=== PATIENT | male | born 1935 | race Caucasian/White ===

== ENCOUNTER → 2016-11-16 | Outpatient (CLI) | payer OTHER, BC ==
[~2016-11-16] MED LIST: AMLO-110 PO; ASPCH81X PO; CALC667C4 PO; FLV1 PO; METO25TA56 PO; MULT-648 PO; NVLGI7030 SC; PRAV40TA2 PO; STLS PO
== END | disposition home or self-care (01) ==
LOC: C.LAB 15:28
PROVIDERS: ATTEND Urology
DX: C61 Malignant neoplasm of prostate (principal)

== ENCOUNTER 2017-01-28 07:49 | Day surgery (SDC) | payer OTHER, BC ==
[~2017-01-28] VITALS: Ht 175.3 cm; Wt 97.1 kg
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
[~2017-01-28 07:49] MED LIST changes: +CEFAZOLIN 1000MG/55 ML D5W IV SCH; +CEFAZOLIN 2000 MG/60 ML D5W IV SCH; +SODIUM CHLORIDE 0.9% 1000ML 1,000 ML IV SCH
[2017-01-28 08:32] VITALS: BP 158/70; PULSE 71; TEMP 36.8; O2SAT 94; Ht 175.3 cm; Wt 97.1 kg
--- NOTE | 2017-01-28 08:52 | History & Physical Bridge Note ---
H&P Re-Evaluation Bridge Note: I have examined the patient, reviewed the History & Physical and in the interval since the performance of the History & Physical I have noted the following changes of clinical significance: No changes noted
--- NOTE | 2017-01-28 08:52 | Procedure Note ---
Pre-Mod Sedation Assessment General Date of Moderate Sedation: Jan 28, 2017. Vital Signs: Vital Signs Past 12 Hours Date Time Temp Pulse Resp B/P Pulse Ox O2 Delivery O2 Flow Rate FiO2 01/28/17 08:32 36.8 71 20 158/70 94 Room Air Pre-Sedation Airway Assessment Oral Cavity: Dentures Short Thick Neck: No Hx of Sleep Apnea: No Smoking Status: Never Smoker Mallampati Classification: Class I ASA Classification: Class II Notes The planned sedation has been discussed with the patient and consent obtained. I have identified the patient, determined the appropriateness of sedation and have assessed the patient immediately prior to the procedure. All medicine(s) and interventions are by my order.
[2017-01-28 09:06] LABS: BUN/CREATININE RATIO 10.4 (10-20); CREATININE 6.1 mg/dl (0.60-1.40)
[2017-01-28] MEDS ORDERED: MIDAZOLAM HCL 1 MG/ML 2ML VIAL ONE (09:55)
[2017-01-28] MEDS ORDERED: FENTANYL CITRATE INJ 50 MCG/1 ML 2 ML VIAL ONE (09:55)
[2017-01-28] MEDS ORDERED: LIDOCAINE HCL 1% 20 ML VIAL INJ ONE (10:21)
[2017-01-28] MEDS ORDERED: MIDAZOLAM HCL 1 MG/ML 2ML VIAL IV ONE (10:27)
[2017-01-28] MEDS ORDERED: FENTANYL CITRATE INJ 50 MCG/1 ML 2 ML VIAL IV ONE (10:28)
[2017-01-28] MEDS ORDERED: NURSING VERBAL MED ORDER ONE (10:30)
[2017-01-28] MEDS ORDERED: OPTIRAY 300 IV ONE (10:44)
[2017-01-28 11:00] VITALS: BP 168/74; PULSE 75; TEMP 36.7; O2SAT 95
--- NOTE | 2017-01-28 11:01 | Discharge Instructions ---
Discharge Instructions Date of Service Jan 28, 2017. Visit Reason for Visit: Peripheral Artery Disease -Left Upper Extremity Discharge Discharge Diagnosis / Problem: Malfunctioning fistula Discharge Goals Goal(s): Therapeutic intervention Activity Recommendations Activity Limitations: per Instructions/Follow-up section Anesthesia . Post Anesthesia Instructions: If you have had General Anesthesia or IV Sedation: * Do not drive today. * Resume driving when surgeon permits. * Do not make important decisions or sign legal documents today. * Call surgeon for: 1. Temperature elevations greater than 101 degrees F. 2. Uncontrollable pain. 3. Excessive bleeding. 4. Persistent nausea and vomiting. 5. Medication intolerance (nausea, vomiting or rash). * For nausea and vomiting use only clear liquids such as: tea, soda, bouillon until nausea subsides, then gradually increase diet as tolerated. * If you have any concerns or questions, call your surgeon's office. If physician is unavailable and it is an emergency, call 911 or go to the nearest emergency room. . Instructions / Follow-Up Instructions / Follow-Up Call [phone] to schedule a follow up appointment if one not already scheduled. SPECIAL CARE INSTRUCTIONS: Medications: * Continue to take your medications as directed. If you have been given a prescription for Plavix, please fill it immediately and take as directed. Incision Care: * Your puncture site may have some bruising and minor swelling for about one week. * You will have a small dressing covering your puncture site. You may remove the dressing after 24 hours and shower. You may let the warm soapy water run over it, but be sure to dry the puncture site well and keep it dry. * DO NOT IMMERSE THE INCISION IN A TUB/POOL/etc. UNTIL HEALED. * Puncture sites should be kept covered with a band-aid until it begins to heal. Restrictions: * Depending on whether you leg or arm was punctured to access the arteries, you will be required to lay flat, hold your arm still, or both, for about 4 hours after the procedure to prevent bleeding. * Limit your activity for the first 48 hours. You may walk and go up and down steps. Avoid excessive bending or movement at the puncture site. Possible Complications: * Excessive Swelling - after blood flow is improved you may notice increased swelling in the lower legs. This is a normal response. This usually depends on the amount of blockages in the leg, how long they have been there prior to your procedure and how much blood flow was restored. Elevating your legs will help to improve this. Please notify our office ([phone] ) if the swelling does not go away after lying in bed overnight. * Infection/Drainage/Bleeding - Drainage or bleeding from the puncture site should be minimal. If you have excessive bleeding or drainage, call our office ([phone]) right away. * Pain - You may experience some mild pain or soreness at your puncture site. If your pain does not improve, please contact our office ([phone]). Call your doctor and seek emergent treatment if you develop: * Temperature above 101 degrees * Any fever or chills * Any redness or purulent drainage from the puncture site * Any new dusky/blue colored toes or feet with coolness or sharp or aching pain. SKIN IRRITATION: * You may experience some redness and/or swelling in the area where radiation was administered. If any skin irritation occurs, please contact your family physician. FOLLOW UP VISIT: Keep any scheduled doctor appointments. Diet Recommendations Recommended Home Diet: resume previous diet Procedures Procedures Performed: Fistulogram, Percutaneous Transluminal Angioplasty and Stenting Peripheral Venous, Moderate Concious Sedation 1027 to 1051 Pending Studies Studies pending at discharge: no Medical Emergencies . Who to Call and When: Medical Emergencies: If at any time you feel your situation is an emergency, please call 911 immediately. . Non-Emergent Contact Non-Emergency issues call your: Surgeon . . "Provider Documentation" section prepared by Charly Hanna.
--- NOTE | 2017-01-28 11:02 | Procedure Note ---
Post-Moderate Sedation Plan General Date of Moderate Sedation Jan 28, 2017. Vital Signs: Vital Signs Past 12 Hours Date Time Temp Pulse Resp B/P Pulse Ox O2 Delivery O2 Flow Rate FiO2 01/28/17 08:32 36.8 71 20 158/70 94 Room Air Review - Discharge Plan Post Moderate Sedation Plan: On clinical assessment, the patient appears to have tolerated the conscious sedation without complications. Patient is recovering as anticipated. Patient will continue to be monitored by nursing and may be discharged when conscious sedation discharge criteria are met.
--- NOTE | 2017-01-28 11:06 | [facility] Post Operative Brief Note ---
Immediate Operative Summary Operative Date Jan 28, 2017. Pre-Operative Diagnosis Malfunctioning left upper arm fistula Post-Operative Diagnosis same Procedure(s) Performed Fistulogram, Percutaneous Transluminal Angioplasty and Stenting Peripheral Venous, Moderate Concious Sedation [address] Hanna Lpn Private Duty Surgeon(s) none Estimated Blood Loss 10 ml Findings good thrill after procedure Specimens none Anesthesia Local with moderate sedation Complication(s) None Disposition
--- NOTE | 2017-01-28 11:28 | Medical Student: [facility] ---
Immediate Operative Summary Operative Date Jan 28, 2017. Pre-Operative Diagnosis malfunctioning left arm fistula Post-Operative Diagnosis same Procedure(s) Performed left arm fistulogram w percutaneous transuluminal angioplasty and peripheral venous stenting Surgeon Dr. Hanan Brazer Controlled Atmospheric Furnace Surgeon(s) none Estimated Blood Loss 10cc Findings palpable bruit in fistula Specimens none Anesthesia local Complication(s) None Disposition Recovery Room / PACU
[2017-01-28 11:30] VITALS: BP 149/69; PULSE 66; O2SAT 95
--- NOTE | 2017-01-28 11:44 | DIAGNOSTIC IMAGING REPORT ---
DATE OF PROCEDURE: 01/28/2017 PREOPERATIVE DIAGNOSIS: Malfunctioning left upper arm arteriovenous fistula. POSTOPERATIVE DIAGNOSIS: Same. PROCEDURES: Left upper extremity fistulogram, balloon angioplasty and stenting of the venous portion of the fistula, and moderate conscious sedation, 10:27-10:51. SURGEON: Dr. Hanna. ANESTHETIC: Local with moderate conscious sedation. PROCEDURE INDICATIONS: The patient is an 81-year-old gentleman with a left upper arm basilic vein transposed fistula. They are having difficulty with running the fistula dialysis. Fistulogram and possible intervention was recommended. The patient understood the risks, options and benefits and agreed to go have this procedure. DESCRIPTION OF PROCEDURE: The patient was taken to the angio suite and placed in supine position. After left arm was prepped and draped in a sterile manner, local anesthetic was administered. A percutaneous puncture was made of the fistula just beyond the arterial anastomosis using micropuncture technique. The micropuncture sheath was inserted. A fistulogram was performed which showed some irregularity of proximal portion of the fistula where there was a severe stenosis distally in the outflow vein. We at that time inserted a 0.035 wire and exchanged the sheath to a 6-Andorran sheath. Using a 6 x 4 and 8 x 4 balloon, this area was dilated. It did recoil and still had narrowing present. At that point, we decided to go ahead and stent this area and fully expanded to an 8 mm diameter. An 8 x 5 Viabahn stent was inserted after the wire was exchanged for a 0.018. The sheath was also exchanged for a 7-Andorran sheath. The Viabahn was inserted and placed over the narrowing. It was deployed without difficulty. An 8 mm balloon was then used to fully expand the stent. We then inserted a 6 mm balloon and smooth out of the proximal portion of the vein, which had 3 areas of irregularity. This responded nicely to the ballooning. A followup fistulogram showed excellent flow through the fistula and no residual stenosis of the stenotic area. The sheath was then pulled, pressure was applied. Adequate hemostasis was obtained. Sterile dressings were then applied to the wound and the patient left the angio suite in good condition and tolerated the procedure well.
[2017-01-28 12:00] VITALS: BP 160/68; PULSE 66; TEMP 36.6; O2SAT 95
[2017-07-23] MEDS ORDERED: DOCU-94 PO (10:37)
[2017-07-23] MEDS ORDERED: FOLI1TAB7 PO (10:38)
[2017-07-30] MEDS ORDERED: OXYC-57 PO (09:53)
== END 2017-01-28 12:07 | disposition home or self-care (01) ==
LOC: C.ACU 07:49
PROVIDERS: ATTEND Surgery Vascular Surgery
DX: T82.9XXA Unspecified complication of cardiac and vascular prosthetic device, implant and graft, initial encounter (principal); Y84.8 Other medical procedures as the cause of abnormal reaction of the patient, or of later complication, without mention of misadventure at the time of the procedure; I12.0 Hypertensive chronic kidney disease with stage 5 chronic kidney disease or end stage renal disease; N18.6 End stage renal disease; Z88.2 Allergy status to sulfonamides; Z90.49 Acquired absence of other specified parts of digestive tract; Z85.46 Personal history of malignant neoplasm of prostate; Z90.89 Acquired absence of other organs; Z98.890 Other specified postprocedural states; E78.00 Pure hypercholesterolemia, unspecified; Z80.9 Family history of malignant neoplasm, unspecified; Z82.49 Family history of ischemic heart disease and other diseases of the circulatory system

== ENCOUNTER 2017-05-30 11:45 | Day surgery (SDC) | payer OTHER, BC ==
[~2017-05-30] VITALS: Ht 175.3 cm; Wt 94.3 kg
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
[~2017-05-30 11:45] MED LIST changes: -CEFAZOLIN 2000 MG/60 ML D5W IV SCH; +D5W AND 1/4NSS 1,000 ML IV SCH; -SODIUM CHLORIDE 0.9% 1000ML 1,000 ML IV SCH
--- NOTE | 2017-05-30 11:48 | Procedure Note ---
Pre-Mod Sedation Assessment General Date of Moderate Sedation: May 30, 2017. Pre-Sedation Airway Assessment Smoking Status: Never Smoker Mallampati Classification: Class I ASA Classification: Class II Notes The planned sedation has been discussed with the patient and consent obtained. I have identified the patient, determined the appropriateness of sedation and have assessed the patient immediately prior to the procedure. All medicine(s) and interventions are by my order.
[2017-05-30 12:40] VITALS: BP 175/83; PULSE 75; TEMP 36.7; O2SAT 96; Ht 175.3 cm; Wt 94.3 kg
--- NOTE | 2017-05-30 15:07 | [facility] Operative Report ---
Operative Report Operative Date May 30, 2017. Pre-Operative Diagnosis ESRD Post-Operative Diagnosis same Surgeon jeannie Photographic Restorer Surgeon(s) Keith gupta Drains none Anesthesia MAC Complication(s) None Disposition Recovery Room / PACU I attest to the content of the Intraoperative Record and any orders documented therein. Any exceptions are noted below.
[2017-05-30 15:11] VITALS: BP 175/83; PULSE 75; TEMP 36.7; O2SAT 96
[2017-05-30] MEDS ORDERED: MIDAZOLAM HCL 1 MG/ML 2ML VIAL ONE (15:13)
[2017-05-30] MEDS ORDERED: FENTANYL CITRATE INJ 50 MCG/1 ML 2 ML VIAL ONE (15:13)
[2017-05-30] MEDS ORDERED: FENTANYL CITRATE INJ 50 MCG/1 ML 2 ML VIAL IV ONE (15:41)
[2017-05-30] MEDS ORDERED: OPTIRAY 300 IV ONE ×2 (15:53→16:01)
[2017-05-30] MEDS ORDERED: LIDOCAINE HCL 1% 20 ML VIAL INJ ONE (15:53)
--- NOTE | 2017-05-30 15:53 | [facility] Post Operative Brief Note ---
Immediate Operative Summary Operative Date May 30, 2017. Pre-Operative Diagnosis Malfunctioning fistula Post-Operative Diagnosis same Procedure(s) Performed Fistulogram, left upper arm COMPUTER FORENSIC SPECIALIST venous Surgeon jeannie Testing Coordinator Surgeon(s) Keith gupta Estimated Blood Loss 3cc Findings no residual stenosis, but prox fistula very irregular Specimens none Anesthesia Local Complication(s) None Disposition
--- NOTE | 2017-05-30 15:54 | Discharge Instructions ---
Discharge Instructions Date of Service May 30, 2017. Visit Reason for Visit: End Stage Renal Disease Discharge Discharge Diagnosis / Problem: Malfunctioning fistula Discharge Goals Goal(s): Therapeutic intervention Activity Recommendations Activity Limitations: resume your previous activity Anesthesia . Post Anesthesia Instructions: If you have had General Anesthesia or IV Sedation: * Do not drive today. * Resume driving when surgeon permits. * Do not make important decisions or sign legal documents today. * Call surgeon for: 1. Temperature elevations greater than 101 degrees F. 2. Uncontrollable pain. 3. Excessive bleeding. 4. Persistent nausea and vomiting. 5. Medication intolerance (nausea, vomiting or rash). * For nausea and vomiting use only clear liquids such as: tea, soda, bouillon until nausea subsides, then gradually increase diet as tolerated. * If you have any concerns or questions, call your surgeon's office. If physician is unavailable and it is an emergency, call 911 or go to the nearest emergency room. . Instructions / Follow-Up Instructions / Follow-Up Call [phone] to schedule a follow up appointment if one not already scheduled. SPECIAL CARE INSTRUCTIONS: Medications: * Continue to take your medications as directed. If you have been given a prescription for Plavix, please fill it immediately and take as directed. Incision Care: * Your puncture site may have some bruising and minor swelling for about one week. * You will have a small dressing covering your puncture site. You may remove the dressing after 24 hours and shower. You may let the warm soapy water run over it, but be sure to dry the puncture site well and keep it dry. * DO NOT IMMERSE THE INCISION IN A TUB/POOL/etc. UNTIL HEALED. * Puncture sites should be kept covered with a band-aid until it begins to heal. Restrictions: * Depending on whether you leg or arm was punctured to access the arteries, you will be required to lay flat, hold your arm still, or both, for about 4 hours after the procedure to prevent bleeding. * Limit your activity for the first 48 hours. You may walk and go up and down steps. Avoid excessive bending or movement at the puncture site. Possible Complications: * Excessive Swelling - after blood flow is improved you may notice increased swelling in the lower legs. This is a normal response. This usually depends on the amount of blockages in the leg, how long they have been there prior to your procedure and how much blood flow was restored. Elevating your legs will help to improve this. Please notify our office ([phone] ) if the swelling does not go away after lying in bed overnight. * Infection/Drainage/Bleeding - Drainage or bleeding from the puncture site should be minimal. If you have excessive bleeding or drainage, call our office ([phone]) right away. * Pain - You may experience some mild pain or soreness at your puncture site. If your pain does not improve, please contact our office ([phone]). Call your doctor and seek emergent treatment if you develop: * Temperature above 101 degrees * Any fever or chills * Any redness or purulent drainage from the puncture site * Any new dusky/blue colored toes or feet with coolness or sharp or aching pain. SKIN IRRITATION: * You may experience some redness and/or swelling in the area where radiation was administered. If any skin irritation occurs, please contact your family physician. FOLLOW UP VISIT: Keep any scheduled doctor appointments. Diet Recommendations Recommended Home Diet: resume previous diet Procedures Procedures Performed: Fistulogram, left upper arm BOILER HOUSE SUPERVISOR venous Pending Studies Studies pending at discharge: no Medical Emergencies . Who to Call and When: Medical Emergencies: If at any time you feel your situation is an emergency, please call 911 immediately. . Non-Emergent Contact Non-Emergency issues call your: Surgeon . . "Provider Documentation" section prepared by Charly Hanna. .
[2017-05-30 16:05] VITALS: BP 150/60; PULSE 79; TEMP 36.7; O2SAT 96
--- NOTE | 2017-05-30 16:14 | [facility] Operative Report ---
Operative Report Operative Date May 30, 2017. Pre-Operative Diagnosis Malfunctioning fistula Post-Operative Diagnosis Same Procedure(s) Performed Fistulogram, left upper arm VENEER REPAIRER MACHINE venous Surgeon Cyndi Retaining Room Cutter Surgeon(s) Keith Richter, Fellow Estimated Blood Loss 5 Findings Patient had 2 areas of stenosis in the AV fistula 1 was just proximal to the prior stent. With a small area of dilation and a second area of slight stenosis. Contrast 30 mL Radiation dose 12 mGy Fluoroscopy time 1.7 minutes Specimens none Drains none Anesthesia Local Complication(s) None Disposition Recovery Room / PACU Indications 82-year-old gentleman with end-stage renal disease on hemodialysis. Patient has been having difficulty with dialysis lately. Fistula has not been functioning well. Description of Procedure The patient was brought to the operating room and laid supine on the table. After sedation was administered, the left arm was prepped and draped in a standard surgical fashion. Continuous pulse oximetry and cardiac monitoring were performed throughout the procedure. The skin overlying the AV fistula was injected with 1% lidocaine solution. Micropuncture needle was used to access the AV fistula followed by a wire and a micropuncture sheath. Fistulogram was performed showing 2 areas of stenosis one just proximal to the pre-existing stent and a knee area of dilation followed by a area of slight stenosis just distal to the AV anastomosis. The fistula was followed centrally and evaluation of the central venous system was completed showing no significant areas of stenosis all the way to the superior vena cava. An 0.035 angled glide guidewire was used across the stenosis. The micropuncture sheath was then exchanged over the wire for a 5 Faro[place] sheath. An [place] 7 x 60 mm balloon was advanced across the area of stenosis just proximal to the pre-existing stent and was inflated. A small area of stenosis persisted following the balloon angioplasty. The balloon was then removed and the 5 Faroese sheath was exchanged over the wire for a 6 Faroese sheath. A noncompliant conquest 6 x 40 mm balloon was then advanced across the area stenosis and inflated. Following the angioplasty the balloon was removed and a follow-up completion fistulogram was completed which demonstrated excellent results with no significant residual stenosis.The patient had a nice palpable thrill at this point. The sheath was removed and gentle pressure was held over the puncture site for approximately 5 minutes. After adequate hemostasis was achieved, the area was cleansed in 22 and Tegaderm was applied. The patient tolerated the procedure without any complications. Dr. Hanna was present and scrubbed for the entire case. The sponge, instrument, and needle counts are correct at the end of the case. The patient was subsequently taken to PACU in stable condition. I, Dr. Hanna was present and scrubbed for the entire procedure. I attest to the content of the Intraoperative Record and any orders documented therein. Any exceptions are noted below.
[2017-05-30 16:45] VITALS: BP 151/60; PULSE 79; TEMP 36.7; O2SAT 98
[2017-07-23] MEDS ORDERED: DOCU-94 PO (10:37)
[2017-07-23] MEDS ORDERED: FOLI1TAB7 PO (10:38)
== END 2017-05-30 16:45 | disposition home or self-care (01) ==
LOC: C.ACU 11:45
PROVIDERS: ATTEND Surgery Vascular Surgery
DX: T82.590A Other mechanical complication of surgically created arteriovenous fistula, initial encounter (principal); I12.0 Hypertensive chronic kidney disease with stage 5 chronic kidney disease or end stage renal disease; N18.6 End stage renal disease; Y83.2 Surgical operation with anastomosis, bypass or graft as the cause of abnormal reaction of the patient, or of later complication, without mention of misadventure at the time of the procedure; Z85.46 Personal history of malignant neoplasm of prostate; E11.22 Type 2 diabetes mellitus with diabetic chronic kidney disease; Z79.4 Long term (current) use of insulin

== ENCOUNTER → 2017-07-30 | Day surgery (SDC) | payer OTHER, BC ==
--- NOTE | 2017-07-23 11:15 | PAT Medication Instructions ---
Service Date Jul 23, 2017. Current Home Medication List Amlodipine (Norvasc), 5 MG PO QAM Aspirin (Aspirin Chewable), 81 MG PO 2XWK Calcium Acetate (Phoslo 667 Mg), 1 CAP PO WITH MEAL AND SNACKS Docusate Sodium (Colace), 1 CAP PO BID Folic Acid (Folvite), 1 MG PO QAM Insulin Aspart 70/30 (Novolog Mix 70/30), 55 UNIT SC BEFORE BREAKFAST Insulin Aspart 70/30 (Novolog Mix 70/30), 62 UNITS SC BEFORE SUPPER Metoprolol Tartrate (Lopressor) (Lopressor), 25 MG PO HS Metoprolol Tartrate (Lopressor) (Lopressor), 2 TAB PO QAM Pravastatin Sodium (Pravastatin Sodium), 1 TAB PO QPM Medication Instructions For Your Scheduled Surgery - Hold the following medications the morning of surgery: Folic Acid (Folvite), 1 MG PO QAM Docusate Sodium (Colace), 1 CAP PO BID Calcium Acetate (Phoslo 667 Mg), 1 CAP PO WITH MEAL AND SNACKS Aspirin (Aspirin Chewable), 81 MG PO 2XWK (ONLY TAKEN SATURDAY AND FRIDAYS) - Take the following medications the morning of surgery with a sip of water: Metoprolol Tartrate (Lopressor) (Lopressor), 2 TAB PO QAM Amlodipine (Norvasc), 5 MG PO QAM - Take the following medications as scheduled the night before surgery: Pravastatin Sodium (Pravastatin Sodium), 1 TAB PO QPM Metoprolol Tartrate (Lopressor) (Lopressor), 25 MG PO HS Docusate Sodium (Colace), 1 CAP PO BID Insulin Aspart 70/30 (Novolog Mix 70/30), 62 UNITS SC BEFORE SUPPER - For Insulin Dependent Diabetic patients: Test blood sugar A.M. of surgery. - If BLOOD SUGAR IS GREATER THAN 150, take half of your regular dose of: Insulin Aspart 70/30 (Novolog Mix 70/30), 55 UNIT SC BEFORE BREAKFAST (TAKE 27 UNITS) - If BLOOD SUGAR IS LESS THAN 150, do not take any: Insulin Aspart 70/30 ( Novolog Mix 70/30), 55 UNIT SC BEFORE BREAKFAST If you have any questions please call us at [phone] or [phone] or [phone]
--- NOTE | 2017-07-23 12:05 | DIAGNOSTIC IMAGING REPORT ---
CHEST PREADMISSION(PA/LAT) CLINICAL HISTORY: 82 years-old Male presenting with preoperative assessment. TECHNIQUE: PA and lateral views of the chest were obtained. COMPARISON: 05/24/2016. FINDINGS: Interval removal of the dialysis catheter. Atherosclerosis of aortic arch. Cardiac silhouette normal in size. Lungs and pleural spaces clear. Degenerative changes of the thoracic spine. Upper abdomen normal. IMPRESSION: 1. No acute cardiopulmonary disease. Electronically signed by: Noel Urbina M.D. 07/23/2017 12:04 PM Dictated Date/Time: 07/23/2017 12:03 PM
[2017-07-23 12:42] LABS: BASO % 0.2 %; BASO ABS # 0.01 K/uL (0-0.2); COMPLETE YES; HEMATOCRIT 32.8 % (42-52); IG% 0.2 %; LYMPH % 31.9 %; LYMPH ABS # 1.58 K/uL (1.2-3.4); MEAN CELL VOLUME 93.4 fL (80-100); MEAN CORPUSCULAR HEMOGLOBIN 28.5 pg (25-34); MEAN CORPUSCULAR HGB CONC 30.5 g/dl (32-36); MEAN PLATELET VOLUME 9.8 fL (7.4-10.4); MONO % 9.5 %; NEUT % 54.2 %; PLATELET COUNT 101 K/uL (130-400); RED BLOOD COUNT 3.51 M/uL (4.7-6.1); WHITE BLOOD COUNT 4.95 K/uL (4.8-10.8)
[2017-07-23 13:12] LABS: BUN/CREATININE RATIO 7.1 (10-20); CALCIUM 8.5 mg/dl (8.5-10.1); POTASSIUM 4.2 mmol/L (3.5-5.1)
[2017-07-23 13:57] LABS: CREATININE 4.8 mg/dl (0.60-1.40)
[~2017-07-30] VITALS: Ht 175.3 cm; Wt 93.3 kg
[~2017-07-30] MED LIST changes: +ATROPINE SULFATE 0.1 MG/ML 5ML SYR IV PRN; +BUPIVACAINE/EPINEPHRINE 0.5% MPF 1:200,000 30 ML VIAL ONE; -CEFAZOLIN 1000MG/55 ML D5W IV SCH; +CEFAZOLIN 2000 MG/60 ML D5W IV SCH; -D5W AND 1/4NSS 1,000 ML IV SCH; +DOCU-94 PO; +DiphenhydrAMINE HCL 50 MG/ML VIAL ONE; +EpHEDrine SULFATE 50MG/5ML SYR ONE; +EpHEDrine SULFATE INJ 50 MG/ML AMP IV PRN; +FENTANYL CITRATE INJ 50 MCG/1 ML 2 ML VIAL ONE; -FLV1 PO; +FOLI1TAB7 PO; +GELATIN SPONGE 12-7MM ONE; +HEPARIN SOD (PORCINE) 1000 UNIT/ML 10 ML VIAL ONE; +LIDOCAINE HCL 1% 20 ML VIAL ONE; +LIDOCAINE HCL 2% 2 ML VIAL (20MG/ML) ONE; -MULT-648 PO; +OXYC-57 PO; +PATIENT'S ALLERGY INFO NEEDS ENTERED SCH; +PHENYLEPHRINE 100MCG/ML 5ML SYR ONE; +PROPOFOL IV EMULSION 10 MG/ML 20 ML VIAL IV ONE; +SODIUM CHLORIDE 0.9% 1000ML 1,000 ML IV SCH; -STLS PO; +THROMBIN FOR SOLN 20000 UNIT KIT ONE
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
[2017-07-30 07:20] VITALS: BP 166/87; PULSE 76; TEMP 37.1; O2SAT 97; Ht 175.3 cm; Wt 93.3 kg
[2017-07-30 08:42] LABS: BUN/CREATININE RATIO 8.9 (10-20); CALCIUM 8.4 mg/dl (8.5-10.1); CREATININE 4.63 mg/dl (0.60-1.40)
--- NOTE | 2017-07-30 09:50 | [facility] Post Operative Brief Note ---
Immediate Operative Summary Operative Date Jul 30, 2017. Pre-Operative Diagnosis End stage renal disease Malfunctioning av fistula Post-Operative Diagnosis SAME Procedure(s) Performed Left Brachiocephalic Arteriorvenous Fistula Creation Surgeon Dr. Hanna Shipping Clerk Surgeon(s) none Estimated Blood Loss 10 ML Findings good thrill Specimens none per surgeon Anesthesia MAC Complication(s) None Disposition Recovery Room / PACU
--- NOTE | 2017-07-30 09:57 | Discharge Instructions ---
Discharge Instructions Date of Service Jul 30, 2017. Visit Reason for Visit: End Stage Renal Disease -On Hemodialysis Discharge Discharge Diagnosis / Problem: end stage renal disease Discharge Goals Goal(s): Therapeutic intervention Activity Recommendations Activity Limitations: per Instructions/Follow-up section Anesthesia . Post Anesthesia Instructions: If you have had General Anesthesia or IV Sedation: * Do not drive today. * Resume driving when surgeon permits. * Do not make important decisions or sign legal documents today. * Call surgeon for: 1. Temperature elevations greater than 101 degrees F. 2. Uncontrollable pain. 3. Excessive bleeding. 4. Persistent nausea and vomiting. 5. Medication intolerance (nausea, vomiting or rash). * For nausea and vomiting use only clear liquids such as: tea, soda, bouillon until nausea subsides, then gradually increase diet as tolerated. * If you have any concerns or questions, call your surgeon's office. If physician is unavailable and it is an emergency, call 911 or go to the nearest emergency room. . Instructions / Follow-Up Instructions / Follow-Up Call [phone] to schedule a follow up appointment if one not already scheduled. ACTIVITY RECOMMENDATIONS: See Above SPECIAL CARE INSTRUCTIONS: Call your doctor if: * Temperature above 101 degrees * Pain not relieved by pain medicine ordered * There is increased drainage or redness from any incision * You have any unanswered questions or concerns. Diet Recommendations Recommended Home Diet: resume previous diet Procedures Procedures Performed: Left Brachiocephalic Arteriorvenous Fistula Creation Pending Studies Studies pending at discharge: no Medical Emergencies . Who to Call and When: Medical Emergencies: If at any time you feel your situation is an emergency, please call 911 immediately. . Non-Emergent Contact Non-Emergency issues call your: Surgeon . . "Provider Documentation" section prepared by Charly Hanna. .
--- NOTE | 2017-07-30 10:07 | Anesthesiology Progress Note ---
Anesthesia Post Op Note Date & Time Jul 30, 2017 at 10:07 Vital Signs Pain Intensity: 0 Vital Signs Past 12 Hours Date Time Temp Pulse Resp B/P (MAP) Pulse Ox O2 Delivery O2 Flow Rate FiO2 07/30/17 09:52 36.2 71 13 141/64 95 Room Air 07/30/17 07:20 37.1 76 20 166/87 (113) 97 Room Air Notes Mental Status: alert / awake / arousable, participated in evaluation Pt Amnestic to Procedure: Yes Nausea / Vomiting: adequately controlled Pain: adequately controlled Airway Patency, RR, SpO2: stable & adequate BP & HR: stable & adequate Hydration State: stable & adequate Anesthetic Complications: no major complications apparent
--- NOTE | 2017-07-30 10:13 | OPERATIVE REPORT ---
DATE OF OPERATION: 07/30/2017 PREOPERATIVE DIAGNOSIS: Endstage renal disease. POSTOPERATIVE DIAGNOSIS: Same. PROCEDURE: Left antecubital cephalic vein AV fistula creation. SURGEON: Dr. Hanna. ANESTHETIC: MAC. PROCEDURE INDICATIONS: The patient is an 82-year-old male with endstage renal disease. He does have a left basilic vein fistula which has had multiple interventions and is having difficulty running with pulling clot and inability to get good runs. Creation of a new fistula was recommended. He understood the risks, options and benefits, and agreed to have this procedure. OPERATION AND FINDINGS: The patient was taken to the operating room and placed in supine position. After left arm was prepped and draped in a sterile manner, local anesthetic was administered. A transverse incision was made just below the antecubital fossa. The cephalic vein was identified at that level. It was of good caliber. The brachial artery was then identified also at that level. This was below the basilic vein fistula anastomosis. Once they were isolated, the cephalic vein was then ligated distally and transected. The brachial artery was clamped proximally and distally. Longitudinal arteriotomy was then made. An end-to-side anastomosis was accomplished between the cephalic vein and the brachial artery using a running 6-0 Prolene suture in the usual vascular fashion. Prior to completing the closure, backbleeding and forward bleeding was allowed to occur and final few sutures were placed and securely tied. Clamps then were removed and excellent thrill was felt in the fistula. Adequate hemostasis was then noted. The wound was then closed in the usual fashion using a running 3-0 Vicryl suture for the subcutaneous layer and a running 4-0 Vicryl subcuticular suture for skin edges. Dermabond was used for dressing. The patient left the operating room in satisfactory condition, tolerated the procedure well. I attest to the content of the Intraoperative Record and any orders documented therein. Any exception s are noted below.
[2017-07-30 10:15] VITALS: BP 152/68; PULSE 69; TEMP 36.8; O2SAT 95
[2017-07-30 10:45] VITALS: BP 139/63; PULSE 71; TEMP 37; O2SAT 94
== END | disposition home or self-care (01) ==
LOC: C.ACU 06:57
PROVIDERS: ATTEND Surgery Vascular Surgery
DX: N18.9 Chronic kidney disease, unspecified (principal); I12.9 Hypertensive chronic kidney disease with stage 1 through stage 4 chronic kidney disease, or unspecified chronic kidney disease; E11.22 Type 2 diabetes mellitus with diabetic chronic kidney disease; I25.10 Atherosclerotic heart disease of native coronary artery without angina pectoris; Z99.2 Dependence on renal dialysis; I25.2 Old myocardial infarction; Z88.2 Allergy status to sulfonamides; Z79.4 Long term (current) use of insulin; Z79.899 Other long term (current) drug therapy; Z85.46 Personal history of malignant neoplasm of prostate; Z86.73 Personal history of transient ischemic attack (TIA), and cerebral infarction without residual deficits; E66.9 Obesity, unspecified; Z68.30 Body mass index [BMI] 30.0-30.9, adult; Z82.49 Family history of ischemic heart disease and other diseases of the circulatory system; Z80.9 Family history of malignant neoplasm, unspecified

== ENCOUNTER 2017-11-22 16:34 | Inpatient (IN) | payer OTHER, BC ==
[~2017-11-22] VITALS: Ht 175.3 cm; Wt 90.9 kg
[~2017-11-22 16:34] MED LIST changes: -ATROPINE SULFATE 0.1 MG/ML 5ML SYR IV PRN; -BUPIVACAINE/EPINEPHRINE 0.5% MPF 1:200,000 30 ML VIAL ONE; -CEFAZOLIN 2000 MG/60 ML D5W IV SCH; -DiphenhydrAMINE HCL 50 MG/ML VIAL ONE; -EpHEDrine SULFATE 50MG/5ML SYR ONE; -EpHEDrine SULFATE INJ 50 MG/ML AMP IV PRN; -FENTANYL CITRATE INJ 50 MCG/1 ML 2 ML VIAL ONE; -FOLI1TAB7 PO; +FOLI1TAB8 PO; -GELATIN SPONGE 12-7MM ONE; -HEPARIN SOD (PORCINE) 1000 UNIT/ML 10 ML VIAL ONE; -LIDOCAINE HCL 1% 20 ML VIAL ONE; -LIDOCAINE HCL 2% 2 ML VIAL (20MG/ML) ONE; -OXYC-57 PO; -PATIENT'S ALLERGY INFO NEEDS ENTERED SCH; -PHENYLEPHRINE 100MCG/ML 5ML SYR ONE; -PRAV40TA2 PO; -PROPOFOL IV EMULSION 10 MG/ML 20 ML VIAL IV ONE; -SODIUM CHLORIDE 0.9% 1000ML 1,000 ML IV SCH; -THROMBIN FOR SOLN 20000 UNIT KIT ONE
[2017-11-22] MEDS ORDERED: PRAV40TA2 PO (17:14)
[2017-11-22] MEDS ORDERED: NVLGI7030 SC (17:14)
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
--- NOTE | 2017-11-22 17:46 | DIAGNOSTIC IMAGING REPORT ---
CHEST ONE VIEW PORTABLE CLINICAL HISTORY: 82 years-old Male presenting with CHEST PAIN. TECHNIQUE: Portable upright AP view of the chest was obtained. COMPARISON: 07/23/2017. FINDINGS: Atherosclerosis of the aortic arch. Cardiac silhouette top normal in size. Lungs and pleural spaces clear. Degenerative changes of the thoracic spine. IMPRESSION: 1. No acute cardiopulmonary disease. Electronically signed by: Noel Urbina M.D. 11/22/2017 5:44 PM Dictated Date/Time: 11/22/2017 5:43 PM
[2017-11-22] MEDS ORDERED: FLV1 PO (18:16)
[2017-11-22] MEDS ORDERED: MULT-648 PO (18:16)
[2017-11-22] MEDS ORDERED: INSUINJ13 SC (18:16)
[2017-11-22] MEDS ORDERED: NRV/5 PO (18:16)
[2017-11-22] MEDS ORDERED: CALC667C PO (18:16)
[2017-11-22] MEDS ORDERED: ASPI81TA28 PO (18:16)
[2017-11-22 18:58] LABS: EOS % 0.9 %; EOS ABS # 0.06 K/uL (0-0.5); HEMATOCRIT 22.3 % (42-52); HEMOGLOBIN 7.1 g/dL (14.0-18.0); IG# 0.09 K/uL (0.00-0.02); LYMPH % 13.9 %; LYMPH ABS # 0.89 K/uL (1.2-3.4); MEAN CELL VOLUME 97.4 fL (80-100); MEAN CORPUSCULAR HGB CONC 31.8 g/dl (32-36); MEAN PLATELET VOLUME 9.5 fL (7.4-10.4); MONO % 7.5 %; MONO ABS # 0.48 K/uL (0.11-0.59); NEUT % 76.3 %; NEUT ABS # 4.89 K/uL (1.4-6.5); NUCLEATED RED BLOOD CELL ABS 0.02 K/uL (0-0); PLATELET COUNT 128 K/uL (130-400); RED CELL DISTRIBUTION WIDTH CV 20.4 % (11.5-14.5); RED CELL DISTRIBUTION WIDTH SD 66.8 fL (36.4-46.3); WHITE BLOOD COUNT 6.41 K/uL (4.8-10.8)
[2017-11-22 19:00] LABS: PTT PATIENT 23.3 SECONDS (21.0-31.0)
[2017-11-22 19:02] LABS: ALBUMIN 3.3 gm/dl (3.4-5.0); CALCIUM 8.8 mg/dl (8.5-10.1); CREATININE 3.92 mg/dl (0.60-1.40); POTASSIUM 4.9 mmol/L (3.5-5.1)
[2017-11-22 19:06] LABS: PHOSPHORUS 3.1 mg/dl (2.5-4.9); TOTAL PROTEIN 7.2 gm/dl (6.4-8.2)
[2017-11-22 19:32] LABS: INFLUENZA B ANTIGEN Neg for Influ B (NEG)
[2017-11-22] MEDS ORDERED: PANTOprazole INJ 40 MG in SYRINGE 0 ML IV ONE (20:00)
--- NOTE | 2017-11-22 21:24 | DIAGNOSTIC IMAGING REPORT ---
(CHEST) THORAX WITHOUT CT DOSE: HISTORY: Metastasis hematemesis/hemoptysis TECHNIQUE: Multiaxial CT images of the chest were performed without contrast. A dose lowering technique was utilized adhering to the principles of ALARA. COMPARISON: 05/04/2013 FINDINGS: Unchanging seen substernal thyroid. This again is more prominent involving the left lobe is compared to the right. There is mild displacement of the trachea to the right similar compared to the prior study. Emphysematous changes throughout both lungs appear stable. Multiple parenchymal nodules are noted. These appear to have progressed in terms of size. A brittany process medial aspect left base currently measuring 1.8 cm previously measured 1.1 cm. Progressive nodularity posterior right cusp right-angled currently measures 1.4 cm increased from 1 cm on the prior study. Similar increase is noted at all additional sites. There is no significant mediastinal or hilar adenopathy. There is moderate tortuosity and ectasia thoracic aorta. Blebs are noted bilaterally and appear stable compared to the prior study. IMPRESSION: 1. Multifocal pulmonary nodularity all moderately increased in size compared to the prior study. 2. Possibility of a metastatic process must be considered. 3. Emphysematous change considered stable. 4. Enlarged substernal thyroid unchanged from the prior exam. The above report was generated using voice recognition software. It may contain grammatical, syntax or spelling errors. Electronically signed by: Rahul Dewitt M.D. 11/22/2017 9:22 PM Dictated Date/Time: 11/22/2017 9:19 PM
--- NOTE | 2017-11-22 21:35 | DIAGNOSTIC IMAGING REPORT ---
ABD/PELVIS NO IV OR ORAL CONT CT DOSE: 1385.74 mGy.cm HISTORY: Pain. Nausea. hematemesis/hemoptysis TECHNIQUE: Multiaxial CT images of the abdomen and pelvis were performed without contrast. A dose lowering technique was utilized adhering to the principles of ALARA. COMPARISON STUDY: 03/18/2012 FINDINGS: Limited exam due to the absence of contrast enhancement. Hepatic hypodensities are again noted. These are difficult to directly compared to the prior study but are grossly unchanged. Gallbladder is negative for distention. Mild cortical scarring and atrophy of the kidneys bilaterally bilaterally. No evidence for hydronephrosis. Postoperative changes to the anterior abdominal wall are again noted. Small fat-containing ventral hernia is similar to the prior study. It shows no evidence for bowel containment or obstructive characteristics. A second fat-containing ventral hernia inferior to the umbilicus is also noted. This is also unchanged. Bladder is midline. 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 Bowel pattern overall is nonobstructive. There is no free fluid within the pelvic cul-de-sac. The bowel pattern is considered nonobstructive. There is no significant brittany pathology. IMPRESSION: 1. Generally stable exam compared to the prior study of 03/18/2012. 2. Hypodensities within the hepatic lobes are grossly stable to only minimally increased in prominence. 3. Nonobstructive bowel pattern. 4. As noted in the CT of the chest report, the basilar pulmonary nodularity is progressive The above report was generated using voice recognition software. It may contain grammatical, syntax or spelling errors. Electronically signed by: Rahul Dewitt M.D. 11/22/2017 9:34 PM Dictated Date/Time: 11/22/2017 9:29 PM
[2017-11-22 21:40] VITALS: BP 114/58; PULSE 95; TEMP 37.1; O2SAT 97
[2017-11-22 21:56] VITALS: BP 139/70; PULSE 87; TEMP 37.1; O2SAT 97
[2017-11-22 22:26] VITALS: BP 135/55; PULSE 86; TEMP 37.2; O2SAT 97
[2017-11-22 23:00] VITALS: BP 140/68; PULSE 83; TEMP 36.8; O2SAT 96
[2017-11-22] MEDS ORDERED: POLYETHYLENE (MIRALAX) 17 GM PACK PO PRN (23:30)
[2017-11-22] MEDS ORDERED: ALUMINUM/MAGNESIUM/SIMETH (MAALOX MAX) 30 ML UDC PO PRN (23:30)
[2017-11-22] MEDS ORDERED: MAGNESIUM HYDROXIDE SUSP 30 ML UDC PO PRN (23:30)
[2017-11-22] MEDS ORDERED: METOPROLOL TARTRATE 1 MG/ML VIAL IV. PRN (23:30)
[2017-11-22] MEDS ORDERED: FAMOTIDINE IV INJ 20 MG in DEXTROSE 5% 100ML 100 ML IV SCH (23:30)
[2017-11-22] MEDS ORDERED: ONDANSETRON INJ 2 MG/ML 2 ML VIAL IV PRN (23:30)
--- NOTE | 2017-11-22 23:59 | History and Physical ---
History & Physical Date & Time of Service: Nov 22, 2017 at 23:50 Chief Complaint: Sob;Sore Throat Primary Care Physician: Noel Raymundo M.D. History of Present Illness Source: family, hospital records Patient is a 82 year old male with a PMH of ESRD on dialysis, T2DM, HTN, HLD, UT and stroke who presented here with worsening fatigue and shortness of breath He has been feeling short of breath for the last couple of months and has been worse with ambulation. He is able to walk 25 feet and then he becomes short of breath and has associated chest tightness. He denies any cough, palpitations, pnd, intermittent claudication fevers or chills. He does not use oxygen at home. He also started feeling very fatigued today while at dialysis and felt as if he was going to pass out. He was brought to the ED by his grandson and had a syncopal event while in the waiting room. Of note in the ED the patients Hgb was 7.1. He has noticed his stools have been dark in colour and occasionally he will have bright red blood in his stool. He says his last colonoscopy was in [address] Thompson at which time he had a polyp and needed a colon resection due to a complication during the colonoscopy. The patient notes that he does occasionally receive blood transfusions as an outpatient. Past Medical/Surgical History ESRD DMT2 UT TIA HTN HLD Prostate Cancer Family History Patient reports no known family medical history. Father -AAA Mother - Old age Brother - prostate cancer Brother- Polio Social History Smoking Status: Never Smoker Smokeless Tobacco Use: No Alcohol Use: none Drug Use: none Marital Status: Housing status: lives with family Occupational Status: retired Immunizations History of Influenza Vaccine: Yes Influenza Vaccine Date: Jul 15, 2010 History of Tetanus Vaccine?: No History of Pneumococcal: Yes History of Hepatitis B Vaccine: Unknown Multi-Drug Resistant Organisms History of MDRO: No Allergies Coded Allergies: Clarithromycin (Verified Adverse Reaction, Intermediate, confusion, 11/14/17 ) Fish Oil (Verified Adverse Reaction, Intermediate, hx of hemorrage in past , 11/14/17) Sulfa Antibiotics (Verified Adverse Reaction, Intermediate, SEVERE AGITATION/DELIRIUM, 11/14/17) Home Medications Scheduled Amlodipine Besylate (Amlodipine Besylate), 5 MG PO QAM Aspirin (Aspirin Ec), 81 MG PO 2XWK Calcium Acetate (Phosphate Bin (Phoslo 667 Mg), 667 MG PO UD Docusate Sodium (Colace), 100 MG PO BID Folic Acid (Folic Acid), 1 MG PO DAILY Insulin Aspart 70/30 (Novolog Mix 70/30), 62 UNITS SC BEFORE SUPPER Insulin Aspart Protamine & Asp (Novolog Mix 70/30 Prefill), 58 UNITS SC QAM Metoprolol Tartrate (Lopressor) (Lopressor), 25 MG PO HS Metoprolol Tartrate (Lopressor) (Lopressor), 50 MG PO QAM Multiple Vitamins W/ Minerals (Prorenal Vital), 1 TAB PO DAILY Pravastatin Sodium (Pravastatin Sodium), 40 MG PO QPM Review of Systems Constitutional: + weakness, + fatigue, No fever, No chills Respiratory: + shortness of breath, + dyspnea on exertion, No cough, No sputum , No hemoptysis Cardiovascular: + chest pain, No edema, No claudication, No palpitations Abdomen: + GI bleeding, No pain, No nausea, No vomiting, No diarrhea, No constipation Genitourinary - Male: No hematuria, No dysuria, No urinary frequency Neurologic: + weakness, + numbness/tingling Hematologic / Lymphatic: + abnormal bleeding/bruising Integumentary: No rash, No itch, No new/changing skin lesions Physical Exam Vital Signs Date Time Temp Pulse Resp B/P (MAP) Pulse Ox O2 Delivery O2 Flow Rate FiO2 11/22/17 23:04 36.8 86 16 157/61 97 Room Air 11/22/17 22:26 37.2 86 16 135/55 97 11/22/17 22:04 85 97 11/22/17 22:01 132/66 11/22/17 21:57 139/70 11/22/17 21:56 37.1 87 16 139/70 97 11/22/17 21:40 37.1 95 16 114/58 97 11/22/17 21:39 114/58 11/22/17 21:04 88 22 97 11/22/17 20:34 87 21 99 11/22/17 20:33 84 11/22/17 20:04 83 23 98 11/22/17 19:34 90 16 98 11/22/17 19:12 133/61 11/22/17 19:04 84 30 99 11/22/17 18:34 80 22 100 11/22/17 18:31 80 16 135/59 99 Room Air 11/22/17 18:04 78 17 96 11/22/17 17:34 89 19 98 11/22/17 17:07 97 Room Air 11/22/17 17:06 95 Room Air 11/22/17 17:04 81 18 98 11/22/17 17:02 135/59 11/22/17 17:02 83 11/22/17 16:42 36.3 90 18 142/55 97 Room Air General Appearance: WD/WN, no apparent distress Head: normocephalic, atraumatic Eyes: PERRL ENT: hearing grossly normal, pharynx normal Neck: supple, no JVD, no carotid bruits, trachea midline Respiratory/Chest: lungs clear, no respiratory distress, no accessory muscle use Cardiovascular: no edema, normal peripheral pulses, + systolic murmur (2/6 without radiation), + irregularly irregular Abdomen/GI: normal bowel sounds, non tender, soft Back: normal inspection, no CVA tenderness, no muscle spasm Extremities/Musculoskelatal: no calf tenderness, no pedal edema, non-tender, + pertinent finding (chronic venous changes) Neurologic/Psych: alert, normal mood/affect, oriented x 3 Skin: normal color, warm/dry, no rash Diagnostics Laboratory Results Results Past 24 Hours Test 11/22/17 18:28 11/22/17 18:29 Range/Units White Blood Count 6.41 4.8-10.8 K/uL Red Blood Count 2.29 4.7-6.1 M/uL Hemoglobin 7.1 14.0-18.0 g/dL Hematocrit 22.3 42-52 % Mean Corpuscular Volume 97.4 80-100 fL Mean Corpuscular Hemoglobin 31.0 25-34 pg Mean Corpuscular Hemoglobin Concent 31.8 32-36 g/dl Platelet Count 128 130-400 K/uL Mean Platelet Volume 9.5 7.4-10.4 fL Neutrophils (%) (Auto) 76.3 % Lymphocytes (%) (Auto) 13.9 % Monocytes (%) (Auto) 7.5 % Eosinophils (%) (Auto) 0.9 % Basophils (%) (Auto) 0.0 % Neutrophils # (Auto) 4.89 1.4-6.5 K/uL Lymphocytes # (Auto) 0.89 1.2-3.4 K/uL Monocytes # (Auto) 0.48 0.11-0.59 K/uL Eosinophils # (Auto) 0.06 0-0.5 K/uL Basophils # (Auto) 0.00 0-0.2 K/uL RDW Standard Deviation 66.8 36.4-46.3 fL RDW Coefficient of Variation 20.4 11.5-14.5 % Immature Granulocyte % (Auto) 1.4 % Immature Granulocyte # (Auto) 0.09 0.00-0.02 K/uL Nucleated RBC Absolute Count (auto) 0.02 0-0 K/uL Nucleated Red Blood Cells % 0.3 % Polychromasia 1+ Hypochromasia PRESENT Anisocytosis PRESENT Prothrombin Time 10.3 9.0-12.0 SECONDS Prothromb Time International Ratio 1.0 0.9-1.1 Activated Partial Thromboplast Time 23.3 21.0-31.0 SECONDS Partial Thromboplastin Ratio 0.9 Sodium Level 136 136-145 mmol/L Potassium Level 4.9 3.5-5.1 mmol/L Chloride Level 99 98-107 mmol/L Carbon Dioxide Level 29 21-32 mmol/L Anion Gap 8.0 3-11 mmol/L Blood Urea Nitrogen 32 7-18 mg/dl Creatinine 3.92 0.60-1.40 mg/dl Est Creatinine Clear Calc Drug Dose 15.8 ml/min Estimated GFR () 15.4 Estimated GFR (Non- 13.3 BUN/Creatinine Ratio 8.2 10-20 Random Glucose 169 70-99 mg/dl Calcium Level 8.8 8.5-10.1 mg/dl Phosphorus Level 3.1 2.5-4.9 mg/dl Magnesium Level 2.3 1.8-2.4 mg/dl Total Bilirubin 0.4 0.2-1 mg/dl Direct Bilirubin 0.1 0-0.2 mg/dl Aspartate Amino Transf (AST/SGOT) 14 15-37 U/L Alanine Aminotransferase (ALT/SGPT) 22 12-78 U/L Alkaline Phosphatase 54 45-117 U/L Troponin I 0.016 0-0.045 ng/ml Total Protein 7.2 6.4-8.2 gm/dl Albumin 3.3 3.4-5.0 gm/dl Lipase 183 73-393 U/L Influenza Type A Antigen Neg for Influ A NEG Influenza Type B Antigen Neg for Influ B NEG Diagnostic Radiology CT chest 1. Multifocal pulmonary nodularity all moderately increased in size compared to the prior study. 2. Possibility of a metastatic process must be considered. 3. Emphysematous change considered stable. 4. Enlarged substernal thyroid unchanged from the prior exam. Ct abdomen 1. Generally stable exam compared to the prior study of 03/18/2012. 2. Hypodensities within the hepatic lobes are grossly stable to only minimally increased in prominence. 3. Nonobstructive bowel pattern. 4. As noted in the CT of the chest report, the basilar pulmonary nodularity is progressive EKG Afib Impression Assessment and Plan 82 year old male with several medical problems presented to [facility] with worsening fatigue and shortness of breath. Was found to have a hgb of 7.1 and has been having dark stools. He was also found to be in afib while in the ED. 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 - Hgb 7.1 - transfused 1 unit in ED, one more unit overnight, 1 on hold - recheck hgb q6hrs - NPO - GI consult - check iron panel New onset Atrial fibrillation - Patient started on metoprolol 5mg prn for HR >100 - cardiology consult to discuss longterm management - echo ordered ESRD with dialysis - Dialysis on Mon, Wed and - creat 3.92 - monitor I/O's - consult nephro - hold home meds DMT2 - last Hba1c was 5.6 in August - hold 70/30 insulin - start ISS - check blood sugars [facility] HTN - hydralazine 5mg PRN SBP >160 - hold home meds (metoprolol) HLD - hold statin Hx of prostate CA - local to prostate, had prostatectomy - no recurrence since, progressive lesions in lungs, consider PSA in the AM DVT prophylaxis - contraindicated due to GI bleed - no SCD due to venous skin changes Full code no mechanical or cardioversion Attending addendum: I have physically seen this patient, have supervised the medical residents activities, and agree with the H&P unless as otherwise noted. Assessment and Plan: Anemia secondary to GI bleed-- N.p.o. H&H every 6 hours Hemoglobin 7.1 upon admission Received 1 unit of packed RBCs in the ED and will give 1 additional unit now, and then recheck H&H 1 hour later. Protonix IV Consult gastroenterology. New onset atrial fibrillation/hypertension-- The patient will be admitted to telemetry for serial cardiac enzymes, serial EKG's, cardiac rhythm monitoring and a 2-D echocardiogram with Dopplers. Lopressor 5 mg IV every 4 hours with hold parameters. Consult cardiology. ESRD on HD-- Patient is n.p.o. due to GI bleed Consult nephrology. Diabetes mellitus-- Hold usual 70/30. Placed on Accu-Cheks before meals and at bedtime with NovoLog coverage per scale. Level of Care Telemetry Advanced Directives Existing Living Will: Yes Resuscitation Status FULL NO CARDIOV/MECH GABINO VTE Prophylaxis VTE Risk Assessment Done? Y/N: Yes Risk Level: Moderate Given or contraindicated: Contraindicated
[2017-11-23] VITALS (14 sets, daily range): BP systolic 125–173; BP diastolic 53–79; PULSE 67–88; TEMP 36.5–36.9; O2SAT 94–98; BMI 30.1
[2017-11-23] MEDS ORDERED: GLUCOSE 10 TABS/TUBE PO PRN (01:30)
[2017-11-23] MEDS ORDERED: GLUCOSE 40% GEL 15 GM TUBE PO PRN (01:30)
[2017-11-23] MEDS ORDERED: GLUCAGON FOR INJ 1 MG VIAL SQ PRN (01:30)
[2017-11-23] MEDS ORDERED: DEXTROSE 50% 50 ML SYR IV PRN (01:30)
[2017-11-23] MEDS ORDERED: METOPROLOL TARTRATE 1 MG/ML VIAL IV PRN (02:00)
[2017-11-23 06:05] LABS: HEMATOCRIT 25.9 % (42-52); HEMOGLOBIN 8.3 g/dL (14.0-18.0); MEAN CELL VOLUME 95.2 fL (80-100); MEAN CORPUSCULAR HEMOGLOBIN 30.5 pg (25-34); MEAN PLATELET VOLUME 9.5 fL (7.4-10.4); PLATELET COUNT 114 K/uL (130-400); RED CELL DISTRIBUTION WIDTH CV 20.1 % (11.5-14.5); RED CELL DISTRIBUTION WIDTH SD 61.1 fL (36.4-46.3); WHITE BLOOD COUNT 6.11 K/uL (4.8-10.8)
[2017-11-23 06:58] LABS: CREATININE 4.97 mg/dl (0.60-1.40); POTASSIUM 4.5 mmol/L (3.5-5.1); TOTAL PROTEIN 6.5 gm/dl (6.4-8.2)
[2017-11-23] MEDS: INSULIN ASPART 100 UNITS/ML 3 ML PEN SC SCH ×4 (07:00→20:38)
[2017-11-23] MEDS: CALCIUM ACETATE 667MG GELCAP PO SCH ×3 (07:30→17:31)
[2017-11-23] MEDS ORDERED: CALCIUM ACETATE 667MG GELCAP PO PRN (07:30)
[2017-11-23 08:19] LABS: HEMATOCRIT 24.8 % (42-52)
[2017-11-23] MEDS: METOPROLOL TARTRATE 25 MG TAB PO SCH ×2 (08:21→20:59)
[2017-11-23] MEDS: DOCUSATE SODIUM 100 MG CAP PO SCH ×2 (08:21→20:59)
[2017-11-23] MEDS: AMLODIPINE BESYLATE 5 MG TAB PO SCH (08:22)
[2017-11-23] MEDS: CEROVITE ADV FORMULA TAB PO SCH (08:22)
[2017-11-23] MEDS ORDERED: FAMOTIDINE IV INJ 20 MG in SYRINGE 3 ML IV SCH (09:00)
--- NOTE | 2017-11-23 10:20 | Family Medicine Progress Note ---
Progress Note Date of Service Nov 23, 2017. Subjective Pt evaluation today including: conversation w/ patient, physical exam, chart review, lab review, review of inpatient medication list Pain: No pain reported PO Intake: NPO Voiding: voiding difficulty Mr. Newby reports he feels much better after his blood transfusion. He states he has a history of receiving multiple transfusions and received 2 units approximately 1.5 weeks ago. With regards to his fatigue and chest tightness, he states this has been going on for the last 2 years and worsening. He is able to walk approximately 20 feet before he gets chest tightness and his breathing becomes more laboured. He never has these symptoms at rest. He also notes he had a "slight heart attack" in 1999, but this was discovered after the fact as he never had any symptoms. He has had 3 caths in the past, with the most recent one being 8-9 years ago, although he states intervention was never necessary. Constitutional: No fever, No chills Respiratory: + dyspnea on exertion, No cough, No sputum Cardiovascular: + problem reported (chest tightness on exertion), No palpitations Abdomen: + GI bleeding, No pain, No nausea, No vomiting, No diarrhea, No constipation Male : + slowing stream, No dysuria All Other Systems: Reviewed and Negative Medications Current Inpatient Medications Medications (Trade) Dose Ordered Sig/Kelsie Route Start Time Stop Time Status Last Admin Dose Admin Al Hydrox/Mg Hydrox/Simethicone (Maalox Max Susp) 15 ml Q4H PRN PO 11/22/17 23:30 12/22/17 23:29 Magnesium Hydroxide (Milk Of Magnesia Susp) 30 ml Q12H PRN PO 11/22/17 23:30 12/22/17 23:29 Ondansetron HCl (Zofran Inj) 4 mg Q6H PRN IV 11/22/17 23:30 12/22/17 23:29 Polyethylene (Miralax Powder Packet) 17 gm DAILY PRN PO 11/22/17 23:30 12/22/17 23:29 Amlodipine Besylate (Norvasc Tab) 5 mg QAM PO 11/23/17 09:00 12/23/17 08:59 11/23/17 08:22 5 MG Calcium Acetate (Phoslo Cap) 667 mg TIDM PRN PO 11/23/17 07:30 12/23/17 07:29 Docusate Sodium (coLACE CAP) 100 mg BID PO 11/23/17 09:00 12/23/17 08:59 11/23/17 08:21 100 MG Folic Acid (Folvite Tab) 1 mg DAILY PO 11/23/17 09:00 12/23/17 08:59 11/23/17 08:22 1 MG Insulin Aspart Prota 70%/Aspart 30% (novoLOG MIX 70/ 30) 58 units QDB SC 11/23/17 07:30 12/23/17 07:29 Metoprolol Tartrate (Lopressor Tab) 25 mg HS PO 11/23/17 21:00 12/23/17 20:59 Metoprolol Tartrate (Lopressor Tab) 50 mg QAM PO 11/23/17 09:00 12/23/17 08:59 11/23/17 08:21 50 MG Multivitamins/ Minerals (Multivitamin W/ Minerals Tab) 1 tab DAILY PO 11/23/17 09:00 12/23/17 08:59 11/23/17 08:22 1 TAB Pravastatin Sodium (Pravachol Tab) 40 mg QPM PO 11/23/17 21:00 12/23/17 20:59 Insulin Aspart Prota 70%/Aspart 30% (novoLOG MIX 70/ 30) 62 units QDD SC 11/23/17 16:45 12/23/17 16:44 Insulin Aspart (novoLOG ASPART) SLIDING SCALE G... ACHS SC 11/23/17 07:00 12/23/17 06:59 Calcium Acetate (Phoslo Cap) 1,334 mg TIDM PO 11/23/17 07:30 12/23/17 07:29 Glucose (Glucose 40% Gel) 15-30 GRAMS 15 GRAMS... UD PRN PO 11/23/17 01:30 12/23/17 01:29 Glucose (Glucose Chew Tab) 4-8 Tablets 4 Tabl... UD PRN PO 11/23/17 01:30 12/23/17 01:29 Dextrose (Dextrose 50% 50ML Syringe) 25-50ML OF 50% DW IV FOR... UD PRN IV 11/23/17 01:30 12/23/17 01:29 Glucagon (Glucagon Inj) 1 mg UD PRN SQ 11/23/17 01:30 12/23/17 01:29 Famotidine 20 mg/ Syringe 5 ml @ 2.5 mls/min Q12 IV 11/23/17 09:00 12/23/17 08:59 11/23/17 08:23 2.5 MLS/MIN Metoprolol Tartrate (Lopressor Iv) 5 mg Q4 PRN IV 11/23/17 02:00 12/22/17 23:29 Objective Vital Signs Date Time Temp Pulse Resp B/P (MAP) Pulse Ox O2 Delivery O2 Flow Rate FiO2 11/23/17 04:21 36.7 76 18 137/53 (81) 98 11/23/17 04:06 Room Air 11/23/17 01:17 36.9 80 19 173/53 97 Room Air 11/23/17 01:00 82 16 96 11/23/17 00:46 152/65 11/23/17 00:40 36.8 88 16 152/65 97 11/23/17 00:31 171/79 11/23/17 00:30 87 16 96 11/23/17 00:25 36.8 85 16 155/61 96 11/23/17 00:15 155/61 11/23/17 00:10 36.7 86 16 128/79 96 11/23/17 00:01 126/79 11/23/17 00:01 36.7 85 16 126/79 97 11/23/17 00:00 86 17 99 11/22/17 23:04 36.8 86 16 157/61 97 Room Air 11/22/17 23:00 36.8 83 16 140/68 96 11/22/17 22:26 37.2 86 16 135/55 97 11/22/17 22:04 85 97 11/22/17 22:01 132/66 11/22/17 21:57 139/70 11/22/17 21:56 37.1 87 16 139/70 97 11/22/17 21:40 37.1 95 16 114/58 97 11/22/17 21:39 114/58 11/22/17 21:04 88 22 97 11/22/17 20:34 87 21 99 11/22/17 20:33 84 11/22/17 20:04 83 23 98 11/22/17 19:34 90 16 98 11/22/17 19:12 133/61 11/22/17 19:04 84 30 99 11/22/17 18:34 80 22 100 11/22/17 18:31 80 16 135/59 99 Room Air 11/22/17 18:04 78 17 96 11/22/17 17:34 89 19 98 11/22/17 17:07 97 Room Air 11/22/17 17:06 95 Room Air 11/22/17 17:04 81 18 98 11/22/17 17:02 135/59 11/22/17 17:02 83 11/22/17 16:42 36.3 90 18 142/55 97 Room Air Physical Exam General Appearance: WD/WN, no apparent distress Respiratory/Chest: lungs clear, no respiratory distress, no accessory muscle use, + decreased breath sounds Cardiovascular: regular rate, rhythm, no edema, no gallop Abdomen: non tender, soft Extremities: no pedal edema, no calf tenderness, + pertinent finding (left sided AV fistula) Laboratory Results Last 24 Hours Test 11/22/17 18:28 11/22/17 18:29 11/23/17 05:08 11/23/17 08:10 White Blood Count 6.41 K/uL 6.11 K/uL Red Blood Count 2.29 M/uL 2.72 M/uL Hemoglobin 7.1 g/dL 8.3 g/dL 8.0 g/dL Hematocrit 22.3 % 25.9 % 24.8 % Mean Corpuscular Volume 97.4 fL 95.2 fL Mean Corpuscular Hemoglobin 31.0 pg 30.5 pg Mean Corpuscular Hemoglobin Concent 31.8 g/dl 32.0 g/dl Platelet Count 128 K/uL 114 K/uL Mean Platelet Volume 9.5 fL 9.5 fL Neutrophils (%) (Auto) 76.3 % Lymphocytes (%) (Auto) 13.9 % Monocytes (%) (Auto) 7.5 % Eosinophils (%) (Auto) 0.9 % Basophils (%) (Auto) 0.0 % Neutrophils # (Auto) 4.89 K/uL Lymphocytes # (Auto) 0.89 K/uL Monocytes # (Auto) 0.48 K/uL Eosinophils # (Auto) 0.06 K/uL Basophils # (Auto) 0.00 K/uL RDW Standard Deviation 66.8 fL 61.1 fL RDW Coefficient of Variation 20.4 % 20.1 % Immature Granulocyte % (Auto) 1.4 % Immature Granulocyte # (Auto) 0.09 K/uL Nucleated RBC Absolute Count (auto) 0.02 K/uL Nucleated Red Blood Cells % 0.3 % Polychromasia 1+ Hypochromasia PRESENT Anisocytosis PRESENT Prothrombin Time 10.3 SECONDS 10.6 SECONDS Prothromb Time International Ratio 1.0 1.0 Activated Partial Thromboplast Time 23.3 SECONDS Partial Thromboplastin Ratio 0.9 Sodium Level 136 mmol/L 137 mmol/L Potassium Level 4.9 mmol/L 4.5 mmol/L Chloride Level 99 mmol/L 101 mmol/L Carbon Dioxide Level 29 mmol/L 30 mmol/L Anion Gap 8.0 mmol/L 6.0 mmol/L Blood Urea Nitrogen 32 mg/dl 46 mg/dl Creatinine 3.92 mg/dl 4.97 mg/dl Est Creatinine Clear Calc Drug Dose 15.8 ml/min 12.7 ml/min Estimated GFR () 15.4 11.6 Estimated GFR (Non- 13.3 10.0 BUN/Creatinine Ratio 8.2 9.2 Random Glucose 169 mg/dl 118 mg/dl Calcium Level 8.8 mg/dl 8.0 mg/dl Phosphorus Level 3.1 mg/dl Magnesium Level 2.3 mg/dl Total Bilirubin 0.4 mg/dl 0.7 mg/dl Direct Bilirubin 0.1 mg/dl Aspartate Amino Transf (AST/SGOT) 14 U/L 15 U/L Alanine Aminotransferase (ALT/SGPT) 22 U/L 21 U/L Alkaline Phosphatase 54 U/L 49 U/L Troponin I 0.016 ng/ml Total Protein 7.2 gm/dl 6.5 gm/dl Albumin 3.3 gm/dl 3.0 gm/dl Lipase 183 U/L Influenza Type A Antigen Neg for Influ A Influenza Type B Antigen Neg for Influ B Globulin 3.5 gm/dl Albumin/Globulin Ratio 0.9 Thyroid Stimulating Hormone (TSH) 0.281 uIu/ml Assessment and Plan Mr. 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 Was found to have a hgb of 7.1 and has been having dark stools. Anemia secondary to GI bleed - patient was told in 2014 that GI bleeding was secondary to prostate radiation (radiation proctitis?) - he has been having chronic GI bleeding for over 5 years - usually occurs episodically and lasts a couple of days - he states this episode has lasted 2 weeks and he has dark stools as well as blood in his stool - Hgb 7.1 - increased to 8.5 after being transfused 2 units - currently stable - follow H&H q8h and transfuse to maintain Hgb >8 - GI consulted - - unclear whether upper or lower GI bleeding or both - treat with PPI ( pantoprazole 40mg BID) and will plan EGD/colonoscopy - continue clear liquid diet in case urgent scope needed EKG Changes - initial EKG read was atrial fibrillation, however patient is in sinus rhythm w /PACs - continue to monitor ESRD with dialysis - Dialysis on Mon, Wed and Satd - creatinine 4.97, increased from 3.92 yesterday - monitor I/O's - thank you to nephro for consult - volume status and electrolyte balance acceptable - no need for urgent HD - monitor BMP - hold home meds DM2 - last Hba1c was 5.6 in August - continue home regimen of 70/30 insulin - continue ISS - check blood sugars [facility] HTN - resume home metoprolol and amlodipine HLD - resume statin Hx of prostate CA - local to prostate, had prostatectomy - no recurrence since - lesions noted in lungs -> increasing in size. He is aware of these and used to follow with Dr. Jackson - will require outpatient f/u DVT prophylaxis: contraindicated due to GI bleed, no SCD due to venous skin changes Code: Full code, no mechanical or cardioversion Disposition: remains on telemetry Resident Tracking Resident Involvement: Resident Care Provided Care Provided: Adult Hospital Medicine Reviewed: Pt Seen/Exam by Me History no rectal bleeding Constitutional: denies: fever Respiratory: negative: short of breath Cardiovascular: denies chest pain General Appearance: no apparent distress Respiratory: lungs clear, no respiratory distress Cardiovascular: regular rate, rhythm Neurologic/Psychiatric: alert, oriented x 3 Skin Characteristics: warm/dry Assessment/Plan Resident Physician Supervision Note: I independently interviewed and examined the patient and verified the gaitan history and physical, reviewed labs and image studies, discussed the case with the resident Dr. Malik and agree with the findings and care plan.
[2017-11-23] MEDS ORDERED: PERFLUTREN LIPID MICROSPHERE (DEFINITY) IV ONE (10:45)
[2017-11-23] MEDS: INSULIN 70% ASPART PROTAMINE/30% ASPART SC SCH ×2 (10:46→16:45)
--- NOTE | 2017-11-23 10:54 | Gastrointestinal Consultation ---
Gastrointestinal Consultation Date of Consultation: Nov 23, 2017 Attending Physician: Dr Candace Landeros Consulting Physician: Dr Naif Rosa Reason for Consultation: GI bleeding History of Present Illness CC black and red stools. HPI No GI notes in [facility] EMR. Pt states had prostate and radiation 2000 and developed intermittent bright red rectal bleeding about 2006. In [facility] records noted 2014 patient had R hemicolectomy post colonoscopy with hemorrhage from cecal polyp could not be controlled. Most recent colonscopy 04/[address] Thompson showed right colon 6 mm polyp hot snared path tubular adenoma, sigmoid diverticulosis, internal hemorrhoids. Pt states he is on chronic Fe but has had intermittent black tarry and bright red stools for 3- 4 years. He states he has needed intermittent blood transfusions. He is on dialysis. He states used to have blood in urine before anuric/dialysis. Over last few weeks has had sinus congestion and drainage from sinus he spits up with some red blood in it. No abd pain. Never EGD. Is on ASA. Came in to ER for SOB, CP and noted to have new afib. Also Hgb 7.1 incremented to 8 post 2 units. Baseline HGb 10.0 07/2017. Pt had one black stool yesterday and one today. Rectal in ER melena. Pt also had cough and sore throat. A/P CT showed hepatic lesions stable since 2011. Chest CT mult lung nodules worse since 2012. Pt states normally 3-4 bms daily. NO dysphagia, no wt change, no abd pain. No f/c, no N/v no liver disease. Past Medical/Surgical History Medical Problems: (1) Symptomatic anemia Status: Acute (2) Upper GI bleed Status: Acute Past Medical History: ESRD on dialysits, HTN, OR, CVA, DM Past Surgical History: s/p R colon resection Family History Patient reports no known family medical history. Brother prostate ca Social History Smoking Status: Never Smoker Marital Status: Occupation Status: retired Allergies Coded Allergies: Clarithromycin (Verified Adverse Reaction, Intermediate, confusion, 11/14/17 ) Fish Oil (Verified Adverse Reaction, Intermediate, hx of hemorrage in past , 11/14/17) Sulfa Antibiotics (Verified Adverse Reaction, Intermediate, SEVERE AGITATION/DELIRIUM, 11/14/17) Current Medications Home Meds and Scripts Medications Dose Route/Sig Max Daily Dose Days Date Category Dose Instructions Prorenal Vital (Multiple Vitamins W/ Minerals) 1 Tab Tab 1 Tab PO DAILY 11/22/17 Reported Folic Acid 1 Mg Tab 1 Mg PO DAILY 11/22/17 Reported Amlodipine Besylate 5 Mg Tab 5 Mg PO QAM 11/22/17 Reported HOLD FOR SYSTOLIC BLOOD PRESSURE LESS THAN 120 Phoslo 667 Mg (Calcium Acetate (Phosphate Bin) 667 Mg Cap 667 Mg PO UD 11/22/17 Reported TAKE TWO CAPS WITH MEALS AND 1 CAP WITH SNACKS Novolog Mix 70/30 Prefill (Insulin Aspart Protamine & Asp) 1 Inj Inj 58 Units SC QAM 11/22/17 Reported ADMINISTER BEFORE BREAKFAST Aspirin Ec (Aspirin) 81 Mg Tab 81 Mg PO 2XWK 11/22/17 Reported TAKE THIS MEDICATION EVERY SATURDAY AND SATURDAY Colace (Docusate Sodium) 100 Mg Cap 100 Mg PO BID 07/23/17 Reported Lopressor (Metoprolol Tartrate) 25 Mg Tab 50 Mg PO QAM 06/26/16 Reported Lopressor (Metoprolol Tartrate) 25 Mg Tab 25 Mg PO HS 01/17/16 Reported Pravastatin Sodium 40 Mg Tab 40 Mg PO QPM 04/20/15 Reported Novolog Mix 70/30 (Insulin Aspart Prota 70%/Aspart 30%) Susp 62 Units SC BEFORE SUPPER 04/20/15 Reported ADMINISTER BEFORE EVENING MEAL, ADJUST NEEDED Review of Systems SEE HPI. Otherwise 10 ROS negative. Physical Exam Date Time Temp Pulse Resp B/P (MAP) Pulse Ox O2 Delivery O2 Flow Rate FiO2 11/23/17 08:00 36.6 70 18 150/62 (91) 97 Room Air 11/23/17 08:00 Room Air 11/23/17 04:21 36.7 76 18 137/53 (81) 98 11/23/17 04:06 Room Air 11/23/17 01:17 36.9 80 19 173/53 97 Room Air 11/23/17 01:00 82 16 96 11/23/17 00:46 152/65 11/23/17 00:40 36.8 88 16 152/65 97 11/23/17 00:31 171/79 11/23/17 00:30 87 16 96 11/23/17 00:25 36.8 85 16 155/61 96 11/23/17 00:15 155/61 11/23/17 00:10 36.7 86 16 128/79 96 11/23/17 00:01 126/79 11/23/17 00:01 36.7 85 16 126/79 97 11/23/17 00:00 86 17 99 11/22/17 23:04 36.8 86 16 157/61 97 Room Air 11/22/17 23:00 36.8 83 16 140/68 96 11/22/17 22:26 37.2 86 16 135/55 97 11/22/17 22:04 85 97 11/22/17 22:01 132/66 11/22/17 21:57 139/70 11/22/17 21:56 37.1 87 16 139/70 97 11/22/17 21:40 37.1 95 16 114/58 97 11/22/17 21:39 114/58 11/22/17 21:04 88 22 97 11/22/17 20:34 87 21 99 11/22/17 20:33 84 11/22/17 20:04 83 23 98 11/22/17 19:34 90 16 98 11/22/17 19:12 133/61 11/22/17 19:04 84 30 99 11/22/17 18:34 80 22 100 11/22/17 18:31 80 16 135/59 99 Room Air 11/22/17 18:04 78 17 96 11/22/17 17:34 89 19 98 11/22/17 17:07 97 Room Air 11/22/17 17:06 95 Room Air 11/22/17 17:04 81 18 98 11/22/17 17:02 135/59 11/22/17 17:02 83 11/22/17 16:42 36.3 90 18 142/55 97 Room Air General Appearance: WD/WN, no apparent distress Eyes: normal inspection, PERRL ENT: normal ENT inspection, hearing grossly normal Neck: supple, trachea midline Respiratory/Chest: lungs clear, normal breath sounds, no respiratory distress Cardiovascular: no JVD, no murmur Abdomen: normal bowel sounds, non tender, soft, no organomegaly, no pulsatile mass Extremities: normal range of motion, no pedal edema Neurologic/Psych: trimmer press clippings II-XII nml as tested, normal mood/affect, oriented x 3 Skin: normal color, no jaundice Laboratory Results Last 24 Hours Test 11/22/17 18:28 11/22/17 18:29 11/23/17 05:08 11/23/17 08:10 White Blood Count 6.41 K/uL 6.11 K/uL Red Blood Count 2.29 M/uL 2.72 M/uL Hemoglobin 7.1 g/dL 8.3 g/dL 8.0 g/dL Hematocrit 22.3 % 25.9 % 24.8 % Mean Corpuscular Volume 97.4 fL 95.2 fL Mean Corpuscular Hemoglobin 31.0 pg 30.5 pg Mean Corpuscular Hemoglobin Concent 31.8 g/dl 32.0 g/dl Platelet Count 128 K/uL 114 K/uL Mean Platelet Volume 9.5 fL 9.5 fL Neutrophils (%) (Auto) 76.3 % Lymphocytes (%) (Auto) 13.9 % Monocytes (%) (Auto) 7.5 % Eosinophils (%) (Auto) 0.9 % Basophils (%) (Auto) 0.0 % Neutrophils # (Auto) 4.89 K/uL Lymphocytes # (Auto) 0.89 K/uL Monocytes # (Auto) 0.48 K/uL Eosinophils # (Auto) 0.06 K/uL Basophils # (Auto) 0.00 K/uL RDW Standard Deviation 66.8 fL 61.1 fL RDW Coefficient of Variation 20.4 % 20.1 % Immature Granulocyte % (Auto) 1.4 % Immature Granulocyte # (Auto) 0.09 K/uL Nucleated RBC Absolute Count (auto) 0.02 K/uL Nucleated Red Blood Cells % 0.3 % Polychromasia 1+ Hypochromasia PRESENT Anisocytosis PRESENT Prothrombin Time 10.3 SECONDS 10.6 SECONDS Prothromb Time International Ratio 1.0 1.0 Activated Partial Thromboplast Time 23.3 SECONDS Partial Thromboplastin Ratio 0.9 Sodium Level 136 mmol/L 137 mmol/L Potassium Level 4.9 mmol/L 4.5 mmol/L Chloride Level 99 mmol/L 101 mmol/L Carbon Dioxide Level 29 mmol/L 30 mmol/L Anion Gap 8.0 mmol/L 6.0 mmol/L Blood Urea Nitrogen 32 mg/dl 46 mg/dl Creatinine 3.92 mg/dl 4.97 mg/dl Est Creatinine Clear Calc Drug Dose 15.8 ml/min 12.7 ml/min Estimated GFR () 15.4 11.6 Estimated GFR (Non- 13.3 10.0 BUN/Creatinine Ratio 8.2 9.2 Random Glucose 169 mg/dl 118 mg/dl Calcium Level 8.8 mg/dl 8.0 mg/dl Phosphorus Level 3.1 mg/dl Magnesium Level 2.3 mg/dl Total Bilirubin 0.4 mg/dl 0.7 mg/dl Direct Bilirubin 0.1 mg/dl Aspartate Amino Transf (AST/SGOT) 14 U/L 15 U/L Alanine Aminotransferase (ALT/SGPT) 22 U/L 21 U/L Alkaline Phosphatase 54 U/L 49 U/L Troponin I 0.016 ng/ml Total Protein 7.2 gm/dl 6.5 gm/dl Albumin 3.3 gm/dl 3.0 gm/dl Lipase 183 U/L Influenza Type A Antigen Neg for Influ A Influenza Type B Antigen Neg for Influ B Globulin 3.5 gm/dl Albumin/Globulin Ratio 0.9 Thyroid Stimulating Hormone (TSH) 0.281 uIu/ml Impression Patient is a 82 year old male Plan Acute blood loss anemia--follow H and H and transfuse as needed GI bleeding--melena and rectal bleeding--unclear whether upper or lower or both. Would treat for PUD with PPI. Plan EGD/colonoscopy. Discussed with DR Landeros no brisk bleeding at present so no urgent scoping and need cardiology ok to proceed. Clear liquid diet for now so if needs emergent scope can do it without solid food in stomach. Differential for lower bleeding included polyp, diverticulosis, radiation proctitis. I did explain procedures and risks to patient which include but not limited to med reaction, bleeding, perforation, aspiraiton, and missed lesions. hx of colon polyps--will see what colo shows pulm lesions--per hospitalist but will see if any GI malignancy on EGD/ colonoscopy Other problems per hospitalist afib, ESRD, DM, HTN
--- NOTE | 2017-11-23 11:22 | Nephrology Consultation ---
Nephrology Consultation Date & Providers Date of Consultation: Nov 23, 2017. Primary Care Provider: Noel Raymundo M.D. Referring Provider: Reason for Consultation ESRD History of Present Illness Mr. Madden is an 82 year old white male who is seen at the request of Dr. Landeros to provide inpatient HD. 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 He has been on IHD since 02/26 and dialyzes at [facility] (MWF 4 hr 3K 2.5Ca F- 180NR EDW 92kg limited heparin). His medical history is also significant for prostate CA s/p prostatectomy and radiation therapy, radiation colitis w/ intermittent LGI bleeding. His last colonoscopy was ~ 4 years ago. Last week Mr. Madden complained of weakness while at the dialysis unit. Hgb was checked and found to be < 8.0. On 11/14/17 he was transfused 2 units PRBC. Since that time he has been experiencing melena. Following dialysis yesterday Mr. Madden suffered a syncopal event. He was brought to the ED for evaluation. Stool was heme positive. Hgb was 7.1. Mr. Madden has been admitted to the hospital and transfused 2 units PRBC. He has been evaluated by Gastroenterology. He will likely require EGD and colonoscopy later this weekend. 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 Hanna Allergies Coded Allergies: Clarithromycin (Verified Adverse Reaction, Intermediate, confusion, 11/14/17 ) Fish Oil (Verified Adverse Reaction, Intermediate, hx of hemorrage in past , 11/14/17) Sulfa Antibiotics (Verified Adverse Reaction, Intermediate, SEVERE AGITATION/DELIRIUM, 11/14/17) Inpatient Medications Current Inpatient Medications Medications (Trade) Dose Ordered Sig/Kelsie Route Start Time Stop Time Status Last Admin Dose Admin Al Hydrox/Mg Hydrox/Simethicone (Maalox Max Susp) 15 ml Q4H PRN PO 11/22/17 23:30 12/22/17 23:29 Magnesium Hydroxide (Milk Of Magnesia Susp) 30 ml Q12H PRN PO 11/22/17 23:30 12/22/17 23:29 Ondansetron HCl (Zofran Inj) 4 mg Q6H PRN IV 11/22/17 23:30 12/22/17 23:29 Polyethylene (Miralax Powder Packet) 17 gm DAILY PRN PO 11/22/17 23:30 12/22/17 23:29 Amlodipine Besylate (Norvasc Tab) 5 mg QAM PO 11/23/17 09:00 12/23/17 08:59 11/23/17 08:22 5 MG Calcium Acetate (Phoslo Cap) 667 mg TIDM PRN PO 11/23/17 07:30 12/23/17 07:29 Docusate Sodium (coLACE CAP) 100 mg BID PO 11/23/17 09:00 12/23/17 08:59 11/23/17 08:21 100 MG Folic Acid (Folvite Tab) 1 mg DAILY PO 11/23/17 09:00 12/23/17 08:59 11/23/17 08:22 1 MG Insulin Aspart Prota 70%/Aspart 30% (novoLOG MIX 70/ 30) 58 units QDB SC 11/23/17 07:30 12/23/17 07:29 Metoprolol Tartrate (Lopressor Tab) 25 mg HS PO 11/23/17 21:00 12/23/17 20:59 Metoprolol Tartrate (Lopressor Tab) 50 mg QAM PO 11/23/17 09:00 12/23/17 08:59 11/23/17 08:21 50 MG Multivitamins/ Minerals (Multivitamin W/ Minerals Tab) 1 tab DAILY PO 11/23/17 09:00 12/23/17 08:59 11/23/17 08:22 1 TAB Pravastatin Sodium (Pravachol Tab) 40 mg QPM PO 11/23/17 21:00 12/23/17 20:59 Insulin Aspart Prota 70%/Aspart 30% (novoLOG MIX 70/ 30) 62 units QDD SC 11/23/17 16:45 12/23/17 16:44 Insulin Aspart (novoLOG ASPART) SLIDING SCALE G... ACHS SC 11/23/17 07:00 12/23/17 06:59 Calcium Acetate (Phoslo Cap) 1,334 mg TIDM PO 11/23/17 07:30 12/23/17 07:29 Glucose (Glucose 40% Gel) 15-30 GRAMS 15 GRAMS... UD PRN PO 11/23/17 01:30 12/23/17 01:29 Glucose (Glucose Chew Tab) 4-8 Tablets 4 Tabl... UD PRN PO 11/23/17 01:30 12/23/17 01:29 Dextrose (Dextrose 50% 50ML Syringe) 25-50ML OF 50% DW IV FOR... UD PRN IV 11/23/17 01:30 12/23/17 01:29 Glucagon (Glucagon Inj) 1 mg UD PRN SQ 11/23/17 01:30 12/23/17 01:29 Metoprolol Tartrate (Lopressor Iv) 5 mg Q4 PRN IV 11/23/17 02:00 12/22/17 23:29 Pantoprazole Sodium (Protonix Tab) 40 mg BID PO 11/23/17 11:15 12/23/17 11:14 UNV Family History Patient reports no known family medical history. Negative for CKD/ESRD Social History Smoking Status: Never Smoker Smokeless Tobacco Use: No Alcohol Use: none Marital Status: Housing Status: lives with family Occupation: retired . Retired. Never a smoker Review of Systems Constitutional: No fever Respiratory: No cough, No shortness of breath Cardiovascular: No chest pain Abdomen: + problem reported (+ melena), No pain, No nausea, No vomiting Genitourinary - Male: No hematuria A complete review of systems was performed. Pertinent positives are noted above. All other systems are negative. Physical Exam Date Time Temp Pulse Resp B/P (MAP) Pulse Ox O2 Delivery O2 Flow Rate FiO2 11/23/17 08:00 36.6 70 18 150/62 (91) 97 Room Air 11/23/17 08:00 Room Air 11/23/17 04:21 36.7 76 18 137/53 (81) 98 11/23/17 04:06 Room Air 11/23/17 01:17 36.9 80 19 173/53 97 Room Air 11/23/17 01:00 82 16 96 11/23/17 00:46 152/65 11/23/17 00:40 36.8 88 16 152/65 97 11/23/17 00:31 171/79 11/23/17 00:30 87 16 96 11/23/17 00:25 36.8 85 16 155/61 96 11/23/17 00:15 155/61 11/23/17 00:10 36.7 86 16 128/79 96 11/23/17 00:01 126/79 11/23/17 00:01 36.7 85 16 126/79 97 11/23/17 00:00 86 17 99 11/22/17 23:04 36.8 86 16 157/61 97 Room Air 11/22/17 23:00 36.8 83 16 140/68 96 11/22/17 22:26 37.2 86 16 135/55 97 11/22/17 22:04 85 97 11/22/17 22:01 132/66 11/22/17 21:57 139/70 11/22/17 21:56 37.1 87 16 139/70 97 11/22/17 21:40 37.1 95 16 114/58 97 11/22/17 21:39 114/58 11/22/17 21:04 88 22 97 11/22/17 20:34 87 21 99 11/22/17 20:33 84 11/22/17 20:04 83 23 98 11/22/17 19:34 90 16 98 11/22/17 19:12 133/61 11/22/17 19:04 84 30 99 11/22/17 18:34 80 22 100 11/22/17 18:31 80 16 135/59 99 Room Air 11/22/17 18:04 78 17 96 11/22/17 17:34 89 19 98 11/22/17 17:07 97 Room Air 11/22/17 17:06 95 Room Air 11/22/17 17:04 81 18 98 11/22/17 17:02 135/59 11/22/17 17:02 83 11/22/17 16:42 36.3 90 18 142/55 97 Room Air General Appearance: no apparent distress Head: normocephalic, atraumatic Eyes: PERRL Neck: no adenopathy Respiratory/Chest: lungs clear, no respiratory distress Cardiovascular: regular rate, rhythm Abdomen/GI: normal bowel sounds, non tender, soft Extremities/Musculoskelatal: no pedal edema Neurologic/Psych: alert, oriented x 3 Laboratory Results Last 24 Hours Test 11/22/17 18:28 11/22/17 18:29 11/23/17 05:08 11/23/17 08:10 White Blood Count 6.41 K/uL 6.11 K/uL Red Blood Count 2.29 M/uL 2.72 M/uL Hemoglobin 7.1 g/dL 8.3 g/dL 8.0 g/dL Hematocrit 22.3 % 25.9 % 24.8 % Mean Corpuscular Volume 97.4 fL 95.2 fL Mean Corpuscular Hemoglobin 31.0 pg 30.5 pg Mean Corpuscular Hemoglobin Concent 31.8 g/dl 32.0 g/dl Platelet Count 128 K/uL 114 K/uL Mean Platelet Volume 9.5 fL 9.5 fL Neutrophils (%) (Auto) 76.3 % Lymphocytes (%) (Auto) 13.9 % Monocytes (%) (Auto) 7.5 % Eosinophils (%) (Auto) 0.9 % Basophils (%) (Auto) 0.0 % Neutrophils # (Auto) 4.89 K/uL Lymphocytes # (Auto) 0.89 K/uL Monocytes # (Auto) 0.48 K/uL Eosinophils # (Auto) 0.06 K/uL Basophils # (Auto) 0.00 K/uL RDW Standard Deviation 66.8 fL 61.1 fL RDW Coefficient of Variation 20.4 % 20.1 % Immature Granulocyte % (Auto) 1.4 % Immature Granulocyte # (Auto) 0.09 K/uL Nucleated RBC Absolute Count (auto) 0.02 K/uL Nucleated Red Blood Cells % 0.3 % Polychromasia 1+ Hypochromasia PRESENT Anisocytosis PRESENT Prothrombin Time 10.3 SECONDS 10.6 SECONDS Prothromb Time International Ratio 1.0 1.0 Activated Partial Thromboplast Time 23.3 SECONDS Partial Thromboplastin Ratio 0.9 Sodium Level 136 mmol/L 137 mmol/L Potassium Level 4.9 mmol/L 4.5 mmol/L Chloride Level 99 mmol/L 101 mmol/L Carbon Dioxide Level 29 mmol/L 30 mmol/L Anion Gap 8.0 mmol/L 6.0 mmol/L Blood Urea Nitrogen 32 mg/dl 46 mg/dl Creatinine 3.92 mg/dl 4.97 mg/dl Est Creatinine Clear Calc Drug Dose 15.8 ml/min 12.7 ml/min Estimated GFR () 15.4 11.6 Estimated GFR (Non- 13.3 10.0 BUN/Creatinine Ratio 8.2 9.2 Random Glucose 169 mg/dl 118 mg/dl Calcium Level 8.8 mg/dl 8.0 mg/dl Phosphorus Level 3.1 mg/dl Magnesium Level 2.3 mg/dl Total Bilirubin 0.4 mg/dl 0.7 mg/dl Direct Bilirubin 0.1 mg/dl Aspartate Amino Transf (AST/SGOT) 14 U/L 15 U/L Alanine Aminotransferase (ALT/SGPT) 22 U/L 21 U/L Alkaline Phosphatase 54 U/L 49 U/L Troponin I 0.016 ng/ml Total Protein 7.2 gm/dl 6.5 gm/dl Albumin 3.3 gm/dl 3.0 gm/dl Lipase 183 U/L Influenza Type A Antigen Neg for Influ A Influenza Type B Antigen Neg for Influ B Globulin 3.5 gm/dl Albumin/Globulin Ratio 0.9 Thyroid Stimulating Hormone (TSH) 0.281 uIu/ml Impression (1) Symptomatic anemia (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 No acute indication for HD today -- Monitor PRP -- Protect L arm AVF ANEMIA: -- Recommend transfusion to maintain Hgb > 8.0 -- GI consultation reviewed. In light of recurrent anemia agree w/ follow up EGD / colonoscopy -- On PPI therapy
[2017-11-23 12:28] LABS: HEMOGLOBIN 8.5 g/dL (14.0-18.0)
[2017-11-23] MEDS: PANTOprazole SOD 40 MG TAB PO SCH ×2 (12:29→20:59)
--- NOTE | 2017-11-23 15:56 | ECHOCARDIOGRAM REPORT ---
*NOTICE TO RECEIVING [employer] This information is strictly Confidential and protected under [place] law. [place] law prohibits you from making any further disclosure of this information unless further disclosure is expressly permitted by the written consent of the person to whom it pertains or is authorized by law. A general authorization for the release of medical or other information is not sufficient for this purpose. Hospital accepts no responsibility if the information is made available to any other person, INCLUDING THE PATIENT. Interpretation Summary * Name: MARY ANN DENNIS Study Date: 11/23/2017 10:16 AM BP: 137/53 mmHg * Patient Location: C.2T\S\S229\S\2 HR: 76 * : 1935 (M/d/yyy) Gender: Male Height: 68 in * Age: 82 yrs Ethnicity: CA Weight: 204 lb * Ordering Physician: Ronald Eng * Referring Physician: Self, Referred * Performed By: Trudi Rayo RDCS * * Reason For Study: A-fib * BSA: 2.1 m2 * -- Conclusions -- * Left ventricular systolic function is normal. * No regional wall motion abnormalities noted. * Ejection Fraction = 60-65%. * There is mild concentric left ventricular hypertrophy. * Diastolic dysfunction, Grade II (pseudonormalization pattern). * No significant valvular pathology. Procedure Details * A complete two-dimensional transthoracic echocardiogram was performed (2D, M-mode, Doppler and color flow Doppler). * A contrast injection of Definity was performed to improve assessment of LV function. * Contrast was injected into an intravenous site in the left arm. * One vial of Definity ultrasound contrast was diluted in normal saline to a total volume of 10 ml. A total of '2' ml of solution was administered during imaging. * Lot # [id number] of Definity utilized for procedure. * Expiration date DEC 02. * The attending nurse who injected the contrast agent was Jessika Garcia RN. Left Ventricle * The left ventricle is normal in size. * There is mild concentric left ventricular hypertrophy. * Ejection Fraction = 60-65%. * Left ventricular systolic function is normal. * No regional wall motion abnormalities noted. Right Ventricle * The right ventricle is normal size. * The right ventricular systolic function is normal as assessed by tricuspid annular plane systolic excursion (TAPSE) (normal >1.5 cm). Atria * The left atrium is mildly dilated. * Right atrial size is normal. * No ASD detected; PFO is not assessed. Mitral Valve * The mitral valve is grossly normal. * There is no mitral valve stenosis. * Significant mitral regurgitation is absent. Tricuspid Valve * The tricuspid valve is not well visualized, but is grossly normal. * There is no tricuspid stenosis. * Significant tricuspid regurgitation is absent. Aortic Valve * The aortic valve is trileaflet. * The aortic valve opens well. * Aortic valve sclerosis moderate, without significant aortic valvular stenosis. * There is no significant aortic regurgitation. Pulmonic Valve * The pulmonary valve is not well seen, but the Doppler examination is normal without significant regurgitation or stenosis. Great Vessels * The aortic root is normal size. * The pulmonary is not well visualized. Pericardium/Pleural * There is no pericardial effusion. Great Vessels * Inferior vena cava not well visualized. Left Ventricular Diastolic Function * Diastolic dysfunction, Grade II (pseudonormalization pattern). MMode 2D Measurements and Calculations IVSd 1.2 cm LVIDd 3.7 cm LVIDs 2.6 cm LVPWd 1.3 cm IVS/LVPW 0.91 FS 31.1 % EDV(Teich) 58.6 ml ESV(Teich) 23.6 ml EF(Teich) 59.7 % EDV(cubed) 51.2 ml ESV(cubed) 16.7 ml EF(cubed) 67.3 % LV mass(C)d 156.3 grams LV mass(C)dI 75.8 grams/m\S\2 SV(Teich) 35.0 ml SI(Teich) 17.0 ml/m\S\2 SV(cubed) 34.5 ml SI(cubed) 16.7 ml/m\S\2 Ao root diam 2.9 cm Ao root area 6.6 cm\S\2 ACS 1.5 cm LA dimension 3.3 cm asc Aorta Diam 2.6 cm LA/Ao 1.2 LVOT diam 2.0 cm LVOT area 3.1 cm\S\2 LVAd ap4 36.7 cm\S\2 LVLd ap4 9.6 cm EDV(MOD-sp4) 112.7 ml EDV(sp4-el) 119.3 ml LVAs ap4 21.0 cm\S\2 LVLs ap4 8.3 cm ESV(MOD-sp4) 44.7 ml ESV(sp4-el) 45.3 ml EF(MOD-sp4) 60.3 % EF(sp4-el) 62.0 % LVAd ap2 41.5 cm\S\2 LVLd ap2 9.9 cm EDV(MOD-sp2) 144.1 ml EDV(sp2-el) 148.0 ml LVAs ap2 21.7 cm\S\2 LVLs ap2 7.9 cm ESV(MOD-sp2) 50.3 ml ESV(sp2-el) 50.2 ml EF(MOD-sp2) 65.1 % EF(sp2-el) 66.1 % LVLd %diff 3.3 % EDV(MOD-bp) 127.5 ml LVLs %diff -4.28 % ESV(MOD-bp) 48.2 ml EF(MOD-bp) 62.2 % SV(MOD-sp4) 68.0 ml SI(MOD-sp4) 33.0 ml/m\S\2 SV(MOD-sp2) 93.8 ml SI(MOD-sp2) 45.5 ml/m\S\2 SV(MOD-bp) 79.3 ml SI(MOD-bp) 38.5 ml/m\S\2 SV(sp4-el) 74.0 ml SI(sp4-el) 35.9 ml/m\S\2 SV(sp2-el) 97.8 ml SI(sp2-el) 47.4 ml/m\S\2 Doppler Measurements and Calculations MV E max danni 132.4 cm/sec MV A max danni 116.4 cm/sec MV E/A 1.1 MV dec time 0.22 sec Ao V2 max 143.9 cm/sec Ao max PG 8.3 mmHg Ao max PG (full) 2.0 mmHg LES(V,A) 2.7 cm\S\2 LES(V,D) 2.7 cm\S\2 AI max danni 260.6 cm/sec AI max PG 27.2 mmHg AI dec slope 115.0 cm/sec\S\2 AI P1/2t 663.9 msec LV V1 max PG 6.3 mmHg LV V1 max 125.6 cm/sec PA V2 max 105.9 cm/sec PA max PG 4.5 mmHg PA acc slope 444.6 cm/sec\S\2 PA acc time 0.15 sec TR max danni 279.6 cm/sec PA pr(Accel) 9.3 mmHg
[2017-11-23 16:43] LABS: HEMATOCRIT 24.9 % (42-52)
[2017-11-23] MEDS: PRAVASTATIN SOD 40 MG TAB PO SCH (20:59)
[2017-11-24 00:50] LABS: HEMATOCRIT 23.5 % (42-52); HEMOGLOBIN 7.6 g/dL (14.0-18.0)
[2017-11-24 04:13] VITALS: BP 145/55; PULSE 66; TEMP 36.6; O2SAT 95
[2017-11-24 05:45] LABS: EOS % 3.9 %; EOS ABS # 0.22 K/uL (0-0.5); HEMATOCRIT 24.7 % (42-52); HEMOGLOBIN 7.9 g/dL (14.0-18.0); IG# 0.03 K/uL (0.00-0.02); LYMPH % 30.4 %; LYMPH ABS # 1.71 K/uL (1.2-3.4); MEAN CELL VOLUME 95.7 fL (80-100); MEAN CORPUSCULAR HEMOGLOBIN 30.6 pg (25-34); MEAN PLATELET VOLUME 9.3 fL (7.4-10.4); MONO % 8.5 %; MONO ABS # 0.48 K/uL (0.11-0.59); NEUT % 56.7 %; NEUT ABS # 3.19 K/uL (1.4-6.5); PLATELET COUNT 119 K/uL (130-400); RED CELL DISTRIBUTION WIDTH CV 20.2 % (11.5-14.5); RED CELL DISTRIBUTION WIDTH SD 67.2 fL (36.4-46.3); WHITE BLOOD COUNT 5.63 K/uL (4.8-10.8)
[2017-11-24 06:34] LABS: ALBUMIN 2.8 gm/dl (3.4-5.0); CREATININE 6.44 mg/dl (0.60-1.40); POTASSIUM 4.6 mmol/L (3.5-5.1); TOTAL PROTEIN 6.2 gm/dl (6.4-8.2)
[2017-11-24 07:20] VITALS: BP 135/53; PULSE 72; TEMP 36.7; O2SAT 97
[2017-11-24] MEDS: INSULIN 70% ASPART PROTAMINE/30% ASPART SC SCH ×2 (08:38→17:26)
[2017-11-24] MEDS: INSULIN ASPART 100 UNITS/ML 3 ML PEN SC SCH ×4 (08:38→21:00)
[2017-11-24] MEDS: CALCIUM ACETATE 667MG GELCAP PO SCH ×3 (08:39→16:02)
[2017-11-24] MEDS: PANTOprazole SOD 40 MG TAB PO SCH ×2 (08:39→21:17)
[2017-11-24] MEDS: METOPROLOL TARTRATE 25 MG TAB PO SCH ×2 (08:40→21:17)
[2017-11-24] MEDS: AMLODIPINE BESYLATE 5 MG TAB PO SCH (08:40)
[2017-11-24] MEDS: CEROVITE ADV FORMULA TAB PO SCH (08:40)
[2017-11-24] MEDS: DOCUSATE SODIUM 100 MG CAP PO SCH ×2 (08:40→21:00)
--- NOTE | 2017-11-24 10:19 | Family Medicine Progress Note ---
Progress Note Date of Service Nov 24, 2017. Subjective Pt evaluation today including: conversation w/ patient, physical exam, chart review, lab review, review of inpatient medication list Pain: No pain reported PO Intake: Tolerating liquid diet Voiding: no voiding problems, incontinence Mr. Madden reports he feels well today. He denies chest pain, n/v, shortness of breath, dizziness or pre-syncopal episodes. He states he has been in bed mostly and would like to try and sit up in a chair and see if he is able to tolerate this. Constitutional: No fever, No chills Respiratory: No cough, No shortness of breath Cardiovascular: No chest pain, No edema Abdomen: + GI bleeding, No pain, No nausea, No vomiting All Other Systems: Reviewed and Negative Medications Current Inpatient Medications Medications (Trade) Dose Ordered Sig/Kelsie Route Start Time Stop Time Status Last Admin Dose Admin Al Hydrox/Mg Hydrox/Simethicone (Maalox Max Susp) 15 ml Q4H PRN PO 11/22/17 23:30 12/22/17 23:29 Magnesium Hydroxide (Milk Of Magnesia Susp) 30 ml Q12H PRN PO 11/22/17 23:30 12/22/17 23:29 Ondansetron HCl (Zofran Inj) 4 mg Q6H PRN IV 11/22/17 23:30 12/22/17 23:29 Polyethylene (Miralax Powder Packet) 17 gm DAILY PRN PO 11/22/17 23:30 12/22/17 23:29 Amlodipine Besylate (Norvasc Tab) 5 mg QAM PO 11/23/17 09:00 12/23/17 08:59 11/24/17 08:40 5 MG Calcium Acetate (Phoslo Cap) 667 mg TIDM PRN PO 11/23/17 07:30 12/23/17 07:29 Docusate Sodium (coLACE CAP) 100 mg BID PO 11/23/17 09:00 12/23/17 08:59 11/24/17 08:40 100 MG Folic Acid (Folvite Tab) 1 mg DAILY PO 11/23/17 09:00 12/23/17 08:59 11/24/17 08:41 1 MG Insulin Aspart Prota 70%/Aspart 30% (novoLOG MIX 70/ 30) 58 units QDB SC 11/23/17 07:30 12/23/17 07:29 Metoprolol Tartrate (Lopressor Tab) 25 mg HS PO 11/23/17 21:00 12/23/17 20:59 11/23/17 20:59 25 MG Metoprolol Tartrate (Lopressor Tab) 50 mg QAM PO 11/23/17 09:00 12/23/17 08:59 11/24/17 08:40 50 MG Multivitamins/ Minerals (Multivitamin W/ Minerals Tab) 1 tab DAILY PO 11/23/17 09:00 12/23/17 08:59 11/24/17 08:40 1 TAB Pravastatin Sodium (Pravachol Tab) 40 mg QPM PO 11/23/17 21:00 12/23/17 20:59 11/23/17 20:59 40 MG Insulin Aspart Prota 70%/Aspart 30% (novoLOG MIX 70/ 30) 62 units QDD SC 11/23/17 16:45 12/23/17 16:44 Insulin Aspart (novoLOG ASPART) SLIDING SCALE G... ACHS SC 11/23/17 07:00 12/23/17 06:59 11/23/17 17:31 4 UNITS Calcium Acetate (Phoslo Cap) 1,334 mg TIDM PO 11/23/17 07:30 12/23/17 07:29 11/24/17 08:39 1,334 MG Glucose (Glucose 40% Gel) 15-30 GRAMS 15 GRAMS... UD PRN PO 11/23/17 01:30 12/23/17 01:29 Glucose (Glucose Chew Tab) 4-8 Tablets 4 Tabl... UD PRN PO 11/23/17 01:30 12/23/17 01:29 Dextrose (Dextrose 50% 50ML Syringe) 25-50ML OF 50% DW IV FOR... UD PRN IV 11/23/17 01:30 12/23/17 01:29 Glucagon (Glucagon Inj) 1 mg UD PRN SQ 11/23/17 01:30 12/23/17 01:29 Metoprolol Tartrate (Lopressor Iv) 5 mg Q4 PRN IV 11/23/17 02:00 12/22/17 23:29 Pantoprazole Sodium (Protonix Tab) 40 mg BID PO 11/23/17 11:30 12/23/17 11:29 11/24/17 08:39 40 MG Objective Vital Signs Date Time Temp Pulse Resp B/P (MAP) Pulse Ox O2 Delivery O2 Flow Rate FiO2 11/24/17 08:00 Room Air 11/24/17 07:20 36.7 72 18 135/53 (80) 97 Room Air 11/24/17 04:13 36.6 66 18 145/55 (85) 95 Room Air 11/24/17 04:00 Room Air 11/24/17 00:01 Room Air 11/23/17 23:27 36.9 69 18 138/57 (84) 96 Room Air 11/23/17 20:30 67 147/66 (93) 11/23/17 20:00 94 Room Air 11/23/17 19:32 36.7 71 16 130/63 (85) 98 11/23/17 15:35 94 Room Air 11/23/17 15:11 36.5 68 18 125/65 (85) 96 Room Air 11/23/17 12:00 Room Air 11/23/17 11:34 36.9 69 18 146/66 (92) 98 Room Air Physical Exam General Appearance: WD/WN, no apparent distress Respiratory/Chest: lungs clear, normal breath sounds Cardiovascular: regular rate, rhythm, no edema, no gallop Abdomen: non tender, soft Extremities: no pedal edema, no calf tenderness Laboratory Results Last 24 Hours Test 11/23/17 11:15 11/23/17 12:11 11/23/17 16:15 11/23/17 16:21 Bedside Glucose 190 mg/dl 139 mg/dl Hemoglobin 8.5 g/dL 8.0 g/dL Hematocrit 26.0 % 24.9 % Test 11/23/17 20:15 11/24/17 00:27 11/24/17 05:14 11/24/17 06:50 Bedside Glucose 126 mg/dl 144 mg/dl Hemoglobin 7.6 g/dL 7.9 g/dL Hematocrit 23.5 % 24.7 % White Blood Count 5.63 K/uL Red Blood Count 2.58 M/uL Mean Corpuscular Volume 95.7 fL Mean Corpuscular Hemoglobin 30.6 pg Mean Corpuscular Hemoglobin Concent 32.0 g/dl Platelet Count 119 K/uL Mean Platelet Volume 9.3 fL Neutrophils (%) (Auto) 56.7 % Lymphocytes (%) (Auto) 30.4 % Monocytes (%) (Auto) 8.5 % Eosinophils (%) (Auto) 3.9 % Basophils (%) (Auto) 0.0 % Neutrophils # (Auto) 3.19 K/uL Lymphocytes # (Auto) 1.71 K/uL Monocytes # (Auto) 0.48 K/uL Eosinophils # (Auto) 0.22 K/uL Basophils # (Auto) 0.00 K/uL RDW Standard Deviation 67.2 fL RDW Coefficient of Variation 20.2 % Immature Granulocyte % (Auto) 0.5 % Immature Granulocyte # (Auto) 0.03 K/uL Polychromasia 1+ Anisocytosis PRESENT Sodium Level 134 mmol/L Potassium Level 4.6 mmol/L Chloride Level 100 mmol/L Carbon Dioxide Level 26 mmol/L Anion Gap 8.0 mmol/L Blood Urea Nitrogen 65 mg/dl Creatinine 6.44 mg/dl Est Creatinine Clear Calc Drug Dose 9.8 ml/min Estimated GFR () 8.4 Estimated GFR (Non- 7.3 BUN/Creatinine Ratio 10.2 Random Glucose 124 mg/dl Calcium Level 8.0 mg/dl Iron Level 42 mcg/dl Total Iron Binding Capacity 251 mcg/dl Ferritin 361.4 ng/ml Total Bilirubin 0.5 mg/dl Aspartate Amino Transf (AST/SGOT) 16 U/L Alanine Aminotransferase (ALT/SGPT) 21 U/L Alkaline Phosphatase 47 U/L Total Protein 6.2 gm/dl Albumin 2.8 gm/dl Globulin 3.4 gm/dl Albumin/Globulin Ratio 0.8 Assessment and Plan Mr. 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 Was found to have a hgb of 7.1 and has been having dark stools. Anemia secondary to GI bleed - patient was told in 2014 that GI bleeding was secondary to prostate radiation (radiation proctitis?) - he has been having chronic GI bleeding for over 5 years - usually occurs episodically and lasts a couple of days - he states this episode has lasted 2 weeks and he has dark stools as well as blood in his stool - was transfused 2 units on admission - Hgb has been holding steady at between 7.6 - 8.5 over the last 24 hours. Currently feeling well although if his Hgb drops any further or he experiences weakness/fatigue, will transfuse - follow H&H q8h and transfuse as needed - GI consulted - - unclear whether upper or lower GI bleeding or both - continue PPI ( pantoprazole 40mg BID) and will plan EGD/colonoscopy tomorrow - continue clear liquid diet in case urgent scope needed - pt is a 4 (11% risk of adverse cardiac event) on revised cardiac risk index for pre-operative clearance. He is high risk for a low risk procedure. EKG Changes - initial EKG read was atrial fibrillation, however patient was never in atrial fibrillation, but rather sinus rhythm w/PACs - continue to monitor ESRD with dialysis - Dialysis on Sat, Sat and - creatinine 6.44, increased from 4.97 yesterday - monitor I/O's - thank you to nephro for consult - volume status and electrolyte balance acceptable - no need for urgent HD, will resume HD as per schedule tomorrow - monitor BMP - hold home meds DM2 - last Hba1c was 5.6 in August - continue home regimen of 70/30 insulin - continue ISS - check blood sugars bc HTN - continue home metoprolol and amlodipine HLD - continue statin Hx of prostate CA - local to prostate, had prostatectomy - no recurrence since - lesions noted in lungs -> increasing in size. He is aware of these and used to follow with Dr. Jackson - will require outpatient f/u DVT prophylaxis: contraindicated due to GI bleed, no SCD due to venous skin changes Code: Full code, no mechanical or cardioversion Disposition: remains on telemetry Resident Tracking Resident Involvement: Resident Care Provided Care Provided: Adult Hospital Medicine Reviewed: Pt Seen/Exam by Me History no bleeding Constitutional: denies: fever Respiratory: negative: short of breath Cardiovascular: denies chest pain General Appearance: no apparent distress Respiratory: lungs clear, no respiratory distress Cardiovascular: regular rate, rhythm Gastrointestinal: soft Neurologic/Psychiatric: alert, oriented x 3 Skin Characteristics: warm/dry Assessment/Plan Resident Physician Supervision Note: I independently interviewed and examined the patient and verified the gaitan history and physical, reviewed labs and image studies, discussed the case with the resident Dr. Tarmohamed and agree with the findings and care plan.
--- NOTE | 2017-11-24 10:57 | Nephrology Progress Note ---
Nephrology Progress Note Date of Service Nov 24, 2017. Chief Complaint ESRD Subjective Mr. Madden was seen & examined in the PCU this morning. He continues to experience melena but denies fever, dyspnea, angina or abdominal pain. He notes that he is on a clear liquid diet in case endoscopy becomes necessary. Review of Systems Constitutional: No fever Cardiovascular: No chest pain Respiratory: No dyspnea at rest Abdomen: No pain, No nausea, No vomiting Extremities: No leg edema A complete review of systems was performed. Pertinent positives are noted above. All other systems are negative. Vital Signs Last 8 Hrs Date Time Temp Pulse Resp B/P (MAP) Pulse Ox O2 Delivery O2 Flow Rate FiO2 11/24/17 08:00 Room Air 11/24/17 07:20 36.7 72 18 135/53 (80) 97 Room Air 11/24/17 04:13 36.6 66 18 145/55 (85) 95 Room Air 11/24/17 04:00 Room Air Last Recorded Weight Weight (Kilograms): 93.300 Physical Exam General Appearance: no apparent distress Head: normocephalic, atraumatic Eyes: PERRL, EOMI Neck: no adenopathy Respiratory/Chest: lungs clear, no respiratory distress Cardiovascular: regular rate, rhythm Abdomen/GI: normal bowel sounds, non tender, soft Extremities/Musculoskelatal: no calf tenderness, no pedal edema Neurologic/Psych: alert, oriented x 3 Family History Patient reports no known family medical history. Negative for CKD/ESRD Social History Smokeless Tobacco Use: No Alcohol Use: none Marital Status: Housing Status: lives with family Occupation: retired . Retired. Never a smoker Laboratory Results Past 24 Hours 11/23/17 12:11 11/23/17 16:21 11/24/17 00:27 11/24/17 05:14 Red Blood Count 2.58, Mean Corpuscular Volume 95.7, Mean Corpuscular Hemoglobin 30.6, Mean Corpuscular Hemoglobin Concent 32.0, Mean Platelet Volume 9.3, Neutrophils (%) (Auto) 56.7, Lymphocytes (%) (Auto) 30.4, Monocytes (%) (Auto) 8.5, Eosinophils (%) (Auto) 3.9, Basophils (%) (Auto) 0.0, Neutrophils # (Auto) 3.19, Lymphocytes # (Auto) 1.71, Monocytes # (Auto) 0.48, Eosinophils # (Auto) 0.22, Basophils # (Auto) 0.00 11/24/17 05:14 Test 11/23/17 11:15 11/23/17 16:15 11/23/17 20:15 11/24/17 05:14 Bedside Glucose 190 mg/dl (70-99) 139 mg/dl (70-99) 126 mg/dl (70-99) White Blood Count 5.63 K/uL (4.8-10.8) Red Blood Count 2.58 M/uL (4.7-6.1) Hemoglobin 7.9 g/dL (14.0-18.0) Hematocrit 24.7 % (42-52) Mean Corpuscular Volume 95.7 fL (80-100) Mean Corpuscular Hemoglobin 30.6 pg (25-34) Mean Corpuscular Hemoglobin Concent 32.0 g/dl (32-36) Platelet Count 119 K/uL (130-400) Mean Platelet Volume 9.3 fL (7.4-10.4) Neutrophils (%) (Auto) 56.7 % Lymphocytes (%) (Auto) 30.4 % Monocytes (%) (Auto) 8.5 % Eosinophils (%) (Auto) 3.9 % Basophils (%) (Auto) 0.0 % Neutrophils # (Auto) 3.19 K/uL (1.4-6.5) Lymphocytes # (Auto) 1.71 K/uL (1.2-3.4) Monocytes # (Auto) 0.48 K/uL (0.11-0.59) Eosinophils # (Auto) 0.22 K/uL (0-0.5) Basophils # (Auto) 0.00 K/uL (0-0.2) RDW Standard Deviation 67.2 fL (36.4-46.3) RDW Coefficient of Variation 20.2 % (11.5-14.5) Immature Granulocyte % (Auto) 0.5 % Immature Granulocyte # (Auto) 0.03 K/uL (0.00-0.02) Polychromasia 1+ Anisocytosis PRESENT Anion Gap 8.0 mmol/L (3-11) Est Creatinine Clear Calc Drug Dose 9.8 ml/min Estimated GFR () 8.4 Estimated GFR (Non- 7.3 BUN/Creatinine Ratio 10.2 (10-20) Calcium Level 8.0 mg/dl (8.5-10.1) Iron Level 42 mcg/dl (35-175) Total Iron Binding Capacity 251 mcg/dl (250-450) Ferritin 361.4 ng/ml (8.0-388.0) Total Bilirubin 0.5 mg/dl (0.2-1) Aspartate Amino Transf (AST/SGOT) 16 U/L (15-37) Alanine Aminotransferase (ALT/SGPT) 21 U/L (12-78) Alkaline Phosphatase 47 U/L (45-117) Total Protein 6.2 gm/dl (6.4-8.2) Albumin 2.8 gm/dl (3.4-5.0) Globulin 3.4 gm/dl (2.5-4.0) Albumin/Globulin Ratio 0.8 (0.9-2) Test 11/24/17 06:50 Bedside Glucose 144 mg/dl (70-99) Allergies Coded Allergies: Clarithromycin (Verified Adverse Reaction, Intermediate, confusion, 11/14/17 ) Fish Oil (Verified Adverse Reaction, Intermediate, hx of hemorrage in past , 11/14/17) Sulfa Antibiotics (Verified Adverse Reaction, Intermediate, SEVERE AGITATION/DELIRIUM, 11/14/17) Medications Current Inpatient Medications Medications (Trade) Dose Ordered Sig/Kelsie Route Start Time Stop Time Status Last Admin Dose Admin Al Hydrox/Mg Hydrox/Simethicone (Maalox Max Susp) 15 ml Q4H PRN PO 11/22/17 23:30 12/22/17 23:29 Magnesium Hydroxide (Milk Of Magnesia Susp) 30 ml Q12H PRN PO 11/22/17 23:30 12/22/17 23:29 Ondansetron HCl (Zofran Inj) 4 mg Q6H PRN IV 11/22/17 23:30 12/22/17 23:29 Polyethylene (Miralax Powder Packet) 17 gm DAILY PRN PO 11/22/17 23:30 12/22/17 23:29 Amlodipine Besylate (Norvasc Tab) 5 mg QAM PO 11/23/17 09:00 12/23/17 08:59 11/24/17 08:40 5 MG Calcium Acetate (Phoslo Cap) 667 mg TIDM PRN PO 11/23/17 07:30 12/23/17 07:29 Docusate Sodium (coLACE CAP) 100 mg BID PO 11/23/17 09:00 12/23/17 08:59 11/24/17 08:40 100 MG Folic Acid (Folvite Tab) 1 mg DAILY PO 11/23/17 09:00 12/23/17 08:59 11/24/17 08:41 1 MG Insulin Aspart Prota 70%/Aspart 30% (novoLOG MIX 70/ 30) 58 units QDB SC 11/23/17 07:30 12/23/17 07:29 Metoprolol Tartrate (Lopressor Tab) 25 mg HS PO 11/23/17 21:00 12/23/17 20:59 11/23/17 20:59 25 MG Metoprolol Tartrate (Lopressor Tab) 50 mg QAM PO 11/23/17 09:00 12/23/17 08:59 11/24/17 08:40 50 MG Multivitamins/ Minerals (Multivitamin W/ Minerals Tab) 1 tab DAILY PO 11/23/17 09:00 12/23/17 08:59 11/24/17 08:40 1 TAB Pravastatin Sodium (Pravachol Tab) 40 mg QPM PO 11/23/17 21:00 12/23/17 20:59 11/23/17 20:59 40 MG Insulin Aspart Prota 70%/Aspart 30% (novoLOG MIX 70/ 30) 62 units QDD SC 11/23/17 16:45 12/23/17 16:44 Insulin Aspart (novoLOG ASPART) SLIDING SCALE G... ACHS SC 11/23/17 07:00 12/23/17 06:59 11/23/17 17:31 4 UNITS Calcium Acetate (Phoslo Cap) 1,334 mg TIDM PO 11/23/17 07:30 12/23/17 07:29 11/24/17 08:39 1,334 MG Glucose (Glucose 40% Gel) 15-30 GRAMS 15 GRAMS... UD PRN PO 11/23/17 01:30 12/23/17 01:29 Glucose (Glucose Chew Tab) 4-8 Tablets 4 Tabl... UD PRN PO 11/23/17 01:30 12/23/17 01:29 Dextrose (Dextrose 50% 50ML Syringe) 25-50ML OF 50% DW IV FOR... 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 No acute indication for HD today. Will schedule next HD for tomorrow and ask staff radiation therapist to coordinate schedule w/ endoscopy. HD has been ordered to be heparin free. -- Monitor PRP -- Protect L arm AVF ANEMIA: -- Recommend transfusion to maintain Hgb > 8.0 -- Agree w/ plans for EGD / Colonoscopy. Awaiting further input from GI -- On PPI therapy
[2017-11-24 11:18] VITALS: BP 129/48; PULSE 59; TEMP 36.5; O2SAT 99
[2017-11-24 14:28] LABS: HEMATOCRIT 25.3 % (42-52); HEMOGLOBIN 8.2 g/dL (14.0-18.0)
--- NOTE | 2017-11-24 15:30 | Gastroenterology Progress Note ---
Progress Note Date of Service: Nov 24, 2017 Subjective Pt evaluation today including: conversation w/ patient, conversation w/ family (sister in law), physical exam, chart review, lab review, review of studies, review of inpatient medication list CC f/u melena, BRBPR. HPI Pt states had stool today again dark. No red in it. He denies abd pain. Tolerating clear liquid diet. Hgb stable. Review of Systems Respiratory: No shortness of breath Cardiac: No chest pain Medications Current Inpatient Medications Medications (Trade) Dose Ordered Sig/Kelsie Route Start Time Stop Time Status Last Admin Dose Admin Al Hydrox/Mg Hydrox/Simethicone (Maalox Max Susp) 15 ml Q4H PRN PO 11/22/17 23:30 12/22/17 23:29 Magnesium Hydroxide (Milk Of Magnesia Susp) 30 ml Q12H PRN PO 11/22/17 23:30 12/22/17 23:29 Ondansetron HCl (Zofran Inj) 4 mg Q6H PRN IV 11/22/17 23:30 12/22/17 23:29 Polyethylene (Miralax Powder Packet) 17 gm DAILY PRN PO 11/22/17 23:30 12/22/17 23:29 Amlodipine Besylate (Norvasc Tab) 5 mg QAM PO 11/23/17 09:00 12/23/17 08:59 11/24/17 08:40 5 MG Calcium Acetate (Phoslo Cap) 667 mg TIDM PRN PO 11/23/17 07:30 12/23/17 07:29 Docusate Sodium (coLACE CAP) 100 mg BID PO 11/23/17 09:00 12/23/17 08:59 11/24/17 08:40 100 MG Folic Acid (Folvite Tab) 1 mg DAILY PO 11/23/17 09:00 12/23/17 08:59 11/24/17 08:41 1 MG Insulin Aspart Prota 70%/Aspart 30% (novoLOG MIX 70/ 30) 58 units QDB SC 11/23/17 07:30 12/23/17 07:29 Metoprolol Tartrate (Lopressor Tab) 25 mg HS PO 11/23/17 21:00 12/23/17 20:59 11/23/17 20:59 25 MG Metoprolol Tartrate (Lopressor Tab) 50 mg QAM PO 11/23/17 09:00 12/23/17 08:59 11/24/17 08:40 50 MG Multivitamins/ Minerals (Multivitamin W/ Minerals Tab) 1 tab DAILY PO 11/23/17 09:00 12/23/17 08:59 11/24/17 08:40 1 TAB Pravastatin Sodium (Pravachol Tab) 40 mg QPM PO 11/23/17 21:00 12/23/17 20:59 11/23/17 20:59 40 MG Insulin Aspart Prota 70%/Aspart 30% (novoLOG MIX 70/ 30) 62 units QDD SC 11/23/17 16:45 12/23/17 16:44 Insulin Aspart (novoLOG ASPART) SLIDING SCALE G... ACHS SC 11/23/17 07:00 12/23/17 06:59 11/24/17 12:02 4 UNITS Calcium Acetate (Phoslo Cap) 1,334 mg TIDM PO 11/23/17 07:30 12/23/17 07:29 11/24/17 11:59 1,334 MG Glucose (Glucose 40% Gel) 15-30 GRAMS 15 GRAMS... UD PRN PO 11/23/17 01:30 12/23/17 01:29 Glucose (Glucose Chew Tab) 4-8 Tablets 4 Tabl... UD PRN PO 11/23/17 01:30 12/23/17 01:29 Dextrose (Dextrose 50% 50ML Syringe) 25-50ML OF 50% DW IV FOR... UD PRN IV 11/23/17 01:30 12/23/17 01:29 Glucagon (Glucagon Inj) 1 mg UD PRN SQ 11/23/17 01:30 12/23/17 01:29 Metoprolol Tartrate (Lopressor Iv) 5 mg Q4 PRN IV 11/23/17 02:00 12/22/17 23:29 Pantoprazole Sodium (Protonix Tab) 40 mg BID PO 11/23/17 11:30 12/23/17 11:29 11/24/17 08:39 40 MG Heparin Sodium (Porcine) (No Heparin In Dialysis) 1 ea 0600 N/A 11/25/17 06:00 11/25/17 18:00 Polyethylene Glycol/ Electrolytes (Golytely Soln) 16 dose TODAY@1600 PO 11/24/17 16:00 11/24/17 18:00 Objective Vital Signs Date Time Temp Pulse Resp B/P (MAP) Pulse Ox O2 Delivery O2 Flow Rate FiO2 11/24/17 12:00 Room Air 11/24/17 11:18 36.5 59 20 129/48 (75) 99 Room Air 11/24/17 08:00 Room Air 11/24/17 07:20 36.7 72 18 135/53 (80) 97 Room Air 11/24/17 04:13 36.6 66 18 145/55 (85) 95 Room Air 11/24/17 04:00 Room Air 11/24/17 00:01 Room Air 11/23/17 23:27 36.9 69 18 138/57 (84) 96 Room Air 11/23/17 20:30 67 147/66 (93) 11/23/17 20:00 94 Room Air 11/23/17 19:32 36.7 71 16 130/63 (85) 98 11/23/17 15:35 94 Room Air Physical Exam General Appearance: WD/WN, no apparent distress Cardiovascular: regular rate, rhythm, no edema Abdomen: normal bowel sounds, non tender, soft, no organomegaly Skin: normal color, warm/dry Laboratory Results Last 24 Hours Test 11/23/17 16:15 11/23/17 16:21 11/23/17 20:15 11/24/17 00:27 Bedside Glucose 139 mg/dl 126 mg/dl Hemoglobin 8.0 g/dL 7.6 g/dL Hematocrit 24.9 % 23.5 % Test 11/24/17 05:14 11/24/17 06:50 11/24/17 11:01 11/24/17 14:06 White Blood Count 5.63 K/uL Red Blood Count 2.58 M/uL Hemoglobin 7.9 g/dL 8.2 g/dL Hematocrit 24.7 % 25.3 % Mean Corpuscular Volume 95.7 fL Mean Corpuscular Hemoglobin 30.6 pg Mean Corpuscular Hemoglobin Concent 32.0 g/dl Platelet Count 119 K/uL Mean Platelet Volume 9.3 fL Neutrophils (%) (Auto) 56.7 % Lymphocytes (%) (Auto) 30.4 % Monocytes (%) (Auto) 8.5 % Eosinophils (%) (Auto) 3.9 % Basophils (%) (Auto) 0.0 % Neutrophils # (Auto) 3.19 K/uL Lymphocytes # (Auto) 1.71 K/uL Monocytes # (Auto) 0.48 K/uL Eosinophils # (Auto) 0.22 K/uL Basophils # (Auto) 0.00 K/uL RDW Standard Deviation 67.2 fL RDW Coefficient of Variation 20.2 % Immature Granulocyte % (Auto) 0.5 % Immature Granulocyte # (Auto) 0.03 K/uL Polychromasia 1+ Anisocytosis PRESENT Sodium Level 134 mmol/L Potassium Level 4.6 mmol/L Chloride Level 100 mmol/L Carbon Dioxide Level 26 mmol/L Anion Gap 8.0 mmol/L Blood Urea Nitrogen 65 mg/dl Creatinine 6.44 mg/dl Est Creatinine Clear Calc Drug Dose 9.8 ml/min Estimated GFR () 8.4 Estimated GFR (Non- 7.3 BUN/Creatinine Ratio 10.2 Random Glucose 124 mg/dl Calcium Level 8.0 mg/dl Iron Level 42 mcg/dl Total Iron Binding Capacity 251 mcg/dl Ferritin 361.4 ng/ml Total Bilirubin 0.5 mg/dl Aspartate Amino Transf (AST/SGOT) 16 U/L Alanine Aminotransferase (ALT/SGPT) 21 U/L Alkaline Phosphatase 47 U/L Total Protein 6.2 gm/dl Albumin 2.8 gm/dl Globulin 3.4 gm/dl Albumin/Globulin Ratio 0.8 Bedside Glucose 144 mg/dl 177 mg/dl Assessment and Plan Acute blood loss anemia--follow H and H and transfuse as needed GI bleeding--melena and rectal bleeding--unclear whether upper or lower or both. Would treat for PUD with PPI. Discussed with DR Landeros today and per her report hydrotechnical specialist did not feel needed involved in this case and Dr Landeros stating to proceed with EGD /colo tomorrow saturday11/25/17. Procedure and risks explained to patient which include but not limited to med reaction, bleeding, perforation, aspiration, and missed lesions hx of colon polyps--will see what colo shows pulm lesions--per hospitalist but will see if any GI malignancy on EGD/ colonoscopy ESRD on dialysis--I called DR Ulloa to coordinate dialysis with EGD./colo which is saturday. He states he will have patient dialyzed in am. Other problems per hospitalist afib, ESRD, DM, HTN
[2017-11-24 15:43] VITALS: BP 150/61; PULSE 63; TEMP 36.6; O2SAT 96
[2017-11-24] MEDS ORDERED: LAVAGE SOLUTION 4000ML PO SCH (16:00)
[2017-11-24 19:12] VITALS: BP 164/60; PULSE 67; TEMP 36.4; O2SAT 97
[2017-11-24] MEDS: PRAVASTATIN SOD 40 MG TAB PO SCH (21:17)
[2017-11-24 22:15] LABS: HEMATOCRIT 26.1 % (42-52); HEMOGLOBIN 8.5 g/dL (14.0-18.0)
[2017-11-25] VITALS (24 sets, daily range): BP systolic 112–163; BP diastolic 43–75; PULSE 61–78; TEMP 36.4–37; O2SAT 97–100
[2017-11-25 05:56] LABS: HEMATOCRIT 23.1 % (42-52); HEMOGLOBIN 7.6 g/dL (14.0-18.0); MEAN CELL VOLUME 93.9 fL (80-100); MEAN CORPUSCULAR HEMOGLOBIN 30.9 pg (25-34); MEAN CORPUSCULAR HGB CONC 32.9 g/dl (32-36); RED CELL DISTRIBUTION WIDTH CV 18.9 % (11.5-14.5); RED CELL DISTRIBUTION WIDTH SD 63.3 fL (36.4-46.3); WHITE BLOOD COUNT 4.41 K/uL (4.8-10.8)
[2017-11-25 06:24] LABS: BASO % 0.2 %; BASO ABS # 0.01 K/uL (0-0.2); EOS % 3.9 %; EOS ABS # 0.17 K/uL (0-0.5); IG# 0.01 K/uL (0.00-0.02); LYMPH % 27.2 %; MEAN PLATELET VOLUME 8.5 fL (7.4-10.4); MONO % 7.5 %; MONO ABS # 0.33 K/uL (0.11-0.59); NEUT ABS # 2.69 K/uL (1.4-6.5); PLATELET COUNT 97 K/uL (130-400)
[2017-11-25 06:41] LABS: ALBUMIN 2.8 gm/dl (3.4-5.0); CALCIUM 7.8 mg/dl (8.5-10.1); CREATININE 7.09 mg/dl (0.60-1.40); POTASSIUM 3.9 mmol/L (3.5-5.1)
[2017-11-25] MEDS: INSULIN ASPART 100 UNITS/ML 3 ML PEN SC SCH ×4 (07:00→20:50)
[2017-11-25] MEDS: INSULIN 70% ASPART PROTAMINE/30% ASPART SC SCH ×2 (07:30→18:24)
[2017-11-25] MEDS ORDERED: MINERAL OIL ENEMA 133 ML BTL PR ONE (08:30)
[2017-11-25] MEDS: PANTOprazole SOD 40 MG TAB PO SCH ×2 (08:39→20:51)
[2017-11-25] MEDS: DOCUSATE SODIUM 100 MG CAP PO SCH ×2 (08:40→20:46)
[2017-11-25] MEDS: CALCIUM ACETATE 667MG GELCAP PO SCH ×3 (08:40→18:22)
[2017-11-25] MEDS: METOPROLOL TARTRATE 25 MG TAB PO SCH ×2 (08:41→20:51)
[2017-11-25] MEDS: AMLODIPINE BESYLATE 5 MG TAB PO SCH (08:41)
[2017-11-25] MEDS: CEROVITE ADV FORMULA TAB PO SCH (08:41)
--- NOTE | 2017-11-25 12:21 | Dialysis Progress Note ---
Hemodialysis Note Date of Service Nov 25, 2017. Chief Complaint Follow-up for end-stage renal disease on hemodialysis. Rosa Maria Felix was seen and examined during hemodialysis this morning. He has been tolerating dialysis well. Hemoglobin again dropped to 7.6 and currently receiving 1 unit of blood transfusion with dialysis. Blood pressure stable. Review of Systems A complete review of systems was performed. Pertinent positives are noted above. All other systems are negative. Vital Signs Last 8 Hrs Date Time Temp Pulse Resp B/P (MAP) Pulse Ox O2 Delivery O2 Flow Rate FiO2 11/25/17 11:45 66 139/64 11/25/17 11:30 67 124/62 11/25/17 11:15 68 120/55 11/25/17 11:00 61 112/58 11/25/17 10:45 61 121/57 11/25/17 10:30 68 136/61 11/25/17 10:15 74 126/54 11/25/17 10:10 37.0 67 18 126/54 11/25/17 10:02 65 141/74 11/25/17 09:45 62 130/55 11/25/17 09:40 37.0 62 18 130/55 11/25/17 09:30 69 113/63 11/25/17 09:25 36.6 69 18 163/75 11/25/17 09:15 36.6 69 163/75 (104) 11/25/17 09:15 64 139/70 11/25/17 08:00 36.6 65 18 131/60 (83) 98 11/25/17 08:00 Room Air I & O 24-Hour Column 11/26/17 08:00 Intake Total 350 ml Balance 350 ml Last Recorded Weight Weight (Kilograms): 93.200 Family History Negative for CKD/ESRD Social History Smokeless Tobacco Use: No Alcohol Use: none Drug Use: none Marital Status: Housing Status: lives with family Occupation: retired . Retired. Never a smoker Laboratory Results Past 24 Hours 11/24/17 14:06 11/24/17 21:59 11/25/17 05:35 Red Blood Count 2.46, Mean Corpuscular Volume 93.9, Mean Corpuscular Hemoglobin 30.9, Mean Corpuscular Hemoglobin Concent 32.9, Mean Platelet Volume 8.5, Neutrophils (%) (Auto) 61.0, Lymphocytes (%) (Auto) 27.2, Monocytes (%) (Auto) 7.5, Eosinophils (%) (Auto) 3.9, Basophils (%) (Auto) 0.2, Neutrophils # (Auto) 2.69, Lymphocytes # (Auto) 1.20, Monocytes # (Auto) 0.33, Eosinophils # (Auto) 0.17, Basophils # (Auto) 0.01 11/25/17 05:35 Test 11/24/17 16:07 11/24/17 20:38 11/25/17 05:35 11/25/17 06:35 Bedside Glucose 138 mg/dl (70-99) 152 mg/dl (70-99) 144 mg/dl (70-99) White Blood Count 4.41 K/uL (4.8-10.8) Red Blood Count 2.46 M/uL (4.7-6.1) Hemoglobin 7.6 g/dL (14.0-18.0) Hematocrit 23.1 % (42-52) Mean Corpuscular Volume 93.9 fL (80-100) Mean Corpuscular Hemoglobin 30.9 pg (25-34) Mean Corpuscular Hemoglobin Concent 32.9 g/dl (32-36) Platelet Count 97 K/uL (130-400) Mean Platelet Volume 8.5 fL (7.4-10.4) Neutrophils (%) (Auto) 61.0 % Lymphocytes (%) (Auto) 27.2 % Monocytes (%) (Auto) 7.5 % Eosinophils (%) (Auto) 3.9 % Basophils (%) (Auto) 0.2 % Neutrophils # (Auto) 2.69 K/uL (1.4-6.5) Lymphocytes # (Auto) 1.20 K/uL (1.2-3.4) Monocytes # (Auto) 0.33 K/uL (0.11-0.59) Eosinophils # (Auto) 0.17 K/uL (0-0.5) Basophils # (Auto) 0.01 K/uL (0-0.2) RDW Standard Deviation 63.3 fL (36.4-46.3) RDW Coefficient of Variation 18.9 % (11.5-14.5) Immature Granulocyte % (Auto) 0.2 % Immature Granulocyte # (Auto) 0.01 K/uL (0.00-0.02) Platelet Estimate DECREASED Red Blood Cell Morphology Unremarkable Anion Gap 13.0 mmol/L (3-11) Est Creatinine Clear Calc Drug Dose 8.9 ml/min Estimated GFR () 7.5 Estimated GFR (Non- 6.5 BUN/Creatinine Ratio 9.2 (10-20) Calcium Level 7.8 mg/dl (8.5-10.1) Total Bilirubin 0.4 mg/dl (0.2-1) Aspartate Amino Transf (AST/SGOT) 13 U/L (15-37) Alanine Aminotransferase (ALT/SGPT) 21 U/L (12-78) Alkaline Phosphatase 47 U/L (45-117) Total Protein 6.0 gm/dl (6.4-8.2) Albumin 2.8 gm/dl (3.4-5.0) Globulin 3.2 gm/dl (2.5-4.0) Albumin/Globulin Ratio 0.9 (0.9-2) Allergies Coded Allergies: Clarithromycin (Verified Adverse Reaction, Intermediate, confusion, 11/14/17 ) Fish Oil (Verified Adverse Reaction, Intermediate, hx of hemorrage in past , 11/14/17) Sulfa Antibiotics (Verified Adverse Reaction, Intermediate, SEVERE AGITATION/DELIRIUM, 11/14/17) Medications Current Inpatient Medications Medications (Trade) Dose Ordered Sig/Kelsie Route Start Time Stop Time Status Last Admin Dose Admin Al Hydrox/Mg Hydrox/Simethicone (Maalox Max Susp) 15 ml Q4H PRN PO 11/22/17 23:30 12/22/17 23:29 Magnesium Hydroxide (Milk Of Magnesia Susp) 30 ml Q12H PRN PO 11/22/17 23:30 12/22/17 23:29 Ondansetron HCl (Zofran Inj) 4 mg Q6H PRN IV 11/22/17 23:30 12/22/17 23:29 Polyethylene (Miralax Powder Packet) 17 gm DAILY PRN PO 11/22/17 23:30 12/22/17 23:29 Amlodipine Besylate (Norvasc Tab) 5 mg QAM PO 11/23/17 09:00 12/23/17 08:59 11/25/17 08:41 5 MG Calcium Acetate (Phoslo Cap) 667 mg TIDM PRN PO 11/23/17 07:30 12/23/17 07:29 Docusate Sodium (coLACE CAP) 100 mg BID PO 11/23/17 09:00 12/23/17 08:59 11/25/17 08:40 100 MG Folic Acid (Folvite Tab) 1 mg DAILY PO 11/23/17 09:00 12/23/17 08:59 11/25/17 08:41 1 MG Insulin Aspart Prota 70%/Aspart 30% (novoLOG MIX 70/ 30) 58 units QDB SC 11/23/17 07:30 12/23/17 07:29 Metoprolol Tartrate (Lopressor Tab) 25 mg HS PO 11/23/17 21:00 12/23/17 20:59 11/24/17 21:17 25 MG Metoprolol Tartrate (Lopressor Tab) 50 mg QAM PO 11/23/17 09:00 12/23/17 08:59 11/25/17 08:41 50 MG Multivitamins/ Minerals (Multivitamin W/ Minerals Tab) 1 tab DAILY PO 11/23/17 09:00 12/23/17 08:59 11/25/17 08:41 1 TAB Pravastatin Sodium (Pravachol Tab) 40 mg QPM PO 11/23/17 21:00 12/23/17 20:59 11/24/17 21:17 40 MG Insulin Aspart Prota 70%/Aspart 30% (novoLOG MIX 70/ 30) 62 units QDD SC 11/23/17 16:45 12/23/17 16:44 Insulin Aspart (novoLOG ASPART) SLIDING SCALE G... ACHS SC 11/23/17 07:00 12/23/17 06:59 11/24/17 12:02 4 UNITS Calcium Acetate (Phoslo Cap) 1,334 mg TIDM PO 11/23/17 07:30 12/23/17 07:29 11/25/17 08:40 1,334 MG Glucose (Glucose 40% Gel) 15-30 GRAMS 15 GRAMS... UD PRN PO 11/23/17 01:30 12/23/17 01:29 Glucose (Glucose Chew Tab) 4-8 Tablets 4 Tabl... UD PRN PO 11/23/17 01:30 12/23/17 01:29 Dextrose (Dextrose 50% 50ML Syringe) 25-50ML OF 50% DW IV FOR... 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 BP stable -- Protect L arm AVF -- received 1 unit of blood transfusion with dialysis today -- Colonoscopy this afternoon -- On PPI therapy --avoid IV fluid, dose meds for GFR < 10
--- NOTE | 2017-11-25 13:05 | Gastroenterology Progress Note ---
Progress Note Date of Service: Nov 25, 2017 Subjective Pt evaluation today including: conversation w/ patient, physical exam, chart review, lab review, review of studies, review of inpatient medication list CC f/u melena, BRBPR HPI Not clear if prep adequate. Pt back from dialysis and to get mineral oil enema. Pt denies abd pain. Hgb drop and was to be tranfused in dialysis. Review of Systems Respiratory: No shortness of breath Cardiac: No chest pain Medications Current Inpatient Medications Medications (Trade) Dose Ordered Sig/Kelsie Route Start Time Stop Time Status Last Admin Dose Admin Al Hydrox/Mg Hydrox/Simethicone (Maalox Max Susp) 15 ml Q4H PRN PO 11/22/17 23:30 12/22/17 23:29 Magnesium Hydroxide (Milk Of Magnesia Susp) 30 ml Q12H PRN PO 11/22/17 23:30 12/22/17 23:29 Ondansetron HCl (Zofran Inj) 4 mg Q6H PRN IV 11/22/17 23:30 12/22/17 23:29 Polyethylene (Miralax Powder Packet) 17 gm DAILY PRN PO 11/22/17 23:30 12/22/17 23:29 Amlodipine Besylate (Norvasc Tab) 5 mg QAM PO 11/23/17 09:00 12/23/17 08:59 11/25/17 08:41 5 MG Calcium Acetate (Phoslo Cap) 667 mg TIDM PRN PO 11/23/17 07:30 12/23/17 07:29 Docusate Sodium (coLACE CAP) 100 mg BID PO 11/23/17 09:00 12/23/17 08:59 11/25/17 08:40 100 MG Folic Acid (Folvite Tab) 1 mg DAILY PO 11/23/17 09:00 12/23/17 08:59 11/25/17 08:41 1 MG Insulin Aspart Prota 70%/Aspart 30% (novoLOG MIX 70/ 30) 58 units QDB SC 11/23/17 07:30 12/23/17 07:29 Metoprolol Tartrate (Lopressor Tab) 25 mg HS PO 11/23/17 21:00 12/23/17 20:59 11/24/17 21:17 25 MG Metoprolol Tartrate (Lopressor Tab) 50 mg QAM PO 11/23/17 09:00 12/23/17 08:59 11/25/17 08:41 50 MG Multivitamins/ Minerals (Multivitamin W/ Minerals Tab) 1 tab DAILY PO 11/23/17 09:00 12/23/17 08:59 11/25/17 08:41 1 TAB Pravastatin Sodium (Pravachol Tab) 40 mg QPM PO 11/23/17 21:00 12/23/17 20:59 11/24/17 21:17 40 MG Insulin Aspart Prota 70%/Aspart 30% (novoLOG MIX 70/ 30) 62 units QDD SC 11/23/17 16:45 12/23/17 16:44 Insulin Aspart (novoLOG ASPART) SLIDING SCALE G... ACHS SC 11/23/17 07:00 12/23/17 06:59 11/24/17 12:02 4 UNITS Calcium Acetate (Phoslo Cap) 1,334 mg TIDM PO 11/23/17 07:30 12/23/17 07:29 11/25/17 08:40 1,334 MG Glucose (Glucose 40% Gel) 15-30 GRAMS 15 GRAMS... UD PRN PO 11/23/17 01:30 12/23/17 01:29 Glucose (Glucose Chew Tab) 4-8 Tablets 4 Tabl... UD PRN PO 11/23/17 01:30 12/23/17 01:29 Dextrose (Dextrose 50% 50ML Syringe) 25-50ML OF 50% DW IV FOR... UD PRN IV 11/23/17 01:30 12/23/17 01:29 Glucagon (Glucagon Inj) 1 mg UD PRN SQ 11/23/17 01:30 12/23/17 01:29 Metoprolol Tartrate (Lopressor Iv) 5 mg Q4 PRN IV 11/23/17 02:00 12/22/17 23:29 Pantoprazole Sodium (Protonix Tab) 40 mg BID PO 11/23/17 11:30 12/23/17 11:29 11/25/17 08:39 40 MG Heparin Sodium (Porcine) (No Heparin In Dialysis) 1 ea 0600 N/A 11/25/17 06:00 11/25/17 18:00 Objective Vital Signs Date Time Temp Pulse Resp B/P (MAP) Pulse Ox O2 Delivery O2 Flow Rate FiO2 11/25/17 12:24 36.9 69 123/68 (86) 11/25/17 12:15 69 123/68 11/25/17 12:01 78 119/64 11/25/17 11:45 66 139/64 11/25/17 11:30 67 124/62 11/25/17 11:15 68 120/55 11/25/17 11:00 61 112/58 11/25/17 10:45 61 121/57 11/25/17 10:30 68 136/61 11/25/17 10:15 74 126/54 11/25/17 10:10 37.0 67 18 126/54 11/25/17 10:02 65 141/74 11/25/17 09:45 62 130/55 11/25/17 09:40 37.0 62 18 130/55 11/25/17 09:30 69 113/63 11/25/17 09:25 36.6 69 18 163/75 11/25/17 09:15 36.6 69 163/75 (104) 11/25/17 09:15 64 139/70 11/25/17 08:00 36.6 65 18 131/60 (83) 98 11/25/17 08:00 Room Air 11/25/17 04:00 Room Air 11/25/17 03:21 36.6 69 18 156/66 (96) 98 11/25/17 00:02 36.5 66 16 130/69 (89) 100 Room Air 11/25/17 00:00 Room Air 11/24/17 20:00 Room Air 11/24/17 19:12 36.4 67 20 164/60 (94) 97 Room Air 11/24/17 16:00 Room Air 11/24/17 15:43 36.6 63 20 150/61 (90) 96 Room Air Physical Exam General Appearance: WD/WN, no apparent distress Respiratory/Chest: lungs clear, normal breath sounds, no respiratory distress Cardiovascular: no edema Abdomen: normal bowel sounds, non tender, soft, no organomegaly Neurologic/Psych: normal mood/affect, oriented x 3 Skin: no jaundice Laboratory Results Last 24 Hours Test 11/24/17 14:06 11/24/17 16:07 11/24/17 20:38 11/24/17 21:59 Hemoglobin 8.2 g/dL 8.5 g/dL Hematocrit 25.3 % 26.1 % Bedside Glucose 138 mg/dl 152 mg/dl Test 11/25/17 05:35 11/25/17 06:35 White Blood Count 4.41 K/uL Red Blood Count 2.46 M/uL Hemoglobin 7.6 g/dL Hematocrit 23.1 % Mean Corpuscular Volume 93.9 fL Mean Corpuscular Hemoglobin 30.9 pg Mean Corpuscular Hemoglobin Concent 32.9 g/dl Platelet Count 97 K/uL Mean Platelet Volume 8.5 fL Neutrophils (%) (Auto) 61.0 % Lymphocytes (%) (Auto) 27.2 % Monocytes (%) (Auto) 7.5 % Eosinophils (%) (Auto) 3.9 % Basophils (%) (Auto) 0.2 % Neutrophils # (Auto) 2.69 K/uL Lymphocytes # (Auto) 1.20 K/uL Monocytes # (Auto) 0.33 K/uL Eosinophils # (Auto) 0.17 K/uL Basophils # (Auto) 0.01 K/uL RDW Standard Deviation 63.3 fL RDW Coefficient of Variation 18.9 % Immature Granulocyte % (Auto) 0.2 % Immature Granulocyte # (Auto) 0.01 K/uL Platelet Estimate DECREASED Red Blood Cell Morphology Unremarkable Sodium Level 134 mmol/L Potassium Level 3.9 mmol/L Chloride Level 95 mmol/L Carbon Dioxide Level 26 mmol/L Anion Gap 13.0 mmol/L Blood Urea Nitrogen 66 mg/dl Creatinine 7.09 mg/dl Est Creatinine Clear Calc Drug Dose 8.9 ml/min Estimated GFR () 7.5 Estimated GFR (Non- 6.5 BUN/Creatinine Ratio 9.2 Random Glucose 124 mg/dl Calcium Level 7.8 mg/dl Total Bilirubin 0.4 mg/dl Aspartate Amino Transf (AST/SGOT) 13 U/L Alanine Aminotransferase (ALT/SGPT) 21 U/L Alkaline Phosphatase 47 U/L Total Protein 6.0 gm/dl Albumin 2.8 gm/dl Globulin 3.2 gm/dl Albumin/Globulin Ratio 0.9 Bedside Glucose 144 mg/dl Assessment and Plan Acute blood loss anemia--follow H and H and transfuse as needed GI bleeding--melena and rectal bleeding--unclear whether upper or lower or both. Would treat for PUD with PPI. EGD and colonoscopy today. . Procedure and risks explained to patient which include but not limited to med reaction, bleeding, perforation, aspiration, and missed lesions hx of colon polyps--will see what colo shows pulm lesions--per hospitalist but will see if any GI malignancy on EGD/ colonoscopy ESRD on dialysis--dialysed today Other problems per hospitalist afib, ESRD, DM, HTN
[2017-11-25] MEDS ORDERED: PROPOFOL IV EMULSION 10 MG/ML 20 ML VIAL IV ONE ×2 (15:24→16:13)
[2017-11-25] MEDS ORDERED: LIDOCAINE HCL 2% 2 ML VIAL (20MG/ML) ONE (15:24)
[2017-11-25] MEDS ORDERED: EpHEDrine SULFATE 50MG/5ML SYR ONE (16:13)
--- NOTE | 2017-11-25 16:29 | Anesthesiology Progress Note ---
Anesthesia Post Op Note Date & Time Nov 25, 2017 at 16:29 Vital Signs Pain Intensity: 0.0 Vital Signs Past 12 Hours Date Time Temp Pulse Resp B/P (MAP) Pulse Ox O2 Delivery O2 Flow Rate FiO2 11/25/17 15:07 36.8 87 18 178/87 (117) 96 Room Air 11/25/17 13:00 36.9 71 20 127/62 (83) 98 11/25/17 13:00 Room Air 11/25/17 12:24 36.9 69 123/68 (86) 11/25/17 12:15 69 123/68 11/25/17 12:01 78 119/64 11/25/17 11:45 66 139/64 11/25/17 11:30 67 124/62 11/25/17 11:15 68 120/55 11/25/17 11:00 61 112/58 11/25/17 10:45 61 121/57 11/25/17 10:30 68 136/61 11/25/17 10:15 74 126/54 11/25/17 10:10 37.0 67 18 126/54 11/25/17 10:02 65 141/74 11/25/17 09:45 62 130/55 11/25/17 09:40 37.0 62 18 130/55 11/25/17 09:30 69 113/63 11/25/17 09:25 36.6 69 18 163/75 11/25/17 09:15 36.6 69 163/75 (104) 11/25/17 09:15 64 139/70 11/25/17 08:00 36.6 65 18 131/60 (83) 98 11/25/17 08:00 Room Air Notes Mental Status: alert / awake / arousable, participated in evaluation Pt Amnestic to Procedure: Yes Nausea / Vomiting: adequately controlled Pain: adequately controlled Airway Patency, RR, SpO2: stable & adequate BP & HR: stable & adequate Hydration State: stable & adequate Anesthetic Complications: no major complications apparent
--- NOTE | 2017-11-25 16:31 | GI REPORT ---
Procedure Date: 11/25/2017 3:27 PM Procedure: Upper GI endoscopy Indications: Melena Medicines: Monitored Anesthesia Care Complications: No immediate complications. Estimated blood loss: Minimal. Estimated Blood Loss: Estimated blood loss was minimal. Procedure: Pre-Anesthesia Assessment: - Prior to the procedure, a History and Physical was performed, and patient medications and allergies were reviewed. The patient is competent. The risks and benefits of the procedure and the sedation options and risks were discussed with the patient. All questions were answered and informed consent was obtained. Patient identification and proposed procedure were verified by the physician, the nurse and the bag machine adjuster in the procedure room. Mental Status Examination: alert and oriented. Airway Examination: normal oropharyngeal airway and neck mobility. Respiratory Examination: clear to auscultation. CV Examination: normal. Prophylactic Antibiotics: The patient does not require prophylactic antibiotics. Prior Anticoagulants: The patient has taken no previous anticoagulant or antiplatelet agents. ASA Grade Assessment: III - A patient with severe systemic disease. After reviewing the risks and benefits, the patient was deemed in satisfactory condition to undergo the procedure. The anesthesia plan was to use monitored anesthesia care (MAC). Immediately prior to administration of medications, the patient was re-assessed for adequacy to receive sedatives. The heart rate, respiratory rate, oxygen saturations, blood pressure, adequacy of pulmonary ventilation, and response to care were monitored throughout the procedure. The physical status of the patient was re-assessed after the procedure. After obtaining informed consent, the endoscope was passed under direct vision. Throughout the procedure, the patient's blood pressure, pulse, and oxygen saturations were monitored continuously. The scope was introduced through the mouth, and advanced to the. The scope was introduced through the mouth, and advanced to the second part of duodenum. The upper GI endoscopy was accomplished without difficulty. The patient tolerated the procedure well. Procedure and risks explained to patient which include but not limited to medication reaction, bleeding, perforation, aspiration , and missed lesions. Judicious gas insufflation was used and gas removal done on the way out. The lumen was always visualized when advancing the scope. Prep was good. Washes and suctioning used as needed to get good visualization of the mucosa. Retroflexion to look at the fundus and cardia of the stomach and GE junction was done. Findings: The Z-line was regular and was found 38 cm from the incisors. A 3 cm hiatal hernia was present. 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 Coagulation for bleeding prevention using argon plasma at 1.4 liters/minute and 35 neely was successful. Vascular ectasia of fundus noted and APC done there also. Estimated blood loss was minimal. Localized mildly erythematous mucosa was found in the gastric antrum. Localized moderately erythematous mucosa without active bleeding and with no stigmata of bleeding was found in the first portion of the duodenum. A single 3 mm angioectasia without bleeding was found in the second portion of the duodenum. Coagulation for bleeding prevention using argon plasma at 0.8 liters/minute and 20 neely was successful. Estimated blood loss: none. 2-- 6 to 15 mm mucosal nodules with a localized distribution were found in the second portion of the duodenum. Biopsies were taken with a cold forceps for histology. Estimated blood loss was minimal. No fresh nor old blood noted except self limited post maneuvers as above. Impression: - Z-line regular, 38 cm from the incisors. - 3 cm hiatal hernia. 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 Treated with argon plasma coagulation (APC). - Erythematous mucosa in the antrum. - Erythematous duodenopathy. - A single non-bleeding angioectasia in the duodenum. Treated with argon plasma coagulation (APC). - Two mucosal nodules found in the duodenum. Biopsied. - No fresh nor old blood noted except self limited post maneuvers as above. Recommendation: - [facility]. - Depending on pathology may need endoscopic mucosal resection of duodenal nodules as outpt. Likely will also need repeat EGD with APC of vascular ectasia which can be source of melena. Naif Rosa M.D. Naif Rosa MD 11/25/2017 4:30:27 PM This report has been signed electronically. Note Initiated On: 11/25/2017 3:27 PM I attest to the content of the Intraoperative Record and orders documented therein, exceptions below
--- NOTE | 2017-11-25 16:39 | GI REPORT ---
Procedure Date: 11/25/2017 3:25 PM Procedure: Colonoscopy Indications: Hematochezia Medicines: Monitored Anesthesia Care Complications: No immediate complications. Estimated blood loss: None. Estimated Blood Loss: Estimated blood loss: none. Procedure: Pre-Anesthesia Assessment: - Prior to the procedure, a History and Physical was performed, and patient medications and allergies were reviewed. The patient is competent. The risks and benefits of the procedure and the sedation options and risks were discussed with the patient. All questions were answered and informed consent was obtained. Patient identification and proposed procedure were verified by the physician, the nurse and the sourcing consultant in the procedure room. Mental Status Examination: alert and oriented. Airway Examination: normal oropharyngeal airway and neck mobility. Respiratory Examination: clear to auscultation. CV Examination: normal. Prophylactic Antibiotics: The patient does not require prophylactic antibiotics. Prior Anticoagulants: The patient has taken no previous anticoagulant or antiplatelet agents. ASA Grade Assessment: III - A patient with severe systemic disease. After reviewing the risks and benefits, the patient was deemed in satisfactory condition to undergo the procedure. The anesthesia plan was to use monitored anesthesia care (MAC). Immediately prior to administration of medications, the patient was re-assessed for adequacy to receive sedatives. The heart rate, respiratory rate, oxygen saturations, blood pressure, adequacy of pulmonary ventilation, and response to care were monitored throughout the procedure. The physical status of the patient was re-assessed after the procedure. After I obtained informed consent, the scope was passed under direct vision. Throughout the procedure, the patient's blood pressure, pulse, and oxygen saturations were monitored continuously. The Scope was introduced through the anus and advanced to the terminal ileum. The colonoscopy was technically difficult and complex due to significant looping. Successful completion of the procedure was aided by using manual pressure and straightening and shortening the scope to obtain bowel loop reduction. The patient tolerated the procedure well. Procedure and risks explained to patient which include but not limited to med reaction, bleeding, perforation, aspiration and missed lesions. Judicious gas insufflation and gas removal done on the way out. The lumen always well visualized when advancing the scope. Washes and suctioning used as needed for good visuzlization of mucosa. Prep was fair even with washes. Retroflexion in the rectum to look at the distal rectum and anal canal done. Findings: A large amount of liquid stool was found in the entire colon, interfering with visualization. Lavage of the area was performed using a large amount, resulting in clearance with fair visualization. There was evidence of a prior end-to-side ileo-colonic anastomosis in the ascending colon. This was patent and was characterized by healthy appearing mucosa. The anastomosis was traversed. A 4 mm polyp was found in the ascending colon. The polyp was sessile. The polyp was removed with a lift and cut technique using a cold snare. Resection and retrieval were complete. Estimated blood loss was minimal. Multiple medium-sized patchy angioectasias without bleeding were found in the rectum consistent with radiation change. Internal hemorrhoids were found during retroflexion. The hemorrhoids were moderate. The exam was otherwise without abnormality on direct and retroflexion views. No melena nor fresh nor old blood noted. Impression: - Stool in the entire examined colon. - Patent end-to-side ileo-colonic anastomosis, characterized by healthy appearing mucosa. - One 4 mm polyp in the ascending colon, removed using lift and cut and a cold snare. Resected and retrieved. 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 - Internal hemorrhoids. - The examination was otherwise normal on direct and retroflexion views. Recommendation: - [facility]. - Suspect findings on the EGD explain the melena. Radiation proctitis and/or hemorrhoids can explain bright red blood per rectum. Naif Rosa M.D. Naif Rosa MD 11/25/2017 4:38:57 PM This report has been signed electronically. Note Initiated On: 11/25/2017 3:25 PM I attest to the content of the Intraoperative Record and orders documented therein, exceptions below
--- NOTE | 2017-11-25 16:42 | Progress Note ---
Progress Note Date of Service Nov 25, 2017. Progress Note Pt stable and denies abd pain post EGD/[place]. Went over EGD and colo results. PPI to help heal cautery ulcers in stomach. Advance diet. Repeat EGD as outpt.
[2017-11-25 18:37] LABS: HEMATOCRIT 27.2 % (42-52); HEMOGLOBIN 8.8 g/dL (14.0-18.0)
[2017-11-25] MEDS: PRAVASTATIN SOD 40 MG TAB PO SCH (20:51)
--- NOTE | 2017-11-25 21:58 | Family Medicine Progress Note ---
Progress Note Date of Service Nov 25, 2017. Subjective Pt evaluation today including: conversation w/ patient, physical exam, chart review, lab review Pain: Patient denies pain PO Intake: Tolerating well after scopes today Voiding: no voiding problems patient reports fatigue from busy day today Constitutional: + weakness, + fatigue, No fever, No chills, No sweats, No weight loss, No problem reported Abdomen: + GI bleeding All Other Systems: Reviewed and Negative Medications Current Inpatient Medications Medications (Trade) Dose Ordered Sig/Kelsie Route Start Time Stop Time Status Last Admin Dose Admin Al Hydrox/Mg Hydrox/Simethicone (Maalox Max Susp) 15 ml Q4H PRN PO 11/22/17 23:30 12/22/17 23:29 Magnesium Hydroxide (Milk Of Magnesia Susp) 30 ml Q12H PRN PO 11/22/17 23:30 12/22/17 23:29 Ondansetron HCl (Zofran Inj) 4 mg Q6H PRN IV 11/22/17 23:30 12/22/17 23:29 Polyethylene (Miralax Powder Packet) 17 gm DAILY PRN PO 11/22/17 23:30 12/22/17 23:29 Amlodipine Besylate (Norvasc Tab) 5 mg QAM PO 11/23/17 09:00 12/23/17 08:59 11/25/17 08:41 5 MG Calcium Acetate (Phoslo Cap) 667 mg TIDM PRN PO 11/23/17 07:30 12/23/17 07:29 Docusate Sodium (coLACE CAP) 100 mg BID PO 11/23/17 09:00 12/23/17 08:59 11/25/17 08:40 100 MG Folic Acid (Folvite Tab) 1 mg DAILY PO 11/23/17 09:00 12/23/17 08:59 11/25/17 08:41 1 MG Insulin Aspart Prota 70%/Aspart 30% (novoLOG MIX 70/ 30) 58 units QDB SC 11/23/17 07:30 12/23/17 07:29 Metoprolol Tartrate (Lopressor Tab) 25 mg HS PO 11/23/17 21:00 12/23/17 20:59 11/25/17 20:51 25 MG Metoprolol Tartrate (Lopressor Tab) 50 mg QAM PO 11/23/17 09:00 12/23/17 08:59 11/25/17 08:41 50 MG Multivitamins/ Minerals (Multivitamin W/ Minerals Tab) 1 tab DAILY PO 11/23/17 09:00 12/23/17 08:59 11/25/17 08:41 1 TAB Pravastatin Sodium (Pravachol Tab) 40 mg QPM PO 11/23/17 21:00 12/23/17 20:59 11/25/17 20:51 40 MG Insulin Aspart Prota 70%/Aspart 30% (novoLOG MIX 70/ 30) 62 units QDD SC 11/23/17 16:45 12/23/17 16:44 11/25/17 18:24 62 UNITS Insulin Aspart (novoLOG ASPART) SLIDING SCALE G... ACHS SC 11/23/17 07:00 12/23/17 06:59 11/24/17 12:02 4 UNITS Calcium Acetate (Phoslo Cap) 1,334 mg TIDM PO 11/23/17 07:30 12/23/17 07:29 11/25/17 18:22 1,334 MG Glucose (Glucose 40% Gel) 15-30 GRAMS 15 GRAMS... UD PRN PO 11/23/17 01:30 12/23/17 01:29 Glucose (Glucose Chew Tab) 4-8 Tablets 4 Tabl... UD PRN PO 11/23/17 01:30 12/23/17 01:29 Dextrose (Dextrose 50% 50ML Syringe) 25-50ML OF 50% DW IV FOR... UD PRN IV 11/23/17 01:30 12/23/17 01:29 Glucagon (Glucagon Inj) 1 mg UD PRN SQ 11/23/17 01:30 12/23/17 01:29 Metoprolol Tartrate (Lopressor Iv) 5 mg Q4 PRN IV 11/23/17 02:00 12/22/17 23:29 Pantoprazole Sodium (Protonix Tab) 40 mg BID PO 11/23/17 11:30 12/23/17 11:29 11/25/17 20:51 40 MG Objective Vital Signs Date Time Temp Pulse Resp B/P (MAP) Pulse Ox O2 Delivery O2 Flow Rate FiO2 11/25/17 20:00 Room Air 11/25/17 19:03 36.8 74 20 118/52 (74) 97 Room Air 11/25/17 17:15 36.4 65 20 133/43 (73) 97 Room Air 11/25/17 17:15 Room Air 11/25/17 16:58 82 20 156/56 (89) 96 Room Air 11/25/17 16:43 72 20 137/61 (86) 96 Room Air 11/25/17 16:28 80 20 127/68 (87) 96 Room Air 11/25/17 15:07 36.8 87 18 178/87 (117) 96 Room Air 11/25/17 13:00 36.9 71 20 127/62 (83) 98 11/25/17 13:00 Room Air 11/25/17 12:24 36.9 69 123/68 (86) 11/25/17 12:15 69 123/68 11/25/17 12:01 78 119/64 11/25/17 11:45 66 139/64 11/25/17 11:30 67 124/62 11/25/17 11:15 68 120/55 11/25/17 11:00 61 112/58 11/25/17 10:45 61 121/57 11/25/17 10:30 68 136/61 11/25/17 10:15 74 126/54 11/25/17 10:10 37.0 67 18 126/54 11/25/17 10:02 65 141/74 11/25/17 09:45 62 130/55 11/25/17 09:40 37.0 62 18 130/55 11/25/17 09:30 69 113/63 11/25/17 09:25 36.6 69 18 163/75 11/25/17 09:15 36.6 69 163/75 (104) 11/25/17 09:15 64 139/70 11/25/17 08:00 36.6 65 18 131/60 (83) 98 11/25/17 08:00 Room Air 11/25/17 04:00 Room Air 11/25/17 03:21 36.6 69 18 156/66 (96) 98 11/25/17 00:02 36.5 66 16 130/69 (89) 100 Room Air 11/25/17 00:00 Room Air Physical Exam General Appearance: WD/WN, no apparent distress Eyes: normal inspection, PERRL, EOMI, sclerae normal ENT: normal ENT inspection, hearing grossly normal Neck: supple, no adenopathy, no carotid bruits, trachea midline Respiratory/Chest: chest non-tender, lungs clear, normal breath sounds, no respiratory distress, no accessory muscle use Cardiovascular: regular rate, rhythm, no edema, no gallop, no JVD, no murmur Abdomen: normal bowel sounds, non tender, soft Extremities: normal range of motion, non-tender, normal inspection, no pedal edema, no calf tenderness Neurologic/Psychiatric: christmas tree grader II-XII nml as tested, no motor/sensory deficits, alert, normal mood/affect, oriented x 3 Skin: normal color, warm/dry, no rash Laboratory Results Last Resulted 11/25/17 05:35 Red Blood Count 2.46, Mean Corpuscular Volume 93.9, Mean Corpuscular Hemoglobin 30.9, Mean Corpuscular Hemoglobin Concent 32.9, Mean Platelet Volume 8.5, Neutrophils (%) (Auto) 61.0, Lymphocytes (%) (Auto) 27.2, Monocytes (%) (Auto) 7.5, Eosinophils (%) (Auto) 3.9, Basophils (%) (Auto) 0.2, Neutrophils # (Auto) 2.69, Lymphocytes # (Auto) 1.20, Monocytes # (Auto) 0.33, Eosinophils # (Auto) 0.17, Basophils # (Auto) 0.01 11/25/17 18:28 Last Resulted 11/25/17 05:35 Assessment and Plan Mr. 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 Was found to have a hgb of 7.1 and has been having dark stools. 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 He is high risk for a low risk procedure. EKG Changes - initial EKG read was atrial fibrillation, however patient was never in atrial fibrillation, but rather sinus rhythm w/PACs - continue to monitor - Discussion must be had with patient/family regarding risks/benefits of treating afib risk with anticoag. ESRD with dialysis - Dialysis on Sat, Sat and - monitor I/O's - thank you to nephro for consult - volume status and electrolyte balance acceptable - no need for urgent HD, will resume HD as per schedule - monitor BMP - hold home meds DM2 - last Hba1c was 5.6 in August - continue home regimen of 70/30 insulin - continue ISS - check blood sugars [facility] HTN - continue home metoprolol and amlodipine HLD - continue statin Hx of prostate CA - local to prostate, had prostatectomy - no recurrence since - lesions noted in lungs -> increasing in size. He is aware of these and used to follow with Dr. Jackson - will require outpatient f/u DVT prophylaxis: contraindicated due to GI bleed, no SCD due to venous skin changes Code: Full code, no mechanical or cardioversion Disposition: remains on telemetry Resident Tracking Resident Involvement: Resident Care Provided Care Provided: Adult Hospital Medicine
[2017-11-26 04:06] VITALS: BP 115/53; PULSE 103; TEMP 36.6; O2SAT 96
[2017-11-26 05:37] LABS: HEMATOCRIT 23.8 % (42-52); HEMOGLOBIN 7.9 g/dL (14.0-18.0); MEAN CELL VOLUME 92.6 fL (80-100); MEAN CORPUSCULAR HEMOGLOBIN 30.7 pg (25-34); MEAN CORPUSCULAR HGB CONC 33.2 g/dl (32-36); RED CELL DISTRIBUTION WIDTH CV 18.6 % (11.5-14.5); RED CELL DISTRIBUTION WIDTH SD 61.5 fL (36.4-46.3); WHITE BLOOD COUNT 4.51 K/uL (4.8-10.8)
[2017-11-26 05:43] LABS: MEAN PLATELET VOLUME 9.1 fL (7.4-10.4); PLATELET COUNT 85 K/uL (130-400)
[2017-11-26 06:00] LABS: EOS % 1.3 %; EOS ABS # 0.06 K/uL (0-0.5); IG# 0.01 K/uL (0.00-0.02); LYMPH % 18.8 %; LYMPH ABS # 0.85 K/uL (1.2-3.4); MONO % 8.6 %; MONO ABS # 0.39 K/uL (0.11-0.59); NEUT % 71.1 %
[2017-11-26 06:12] LABS: ALBUMIN 2.6 gm/dl (3.4-5.0); CALCIUM 7.1 mg/dl (8.5-10.1); CREATININE 5.85 mg/dl (0.60-1.40); TOTAL PROTEIN 5.6 gm/dl (6.4-8.2)
[2017-11-26] MEDS: INSULIN ASPART 100 UNITS/ML 3 ML PEN SC SCH ×4 (07:00→21:00)
[2017-11-26 07:01] VITALS: BP 134/62; PULSE 67; TEMP 36.7; O2SAT 97
[2017-11-26] MEDS: INSULIN 70% ASPART PROTAMINE/30% ASPART SC SCH ×2 (07:25→17:46)
[2017-11-26] MEDS: CALCIUM ACETATE 667MG GELCAP PO SCH ×3 (07:25→17:47)
[2017-11-26] MEDS: METOPROLOL TARTRATE 25 MG TAB PO SCH ×2 (07:30→19:51)
[2017-11-26] MEDS: PANTOprazole SOD 40 MG TAB PO SCH ×2 (07:30→19:52)
[2017-11-26] MEDS: DOCUSATE SODIUM 100 MG CAP PO SCH ×2 (07:30→19:51)
[2017-11-26] MEDS: AMLODIPINE BESYLATE 5 MG TAB PO SCH (07:31)
[2017-11-26] MEDS: CEROVITE ADV FORMULA TAB PO SCH (07:35)
--- NOTE | 2017-11-26 10:19 | Nephrology Progress Note ---
Nephrology Progress Note Date of Service Nov 26, 2017. Chief Complaint Follow-up for end-stage renal disease on hemodialysis. Subjective Isidro was seen and examined in his room this morning. Overall he has been feeling well. He had dialysis yesterday and the afternoon he had EGD and colonoscopy without any active bleeding but found to have vascular ectasia, angio dysplasia and internal hemorrhoid. Received 1 unit of blood transfusion yesterday, hemoglobin increased to 8.8 however dropped again this morning to 7.9. Denied any fresh blood per rectum or black Review of Systems A complete review of systems was performed. Pertinent positives are noted above. All other systems are negative. Vital Signs Last 8 Hrs Date Time Temp Pulse Resp B/P (MAP) Pulse Ox O2 Delivery O2 Flow Rate FiO2 11/26/17 08:00 Room Air 11/26/17 07:01 36.7 67 20 134/62 (86) 97 Room Air 11/26/17 04:06 36.6 103 18 115/53 (73) 96 Room Air 11/26/17 04:00 Room Air Last Recorded Weight Weight (Kilograms): 93.100 Physical Exam GENERAL: Elderly male, AAA x 3, pleasant, healthy-appearing, not in any distress. NECK: Supple, no JVD. RESPIRATORY: Normal breathing efforts, no accessory muscle use, clear to auscultation bilaterally, no wheezes or rales. CARDIOVASCULAR: S1, S2 normal, rate rhythm regular. EXTREMITY: No lower extremity edema NEURO: speech fluent. PSYCHIATRY: Normal mood and judgment Family History Patient reports no known family medical history. Negative for CKD/ESRD Social History Smokeless Tobacco Use: No Alcohol Use: none Drug Use: none Marital Status: Housing Status: lives with family Occupation: retired . Retired. Never a smoker Laboratory Results Past 24 Hours 11/25/17 18:28 11/26/17 05:12 Red Blood Count 2.57, Mean Corpuscular Volume 92.6, Mean Corpuscular Hemoglobin 30.7, Mean Corpuscular Hemoglobin Concent 33.2, Mean Platelet Volume 9.1, Neutrophils (%) (Auto) 71.1, Lymphocytes (%) (Auto) 18.8, Monocytes (%) (Auto) 8.6, Eosinophils (%) (Auto) 1.3, Basophils (%) (Auto) 0.0, Neutrophils # (Auto) 3.20, Lymphocytes # (Auto) 0.85, Monocytes # (Auto) 0.39, Eosinophils # (Auto) 0.06, Basophils # (Auto) 0.00 11/26/17 05:12 Test 11/25/17 12:57 11/25/17 17:51 11/25/17 20:25 11/26/17 01:25 Bedside Glucose 131 mg/dl (70-99) 154 mg/dl (70-99) 108 mg/dl (70-99) 52 mg/dl (70-99) Test 11/26/17 01:43 11/26/17 05:12 11/26/17 06:37 Bedside Glucose 88 mg/dl (70-99) 84 mg/dl (70-99) White Blood Count 4.51 K/uL (4.8-10.8) Red Blood Count 2.57 M/uL (4.7-6.1) Hemoglobin 7.9 g/dL (14.0-18.0) Hematocrit 23.8 % (42-52) Mean Corpuscular Volume 92.6 fL (80-100) Mean Corpuscular Hemoglobin 30.7 pg (25-34) Mean Corpuscular Hemoglobin Concent 33.2 g/dl (32-36) Platelet Count 85 K/uL (130-400) Mean Platelet Volume 9.1 fL (7.4-10.4) Neutrophils (%) (Auto) 71.1 % Lymphocytes (%) (Auto) 18.8 % Monocytes (%) (Auto) 8.6 % Eosinophils (%) (Auto) 1.3 % Basophils (%) (Auto) 0.0 % Neutrophils # (Auto) 3.20 K/uL (1.4-6.5) Lymphocytes # (Auto) 0.85 K/uL (1.2-3.4) Monocytes # (Auto) 0.39 K/uL (0.11-0.59) Eosinophils # (Auto) 0.06 K/uL (0-0.5) Basophils # (Auto) 0.00 K/uL (0-0.2) RDW Standard Deviation 61.5 fL (36.4-46.3) RDW Coefficient of Variation 18.6 % (11.5-14.5) Immature Granulocyte % (Auto) 0.2 % Immature Granulocyte # (Auto) 0.01 K/uL (0.00-0.02) Red Blood Cell Morphology Unremarkable Anion Gap 10.0 mmol/L (3-11) Est Creatinine Clear Calc Drug Dose 10.8 ml/min Estimated GFR () 9.5 Estimated GFR (Non- 8.2 BUN/Creatinine Ratio 8.1 (10-20) Calcium Level 7.1 mg/dl (8.5-10.1) Total Bilirubin 0.4 mg/dl (0.2-1) Aspartate Amino Transf (AST/SGOT) 13 U/L (15-37) Alanine Aminotransferase (ALT/SGPT) 21 U/L (12-78) Alkaline Phosphatase 45 U/L (45-117) Total Protein 5.6 gm/dl (6.4-8.2) Albumin 2.6 gm/dl (3.4-5.0) Globulin 3.0 gm/dl (2.5-4.0) Albumin/Globulin Ratio 0.9 (0.9-2) Allergies Coded Allergies: Clarithromycin (Verified Adverse Reaction, Intermediate, confusion, 11/14/17 ) Fish Oil (Verified Adverse Reaction, Intermediate, hx of hemorrage in past , 11/14/17) Sulfa Antibiotics (Verified Adverse Reaction, Intermediate, SEVERE AGITATION/DELIRIUM, 11/14/17) Medications Current Inpatient Medications Medications (Trade) Dose Ordered Sig/Kelsie Route Start Time Stop Time Status Last Admin Dose Admin Al Hydrox/Mg Hydrox/Simethicone (Maalox Max Susp) 15 ml Q4H PRN PO 11/22/17 23:30 12/22/17 23:29 Magnesium Hydroxide (Milk Of Magnesia Susp) 30 ml Q12H PRN PO 11/22/17 23:30 12/22/17 23:29 Ondansetron HCl (Zofran Inj) 4 mg Q6H PRN IV 11/22/17 23:30 12/22/17 23:29 Polyethylene (Miralax Powder Packet) 17 gm DAILY PRN PO 11/22/17 23:30 12/22/17 23:29 Amlodipine Besylate (Norvasc Tab) 5 mg QAM PO 11/23/17 09:00 12/23/17 08:59 11/26/17 07:31 5 MG Calcium Acetate (Phoslo Cap) 667 mg TIDM PRN PO 11/23/17 07:30 12/23/17 07:29 Docusate Sodium (coLACE CAP) 100 mg BID PO 11/23/17 09:00 12/23/17 08:59 11/26/17 07:30 100 MG Folic Acid (Folvite Tab) 1 mg DAILY PO 11/23/17 09:00 12/23/17 08:59 11/26/17 07:30 1 MG Insulin Aspart Prota 70%/Aspart 30% (novoLOG MIX 70/ 30) 58 units QDB SC 11/23/17 07:30 12/23/17 07:29 Metoprolol Tartrate (Lopressor Tab) 25 mg HS PO 11/23/17 21:00 12/23/17 20:59 11/25/17 20:51 25 MG Metoprolol Tartrate (Lopressor Tab) 50 mg QAM PO 11/23/17 09:00 12/23/17 08:59 11/26/17 07:30 50 MG Multivitamins/ Minerals (Multivitamin W/ Minerals Tab) 1 tab DAILY PO 11/23/17 09:00 12/23/17 08:59 11/26/17 07:35 1 TAB Pravastatin Sodium (Pravachol Tab) 40 mg QPM PO 11/23/17 21:00 12/23/17 20:59 11/25/17 20:51 40 MG Insulin Aspart Prota 70%/Aspart 30% (novoLOG MIX 70/ 30) 62 units QDD SC 11/23/17 16:45 12/23/17 16:44 11/25/17 18:24 62 UNITS Insulin Aspart (novoLOG ASPART) SLIDING SCALE G... ACHS SC 11/23/17 07:00 12/23/17 06:59 11/24/17 12:02 4 UNITS Calcium Acetate (Phoslo Cap) 1,334 mg TIDM PO 11/23/17 07:30 12/23/17 07:29 11/26/17 07:31 1,334 MG Glucose (Glucose 40% Gel) 15-30 GRAMS 15 GRAMS... UD PRN PO 11/23/17 01:30 12/23/17 01:29 Glucose (Glucose Chew Tab) 4-8 Tablets 4 Tabl... UD PRN PO 11/23/17 01:30 12/23/17 01:29 Dextrose (Dextrose 50% 50ML Syringe) 25-50ML OF 50% DW IV FOR... 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 -- Protect L arm AVF --since room given dropped again to 7.9, suggest checking another hemoglobin this afternoon if there is plan for discharge -- On PPI therapy --avoid IV fluid, dose meds for GFR < 10
[2017-11-26 13:19] VITALS: BP 118/45; PULSE 61; TEMP 36.8; O2SAT 97
[2017-11-26 15:16] VITALS: BP 123/47; PULSE 66; TEMP 36.9; O2SAT 98
[2017-11-26 16:22] LABS: HEMATOCRIT 27.5 % (42-52); HEMOGLOBIN 9.1 g/dL (14.0-18.0)
--- NOTE | 2017-11-26 18:10 | GASTROENTEROLOGY PROGRESS NOTE ---
DATE: 11/26/2017 GASTROENTEROLOGY INPATIENT PROGRESS NOTE SUBJECTIVE: Chart reviewed, patient examined. The patient admitted for gastrointestinal hemorrhage and seen in consultation by Dr. Rosa on November 23. The patient underwent upper endoscopy and colonoscopy yesterday. Colonoscopy and upper endoscopy on biopsy revealed duodenal nodules that were mild chronic active duodenitis, there were dilated basal glands noted, Giardia is not seen and no malignancy is identified. The colon showed an inflamed tubular adenoma in the ascending position. The patient's hemoglobin today is 9.1, earlier today was 7.9 and his hemoglobin on November 25 was 8.8. Platelets are decreased at 85,000. BUN and creatinine are 47 and 5.83 (the patient on hemodialysis and has tentative plan to receive a dialysis session tomorrow). LFTs are normal, total bilirubin 0.4, AST 13, ALT 21, alkaline phosphatase 45. INR is normal at 1.0 on November 23. 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 REVIEW OF SYSTEMS: Otherwise noncontributory based on 13-point exam except for mentioned above. ALLERGIES: THE PATIENT'S ALLERGY LIST WAS REVIEWED AND INCLUDES SULFAS AND CLARITHROMYCIN. CURRENT MEDICATION LIST: Includes Lopressor, pravastatin, insulin, pantoprazole, amlodipine, Colace, folic acid, calcium acetate, insulin. OBJECTIVE: VITAL SIGNS: This afternoon - temperature 36.9, heart rate 66, respirations 20, blood pressure 123/47, 98% on nasal cannula. GENERAL: Today, the patient is awake, alert and oriented x3, visiting with his family. The patient is sitting in the chair comfortably. HEENT: Sclerae anicteric, conjunctivae moist. Oral mucosa moist. The patient is normocephalic, atraumatic. NECK: Normal range of motion. HEART: Normal S1, S2. LUNGS: Clear to auscultation without wheezes. ABDOMEN: Soft, protuberant, nontender, nondistended with positive bowel sounds. EXTREMITIES: Normal range of motion. Without clubbing, cyanosis. There is trace edema bilaterally. RECTAL: Deferred. 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 There was also a tubular adenoma in the ascending colon and this was removed. I did speak with the patient at length today regarding his stool patterns and bleeding. 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 Although, this has been noticed on several colonoscopies in the past, he does not recall anyone suggesting that it was treated by anticoagulation therapy. The dark stools that he experienced recently are a newer phenomenon and may reflect the gastric antral vascular ectasia mentioned above. On imaging studies during this hospitalization, the patient underwent a CT scan and reports a study that is stable compared to March 2012, there were hyperdensities in the hepatic lobes that are stable and there is a nonobstructive bowel pattern. I believe a repeat esophagogastroduodenoscopy in approximately 4-6 weeks to apply additional therapy to the gastric antral vascular ectasia is reasonable and this will be arranged as an outpatient. We will also follow with him as an outpatient in GI clinic over the next few weeks. At some point, particularly if there are 2 bleeding sources suspected (proctopathy and gastric antral vascular ectasia that argon plasma coagulation application to the radiation proctopathy serially) may be of benefit to reduce the dual source of GI blood loss. The patient since admission has received 3 units of packed red blood cells, the last being yesterday at 9:00 a.m. We will follow with you until discharge or stable. In the meantime, we will make arrangements for outpatient esophagogastroduodenoscopy for ablation of gastric antral vascular ectasia and further consideration for flexible sigmoidoscopy and treatment of radiation proctopathy.
--- NOTE | 2017-11-26 18:14 | Family Medicine Progress Note ---
Progress Note Date of Service Nov 26, 2017. Subjective Pt evaluation today including: conversation w/ patient, physical exam, chart review, lab review, review of studies, review of inpatient medication list Pain: Denies pain PO Intake: Tolerating well Voiding: voiding difficulty Patient is feeling better than he was yesterday. In good spirits. Has questions regarding the afib. Reports he had BM this AM and states no blood, normal color. Constitutional: No fever, No chills, No sweats, No weight loss, No weakness , No fatigue, No problem reported Respiratory: No cough, No sputum, No wheezing, No shortness of breath, No dyspnea on exertion, No dyspnea at rest, No hemoptysis, No problem reported Cardiovascular: No chest pain, No orthopnea, No PND, No edema, No claudication, No palpitations, No problem reported Abdomen: No pain, No nausea, No vomiting, No diarrhea, No constipation, No GI bleeding, No problem reported Skin: + problem reported (Chronic venous stasis changes to lower limbs) All Other Systems: Reviewed and Negative Medications Current Inpatient Medications Medications (Trade) Dose Ordered Sig/Kelsie Route Start Time Stop Time Status Last Admin Dose Admin Al Hydrox/Mg Hydrox/Simethicone (Maalox Max Susp) 15 ml Q4H PRN PO 11/22/17 23:30 12/22/17 23:29 Magnesium Hydroxide (Milk Of Magnesia Susp) 30 ml Q12H PRN PO 11/22/17 23:30 12/22/17 23:29 Ondansetron HCl (Zofran Inj) 4 mg Q6H PRN IV 11/22/17 23:30 12/22/17 23:29 Polyethylene (Miralax Powder Packet) 17 gm DAILY PRN PO 11/22/17 23:30 12/22/17 23:29 Amlodipine Besylate (Norvasc Tab) 5 mg QAM PO 11/23/17 09:00 12/23/17 08:59 11/26/17 07:31 5 MG Calcium Acetate (Phoslo Cap) 667 mg TIDM PRN PO 11/23/17 07:30 12/23/17 07:29 Docusate Sodium (coLACE CAP) 100 mg BID PO 11/23/17 09:00 12/23/17 08:59 11/26/17 07:30 100 MG Folic Acid (Folvite Tab) 1 mg DAILY PO 11/23/17 09:00 12/23/17 08:59 11/26/17 07:30 1 MG Insulin Aspart Prota 70%/Aspart 30% (novoLOG MIX 70/ 30) 58 units QDB SC 11/23/17 07:30 12/23/17 07:29 Metoprolol Tartrate (Lopressor Tab) 25 mg HS PO 11/23/17 21:00 12/23/17 20:59 11/25/17 20:51 25 MG Metoprolol Tartrate (Lopressor Tab) 50 mg QAM PO 11/23/17 09:00 12/23/17 08:59 11/26/17 07:30 50 MG Multivitamins/ Minerals (Multivitamin W/ Minerals Tab) 1 tab DAILY PO 11/23/17 09:00 12/23/17 08:59 11/26/17 07:35 1 TAB Pravastatin Sodium (Pravachol Tab) 40 mg QPM PO 11/23/17 21:00 12/23/17 20:59 11/25/17 20:51 40 MG Insulin Aspart Prota 70%/Aspart 30% (novoLOG MIX 70/ 30) 62 units QDD SC 11/23/17 16:45 12/23/17 16:44 11/25/17 18:24 62 UNITS Insulin Aspart (novoLOG ASPART) SLIDING SCALE G... ACHS FL 11/23/17 07:00 12/23/17 06:59 11/26/17 11:58 4 UNITS Calcium Acetate (Phoslo Cap) 1,334 mg TIDM PO 11/23/17 07:30 12/23/17 07:29 11/26/17 07:31 1,334 MG Glucose (Glucose 40% Gel) 15-30 GRAMS 15 GRAMS... UD PRN PO 11/23/17 01:30 12/23/17 01:29 Glucose (Glucose Chew Tab) 4-8 Tablets 4 Tabl... UD PRN PO 11/23/17 01:30 12/23/17 01:29 Dextrose (Dextrose 50% 50ML Syringe) 25-50ML OF 50% DW IV FOR... UD PRN IV 11/23/17 01:30 12/23/17 01:29 Glucagon (Glucagon Inj) 1 mg UD PRN SQ 11/23/17 01:30 12/23/17 01:29 Metoprolol Tartrate (Lopressor Iv) 5 mg Q4 PRN IV 11/23/17 02:00 12/22/17 23:29 Pantoprazole Sodium (Protonix Tab) 40 mg BID PO 11/23/17 11:30 12/23/17 11:29 11/26/17 07:30 40 MG Objective Vital Signs Date Time Temp Pulse Resp B/P (MAP) Pulse Ox O2 Delivery O2 Flow Rate FiO2 11/26/17 15:16 36.9 66 20 123/47 (72) 98 Nasal Cannula 11/26/17 13:19 36.8 61 20 118/45 (69) 97 Room Air 11/26/17 12:00 Room Air 11/26/17 08:00 Room Air 11/26/17 07:01 36.7 67 20 134/62 (86) 97 Room Air 11/26/17 04:06 36.6 103 18 115/53 (73) 96 Room Air 11/26/17 04:00 Room Air 11/26/17 00:00 Room Air 11/25/17 23:50 36.8 71 16 129/62 (84) 99 11/25/17 20:00 Room Air 11/25/17 19:03 36.8 74 20 118/52 (74) 97 Room Air Physical Exam General Appearance: WD/WN, no apparent distress Eyes: normal inspection, PERRL, EOMI, sclerae normal ENT: normal ENT inspection, hearing grossly normal Neck: supple, no adenopathy, no JVD, no carotid bruits, trachea midline Respiratory/Chest: chest non-tender, lungs clear, normal breath sounds, no respiratory distress, no accessory muscle use Cardiovascular: regular rate, rhythm, no edema, no gallop, no JVD, no murmur Abdomen: normal bowel sounds, non tender, soft Extremities: non-tender, no calf tenderness, + pertinent finding (chronic venous stasis/cellulitic changes) Neurologic/Psychiatric: 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, alert, normal mood/affect, oriented x 3, + pertinent finding (peripheral pedal neuropathy) Skin: normal color, warm/dry Laboratory Results Last Resulted 11/26/17 05:12 Red Blood Count 2.57, Mean Corpuscular Volume 92.6, Mean Corpuscular Hemoglobin 30.7, Mean Corpuscular Hemoglobin Concent 33.2, Mean Platelet Volume 9.1, Neutrophils (%) (Auto) 71.1, Lymphocytes (%) (Auto) 18.8, Monocytes (%) (Auto) 8.6, Eosinophils (%) (Auto) 1.3, Basophils (%) (Auto) 0.0, Neutrophils # (Auto) 3.20, Lymphocytes # (Auto) 0.85, Monocytes # (Auto) 0.39, Eosinophils # (Auto) 0.06, Basophils # (Auto) 0.00 11/26/17 16:13 Last Resulted 11/26/17 05:12 Assessment and Plan Mr. 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 Was found to have a hgb of 7.1 and has been having dark stools. 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 Currently feeling well although if his Hgb drops any further or he experiences weakness/fatigue, will transfuse - follow H&H and transfuse as needed. Hgb 7.9 this AM, rechecked this afternoon and vish to 9.9. Continue to monitor - GI consulted - - unclear whether upper or lower GI bleeding or both - continue PPI ( pantoprazole 40mg BID) - EGD shows possible source of bleeding; cautery performed; colonoscopy showed internal hemorrhoids and radiation proctitis but was not great prep EKG Changes - initial EKG read was atrial fibrillation, however patient was never in atrial fibrillation, but rather sinus rhythm w/PACs - continue to monitor - Discussion had with patient regarding risks/benefits of treating afib vs risk with anticoag. Not currently candidate for anticoag - No afib overnight, one run of possible afib/ PACs with rate <100 at 6 pm yesterday ESRD with dialysis - Dialysis on Mon, Sat and Satd - monitor I/O's - thank you to nephro for consult - volume status and electrolyte balance acceptable - no need for urgent HD, will resume HD as per schedule - monitor BMP, avoid IVF, dose meds to GFR <10 - hold home meds DM2 - last Hba1c was 5.6 in August - continue home regimen of 70/30 insulin - continue ISS - check blood sugars [facility] HTN - continue home metoprolol and amlodipine HLD - continue statin Hx of prostate CA - local to prostate, had prostatectomy - no recurrence since Pulmonary nodules - lesions noted in lungs on CT scan -> increasing in size since scan in 2012. He is aware of these and used to follow with Dr. Jackson - will require outpatient f/u and monitoring DVT prophylaxis: contraindicated due to GI bleed, no SCD due to venous skin changes Code: Full code, no mechanical vent or cardioversion Disposition: remains on telemetry Resident Tracking Resident Involvement: Resident Care Provided Care Provided: Adult Hospital Medicine
[2017-11-26 19:16] VITALS: BP 137/52; PULSE 70; TEMP 36.6; O2SAT 98
[2017-11-26] MEDS: PRAVASTATIN SOD 40 MG TAB PO SCH (19:52)
[2017-11-27] VITALS (27 sets, daily range): BP systolic 118–155; BP diastolic 51–87; PULSE 59–106; TEMP 36.3–37.1; O2SAT 94–98; Ht 175.3 cm; Wt 90.9 kg
[2017-11-27 05:31] LABS: HEMATOCRIT 23.4 % (42-52); HEMOGLOBIN 7.8 g/dL (14.0-18.0); MEAN CELL VOLUME 92.1 fL (80-100); MEAN CORPUSCULAR HEMOGLOBIN 30.7 pg (25-34); MEAN CORPUSCULAR HGB CONC 33.3 g/dl (32-36); RED CELL DISTRIBUTION WIDTH CV 18.5 % (11.5-14.5); RED CELL DISTRIBUTION WIDTH SD 60.3 fL (36.4-46.3); WHITE BLOOD COUNT 5.49 K/uL (4.8-10.8)
[2017-11-27 05:48] LABS: MEAN PLATELET VOLUME 8.8 fL (7.4-10.4); PLATELET COUNT 80 K/uL (130-400)
[2017-11-27 06:09] LABS: CALCIUM 6.9 mg/dl (8.5-10.1); CREATININE 7.64 mg/dl (0.60-1.40); POTASSIUM 4.5 mmol/L (3.5-5.1)
[2017-11-27] MEDS: CALCIUM ACETATE 667MG GELCAP PO SCH ×3 (07:30→17:34)
[2017-11-27] MEDS: INSULIN ASPART 100 UNITS/ML 3 ML PEN SC SCH ×4 (08:16→21:00)
[2017-11-27] MEDS: INSULIN 70% ASPART PROTAMINE/30% ASPART SC SCH ×2 (08:17→17:31)
[2017-11-27] MEDS: METOPROLOL TARTRATE 25 MG TAB PO SCH ×2 (08:24→21:41)
[2017-11-27] MEDS: CEROVITE ADV FORMULA TAB PO SCH (08:24)
[2017-11-27] MEDS: DOCUSATE SODIUM 100 MG CAP PO SCH ×2 (08:25→21:41)
[2017-11-27] MEDS: AMLODIPINE BESYLATE 5 MG TAB PO SCH (08:25)
[2017-11-27] MEDS: PANTOprazole SOD 40 MG TAB PO SCH ×2 (08:26→21:40)
--- NOTE | 2017-11-27 12:12 | Nephrology Progress Note ---
Nephrology Progress Note Date of Service Nov 27, 2017. Chief Complaint Follow-up for end-stage renal disease on hemodialysis. Rosa Maria Felix was seen and examined this morning. Overall he has been feeling well. His hemoglobin dropped again to 7.8 and noticed episodes of black stool. BP stable. Tolerating HD well. Review of Systems A complete review of systems was performed. Pertinent positives are noted above. All other systems are negative. Vital Signs Last 8 Hrs Date Time Temp Pulse Resp B/P (MAP) Pulse Ox O2 Delivery O2 Flow Rate FiO2 11/27/17 12:00 69 135/69 11/27/17 11:45 81 123/69 11/27/17 11:30 63 153/53 11/27/17 11:15 65 136/60 11/27/17 11:00 59 119/72 11/27/17 10:45 67 118/53 11/27/17 10:30 59 118/59 11/27/17 10:15 66 126/57 11/27/17 10:00 68 129/51 11/27/17 09:45 68 133/56 11/27/17 09:30 65 130/54 11/27/17 09:15 64 132/55 11/27/17 08:54 68 139/68 11/27/17 08:00 98 Room Air 11/27/17 07:43 36.6 69 16 155/64 (94) 98 Room Air 11/27/17 04:38 37.0 68 16 135/62 (86) 94 Last Recorded Weight Weight (Kilograms): 92.600 Physical Exam GENERAL: Elderly male, AAA x 3, pleasant, healthy-appearing, not in any distress. NECK: Supple, no JVD. RESPIRATORY: Normal breathing efforts, no accessory muscle use, clear to auscultation bilaterally, no wheezes or rales. CARDIOVASCULAR: S1, S2 normal, rate rhythm regular. EXTREMITY: No lower extremity edema NEURO: speech fluent. PSYCHIATRY: Normal mood and judgment Family History Patient reports no known family medical history. Negative for CKD/ESRD Social History Smokeless Tobacco Use: No Alcohol Use: none Drug Use: none Marital Status: Housing Status: lives with family Occupation: retired . Retired. Never a smoker Laboratory Results Past 24 Hours 11/26/17 16:13 11/27/17 05:15 11/27/17 05:15 Test 11/26/17 16:29 11/26/17 20:44 11/27/17 00:51 11/27/17 01:06 Bedside Glucose 149 mg/dl (70-99) 140 mg/dl (70-99) 52 mg/dl (70-99) 56 mg/dl (70-99) Test 11/27/17 01:22 11/27/17 01:39 11/27/17 05:15 11/27/17 06:33 Bedside Glucose 78 mg/dl (70-99) 103 mg/dl (70-99) 99 mg/dl (70-99) Red Blood Count 2.54 M/uL (4.7-6.1) Mean Corpuscular Volume 92.1 fL (80-100) Mean Corpuscular Hemoglobin 30.7 pg (25-34) Mean Corpuscular Hemoglobin Concent 33.3 g/dl (32-36) RDW Standard Deviation 60.3 fL (36.4-46.3) RDW Coefficient of Variation 18.5 % (11.5-14.5) Mean Platelet Volume 8.8 fL (7.4-10.4) Anion Gap 10.0 mmol/L (3-11) Est Creatinine Clear Calc Drug Dose 8.2 ml/min Estimated GFR () 6.9 Estimated GFR (Non- 5.9 BUN/Creatinine Ratio 8.4 (10-20) Calcium Level 6.9 mg/dl (8.5-10.1) Allergies Coded Allergies: Clarithromycin (Verified Adverse Reaction, Intermediate, confusion, 11/14/17 ) Fish Oil (Verified Adverse Reaction, Intermediate, hx of hemorrage in past , 11/14/17) Sulfa Antibiotics (Verified Adverse Reaction, Intermediate, SEVERE AGITATION/DELIRIUM, 11/14/17) Medications Current Inpatient Medications Medications (Trade) Dose Ordered Sig/Kelsie Route Start Time Stop Time Status Last Admin Dose Admin Al Hydrox/Mg Hydrox/Simethicone (Maalox Max Susp) 15 ml Q4H PRN PO 11/22/17 23:30 12/22/17 23:29 Magnesium Hydroxide (Milk Of Magnesia Susp) 30 ml Q12H PRN PO 11/22/17 23:30 12/22/17 23:29 Ondansetron HCl (Zofran Inj) 4 mg Q6H PRN IV 11/22/17 23:30 12/22/17 23:29 Polyethylene (Miralax Powder Packet) 17 gm DAILY PRN PO 11/22/17 23:30 12/22/17 23:29 Amlodipine Besylate (Norvasc Tab) 5 mg QAM PO 11/23/17 09:00 12/23/17 08:59 11/27/17 08:25 5 MG Calcium Acetate (Phoslo Cap) 667 mg TIDM PRN PO 11/23/17 07:30 12/23/17 07:29 Docusate Sodium (coLACE CAP) 100 mg BID PO 11/23/17 09:00 12/23/17 08:59 11/27/17 08:25 100 MG Folic Acid (Folvite Tab) 1 mg DAILY PO 11/23/17 09:00 12/23/17 08:59 11/27/17 08:25 1 MG Insulin Aspart Prota 70%/Aspart 30% (novoLOG MIX 70/ 30) 58 units QDB SC 11/23/17 07:30 12/23/17 07:29 Metoprolol Tartrate (Lopressor Tab) 25 mg HS PO 11/23/17 21:00 12/23/17 20:59 11/26/17 19:51 25 MG Metoprolol Tartrate (Lopressor Tab) 50 mg QAM PO 11/23/17 09:00 12/23/17 08:59 11/27/17 08:24 50 MG Multivitamins/ Minerals (Multivitamin W/ Minerals Tab) 1 tab DAILY PO 11/23/17 09:00 12/23/17 08:59 11/27/17 08:24 1 TAB Pravastatin Sodium (Pravachol Tab) 40 mg QPM PO 11/23/17 21:00 12/23/17 20:59 11/26/17 19:52 40 MG Insulin Aspart Prota 70%/Aspart 30% (novoLOG MIX 70/ 30) 62 units QDD SC 11/23/17 16:45 12/23/17 16:44 11/26/17 17:46 62 UNITS Insulin Aspart (novoLOG ASPART) SLIDING SCALE G... ACHS SC 11/23/17 07:00 12/23/17 06:59 11/26/17 17:44 7 UNITS Calcium Acetate (Phoslo Cap) 1,334 mg TIDM PO 11/23/17 07:30 12/23/17 07:29 11/26/17 17:47 1,334 MG Glucose (Glucose 40% Gel) 15-30 GRAMS 15 GRAMS... UD PRN PO 11/23/17 01:30 12/23/17 01:29 Glucose (Glucose Chew Tab) 4-8 Tablets 4 Tabl... UD PRN PO 11/23/17 01:30 12/23/17 01:29 Dextrose (Dextrose 50% 50ML Syringe) 25-50ML OF 50% DW IV FOR... 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 -- Protect L arm AVF -- 1 unit of PRBC with dialysis -- On PPI therapy --avoid IV fluid, dose meds for GFR < 10
--- NOTE | 2017-11-27 17:20 | Family Medicine Progress Note ---
Progress Note Date of Service Nov 27, 2017. Subjective Pt evaluation today including: conversation w/ patient, physical exam, chart review, lab review, review of studies Pain: Patient denies pain at this time. PO Intake: tolerating well Voiding: voiding difficulty Patient continues to feel well, no complaints; states he had BM today which was dark colored Constitutional: No fever, No chills, No sweats, No weight loss, No weakness , No fatigue, No problem reported Respiratory: No cough, No sputum, No wheezing, No shortness of breath, No dyspnea on exertion, No dyspnea at rest, No hemoptysis, No problem reported Abdomen: + GI bleeding (dark stool this AM) All Other Systems: Reviewed and Negative Medications Current Inpatient Medications Medications (Trade) Dose Ordered Sig/Kelsie Route Start Time Stop Time Status Last Admin Dose Admin Al Hydrox/Mg Hydrox/Simethicone (Maalox Max Susp) 15 ml Q4H PRN PO 11/22/17 23:30 12/22/17 23:29 Magnesium Hydroxide (Milk Of Magnesia Susp) 30 ml Q12H PRN PO 11/22/17 23:30 12/22/17 23:29 Ondansetron HCl (Zofran Inj) 4 mg Q6H PRN IV 11/22/17 23:30 12/22/17 23:29 Polyethylene (Miralax Powder Packet) 17 gm DAILY PRN PO 11/22/17 23:30 12/22/17 23:29 Amlodipine Besylate (Norvasc Tab) 5 mg QAM PO 11/23/17 09:00 12/23/17 08:59 11/27/17 08:25 5 MG Calcium Acetate (Phoslo Cap) 667 mg TIDM PRN PO 11/23/17 07:30 12/23/17 07:29 Docusate Sodium (coLACE CAP) 100 mg BID PO 11/23/17 09:00 12/23/17 08:59 11/27/17 08:25 100 MG Folic Acid (Folvite Tab) 1 mg DAILY PO 11/23/17 09:00 12/23/17 08:59 11/27/17 08:25 1 MG Insulin Aspart Prota 70%/Aspart 30% (novoLOG MIX 70/ 30) 58 units QDB SC 11/23/17 07:30 12/23/17 07:29 Metoprolol Tartrate (Lopressor Tab) 25 mg HS PO 11/23/17 21:00 12/23/17 20:59 11/26/17 19:51 25 MG Metoprolol Tartrate (Lopressor Tab) 50 mg QAM PO 11/23/17 09:00 12/23/17 08:59 11/27/17 08:24 50 MG Multivitamins/ Minerals (Multivitamin W/ Minerals Tab) 1 tab DAILY PO 11/23/17 09:00 12/23/17 08:59 11/27/17 08:24 1 TAB Pravastatin Sodium (Pravachol Tab) 40 mg QPM PO 11/23/17 21:00 12/23/17 20:59 11/26/17 19:52 40 MG Insulin Aspart Prota 70%/Aspart 30% (novoLOG MIX 70/ 30) 62 units QDD SC 11/23/17 16:45 12/23/17 16:44 11/26/17 17:46 62 UNITS Insulin Aspart (novoLOG ASPART) SLIDING SCALE G... ACHS SC 11/23/17 07:00 12/23/17 06:59 11/26/17 17:44 7 UNITS Calcium Acetate (Phoslo Cap) 1,334 mg TIDM PO 11/23/17 07:30 12/23/17 07:29 11/26/17 17:47 1,334 MG Glucose (Glucose 40% Gel) 15-30 GRAMS 15 GRAMS... UD PRN PO 11/23/17 01:30 12/23/17 01:29 Glucose (Glucose Chew Tab) 4-8 Tablets 4 Tabl... UD PRN PO 11/23/17 01:30 12/23/17 01:29 Dextrose (Dextrose 50% 50ML Syringe) 25-50ML OF 50% DW IV FOR... UD PRN IV 11/23/17 01:30 12/23/17 01:29 Glucagon (Glucagon Inj) 1 mg UD PRN SQ 11/23/17 01:30 12/23/17 01:29 Metoprolol Tartrate (Lopressor Iv) 5 mg Q4 PRN IV 11/23/17 02:00 12/22/17 23:29 Pantoprazole Sodium (Protonix Tab) 40 mg BID PO 11/23/17 11:30 12/23/17 11:29 11/27/17 08:26 40 MG Objective Vital Signs Date Time Temp Pulse Resp B/P (MAP) Pulse Ox O2 Delivery O2 Flow Rate FiO2 11/27/17 14:55 36.3 71 18 146/51 (82) 97 Room Air 11/27/17 13:56 () 11/27/17 12:45 72 147/78 11/27/17 12:30 78 126/64 11/27/17 12:21 36.6 83 140/68 (92) 11/27/17 12:15 67 135/69 11/27/17 12:00 69 135/69 11/27/17 12:00 98 Room Air 11/27/17 11:45 81 123/69 11/27/17 11:30 63 153/53 11/27/17 11:15 65 136/60 11/27/17 11:00 59 119/72 11/27/17 10:45 67 118/53 11/27/17 10:30 59 118/59 11/27/17 10:15 66 126/57 11/27/17 10:00 68 129/51 11/27/17 09:45 68 133/56 11/27/17 09:30 65 130/54 11/27/17 09:15 64 132/55 11/27/17 08:54 68 139/68 11/27/17 08:45 36.6 72 145/63 (90) 11/27/17 08:00 98 Room Air 11/27/17 07:43 36.6 69 16 155/64 (94) 98 Room Air 11/27/17 04:38 37.0 68 16 135/62 (86) 94 11/27/17 04:00 Room Air 11/27/17 00:25 37.1 67 16 136/55 (82) 97 11/27/17 00:01 Room Air 11/26/17 20:00 Room Air 11/26/17 19:16 36.6 70 18 137/52 (80) 98 Room Air 11/26/17 16:00 Room Air Physical Exam General Appearance: WD/WN, no apparent distress Eyes: normal inspection, PERRL, EOMI, sclerae normal ENT: hearing grossly normal, pharynx normal Neck: no adenopathy, no JVD, no carotid bruits, trachea midline Respiratory/Chest: chest non-tender, no respiratory distress, no accessory muscle use, + decreased breath sounds (bibasilar) Cardiovascular: regular rate, rhythm, no edema, no gallop, no JVD, no murmur Abdomen: normal bowel sounds, non tender, soft Extremities: + pertinent finding (Chronic venous stasis bilat LL, venous fistula left upper extremity) 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, no motor/sensory deficits, alert, normal mood/affect, oriented x 3 Skin: normal color, warm/dry, + pertinent finding (chronic venous stasis of bilat LL) Laboratory Results Current Inpatient Medications Medications (Trade) Dose Ordered Sig/Kelsie Route Start Time Stop Time Status Last Admin Dose Admin Al Hydrox/Mg Hydrox/Simethicone (Maalox Max Susp) 15 ml Q4H PRN PO 11/22/17 23:30 12/22/17 23:29 Magnesium Hydroxide (Milk Of Magnesia Susp) 30 ml Q12H PRN PO 11/22/17 23:30 12/22/17 23:29 Ondansetron HCl (Zofran Inj) 4 mg Q6H PRN IV 11/22/17 23:30 12/22/17 23:29 Polyethylene (Miralax Powder Packet) 17 gm DAILY PRN PO 11/22/17 23:30 12/22/17 23:29 Amlodipine Besylate (Norvasc Tab) 5 mg QAM PO 11/23/17 09:00 12/23/17 08:59 11/27/17 08:25 5 MG Calcium Acetate (Phoslo Cap) 667 mg TIDM PRN PO 11/23/17 07:30 12/23/17 07:29 Docusate Sodium (coLACE CAP) 100 mg BID PO 11/23/17 09:00 12/23/17 08:59 11/27/17 08:25 100 MG Folic Acid (Folvite Tab) 1 mg DAILY PO 11/23/17 09:00 12/23/17 08:59 11/27/17 08:25 1 MG Metoprolol Tartrate (Lopressor Tab) 25 mg HS PO 11/23/17 21:00 12/23/17 20:59 11/26/17 19:51 25 MG Metoprolol Tartrate (Lopressor Tab) 50 mg QAM PO 11/23/17 09:00 12/23/17 08:59 11/27/17 08:24 50 MG Multivitamins/ Minerals (Multivitamin W/ Minerals Tab) 1 tab DAILY PO 11/23/17 09:00 12/23/17 08:59 11/27/17 08:24 1 TAB Pravastatin Sodium (Pravachol Tab) 40 mg QPM PO 11/23/17 21:00 12/23/17 20:59 11/26/17 19:52 40 MG Insulin Aspart (novoLOG ASPART) SLIDING SCALE G... ACHS SC 11/23/17 07:00 12/23/17 06:59 11/26/17 17:44 7 UNITS Calcium Acetate (Phoslo Cap) 1,334 mg TIDM PO 11/23/17 07:30 12/23/17 07:29 11/26/17 17:47 1,334 MG Glucose (Glucose 40% Gel) 15-30 GRAMS 15 GRAMS... UD PRN PO 11/23/17 01:30 12/23/17 01:29 Glucose (Glucose Chew Tab) 4-8 Tablets 4 Tabl... UD PRN PO 11/23/17 01:30 12/23/17 01:29 Dextrose (Dextrose 50% 50ML Syringe) 25-50ML OF 50% DW IV FOR... UD PRN IV 11/23/17 01:30 12/23/17 01:29 Glucagon (Glucagon Inj) 1 mg UD PRN SQ 11/23/17 01:30 12/23/17 01:29 Metoprolol Tartrate (Lopressor Iv) 5 mg Q4 PRN IV 11/23/17 02:00 12/22/17 23:29 Pantoprazole Sodium (Protonix Tab) 40 mg BID PO 11/23/17 11:30 12/23/17 11:29 11/27/17 08:26 40 MG Insulin Aspart Prota 70%/Aspart 30% (novoLOG MIX 70/ 30) 54 units QDB SC 11/28/17 07:30 12/23/17 07:29 Insulin Aspart Prota 70%/Aspart 30% (novoLOG MIX 70/ 30) 58 units QDD SC 11/27/17 16:45 12/23/17 16:44 Assessment and Plan Mr. 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 Was found to have a hgb of 7.1 and has been having dark stools. 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 Currently feeling well although if his Hgb drops any further or he experiences weakness/fatigue, will transfuse - follow H&H and transfuse as needed. Hgb 7.5 this AM, rechecked this afternoon and vish to 9.0 after 1 unit PRBCs during dialysis today. Continue to monitor - GI consulted - - unclear whether upper or lower GI bleeding or both - continue PPI ( pantoprazole 40mg BID) - EGD shows possible source of bleeding; cautery performed; colonoscopy showed internal hemorrhoids and radiation proctitis but was not great prep - Repeat EGD/colonoscopy in 4 weeks. Potentially sooner if hgb does not stabilize EKG Changes - initial EKG read was atrial fibrillation, however patient was never in atrial fibrillation, but rather sinus rhythm w/PACs - continue to monitor - Discussion had with patient regarding risks/benefits of treating afib vs risk without anticoag. Not currently candidate for anticoag. ESRD with dialysis - Dialysis on Sat, Sat and Saturday - monitor I/O's - thank you to nephro for consult - volume status and electrolyte balance acceptable - no need for urgent HD, will resume HD as per schedule - monitor BMP, avoid IVF, dose meds to GFR <10 - 1 unit transfused during dialysis today - hold home meds DM2 - last Hba1c was 5.6 in August - continue home regimen of 70/30 insulin - continue ISS - check blood sugars [facility] HTN - continue home metoprolol and amlodipine HLD - continue statin Hx of prostate CA - local to prostate, had prostatectomy - no recurrence since Pulmonary nodules - lesions noted in lungs on CT scan -> increasing in size since scan in 2013. He is aware of these and used to follow with Dr. Jackson - will require outpatient f/u and monitoring DVT prophylaxis: contraindicated due to GI bleed, no SCD due to venous skin changes Code: Full code, no mechanical vent or cardioversion Disposition: remains on telemetry Resident Tracking Resident Involvement: Resident Care Provided Care Provided: Adult Hospital Medicine
[2017-11-27 18:00] LABS: HEMATOCRIT 26.5 % (42-52)
[2017-11-27] MEDS: PRAVASTATIN SOD 40 MG TAB PO SCH (21:40)
[2017-11-28] VITALS (7 sets, daily range): BP systolic 129–160; BP diastolic 54–78; PULSE 63–86; TEMP 36.7–37; O2SAT 95–99
[2017-11-28 05:32] LABS: HEMATOCRIT 26.8 % (42-52); HEMOGLOBIN 8.7 g/dL (14.0-18.0); MEAN CELL VOLUME 93.1 fL (80-100); MEAN CORPUSCULAR HEMOGLOBIN 30.2 pg (25-34); MEAN CORPUSCULAR HGB CONC 32.5 g/dl (32-36); RED CELL DISTRIBUTION WIDTH CV 17.7 % (11.5-14.5); RED CELL DISTRIBUTION WIDTH SD 59.5 fL (36.4-46.3); WHITE BLOOD COUNT 4.66 K/uL (4.8-10.8)
[2017-11-28 05:53] LABS: MEAN PLATELET VOLUME 9.3 fL (7.4-10.4); PLATELET COUNT 86 K/uL (130-400)
[2017-11-28 06:22] LABS: CALCIUM 6.3 mg/dl (8.5-10.1); CREATININE 5.43 mg/dl (0.60-1.40); POTASSIUM 3.8 mmol/L (3.5-5.1)
[2017-11-28] MEDS: METOPROLOL TARTRATE 25 MG TAB PO SCH ×2 (08:10→21:38)
[2017-11-28] MEDS: CALCIUM ACETATE 667MG GELCAP PO SCH ×3 (08:10→16:54)
[2017-11-28] MEDS: AMLODIPINE BESYLATE 5 MG TAB PO SCH (08:10)
[2017-11-28] MEDS: CEROVITE ADV FORMULA TAB PO SCH (08:10)
[2017-11-28] MEDS: PANTOprazole SOD 40 MG TAB PO SCH ×2 (08:11→21:38)
[2017-11-28] MEDS: DOCUSATE SODIUM 100 MG CAP PO SCH ×2 (08:11→21:38)
[2017-11-28] MEDS: INSULIN ASPART 100 UNITS/ML 3 ML PEN SC SCH ×4 (08:13→21:41)
[2017-11-28] MEDS: INSULIN 70% ASPART PROTAMINE/30% ASPART SC SCH ×2 (08:14→16:45)
--- NOTE | 2017-11-28 10:11 | GASTROENTEROLOGY PROGRESS NOTE ---
DATE: 11/28/2017 The patient reports stools are very dark brown, although not melenic. He denies any nausea, vomiting. There is no bright red blood per rectum. His appetite is good. His vital signs are stable. Blood pressure 147/65, 97% on room air, respirations 20, heart rate 63, temperature 36.7. Nursing note reviewed. There are no descriptions of blood in output. The patient did receive a unit of packed red blood cells yesterday afternoon. Total blood products received are 4 units of packed red blood cells. His medications were reviewed and reconciled. He is on insulin, metoprolol, pravastatin, pantoprazole, amlodipine, Colace, folic acid, multivitamins and calcium. PHYSICAL EXAMINATION: GENERAL: The patient is awake, alert and oriented x3, sitting in the chair comfortably. HEENT: Sclerae anicteric. Conjunctivae moist. Oral mucosa moist. HEART: Normal S1, S2. LUNGS: Clear to auscultation. ABDOMEN: Protuberant, soft, nontender, nondistended, with good bowel sounds. EXTREMITIES: Without clubbing, cyanosis or edema. RECTAL: Deferred. IMPRESSION AND PLAN: Reports that the patient is still having dark appearing stools and hemoglobin today shows value of 8.7. Yesterday evening at approximately 1800, the patient's hemoglobin was 9, this was after receiving a unit of blood. Overall, it is unclear how much of this is reflecting oscillation due to hemodialysis, but if the overall trend is suggesting that there is ongoing bleeding, then an EGD push enteroscopy may be helpful to look for sources of bleeding other than those identified in the stomach earlier this week. 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 If the patient is to be discharged, then plans continue to be tentative outpatient upper endoscopy with additional treatment of GAVE in approximately 4-6 weeks. All questions were answered for the patient. We will tentatively make arrangements for EGD enteroscopy tomorrow; however, if the patient is discharged, this will be performed as an outpatient in a few weeks. [facility]
--- NOTE | 2017-11-28 12:13 | Nephrology Progress Note ---
Nephrology Progress Note Date of Service Nov 28, 2017. Chief Complaint Follow-up for end-stage renal disease on hemodialysis. Rosa Maria Felix was seen and examined this morning. Overall he has been feeling well. His hemoglobin stable at 8.7 after PRBC yesterday. BP stable. Review of Systems A complete review of systems was performed. Pertinent positives are noted above. All other systems are negative. Vital Signs Last 8 Hrs Date Time Temp Pulse Resp B/P (MAP) Pulse Ox O2 Delivery O2 Flow Rate FiO2 11/28/17 08:00 98 Room Air 11/28/17 07:08 36.7 63 20 147/65 (92) 97 Room Air 11/28/17 03:52 Room Air 11/28/17 03:33 36.7 67 17 131/55 (80) 95 Room Air Last Recorded Weight Weight (Kilograms): 93.400 Physical Exam GENERAL: elderly male, AAA x 3, pleasant, healthy-appearing, not in any distress. NECK: Supple, no JVD. RESPIRATORY: Normal breathing efforts, no accessory muscle use, clear to auscultation bilaterally, no wheezes or rales. CARDIOVASCULAR: S1, S2 normal, rate rhythm regular. EXTREMITY: No lower extremity edema NEURO: speech fluent. PSYCHIATRY: Normal mood and judgment Family History Patient reports no known family medical history. Negative for CKD/ESRD Social History Smokeless Tobacco Use: No Alcohol Use: none Drug Use: none Marital Status: Housing Status: lives with family Occupation: retired . Retired. Never a smoker Laboratory Results Past 24 Hours 11/27/17 17:47 11/28/17 05:16 11/28/17 05:16 Test 11/27/17 16:17 11/27/17 21:00 11/28/17 05:16 Bedside Glucose 161 mg/dl (70-99) 136 mg/dl (70-99) Red Blood Count 2.88 M/uL (4.7-6.1) Mean Corpuscular Volume 93.1 fL (80-100) Mean Corpuscular Hemoglobin 30.2 pg (25-34) Mean Corpuscular Hemoglobin Concent 32.5 g/dl (32-36) RDW Standard Deviation 59.5 fL (36.4-46.3) RDW Coefficient of Variation 17.7 % (11.5-14.5) Mean Platelet Volume 9.3 fL (7.4-10.4) Anion Gap 10.0 mmol/L (3-11) Est Creatinine Clear Calc Drug Dose 11.6 ml/min Estimated GFR () 10.4 Estimated GFR (Non- 9.0 BUN/Creatinine Ratio 6.9 (10-20) Calcium Level 6.3 mg/dl (8.5-10.1) Allergies Coded Allergies: Clarithromycin (Verified Adverse Reaction, Intermediate, confusion, 11/14/17 ) Fish Oil (Verified Adverse Reaction, Intermediate, hx of hemorrage in past , 11/14/17) Sulfa Antibiotics (Verified Adverse Reaction, Intermediate, SEVERE AGITATION/DELIRIUM, 11/14/17) Medications Current Inpatient Medications Medications (Trade) Dose Ordered Sig/Kelsie Route Start Time Stop Time Status Last Admin Dose Admin Al Hydrox/Mg Hydrox/Simethicone (Maalox Max Susp) 15 ml Q4H PRN PO 11/22/17 23:30 12/22/17 23:29 Magnesium Hydroxide (Milk Of Magnesia Susp) 30 ml Q12H PRN PO 11/22/17 23:30 12/22/17 23:29 Ondansetron HCl (Zofran Inj) 4 mg Q6H PRN IV 11/22/17 23:30 12/22/17 23:29 Polyethylene (Miralax Powder Packet) 17 gm DAILY PRN PO 11/22/17 23:30 12/22/17 23:29 Amlodipine Besylate (Norvasc Tab) 5 mg QAM PO 11/23/17 09:00 12/23/17 08:59 11/28/17 08:10 5 MG Calcium Acetate (Phoslo Cap) 667 mg TIDM PRN PO 11/23/17 07:30 12/23/17 07:29 Docusate Sodium (coLACE CAP) 100 mg BID PO 11/23/17 09:00 12/23/17 08:59 11/28/17 08:11 100 MG Folic Acid (Folvite Tab) 1 mg DAILY PO 11/23/17 09:00 12/23/17 08:59 11/28/17 08:11 1 MG Metoprolol Tartrate (Lopressor Tab) 25 mg HS PO 11/23/17 21:00 12/23/17 20:59 11/27/17 21:41 25 MG Metoprolol Tartrate (Lopressor Tab) 50 mg QAM PO 11/23/17 09:00 12/23/17 08:59 11/28/17 08:10 50 MG Multivitamins/ Minerals (Multivitamin W/ Minerals Tab) 1 tab DAILY PO 11/23/17 09:00 12/23/17 08:59 11/28/17 08:10 1 TAB Pravastatin Sodium (Pravachol Tab) 40 mg QPM PO 11/23/17 21:00 12/23/17 20:59 11/27/17 21:40 40 MG Insulin Aspart (novoLOG ASPART) SLIDING SCALE G... ACHS SC 11/23/17 07:00 12/23/17 06:59 11/28/17 08:13 4 UNITS Calcium Acetate (Phoslo Cap) 1,334 mg TIDM PO 11/23/17 07:30 12/23/17 07:29 11/28/17 08:10 1,334 MG Glucose (Glucose 40% Gel) 15-30 GRAMS 15 GRAMS... UD PRN PO 11/23/17 01:30 12/23/17 01:29 Glucose (Glucose Chew Tab) 4-8 Tablets 4 Tabl... UD PRN PO 11/23/17 01:30 12/23/17 01:29 Dextrose (Dextrose 50% 50ML Syringe) 25-50ML OF 50% DW IV FOR... 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
--- NOTE | 2017-11-28 17:49 | Family Medicine Progress Note ---
Progress Note Date of Service Nov 28, 2017. Subjective Pt evaluation today including: conversation w/ patient, physical exam, chart review, lab review, conversation w/ digital marketing consultant, review of inpatient medication list Pain: No pain reported PO Intake: Tolerating diet well Voiding: voiding difficulty (ESRD) Patient is feeling well today. He states that he did have a bowel movement that was dark this morning. Not as black as it was on admission but darker than yesterday Respiratory: No see HPI, No cough, No sputum, No wheezing, No shortness of breath, No dyspnea on exertion, No dyspnea at rest, No hemoptysis, No problem reported Cardiovascular: No chest pain, No orthopnea, No PND, No edema, No claudication, No palpitations, No problem reported Abdomen: + GI bleeding, No see HPI, No pain, No nausea, No vomiting, No diarrhea, No constipation, No problem reported Heme: + abnormal bleeding/bruising All Other Systems: Reviewed and Negative Medications Current Inpatient Medications Medications (Trade) Dose Ordered Sig/Kelsie Route Start Time Stop Time Status Last Admin Dose Admin Al Hydrox/Mg Hydrox/Simethicone (Maalox Max Susp) 15 ml Q4H PRN PO 11/22/17 23:30 12/22/17 23:29 Magnesium Hydroxide (Milk Of Magnesia Susp) 30 ml Q12H PRN PO 11/22/17 23:30 12/22/17 23:29 Ondansetron HCl (Zofran Inj) 4 mg Q6H PRN IV 11/22/17 23:30 12/22/17 23:29 Polyethylene (Miralax Powder Packet) 17 gm DAILY PRN PO 11/22/17 23:30 12/22/17 23:29 Amlodipine Besylate (Norvasc Tab) 5 mg QAM PO 11/23/17 09:00 12/23/17 08:59 11/28/17 08:10 5 MG Calcium Acetate (Phoslo Cap) 667 mg TIDM PRN PO 11/23/17 07:30 12/23/17 07:29 Docusate Sodium (coLACE CAP) 100 mg BID PO 11/23/17 09:00 12/23/17 08:59 11/28/17 08:11 100 MG Folic Acid (Folvite Tab) 1 mg DAILY PO 11/23/17 09:00 12/23/17 08:59 11/28/17 08:11 1 MG Metoprolol Tartrate (Lopressor Tab) 25 mg HS PO 11/23/17 21:00 12/23/17 20:59 11/27/17 21:41 25 MG Metoprolol Tartrate (Lopressor Tab) 50 mg QAM PO 11/23/17 09:00 12/23/17 08:59 11/28/17 08:10 50 MG Multivitamins/ Minerals (Multivitamin W/ Minerals Tab) 1 tab DAILY PO 11/23/17 09:00 12/23/17 08:59 11/28/17 08:10 1 TAB Pravastatin Sodium (Pravachol Tab) 40 mg QPM PO 11/23/17 21:00 12/23/17 20:59 11/27/17 21:40 40 MG Insulin Aspart (novoLOG ASPART) SLIDING SCALE G... ACHS SC 11/23/17 07:00 12/23/17 06:59 11/28/17 16:56 5 UNITS Calcium Acetate (Phoslo Cap) 1,334 mg TIDM PO 11/23/17 07:30 12/23/17 07:29 11/28/17 16:54 1,334 MG Glucose (Glucose 40% Gel) 15-30 GRAMS 15 GRAMS... UD PRN PO 11/23/17 01:30 12/23/17 01:29 Glucose (Glucose Chew Tab) 4-8 Tablets 4 Tabl... UD PRN PO 11/23/17 01:30 12/23/17 01:29 Dextrose (Dextrose 50% 50ML Syringe) 25-50ML OF 50% DW IV FOR... UD PRN IV 11/23/17 01:30 12/23/17 01:29 Glucagon (Glucagon Inj) 1 mg UD PRN SQ 11/23/17 01:30 12/23/17 01:29 Metoprolol Tartrate (Lopressor Iv) 5 mg Q4 PRN IV 11/23/17 02:00 12/22/17 23:29 Pantoprazole Sodium (Protonix Tab) 40 mg BID PO 11/23/17 11:30 12/23/17 11:29 11/28/17 08:11 40 MG Insulin Aspart Prota 70%/Aspart 30% (novoLOG MIX 70/ 30) 54 units QDB SC 11/28/17 07:30 12/23/17 07:29 Insulin Aspart Prota 70%/Aspart 30% (novoLOG MIX 70/ 30) 58 units QDD SC 11/27/17 16:45 12/23/17 16:44 Objective Vital Signs Date Time Temp Pulse Resp B/P (MAP) Pulse Ox O2 Delivery O2 Flow Rate FiO2 11/28/17 16:00 Room Air 11/28/17 15:20 37.0 65 18 142/78 (99) 99 Room Air 11/28/17 12:39 37.0 67 20 129/54 (79) 97 11/28/17 12:39 98 Room Air 11/28/17 08:00 98 Room Air 11/28/17 07:08 36.7 63 20 147/65 (92) 97 Room Air 11/28/17 03:52 Room Air 11/28/17 03:33 36.7 67 17 131/55 (80) 95 Room Air 11/27/17 23:15 Room Air 11/27/17 23:04 36.8 70 18 121/57 (78) 97 Room Air 11/27/17 21:38 106 127/63 (84) 11/27/17 19:25 Room Air 11/27/17 19:18 36.7 59 20 147/71 (96) 98 Room Air Physical Exam General Appearance: WD/WN, no apparent distress Eyes: normal inspection, PERRL, EOMI, sclerae normal ENT: hearing grossly normal, pharynx normal Neck: supple, no adenopathy, no JVD, no carotid bruits, trachea midline Respiratory/Chest: chest non-tender, lungs clear, normal breath sounds, no respiratory distress, no accessory muscle use Cardiovascular: regular rate, rhythm, no edema, no gallop, no JVD, no murmur Abdomen: normal bowel sounds, non tender, soft, no organomegaly, no pulsatile mass Extremities: normal range of motion, non-tender, no calf tenderness, + pertinent finding (chronic venous stasis changes to lower extremities) Neurologic/Psychiatric: 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 with worsening fatigue, shortness of breath and chest tightness on exertion. Was found to have a hgb of 7.1 and has been having dark stools. 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 Currently feeling well although if his Hgb drops any further or he experiences weakness/fatigue, will transfuse - follow H&H and transfuse as needed. 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 Potentially sooner if hgb does not stabilize - Patient reports continued dark stool. Will keep NPO from midnight and perform push enteroscopy tomorrow EKG Changes - initial EKG read was atrial fibrillation, however patient was never in atrial fibrillation, but rather sinus rhythm w/PACs - continue to monitor - Discussion had with patient regarding risks/benefits of treating afib vs risk without anticoag. Not currently candidate for anticoag. ESRD with dialysis - Dialysis on Sat, Sat and Saturday - monitor I/O's - thank you to nephro for consult - volume status and electrolyte balance acceptable - no need for urgent HD, will resume HD as per schedule - monitor BMP, avoid IVF, dose meds to GFR <10 - 1 unit transfused during dialysis yesterday - hold home meds DM2 - last Hba1c was 5.6 in August - continue home regimen of 70/30 insulin - continue ISS - check blood sugars [facility] HTN - continue home metoprolol and amlodipine HLD - continue statin Hx of prostate CA - local to prostate, had prostatectomy - no recurrence since Pulmonary nodules - lesions noted in lungs on CT scan -> increasing in size since scan in 2013. He is aware of these and used to follow with Dr. Jackson - will require outpatient f/u and monitoring DVT prophylaxis: contraindicated due to GI bleed, no SCD due to venous skin changes Code: Full code, no mechanical vent or cardioversion Disposition: remains on telemetry Resident Tracking Resident Involvement: Resident Care Provided Care Provided: Adult Hospital Medicine
[2017-11-28] MEDS: PRAVASTATIN SOD 40 MG TAB PO SCH (21:38)
[2017-11-29] VITALS (23 sets, daily range): BP systolic 126–162; BP diastolic 56–77; PULSE 59–86; TEMP 36.4–37.5; O2SAT 95–97
[2017-11-29] MEDS ORDERED: ACETAMINOPHEN 325 MG TAB ONE (03:27)
[2017-11-29] MEDS ORDERED: NURSING VERBAL MED ORDER ONE (03:30)
[2017-11-29 05:48] LABS: HEMATOCRIT 26.9 % (42-52); HEMOGLOBIN 9.1 g/dL (14.0-18.0); MEAN CELL VOLUME 91.5 fL (80-100); MEAN CORPUSCULAR HGB CONC 33.8 g/dl (32-36); RED CELL DISTRIBUTION WIDTH CV 17.2 % (11.5-14.5); RED CELL DISTRIBUTION WIDTH SD 56.2 fL (36.4-46.3); WHITE BLOOD COUNT 5.85 K/uL (4.8-10.8)
[2017-11-29 05:52] LABS: MEAN PLATELET VOLUME 9.4 fL (7.4-10.4); PLATELET COUNT 92 K/uL (130-400)
[2017-11-29 06:31] LABS: CREATININE 7.31 mg/dl (0.60-1.40); POTASSIUM 4.1 mmol/L (3.5-5.1)
[2017-11-29] MEDS: INSULIN ASPART 100 UNITS/ML 3 ML PEN SC SCH ×4 (07:00→21:08)
[2017-11-29] MEDS: CALCIUM ACETATE 667MG GELCAP PO SCH ×3 (07:30→17:09)
[2017-11-29] MEDS: INSULIN 70% ASPART PROTAMINE/30% ASPART SC SCH ×2 (07:30→16:45)
[2017-11-29] MEDS: PANTOprazole SOD 40 MG TAB PO SCH ×2 (08:50→20:09)
[2017-11-29] MEDS: CEROVITE ADV FORMULA TAB PO SCH (08:50)
[2017-11-29] MEDS: AMLODIPINE BESYLATE 5 MG TAB PO SCH (08:51)
[2017-11-29] MEDS: METOPROLOL TARTRATE 25 MG TAB PO SCH ×2 (08:51→20:13)
[2017-11-29] MEDS: DOCUSATE SODIUM 100 MG CAP PO SCH ×2 (08:51→20:10)
[2017-11-29] MEDS ORDERED: ACETAMINOPHEN 325 MG TAB PO ONE (09:30)
--- NOTE | 2017-11-29 12:03 | Dialysis Progress Note ---
Hemodialysis Note Date of Service Nov 29, 2017. Chief Complaint Follow-up for end-stage renal disease on hemodialysis. Rosa Maria Felix was seen and examined during dialysis this morning. He has been tolerating dialysis well. Hemoglobin remained stable, 9.1. Electrolyte acceptable. Blood pressure volume status acceptable. Review of Systems A complete review of systems was performed. Pertinent positives are noted above. All other systems are negative. Vital Signs Last 8 Hrs Date Time Temp Pulse Resp B/P (MAP) Pulse Ox O2 Delivery O2 Flow Rate FiO2 11/29/17 07:28 36.7 86 18 162/76 (104) 97 Room Air 11/29/17 04:00 Room Air 11/29/17 03:23 36.9 84 17 159/70 (99) 95 Room Air Last Recorded Weight Weight (Kilograms): 93.000 Physical Exam GENERAL: elderly male, AAA x 3, pleasant, healthy-appearing, not in any distress. NECK: Supple, no JVD. RESPIRATORY: Normal breathing efforts, no accessory muscle use, clear to auscultation bilaterally, no wheezes or rales. CARDIOVASCULAR: S1, S2 normal, rate rhythm regular. EXTREMITY: No lower extremity edema NEURO: speech fluent. PSYCHIATRY: Normal mood and judgment Family History Negative for CKD/ESRD Social History Smokeless Tobacco Use: No Alcohol Use: none Drug Use: none Marital Status: Housing Status: lives with family Occupation: retired . Retired. Never a smoker Laboratory Results Past 24 Hours 11/29/17 05:12 11/29/17 05:12 Test 11/28/17 11:04 11/28/17 16:30 11/28/17 20:07 11/28/17 21:42 Bedside Glucose 136 mg/dl (70-99) 139 mg/dl (70-99) 151 mg/dl (70-99) 139 mg/dl (70-99) Test 11/29/17 05:12 11/29/17 06:59 Red Blood Count 2.94 M/uL (4.7-6.1) Mean Corpuscular Volume 91.5 fL (80-100) Mean Corpuscular Hemoglobin 31.0 pg (25-34) Mean Corpuscular Hemoglobin Concent 33.8 g/dl (32-36) RDW Standard Deviation 56.2 fL (36.4-46.3) RDW Coefficient of Variation 17.2 % (11.5-14.5) Mean Platelet Volume 9.4 fL (7.4-10.4) Anion Gap 11.0 mmol/L (3-11) Est Creatinine Clear Calc Drug Dose 8.6 ml/min Estimated GFR () 7.2 Estimated GFR (Non- 6.3 BUN/Creatinine Ratio 7.7 (10-20) Calcium Level 7.0 mg/dl (8.5-10.1) Magnesium Level 2.1 mg/dl (1.8-2.4) Bedside Glucose 143 mg/dl (70-99) Allergies Coded Allergies: Clarithromycin (Verified Adverse Reaction, Intermediate, confusion, 11/14/17 ) Fish Oil (Verified Adverse Reaction, Intermediate, hx of hemorrage in past , 11/14/17) Sulfa Antibiotics (Verified Adverse Reaction, Intermediate, SEVERE AGITATION/DELIRIUM, 11/14/17) Medications Current Inpatient Medications Medications (Trade) Dose Ordered Sig/Kelsie Route Start Time Stop Time Status Last Admin Dose Admin Al Hydrox/Mg Hydrox/Simethicone (Maalox Max Susp) 15 ml Q4H PRN PO 11/22/17 23:30 12/22/17 23:29 Magnesium Hydroxide (Milk Of Magnesia Susp) 30 ml Q12H PRN PO 11/22/17 23:30 12/22/17 23:29 Ondansetron HCl (Zofran Inj) 4 mg Q6H PRN IV 11/22/17 23:30 12/22/17 23:29 Polyethylene (Miralax Powder Packet) 17 gm DAILY PRN PO 11/22/17 23:30 12/22/17 23:29 Amlodipine Besylate (Norvasc Tab) 5 mg QAM PO 11/23/17 09:00 12/23/17 08:59 11/28/17 08:10 5 MG Calcium Acetate (Phoslo Cap) 667 mg TIDM PRN PO 11/23/17 07:30 12/23/17 07:29 Docusate Sodium (coLACE CAP) 100 mg BID PO 11/23/17 09:00 12/23/17 08:59 11/28/17 21:38 100 MG Folic Acid (Folvite Tab) 1 mg DAILY PO 11/23/17 09:00 3/12/18 08:59 11/28/17 08:11 1 MG Metoprolol Tartrate (Lopressor Tab) 25 mg HS PO 11/23/17 21:00 12/23/17 20:59 11/28/17 21:38 25 MG Metoprolol Tartrate (Lopressor Tab) 50 mg QAM PO 11/23/17 09:00 12/23/17 08:59 11/28/17 08:10 50 MG Multivitamins/ Minerals (Multivitamin W/ Minerals Tab) 1 tab DAILY PO 11/23/17 09:00 12/23/17 08:59 11/28/17 08:10 1 TAB Pravastatin Sodium (Pravachol Tab) 40 mg QPM PO 11/23/17 21:00 12/23/17 20:59 11/28/17 21:38 40 MG Insulin Aspart (novoLOG ASPART) SLIDING SCALE G... ACHS SC 11/23/17 07:00 12/23/17 06:59 11/28/17 16:56 5 UNITS Calcium Acetate (Phoslo Cap) 1,334 mg TIDM PO 11/23/17 07:30 12/23/17 07:29 11/28/17 16:54 1,334 MG Glucose (Glucose 40% Gel) 15-30 GRAMS 15 GRAMS... UD PRN PO 11/23/17 01:30 12/23/17 01:29 Glucose (Glucose Chew Tab) 4-8 Tablets 4 Tabl... UD PRN PO 11/23/17 01:30 12/23/17 01:29 Dextrose (Dextrose 50% 50ML Syringe) 25-50ML OF 50% DW IV FOR... 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
--- NOTE | 2017-11-29 12:32 | Clinical Documentation Query ---
CLINICAL DOCUMENTATION QUERY , The diagnoses of acute blood loss anemia and gastric antral vascular ectasia (GAVE) have been documented in the clinical record by the GI staff progress notes/consult. These diagnoses have not been carried through to the medical attending progress notes. To avoid lead cook uncertainty, please continue to document these diagnoses throughout the medical record and discharge summary In your clinical opinion is this patient being managed for: ( x) Acute blood loss anemia ( ) GAVE likely cause of GI bleed ( ) Not Agree ( ) Other explanation of clinical findings (Please Explain) ( ) Unable to determine (Please Define) ( ) Need to Discuss Thank You, Marielena Valadez, RN [phone]
--- NOTE | 2017-11-29 12:33 | Clinical Documentation Query ---
CLINICAL DOCUMENTATION QUERY Dr. MUNOZ, The diagnoses of acute blood loss anemia and gastric antral vascular ectasia (GAVE) have been documented in the clinical record by the GI staff progress notes/consult. These diagnoses have not been carried through to the medical attending progress notes. 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
[2017-11-29] MEDS ORDERED: PROPOFOL IV EMULSION 10 MG/ML 20 ML VIAL IV ONE (13:57)
[2017-11-29] MEDS ORDERED: LIDOCAINE HCL 2% 2 ML VIAL (20MG/ML) ONE (13:57)
--- NOTE | 2017-11-29 15:10 | Gastroenterology Progress Note ---
Progress Note Date of Service: Nov 29, 2017 Subjective Pt evaluation today including: conversation w/ patient, physical exam, chart review, lab review, review of studies, review of inpatient medication list CC f/u GI bleeding HPI Some ongoing dark stools although patient says not as dark as before. No abd pain Review of Systems Respiratory: No shortness of breath Cardiac: No chest pain Medications Current Inpatient Medications Medications (Trade) Dose Ordered Sig/Kelsie Route Start Time Stop Time Status Last Admin Dose Admin Al Hydrox/Mg Hydrox/Simethicone (Maalox Max Susp) 15 ml Q4H PRN PO 11/22/17 23:30 12/22/17 23:29 Magnesium Hydroxide (Milk Of Magnesia Susp) 30 ml Q12H PRN PO 11/22/17 23:30 12/22/17 23:29 Ondansetron HCl (Zofran Inj) 4 mg Q6H PRN IV 11/22/17 23:30 12/22/17 23:29 Polyethylene (Miralax Powder Packet) 17 gm DAILY PRN PO 11/22/17 23:30 12/22/17 23:29 Amlodipine Besylate (Norvasc Tab) 5 mg QAM PO 11/23/17 09:00 12/23/17 08:59 11/29/17 08:51 5 MG Calcium Acetate (Phoslo Cap) 667 mg TIDM PRN PO 11/23/17 07:30 12/23/17 07:29 Docusate Sodium (coLACE CAP) 100 mg BID PO 11/23/17 09:00 12/23/17 08:59 11/29/17 08:51 100 MG Folic Acid (Folvite Tab) 1 mg DAILY PO 11/23/17 09:00 12/23/17 08:59 11/29/17 08:50 1 MG Metoprolol Tartrate (Lopressor Tab) 25 mg HS PO 11/23/17 21:00 12/23/17 20:59 11/28/17 21:38 25 MG Metoprolol Tartrate (Lopressor Tab) 50 mg QAM PO 11/23/17 09:00 12/23/17 08:59 11/29/17 08:51 50 MG Multivitamins/ Minerals (Multivitamin W/ Minerals Tab) 1 tab DAILY PO 11/23/17 09:00 12/23/17 08:59 11/29/17 08:50 1 TAB Pravastatin Sodium (Pravachol Tab) 40 mg QPM PO 11/23/17 21:00 12/23/17 20:59 11/28/17 21:38 40 MG Insulin Aspart (novoLOG ASPART) SLIDING SCALE G... ACHS SC 11/23/17 07:00 12/23/17 06:59 11/28/17 16:56 5 UNITS Calcium Acetate (Phoslo Cap) 1,334 mg TIDM PO 11/23/17 07:30 12/23/17 07:29 11/28/17 16:54 1,334 MG Glucose (Glucose 40% Gel) 15-30 GRAMS 15 GRAMS... UD PRN PO 11/23/17 01:30 12/23/17 01:29 Glucose (Glucose Chew Tab) 4-8 Tablets 4 Tabl... UD PRN PO 11/23/17 01:30 12/23/17 01:29 Dextrose (Dextrose 50% 50ML Syringe) 25-50ML OF 50% DW IV FOR... UD PRN IV 11/23/17 01:30 12/23/17 01:29 Glucagon (Glucagon Inj) 1 mg UD PRN SQ 11/23/17 01:30 12/23/17 01:29 Metoprolol Tartrate (Lopressor Iv) 5 mg Q4 PRN IV 11/23/17 02:00 12/22/17 23:29 Pantoprazole Sodium (Protonix Tab) 40 mg BID PO 11/23/17 11:30 12/23/17 11:29 11/29/17 08:50 40 MG Insulin Aspart Prota 70%/Aspart 30% (novoLOG MIX 70/ 30) 54 units QDB SC 11/28/17 07:30 12/23/17 07:29 Insulin Aspart Prota 70%/Aspart 30% (novoLOG MIX 70/ 30) 58 units QDD SC 11/27/17 16:45 12/23/17 16:44 Objective Vital Signs Date Time Temp Pulse Resp B/P (MAP) Pulse Ox O2 Delivery O2 Flow Rate FiO2 11/29/17 15:02 36.8 70 20 159/73 (101) 96 Room Air 11/29/17 13:45 73 129/66 11/29/17 13:30 68 131/73 11/29/17 13:15 62 147/77 11/29/17 13:00 65 140/69 11/29/17 12:45 60 147/75 11/29/17 12:30 66 133/71 11/29/17 12:15 64 146/71 11/29/17 12:00 79 130/66 11/29/17 12:00 Room Air 11/29/17 11:45 66 145/56 11/29/17 11:30 61 145/58 11/29/17 11:15 65 157/69 11/29/17 11:00 61 148/68 11/29/17 10:45 59 139/69 11/29/17 10:30 64 132/67 11/29/17 10:15 59 132/70 11/29/17 10:00 64 151/77 11/29/17 09:48 78 126/64 11/29/17 08:00 Room Air 11/29/17 07:28 36.7 86 18 162/76 (104) 97 Room Air 11/29/17 04:00 Room Air 11/29/17 03:23 36.9 84 17 159/70 (99) 95 Room Air 11/29/17 00:01 Room Air 11/28/17 23:50 36.7 86 17 156/71 (99) 96 Room Air 11/28/17 20:00 36.7 73 20 160/72 (101) 98 Room Air 11/28/17 20:00 Room Air 11/28/17 16:00 Room Air 11/28/17 15:20 37.0 65 18 142/78 (99) 99 Room Air Physical Exam General Appearance: WD/WN, no apparent distress Respiratory/Chest: lungs clear, no respiratory distress Cardiovascular: regular rate, rhythm, no edema Abdomen: normal bowel sounds, non tender, soft, no organomegaly, no pulsatile mass Neurologic/Psych: alert, normal mood/affect, oriented x 3 Skin: normal color, warm/dry Laboratory Results Last 24 Hours Test 11/28/17 16:30 11/28/17 20:07 11/28/17 21:42 11/29/17 05:12 Bedside Glucose 139 mg/dl 151 mg/dl 139 mg/dl White Blood Count 5.85 K/uL Red Blood Count 2.94 M/uL Hemoglobin 9.1 g/dL Hematocrit 26.9 % Mean Corpuscular Volume 91.5 fL Mean Corpuscular Hemoglobin 31.0 pg Mean Corpuscular Hemoglobin Concent 33.8 g/dl RDW Standard Deviation 56.2 fL RDW Coefficient of Variation 17.2 % Platelet Count 92 K/uL Mean Platelet Volume 9.4 fL Sodium Level 134 mmol/L Potassium Level 4.1 mmol/L Chloride Level 98 mmol/L Carbon Dioxide Level 26 mmol/L Anion Gap 11.0 mmol/L Blood Urea Nitrogen 56 mg/dl Creatinine 7.31 mg/dl Est Creatinine Clear Calc Drug Dose 8.6 ml/min Estimated GFR () 7.2 Estimated GFR (Non- 6.3 BUN/Creatinine Ratio 7.7 Random Glucose 158 mg/dl Calcium Level 7.0 mg/dl Magnesium Level 2.1 mg/dl Test 11/29/17 06:59 Bedside Glucose 143 mg/dl Assessment and Plan Acute blood loss anemia--follow H and H and transfuse as needed GI bleeding--melena and rectal bleeding-- 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 duodenal lesions on EGD 11/25/17-although superficial path negative still worried these could be pathologic. Depending on EGD findings may rebiopsy today hx of colon polyps--colo 11/25/17 showed tubular adenoma of ascending colon Other problems per hospitalist afib, ESRD on dialysis. , DM, HTN
[2017-11-29] MEDS ORDERED: ATROPINE SULFATE 0.1 MG/ML 5ML SYR IV PRN (15:45)
[2017-11-29] MEDS ORDERED: EpHEDrine SULFATE INJ 50 MG/ML AMP IV PRN (15:45)
[2017-11-29] MEDS ORDERED: GLYCOPYRROLATE INJ 0.2 MG/ML VIAL ONE (16:05)
--- NOTE | 2017-11-29 16:18 | Anesthesiology Progress Note ---
Anesthesia Post Op Note Date & Time Nov 29, 2017 at 16:18 Vital Signs Pain Intensity: 0 Vital Signs Past 12 Hours Date Time Temp Pulse Resp B/P (MAP) Pulse Ox O2 Delivery O2 Flow Rate FiO2 11/29/17 16:09 82 18 133/55 (81) 99 Room Air 11/29/17 15:02 36.8 70 20 159/73 (101) 96 Room Air 11/29/17 14:15 36.6 77 130/63 (85) 11/29/17 13:45 73 129/66 11/29/17 13:30 68 131/73 11/29/17 13:15 62 147/77 11/29/17 13:00 65 140/69 11/29/17 12:45 60 147/75 11/29/17 12:30 66 133/71 11/29/17 12:15 64 146/71 11/29/17 12:00 79 130/66 11/29/17 12:00 Room Air 11/29/17 11:45 66 145/56 11/29/17 11:30 61 145/58 11/29/17 11:15 65 157/69 11/29/17 11:00 61 148/68 11/29/17 10:45 59 139/69 11/29/17 10:30 64 132/67 11/29/17 10:15 59 132/70 11/29/17 10:00 64 151/77 11/29/17 09:48 78 126/64 11/29/17 09:30 36.4 72 160/71 (100) 11/29/17 08:00 Room Air 11/29/17 07:28 36.7 86 18 162/76 (104) 97 Room Air Notes Mental Status: alert / awake / arousable, participated in evaluation Pt Amnestic to Procedure: Yes Nausea / Vomiting: adequately controlled Pain: adequately controlled Airway Patency, RR, SpO2: stable & adequate BP & HR: stable & adequate Hydration State: stable & adequate Anesthetic Complications: no major complications apparent
--- NOTE | 2017-11-29 16:27 | Progress Note ---
Progress Note Date of Service Nov 29, 2017. Progress Note Pt stable post EGD/Push enteroscopy. Denies abd pain. Went over procedure results.
[2017-11-29] MEDS: SUCRALFATE 1 GM/10 ML UDC PO SCH ×2 (17:12→20:09)
[2017-11-29] MEDS: PRAVASTATIN SOD 40 MG TAB PO SCH (20:10)
--- NOTE | 2017-11-29 22:23 | Family Medicine Progress Note ---
Progress Note Date of Service Nov 29, 2017. Subjective Pt evaluation today including: conversation w/ patient, physical exam, chart review, lab review, review of studies, review of inpatient medication list Pain: Minor back discomfort this morning after having his grandchildren visit PO Intake: NPO from midnight, awaiting scope today Voiding: voiding difficulty Patient is feeling well, reports some back discomfort after grandchildren visited yesterday. Otherwise, no other complaints Constitutional: No fever, No chills, No sweats, No weight loss, No weakness , No fatigue, No problem reported Respiratory: No cough, No sputum, No wheezing, No shortness of breath, No dyspnea on exertion, No dyspnea at rest, No hemoptysis, No problem reported Cardiovascular: No chest pain, No orthopnea, No PND, No edema, No claudication, No palpitations, No problem reported Abdomen: No pain, No nausea, No vomiting, No diarrhea, No constipation, No GI bleeding, No problem reported Musculoskeletal: + muscle pain (left lower back) Heme: + abnormal bleeding/bruising All Other Systems: Reviewed and Negative Medications Current Inpatient Medications Medications (Trade) Dose Ordered Sig/Kelsie Route Start Time Stop Time Status Last Admin Dose Admin Al Hydrox/Mg Hydrox/Simethicone (Maalox Max Susp) 15 ml Q4H PRN PO 11/22/17 23:30 12/22/17 23:29 Magnesium Hydroxide (Milk Of Magnesia Susp) 30 ml Q12H PRN PO 11/22/17 23:30 12/22/17 23:29 Ondansetron HCl (Zofran Inj) 4 mg Q6H PRN IV 11/22/17 23:30 12/22/17 23:29 Polyethylene (Miralax Powder Packet) 17 gm DAILY PRN PO 11/22/17 23:30 12/22/17 23:29 Amlodipine Besylate (Norvasc Tab) 5 mg QAM PO 11/23/17 09:00 12/23/17 08:59 11/29/17 08:51 5 MG Calcium Acetate (Phoslo Cap) 667 mg TIDM PRN PO 11/23/17 07:30 12/23/17 07:29 Docusate Sodium (coLACE CAP) 100 mg BID PO 11/23/17 09:00 12/23/17 08:59 11/29/17 20:10 100 MG Folic Acid (Folvite Tab) 1 mg DAILY PO 11/23/17 09:00 12/23/17 08:59 11/29/17 08:50 1 MG Metoprolol Tartrate (Lopressor Tab) 25 mg HS PO 11/23/17 21:00 12/23/17 20:59 11/29/17 20:13 25 MG Metoprolol Tartrate (Lopressor Tab) 50 mg QAM PO 11/23/17 09:00 12/23/17 08:59 11/29/17 08:51 50 MG Multivitamins/ Minerals (Multivitamin W/ Minerals Tab) 1 tab DAILY PO 11/23/17 09:00 12/23/17 08:59 11/29/17 08:50 1 TAB Pravastatin Sodium (Pravachol Tab) 40 mg QPM PO 11/23/17 21:00 12/23/17 20:59 11/29/17 20:10 40 MG Insulin Aspart (novoLOG ASPART) SLIDING SCALE G... ACHS SC 11/23/17 07:00 12/23/17 06:59 11/29/17 21:08 1 UNITS Calcium Acetate (Phoslo Cap) 1,334 mg TIDM PO 11/23/17 07:30 12/23/17 07:29 11/29/17 17:09 1,334 MG Glucose (Glucose 40% Gel) 15-30 GRAMS 15 GRAMS... UD PRN PO 11/23/17 01:30 12/23/17 01:29 Glucose (Glucose Chew Tab) 4-8 Tablets 4 Tabl... UD PRN PO 11/23/17 01:30 12/23/17 01:29 Dextrose (Dextrose 50% 50ML Syringe) 25-50ML OF 50% DW IV FOR... UD PRN IV 11/23/17 01:30 12/23/17 01:29 Glucagon (Glucagon Inj) 1 mg UD PRN SQ 11/23/17 01:30 12/23/17 01:29 Metoprolol Tartrate (Lopressor Iv) 5 mg Q4 PRN IV 11/23/17 02:00 12/22/17 23:29 Pantoprazole Sodium (Protonix Tab) 40 mg BID PO 11/23/17 11:30 12/23/17 11:29 11/29/17 20:09 40 MG Insulin Aspart Prota 70%/Aspart 30% (novoLOG MIX 70/ 30) 54 units QDB SC 11/28/17 07:30 12/23/17 07:29 Insulin Aspart Prota 70%/Aspart 30% (novoLOG MIX 70/ 30) 58 units QDD SC 11/27/17 16:45 12/23/17 16:44 Sucralfate (Carafate Susp) 1 gm QID PO 11/29/17 17:00 12/29/17 16:59 11/29/17 20:09 1 GM Objective Vital Signs Date Time Temp Pulse Resp B/P (MAP) Pulse Ox O2 Delivery O2 Flow Rate FiO2 11/29/17 19:11 36.8 78 18 138/64 (88) 97 Room Air 11/29/17 16:40 74 18 179/71 (107) 99 Room Air 11/29/17 16:24 88 18 150/61 (90) 98 Room Air 11/29/17 16:09 82 18 133/55 (81) 99 Room Air 11/29/17 16:00 Room Air 11/29/17 15:02 36.8 70 20 159/73 (101) 96 Room Air 11/29/17 14:15 36.6 77 130/63 (85) 11/29/17 13:45 73 129/66 11/29/17 13:30 68 131/73 11/29/17 13:15 62 147/77 11/29/17 13:00 65 140/69 11/29/17 12:45 60 147/75 11/29/17 12:30 66 133/71 11/29/17 12:15 64 146/71 11/29/17 12:00 79 130/66 11/29/17 12:00 Room Air 11/29/17 11:45 66 145/56 11/29/17 11:30 61 145/58 11/29/17 11:15 65 157/69 11/29/17 11:00 61 148/68 11/29/17 10:45 59 139/69 11/29/17 10:30 64 132/67 11/29/17 10:15 59 132/70 11/29/17 10:00 64 151/77 11/29/17 09:48 78 126/64 2/16/18 09:30 36.4 72 160/71 (100) 11/29/17 08:00 Room Air 11/29/17 07:28 36.7 86 18 162/76 (104) 97 Room Air 11/29/17 04:00 Room Air 11/29/17 03:23 36.9 84 17 159/70 (99) 95 Room Air 11/29/17 00:01 Room Air 11/28/17 23:50 36.7 86 17 156/71 (99) 96 Room Air Physical Exam General Appearance: WD/WN, no apparent distress Eyes: normal inspection, PERRL, EOMI, sclerae normal ENT: hearing grossly normal, pharynx normal Neck: supple, no adenopathy, thyroid normal, no JVD, no carotid bruits, trachea midline Respiratory/Chest: chest non-tender, lungs clear, normal breath sounds, no respiratory distress, no accessory muscle use Cardiovascular: regular rate, rhythm, no edema, no gallop, no JVD, no murmur Abdomen: normal bowel sounds, non tender, soft Extremities: normal range of motion, non-tender, no calf tenderness, + pertinent finding (chronic lower extremity venous stasis changes) Neurologic/Psychiatric: 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 Was found to have a hgb of 7.1 and has been having dark stools. 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 Currently feeling well although if his Hgb drops any further or he experiences weakness/fatigue, will transfuse - follow H&H and transfuse as needed. Hgb 9.1 this AM, Continue to monitor - GI consulted - - unclear whether upper or lower GI bleeding or both - continue PPI ( pantoprazole 40mg BID) - EGD shows possible source of bleeding; cautery performed; colonoscopy showed internal hemorrhoids and radiation proctitis but was not great prep - Repeat EGD/colonoscopy in 4 weeks. Potentially sooner if hgb does not stabilize - Patient reports continued dark stool. 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 Not currently candidate for anticoag. ESRD with dialysis - Dialysis on Sat, Sat and Saturday - monitor I/O's - thank you to nephro for consult - volume status and electrolyte balance acceptable - no need for urgent HD, will resume HD as per schedule - monitor BMP, avoid IVF, dose meds to GFR <10 - 1 unit transfused during dialysis yesterday - hold home meds DM2 - last Hba1c was 5.6 in August - continue home regimen of 70/30 insulin - continue ISS - check blood sugars [facility] HTN - continue home metoprolol and amlodipine HLD - continue statin Hx of prostate CA - local to prostate, had prostatectomy - no recurrence since Pulmonary nodules - lesions noted in lungs on CT scan -> increasing in size since scan in 2012. He is aware of these and used to follow with Dr. Jackson - will require outpatient f/u and monitoring DVT prophylaxis: contraindicated due to GI bleed, no SCD due to venous skin changes Code: Full code, no mechanical vent or cardioversion Disposition: remains on telemetry, home tomorrow Resident Tracking Resident Involvement: Resident Care Provided Care Provided: Adult Hospital Medicine
[2017-11-30 03:35] VITALS: BP 146/61; PULSE 73; TEMP 37.2; O2SAT 93
[2017-11-30 06:16] LABS: HEMOGLOBIN 9.1 g/dL (14.0-18.0); MEAN CELL VOLUME 91.8 fL (80-100); MEAN CORPUSCULAR HGB CONC 33.7 g/dl (32-36); RED CELL DISTRIBUTION WIDTH CV 17.1 % (11.5-14.5); RED CELL DISTRIBUTION WIDTH SD 56.9 fL (36.4-46.3); WHITE BLOOD COUNT 7.52 K/uL (4.8-10.8)
[2017-11-30 06:27] LABS: MEAN PLATELET VOLUME 9.6 fL (7.4-10.4); PLATELET COUNT 97 K/uL (130-400)
[2017-11-30 07:10] LABS: ALBUMIN 2.9 gm/dl (3.4-5.0); CALCIUM 7.2 mg/dl (8.5-10.1); CREATININE 5.66 mg/dl (0.60-1.40); POTASSIUM 4.1 mmol/L (3.5-5.1); TOTAL PROTEIN 6.4 gm/dl (6.4-8.2)
[2017-11-30 07:16] LABS: BASO % 0.1 %; BASO ABS # 0.01 K/uL (0-0.2); EOS % 0.5 %; EOS ABS # 0.04 K/uL (0-0.5); IG# 0.02 K/uL (0.00-0.02); LYMPH % 15.6 %; LYMPH ABS # 1.17 K/uL (1.2-3.4); MONO % 8.5 %; MONO ABS # 0.64 K/uL (0.11-0.59); NEUT ABS # 5.64 K/uL (1.4-6.5)
[2017-11-30] MEDS: INSULIN 70% ASPART PROTAMINE/30% ASPART SC SCH ×2 (07:30→16:45)
[2017-11-30 07:31] VITALS: BP 132/65; PULSE 87; TEMP 37.7; O2SAT 97
[2017-11-30] MEDS: CEROVITE ADV FORMULA TAB PO SCH (08:41)
[2017-11-30] MEDS: PANTOprazole SOD 40 MG TAB PO SCH ×2 (08:41→21:02)
[2017-11-30] MEDS: CALCIUM ACETATE 667MG GELCAP PO SCH ×3 (08:41→16:43)
[2017-11-30] MEDS: AMLODIPINE BESYLATE 5 MG TAB PO SCH (08:41)
[2017-11-30] MEDS: DOCUSATE SODIUM 100 MG CAP PO SCH ×2 (08:42→21:02)
[2017-11-30] MEDS: SUCRALFATE 1 GM/10 ML UDC PO SCH ×4 (08:42→21:01)
[2017-11-30] MEDS: METOPROLOL TARTRATE 25 MG TAB PO SCH ×2 (08:42→21:02)
[2017-11-30] MEDS: INSULIN ASPART 100 UNITS/ML 3 ML PEN SC SCH ×4 (08:47→21:00)
--- NOTE | 2017-11-30 11:14 | Nephrology Progress Note ---
Nephrology Progress Note Date of Service Nov 30, 2017. Chief Complaint ESRD Subjective No acute events overnight. Isidro was sitting comfortably in a bedside chair this morning. He feels well. HD completed yesterday without complications. Net UF 3 kg. Isidro tolerated his EGD/colonoscopy. He has not moved his bowels today. He denies any signs of continued bleeding. He hopes that he can be discharged home today. Appetite is good. He denies abdominal pain. Tolerated breakfast well. Review of Systems A complete review of systems was performed. Pertinent positives are noted above. All other systems are negative. Vital Signs Last 8 Hrs Date Time Temp Pulse Resp B/P (MAP) Pulse Ox O2 Delivery O2 Flow Rate FiO2 11/30/17 08:00 Room Air 11/30/17 07:31 37.7 87 20 132/65 (87) 97 Room Air 11/30/17 03:35 37.2 73 17 146/61 (89) 93 Room Air Last Recorded Weight Weight (Kilograms): 90.900 Physical Exam General Appearance: WD/WN, no apparent distress Head: normocephalic, atraumatic Eyes: normal inspection, sclerae normal ENT: normal ENT inspection, pharynx normal Neck: supple, no JVD Respiratory/Chest: lungs clear, no respiratory distress, no accessory muscle use Cardiovascular: regular rate, rhythm, no JVD Abdomen/GI: non tender, soft Extremities/Musculoskelatal: normal inspection, no pedal edema, + pertinent finding (LUE AVF with thrill and bruit) Neurologic/Psych: alert, normal mood/affect Family History Patient reports no known family medical history. Negative for CKD/ESRD Social History Smokeless Tobacco Use: No Alcohol Use: none Drug Use: none Marital Status: Housing Status: lives with family Occupation: retired . Retired. Never a smoker Laboratory Results Past 24 Hours 11/30/17 05:17 Red Blood Count 2.94, Mean Corpuscular Volume 91.8, Mean Corpuscular Hemoglobin 31.0, Mean Corpuscular Hemoglobin Concent 33.7, Mean Platelet Volume 9.6, Neutrophils (%) (Auto) 75.0, Lymphocytes (%) (Auto) 15.6, Monocytes (%) (Auto) 8.5, Eosinophils (%) (Auto) 0.5, Basophils (%) (Auto) 0.1, Neutrophils # (Auto) 5.64, Lymphocytes # (Auto) 1.17, Monocytes # (Auto) 0.64, Eosinophils # (Auto) 0.04, Basophils # (Auto) 0.01 11/30/17 05:17 Test 11/29/17 14:37 11/29/17 17:06 11/29/17 21:06 11/30/17 00:26 Bedside Glucose 120 mg/dl (70-99) 119 mg/dl (70-99) 171 mg/dl (70-99) 175 mg/dl (70-99) Test 11/30/17 05:17 11/30/17 06:52 White Blood Count 7.52 K/uL (4.8-10.8) Red Blood Count 2.94 M/uL (4.7-6.1) Hemoglobin 9.1 g/dL (14.0-18.0) Hematocrit 27.0 % (42-52) Mean Corpuscular Volume 91.8 fL (80-100) Mean Corpuscular Hemoglobin 31.0 pg (25-34) Mean Corpuscular Hemoglobin Concent 33.7 g/dl (32-36) Platelet Count 97 K/uL (130-400) Mean Platelet Volume 9.6 fL (7.4-10.4) Neutrophils (%) (Auto) 75.0 % Lymphocytes (%) (Auto) 15.6 % Monocytes (%) (Auto) 8.5 % Eosinophils (%) (Auto) 0.5 % Basophils (%) (Auto) 0.1 % Neutrophils # (Auto) 5.64 K/uL (1.4-6.5) Lymphocytes # (Auto) 1.17 K/uL (1.2-3.4) Monocytes # (Auto) 0.64 K/uL (0.11-0.59) Eosinophils # (Auto) 0.04 K/uL (0-0.5) Basophils # (Auto) 0.01 K/uL (0-0.2) RDW Standard Deviation 56.9 fL (36.4-46.3) RDW Coefficient of Variation 17.1 % (11.5-14.5) Immature Granulocyte % (Auto) 0.3 % Immature Granulocyte # (Auto) 0.02 K/uL (0.00-0.02) Anion Gap 10.0 mmol/L (3-11) Est Creatinine Clear Calc Drug Dose 11.0 ml/min Estimated GFR () 9.9 Estimated GFR (Non- 8.5 BUN/Creatinine Ratio 7.2 (10-20) Calcium Level 7.2 mg/dl (8.5-10.1) Magnesium Level 2.2 mg/dl (1.8-2.4) Total Bilirubin 0.4 mg/dl (0.2-1) Aspartate Amino Transf (AST/SGOT) 12 U/L (15-37) Alanine Aminotransferase (ALT/SGPT) 19 U/L (12-78) Alkaline Phosphatase 53 U/L (45-117) Total Protein 6.4 gm/dl (6.4-8.2) Albumin 2.9 gm/dl (3.4-5.0) Globulin 3.5 gm/dl (2.5-4.0) Albumin/Globulin Ratio 0.8 (0.9-2) Bedside Glucose 140 mg/dl (70-99) Allergies Coded Allergies: Clarithromycin (Verified Adverse Reaction, Intermediate, confusion, 11/14/17 ) Fish Oil (Verified Adverse Reaction, Intermediate, hx of hemorrage in past , 11/14/17) Sulfa Antibiotics (Verified Adverse Reaction, Intermediate, SEVERE AGITATION/DELIRIUM, 11/14/17) Medications Current Inpatient Medications Medications (Trade) Dose Ordered Sig/Kelsie Route Start Time Stop Time Status Last Admin Dose Admin Al Hydrox/Mg Hydrox/Simethicone (Maalox Max Susp) 15 ml Q4H PRN PO 11/22/17 23:30 12/22/17 23:29 Magnesium Hydroxide (Milk Of Magnesia Susp) 30 ml Q12H PRN PO 11/22/17 23:30 12/22/17 23:29 Ondansetron HCl (Zofran Inj) 4 mg Q6H PRN IV 11/22/17 23:30 12/22/17 23:29 Polyethylene (Miralax Powder Packet) 17 gm DAILY PRN PO 11/22/17 23:30 12/22/17 23:29 Amlodipine Besylate (Norvasc Tab) 5 mg QAM PO 11/23/17 09:00 12/23/17 08:59 11/30/17 08:41 5 MG Calcium Acetate (Phoslo Cap) 667 mg TIDM PRN PO 11/23/17 07:30 12/23/17 07:29 Docusate Sodium (coLACE CAP) 100 mg BID PO 11/23/17 09:00 12/23/17 08:59 11/30/17 08:42 100 MG Folic Acid (Folvite Tab) 1 mg DAILY PO 11/23/17 09:00 12/23/17 08:59 11/30/17 08:40 1 MG Metoprolol Tartrate (Lopressor Tab) 25 mg HS PO 11/23/17 21:00 12/23/17 20:59 11/29/17 20:13 25 MG Metoprolol Tartrate (Lopressor Tab) 50 mg QAM PO 11/23/17 09:00 12/23/17 08:59 11/30/17 08:42 50 MG Multivitamins/ Minerals (Multivitamin W/ Minerals Tab) 1 tab DAILY PO 11/23/17 09:00 12/23/17 08:59 11/30/17 08:41 1 TAB Pravastatin Sodium (Pravachol Tab) 40 mg QPM PO 11/23/17 21:00 12/23/17 20:59 11/29/17 20:10 40 MG Insulin Aspart (novoLOG ASPART) SLIDING SCALE G... ACHS SC 11/23/17 07:00 12/23/17 06:59 11/30/17 08:47 5 UNITS Calcium Acetate (Phoslo Cap) 1,334 mg TIDM PO 11/23/17 07:30 12/23/17 07:29 11/30/17 08:41 1,334 MG Glucose (Glucose 40% Gel) 15-30 GRAMS 15 GRAMS... UD PRN PO 11/23/17 01:30 12/23/17 01:29 Glucose (Glucose Chew Tab) 4-8 Tablets 4 Tabl... UD PRN PO 11/23/17 01:30 12/23/17 01:29 Dextrose (Dextrose 50% 50ML Syringe) 25-50ML OF 50% DW IV FOR... UD PRN IV 11/23/17 01:30 12/23/17 01:29 Glucagon (Glucagon Inj) 1 mg UD PRN SQ 11/23/17 01:30 12/23/17 01:29 Metoprolol Tartrate (Lopressor Iv) 5 mg Q4 PRN IV 11/23/17 02:00 12/22/17 23:29 Pantoprazole Sodium (Protonix Tab) 40 mg BID PO 11/23/17 11:30 12/23/17 11:29 11/30/17 08:41 40 MG Insulin Aspart Prota 70%/Aspart 30% (novoLOG MIX 70/ 30) 54 units QDB SC 11/28/17 07:30 12/23/17 07:29 Insulin Aspart Prota 70%/Aspart 30% (novoLOG MIX 70/ 30) 58 units QDD SC 11/27/17 16:45 12/23/17 16:44 Sucralfate (Carafate Susp) 1 gm QID PO 11/29/17 17:00 12/29/17 16:59 11/30/17 08:42 1 GM Impression (1) End-stage renal disease on hemodialysis (2) Symptomatic anemia (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 EGD revealed GAVE and an AVM which was cauterized. Repeat endoscopy scheduled for 4-6 weeks. Isidro is on HD MWF at [facility]. Recommendations ESRD: -- BP and volume status are currently appropriate -- Plan next HD for Saturday -- Electrolytes are acceptable -- Medications are appropriate for renal function -- Renal diet Anemia: -- No evidence of continued GI bleeding -- Hemoglobin can be monitored in the outpatient setting during hemodialysis Hypertension: -- Controlled. No changes at this time.
[2017-11-30 13:12] VITALS: BP 146/65; PULSE 69; TEMP 37.5; O2SAT 96
[2017-11-30] MEDS ORDERED: MAGNESIUM CITRATE 296 ML/BTL PO ONE (14:00)
--- NOTE | 2017-11-30 14:02 | Gastroenterology Progress Note ---
Progress Note Date of Service: Nov 30, 2017 Subjective Pt evaluation today including: conversation w/ patient, physical exam, chart review, lab review, review of studies, review of inpatient medication list CC f/u GI Bleeding HPI Pt denies abd pain. Tolerating diet. States stool since EGD still dark. Review of Systems Respiratory: No shortness of breath Cardiac: No chest pain Medications Current Inpatient Medications Medications (Trade) Dose Ordered Sig/Kelsie Route Start Time Stop Time Status Last Admin Dose Admin Al Hydrox/Mg Hydrox/Simethicone (Maalox Max Susp) 15 ml Q4H PRN PO 11/22/17 23:30 12/22/17 23:29 Magnesium Hydroxide (Milk Of Magnesia Susp) 30 ml Q12H PRN PO 11/22/17 23:30 12/22/17 23:29 Ondansetron HCl (Zofran Inj) 4 mg Q6H PRN IV 11/22/17 23:30 12/22/17 23:29 Polyethylene (Miralax Powder Packet) 17 gm DAILY PRN PO 11/22/17 23:30 12/22/17 23:29 Amlodipine Besylate (Norvasc Tab) 5 mg QAM PO 11/23/17 09:00 12/23/17 08:59 11/30/17 08:41 5 MG Calcium Acetate (Phoslo Cap) 667 mg TIDM PRN PO 11/23/17 07:30 12/23/17 07:29 Docusate Sodium (coLACE CAP) 100 mg BID PO 11/23/17 09:00 12/23/17 08:59 11/30/17 08:42 100 MG Folic Acid (Folvite Tab) 1 mg DAILY PO 11/23/17 09:00 12/23/17 08:59 11/30/17 08:40 1 MG Metoprolol Tartrate (Lopressor Tab) 25 mg HS PO 11/23/17 21:00 12/23/17 20:59 11/29/17 20:13 25 MG Metoprolol Tartrate (Lopressor Tab) 50 mg QAM PO 11/23/17 09:00 12/23/17 08:59 11/30/17 08:42 50 MG Multivitamins/ Minerals (Multivitamin W/ Minerals Tab) 1 tab DAILY PO 11/23/17 09:00 12/23/17 08:59 11/30/17 08:41 1 TAB Pravastatin Sodium (Pravachol Tab) 40 mg QPM PO 11/23/17 21:00 12/23/17 20:59 11/29/17 20:10 40 MG Insulin Aspart (novoLOG ASPART) SLIDING SCALE G... ACHS SC 11/23/17 07:00 12/23/17 06:59 11/30/17 12:11 7 UNITS Calcium Acetate (Phoslo Cap) 1,334 mg TIDM PO 11/23/17 07:30 12/23/17 07:29 11/30/17 12:09 1,334 MG Glucose (Glucose 40% Gel) 15-30 GRAMS 15 GRAMS... UD PRN PO 11/23/17 01:30 12/23/17 01:29 Glucose (Glucose Chew Tab) 4-8 Tablets 4 Tabl... UD PRN PO 11/23/17 01:30 12/23/17 01:29 Dextrose (Dextrose 50% 50ML Syringe) 25-50ML OF 50% DW IV FOR... UD PRN IV 11/23/17 01:30 12/23/17 01:29 Glucagon (Glucagon Inj) 1 mg UD PRN SQ 11/23/17 01:30 12/23/17 01:29 Metoprolol Tartrate (Lopressor Iv) 5 mg Q4 PRN IV 11/23/17 02:00 12/22/17 23:29 Pantoprazole Sodium (Protonix Tab) 40 mg BID PO 11/23/17 11:30 12/23/17 11:29 11/30/17 08:41 40 MG Insulin Aspart Prota 70%/Aspart 30% (novoLOG MIX 70/ 30) 54 units QDB SC 11/28/17 07:30 12/23/17 07:29 Insulin Aspart Prota 70%/Aspart 30% (novoLOG MIX 70/ 30) 58 units QDD SC 11/27/17 16:45 12/23/17 16:44 Sucralfate (Carafate Susp) 1 gm QID PO 11/29/17 17:00 12/29/17 16:59 11/30/17 12:09 1 GM Objective Vital Signs Date Time Temp Pulse Resp B/P (MAP) Pulse Ox O2 Delivery O2 Flow Rate FiO2 11/30/17 13:12 37.5 69 20 146/65 (92) 96 Room Air 11/30/17 12:00 Room Air 11/30/17 08:00 Room Air 11/30/17 07:31 37.7 87 20 132/65 (87) 97 Room Air 11/30/17 03:35 37.2 73 17 146/61 (89) 93 Room Air 11/30/17 00:15 Room Air 11/29/17 23:33 37.5 71 22 156/72 (100) 96 Room Air 11/29/17 22:19 Room Air 11/29/17 19:11 36.8 78 18 138/64 (88) 97 Room Air 11/29/17 16:40 74 18 179/71 (107) 99 Room Air 11/29/17 16:24 88 18 150/61 (90) 98 Room Air 11/29/17 16:09 82 18 133/55 (81) 99 Room Air 11/29/17 16:00 Room Air 11/29/17 15:02 36.8 70 20 159/73 (101) 96 Room Air 11/29/17 14:15 36.6 77 130/63 (85) Physical Exam General Appearance: WD/WN, no apparent distress Respiratory/Chest: lungs clear, no respiratory distress Cardiovascular: no murmur Abdomen: normal bowel sounds, non tender, soft, no organomegaly, no pulsatile mass Neurologic/Psych: alert, normal mood/affect Skin: normal color, no rash Laboratory Results Last 24 Hours Test 11/29/17 14:37 11/29/17 17:06 11/29/17 21:06 11/30/17 00:26 Bedside Glucose 120 mg/dl 119 mg/dl 171 mg/dl 175 mg/dl Test 11/30/17 05:17 11/30/17 06:52 11/30/17 11:43 White Blood Count 7.52 K/uL Red Blood Count 2.94 M/uL Hemoglobin 9.1 g/dL Hematocrit 27.0 % Mean Corpuscular Volume 91.8 fL Mean Corpuscular Hemoglobin 31.0 pg Mean Corpuscular Hemoglobin Concent 33.7 g/dl Platelet Count 97 K/uL Mean Platelet Volume 9.6 fL Neutrophils (%) (Auto) 75.0 % Lymphocytes (%) (Auto) 15.6 % Monocytes (%) (Auto) 8.5 % Eosinophils (%) (Auto) 0.5 % Basophils (%) (Auto) 0.1 % Neutrophils # (Auto) 5.64 K/uL Lymphocytes # (Auto) 1.17 K/uL Monocytes # (Auto) 0.64 K/uL Eosinophils # (Auto) 0.04 K/uL Basophils # (Auto) 0.01 K/uL RDW Standard Deviation 56.9 fL RDW Coefficient of Variation 17.1 % Immature Granulocyte % (Auto) 0.3 % Immature Granulocyte # (Auto) 0.02 K/uL Sodium Level 134 mmol/L Potassium Level 4.1 mmol/L Chloride Level 97 mmol/L Carbon Dioxide Level 27 mmol/L Anion Gap 10.0 mmol/L Blood Urea Nitrogen 41 mg/dl Creatinine 5.66 mg/dl Est Creatinine Clear Calc Drug Dose 11.0 ml/min Estimated GFR () 9.9 Estimated GFR (Non- 8.5 BUN/Creatinine Ratio 7.2 Random Glucose 139 mg/dl Calcium Level 7.2 mg/dl Magnesium Level 2.2 mg/dl Total Bilirubin 0.4 mg/dl Aspartate Amino Transf (AST/SGOT) 12 U/L Alanine Aminotransferase (ALT/SGPT) 19 U/L Alkaline Phosphatase 53 U/L Total Protein 6.4 gm/dl Albumin 2.9 gm/dl Globulin 3.5 gm/dl Albumin/Globulin Ratio 0.8 Bedside Glucose 140 mg/dl 212 mg/dl Assessment and Plan Acute blood loss anemia--stable----follow H and H and transfuse as needed GI bleeding--melena and rectal bleeding-- s/p EGD times two and colo. Jejunal lesion most brisk bleeding and hopefully is main issue and now fixed. 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 Await repeat path from 11/30/17 but can be viewed again in 4 weeks at EGD hx of colon polyps--colo 11/25/17 showed tubular adenoma of ascending colon Other problems per hospitalist afib, ESRD on dialysis. , DM, HTN
[2017-11-30 15:15] VITALS: BP 144/57; PULSE 74; TEMP 37.1; O2SAT 97
[2017-11-30] MEDS ORDERED: MAGNESIUM CITRATE 296 ML/BTL ONE (16:38)
--- NOTE | 2017-11-30 17:27 | Family Medicine Progress Note ---
Progress Note Date of Service Nov 30, 2017. Subjective Assessed pt while he lay in bed, sitting comfortably, later re-assessed while laying in bed. Reports eating and drinking with no issues, but does report that last stool was dark. Denies blood in urine or stool. Is otherwise feeling well. Denies chest pain, SOB, headaches, abdominal pain, dysuria or pain or swelling in lower extremities. ROS See HPI for pertinent positives and negatives. Medications Current Inpatient Medications Medications (Trade) Dose Ordered Sig/Kelsie Route Start Time Stop Time Status Last Admin Dose Admin Al Hydrox/Mg Hydrox/Simethicone (Maalox Max Susp) 15 ml Q4H PRN PO 11/22/17 23:30 12/22/17 23:29 Magnesium Hydroxide (Milk Of Magnesia Susp) 30 ml Q12H PRN PO 11/22/17 23:30 12/22/17 23:29 Ondansetron HCl (Zofran Inj) 4 mg Q6H PRN IV 11/22/17 23:30 12/22/17 23:29 Polyethylene (Miralax Powder Packet) 17 gm DAILY PRN PO 11/22/17 23:30 12/22/17 23:29 Amlodipine Besylate (Norvasc Tab) 5 mg QAM PO 11/23/17 09:00 12/23/17 08:59 11/30/17 08:41 5 MG Calcium Acetate (Phoslo Cap) 667 mg TIDM PRN PO 11/23/17 07:30 12/23/17 07:29 Docusate Sodium (coLACE CAP) 100 mg BID PO 11/23/17 09:00 12/23/17 08:59 11/30/17 08:42 100 MG Folic Acid (Folvite Tab) 1 mg DAILY PO 11/23/17 09:00 12/23/17 08:59 11/30/17 08:40 1 MG Metoprolol Tartrate (Lopressor Tab) 25 mg HS PO 11/23/17 21:00 12/23/17 20:59 11/29/17 20:13 25 MG Metoprolol Tartrate (Lopressor Tab) 50 mg QAM PO 11/23/17 09:00 12/23/17 08:59 11/30/17 08:42 50 MG Multivitamins/ Minerals (Multivitamin W/ Minerals Tab) 1 tab DAILY PO 11/23/17 09:00 12/23/17 08:59 11/30/17 08:41 1 TAB Pravastatin Sodium (Pravachol Tab) 40 mg QPM PO 11/23/17 21:00 12/23/17 20:59 11/29/17 20:10 40 MG Insulin Aspart (novoLOG ASPART) SLIDING SCALE G... ACHS SC 11/23/17 07:00 12/23/17 06:59 11/30/17 16:49 3 UNITS Calcium Acetate (Phoslo Cap) 1,334 mg TIDM PO 11/23/17 07:30 12/23/17 07:29 11/30/17 16:43 1,334 MG Glucose (Glucose 40% Gel) 15-30 GRAMS 15 GRAMS... UD PRN PO 11/23/17 01:30 12/23/17 01:29 Glucose (Glucose Chew Tab) 4-8 Tablets 4 Tabl... UD PRN PO 11/23/17 01:30 12/23/17 01:29 Dextrose (Dextrose 50% 50ML Syringe) 25-50ML OF 50% DW IV FOR... UD PRN IV 11/23/17 01:30 12/23/17 01:29 Glucagon (Glucagon Inj) 1 mg UD PRN SQ 11/23/17 01:30 12/23/17 01:29 Metoprolol Tartrate (Lopressor Iv) 5 mg Q4 PRN IV 11/23/17 02:00 12/22/17 23:29 Pantoprazole Sodium (Protonix Tab) 40 mg BID PO 11/23/17 11:30 12/23/17 11:29 11/30/17 08:41 40 MG Insulin Aspart Prota 70%/Aspart 30% (novoLOG MIX 70/ 30) 54 units QDB SC 11/28/17 07:30 12/23/17 07:29 Insulin Aspart Prota 70%/Aspart 30% (novoLOG MIX 70/ 30) 58 units QDD SC 11/27/17 16:45 12/23/17 16:44 Sucralfate (Carafate Susp) 1 gm QID PO 11/29/17 17:00 12/29/17 16:59 11/30/17 16:43 1 GM Objective Vital Signs Date Time Temp Pulse Resp B/P (MAP) Pulse Ox O2 Delivery O2 Flow Rate FiO2 11/30/17 16:00 Room Air 11/30/17 15:15 37.1 74 20 144/57 (86) 97 Room Air 11/30/17 13:12 37.5 69 20 146/65 (92) 96 Room Air 11/30/17 12:00 Room Air 11/30/17 08:00 Room Air 11/30/17 07:31 37.7 87 20 132/65 (87) 97 Room Air 11/30/17 03:35 37.2 73 17 146/61 (89) 93 Room Air 11/30/17 00:15 Room Air 11/29/17 23:33 37.5 71 22 156/72 (100) 96 Room Air 11/29/17 22:19 Room Air 11/29/17 19:11 36.8 78 18 138/64 (88) 97 Room Air Physical Exam Notes: GENERAL: Awake, alert, well-appearing, in no distress HENT: Normocephalic, atraumatic. EYES: Normal conjunctiva. Sclera non-icteric. RESPIRATORY: Clear to auscultation. CARDIAC: Regular rate, normal rhythm. Extremities warm and well perfused. Pulses equal. ABDOMEN: Soft, non-distended. No tenderness to palpation. No rebound or guarding. No masses. LOWER EXTREMITIES: Calves are equal size bilaterally and non-tender. No edema. No discoloration. Healing scabs on shins bilaterally. NEURO: No motor deficits noted. SKIN: No rash or jaundice noted. Laboratory Results 11/30/17 05:17 Red Blood Count 2.94, Mean Corpuscular Volume 91.8, Mean Corpuscular Hemoglobin 31.0, Mean Corpuscular Hemoglobin Concent 33.7, Mean Platelet Volume 9.6, Neutrophils (%) (Auto) 75.0, Lymphocytes (%) (Auto) 15.6, Monocytes (%) (Auto) 8.5, Eosinophils (%) (Auto) 0.5, Basophils (%) (Auto) 0.1, Neutrophils # (Auto) 5.64, Lymphocytes # (Auto) 1.17, Monocytes # (Auto) 0.64, Eosinophils # (Auto) 0.04, Basophils # (Auto) 0.01 11/30/17 05:17 Test 11/30/17 05:17 11/30/17 16:09 White Blood Count 7.52 K/uL (4.8-10.8) Red Blood Count 2.94 M/uL (4.7-6.1) Hemoglobin 9.1 g/dL (14.0-18.0) Hematocrit 27.0 % (42-52) Mean Corpuscular Volume 91.8 fL (80-100) Mean Corpuscular Hemoglobin 31.0 pg (25-34) Mean Corpuscular Hemoglobin Concent 33.7 g/dl (32-36) Platelet Count 97 K/uL (130-400) Mean Platelet Volume 9.6 fL (7.4-10.4) Neutrophils (%) (Auto) 75.0 % Lymphocytes (%) (Auto) 15.6 % Monocytes (%) (Auto) 8.5 % Eosinophils (%) (Auto) 0.5 % Basophils (%) (Auto) 0.1 % Neutrophils # (Auto) 5.64 K/uL (1.4-6.5) Lymphocytes # (Auto) 1.17 K/uL (1.2-3.4) Monocytes # (Auto) 0.64 K/uL (0.11-0.59) Eosinophils # (Auto) 0.04 K/uL (0-0.5) Basophils # (Auto) 0.01 K/uL (0-0.2) RDW Standard Deviation 56.9 fL (36.4-46.3) RDW Coefficient of Variation 17.1 % (11.5-14.5) Immature Granulocyte % (Auto) 0.3 % Immature Granulocyte # (Auto) 0.02 K/uL (0.00-0.02) Anion Gap 10.0 mmol/L (3-11) Est Creatinine Clear Calc Drug Dose 11.0 ml/min Estimated GFR () 9.9 Estimated GFR (Non- 8.5 BUN/Creatinine Ratio 7.2 (10-20) Calcium Level 7.2 mg/dl (8.5-10.1) Magnesium Level 2.2 mg/dl (1.8-2.4) Total Bilirubin 0.4 mg/dl (0.2-1) Aspartate Amino Transf (AST/SGOT) 12 U/L (15-37) Alanine Aminotransferase (ALT/SGPT) 19 U/L (12-78) Alkaline Phosphatase 53 U/L (45-117) Total Protein 6.4 gm/dl (6.4-8.2) Albumin 2.9 gm/dl (3.4-5.0) Globulin 3.5 gm/dl (2.5-4.0) Albumin/Globulin Ratio 0.8 (0.9-2) Bedside Glucose 147 mg/dl (70-99) Assessment and Plan Mr. 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 Was found to have a hgb of 7.1 and had been having dark stools. 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 Stable. - follow H&H and transfuse as needed. 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 Potentially sooner if hgb does not stabilize - Patient reports continued dark stool. Given mag citrate to move bowels in order to assess if bleeding in tract has truly stopped. EKG Changes - initial EKG read was atrial fibrillation, however patient was never in atrial fibrillation, but rather sinus rhythm w/PACs - continue to monitor - Discussion has been had with patient regarding risks/benefits of treating afib vs risk without anticoag. Not currently candidate for anticoag. ESRD with dialysis - Dialysis on Sat, Sat and Saturday - monitor I/O's - thank you to nephro for consult - volume status and electrolyte balance acceptable - no need for urgent HD, will resume HD as per schedule - monitor BMP, avoid IVF, dose meds to GFR <10 - 1 unit transfused during dialysis yesterday - hold home meds DM2 - last Hba1c was 5.6 in August - continue home regimen of 70/30 insulin - continue ISS - check blood sugars [facility] HTN - continue home metoprolol and amlodipine HLD - continue statin Hx of prostate CA - local to prostate, had prostatectomy - no recurrence since Pulmonary nodules - lesions noted in lungs on CT scan -> increasing in size since scan in 2012. He is aware of these and used to follow with Dr. Jackson - will require outpatient f/u and monitoring DVT prophylaxis: contraindicated due to GI bleed, no SCD due to venous skin changes Code: Full code, no mechanical vent or cardioversion Disposition: remains on telemetry, home ONCE no more dark or bloody stools. Continued [facility] stay due to: other (need to assess bleeding per rectum and blood in stool) Discharge planning: home Resident Tracking Resident Involvement: Resident Care Provided Care Provided: Adult ED
[2017-11-30 20:37] VITALS: BP 162/90; PULSE 92; TEMP 37; O2SAT 96
[2017-11-30] MEDS: PRAVASTATIN SOD 40 MG TAB PO SCH (21:02)
[2017-11-30] MEDS: ACETAMINOPHEN 325 MG TAB PO PRN (21:56)
[2017-12-01 00:26] VITALS: BP 141/51; PULSE 69; TEMP 37.5; O2SAT 97
[2017-12-01] MEDS: ACETAMINOPHEN 325 MG TAB PO PRN ×2 (03:25→08:10)
[2017-12-01 03:33] VITALS: BP 174/66; PULSE 68; TEMP 36.9; O2SAT 96
[2017-12-01 06:30] LABS: HEMATOCRIT 26.7 % (42-52); MEAN CELL VOLUME 91.4 fL (80-100); MEAN CORPUSCULAR HEMOGLOBIN 30.8 pg (25-34); MEAN CORPUSCULAR HGB CONC 33.7 g/dl (32-36); RED CELL DISTRIBUTION WIDTH SD 56.5 fL (36.4-46.3); WHITE BLOOD COUNT 9.66 K/uL (4.8-10.8)
[2017-12-01 06:35] LABS: MEAN PLATELET VOLUME 8.8 fL (7.4-10.4); PLATELET COUNT 97 K/uL (130-400)
[2017-12-01 06:52] LABS: BASO % 0.1 %; BASO ABS # 0.01 K/uL (0-0.2); EOS % 0.2 %; EOS ABS # 0.02 K/uL (0-0.5); IG# 0.03 K/uL (0.00-0.02); LYMPH ABS # 1.16 K/uL (1.2-3.4); MONO % 9.2 %; MONO ABS # 0.89 K/uL (0.11-0.59); NEUT % 78.2 %; NEUT ABS # 7.55 K/uL (1.4-6.5)
[2017-12-01 07:17] LABS: ALBUMIN 2.9 gm/dl (3.4-5.0); CALCIUM 7.8 mg/dl (8.5-10.1); CREATININE 7.46 mg/dl (0.60-1.40); POTASSIUM 4.8 mmol/L (3.5-5.1); TOTAL PROTEIN 6.8 gm/dl (6.4-8.2)
[2017-12-01] MEDS: INSULIN 70% ASPART PROTAMINE/30% ASPART SC SCH (07:30)
[2017-12-01] MEDS: SUCRALFATE 1 GM/10 ML UDC PO SCH ×2 (08:00→12:25)
[2017-12-01] MEDS: PANTOprazole SOD 40 MG TAB PO SCH (08:01)
[2017-12-01] MEDS: METOPROLOL TARTRATE 25 MG TAB PO SCH (08:01)
[2017-12-01] MEDS: CALCIUM ACETATE 667MG GELCAP PO SCH ×2 (08:01→12:25)
[2017-12-01] MEDS: DOCUSATE SODIUM 100 MG CAP PO SCH (08:01)
[2017-12-01] MEDS: CEROVITE ADV FORMULA TAB PO SCH (08:01)
[2017-12-01] MEDS: INSULIN ASPART 100 UNITS/ML 3 ML PEN SC SCH ×2 (08:05→12:28)
[2017-12-01 08:25] VITALS: BP 167/61; PULSE 75; TEMP 36.8; O2SAT 98
[2017-12-01] MEDS ORDERED: AMLODIPINE BESYLATE 5 MG TAB PO SCH (09:00)
--- NOTE | 2017-12-01 10:42 | Nephrology Progress Note ---
Nephrology Progress Note Date of Service Dec 01, 2017. Chief Complaint ESRD Subjective No acute events overnight. Isidro is comfortable this morning. He has no acute complaints. Stool is loose. It is clearing. He denies abdominal pain. He denies significant dyspnea. No fevers or chills. Review of Systems A complete review of systems was performed. Pertinent positives are noted above. All other systems are negative. Vital Signs Last 8 Hrs Date Time Temp Pulse Resp B/P (MAP) Pulse Ox O2 Delivery O2 Flow Rate FiO2 12/01/17 08:25 36.8 75 20 167/61 (96) 98 12/01/17 08:00 Room Air 12/01/17 04:00 Room Air 12/01/17 03:33 36.9 68 18 174/66 (102) 96 Room Air Last Recorded Weight Weight (Kilograms): 90.900 Physical Exam General Appearance: WD/WN, no apparent distress Head: normocephalic, atraumatic Eyes: normal inspection, sclerae normal ENT: normal ENT inspection, pharynx normal Neck: supple, no JVD Respiratory/Chest: lungs clear, no respiratory distress, no accessory muscle use Cardiovascular: regular rate, rhythm, no gallop, no murmur Abdomen/GI: non tender, soft Extremities/Musculoskelatal: normal inspection, no pedal edema, + pertinent finding (AVF with thrill and bruit) Neurologic/Psych: alert, normal mood/affect Family History Patient reports no known family medical history. Negative for CKD/ESRD Social History Smokeless Tobacco Use: No Alcohol Use: none Drug Use: none Marital Status: Housing Status: lives with family Occupation: retired . Retired. Never a smoker Laboratory Results Past 24 Hours 12/01/17 06:09 Red Blood Count 2.92, Mean Corpuscular Volume 91.4, Mean Corpuscular Hemoglobin 30.8, Mean Corpuscular Hemoglobin Concent 33.7, Mean Platelet Volume 8.8, Neutrophils (%) (Auto) 78.2, Lymphocytes (%) (Auto) 12.0, Monocytes (%) (Auto) 9.2, Eosinophils (%) (Auto) 0.2, Basophils (%) (Auto) 0.1, Neutrophils # (Auto) 7.55, Lymphocytes # (Auto) 1.16, Monocytes # (Auto) 0.89, Eosinophils # (Auto) 0.02, Basophils # (Auto) 0.01 12/01/17 06:09 Test 11/30/17 11:43 11/30/17 16:09 11/30/17 20:04 12/01/17 06:09 Bedside Glucose 212 mg/dl (70-99) 147 mg/dl (70-99) 155 mg/dl (70-99) White Blood Count 9.66 K/uL (4.8-10.8) Red Blood Count 2.92 M/uL (4.7-6.1) Hemoglobin 9.0 g/dL (14.0-18.0) Hematocrit 26.7 % (42-52) Mean Corpuscular Volume 91.4 fL (80-100) Mean Corpuscular Hemoglobin 30.8 pg (25-34) Mean Corpuscular Hemoglobin Concent 33.7 g/dl (32-36) Platelet Count 97 K/uL (130-400) Mean Platelet Volume 8.8 fL (7.4-10.4) Neutrophils (%) (Auto) 78.2 % Lymphocytes (%) (Auto) 12.0 % Monocytes (%) (Auto) 9.2 % Eosinophils (%) (Auto) 0.2 % Basophils (%) (Auto) 0.1 % Neutrophils # (Auto) 7.55 K/uL (1.4-6.5) Lymphocytes # (Auto) 1.16 K/uL (1.2-3.4) Monocytes # (Auto) 0.89 K/uL (0.11-0.59) Eosinophils # (Auto) 0.02 K/uL (0-0.5) Basophils # (Auto) 0.01 K/uL (0-0.2) RDW Standard Deviation 56.5 fL (36.4-46.3) RDW Coefficient of Variation 17.0 % (11.5-14.5) Immature Granulocyte % (Auto) 0.3 % Immature Granulocyte # (Auto) 0.03 K/uL (0.00-0.02) Anion Gap 10.0 mmol/L (3-11) Est Creatinine Clear Calc Drug Dose 8.4 ml/min Estimated GFR () 7.1 Estimated GFR (Non- 6.1 BUN/Creatinine Ratio 8.7 (10-20) Calcium Level 7.8 mg/dl (8.5-10.1) Total Bilirubin 0.5 mg/dl (0.2-1) Aspartate Amino Transf (AST/SGOT) 11 U/L (15-37) Alanine Aminotransferase (ALT/SGPT) 16 U/L (12-78) Alkaline Phosphatase 57 U/L (45-117) Total Protein 6.8 gm/dl (6.4-8.2) Albumin 2.9 gm/dl (3.4-5.0) Globulin 3.9 gm/dl (2.5-4.0) Albumin/Globulin Ratio 0.7 (0.9-2) Hepatitis B Surface Antigen NEG (NEG) Hepatitis B Surface Antibody NEG Test 12/01/17 06:30 Bedside Glucose 182 mg/dl (70-99) Allergies Coded Allergies: Clarithromycin (Verified Adverse Reaction, Intermediate, confusion, 11/14/17 ) Fish Oil (Verified Adverse Reaction, Intermediate, hx of hemorrage in past , 11/14/17) Sulfa Antibiotics (Verified Adverse Reaction, Intermediate, SEVERE AGITATION/DELIRIUM, 11/14/17) Medications Current Inpatient Medications Medications (Trade) Dose Ordered Sig/Kelsie Route Start Time Stop Time Status Last Admin Dose Admin Al Hydrox/Mg Hydrox/Simethicone (Maalox Max Susp) 15 ml Q4H PRN PO 11/22/17 23:30 12/22/17 23:29 Magnesium Hydroxide (Milk Of Magnesia Susp) 30 ml Q12H PRN PO 11/22/17 23:30 12/22/17 23:29 Ondansetron HCl (Zofran Inj) 4 mg Q6H PRN IV 11/22/17 23:30 12/22/17 23:29 Polyethylene (Miralax Powder Packet) 17 gm DAILY PRN PO 11/22/17 23:30 12/22/17 23:29 Calcium Acetate (Phoslo Cap) 667 mg TIDM PRN PO 11/23/17 07:30 12/23/17 07:29 Docusate Sodium (coLACE CAP) 100 mg BID PO 11/23/17 09:00 12/23/17 08:59 12/01/17 08:01 100 MG Folic Acid (Folvite Tab) 1 mg DAILY PO 11/23/17 09:00 3/12/18 08:59 12/01/17 08:01 1 MG Metoprolol Tartrate (Lopressor Tab) 25 mg HS PO 11/23/17 21:00 12/23/17 20:59 11/30/17 21:02 25 MG Metoprolol Tartrate (Lopressor Tab) 50 mg QAM PO 11/23/17 09:00 12/23/17 08:59 12/01/17 08:01 50 MG Multivitamins/ Minerals (Multivitamin W/ Minerals Tab) 1 tab DAILY PO 11/23/17 09:00 12/23/17 08:59 12/01/17 08:01 1 TAB Pravastatin Sodium (Pravachol Tab) 40 mg QPM PO 11/23/17 21:00 12/23/17 20:59 11/30/17 21:02 40 MG Insulin Aspart (novoLOG ASPART) SLIDING SCALE G... ACHS SC 11/23/17 07:00 12/23/17 06:59 12/01/17 08:05 6 UNITS Calcium Acetate (Phoslo Cap) 1,334 mg TIDM PO 11/23/17 07:30 12/23/17 07:29 12/01/17 08:01 1,334 MG Glucose (Glucose 40% Gel) 15-30 GRAMS 15 GRAMS... UD PRN PO 11/23/17 01:30 12/23/17 01:29 Glucose (Glucose Chew Tab) 4-8 Tablets 4 Tabl... UD PRN PO 11/23/17 01:30 12/23/17 01:29 Dextrose (Dextrose 50% 50ML Syringe) 25-50ML OF 50% DW IV FOR... UD PRN IV 11/23/17 01:30 12/23/17 01:29 Glucagon (Glucagon Inj) 1 mg UD PRN SQ 11/23/17 01:30 12/23/17 01:29 Metoprolol Tartrate (Lopressor Iv) 5 mg Q4 PRN IV 11/23/17 02:00 12/22/17 23:29 Pantoprazole Sodium (Protonix Tab) 40 mg BID PO 11/23/17 11:30 12/23/17 11:29 12/01/17 08:01 40 MG Insulin Aspart Prota 70%/Aspart 30% (novoLOG MIX 70/ 30) 54 units QDB SC 11/28/17 07:30 12/23/17 07:29 Insulin Aspart Prota 70%/Aspart 30% (novoLOG MIX 70/ 30) 58 units QDD SC 11/27/17 16:45 12/23/17 16:44 Sucralfate (Carafate Susp) 1 gm QID PO 11/29/17 17:00 12/29/17 16:59 12/01/17 08:00 1 GM Acetaminophen (Tylenol Tab) 650 mg Q4H PRN PO 11/30/17 21:30 12/30/17 21:29 12/01/17 08:10 650 MG Amlodipine Besylate (Norvasc Tab) 7.5 mg QAM PO 12/01/17 09:00 12/23/17 08:59 12/01/17 10:30 7.5 MG Impression (1) End-stage renal disease on hemodialysis (2) Symptomatic anemia (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 EGD revealed GAVE and an AVM which was cauterized. Repeat endoscopy scheduled for 4-6 weeks. Isidro is on HD MWF at [facility]. Recommendations ESRD: -- BP and volume status are currently appropriate -- Plan next HD for tomorrow per MWF schedule -- Electrolytes are acceptable -- Medications are appropriate for renal function -- Avoid additional use of mag citrate - electrolyte based laxatives should be used with caution - please consider Miralax as an alternative -- Renal diet Anemia: -- H/H stable -- Hemoglobin can be monitored in the outpatient setting during hemodialysis Hypertension: -- Controlled. No changes at this time.
[2017-12-01 10:51] VITALS: BP 150/61; PULSE 61; TEMP 36.9; O2SAT 100
--- NOTE | 2017-12-01 13:00 | Gastroenterology Progress Note ---
Progress Note Date of Service: Dec 01, 2017 Subjective Pt evaluation today including: conversation w/ patient, physical exam, chart review, lab review, review of studies, review of inpatient medication list CC f/u GI bleeding HPI Stools now brown. No abd pain. Review of Systems Respiratory: No shortness of breath Cardiac: No chest pain Medications Current Inpatient Medications Medications (Trade) Dose Ordered Sig/Kelsie Route Start Time Stop Time Status Last Admin Dose Admin Al Hydrox/Mg Hydrox/Simethicone (Maalox Max Susp) 15 ml Q4H PRN PO 11/22/17 23:30 12/22/17 23:29 Magnesium Hydroxide (Milk Of Magnesia Susp) 30 ml Q12H PRN PO 11/22/17 23:30 12/22/17 23:29 Ondansetron HCl (Zofran Inj) 4 mg Q6H PRN IV 11/22/17 23:30 12/22/17 23:29 Polyethylene (Miralax Powder Packet) 17 gm DAILY PRN PO 11/22/17 23:30 12/22/17 23:29 Calcium Acetate (Phoslo Cap) 667 mg TIDM PRN PO 11/23/17 07:30 12/23/17 07:29 Docusate Sodium (coLACE CAP) 100 mg BID PO 11/23/17 09:00 12/23/17 08:59 12/01/17 08:01 100 MG Folic Acid (Folvite Tab) 1 mg DAILY PO 11/23/17 09:00 12/23/17 08:59 12/01/17 08:01 1 MG Metoprolol Tartrate (Lopressor Tab) 25 mg HS PO 11/23/17 21:00 12/23/17 20:59 11/30/17 21:02 25 MG Metoprolol Tartrate (Lopressor Tab) 50 mg QAM PO 11/23/17 09:00 12/23/17 08:59 12/01/17 08:01 50 MG Multivitamins/ Minerals (Multivitamin W/ Minerals Tab) 1 tab DAILY PO 11/23/17 09:00 12/23/17 08:59 12/01/17 08:01 1 TAB Pravastatin Sodium (Pravachol Tab) 40 mg QPM PO 11/23/17 21:00 12/23/17 20:59 11/30/17 21:02 40 MG Insulin Aspart (novoLOG ASPART) SLIDING SCALE G... ACHS SC 11/23/17 07:00 12/23/17 06:59 12/01/17 12:28 7 UNITS Calcium Acetate (Phoslo Cap) 1,334 mg TIDM PO 11/23/17 07:30 12/23/17 07:29 12/01/17 12:25 1,334 MG Glucose (Glucose 40% Gel) 15-30 GRAMS 15 GRAMS... UD PRN PO 11/23/17 01:30 12/23/17 01:29 Glucose (Glucose Chew Tab) 4-8 Tablets 4 Tabl... UD PRN PO 11/23/17 01:30 12/23/17 01:29 Dextrose (Dextrose 50% 50ML Syringe) 25-50ML OF 50% DW IV FOR... UD PRN IV 11/23/17 01:30 12/23/17 01:29 Glucagon (Glucagon Inj) 1 mg UD PRN SQ 11/23/17 01:30 12/23/17 01:29 Metoprolol Tartrate (Lopressor Iv) 5 mg Q4 PRN IV 11/23/17 02:00 12/22/17 23:29 Pantoprazole Sodium (Protonix Tab) 40 mg BID PO 11/23/17 11:30 12/23/17 11:29 12/01/17 08:01 40 MG Insulin Aspart Prota 70%/Aspart 30% (novoLOG MIX 70/ 30) 54 units QDB SC 11/28/17 07:30 12/23/17 07:29 Insulin Aspart Prota 70%/Aspart 30% (novoLOG MIX 70/ 30) 58 units QDD SC 11/27/17 16:45 12/23/17 16:44 Sucralfate (Carafate Susp) 1 gm QID PO 11/29/17 17:00 12/29/17 16:59 12/01/17 12:25 1 GM Acetaminophen (Tylenol Tab) 650 mg Q4H PRN PO 11/30/17 21:30 12/30/17 21:29 12/01/17 08:10 650 MG Amlodipine Besylate (Norvasc Tab) 7.5 mg QAM PO 12/01/17 09:00 12/23/17 08:59 12/01/17 10:30 7.5 MG Objective Vital Signs Date Time Temp Pulse Resp B/P (MAP) Pulse Ox O2 Delivery O2 Flow Rate FiO2 12/01/17 10:51 36.9 61 20 150/61 (90) 100 12/01/17 08:25 36.8 75 20 167/61 (96) 98 12/01/17 08:00 Room Air 12/01/17 04:00 Room Air 12/01/17 03:33 36.9 68 18 174/66 (102) 96 Room Air 12/01/17 00:26 37.5 69 18 141/51 (81) 97 Room Air 11/30/17 23:59 Room Air 11/30/17 20:37 37.0 92 18 162/90 (114) 96 Room Air 11/30/17 20:00 Room Air 11/30/17 16:00 Room Air 11/30/17 15:15 37.1 74 20 144/57 (86) 97 Room Air 11/30/17 13:12 37.5 69 20 146/65 (92) 96 Room Air Physical Exam General Appearance: WD/WN, no apparent distress Respiratory/Chest: lungs clear, no respiratory distress Cardiovascular: no murmur Abdomen: normal bowel sounds, non tender, soft, no organomegaly, no pulsatile mass Neurologic/Psych: alert, normal mood/affect, oriented x 3 Skin: no jaundice, warm/dry Laboratory Results Last 24 Hours Test 11/30/17 16:09 11/30/17 20:04 12/01/17 06:09 12/01/17 06:30 Bedside Glucose 147 mg/dl 155 mg/dl 182 mg/dl White Blood Count 9.66 K/uL Red Blood Count 2.92 M/uL Hemoglobin 9.0 g/dL Hematocrit 26.7 % Mean Corpuscular Volume 91.4 fL Mean Corpuscular Hemoglobin 30.8 pg Mean Corpuscular Hemoglobin Concent 33.7 g/dl Platelet Count 97 K/uL Mean Platelet Volume 8.8 fL Neutrophils (%) (Auto) 78.2 % Lymphocytes (%) (Auto) 12.0 % Monocytes (%) (Auto) 9.2 % Eosinophils (%) (Auto) 0.2 % Basophils (%) (Auto) 0.1 % Neutrophils # (Auto) 7.55 K/uL Lymphocytes # (Auto) 1.16 K/uL Monocytes # (Auto) 0.89 K/uL Eosinophils # (Auto) 0.02 K/uL Basophils # (Auto) 0.01 K/uL RDW Standard Deviation 56.5 fL RDW Coefficient of Variation 17.0 % Immature Granulocyte % (Auto) 0.3 % Immature Granulocyte # (Auto) 0.03 K/uL Sodium Level 135 mmol/L Potassium Level 4.8 mmol/L Chloride Level 98 mmol/L Carbon Dioxide Level 27 mmol/L Anion Gap 10.0 mmol/L Blood Urea Nitrogen 65 mg/dl Creatinine 7.46 mg/dl Est Creatinine Clear Calc Drug Dose 8.4 ml/min Estimated GFR () 7.1 Estimated GFR (Non- 6.1 BUN/Creatinine Ratio 8.7 Random Glucose 162 mg/dl Calcium Level 7.8 mg/dl Total Bilirubin 0.5 mg/dl Aspartate Amino Transf (AST/SGOT) 11 U/L Alanine Aminotransferase (ALT/SGPT) 16 U/L Alkaline Phosphatase 57 U/L Total Protein 6.8 gm/dl Albumin 2.9 gm/dl Globulin 3.9 gm/dl Albumin/Globulin Ratio 0.7 Hepatitis B Surface Antigen NEG Hepatitis B Surface Antibody NEG Test 12/01/17 11:47 Bedside Glucose 208 mg/dl Assessment and Plan Acute blood loss anemia--stable----stable GI bleeding--melena and rectal bleeding-- resolved s/p EGD times two and colo. Jejunal lesion most brisk bleeding and hopefully is main issue and now fixed. 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 Await repeat path from 11/30/17 but can be viewed again in 4 weeks at EGD hx of colon polyps--colo 11/25/17 showed tubular adenoma of ascending colon Other problems per hospitalist afib, ESRD on dialysis. , DM, HTN Discussed with DR Cortez and DR Stiven herring for DC today with outpt EGD with DR Calderon. Recommend continue PPI and Carafate on DC. Will sign off.
[2017-12-01] MEDS ORDERED: SUCR1TAB29 PO (13:46)
[2017-12-01] MEDS ORDERED: PRT40 PO (13:46)
[2017-12-01 13:50] VITALS: BP 150/61; PULSE 61; TEMP 36.9; O2SAT 100
--- NOTE | 2017-12-01 14:16 | Discharge Instructions ---
Discharge Instructions Date of Service Dec 01, 2017. Admission Reason for Admission: Fatigue, Shortness Of Beath Discharge Discharge Diagnosis / Problem: Fatigue, Shortness of Breath, GI Bleed Discharge Goals Goal(s): Decrease discomfort, Improve function, Increase independence, Improve disease control, Improve nutritional status, Learn about illness, Diagnostic testing, Therapeutic intervention Activity Recommendations Activity Limitations: resume your previous activity . Instructions / Follow-Up Instructions / Follow-Up You were admitted for weakness and shortness of breath. You were found to have anemia due to bleeding from your gastrointestinal tract, which is why you noted dark stools in the past. You were transfused with blood, and we had gastroenterology assess you. They did a scope as you recall, found a possible source of bleeding in your duodenum, and were able to stop that bleeding. However, as discussed, they are not able to check the entire tract with a scope , so we kept an eye on your hemoglobin and your stool. Your stool on discharge is normal in color and your blood count indicates no more active bleeding at this time. Please continue your home medications for your conditions of renal disease, diabetes, hypertension and high cholesterol. Please begin taking the new medications - Protonix which is an acid lean engineer to prevent/treat ulcers, and also Carafate tablets which also protects the GI tract. Please call Dr. Calderon's office in order to be seen for a repeat endoscopy, which will be done in about 4 weeks. Please continue your dialysis as scheduled. Nephrology will monitor your anemia during your dialysis. We recommend you schedule a follow up with your primary care physician in the next 1-3 days to discuss this hospital stay. Thank you for allowing us to participate in your care. Current Hospital Diet Patient's current hospital diet: Diabetes Type 2 Diet Discharge Diet Recommended Diet: Diabetes Type 2 Diet Procedures Procedures Performed: Esophagogastroduodenoscopy W/Biopsies, APC and Tattoo Pending Studies Studies pending at discharge: no Medical Emergencies . Who to Call and When: Medical Emergencies: If at any time you feel your situation is an emergency, please call 911 immediately. . Non-Emergent Contact Non-Emergency issues call your: Primary Care Provider, Refinery Pipeline Operator Call Non-Emergent contact if: temperature is above 101, your pain is concerning you, you have any medication questions . . "Provider Documentation" section prepared by Karla Saleem. . VTE Core Measure Inpt VTE Proph given/why not?: Contraindicated
--- NOTE | 2017-12-01 21:56 | Discharge Summary ---
Discharge Summary Date of Service Dec 01, 2017. 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 Recently bleeding erosive gastropathy. Treated with argon plasma coagulation (APC). Nodule found in the duodenum. Biopsied. Single bleeding angioectasia in jejunum. Treated with APC. Tattooed. Consultations: Gastroenterology Nephrology Discharge Exam Assessed pt while he sat in his chair, sitting comfortably. Reports brown bowel movement in the AM. Confirmed by nurse. Eating and drinking with no issues. Denies blood in urine or stool. Is otherwise feeling well. Denies chest pain, SOB, headaches, abdominal pain, dysuria or pain or swelling in lower extremities. ROS See HPI for pertinent positives and negatives. PHYSICAL EXAM: AFVSS GENERAL: Awake, alert, well-appearing, in no distress HENT: Normocephalic, atraumatic. EYES: Normal conjunctiva. Sclera non-icteric. RESPIRATORY: Clear to auscultation. CARDIAC: Regular rate, normal rhythm. Extremities warm and well perfused. Pulses equal. ABDOMEN: Soft, non-distended. No tenderness to palpation. No rebound or guarding. No masses. LOWER EXTREMITIES: Calves are equal size bilaterally and non-tender. No edema. No discoloration. Healing scabs on shins bilaterally. NEURO: No motor deficits noted. SKIN: No rash or jaundice noted. Hospital Course Mr. 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 Was found to have a hgb of 7.1 and had been having dark stools. 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 Stable. - follow H&H and transfuse as needed. - GI consulted - - continue PPI (pantoprazole 40mg BID) and Carafate daily. - EGD shows possible source of bleeding; cautery performed; colonoscopy showed internal hemorrhoids and radiation proctitis but was not great prep - Repeat EGD/colonoscopy in 4 weeks. EKG Changes - initial EKG read was atrial fibrillation, however patient was never in atrial fibrillation, but rather sinus rhythm w/PACs - continue to monitor - Discussion has been had with patient regarding risks/benefits of treating afib vs risk without anticoag. Not currently candidate for anticoag. ESRD with dialysis - Dialysis on Sat, Sat and Saturday. No cycles missed during admission. - monitor I/O's - Per inpatient nephrology: - volume status and electrolyte balance acceptable - no need for urgent HD, will resume HD as per schedule - monitor BMP, avoid IVF, dose meds to GFR <10 - 1 unit transfused during dialysis yesterday DM2 - last Hba1c was 5.6 in August - continue home regimen of 70/30 insulin HTN - continue home metoprolol and amlodipine HLD - continue statin Hx of prostate CA - local to prostate, had prostatectomy - no recurrence since Pulmonary nodules - lesions noted in lungs on CT scan -> increasing in size since scan in 2012. He is aware of these and used to follow with Dr. Jackson - will require outpatient f/u and monitoring DVT prophylaxis: contraindicated due to GI bleed, no SCD due to venous skin changes Code: Full code, no mechanical vent or cardioversion Thank you for allowing us to participate in Mr. Madden's care. Total Time Spent: Greater than 30 minutes This includes examination of the patient, discharge planning, medication reconciliation, and communication with other providers. Discharge Instructions Please refer to the electronic Patient Visit Report (Discharge Instructions) for additional information. Additional Copies To Noel Raymundo M.D. Resident Tracking Resident Involvement: Resident Care Provided Care Provided: Adult [facility]
[2017-12-26] MEDS ORDERED: PANT40TA PO (09:53)
[2017-12-26] MEDS ORDERED: SUCR1TAB29 PO (09:53)
[2017-12-26] MEDS ORDERED: DEXT5LIQ23 PO (10:02)
== END 2017-12-01 15:04 | disposition home or self-care (01) | DRG 391 ==
LOC: C.EDB 16:37 → C.2T 23:33 → ENRESERV 23:49
PROVIDERS: ADMIT Hospitalist; ATTEND Hospitalist
PROC: 0D568ZZ Destruction of Stomach, Via Natural or Artificial Opening Endoscopic (ICD-10-PCS; principal; 2017-11-25 15:30)
PROC: 0DBK8ZX Excision of Ascending Colon, Via Natural or Artificial Opening Endoscopic, Diagnostic (ICD-10-PCS; principal; 2017-11-25 15:30)
DX: K31.819 Angiodysplasia of stomach and duodenum without bleeding (principal); N18.6 End stage renal disease; K92.2 Gastrointestinal hemorrhage, unspecified; D62 Acute posthemorrhagic anemia; I12.0 Hypertensive chronic kidney disease with stage 5 chronic kidney disease or end stage renal disease; I48.91 Unspecified atrial fibrillation; R91.8 Other nonspecific abnormal finding of lung field; K62.7 Radiation proctitis; E11.22 Type 2 diabetes mellitus with diabetic chronic kidney disease; I25.2 Old myocardial infarction; Z86.73 Personal history of transient ischemic attack (TIA), and cerebral infarction without residual deficits; Z79.82 Long term (current) use of aspirin; Z88.2 Allergy status to sulfonamides; Z79.4 Long term (current) use of insulin; Z99.2 Dependence on renal dialysis; E78.5 Hyperlipidemia, unspecified; Z82.49 Family history of ischemic heart disease and other diseases of the circulatory system; Z80.42 Family history of malignant neoplasm of prostate; Z85.46 Personal history of malignant neoplasm of prostate; Z90.79 Acquired absence of other genital organ(s)

== ENCOUNTER → 2017-12-10 | Outpatient (CLI) | payer OTHER, BC ==
[~2017-12-10] MED LIST changes: -AMLO-110 PO; -ASPCH81X PO; +ASPI81TA28 PO; +CALC667C PO; -CALC667C4 PO; +FLV1 PO; -FOLI1TAB8 PO; +INSUINJ13 SC; +MULT-648 PO; +NRV/5 PO; +PRAV40TA2 PO; +PRT40 PO; +SUCR1TAB29 PO
[2017-12-11 07:12] LABS: HEMOGLOBIN A1C 5.6 % (4.5-5.6)
== END | disposition home or self-care (01) ==
LOC: C.LABPBG 12:09
PROVIDERS: ATTEND Nurse Practitioner Family
DX: E11.49 Type 2 diabetes mellitus with other diabetic neurological complication (principal); M19.90 Unspecified osteoarthritis, unspecified site; R94.6 Abnormal results of thyroid function studies; E11.22 Type 2 diabetes mellitus with diabetic chronic kidney disease; N18.5 Chronic kidney disease, stage 5; K92.2 Gastrointestinal hemorrhage, unspecified; D64.9 Anemia, unspecified; M10.9 Gout, unspecified

== ENCOUNTER → 2018-01-09 | Day surgery (SDC) | payer OTHER, BC ==
[~2018-01-09] VITALS: Ht 175.3 cm; Wt 94.5 kg
[~2018-01-09] MED LIST changes: +DEXT5LIQ23 PO; +EpHEDrine SULFATE 50MG/5ML SYR ONE; +LIDOCAINE HCL 2% 2 ML VIAL (20MG/ML) ONE; +METHYLENE BLUE 0.5% 10 ML VIAL ONE; +PANT40TA PO; +PHENYLEPHRINE 100MCG/ML 5ML SYR ONE; +PROPOFOL IV EMULSION 10 MG/ML 20 ML VIAL IV ONE; -PRT40 PO; +SODIUM CHLORIDE 0.9% 500ML 500 ML IV ONE
[2018-01-09 13:09] VITALS: Ht 175.3 cm; Wt 94.5 kg
--- NOTE | 2018-01-09 13:18 | Endo History and Physical ---
History & Physical Date of Service: Jan 09, 2018. Chief Complaint: duodenal nodule Referring Physician: Dr Rosa History of Present Illness duodenal nodule Past Medical History Diabetes, Arthritis, Cancer, High Cholesterol, Hypertension, Kidney Disease, CVA /TIA, [place] Past Surgical History Hx Cardiac Surgery: Yes (HEART CATH X3, NO STENTS) Hx Internal Defibrillator: No Hx Pacemaker: No Hx Abdominal Surgery: Yes (COLON RESECTION) Hx of Implantable Prosthesis: No Hx Post-Op Nausea and Vomiting: No Hx Cancer Surgery: Yes (PROSTATECTOMY) Hx Thoracic Surgery: Yes (LT KNEE SCOPE, LT HAND FINGER REPAIR AND PARTIAL AMPUTATION R/T TRAUMA) Hx Orthopedic: No Hx Urinary Tract Surgery: No Family History None Social History Smoking Status: Never Smoker Hx Substance Use: No Hx Alcohol Use: No Allergies Coded Allergies: Clarithromycin (Verified Adverse Reaction, Intermediate, confusion, ) Fish Oil (Verified Adverse Reaction, Intermediate, hx of hemorrage in past , 12/26/17) Sulfa Antibiotics (Verified Adverse Reaction, Intermediate, SEVERE AGITATION/DELIRIUM, 12/26/17) Current Medications Reported Home Medications Medications Dose Route/Sig Max Daily Dose Days Date Category Dose Instructions Delsym (Dextromethorphan Polistirex) 30 Mg/5 Ml Liq 5 Ml PO UD PRN 12/26/17 Reported Carafate (Sucralfate) 1 Gm Tab 1 Gm PO QID 12/26/17 Reported Protonix (Pantoprazole Sodium) 40 Mg Tab 40 Mg PO BID 12/26/17 Reported Prorenal Vital (Multiple Vitamins W/ Minerals) 1 Tab Tab 1 Tab PO DAILY 11/22/17 Reported Folic Acid 1 Mg Tab 1 Mg PO QAM 11/22/17 Reported Amlodipine Besylate 5 Mg Tab 5 Mg PO QAM 11/22/17 Reported HOLD FOR SYSTOLIC BLOOD PRESSURE LESS THAN 120 Phoslo 667 Mg (Calcium Acetate (Phosphate Bin) 667 Mg Cap 667 Mg PO UD 11/22/17 Reported TAKE TWO CAPS WITH MEALS AND 1 CAP WITH SNACKS Novolog Mix 70/30 Prefill (Insulin Aspart Protamine & Asp) 1 Inj Inj 58 Units SC QAM 11/22/17 Reported ADMINISTER BEFORE BREAKFAST Aspirin Ec (Aspirin) 81 Mg Tab 81 Mg PO MWF 11/22/17 Reported Colace (Docusate Sodium) 100 Mg Cap 100 Mg PO BID 07/23/17 Reported Lopressor (Metoprolol Tartrate) 25 Mg Tab 50 Mg PO QAM 06/26/16 Reported Lopressor (Metoprolol Tartrate) 25 Mg Tab 25 Mg PO HS 01/17/16 Reported Pravastatin Sodium 40 Mg Tab 40 Mg PO QPM 04/20/15 Reported Novolog Mix 70/30 (Insulin Aspart Prota 70%/Aspart 30%) Susp 65 Units SC BEFORE SUPPER 04/20/15 Reported ADMINISTER BEFORE EVENING MEAL, ADJUST NEEDED Vital Signs Weight (Kilograms): 94.55 Height (Feet): 5 Height (Inches): 9 Date Time Temp Pulse Resp B/P (MAP) Pulse Ox O2 Delivery O2 Flow Rate FiO2 01/09/18 13:08 36.4 79 18 166/68 (100) 98 Room Air Physical Exam General Appearance: WD/WN, no apparent distress Respiratory/Chest: Auscultation: breath sounds normal Cardiovascular: Heart Auscultation: RRR Abdomen: Bowel Sounds: normal Inspection & Palpation: soft, non-distended, no tenderness, guarding & rebound Assessment and Plan EGD with possible [facility] Ablation of AVM as needed rojas
[2018-01-09 14:15] LABS: ISTAT CREATININE 5.1 mg/dl (0.6-1.3); ISTAT IONIZED CALCIUM 0.99 mmol/l (1.12-1.32); ISTAT POTASSIUM 4.4 mEq/L (3.3-5.0)
--- NOTE | 2018-01-09 14:40 | Discharge Instructions ---
Endoscopy Patient Instructions Date / Procedure(s) Performed Jan 09, 2018. EGD Allergy Information Coded Allergies: Clarithromycin (Verified Adverse Reaction, Intermediate, confusion, ) Fish Oil (Verified Adverse Reaction, Intermediate, hx of hemorrage in past , 12/26/17) Sulfa Antibiotics (Verified Adverse Reaction, Intermediate, SEVERE AGITATION/DELIRIUM, 12/26/17) Discharge Date / Findings Jan 09, 2018. 1) duodenal polyp- EMR 2)prominent minor ampulla - biopsied 3) HH Medication Instructions Stopped Medication(s): TAKES ASPIRIN DAILY-LAST DOSE 01/08/18 Restart Stopped Medication(s): Reported Home Medications Medications Dose Route/Sig Max Daily Dose Days Date Category Dose Instructions Delsym (Dextromethorphan Polistirex) 30 Mg/5 Ml Liq 5 Ml PO UD PRN 12/26/17 Reported Carafate (Sucralfate) 1 Gm Tab 1 Gm PO QID 12/26/17 Reported Protonix (Pantoprazole Sodium) 40 Mg Tab 40 Mg PO BID 12/26/17 Reported Prorenal Vital (Multiple Vitamins W/ Minerals) 1 Tab Tab 1 Tab PO DAILY 11/22/17 Reported Folic Acid 1 Mg Tab 1 Mg PO QAM 11/22/17 Reported Amlodipine Besylate 5 Mg Tab 5 Mg PO QAM 11/22/17 Reported HOLD FOR SYSTOLIC BLOOD PRESSURE LESS THAN 120 Phoslo 667 Mg (Calcium Acetate (Phosphate Bin) 667 Mg Cap 667 Mg PO UD 11/22/17 Reported TAKE TWO CAPS WITH MEALS AND 1 CAP WITH SNACKS Novolog Mix 70/30 Prefill (Insulin Aspart Protamine & Asp) 1 Inj Inj 58 Units SC QAM 11/22/17 Reported ADMINISTER BEFORE BREAKFAST Aspirin Ec (Aspirin) 81 Mg Tab 81 Mg PO MWF 11/22/17 Reported Colace (Docusate Sodium) 100 Mg Cap 100 Mg PO BID 07/23/17 Reported Lopressor (Metoprolol Tartrate) 25 Mg Tab 50 Mg PO QAM 06/26/16 Reported Lopressor (Metoprolol Tartrate) 25 Mg Tab 25 Mg PO HS 01/17/16 Reported Pravastatin Sodium 40 Mg Tab 40 Mg PO QPM 04/20/15 Reported Novolog Mix 70/30 (Insulin Aspart Prota 70%/Aspart 30%) Susp 65 Units SC BEFORE SUPPER 7/8/15 Reported ADMINISTER BEFORE EVENING MEAL, ADJUST NEEDED Reported Home Medications Medications Dose Route/Sig Max Daily Dose Days Date Category Dose Instructions Delsym (Dextromethorphan Polistirex) 30 Mg/5 Ml Liq 5 Ml PO UD PRN 12/26/17 Reported Carafate (Sucralfate) 1 Gm Tab 1 Gm PO QID 12/26/17 Reported Protonix (Pantoprazole Sodium) 40 Mg Tab 40 Mg PO BID 12/26/17 Reported Prorenal Vital (Multiple Vitamins W/ Minerals) 1 Tab Tab 1 Tab PO DAILY 11/22/17 Reported Folic Acid 1 Mg Tab 1 Mg PO QAM 11/22/17 Reported Amlodipine Besylate 5 Mg Tab 5 Mg PO QAM 11/22/17 Reported HOLD FOR SYSTOLIC BLOOD PRESSURE LESS THAN 120 Phoslo 667 Mg (Calcium Acetate (Phosphate Bin) 667 Mg Cap 667 Mg PO UD 11/22/17 Reported TAKE TWO CAPS WITH MEALS AND 1 CAP WITH SNACKS Novolog Mix 70/30 Prefill (Insulin Aspart Protamine & Asp) 1 Inj Inj 58 Units SC QAM 11/22/17 Reported ADMINISTER BEFORE BREAKFAST Aspirin Ec (Aspirin) 81 Mg Tab 81 Mg PO MWF 11/22/17 Reported Colace (Docusate Sodium) 100 Mg Cap 100 Mg PO BID 07/23/17 Reported Lopressor (Metoprolol Tartrate) 25 Mg Tab 50 Mg PO QAM 06/26/16 Reported Lopressor (Metoprolol Tartrate) 25 Mg Tab 25 Mg PO HS 01/17/16 Reported Pravastatin Sodium 40 Mg Tab 40 Mg PO QPM 04/20/15 Reported Novolog Mix 70/30 (Insulin Aspart Prota 70%/Aspart 30%) Susp 65 Units SC BEFORE SUPPER 04/20/15 Reported ADMINISTER BEFORE EVENING MEAL, ADJUST NEEDED Provider Instructions Activity Restrictions - No exercising or heavy lifting for 24 hours. - Do not drink alcohol the day of the procedure. - Do not drive a car or operate machinery until the day after the procedure. - Do not make any important decisions or sign important papers in 24 hours after the procedure. Following Day: - Return to full activity which may include returning to work/school. Diet Start your diet with liquids and light foods (jello, soup, juice, toast). Then eat your usual diet if not nauseated. Treatment For Common After Affects For mild abdominal pain, bloating, or excessive gas: - Rest - Eat lightly - Lie on right side Follow-Up Information Follow-up with DR ADRIANNA TEMPLETON as scheduled Anesthesia Information What You Should Know You have had a procedure that required some medicine to reduce anxiety and discomfort. This treatment is called moderate sedation. After receiving the treatment, you may be sleepy, but you will be able to breathe on your own. The effects of the treatment may last for several hours. Follow these instructions along with Activity/Diet recommendations noted above: * Do NOT do anything where dizziness or clumsiness would be dangerous. * Rest quietly at home today, then you can be up and about tomorrow. * Have a responsible person stay with you the rest of today. * You may have had an I.V. today. If so, you may take the dressing off later today. Recommendations Call your doctor if: * Trouble breathing * Continuous vomiting for more than 24 hours * Temperature above 101 degrees * Severe abdominal pain or bloating * Pain not relieved by pain medicine ordered * There is increased drainage or redness from any incision * A large amount of rectal bleeding greater than 2-3 tablespoons. (If you had a polyp/s removed or have hemorrhoids, a small amount of blood - from the rectum is to be expected.) * You have any unanswered questions or concerns. IN THE EVENT OF A SERIOUS EMERGENCY, GO TO THE NEAREST EMERGENCY ROOM Your discharge instructions were prepared by provider Hasmukh Calderon. Patient Instructions Signature Page Isidro Maryanne Patient (or Guardian) Signature/Date: I have read and understand the instructions given to me by my caregivers. Caregiver/RN/Doctor Signature/Date: The above-named patient and/or guardian has received patient instructions on this date. + Original Patient Signature Page (only) stays with chart. Please make copy for patient.
--- NOTE | 2018-01-09 15:00 | GI REPORT ---
Procedure Date: 01/09/2018 1:48 PM Procedure: Upper GI endoscopy Indications: Therapeutic procedure, duodenal nodules Medicines: Propofol per Anesthesia Complications: No immediate complications. Estimated blood loss: Minimal. Estimated Blood Loss: Estimated blood loss was minimal. Procedure: Pre-Anesthesia Assessment: - Prior to the procedure, a History and Physical was performed, and patient medications and allergies were reviewed. The patient's tolerance of previous anesthesia was also reviewed. The risks and benefits of the procedure and the sedation options and risks were discussed with the patient. All questions were answered, and informed consent was obtained. Prior Anticoagulants: The patient has taken no previous anticoagulant or antiplatelet agents. ASA Grade Assessment: IV - A patient with severe systemic disease that is a constant threat to life. After reviewing the risks and benefits, the patient was deemed in satisfactory condition to undergo the procedure. After obtaining informed consent, the endoscope was passed under direct vision. Throughout the procedure, the patient's blood pressure, pulse, and oxygen saturations were monitored continuously. The Scope was introduced through the mouth, and advanced to the third part of duodenum. The upper GI endoscopy was accomplished without difficulty. The patient tolerated the procedure well. Side viewer also used to examine area. Findings: The examined esophagus was normal. A medium-sized hiatal hernia was found. The proximal extent of the gastric folds (end of tubular esophagus) was 40 cm from the incisors. The hiatal narrowing was 45 cm from the incisors. The Z-line was 40 cm from the incisors. The entire examined stomach was normal. A single 10 mm sessile polyp with no bleeding was found in the second portion of the duodenum. Area was successfully injected with 6 mL saline with methylene blue for a lift polypectomy/EMR. The polyp was removed with a hot snare. Resection and retrieval were complete. Estimated blood loss: none. Verification of patient identification for the specimen was done by the physician and water and fire technician using the patient's name and medical record number. Localized moderate mucosal changes characterized by congestion were found in the area of the minor papilla. Biopsies were taken with a cold forceps for histology. Estimated blood loss was minimal. Verification of patient identification for the specimen was done by the physician and water and fire technician using the patient's name and medical record number. The area of the papilla was normal. Retained gastric contents are not identified on this exam. The cardia and gastric fundus were normal on retroflexion. -EMR performed. Impression: - Normal esophagus. - Medium-sized hiatal hernia. - Normal stomach. - A single duodenal polyp. Resected and retrieved. Injected. - Mucosal changes in the duodenum. Biopsied. - Normal area of the papilla. Recommendation: - Discharge patient to home (ambulatory). - Resume regular diet. - Continue present medications. - Await pathology results. - Return to GI clinic as previously scheduled. MD Hasmukh High MD 01/09/2018 2:59:16 PM This report has been signed electronically. Note Initiated On: 01/09/2018 1:48 PM I attest to the content of the Intraoperative Record and orders documented therein, exceptions below
--- NOTE | 2018-01-09 15:03 | Anesthesiology Progress Note ---
Anesthesia Post Op Note Date & Time Jan 09, 2018 at 15:03 Vital Signs Pain Intensity: 0 Vital Signs Past 12 Hours Date Time Temp Pulse Resp B/P (MAP) Pulse Ox O2 Delivery O2 Flow Rate FiO2 01/09/18 15:00 83 20 124/50 (74) 95 Room Air 01/09/18 14:48 88 20 126/50 (75) 95 Room Air 01/09/18 13:08 36.4 79 18 166/68 (100) 98 Room Air Notes Mental Status: alert / awake / arousable, participated in evaluation Pt Amnestic to Procedure: Yes Nausea / Vomiting: adequately controlled Pain: adequately controlled Airway Patency, RR, SpO2: stable & adequate BP & HR: stable & adequate Hydration State: stable & adequate Anesthetic Complications: no major complications apparent
[2018-01-09 15:15] VITALS: BP 123/47; PULSE 86; O2SAT 97
== END | disposition home or self-care (01) ==
LOC: C.GI 12:31
PROVIDERS: ATTEND Internal Medicine Gastroenterology
DX: K26.9 Duodenal ulcer, unspecified as acute or chronic, without hemorrhage or perforation (principal); K44.9 Diaphragmatic hernia without obstruction or gangrene; K31.7 Polyp of stomach and duodenum; I25.2 Old myocardial infarction; I25.10 Atherosclerotic heart disease of native coronary artery without angina pectoris; I12.0 Hypertensive chronic kidney disease with stage 5 chronic kidney disease or end stage renal disease; N18.6 End stage renal disease; Z99.2 Dependence on renal dialysis; E11.9 Type 2 diabetes mellitus without complications; E78.00 Pure hypercholesterolemia, unspecified; Z98.890 Other specified postprocedural states; Z86.73 Personal history of transient ischemic attack (TIA), and cerebral infarction without residual deficits; Z90.89 Acquired absence of other organs; Z88.1 Allergy status to other antibiotic agents; Z88.2 Allergy status to sulfonamides; Z79.82 Long term (current) use of aspirin; Z79.4 Long term (current) use of insulin

== ENCOUNTER → 2018-01-22 | Outpatient (CLI) | payer OTHER, BC ==
[~2018-01-22] MED LIST changes: -EpHEDrine SULFATE 50MG/5ML SYR ONE; -LIDOCAINE HCL 2% 2 ML VIAL (20MG/ML) ONE; -METHYLENE BLUE 0.5% 10 ML VIAL ONE; -PHENYLEPHRINE 100MCG/ML 5ML SYR ONE; -PROPOFOL IV EMULSION 10 MG/ML 20 ML VIAL IV ONE; -SODIUM CHLORIDE 0.9% 500ML 500 ML IV ONE
--- NOTE | 2018-01-22 13:40 | DIAGNOSTIC IMAGING REPORT ---
PET/CT HISTORY: R91.1 SOLITARY PULMONARY NODULE TECHNIQUE: PET/CT was performed from the base of the skull through the pelvis following the intravenous administration of 14.7 mCi of F18-FDG. Non-contrast CT imaging was performed over the same range without breath-hold for attenuation correction of PET images and anatomic correlation, but not for primary interpretation as it is not of standard diagnostic quality. CT DOSE: COMPARISON: Chest CT 11/22/2017. PET CT 03/03/2012. FINDINGS: HEAD AND NECK: There is no FDG-avid disease or significant lymphadenopathy in the imaged portions of the head and the neck. The enlarged thyroid gland/goiter is again noted. CHEST: Multiple scattered irregular nodules seen are throughout the lungs. In total there are greater than 20 nodules. These have slightly increased in size and number compared to the 2012 examination. Dominant nodules within the lung bases measuring 1.9 cm on the left and 1.8 cm on the right. These are best seen on image 119. These lesions previously measured subcentimeter in size. The majority of the lesions greater than 1 cm demonstrate mild FDG uptake. The 1.8 cm lesion within the base of the right lower lobe posteriorly demonstrates moderate FDG uptake with an SUV max of 4. These dominant nodules demonstrate above average density measuring average Hounsfield units of 72. The subcentimeter nodules the base of the right lower lobe on image 160 appears to be cavitary. There are scattered blebs within the lungs. No FDG avid or enlarged mediastinal or hilar lymph nodes. ABDOMEN/PELVIS: Below the diaphragm, tracer is distributed physiologically in the gastrointestinal and genitourinary tracts. There is no significant lymphadenopathy and no FDG-avid disease. Cirrhotic liver. The gallbladder remains mildly distended. There are few scattered hypodense lesions within the liver. These are not significantly changed since 2012. These do not appear to demonstrate significant FDG uptake. No adrenal gland masses. Small fat-containing ventral hernias. MUSCULOSKELETAL: There is no FDG-avid or destructive bone lesion. IMPRESSION: Multiple scattered irregular pulmonary nodules have slightly increased in size and number compared to the 2012 examination. The dominant nodules demonstrate abnormal FDG uptake. In addition, these dominant nodules demonstrate above average density. Therefore, these findings favor chronic inflammatory/infectious process with the possibility of inhalation diseases such as a pneumoconiosis given the slightly dense nodules. Slow growing neoplasm/metastatic disease is considered less likely but not entirely excluded. Consider tissue sampling of the dominant nodules for further evaluation. Electronically signed by: Ralf Nicole M.D. 01/22/2018 1:39 PM Dictated Date/Time: 01/22/2018 11:17 AM
== END | disposition home or self-care (01) ==
LOC: C.PET 08:42
PROVIDERS: ATTEND Physician Assistant
DX: R91.1 Solitary pulmonary nodule (principal)

== ENCOUNTER → 2018-01-30 | Outpatient (CLI) | payer OTHER, BC ==
--- NOTE | 2018-01-31 17:32 | PULMONARY FUNCTION TEST ---
SPIROMETRY: Within normal limits. BRONCHODILATOR RESPONSE: No significant response. DIFFUSION CAPACITY: Within normal limits. INTERPRETATION: Normal pulmonary function studies. MTDD
== END | disposition home or self-care (01) ==
LOC: C.RC 10:23
PROVIDERS: ATTEND Physician Assistant
DX: J43.9 Emphysema, unspecified (principal); R91.8 Other nonspecific abnormal finding of lung field

== ENCOUNTER 2019-04-21 07:06 | Inpatient (IN) ==
--- NOTE | 2019-04-20 13:01 | Anesthesiology Consultation ---
Date of Service April 20, 2019 Assessment & Plan (1) Encounter for pre-operative examination: - No previous anesthesia records that involve intubation. - Patient developed a thrombus of his dialysis fistula and needs a thrombectomy to resume dialysis. - Will need EKG AM day of surgery. Chart Review Chart Review: Acceptable Risk for Surgery and Patient NOT seen in Pre Admission Testing Consults Requested none History Surgery Operation Date: 04/21/19 13:30 Proposed Procedures p Thrombectomy Left Upper Arm Arteriovenous Fistula - Charly Hanna MD Height/Weight Height: 5 ft 9 in Weight: 96.615 kg Allergies Allergy/AdvReac Type Severity Reaction Status Date / Time clarithromycin AdvReac Intermediate confusion Verified 04/20/19 11:47 fish oil AdvReac Intermediate hx of Verified 04/20/19 11:47 hemorrage in past Sulfa (Sulfonamide AdvReac Intermediate SEVERE Verified 04/20/19 11:47 Antibiotics) AGITATION/DELIRIUM Medications Home Medications Medication Instructions Recorded Confirmed Last Taken calcium acetate 667 mg capsule 1,334 mg PO UD cap 03/02/19 04/20/19 04/17/19 folic acid 1 mg tablet 1 mg PO QAM #90 tab 03/02/19 04/20/19 04/17/19 08:00 metoprolol tartrate 25 mg tablet 50 mg PO QAM tab 03/02/19 04/20/19 04/17/19 pravastatin 40 mg tablet 40 mg PO DAILY #90 tab 03/02/19 04/20/19 Unknown vit B complx, C-iron 8 mg-folic 1 tab PO DAILY tab 03/05/19 04/20/19 Unknown acid 800 mcg-D3 1,000 unit-zinc tablet aspirin 81 mg PO 3XWK 04/17/19 04/20/19 Unknown docusate sodium 50 mg PO BID 04/17/19 04/20/19 04/17/19 insulin asp prt-insulin aspart 72 unit SUBCUT QAM 04/17/19 04/20/19 04/17/19 [Novolog Mix 70-30 U-100 Insuln] insulin asp prt-insulin aspart 74 unit SUBCUT PM 04/17/19 04/20/19 04/16/19 18:00 [Novolog Mix 70-30 U-100 Insuln] metoprolol tartrate 25 mg PO PM 04/17/19 04/20/19 04/16/19 amlodipine 5 mg PO QAM 04/20/19 04/20/19 Unknown Past Medical History Medical History Transient ischemic attack (TIA) 2 YEARS AGO (NO CURRENT DEFECITS) Thrombocytopenia Pulmonary nodules BEING MONITORED Prostate cancer SURGERY AND RADIATION Nontoxic multinodular goiter Non-occlusive coronary artery disease GAVE (gastric antral vascular ectasia) Dyslipidemia Diabetes mellitus type 2, uncontrolled Chronic upper GI bleeding "CAUSED BY RADIATION" Anemia 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 LOJA History of cataract surgery RT/LEFT History of colonoscopy History of esophagogastroduodenoscopy (EGD) "PAST CAUTERIZATION FOR BLEEDS IN THE PAST" History of tooth extraction History of arthroscopy (Acute) LEFT KNEE History of bowel resection (Acute) POLYP ATTEMPTED TO BE REMOVED "SNIPPED THE BOWEL" S/P arteriovenous (AV) fistula creation (Acute) LEFT Social History Smoking Status: Never smoker Do You Dip or Chew Tobacco: No Hx Alcohol Use: No Hx Substance Use: No substance use type: does not use Testing Laboratory Results Laboratory Tests 03/31/19 04/17/19 04/20/19 14:48 14:12 11:16 WBC 5.15 Hgb 9.2 L Hct 29.0 L Plt Count 105 L Sodium 140 Potassium 4.6 Chloride 105 Carbon Dioxide 20 L BUN 126 H Creatinine 11.40 H* Glucose 124 H Hemoglobin A1c 5.7 H Patient has not been dialyzed since 04/14/19. Echocardiogram Date: 11/23/17 EF: 60-65% Left ventricular systolic function is normal. No regional wall motion abnormalities noted. There is mild concentric left ventricular hypertrophy. Diastolic dysfunction, Grade II (pseudonormalization pattern). No significant valvular pathology. Other Testing US hemodialysis access 04/17/19 CLINICAL HISTORY: Evaluate left upper extremity fistula. Unable to access fistula. FINDINGS: The left upper extremity AV fistula is largely thrombosed. There is extensive thrombus within the AV fistula. A small amount of flow is identified within the distal aspect of the fistula. No adjacent hematoma is identified. IMPRESSION: Largely thrombosed left upper extremity AV fistula. Extensive thrombus within the AV fistula with only a small amount of flow within the distal aspect of the fistula. CT Chest 08/11/18 FINDINGS: Multinodular goiter with multiple thyroid calcifications redemonstrated. No adenopathy by CT size criteria. Heart is upper limits of normal in size. No pericardial effusion. Coronary arterial calcifications are noted. There is moderate calcification of the thoracic aorta without aneurysm identified. The unopacified pulmonary arterial tree is unremarkable. Moderate paraseptal and centrilobular emphysema redemonstrated. There are multiple irregular scattered randomly distributed pulmonary nodules redemonstrated. Spiculated 11 x 9 mm solid nodule of the posterior segment right upper lobe on image 81 series 4 previously measured 9 x 11 mm on study from 01/22/2018. Pleural-based nodule of the posterior basal segment right lower lobe measuring 1.7 cm in greatest dimension on image 218 series 4 is unchanged. Pleural-based nodule of the basal left lower lobe, 1.2 x 1.1 cm on image 219 series 4 is unchanged. 2.6 cm pleural-based nodule of the left lower lobe on image 244 previously measured 1.9 cm in length. Irregular nodules about the basal left lower lobe on image 231 series 4 measuring up to 11 mm are again noted. The nodules about the right lung measuring up to 7-8 mm redemonstrated which have not significant change from comparison. 5 mm solid nodule of the lingula on image 1:30 series 4 redemonstrated. Increased density involving the majority of these nodules again seen. Scattered areas of mucous plugging. Cirrhotic morphology of the liver with ill-defined hypodense lesions of the right hepatic lobe redemonstrated. No acute process of the imaged upper abdomen. Soft tissues are within normal limits. The bones appear to be intact. No suspicious lytic or blastic bony lesions. IMPRESSION: 1. Redemonstration of multiple randomly distributed irregular pulmonary nodules, largest of which measures 2.6 cm within the left lower lobe. These nodules appear stable to slightly increased in size from comparison study 01/22/2018. Infectious or inflammatory etiology versus slowly growing metastatic disease remains the primary differential considerations. Continued follow-up is recommended. 2. No adenopathy. 3. Emphysema. 4. Cirrhotic morphology of the liver. 5. Multinodular goiter. 6. Additional findings as above.
[~2019-04-21 07:06] MED LIST changes: -ASPI81TA28 PO; -CALC667C PO; +CEFAZOLIN 2000MG 2,000 MG/15 ML SYR IV SCH; -DEXT5LIQ23 PO; -DOCU-94 PO; -FLV1 PO; -INSUINJ13 SC; +LIDOCAINE HCL 2% 2 ML VIAL/AMP(20MG/ML) INFIL ONE; -METO25TA56 PO; +MIDAZOLAM HCL 1 MG/ML 2ML VIAL ONE; -MULT-648 PO; -NRV/5 PO; -NVLGI7030 SC; -PANT40TA PO; -PRAV40TA2 PO; +PROPOFOL IV EMULSION 10 MG/ML 20 ML VIAL IV ONE; +SODIUM CHLORIDE 0.9% 1000ML IV SCH; -SUCR1TAB29 PO; +fentaNYL citrate 100 MCG/2 ML VIAL ONE
--- NOTE | 2019-04-21 07:46 | Operative Report ---
Post Operative Report Pre & Post Diagnosis Operation Date: 04/21/19 09:20 <No data on this case meets the specified criteria> Procedure Operation Date: 04/21/19 09:20 <No data on this case meets the specified criteria> Surgeon Ferdinand Christina MD I attest to the content of the Intraoperative Record and any orders documented therein. Any exceptions are noted below.
--- NOTE | 2019-04-21 08:25 | History & Physical Report ---
Date of Service April 21, 2019 Assessment & Plan (1) Arteriovenous fistula thrombosis: Patient admitted for a thrombectomy of his left upper arm fistula with fistulogram and possible intervention. If the fistula can not be saved then a permath will be placed. I have discussed the risks options and benefits of the procedure with the patient. The patient understands the risks options and benefits and agrees to the procedure. History of Present Illness Chief Complaint: Thrombosed left upper arm fistula Primary Care Provider: Noel Raymundo MD this is an 84 yo male with a left upper arm fistula that has had multiple revisions. He clotted last week. He claims that is was running well prior. He denies shortness of breath. Allergies Allergy/AdvReac Type Severity Reaction Status Date / Time clarithromycin AdvReac Intermediate confusion Verified 04/21/19 07:49 fish oil AdvReac Intermediate hx of Verified 04/21/19 07:49 hemorrage in past Sulfa (Sulfonamide AdvReac Intermediate SEVERE Verified 04/21/19 07:49 Antibiotics) AGITATION/DELIRIUM Home Medications Home Medications Medication Instructions Recorded Confirmed Type calcium acetate 667 mg capsule 1,334 mg PO UD cap 03/02/19 04/21/19 History folic acid 1 mg tablet 1 mg PO QAM #90 tab 03/02/19 04/21/19 History metoprolol tartrate 25 mg tablet 50 mg PO QAM tab 03/02/19 04/21/19 History pravastatin 40 mg tablet 40 mg PO DAILY #90 tab 03/02/19 04/21/19 History vit B complx, C-iron 8 mg-folic 1 tab PO DAILY tab 03/05/19 04/21/19 History acid 800 mcg-D3 1,000 unit-zinc tablet aspirin 81 mg PO 3XWK 04/17/19 04/21/19 History docusate sodium 50 mg PO BID 04/17/19 04/21/19 History insulin asp prt-insulin aspart 72 unit SUBCUT QAM 04/17/19 04/21/19 History [Novolog Mix 70-30 U-100 Insuln] insulin asp prt-insulin aspart 74 unit SUBCUT PM 04/17/19 04/21/19 History [Novolog Mix 70-30 U-100 Insuln] metoprolol tartrate 25 mg PO PM 04/17/19 04/21/19 History amlodipine 5 mg PO QAM 04/20/19 04/21/19 History Past Med/Surg History Medical History Transient ischemic attack (TIA) 2 YEARS AGO (NO CURRENT DEFECITS) Thrombocytopenia Pulmonary nodules BEING MONITORED Prostate cancer SURGERY AND RADIATION Nontoxic multinodular goiter Non-occlusive coronary artery disease GAVE (gastric antral vascular ectasia) Dyslipidemia Diabetes mellitus type 2, uncontrolled Chronic upper GI bleeding "CAUSED BY RADIATION" Anemia 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 LOJA History of cataract surgery RT/LEFT History of colonoscopy History of esophagogastroduodenoscopy (EGD) "PAST CAUTERIZATION FOR BLEEDS IN THE PAST" History of tooth extraction Family History Father Family history of diabetes mellitus Social History Preferred Language: Vietnamese Communication Ability: Effective Mobility Architect Required: No Beliefs That Will Affect Care: None Current Living Situation: Family Current Living Situation Comment: [facility] Other Information That Helps Us Care for You: No Feels Safe at Home: Yes Safety Concerns: Feels Safe At This Time Smoking Status: Never smoker Do You Dip or Chew Tobacco: No Second Hand Exposure: Yes (PAST EXPOSURE) Tobacco Cessation Education Requested by Patient: No Hx Alcohol Use: No Hx Substance Use: No Review of Systems All systems reviewed & are unremarkable except as noted in HPI & below Physical Exam Constitutional: WD/WN, vitals as above Neck: trachea midline Respiratory: normal respiratory effort, lungs clear to auscultation Cardiovascular: RRR, no murmur, no edema Gastrointestinal (Abdomen): normal bowel sounds, soft, nontender, no hepatosplenomegaly Musculoskeletal: no cyanosis or clubbing, extremities motor strength 5/5 Neurologic: PERRL, EOMI, accommodation nl, no face palsy, no dysarthria Psychiatric: A+Ox3, euthymic affect Results & Data Vital Signs (Past 12 Hours) Vital Signs Temp Pulse Resp BP Pulse Ox 04/21/19 07:53 36.1 C L 68 20 174/78 H 97
[2019-04-21] MEDS ORDERED: SODIUM CHLORIDE 0.9% 1000ML 1,000 ML IV SCH (08:30)
[2019-04-21 08:37] LABS: BUN Creatinine Ratio 11.9 (10-20); Calcium 7.6 mg/dl (8.5-10.1); Creatinine Clr Calc Pharmacy 5.5 ml/min; Est GFR (African American) 4.1; Est GFR (Non-African American) 3.6; Potassium 5.5 mmol/L (3.5-5.1)
[2019-04-21] MEDS ORDERED: PHENYLEPHRINE 100MCG/ML 5ML SYR IV PRN (08:46)
[2019-04-21] MEDS ORDERED: fentaNYL citrate 100 MCG/2 ML VIAL IV PRN (08:46)
[2019-04-21] MEDS ORDERED: ATROPINE SULFATE 0.1 MG/ML 10ML SYR IV PRN (08:46)
[2019-04-21] MEDS ORDERED: ONDANSETRON INJ 2 MG/ML 2 ML VIAL IV PRN (08:46)
[2019-04-21] MEDS ORDERED: ePHEDrine sulfate 50 MG/ML AMP IV PRN (08:46)
[2019-04-21] MEDS ORDERED: PROMETHAZINE HCL 12.5 MG in SODIUM CHLORIDE 0.9% 50 ML IV PRN (08:46)
--- NOTE | 2019-04-21 10:10 | Communication Note ---
Date of Service: April 21, 2019 Patient with high potassium. Will place permcath and dialyze today. Will plan on thrombectomy tomorrow.
[2019-04-21] MEDS ORDERED: MIDAZOLAM HCL 1 MG/ML 2ML VIAL ONE (11:29)
[2019-04-21] MEDS ORDERED: fentaNYL citrate 100 MCG/2 ML VIAL ONE (11:29)
[2019-04-21] MEDS ORDERED: HEPARIN SOD (PORCINE) 5,000 UNITS/ML VIAL ONE (11:30)
[2019-04-21] MEDS ORDERED: LIDOCAINE HCL 1% 20 ML VIAL INJ ONE (11:58)
--- NOTE | 2019-04-21 12:00 | Post Operative Brief Note ---
Immediate Post Op Note v1 Date of Surgery April 21, 2019 Pre & Post Diagnosis Operation Date: 04/21/19 09:20 Pre-Op Diagnosis: Thrombosed Fistula, Hyperkalemia Post-Op Diagnosis: Thrombosed Fistula, Hyperkalemia Procedure Operation Date: 04/21/19 09:20 Actual Procedures p Perm Catheter Insertion, Right Jugular Approach, Ultrasound Localization of Right Jugular Vein, Fluoroscopy for Positioning, Moderate Sedation 1133-(Right) - Charly Hanna MD Surgeon Charly Hanna MD Family Practice Md Cheyanne Christina MD Estimated Blood Loss 5 Findings Consistent with Post-Op Diagnosis Anesthesia Type RN Sedation Complications none Disposition Accompanied Patient To Recovery: No Disposition: Recovery Room
--- NOTE | 2019-04-21 12:00 | Pre Anesthesia Assessment ---
Date of Service April 21, 2019 Pre Sedation Assessment Vital Signs Temp Pulse Pulse Resp BP Pulse Ox 04/21/19 11:53 72 18 134/67 99 04/21/19 11:48 70 20 144/72 H 98 04/21/19 11:43 75 20 154/78 H 99 04/21/19 11:38 72 20 152/71 H 99 04/21/19 11:33 74 20 161/72 H 100 04/21/19 11:30 77 20 162/69 H 100 04/21/19 07:53 36.1 C L 68 20 174/78 H 97 Cardiovascular RRR, no murmur, no edema Respiratory normal respiratory effort, lungs clear to auscultation Pre-Sedation Airway Assessment Smoking Status: Never smoker Hx Sleep Apnea: No Short, Thick Neck: No Thyromental Distance: > or= 3.5 Finger Breadths Oral Cavity: + Dentures Mallampati Class: II ASA: ASA3 NPO Status Date of Last Intake of Fluids: 04/21/19 Time of Last Intake of Fluids: 06:00 Date of Last Intake of Solid Food: 04/20/19 Time of Last Intake of Solid Foods: 18:00 Procedure Planning Contraindications for Sedation: none Current Medications Reviewed: Yes Notes The planned sedation has been discussed with the patient. Informed Consent was obtained. I have identified the patient, determined the appropriateness of sedation and have assessed the patient immediately prior to the procedure. All medicine(s) and interventions are by my order.
--- NOTE | 2019-04-21 12:11 | Post Operative Brief Note ---
Immediate Post Op Note v1 Date of Surgery April 21, 2019 Pre & Post Diagnosis Operation Date: 04/21/19 09:20 Pre-Op Diagnosis: Thrombosed Fistula, Hyperkalemia Post-Op Diagnosis: Thrombosed Fistula, Hyperkalemia Procedure Operation Date: 04/21/19 09:20 Actual Procedures p Perm Catheter Insertion, Right Jugular Approach, Ultrasound Localization of Right Jugular Vein, Fluoroscopy for Positioning, Moderate Sedation 1133-(Right) - Charly Hanna MD Surgeon Charly Hanna MD Chemical Laboratory Technician Cheyanne Christina MD Estimated Blood Loss 5 Anesthesia Type RN Sedation
--- NOTE | 2019-04-21 12:12 | Operative Report ---
Post Operative Report Pre & Post Diagnosis Operation Date: 04/21/19 09:20 Pre-Op Diagnosis: Thrombosed Fistula, Hyperkalemia Post-Op Diagnosis: Thrombosed Fistula, Hyperkalemia Procedure Operation Date: 04/21/19 09:20 Actual Procedures p Perm Catheter Insertion, Right Jugular Approach, Ultrasound Localization of Right Jugular Vein, Fluoroscopy for Positioning, Moderate Sedation 1133- 1217(Right) - Charly Hanna MD Surgeon Dr. Charly Hanna Fast Food Worker Cheyanne Christina MD Estimated Blood Loss 5 Findings Consistent with Post-Op Diagnosis Fluids 150 ml Specimens None Drains None Anesthesia Type RN Sedation Complications none Disposition Accompanied Patient To Recovery: No Disposition: Recovery Room Indications 84-year-old male with a history of end-stage renal disease requiring hemodialysis who previously had decreased flow through his left arm AV fistula who presented for endovascular/possible thrombectomy for his left arm fistula found to be hyperkalemic in the preoperative area requiring hemodialysis prior to revision/thrombectomy. And with his sales marketing it was discussed that a perm catheter should be placed and he should undergo hemodialysis today with plan for revision later this week. I have discussed the risks options and benefits of the procedure with the patient. The patient understands the risks options and benefits and agrees to the procedure. Description of Procedure Patient was taken to the angio suite and placed in the supine position. Preoperative antibiotics were given prior to incision. On the right side of the neck and chest wall were prepped and draped in a sterile manner. The patient was identified and a timeout performed. Local anesthesia was then administered to the appropriate areas of the neck and chest wall. Ultrasound was then used to locate the right internal jugular vein. The vein compressed easily, had no filing defects, and was patent. The vein was then punctured under direct ultrasound imaging. A guidewire was then passed centrally under fluoroscopic imaging. A stab wound was then made in the anterior chest wall and 19cm permcath was passed from the stab wound on the chest wall to the puncture site on the neck. The puncture site was then dilated till the 14Fr peel away sheath was inserted. The permcath was then inserted through the sheath to a central position in the distal superior vena cava. The peel away sheath was then removed. The catheter was then sutured in place using nylon sutures. The puncture was then closed using a 4-0 Vicryl subcuticular suture. Dermabond was used for a dressing on the puncture site. Both ports aspirated and flushed easily and were then packed with heparin. A sterile dressing was applied to the catheter. The patient left the operation room in satisfactory condition and tolerated the procedure well. All needle and sponge counts were correct at the end of the procedure. I, Dr. Hanna was present and scrubbed for the entire procedure. I attest to the content of the Intraoperative Record and any orders documented therein. Any exceptions are noted below.
--- NOTE | 2019-04-21 13:11 | Nephrology Consultation ---
Date of Consultation April 21, 2019 Assessment & Plan (1) End-stage renal disease on hemodialysis: -- Will provide heparin free HD today for correction of hyperkalemia -- Orders entered into EMR and HD RN notified -- Continue home medications & diabetic/HD diet (2) Arteriovenous fistula thrombosis: -- Discussed w/ Dr. Hanna. Thrombectomy tomorrow once potassium is acceptable. History of Present Illness Reason for Consultation: ESRD requiring HD Attending Physician: Charly Hanna MD History of Present Illness Mr. Madden is an 84 year old white male who is seen at the request of Dr. Hanna to provide inpatient HD. Medical records in the EMR were reviewed today and are summarized as follows: Mr. Madden has ESRD due to diabetic nephropathy. He started HD 02/25. He dialyzes TTS at [facility] (4hr 2K 2Ca 140Na 37HCO3 F-180NR EDW 96.5). One week ago his L arm AVF thrombosed. He was scheduled for thrombectomy this morning but pre-op potassium was elevated at 5.5. Mr. Madden underwent R IJ THC insertion and Nephrology consultation has been reque sted to provide inpatient HD. I have spoken w/ Dr. Hanna. He will admit Mr. Madden and plans thrombectomy in am. Mr. Madden currently denies fever, angina, dyspnea or uremic symptoms. PMH: ESRD, AODM, HTN, hypercholesterolemia, ASCVD, prostate CA s/p prostatectomy and radiation therapy, radiation colitis w/ intermittent LGI bleeding, lung nodules monitored by [facility] Pulmonology. Allergies Allergy/AdvReac Type Severity Reaction Status Date / Time clarithromycin AdvReac Intermediate confusion Verified 04/21/19 07:49 fish oil AdvReac Intermediate hx of Verified 04/21/19 07:49 hemorrage in past Sulfa (Sulfonamide AdvReac Intermediate SEVERE Verified 04/21/19 07:49 Antibiotics) AGITATION/DELIRIUM Home Medications Home Medications Medication Instructions Recorded Confirmed Type calcium acetate 667 mg capsule 1,334 mg PO UD cap 03/02/19 04/21/19 History folic acid 1 mg tablet 1 mg PO QAM #90 tab 03/02/19 04/21/19 History metoprolol tartrate 25 mg tablet 50 mg PO QAM tab 03/02/19 04/21/19 History pravastatin 40 mg tablet 40 mg PO DAILY #90 tab 03/02/19 04/21/19 History vit B complx, C-iron 8 mg-folic 1 tab PO DAILY tab 03/05/19 04/21/19 History acid 800 mcg-D3 1,000 unit-zinc tablet aspirin 81 mg PO 3XWK 04/17/19 04/21/19 History docusate sodium 50 mg PO BID 04/17/19 04/21/19 History insulin asp prt-insulin aspart 72 unit SUBCUT QAM 04/17/19 04/21/19 History [Novolog Mix 70-30 U-100 Insuln] insulin asp prt-insulin aspart 74 unit SUBCUT PM 04/17/19 04/21/19 History [Novolog Mix 70-30 U-100 Insuln] metoprolol tartrate 25 mg PO PM 04/17/19 04/21/19 History amlodipine 5 mg PO QAM 04/20/19 04/21/19 History Patient History Medical History Transient ischemic attack (TIA) 2 YEARS AGO (NO CURRENT DEFECITS) Thrombocytopenia Pulmonary nodules BEING MONITORED Prostate cancer SURGERY AND RADIATION Nontoxic multinodular goiter Non-occlusive coronary artery disease GAVE (gastric antral vascular ectasia) Dyslipidemia Diabetes mellitus type 2, uncontrolled Chronic upper GI bleeding "CAUSED BY RADIATION" Anemia 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 LOJA History of cataract surgery RT/LEFT History of colonoscopy History of esophagogastroduodenoscopy (EGD) "PAST CAUTERIZATION FOR BLEEDS IN THE PAST" History of tooth extraction Family History Father Family history of diabetes mellitus Social History Preferred Language: [place] Communication Ability: Effective Medical Record Coder Required: No Beliefs That Will Affect Care: None Current Living Situation: Family Current Living Situation Comment: [facility] WITH PT Other Information That Helps Us Care for You: No Feels Safe at Home: Yes Safety Concerns: Feels Safe At This Time Smoking Status: Never smoker Do You Dip or Chew Tobacco: No Second Hand Exposure: Yes (PAST EXPOSURE) Tobacco Cessation Education Requested by Patient: No Hx Alcohol Use: No Hx Substance Use: No Review of Systems Constitutional: no fever Respiratory: no dyspnea Cardiovascular: no chest pain Gastrointestinal: no abdominal pain Genitourinary: no hematuria Physical Exam Constitutional: well developed and well nourished Eyes: PERRL, conjunctivae normal, anicteric sclerae Neck: trachea midline, no thyromegaly (R IJ THC w/ small amount of oozing from insertion site) Respiratory: normal respiratory effort, lungs clear to auscultation Cardiovascular: Rate/Rhythm: regular rate and regular rhythm Extremities: + AV fistula (L upper arm AVF thrombosed); no edema (pretibial hemosiderin staining from previous lymphedema) Gastrointestinal (Abdomen): normal bowel sounds, soft, nontender, no hepatosplenomegaly Skin: no rashes, warm and dry Neurologic: awake; not confused Results & Data Vital Signs (Past 12 Hours) Vital Signs Temp Pulse Pulse Resp BP Pulse Ox 04/21/19 12:23 36.5 C 70 18 152/90 H 96 04/21/19 12:17 76 18 135/63 98 04/21/19 12:10 70 20 144/68 H 100 04/21/19 12:05 69 18 137/63 100 04/21/19 12:03 70 18 143/63 H 100 04/21/19 11:58 70 20 143/69 H 99 04/21/19 11:53 72 18 134/67 99 04/21/19 11:48 70 20 144/72 H 98 04/21/19 11:43 75 20 154/78 H 99 04/21/19 11:38 72 20 152/71 H 99 04/21/19 11:33 74 20 161/72 H 100 04/21/19 11:30 77 20 162/69 H 100 04/21/19 07:53 36.1 C L 68 20 174/78 H 97 Laboratory Results Laboratory Tests 04/17/19 04/21/19 14:12 07:53 WBC 5.15 Hgb 9.2 L Hct 29.0 L Plt Count 105 L Sodium 140 Potassium 5.5 H D Chloride 107 Carbon Dioxide 19 L BUN 140 H Creatinine 11.50 H* Glucose 163 H Calcium 7.6 L
[2019-04-21] MEDS ORDERED: SODIUM CHLORIDE 0.9% 1000ML 1,000 ML IV PRN (13:23)
[2019-04-21] MEDS ORDERED: EPOETIN ALFA 10,000 UNITS/ML VIAL IV SCH (14:15)
[2019-04-21] MEDS: INSULIN 70% ASPART PROTAMINE/30% ASPART SQ SCH (16:46)
[2019-04-21] MEDS: CALCIUM ACETATE 667 MG CAP PO SCH (20:09)
[2019-04-21] MEDS: METOPROLOL TARTRATE 25 MG TAB PO SCH (21:38)
[2019-04-21] MEDS: DOCUSATE SODIUM SYRUP 100 MG/10 ML UDC PO SCH (21:42)
[2019-04-21] MEDS ORDERED: CALCIUM ACETATE 667 MG CAP PO STA (22:27)
[2019-04-22] MEDS ORDERED: CEFAZOLIN 2000MG 2,000 MG/15 ML SYR IV SCH (06:00)
[2019-04-22] MEDS ORDERED: CEFAZOLIN 1000MG 1,000 MG/7.5 ML SYR IV SCH (06:00)
[2019-04-22 06:52] LABS: Basophils # (auto) 0.01 K/uL (0-0.2); Basophils % (auto) 0.2 %; Eosinophils # (auto) 0.15 K/uL (0-0.5); Eosinophils % (auto) 2.9 %; Hematocrit (blood only) 22.2 % (42-52); Hemoglobin 7.2 g/dL (14.0-18.0); Immature Granulocytes # (auto) 0.01 K/uL (0.00-0.02); Immature Granulocytes % (auto) 0.2 %; Lymphocytes # (auto) 1.25 K/uL (1.2-3.4); Lymphocytes % (auto) 24.3 %; Mean Corpuscular Hgb Conc 32.4 g/dL (32-36); Mean Corpuscular Volume 90.2 fL (80-100); Mean Platelet Volume 9.2 fL (7.4-10.4); Monocytes # (auto) 0.39 K/uL (0.11-0.59); Monocytes % (auto) 7.6 %; Neutrophils # (auto) 3.34 K/uL (1.4-6.5); Neutrophils % (auto) 64.8 %; Platelet Count 105 K/uL (130-400); RDW Coefficient of Variation 16.3 % (11.5-14.5); RDW Standard Deviation 53.9 fL (36.4-46.3); Red Blood Count 2.46 M/uL (4.7-6.1); White Blood Count 5.15 K/uL (4.8-10.8)
[2019-04-22 07:26] LABS: RBC Morphology Unremarkable
[2019-04-22 07:36] LABS: Creatinine Clr Calc Pharmacy 8.8 ml/min; Est GFR (African American) 7.5; Est GFR (Non-African American) 6.4
[2019-04-22 07:37] LABS: Calcium 6.9 mg/dl (8.5-10.1); Potassium 4.2 mmol/L (3.5-5.1)
[2019-04-22] MEDS: CALCIUM ACETATE 667 MG CAP PO SCH ×3 (08:57→18:05)
[2019-04-22] MEDS: NEPHROCAPS PO SCH (09:19)
[2019-04-22] MEDS: FOLIC ACID 1 MG TAB PO SCH (09:19)
[2019-04-22] MEDS: PRAVASTATIN SOD 40 MG TAB PO SCH (09:19)
[2019-04-22] MEDS: DOCUSATE SODIUM SYRUP 100 MG/10 ML UDC PO SCH ×2 (09:19→20:22)
[2019-04-22] MEDS: AMLODIPINE BESYLATE 5 MG TAB PO SCH (09:21)
[2019-04-22] MEDS: METOPROLOL TARTRATE 50 MG TAB PO SCH (09:21)
[2019-04-22] MEDS: INSULIN 70% ASPART PROTAMINE/30% ASPART SQ SCH ×2 (09:43→18:06)
--- NOTE | 2019-04-22 10:50 | Nephrology Progress Note ---
Date of Service April 22, 2019 Assessment & Plan (1) End-stage renal disease on hemodialysis: -- BP, volume status are appropriate -- Electrolytes acceptable -- Medications acceptable for kidney function -- Plan HD tomorrow (2) Arteriovenous fistula thrombosis: -- Thrombectomy planned for today (3) Anemia: -- Acute on chronic -- Repeat with AM labs Subjective No acute events overnight. Isidro feels well today. No complications with HD yesterday. Review of Systems Review of Systems: All systems reviewed & are unremarkable except as noted in HPI & below Physical Exam Constitutional: well developed and well nourished Eyes: PERRL, conjunctivae normal, anicteric sclerae Neck: trachea midline, no thyromegaly (R IJ THC w/ small amount of oozing from insertion site) Respiratory: normal respiratory effort, lungs clear to auscultation Cardiovascular: Rate/Rhythm: regular rate and regular rhythm Extremities: + AV fistula (L upper arm AVF thrombosed); no edema (pretibial hemosiderin staining from previous lymphedema) Gastrointestinal (Abdomen): normal bowel sounds, soft, nontender, no hepatosplenomegaly Skin: no rashes, warm and dry Neurologic: awake; not confused Results & Data Vital Signs (Past 12 Hours) Vital Signs Temp Pulse Pulse Resp BP Pulse Ox 04/22/19 09:15 70 170/69 H 04/22/19 07:02 36.7 C 66 20 156/68 H 96 04/21/19 23:35 36.7 C 79 18 159/68 H 96 Laboratory Results Laboratory Results - last 24 hr 04/21/19 04/21/19 04/21/19 12:26 16:37 21:38 WBC RBC Hgb Hct MCV MCH MCHC RDW Std Deviation RDW Coeff of Casandra Plt Count MPV Immature Gran % (Auto) Neut % (Auto) Lymph % (Auto) [place] % (Auto) Eos % (Auto) Baso % (Auto) Immature Gran # (Auto) Neut # (Auto) Lymph # (Auto) [place] # (Auto) Eos # (Auto) Baso # (Auto) RBC Morphology Sodium Potassium Chloride Carbon Dioxide Anion Gap BUN Creatinine Est Cr Clr Drug Dosing Est GFR ( Amer) Est GFR (Non-Af Amer) BUN/Creatinine Ratio Glucose POC Glucose 153 H 161 H 78 Calcium 04/22/19 04/22/19 04/22/19 06:00 06:16 06:16 WBC 5.15 RBC 2.46 L Hgb 7.2 L Hct 22.2 L MCV 90.2 MCH 29.3 MCHC 32.4 RDW Std Deviation 53.9 H RDW Coeff of Casandra 16.3 H Plt Count 105 L MPV 9.2 Immature Gran % (Auto) 0.2 Neut % (Auto) 64.8 Lymph % (Auto) 24.3 [place] % (Auto) 7.6 Eos % (Auto) 2.9 Baso % (Auto) 0.2 Immature Gran # (Auto) 0.01 Neut # (Auto) 3.34 Lymph # (Auto) 1.25 [place] # (Auto) 0.39 Eos # (Auto) 0.15 Baso # (Auto) 0.01 RBC Morphology Unremarkable Sodium 137 Potassium 4.2 D Chloride 104 Carbon Dioxide 24 Anion Gap 9.0 BUN 64 H D Creatinine 7.05 H* D Est Cr Clr Drug Dosing 8.8 Est GFR ( Amer) 7.5 Est GFR (Non-Af Amer) 6.4 BUN/Creatinine Ratio 9.0 L Glucose 74 POC Glucose 89 Calcium 6.9 L
[2019-04-22 13:18] LABS: Hematocrit (blood only) 25.3 % (42-52); Hemoglobin 8.2 g/dL (14.0-18.0)
--- NOTE | 2019-04-22 14:19 | History & Physical Bridge Note ---
Date of Service April 22, 2019 History & Physical Bridge Note Patient for thrombectomy of his left arm fistula with a fistulogram and possible intervention. I have discussed the risks options and benefits of the procedure with the patient. The patient understands the risks options and benefits and agrees to t he procedure. I have examined the patient, reviewed the History & Physical and in the interval since the performance of the History & Physical I have noted the following changes of clinical significance: no changes noted
--- NOTE | 2019-04-22 14:32 | Anesthesiology Consultation ---
Date of Service April 22, 2019 Assessment & Plan (1) Encounter for pre-operative examination: Chart Review Chart Review: Acceptable Risk for Surgery Consults Requested none ASA ASA4 Proposed Anesthesia Anesthesia Type: MAC Risk / Benefits Reviewed With: PT / POA / Parent / Guardian, Accepts Plan and Informed Consent Obtained History Surgery Operation Date: 04/21/19 09:20 Proposed Procedures p Perm Catheter Placement - Charly Hanna MD Operation Date: 04/22/19 14:10 Proposed Procedures p Thrombectomy Left Upper Arm Arteriiovenous Fistula - Charly Hanna MD Height/Weight Height: 5 ft 9 in Weight: 96.8 kg Allergies Allergy/AdvReac Type Severity Reaction Status Date / Time clarithromycin AdvReac Intermediate confusion Verified 04/21/19 07:49 fish oil AdvReac Intermediate hx of Verified 04/21/19 07:49 hemorrage in past Sulfa (Sulfonamide AdvReac Intermediate SEVERE Verified 04/21/19 07:49 Antibiotics) AGITATION/DELIRIUM Medications Home Medications Medication Instructions Recorded Confirmed Last Taken calcium acetate 667 mg capsule 1,334 mg PO UD cap 03/02/19 04/21/19 04/20/19 20:00 folic acid 1 mg tablet 1 mg PO QAM #90 tab 03/02/19 04/21/19 04/20/19 08:00 metoprolol tartrate 25 mg tablet 50 mg PO QAM tab 03/02/19 04/21/19 04/21/19 05:30 pravastatin 40 mg tablet 40 mg PO DAILY #90 tab 03/02/19 04/21/19 04/20/19 20:00 vit B complx, C-iron 8 mg-folic 1 tab PO DAILY tab 03/05/19 04/21/19 04/20/19 08:00 acid 800 mcg-D3 1,000 unit-zinc tablet aspirin 81 mg PO 3XWK 04/17/19 04/21/19 04/14/19 docusate sodium 50 mg PO BID 04/17/19 04/21/19 04/20/19 20:00 insulin asp prt-insulin aspart 72 unit SUBCUT QAM 04/17/19 04/21/19 04/20/19 0 8:00 [Novolog Mix 70-30 U-100 Insuln] insulin asp prt-insulin aspart 74 unit SUBCUT PM 04/17/19 04/21/1904/20/19 18:00 [Novolog Mix 70-30 U-100 Insuln] metoprolol tartrate 25 mg PO PM 04/17/19 04/21/19 04/20/19 20:00 amlodipine 5 mg PO QAM 04/20/19 04/21/19 04/21/19 05:30 Active Medications Generic Name Dose Route Start Last Admin Trade Name Alivia PRN Reason Stop Dose Admin Amlodipine Besylate 5 mg 04/22/19 09:00 04/22/19 09:21 Norvasc PO 05/22/19 08:59 5 mg QAM KASSANDRA Administration Calcium Acetate 1,334 mg 04/21/19 17:00 04/22/19 12:27 Phoslo PO 05/21/19 16:59 Not Given TIDM KASSANDRA Docusate Sodium 50 mg 04/21/19 21:00 04/22/19 09:19 Colace PO 05/21/19 20:59 Not Given BID KASSANDRA Folic Acid 1 mg 04/22/19 09:00 04/22/19 09:19 Folvite PO 05/22/19 08:59 Not Given QAM KASSANDRA Insulin Aspart 74 units 04/21/19 16:30 04/21/19 16:46 Novolog Mix 70/30 SQ 05/21/19 16:29 74 units QDD KASSANDRA Administration Insulin Aspart 72 units 04/22/19 07:30 04/22/19 09:43 Novolog Mix 70/30 SQ 05/22/19 07:29 Not Given QDB KASSANDRA Metoprolol Tartrate 25 mg 04/21/19 21:00 04/21/19 21:38 Lopressor PO 05/21/19 20:59 25 mg PM KASSANDRA Administration Metoprolol Tartrate 50 mg 04/22/19 09:00 04/22/19 09:21 Lopressor PO 05/22/19 08:59 50 mg QAM KASSANDRA Administration Pravastatin Sodium 40 mg 04/22/19 09:00 04/22/19 09:19 Pravachol PO 05/22/19 08:59 Not Given DAILY KASSANDRA Vitamin B Complex/Folic Acid 1 cap 04/22/19 09:00 04/22/19 09:19 Nephrocaps PO 05/22/19 08:59 Not Given DAILY KASSANDRA NPO Date Last Intake of Fluids: 04/21/19 Time Last Intake of Fluids: 18:00 Last Intake of Fluids Comment: sip of water with AM meds Date Last Intake of Solids: 04/21/19 Time Last Intake of Solids: 18:00 Past Medical History Medical History Transient ischemic attack (TIA) 2 YEARS AGO (NO CURRENT DEFECITS) Thrombocytopenia Pulmonary nodules BEING MONITORED Prostate cancer SURGERY AND RADIATION Nontoxic multinodular goiter Non-occlusive coronary artery disease GAVE (gastric antral vascular ectasia) Dyslipidemia Diabetes mellitus type 2, uncontrolled Chronic upper GI bleeding "CAUSED BY RADIATION" Anemia 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 Coronary artery disease End-stage renal disease on hemodialysis DIALYSIS SATURDAY/SATURDAY/SATURDAY AT [facility] Hypertension Amputation of left little finger (Acute) Diabetic neuropathy Gout Hearing deficit LEFT Osteoarthritis Exercise / Class Metabolic Activity III < 4 Walking/Shop/Light housework Past Family History Family History Father Family history of diabetes mellitus Past Surgical History Surgical History H/O prostatectomy History of arthroscopy (Acute) LEFT KNEE History of bowel resection (Acute) POLYP ATTEMPTED TO BE REMOVED "SNIPPED THE BOWEL" S/P arteriovenous (AV) fistula creation (Acute) LEFT History of cardiac cath X 3 (NO STENTS) FOLLOWED BY DR. LOJA History of cataract surgery RT/LEFT History of colonoscopy History of esophagogastroduodenoscopy (EGD) "PAST CAUTERIZATION FOR BLEEDS IN THE PAST" History of tooth extraction Past Anesthesia History No Hx of Anesthesia Complications and No Family Hx of Anesthesia Complications History of PONV No Hx of PONV and No Hx of Motion Sickness Social History Smoking Status: Never smoker Do You Dip or Chew Tobacco: No Hx Alcohol Use: No Hx Substance Use: No substance use type: does not use Physical Exam Vital Signs Last Vital Signs Temp 97.7 F 04/22/19 14:24 Pulse 65 04/22/19 14:24 Resp 16 04/22/19 14:24 BP 161/75 H 04/22/19 14:24 Pulse Ox 98 04/22/19 14:24 ENMT Mouth: + edentulous Thyromental Distance: > or= 3.5 Finger Breadths Mallampati Class: II Neck normal visual inspection Respiratory normal respiratory effort Auscultation: + diminished lung sounds Cardiovascular Rate/Rhythm: regular rate and regular rhythm Testing Laboratory Results 04/22/19 13:07 04/22/19 06:16 04/22/19 04/22/19 12:54 06:00 POC Glucose 93 89 Electrocardiogram Date: 04/21/19 Sinus rhythm with 1st degree A-V block with Premature supraventricular complexes, rate 67 bpm Otherwise normal ECG When compared with ECG of 23-NOV-2017 14:22, No significant change was found Confirmed by Phani Rodriguez ([id number]) on 04/21/2019 11:28:53 PM Echocardiogram Date: 11/23/17 EF: 60-65% Left ventricular systolic function is normal. No regional wall motion abnormalities noted. There is mild concentric left ventricular hypertrophy. Diastolic dysfunction, Grade II (pseudonormalization pattern). No significant valvular pathology. Other Testing US hemodialysis access 04/17/19 CLINICAL HISTORY: Evaluate left upper extremity fistula. Unable to access fistula. FINDINGS: The left upper extremity AV fistula is largely thrombosed. There is extensive thrombus within the AV fistula. A small amount of flow is identified within the distal aspect of the fistula. No adjacent hematoma is identified. IMPRESSION: Largely thrombosed left upper extremity AV fistula. Extensive throm bus within the AV fistula with only a small amount of flow within the distal aspect of the fistula. CT Chest 08/11/18 FINDINGS: Multinodular goiter with multiple thyroid calcifications redemonstrated. No adenopathy by CT size criteria. Heart is upper limits of normal in size. No pericardial effusion. Coronary arterial calcifications are noted. There is moderate calcification of the thoracic aorta without aneurysm identified. The unopacified pulmonary arterial tree is unremarkable. Moderate paraseptal and centrilobular emphysema redemonstrated. There are multiple irregular scattered randomly distributed pulmonary nodules redemonstrated. Spiculated 11 x 9 mm solid nodule of the posterior segment right upper lobe on image 81 series 4 previously measured 9 x 11 mm on study from 01/22/2018. Pleural-based nodule of the posterior basal segment right lower lobe measuring 1.7 cm in greatest dimension on image 218 series 4 is unchanged. Pleural-based nodule of the basal left lower lobe, 1.2 x 1.1 cm on image 219 series 4 is unchanged. 2.6 cm pleural-based nodule of the left lower lobe on image 244 previously measured 1.9 cm in length. Irregular nodules about the basal left lower lobe on image 231 series 4 measuring up to 11 mm are again noted. The nodules about the right lung measuring up to 7-8 mm redemonstrated which have not significant change from comparison. 5 mm solid nodule of the lingula on image 1:30 series 4 redemonstrated. Increased density involving the majority of these nodules again seen. Scattered areas of mucous plugging. Cirrhotic morphology of the liver with ill-defined hypodense lesions of the right hepatic lobe redemonstrated. No acute process of the imaged upper abdomen. Soft tissues are within normal limits. The bones appear to be intact. No suspicious lytic or blastic bony lesions. IMPRESSION: 1. Redemonstration of multiple randomly distributed irregular pulmonary nodules, largest of which measures 2.6 cm within the left lower lobe. These nodules appear stable to slightly increased in size from comparison study 01/22/2018. Infectious or inflammatory etiology versus slowly growing metastatic disease remains the primary differential considerations. Continued follow-up is recommended. 2. No adenopathy. 3. Emphysema. 4. Cirrhotic morphology of the liver. 5. Multinodular goiter. 6. Additional findings as above.
[2019-04-22] MEDS ORDERED: ONDANSETRON INJ 2 MG/ML 2 ML VIAL IV PRN (14:41)
[2019-04-22] MEDS ORDERED: ATROPINE SULFATE 0.1 MG/ML 10ML SYR IV PRN (14:41)
[2019-04-22] MEDS ORDERED: fentaNYL citrate 100 MCG/2 ML VIAL IV PRN (14:41)
[2019-04-22] MEDS ORDERED: ePHEDrine sulfate 50 MG/ML AMP IV PRN (14:41)
[2019-04-22] MEDS ORDERED: LIDOCAINE HCL 1% 20 ML VIAL ONE (14:48)
[2019-04-22] MEDS ORDERED: GELATIN SPONGE 12-7MM ONE (14:48)
[2019-04-22] MEDS ORDERED: HEPARIN (PORCINE) 1000 UNIT/ML 10 ML (CATH LAB USE ONLY) ONE (14:48)
[2019-04-22] MEDS ORDERED: BUPIVACAINE/EPINEPHRINE 0.5% MPF 1:200,000 30 ML VIAL ONE (14:49)
[2019-04-22] MEDS ORDERED: IODIXANOL (VISIPAQUE) 270 MG/ML 50ML ONE (14:49)
[2019-04-22] MEDS ORDERED: THROMBIN FOR SOLN 20000 UNIT KIT ONE (14:49)
[2019-04-22] MEDS ORDERED: MIDAZOLAM HCL 1 MG/ML 2ML VIAL ONE (14:58)
[2019-04-22] MEDS ORDERED: PROPOFOL IV EMULSION 10 MG/ML 20 ML VIAL IV ONE ×2 (14:58→16:14)
[2019-04-22] MEDS ORDERED: fentaNYL citrate 100 MCG/2 ML VIAL ONE (14:58)
[2019-04-22] MEDS ORDERED: LIDOCAINE HCL 2% 2 ML VIAL/AMP(20MG/ML) INFIL ONE (14:58)
[2019-04-22] MEDS ORDERED: HEPARIN SOD (PORCINE) 1000 UNIT/ML 10 ML VIAL ONE (16:15)
[2019-04-22] MEDS ORDERED: ePHEDrine sulfate 50 MG/ML SYR ONE (16:15)
--- NOTE | 2019-04-22 16:29 | Post Operative Brief Note ---
Immediate Post Op Note v1 Date of Surgery April 22, 2019 Pre & Post Diagnosis Operation Date: 04/21/19 09:20 Pre-Op Diagnosis: Thrombosed Fistula, Hyperkalemia Post-Op Diagnosis: Thrombosed Fistula, Hyperkalemia Operation Date: 04/22/19 14:10 Pre-Op Diagnosis: Arteriovenous fistula thrombosis Post-Op Diagnosis: Arteriovenous fistula thrombosis Procedure Operation Date: 04/21/19 09:20 Actual Procedures p Perm Catheter Insertion, Right Jugular Approach, Ultrasound Localization of Right Jugular Vein, Fluoroscopy for Positioning, Moderate Sedation 1133- 1217(Right) - Charly Hanna MD Operation Date: 04/22/19 14:10 Actual Procedures p Attemped Thrombectomy Left Upper Arm Arteriiovenous Fistula(Left) - Charly Hanna MD Surgeon Charly Hanna MD Certified Green Building Engineer Cheyanne Christina MD Estimated Blood Loss 3 Findings Consistent with Post-Op Diagnosis Anesthesia Type MAC Complications none Disposition Accompanied Patient To Recovery: No Disposition: Recovery Room
--- NOTE | 2019-04-22 16:34 | Communication Note ---
Date of Service: April 22, 2019 Fistula vein in upper arm very sclerotic with very small lumen. Also has two venous aneurysms of the fistula. Will need a new fistula Permcath in place for now Will get venous mapping tomorrow and then d/c after dialysis Will place new fistula as outpatient
--- NOTE | 2019-04-22 17:05 | Operative Report ---
Post Operative Report Pre & Post Diagnosis Operation Date: 04/21/19 09:20 Pre-Op Diagnosis: Thrombosed Fistula, Hyperkalemia Post-Op Diagnosis: Thrombosed Fistula, Hyperkalemia Operation Date: 04/22/19 14:10 Pre-Op Diagnosis: Arteriovenous fistula thrombosis Post-Op Diagnosis: Arteriovenous fistula thrombosis Procedure Operation Date: 04/21/19 09:20 Actual Procedures p Perm Catheter Insertion, Right Jugular Approach, Ultrasound Localization of Right Jugular Vein, Fluoroscopy for Positioning, Moderate Sedation 1133- 1217(Right) - Charly Hanna MD Operation Date: 04/22/19 14:10 Actual Procedures p Attemped Thrombectomy Left Upper Arm Arteriiovenous Fistula(Left) - Charly Hanna MD Surgeon Dr. Charly Hanna Laser Beam Machine Operator Cheyanne Christina MD Estimated Blood Loss 3 Findings Consistent with Post-Op Diagnosis Sclerotic pain proximally to the subclavian with a significant distally towards the anastomosis Fluids 100ml Specimens none Drains none Anesthesia Type MAC Complications none Disposition Accompanied Patient To Recovery: No Disposition: Recovery Room Indications 84-year-old male in end-stage renal dialysis dependent who was unable to use his left arm fistula secondary to thrombosis. He has previously had several previous thrombectomies and local revision of his fistula. He required placement of a PermCath earlier this week need for dialysis and inability to tolerate surgical exploration with significant hyperkalemia. I have discussed the risks options and benefits of the procedure with the patient. The patient understands the risks options and benefits and agrees to the procedure. Description of Procedure The patient was transported to the hybrid operating room suite and placed in the supine position with his left arm extended. A surgical timeout procedure was performed correctly identifying the patient by his name date of and medical record number. The correct procedure as well as the appropriate laterality was confirmed and all staff were in agreement. The patient received preoperative antibiotics prior to any skin incision. His left arm was prepped and draped in a sterile fashion. 7 mL of 1% lidocaine and half percent bupivacaine was injected approximately two thirds of his left forearm. Using a 15 blade a 4 cm transverse incision was made and a combination of sharp and blunt dissection was used to identify the dilated cephalic vein. To control the vein was achieved proximally and distally and a vessel loop was passed to achieve proximal and distal control. A venotomy made using an 11 blade. There was no backbleeding or forward bleeding and a significant clot burden was visualized in the lumen of the vein. Threre thousand units of heparin were administered by anesthesia at this time. A 5 [place] balloon was attempted to be passed proximally vein but made a significant amount of resistance and noncompliance. 4 [place] T[place] balloon was then passed. Significantly sclerotic and a minimal amount of clot was removed after several passes. Backbleeding was achieved but very tenuous in nature. Control was then achieved approximately and the 4 [place] T[place] balloon was passed distally towards the anastomosis. The pain was significantly sclerotic and despite multiple attempts there was minimal thrombus removed. No spontaneous bleeding was achieved despite the aforementioned attempts. Given the complex previous history and multiple revisions on his fistula as well as the permacatheter access placed earlier this week it was decided that he would benefit from creation of a new fistula on the contralateral arm. The vein was then ligated with a 2-0 silk. The incision closed with a 3-0 interrupted Vicryl deep layer and a 4-0 Vicryl skin closure. Dermabond was used over the skin site. The patient tolerated the procedure well and he was transported to PACU in stable condition. Dr. Hanna was present and scrubbed for the entirety of the case. I attest to the content of the Intraoperative Record and any orders documented therein. Any exceptions are noted below.
--- NOTE | 2019-04-22 17:17 | Anesthesiology Progress Note ---
Date of Service April 22, 2019 Anesthesia Post Procedure Vital Signs Vital Signs: Temp Pulse Pulse Pulse Pulse Resp BP 04/22/19 17:10 62 20 04/22/19 17:00 62 15 04/22/19 16:53 36.4 C L 65 20 04/22/19 14:24 36.5 C 65 16 04/22/19 09:15 70 04/22/19 07:02 36.7 C 66 20 04/21/19 23:35 36.7 C 79 18 04/21/19 21:40 37.1 C 71 04/21/19 21:36 70 04/21/19 21:00 72 159/70 H 04/21/19 20:40 70 131/70 04/21/19 20:20 72 141/75 H 04/21/19 20:00 69 148/71 H 04/21/19 19:40 69 133/69 04/21/19 19:20 71 143/75 H 04/21/19 19:00 67 143/75 H 04/21/19 18:40 67 135/67 04/21/19 18:20 67 138/66 04/21/19 18:00 66 135/69 04/21/19 17:40 67 146/68 H 04/21/19 17:20 70 136/69 BP Pulse Ox 04/22/19 17:10 137/66 98 04/22/19 17:00 142/66 H 100 04/22/19 16:53 134/61 100 04/22/19 14:24 161/75 H 98 04/22/19 09:15 170/69 H 04/22/19 07:02 156/68 H 96 04/21/19 23:35 159/68 H 96 04/21/19 21:40 159/77 H 04/21/19 21:36 159/83 H 04/21/19 21:00 04/21/19 20:40 04/21/19 20:20 04/21/19 20:00 04/21/19 19:40 04/21/19 19:20 04/21/19 19:00 04/21/19 18:40 04/21/19 18:20 04/21/19 18:00 04/21/19 17:40 04/21/19 17:20 Pain Intensity Generalized: Pain Intensity: 0 Transfer of Care Handoff Completed per policy Notes Mental Status: alert / awake / arousable Patient Amnestic to Procedure: Yes Nausea / Vomiting: adequately controlled Pain: adequately controlled Airway Patency, RR, SpO2: stable & adequate BP & HR: stable & adequate Hydration State: stable & adequate Anesthetic Complications: no major complications apparent
[2019-04-22] MEDS: METOPROLOL TARTRATE 25 MG TAB PO SCH (20:23)
--- NOTE | 2019-04-22 22:27 | Ultrasound Report ---
US venous mapping UE CLINICAL HISTORY: 84 years-old Male presenting with end stage renal disease, failed access. TECHNIQUE: Real-time grayscale and color and spectral Doppler ultrasound imaging of the veins of the bilateral upper extremities was performed. Compression and augmentation were also utilized. COMPARISON: None. FINDINGS: RIGHT: Internal jugular vein: Not interrogated. Subclavian vein: Not interrogated. Axillary vein: Not interrogated. Brachial vein: Not interrogated. Basilic vein (superficial): Patent. Basilic vein diameter measures 8 mm in the proximal upper arm 15 mm deep to the skin surface, 5 mm in the mid upper arm 14 mm in skin surface, 3 mm in the distal uppe r arm 10 mm and the skin surface, 2 mm at the antecubital fossa and 7 mm from the skin surface, 4 mm in the proximal forearm 3 mm from skin surface, 2 mm in the mid forearm 2 mm and the skin surface, 3 mm in the distal forearm 4 mm in skin surface, and 1 mm at the wrist 3 mm deep to the skin surface. Cephalic vein (superficial): Patent. Cephalic vein diameter measures 4 mm in the proximal upper arm 1 4 mm deep to the skin surface, 3 mm in the mid upper arm 8 mm from the skin surface, 2 mm in the dist al upper arm 4 mm and the skin surface, 3 mm at the antecubital fossa 7 mm from the skin surface, 2 m m in the proximal forearm 14 mm from the skin surface, 2 mm in the mid forearm 20 mm and the skin micaela face, not visualized at the wrist. Radial vein: Not interrogated. Ulnar vein: Not interrogated. LEFT: Internal jugular vein: Not interrogated. Subclavian vein: Not interrogated. Axillary vein: Not interrogated. Brachial vein: Not interrogated. Basilic vein (superficial): Patent. Basilic vein diameter measures 7 mm in the proximal upper arm 27 mm deep to the skin surface, 3 mm in the mid upper arm 16 mm deep to the skin surface, 3 mm in the di stal upper arm 11 mm deep to the skin surface, 3 mm at the antecubital fossa 8 mm deep to the skin braun rface, 1 mm at the proximal forearm 5 mm deep to the skin surface, and not traceable beyond this leve l. Cephalic vein (superficial): Patent. Cephalic vein diameter measures 9 mm at the proximal upper arm t rauma millimeters deep to the skin surface, 7 mm proximal to the arterial venous fistula 8 mm deep to the skin surface, 3 mm in the proximal forearm 5 mm deep to the skin surface, 3 mm in the mid forear m 5 mm deep to the skin surface, 3 mm in the distal forearm 3 mm deep to the skin surface, 3 mm at th e wrist 2 mm deep to the skin surface. Radial vein: Not interrogated. Ulnar vein: Not interrogated. Other: None. IMPRESSION: Venous mapping of the superficial veins of the upper extremities performed as detailed above. Superfi cial veins are patent. Electronically signed by: Noel Urbina M.D. 04/22/2019 10:24 PM
[2019-04-22] MEDS ORDERED: GLUCOSE 40% GEL 15 GM TUBE PO PRN (22:30)
[2019-04-22] MEDS ORDERED: CARBOHYDRATES FOR HYPOGLYCEMIA PO PRN (22:30)
[2019-04-22] MEDS ORDERED: GLUCAGON FOR INJ 1 MG VIAL SQ PRN (22:30)
[2019-04-22] MEDS ORDERED: DEXTROSE 50% 50 ML SYRINGE IV PRN (22:30)
[2019-04-22] MEDS ORDERED: GLUCOSE 10 TABS/TUBE PO PRN (22:30)
[2019-04-23] MEDS ORDERED: SODIUM CHLORIDE 0.9% 1000ML 1,000 ML IV PRN (07:00)
--- NOTE | 2019-04-23 08:26 | Anesthesiology Progress Note ---
Date of Service April 23, 2019 Anesthesia Post Procedure Vital Signs Vital Signs: Temp Pulse Pulse Pulse Resp BP Pulse Ox 04/23/19 07:28 36.6 C 67 18 175/67 H 98 04/23/19 03:51 36.4 C L 64 17 158/65 H 98 04/23/19 00:30 36.5 C 62 18 159/67 H 96 04/22/19 20:18 36.6 C 66 16 155/64 H 97 04/22/19 19:42 36.5 C 69 16 159/67 H 97 04/22/19 18:01 36.6 C 73 20 168/75 H 94 04/22/19 17:30 36.5 C 66 16 164/76 H 97 04/22/19 17:20 36.6 C 62 18 148/68 H 95 04/22/19 17:10 62 20 137/66 98 04/22/19 17:00 62 15 142/66 H 100 04/22/19 16:53 36.4 C L 65 20 134/61 100 04/22/19 14:24 36.5 C 65 16 161/75 H 98 04/22/19 09:15 70 170/69 H Pain Intensity Generalized: Pain Intensity: 0 Notes Mental Status: alert / awake / arousable and participated in evaluation Nausea / Vomiting: adequately controlled Pain: adequately controlled Airway Patency, RR, SpO2: stable & adequate BP & HR: stable & adequate Hydration State: stable & adequate
[2019-04-23] MEDS ORDERED: ASPIRIN 81 MG ECTAB PO SCH (09:00)
[2019-04-23] MEDS: CALCIUM ACETATE 667 MG CAP PO SCH ×3 (09:03→17:53)
[2019-04-23] MEDS: PRAVASTATIN SOD 40 MG TAB PO SCH (09:03)
[2019-04-23] MEDS: DOCUSATE SODIUM SYRUP 100 MG/10 ML UDC PO SCH (09:04)
[2019-04-23] MEDS: NEPHROCAPS PO SCH (09:04)
[2019-04-23] MEDS: FOLIC ACID 1 MG TAB PO SCH (09:04)
[2019-04-23] MEDS: INSULIN 70% ASPART PROTAMINE/30% ASPART SQ SCH ×2 (09:05→17:53)
--- NOTE | 2019-04-23 10:22 | Nephrology Progress Note ---
Date of Service April 23, 2019 Assessment & Plan (1) End-stage renal disease on hemodialysis: -- HD orders entered into EMR and discussed with HD nurse -- BP acceptable -- Qb at goal -- Medications acceptable for kidney function (2) Arteriovenous fistula thrombosis: -- Unfortunately AVF not salvageable -- Vein mapping completed -- Vascular surgery to create new AVF as outpatient -- TDC functioning appropriately (3) Anemia: -- Epogen 54380 units with HD Subjective No acute events overnight. Isidro feels well today. Tolerating HD well. Review of Systems Review of Systems: All systems reviewed & are unremarkable except as noted in HPI & below Physical Exam Constitutional: well developed and well nourished Eyes: PERRL, conjunctivae normal, anicteric sclerae Neck: trachea midline, no thyromegaly (R IJ THC w/ small amount of oozing from insertion site) Respiratory: normal respiratory effort, lungs clear to auscultation Cardiovascular: Rate/Rhythm: regular rate and regular rhythm Extremities: + AV fistula (L upper arm AVF thrombosed); no edema (pretibial hemosiderin staining from previous lymphedema) Gastrointestinal (Abdomen): normal bowel sounds, soft, nontender, no hepatosplenomegaly Skin: no rashes, warm and dry Neurologic: awake; not confused Results & Data Vital Signs (Past 12 Hours) Vital Signs Temp Pulse Resp BP Pulse Ox 04/23/19 07:28 36.6 C 67 18 175/67 H 98 04/23/19 03:51 36.4 C L 64 17 158/65 H 98 04/23/19 00:30 36.5 C 62 18 159/67 H 96 Laboratory Results Laboratory Results - last 24 hr 04/22/19 04/22/19 04/22/19 12:54 13:07 14:41 Hgb 8.2 L Hct 25.3 L POC Glucose 93 Blood Type A Negative Antibody Screen NEGATIVE 04/22/19 04/22/19 04/22/19 17:41 22:09 22:12 Hgb Hct POC Glucose 91 54 L* 57 L* Blood Type Antibody Screen 04/22/19 04/23/19 22:37 08:23 Hgb Hct POC Glucose 70 73 Blood Type Antibody Screen
[2019-04-23] MEDS ORDERED: EPOETIN ALFA 10,000 UNITS in SYRINGE 0 ML IV SCH (10:30)
[2019-04-23] MEDS ORDERED: EPOETIN ALFA 10,000 UNITS/ML VIAL SQ SCH (11:00)
[2019-04-23 12:04] LABS: Hepatitis B Surface Antibody Non-Immune
[2019-04-23 12:15] LABS: Hepatitis B Surface Antigen Neg (Neg)
[2019-04-23] MEDS: AMLODIPINE BESYLATE 5 MG TAB PO SCH (14:02)
[2019-04-23] MEDS: METOPROLOL TARTRATE 50 MG TAB PO SCH (14:02)
--- NOTE | 2019-04-23 15:27 | Surgery Progress Note ---
Date of Service April 23, 2019 Assessment & Plan (1) Arteriovenous fistula thrombosis: Patient will be d/c'd today. Will see him in the office to plan on a new fistula Subjective no complaints Physical Exam Physical Exam: Incison dry and clean. No redness Results & Data Vital Signs (Past 12 Hours) Vital Signs Temp Pulse Pulse Pulse Resp BP BP 04/23/19 15:13 36.7 C 68 18 158/62 H 04/23/19 14:00 36.5 C 74 15 191/70 H 04/23/19 13:30 36.9 C 71 164/79 H 04/23/19 13:20 66 163/83 H 04/23/19 13:00 69 164/91 H 04/23/19 12:40 68 160/77 H 04/23/19 12:20 65 164/78 H 04/23/19 12:00 68 160/76 H 04/23/19 11:40 65 161/74 H 04/23/19 11:20 63 161/79 H 04/23/19 11:00 63 148/68 H 04/23/19 10:40 63 155/69 H 04/23/19 10:20 63 145/64 H 04/23/19 10:00 67 163/73 H 04/23/19 09:40 67 157/68 H 04/23/19 09:20 36.9 C 70 04/23/19 07:28 36.6 C 67 18 175/67 H 04/23/19 03:51 36.4 C L 64 17 158/65 H Pulse Ox 04/23/19 15:13 98 04/23/19 14:00 92 04/23/19 13:30 04/23/19 13:20 04/23/19 13:00 04/23/19 12:40 04/23/19 12:20 04/23/19 12:00 04/23/19 11:40 04/23/19 11:20 04/23/19 11:00 04/23/19 10:40 04/23/19 10:20 04/23/19 10:00 04/23/19 09:40 04/23/19 09:20 04/23/19 07:28 98 04/23/19 03:51 98
--- NOTE | 2019-04-24 09:02 | Discharge Summary ---
Date of Service April 24, 2019 Admission HPI Per Admitting Provider 84 yo male with hx of ESRD on HD, known to Dr Hanna for HD access and with a left upper arm fistula that has had multiple revisions. His LUE AVF thrombosed last week. He claims that is was running well prior. He denies shortness of breath, MULLEN, fever, chills, chest pain, abd pain, N/V, other complaints. Admission Exam Per Admitting Provider Constitutional: WD/WN, vitals as above Neck: trachea midline Respiratory: normal respiratory effort, lungs clear to auscultation Cardiovascular: RRR, no murmur, no edema Gastrointestinal (Abdomen): normal bowel sounds, soft, nontender, no hepatosplenomegaly Musculoskeletal: no cyanosis or clubbing, extremities motor strength 5/5 Neurologic: PERRL, EOMI, accommodation nl, no face palsy, no dysarthria Psychiatric: A+Ox3, euthymic affect Principal Diagnosis 1. s/p attempted thrombectomy of LUE AVF 2. THrombosed LUE AVF 3. ESRD on HD Discharge Exam Constitutional WD/WN, vitals as above Neck trachea midline Respiratory normal respiratory effort, lungs clear to auscultation Cardiovascular RRR, no murmur, no edema Gastrointestinal (Abdomen) normal bowel sounds, soft, nontender, no hepatosplenomegaly Musculoskeletal no cyanosis or clubbing, extremities motor strength 5/5 Neurologic PERRL, EOMI, accommodation nl, no face palsy, no dysarthria Psychiatric A+Ox3, euthymic affect Discharge Data Allergies Allergy/AdvReac Type Severity Reaction Status Date / Time clarithromycin AdvReac Intermediate confusion Verified 04/21/19 07:49 fish oil AdvReac Intermediate hx of Verified 04/21/19 07:49 hemorrage in past Sulfa (Sulfonamide AdvReac Intermediate SEVERE Verified 04/21/19 07:49 Antibiotics) AGITATION/DELIRIUM Consultations 04/21/19 12:04 Consult Nephrology Routine Procedures Performed Operation Date: 04/21/19 09:20 Actual Procedures p Perm Catheter Insertion, Right Jugular Approach, Ultrasound Localization of Right Jugular Vein, Fluoroscopy for Positioning, Moderate Sedation 1133- 1217(Right) - Charly Hanna MD Operation Date: 04/22/19 14:10 Actual Procedures p Attemped Thrombectomy Left Upper Arm Arteriiovenous Fistula(Left) - Charly Hanna MD Ordered Studies 04/21/19 10:33 EV cvc insrt tunnel wo prt/stamp presser Routine US guide vascular access Routine 04/22/19 12:24 EV angio arteriovenous shunt Routine 04/22/19 17:30 US venous mapping UE BI Routine Hospital Course (1) Arteriovenous fistula thrombosis: Patient underwent permcath insertion d/t hyperkalemia on admission, then attempted open thrombectomy the following day. Unfortunately, the AVF was not able to be opened and pt will require new AVF creation. Can dialyze through permcath in meantime. D/C home. Will see him in the office to plan on a new fistula Total Time Total Time Spent Total Time Spent (In Minutes): 15 minutes Total Time Includes: Examination of the Patient and Discharge Planning Discharge Plan Discharge Items Patient Disposition: Home - Self-Care Reason For Visit: THROMBOSED FISTULA, HYPERKALEMIA Discharge Diagnosis: Thrombosed fistula Discharge Goals: Therapeutic intervention Activity: Resume your previous activity Non-emergency contact: Surgeon Call non-emergency contact if: you have any medication questions, your symptoms worsen, your pain is not controlled, your pain is worsening, your pain is unusual for you, your pain is concerning for you, your temperature is above 101.5, your wound has increased redness, your wound has increased drainage and your wound pain has increased Follow-up/Referrals: Noel Raymundo MD [Primary Care Provider] - Diet: Carb Consistent or DM2, Dialysis Renal and Heart Healthy Addtl Provider Instructions: Call [phone] to schedule a follow up appointment if one not already scheduled. Prescriptions: Continued calcium acetate 667 mg capsule 1,334 mg PO UD RF: 0 folic acid 1 mg tablet 1 mg PO QAM Qty: 90 RF: 0 metoprolol tartrate 25 mg tablet 50 mg PO QAM RF: 0 pravastatin 40 mg tablet 40 mg PO DAILY Qty: 90 RF: 0 ProRenal 8 mg iron-800 mcg-1,000 unit tablet 1 tab PO DAILY RF: 0 amlodipine 5 mg tablet 5 mg PO QAM RF: 0 docusate sodium 50 mg Capsule 50 mg PO BID RF: 0 Novolog Mix 70-30 U-100 Insuln 100 unit/mL (70-30) solution 72 unit subcut QAM RF: 0 Novolog Mix 70-30 U-100 Insuln 100 unit/mL (70-30) solution 74 unit subcut PM RF: 0 metoprolol tartrate 25 mg tablet 25 mg PO PM RF: 0 aspirin 81 mg tablet,delayed release (DR/EC) 81 mg PO 3XWK RF: 0 Stand-Alone Forms: [employer] [facility]/Other Patient Handouts: Surgery Prevent DVT After Discharge Orders: Discharge Order (Routine); Ordered 04/23/19 Ordered By: Charly Hanna Admission Data Admit Date/Time: 04/21/19 12:09 Attending Provider: Charly Hanna Admit Provider: Charly Hanna Primary Care Provider: Noel Raymundo Other Providers: Allen Leach Service: Surgical Services Other Interventions: Discharge Summary Assessment (RN) Last Done: 04/23/19 17:01 DC Date/Time DO NOT enter until pt leaves facility: 04/23/19 18:43
== END 2019-04-23 18:43 | disposition home or self-care (01) | DRG 252 ==
LOC: ASU 07:06 → 3N 12:09

== ENCOUNTER 2019-12-31 16:26 | Inpatient (IN) ==
[2019-12-31] MEDS ORDERED: SODIUM CHLORIDE 0.9% 250 ML IV ONE (16:38)
[2019-12-31 17:19] LABS: Basophils # (auto) 0.01 K/uL (0-0.2); Basophils % (auto) 0.2 %; Eosinophils # (auto) 0.11 K/uL (0-0.5); Eosinophils % (auto) 2.1 %; Hemoglobin 9.5 g/dL (14.0-18.0); Immature Granulocytes # (auto) 0.04 K/uL (0.00-0.02); Immature Granulocytes % (auto) 0.8 %; Lymphocytes # (auto) 1.04 K/uL (1.2-3.4); Lymphocytes % (auto) 20.1 %; Mean Corpuscular Hemoglobin 30.5 pg (25-34); Mean Corpuscular Hgb Conc 31.7 g/dL (32-36); Mean Corpuscular Volume 96.5 fL (80-100); Mean Platelet Volume 9.6 fL (7.4-10.4); Monocytes # (auto) 0.44 K/uL (0.11-0.59); Monocytes % (auto) 8.5 %; Neutrophils # (auto) 3.54 K/uL (1.4-6.5); Neutrophils % (auto) 68.3 %; Platelet Count 109 K/uL (130-400); RDW Standard Deviation 51.8 fL (36.4-46.3); Red Blood Count 3.11 M/uL (4.7-6.1); White Blood Count 5.18 K/uL (4.8-10.8)
[2019-12-31 17:31] LABS: INR 1.1 (0.9-1.1); Partial Thromboplastin Time 27.3 Seconds (21.0-31.0); Prothrombin Time 11.1 Seconds (9.0-12.0)
[2019-12-31 17:35] LABS: Albumin Level 3.2 gm/dl (3.4-5.0); BUN Creatinine Ratio 4.5 (10-20); Calcium 8.7 mg/dl (8.5-10.1); Creatinine Clr Calc Pharmacy 19.6 ml/min; Est GFR (African American) 20.6; Est GFR (Non-African American) 17.7; Magnesium 2.1 mg/dl (1.8-2.4); Potassium 3.3 mmol/L (3.5-5.1)
--- NOTE | 2019-12-31 17:37 | XRay Report ---
XR chest 1V portable CLINICAL HISTORY: Chest Pain COMPARISON STUDY: 12/17/2019 FINDINGS: The heart is enlarged. There is diffuse elevation of interstitium consistent with congestiv e failure. There are small pleural effusions. There are left basilar airspace opacities which while n onspecific likely represent atelectatic change.[ IMPRESSION: 1. Persistent congestive heart failure pattern with small bilateral pleural effusions 2. Nonspecific left basilar airspace opacities, likely atelectatic although a superimposed infectious process cannot be excluded ACT 112: Negative or not required by law. Electronically signed by: Jan Caruso M.D. 12/31/2019 5:36 PM
[2019-12-31 17:46] LABS: Albumin Globulin Ratio 0.7 (0.9-2); Bilirubin,Total 0.5 mg/dl (0.2-1); Globulin 4.5 gm/dl (2.5-4.0); Phosphorus 2.1 mg/dl (2.5-4.9); Thyroid Stimulating Hormone 0.558 uIu/ml (0.300-4.500); Total Protein 7.7 gm/dl (6.4-8.2); Troponin I 0.028 ng/ml (0-0.045)
--- NOTE | 2019-12-31 19:04 | Emergency Department Note ---
ED Provider Note NAME: MARY ANN DENNIS AGE: 84 SEX: M ARRIVES VIA: Ambulance INFORMANT: Patient ED PROVIDER(S): Elier Blankenship MD CHIEF COMPLAINT: Shortness of breath, new onset A. fib MEDICAL DECISION MAKING: The patient is a pleasant 84-year-old gentleman with a past medical history of chronic GI bleeding, anemia, end-stage renal disease on HD, type 2 diabetes, TIA, hypertension, hyperlipidemia who presents emergency department for evaluation of recent increased dyspnea on exertion found to have new onset A. fib at outpatient clinic. On arrival patient is in no acute distress, afebrile stable vital signs. On exam the patient does have labile heart rate going from the 90s to the 130s consistent with A. fib. Of note, the patient does respond to vagal maneuvers but still remains in an irregular rhythm. Chest x-ray with evidence of congestive failure with small bilateral pleural effusions setting of the patient's end-stage renal disease. There is a question of nonspecific left basilar opacities that are likely atelectasis given the patient's lack of infectious symptoms. WBC within normal limits. H/H9 0.5/30 and platelets 109 similar to prior range of values. Chemistry without metabolic acidosis. Creatinine is 3 in the setting of the patient's known end-stage renal disease. Potassium is 3.3, phosphorus 2.1 electrolytes and LFTs otherwise unremarkable. Troponin is detectable at 0.028, within normal limits. Patient at this time denies any significant symptoms. Patient was given 250 cc normal saline bolus given he appears somewhat clinically dry after his recent dialysis today with subsequent more stable heart rates in the 80s-low 100s. The patient's new onset atrial fibrillation in the setting of his comorbidities reasonable to admit the patient for further evaluation. Given the patient's history of bleeding would b e guarded about initiating anticoagulation. He is already on a beta-herminia but may require increased dosing. Case was discussed with Dr. Pittman, [facility] hospitalist, who will evaluate the patient for admission. Triage Nursing notes reviewed and agree them. Prior medical records reviewed Vital Signs: reviewed and remarkable for hypertension. Differential diagnosis: Premature contractions, electrolyte abnormality, cardiac dysrhythmia, thyroid dysfunction, pulmonary embolism, infection, gastrointestinal, as well as other pathologies. ER treatment provided: See below Diagnostics interpreted by me: ECG: EKG likely atrial flutter, 131 bpm, no ST elevation or depression, nonspecific ST abnormality TC 493 QRS 90 Repeat ECG: A. fib, 87 bpm, normal axis, no ST elevation or depression, QTC 4 7, QRS 80 Cardiac Monitoring: atrial flutter, 87-131 bpm, intermittent PVCs Laboratory studies: See below Imaging studies: XR chest 1V portable CLINICAL HISTORY: Chest Pain COMPARISON STUDY: 12/17/2019 FINDINGS: The heart is enlarged. There is diffuse elevation of interstitium consistent with congestive failure. There are small pleural effusions. There are left basilar airspace opacities which while nonspecific likely represent atelectatic change.[ IMPRESSION: 1. Persistent congestive heart failure pattern with small bilateral pleural effusions 2. Nonspecific left basilar airspace opacities, likely atelectatic although a superimposed infectious process cannot be excluded Consultation(s): None HPI: The patient is a pleasant 84-year-old gentleman with a past medical history of chronic GI bleeding, anemia, end-stage renal disease on HD, type 2 diabetes, TIA, hypertension, hyperlipidemia who presents emergency department for evaluation of recent increased dyspnea on exertion found to have new onset A. fib at outpatient clinic. Denies fevers, chills, cough, congestion, n/v/d. ROS: See above HPI for pertinent positives & negatives. A total of 10 systems reviewed and were otherwise negative. PAST MEDICAL HISTORY:See Below PAST SURGICAL HISTORY:See Below FAMILY HISTORY:See Below SOCIAL HISTORY:See Below HOME MEDICATIONS:See Below ALLERGIES:See Below VITALS:See Below PHYSICAL EXAMINATION: GENERAL: Awake, alert, chronically ill-appearing, in no distress HENT: Normocephalic, atraumatic. Oropharynx dry mucous membranes. EYES: Normal conjunctiva. Sclera non-icteric. NECK: Supple. No nuchal rigidity. FROM. No JVD. RESPIRATORY: Clear to auscultation. CARDIAC: Tachycardic rate, irregular rhythm. Extremities warm and well perfused. Pulses equal. ABDOMEN: Soft, non-distended. No tenderness to palpation. No rebound or guarding. No masses. RECTAL: Deferred. MUSCULOSKELETAL: Chest examination reveals no tenderness. The back is symmetrical on inspection without obvious abnormality. There is no CVA tenderness to palpation. No joint edema. LOWER EXTREMITIES: Calves are equal size bilaterally and non-tender. Scant bilateral lower extremity edema. No discoloration. NEURO: Normal sensorium. No sensory or motor deficits noted. SKIN: No rash or jaundice noted. 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 Diabetes mellitus type 2, uncontrolled IDDM Diabetic neuropathy Dyslipidemia Emphysema lung suggested per CXR End-stage renal disease on hemodialysis (Acute) DIALYSIS SATURDAY/SATURDAY/SATURDAY AT [facility] VIA PERMACATH GAVE (gastric antral vascular ectasia) Gout Hearing deficit LEFT History of blood transfusion 2/2 GIB felt r/t radiation therapy s/p total of 6 units PRBC's since 10/2018 Hypertension New onset a-fib 12/31/2019 Non-occlusive coronary artery disease Nontoxic multinodular goiter Osteoarthritis Prostate cancer S/P SURGERY, XRT Pulmonary nodules UNDER SURVEILLANCE Thrombocytopenia Transient ischemic attack (TIA) 2014--no deficits, no neurologist Type 2 diabetes mellitus Surgical History Amputation of left little finger H/O prostatectomy History of arthroscopy LEFT KNEE History of bowel resection BOWEL LACERATION DURING ATTEMPTING POLYPECTOMY History of cardiac cath X3 = NO STENTS History of cataract surgery RIGHT/LEFT History of colonoscopy History of esophagogastroduodenoscopy (EGD) + CAUTERIZATION (2/2 GIB) History of surgery fistulogram with Dr. Hanna through Right AV fistula 08/17/19 History of tooth extraction S/P arteriovenous (AV) fistula creation LEFT S/P arteriovenous (AV) fistula creation right 05/[address] Hanna S/P dialysis catheter insertion Permcath + attempted thrombectomy: 04/2019: MAC sedation at [facility] Family History Father Family history of diabetes mellitus Brother Prostate cancer Denies family history of Ovarian cancer Breast cancer Lung cancer Colorectal cancer Social History Preferred Language: Portuguese Communication Ability: Effective Visual Impairment: No Limitations Reducing System Operator Required: No Beliefs That Will Affect Care: None marital status: Current Living Situation: Family Current Living Situation Comment: grandson current occupational status: retired Feels Safe at Home: Yes Smoking Status: Never smoker Do You Dip or Chew Tobacco: No ; Second Hand Exposure: Yes (parents smoked/ smoked) ; Hx Alcohol Use: No Hx Substance Use: No Childhood Exposure to Second-Hand Smoke: Yes Diet Comment: regular caffeine: Yes (coffee, once in a while) during the past year weight has: remained stable Dental Care, Regularly: Yes Physical Activity Frequency: Does not Exercise Seatbelt Use: always Sunscreen Use: No Results & Data Vital Signs Vital Signs - 24 hr 12/31/19 16:31 12/31/19 16:34 12/31/19 16:40 Temperature Temperature Source Pulse Rate 137 H 134 H 83 Pulse Rate from SpO2 Sensor 135 H 135 H 102 H Respiratory Rate 15 21 19 Respiratory Effort / Characteristics Respiratory Depth Blood Pressure 216/110 H Blood Pressure Mean 121 Pulse Oximetry 97 98 96 Oxygen Delivery Method Sepsis Recent Fever Within 48 Hours Sepsis Action Taken by Nursing 12/31/19 16:43 12/31/19 16:50 12/31/19 17:00 Temperature 36.8 C Temperature Source Oral Pulse Rate 132 H 78 81 Pulse Rate from SpO2 Sensor 79 86 Respiratory Rate 18 20 28 H Respiratory Effort / Characteristics Non-Labored Respiratory Depth Normal Blood Pressure 216/110 H Blood Pressure Mean 145 Pulse Oximetry 99 95 96 Oxygen Delivery Method Room Air Sepsis Recent Fever Within 48 Hours No Sepsis Action Taken by Nursing No Action Required 12/31/19 17:10 12/31/19 17:12 12/31/19 17:20 Temperature Temperature Source Pulse Rate 102 H 84 Pulse Rate from SpO2 Sensor 98 H 86 Respiratory Rate 23 21 Respiratory Effort / Characteristics Respiratory Depth Blood Pressure Blood Pressure Mean Pulse Oximetry 93 99 94 Oxygen Delivery Method Room Air Sepsis Recent Fever Within 48 Hours Sepsis Action Taken by Nursing 12/31/19 17:30 12/31/19 17:38 12/31/19 17:40 Temperature Temperature Source Pulse Rate 89 79 79 Pulse Rate from SpO2 Sensor 80 88 Respiratory Rate 19 20 20 Respiratory Effort / Characteristics Respiratory Depth Blood Pressure 219/94 H Blood Pressure Mean 160 Pulse Oximetry 93 94 Oxygen Delivery Method Sepsis Recent Fever Within 48 Hours Sepsis Action Taken by Nursing 12/31/19 17:50 12/31/19 17:55 12/31/19 18:00 Temperature Temperature Source Pulse Rate 74 77 83 Pulse Rate from SpO2 Sensor 82 78 79 Respiratory Rate 18 24 20 Respiratory Effort / Characteristics Respiratory Depth Blood Pressure 200/80 H Blood Pressure Mean 135 Pulse Oximetry 95 94 97 Oxygen Delivery Method Sepsis Recent Fever Within 48 Hours Sepsis Action Taken by Nursing 12/31/19 18:05 12/31/19 18:10 12/31/19 18:15 Temperature Temperature Source Pulse Rate 78 73 75 Pulse Rate from SpO2 Sensor 78 71 64 Respiratory Rate 19 18 18 Respiratory Effort / Characteristics Respiratory Depth Blood Pressure Blood Pressure Mean Pulse Oximetry 94 97 99 Oxygen Delivery Method Sepsis Recent Fever Within 48 Hours Sepsis Action Taken by Nursing 12/31/19 18:20 12/31/19 18:25 12/31/19 18:30 Temperature Temperature Source Pulse Rate 78 74 78 Pulse Rate from SpO2 Sensor 74 72 78 Respiratory Rate 17 18 19 Respiratory Effort / Characteristics Respiratory Depth Blood Pressure 201/91 H Blood Pressure Mean 126 Pulse Oximetry 96 94 94 Oxygen Delivery Method Sepsis Recent Fever Within 48 Hours Sepsis Action Taken by Nursing 12/31/19 18:35 12/31/19 18:40 12/31/19 18:45 Temperature Temperature Source Pulse Rate 75 85 81 Pulse Rate from SpO2 Sensor 76 87 80 Respiratory Rate 21 16 19 Respiratory Effort / Characteristics Respiratory Depth Blood Pressure Blood Pressure Mean Pulse Oximetry 97 94 95 Oxygen Delivery Method Sepsis Recent Fever Within 48 Hours Sepsis Action Taken by Nursing 12/31/19 18:50 12/31/19 18:55 12/31/19 19:00 Temperature Temperature Source Pulse Rate 75 82 130 H Pulse Rate from SpO2 Sensor 77 81 130 H Respiratory Rate 14 15 17 Respiratory Effort / Characteristics Respiratory Depth Blood Pressure 183/98 H Blood Pressure Mean 119 Pulse Oximetry 97 97 98 Oxygen Delivery Method Sepsis Recent Fever Within 48 Hours Sepsis Action Taken by Nursing 12/31/19 19:05 12/31/19 19:10 12/31/19 19:44 Temperature Temperature Source Pulse Rate 130 H 128 H 83 Pulse Rate from SpO2 Sensor 131 H 128 H 108 H Respiratory Rate 15 16 19 Respiratory Effort / Characteristics Respiratory Depth Blood Pressure 159/78 H Blood Pressure Mean 106 Pulse Oximetry 92 97 96 Oxygen Delivery Method Room Air Sepsis Recent Fever Within 48 Hours Sepsis Action Taken by Nursing 12/31/19 20:00 12/31/19 20:30 12/31/19 21:00 Temperature Temperature Source Pulse Rate 79 132 H 92 H Pulse Rate from SpO2 Sensor 81 133 H 111 H Respiratory Rate 21 23 18 Respiratory Effort / Characteristics Respiratory Depth Blood Pressure 164/61 H 160/97 H 159/59 H Blood Pressure Mean 79 114 79 Pulse Oximetry 93 93 93 Oxygen Delivery Method Room Air Room Air Room Air Sepsis Recent Fever Within 48 Hours Sepsis Action Taken by Nursing 12/31/19 21:31 Temperature Temperature Source Pulse Rate 86 Pulse Rate from SpO2 Sensor 93 H Respiratory Rate 21 Respiratory Effort / Characteristics Respiratory Depth Blood Pressure 166/62 H Blood Pressure Mean 94 Pulse Oximetry 92 Oxygen Delivery Method Sepsis Recent Fever Within 48 Hours Sepsis Action Taken by Nursing Laboratory Data Attestation: I reviewed the patient's lab results. Result diagrams: 12/31/19 17:12 12/31/19 17:12 Lab Results 12/31/19 12/31/19 12/31/19 Range/Units 17:12 17:12 17:12 WBC 5.18 (4.8-10.8) K/uL RBC 3.11 L (4.7-6.1) M/uL Hgb 9.5 L (14.0-18.0) g/dL Hct 30.0 L (42-52) % MCV 96.5 (80-100) fL MCH 30.5 (25-34) pg MCHC 31.7 L (32-36) g/dL RDW Std Deviation 51.8 H (36.4-46.3) fL RDW Coeff of Casandra 15.0 H (11.5-14.5) % Plt Count 109 L (130-400) K/uL MPV 9.6 (7.4-10.4) fL Immature Gran % (Auto) 0.8 % Neut % (Auto) 68.3 % Lymph % (Auto) 20.1 % Alpine % (Auto) 8.5 % Eos % (Auto) 2.1 % Baso % (Auto) 0.2 % Immature Gran # (Auto) 0.04 H (0.00-0.02) K/uL Neut # (Auto) 3.54 (1.4-6.5) K/uL Lymph # (Auto) 1.04 L (1.2-3.4) K/uL Alpine # (Auto) 0.44 (0.11-0.59) K/uL Eos # (Auto) 0.11 (0-0.5) K/uL Baso # (Auto) 0.01 (0-0.2) K/uL PT 11.1 (9.0-12.0) Seconds INR 1.1 (0.9-1.1) APTT 27.3 (21.0-31.0) Seconds PTT Ratio 1.0 Sodium 138 (136-145) mmol/L Potassium 3.3 L (3.5-5.1) mmol/L Chloride 99 (98-107) mmol/L Carbon Dioxide 35 H (21-32) mmol/L Anion Gap 4.0 (3-11) BUN 14 (7-18) mg/dl Creatinine 3.05 H (0.6-1.4) mg/dl Est Cr Clr Drug Dosing 19.6 ml/min Est GFR ( Amer) 20.6 Est GFR (Non-Af Amer) 17.7 BUN/Creatinine Ratio 4.5 L (10-20) Glucose 84 (70-99) mg/dl POC Glucose (70-99) mg/dl Calcium 8.7 (8.5-10.1) mg/dl Phosphorus 2.1 L (2.5-4.9) mg/dl Magnesium 2.1 (1.8-2.4) mg/dl Total Bilirubin 0.5 (0.2-1) mg/dl AST 23 (15-37) U/L ALT 21 (12-78) U/L Alkaline Phosphatase 51 (45-117) U/L Troponin I 0.028 (0-0.045) ng/ml Total Protein 7.7 (6.4-8.2) gm/dl Albumin 3.2 L (3.4-5.0) gm/dl Globulin 4.5 H (2.5-4.0) gm/dl Albumin/Globulin Ratio 0.7 L (0.9-2) Lipase 100 (73-393) U/L TSH 0.558 (0.300-4.500) uIu/ml 12/31/19 Range/Units 19:47 WBC (4.8-10.8) K/uL RBC (4.7-6.1) M/uL Hgb (14.0-18.0) g/dL Hct (42-52) % MCV (80-100) fL MCH (25-34) pg MCHC (32-36) g/dL RDW Std Deviation (36.4-46.3) fL RDW Coeff of Casandra (11.5-14.5) % Plt Count (130-400) K/uL MPV (7.4-10.4) fL Immature Gran % (Auto) % Neut % (Auto) % Lymph % (Auto) % Alpine % (Auto) % Eos % (Auto) % Baso % (Auto) % Immature Gran # (Auto) (0.00-0.02) K/uL Neut # (Auto) (1.4-6.5) K/uL Lymph # (Auto) (1.2-3.4) K/uL Alpine # (Auto) (0.11-0.59) K/uL Eos # (Auto) (0-0.5) K/uL Baso # (Auto) (0-0.2) K/uL PT (9.0-12.0) Seconds INR (0.9-1.1) APTT (21.0-31.0) Seconds PTT Ratio Sodium (136-145) mmol/L Potassium (3.5-5.1) mmol/L Chloride (98-107) mmol/L Carbon Dioxide (21-32) mmol/L Anion Gap (3-11) BUN (7-18) mg/dl Creatinine (0.6-1.4) mg/dl Est Cr Clr Drug Dosing ml/min Est GFR ( Amer) Est GFR (Non-Af Amer) BUN/Creatinine Ratio (10-20) Glucose (70-99) mg/dl POC Glucose 83 (70-99) mg/dl Calcium (8.5-10.1) mg/dl Phosphorus (2.5-4.9) mg/dl Magnesium (1.8-2.4) mg/dl Total Bilirubin (0.2-1) mg/dl AST (15-37) U/L ALT (12-78) U/L Alkaline Phosphatase (45-117) U/L Troponin I (0-0.045) ng/ml Total Protein (6.4-8.2) gm/dl Albumin (3.4-5.0) gm/dl Globulin (2.5-4.0) gm/dl Albumin/Globulin Ratio (0.9-2) Lipase (73-393) U/L TSH (0.300-4.500) uIu/ml Administered Medications Albuterol (Ventolin 0.083% 2.5mg/3ml) 2.5 mg INH Q4H PRN PRN Reason: shortness of breath or wheezing Stop: 01/30/20 22:15 Last Admin: 01/01/20 03:54 Dose: 2.5 mg Documented by: [id number] Aspirin (Ecotrin Ectab) 81 mg PO TuThSa@0900 KASSANDRA Stop: 01/30/20 22:15 Last Admin: 12/31/19 22:39 Dose: 81 mg Documented by: [id number] Docusate Sodium (Colace) 50 mg PO BID KASSANDRA Stop: 01/30/20 22:12 Last Admin: 12/31/19 22:38 Dose: 50 mg Documented by: [id number] Insulin Aspart (Novolog Flexpen) 0 units SC ACHS KASSANDRA Stop: 01/30/20 22:15 Last Admin: 12/31/19 22:44 Dose: 1 units Documented by: [id number] Cosigned by: [id number] Insulin Glargine (Lantus Solostar Pen) 5 units SC BID KASSANDRA Stop: 01/30/20 22:15 Last Admin: 12/31/19 22:44 Dose: 5 units Documented by: [id number] Cosigned by: [id number] Metoprolol Tartrate (Lopressor) 25 mg PO PM KASSANDRA Stop: 01/30/20 22:12 Last Admin: 12/31/19 22:39 Dose: 25 mg Documented by: [id number] Pravastatin Sodium (Pravachol) 40 mg PO QPM KASSANDRA Stop: 01/30/20 22:15 Last Admin: 12/31/19 22:39 Dose: 40 mg Documented by: [id number] Discontinued Medications Sodium Chloride (Nss) 250 mls @ 999 mls/hr IV .Q16M ONE Stop: 12/31/19 16:53 Last Infusion: 12/31/19 17:45 Dose: 0 mls/hr Documented by: [id number] Admin: 12/31/19 17:12 Dose: 999 mls/hr Documented by: [id number] Potassium Chloride (Klor-Con M20) 20 meq PO NOW STA Stop: 12/31/19 22:17 Last Admin: 12/31/19 22:39 Dose: 20 meq Documented by: [id number] Blood Pressure Blood Pressure Findings: Elevated blood pressure Blood Pressure Disposition: further management by hospitalist Discharge Plan Visit Data *Final* Discharge Date/Time: 12/31/19 21:51 Chief Complaint: Cardiac Assessment ED Provider: Elier Blankenship Discharge Problem: Atrial fibrillation with rapid ventricular response, End-stage renal disease on hemodialysis, Shortness of breath, New onset a-fib Patient Disposition: Admitted As Inpatient Discharge Instructions Interventions: ED Discharge Assessment Last Done: 12/31/19 21:51 Meds Home Medications and Allergies Home Medications Medication Instructions Recorded Confirmed Type calcium acetate(phosphat bind) 667 1,334 mg PO TIDM cap 03/02/19 12/31/19 History mg capsule vit B complx, C-iron 8 mg-folic 1 tab PO QAM tab 03/05/19 12/31/19 History acid 800 mcg-D3 1,000 unit-zinc tablet docusate sodium [Colace Clear] 50 mg PO BID 04/17/19 12/31/19 History Allergies Allergy/AdvReac Type Severity Reaction Status Date / Time clarithromycin AdvReac Intermediate confusion Verified 12/31/19 14:43 fish oil AdvReac Intermediate hx of Verified 12/31/19 14:43 hemorrhage in past Sulfa (Sulfonamide AdvReac Intermediate severe Verified 12/31/19 14:43 Antibiotics) agitation/delirium
--- NOTE | 2019-12-31 21:01 | History & Physical Report ---
Date of Service December 31, 2019 Assessment & Plan (1) New onset a-fib: Patient is a very pleasant 84-year-old man who presents the hospital with new onset atrial fibrillation Atrial fibrillation Patient was found to be atrial fibrillation at dialysis appointment was confirmed at primary care's office and was sent to emergency department today Rates as high as the 130s, corrected with 250 cc normal saline and vagal maneuvers currently in the 80s Patient appears to be a very poor candidate candidate for anticoagulation has bled score at least 6 We will admit to telemetry for rate monitoring, he is on beta-herminia metoprolol tartrate 50 mg every morning 25 mg every afternoon will increase to 50 mg twice daily Will get echo in morning Cardiology consulted Hypokalemia Goal would be greater than 4, however with patient's ESRD and need for dialysis do not want to be too aggressive in replacement Will give 20 meq kcl PO now Hypophosphatemia In this patient on phosphate binder on hemodialysis do not want to replace too aggressively, Will hold off on k phos at this time and just hold patients calcium acetate phos binder and he can increase his phos through his diet DMII Placed on sliding scale A1C ordered Lower limb erythema and edema Patient says it is chronic with no acute change afebrile, normal white count Will not treat as cellulitis for now Detectable troponin Likely secondary to ESRD, patient not having any chest pain or tightness at this time Appears to be near his baseline from previous admissions ESRD dialysis Hopefully home by saturday dialysis but if not will need renal consult and inpatient dialysis DVT PPx: SCD's F/E/N: DMII diet Dispo: Admitting as inpatient for echo, evaluation of new onset a fib and rate control DNR/DNI (2) Bronchitis: (3) History of hypertension: (4) Anemia: History of Present Illness Primary Care Provider: Noel Raymundo MD Isidro Madden is an 84 year old gentleman with a past medical history significant for ESRD (on dialysis ), DMII, CAD with previous [place], TIA, prostate cancer status post radiation and resultant hematuria and hematochezia off and on who is here for new onset atrial fibrillation. Patient had been at dialysis today and was recommended that he check in with his primary care doctor before resuming dialysis. PCP performed an ECG which showed new onset A fib. Patient has been feeling more short of breath for some time, particularly with exertion, this has been worse in last two days. He has also been dealing with bronchitis recently for which his pcp prescribed doxycycline and gave albuterol inhaler. He feels like he is doing better from that standpoint. He also has a cough, denies any fevers, recent sick contacts, or recent travel. He gets dialysis through fistula in right arm finished dialysis today. Patient presented to his PCPs office earlier today, was found to be in irregular regular rhythm, rate in the 130s ECG taken which appeared to show atrial fibrillation with RVR. Patient was advised to present to emergency department. On arrival to emergency department patient was found to be hypertensive, with heart rates in the 120s and 130s. Patient was able to control heart rate with vagal maneuvers and was bolused 250 cc of normal saline. Blood work significant for anemia with hemoglobin 9.5 which is chronic secondary to blood loss from his chronic hematochezia hematuria, and thrombocytopenia which is also chronic. Potassium of 3.3, creatinine 3.05, phosphorus 2.1 mag 2.1, detectable troponin 0.028 but this appears to be about the patient's baseline. At time my evaluation, patient resting comfortably and his heart rate had decreased to about 90 bpm. Patient lives with his grandson at home, he is a his passed by 20 years ago. He is retired, he is a non-smoker nondrinker does not use any drugs recreationally. After discussion of CODE STATUS patient would like to be DNR/DNI Allergies Allergy/AdvReac Type Severity Reaction Status Date / Time clarithromycin AdvReac Intermediate confusion Verified 12/31/19 14:43 fish oil AdvReac Intermediate hx of Verified 12/31/19 14:43 hemorrhage in past Sulfa (Sulfonamide AdvReac Intermediate severe Verified 12/31/19 14:43 Antibiotics) agitation/delirium Home Medications Home Medications Medication Instructions Recorded Confirmed Type calcium acetate(phosphat bind) 667 1,334 mg PO TIDM cap 03/02/19 12/31/19 History mg capsule vit B complx, C-iron 8 mg-folic 1 tab PO QAM tab 03/05/19 12/31/19 History acid 800 mcg-D3 1,000 unit-zinc tablet Colace Clear 50 mg PO BID 04/17/19 12/31/19 History folic acid 1 mg tablet 1 mg PO QAM #90 tab 07/20/19 12/31/19 Rx FreeStyle Lancets 28 gauge #200 ea NS 10/19/19 12/31/19 Rx aspirin 81 mg tablet,delayed 81 mg PO 3XWK #270 tab 10/21/19 12/31/19 Rx release insulin aspar prt-insulin aspart See Rx Instructions SUBCUT QAM #9 10/26/19 12/31/19 Rx 100 unit/mL (70-30) subcutaneous box soln BD Ultra-Fine Tiffanie Pen Needle 32 #200 ea NS 11/03/19 12/31/19 Rx gauge x 5/32" metoprolol tartrate 25 mg tablet See Rx Instructions PO QAM #270 tab 11/30/19 12/31/19 Rx pravastatin 40 mg tablet 40 mg PO QPM #90 tab 12/16/19 12/31/19 Rx nebulizers #1 ea 12/23/19 12/31/19 Rx albuterol sulfate 2.5 mg INH .COMPLEX PRN #75 ml 12/24/19 12/31/19 Rx diltiazem HCl 120 mg PO QAM #30 cap 01/01/20 Rx Past Med/Surg History Medical History (Updated 01/02/20 @ 00:03 by Ankit Melgoza) Anemia 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 S/P EGD WITH CAUTERIZATION 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 Diabetes mellitus type 2, uncontrolled IDDM Diabetic neuropathy Dyslipidemia Emphysema lung suggested per CXR End-stage renal disease on hemodialysis (Acute) DIALYSIS SATURDAY/SATURDAY/SATURDAY AT [facility] VIA PERMACATH GAVE (gastric antral vascular ectasia) Gout Hearing deficit LEFT History of blood transfusion 2/2 GIB felt r/t radiation therapy s/p total of 6 units PRBC's since 10/2018 Hypertension Non-occlusive coronary artery disease Nontoxic multinodular goiter Osteoarthritis Prostate cancer S/P SURGERY, XRT Pulmonary nodules UNDER SURVEILLANCE Thrombocytopenia Transient ischemic attack (TIA) 2014--no deficits, no neurologist Type 2 diabetes mellitus Surgical History Amputation of left little finger H/O prostatectomy History of arthroscopy LEFT KNEE History of bowel resection BOWEL LACERATION DURING ATTEMPTING POLYPECTOMY History of cardiac cath X3 = NO STENTS History of cataract surgery RIGHT/LEFT History of colonoscopy History of esophagogastroduodenoscopy (EGD) + CAUTERIZATION (/ GIB) History of surgery fistulogram with Dr. Hanna through Right AV fistula 08/17/19 History of tooth extraction S/P arteriovenous (AV) fistula creation LEFT S/P arteriovenous (AV) fistula creation right 05/[address] Hanna S/P dialysis catheter insertion Permcath + attempted thrombectomy: 04/2019: MAC sedation at [facility] Family History Father Family history of diabetes mellitus Brother Prostate cancer Denies family history of Ovarian cancer Breast cancer Lung cancer Colorectal cancer Social History Preferred Language: Bulgarian Communication Ability: Effective Visual Impairment: No Limitations Greenhouse Florist Required: No Beliefs That Will Affect Care: None marital status: Current Living Situation: Family Current Living Situation Comment: grandson current occupational status: retired Feels Safe at Home: Yes Smoking Status: Never smoker Second Hand Exposure: Yes (parents smoked/ smoked) ; Hx Alcohol Use: No Hx Substance Use: No Childhood Exposure to Second-Hand Smoke: Yes Diet Comment: regular caffeine: Yes (coffee, once in a while) during the past year weight has: remained stable Dental Care, Regularly: Yes Physical Activity Frequency: Does not Exercise Seatbelt Use: always Sunscreen Use: No Review of Systems Review of Systems: No constitutional: Patient denies any fevers chills loss of appetite, does endorse some fatigue Eyes: No change in visual acuity ENMT: Patient has been congested and coughing up rust colored sputum for the last couple weeks, no nasal congestion at this time Respiratory: Cough present, patient has been feeling short of breath for last few days, worse on exertion, no wheezing no chest pain Cardio: No chest pain does feel some palpitations, no chest tightness, lower limb edema same as has been for years, no changes Gastrointestinal: No nausea vomiting diarrhea, patient does endorse hematochezia on occasion and says this is chronic since radiation therapy for his prostate cancer he has noticed no changes to the frequency : Patient does have hematuria often, but lately his urine output has been minimal and he has not noticed it Integumentary patient with bilateral bright red legs, patient says this is chronic secondary to fall from ladder and nonhealing wounds Physical Exam Physical Exam: Constitutional: Well-appearing 84-year-old man resting comfortably in bed does not appear to be in any acute distress Eyes: Extraocular muscle movements intact bilaterally, pupils equal round reactive to light and accommodation ENMT: Patient with no unrealized detected externally Neck: Supple, no masses palpated Respiratory: Chest expansion equal, no evidence of labored breathing, no accessory muscle use, breath sounds vesicular throughout good air entry globally Cardiovascular: Patient irregularly irregular rhythm, rate elevated, heart sounds dual no murmurs rubs skips or gallops, patient with bilateral 2+ pitting edema and erythema of lower limbs which she says is chronic Gastrointestinal: Abdomen soft abdomen nontender, patient does have large umbilical hernia presents Integumentary: Patient with red swollen skin of bilateral lower extremities, this is chronic for him nontender slightly warmer than surrounding tissue Results & Data Vital Signs (Past 12 Hours) Vital Signs Temp Pulse Resp BP Pulse Ox 12/31/19 19:10 128 H 16 97 12/31/19 19:05 130 H 15 92 12/31/19 19:00 130 H 17 183/98 H 98 12/31/19 18:55 82 15 97 12/31/19 18:50 75 14 97 12/31/19 18:45 81 19 95 12/31/19 18:40 85 16 94 12/31/19 18:35 75 21 97 12/31/19 18:30 78 19 201/91 H 94 12/31/19 18:25 74 18 94 12/31/19 18:20 78 17 96 12/31/19 18:15 75 18 99 12/31/19 18:10 73 18 97 12/31/19 18:05 78 19 94 12/31/19 18:00 83 20 200/80 H 97 12/31/19 17:55 77 24 94 12/31/19 17:50 74 18 95 12/31/19 17:40 79 20 94 12/31/19 17:38 79 20 219/94 H 93 12/31/19 17:30 89 19 12/31/19 17:20 84 21 94 12/31/19 17:12 99 12/31/19 17:10 102 H 23 93 12/31/19 17:00 81 28 H 96 12/31/19 16:50 78 20 95 12/31/19 16:43 36.8 C 132 H 18 216/110 H 99 12/31/19 16:40 83 19 96 12/31/19 16:34 134 H 21 98 12/31/19 16:31 137 H 15 216/110 H 97 Supervising Physician Co-Signing Physician Notes Attending addendum: I have physically seen this patient, have supervised the medical residents activities, and agree with the H&P unless as otherwise noted. Assessment and Plan: New onset atrial fibrillation with RVR- The patient will be admitted to telemetry for serial cardiac enzymes, serial EKG's, cardiac rhythm monitoring and a 2-D echocardiogram with Dopplers. Increase metoprolol tartrate from 50 mg in the morning and 25 mg in the evening to 50 mg twice daily. Likely mildly hypovolemic post dialysis today, as responded to normal saline boluses Target potassium 4 magnesium 2 Poor candidate for anticoagulation Consult cardiology ESRD on HD- Gently replace potassium as noted with 20 mEq potassium chloride orally x1 Would not replace phosphorus at this time. Consult nephrology Repeat BMP and magnesium level along with phosphorus in the a.m. Remainder of orders and notations as noted Resident Activity Tracking Resident Involvement: Resident Care Provided Care Provided: Adult Hospital Medicine
[2019-12-31] MEDS ORDERED: INFLUENZA ADMINISTRATION CHARGE ONE (21:12)
[2019-12-31] MEDS ORDERED: INFLUENZA VACCINE HIGH DOSE 65+ 0.5 ML SYR IM ONE (21:12)
[2019-12-31] MEDS ORDERED: METOPROLOL TARTRATE 25 MG TAB PO SCH (22:13)
[2019-12-31] MEDS ORDERED: PRAVASTATIN SOD 40 MG TAB PO SCH (22:16)
[2019-12-31] MEDS ORDERED: POTASSIUM CHLORIDE 20 MEQ TABCR PO STA (22:16)
[2019-12-31] MEDS ORDERED: ONDANSETRON INJ 2 MG/ML 2 ML VIAL IV PRN (22:16)
[2019-12-31] MEDS ORDERED: GLUCOSE 40% GEL 15 GM TUBE PO PRN (22:16)
[2019-12-31] MEDS ORDERED: GLUCAGON FOR INJ 1 MG VIAL SQ PRN (22:16)
[2019-12-31] MEDS ORDERED: POLYETHYLENE (MIRALAX) 17 GM PACK PO PRN (22:16)
[2019-12-31] MEDS ORDERED: ACETAMINOPHEN 325 MG TAB PO PRN (22:16)
[2019-12-31] MEDS ORDERED: GLUCOSE 10 TABS/TUBE PO PRN (22:16)
[2019-12-31] MEDS ORDERED: ASPIRIN 81 MG ECTAB PO SCH (22:16)
[2019-12-31] MEDS ORDERED: DEXTROSE 50% 50 ML SYRINGE IV PRN (22:16)
[2019-12-31] MEDS ORDERED: CARBOHYDRATES FOR HYPOGLYCEMIA PO PRN (22:16)
[2019-12-31] MEDS: DOCUSATE SODIUM SYRUP 100 MG/10 ML UDC PO SCH (22:38)
[2019-12-31] MEDS: INSULIN GLARGINE SOLOSTAR 100 UNITS/ML 3 ML PEN SC SCH (22:44)
[2019-12-31] MEDS: INSULIN ASPART 100 UNITS/ML 3 ML PEN SC SCH (22:44)
[2020-01-01] MEDS: ALBUTEROL 0.083% NEBU SOLN 3 ML VIAL INH PRN ×2 (03:54→08:04)
[2020-01-01 06:10] LABS: Estimated Average Glucose 163 mg/dl; Hemoglobin A1C 7.3 % (4.5-5.6)
--- NOTE | 2020-01-01 07:25 | Electrocardiogram Report ---
Test Reason : Blood Pressure : / mmHG Vent. Rate : 131 BPM Atrial Rate : 133 BPM P-R Int : 000 ms QRS Dur : 090 ms QT Int : 334 ms P-R-T Axes : 000 061 021 degrees QTc Int : 493 ms Poor data quality, interpretation may be adversely affected Supraventricular tachycardia Nonspecific ST abnormality Abnormal ECG When compared with ECG of 17-DEC-2019 01:14, Supraventricular tachycardia has replaced Sinus rhythm HR has increased by 48 bpm Confirmed by Phani Rodriguez ([id number]) on 01/01/2020 7:24:39 AM Referred By: Noel Raymundo Confirmed By:Phani Rodriguez
--- NOTE | 2020-01-01 07:29 | Electrocardiogram Report ---
Test Reason : Blood Pressure : / mmHG Vent. Rate : 087 BPM Atrial Rate : 080 BPM P-R Int : 288 ms QRS Dur : 080 ms QT Int : 380 ms P-R-T Axes : 000 058 060 degrees QTc Int : 457 ms Poor data quality, interpretation may be adversely affected Sinus rhythm with 1st degree A-V block with frequent Premature atrial complexes Abnormal ECG When compared with ECG of 31-DEC-2019 16:31, Sinus rhythm has replaced Supraventricular tachycardia Vent. rate has decreased BY 44 BPM Confirmed by Phani Rodriguez ([id number]) on 01/01/2020 7:29:39 AM Referred By: Noel Raymundo Confirmed By:Phani Rodriguez
--- NOTE | 2020-01-01 07:38 | Electrocardiogram Report ---
Test Reason : Blood Pressure : / mmHG Vent. Rate : 074 BPM Atrial Rate : 074 BPM P-R Int : 262 ms QRS Dur : 088 ms QT Int : 374 ms P-R-T Axes : 075 051 067 degrees QTc Int : 415 ms Sinus rhythm with 1st degree A-V block Otherwise normal ECG When compared with ECG of 31-DEC-2019 19:26, Premature atrial complexes are no longer Present Confirmed by Phani Rodriguez ([id number]) on 01/01/2020 7:38:07 AM Referred By: Noel Raymundo Confirmed By:Phani Rodriguez
[2020-01-01] MEDS: DOCUSATE SODIUM SYRUP 100 MG/10 ML UDC PO SCH (07:52)
[2020-01-01] MEDS: INSULIN GLARGINE SOLOSTAR 100 UNITS/ML 3 ML PEN SC SCH (07:53)
[2020-01-01] MEDS: INSULIN ASPART 100 UNITS/ML 3 ML PEN SC SCH ×2 (07:54→12:51)
[2020-01-01] MEDS ORDERED: METOPROLOL TARTRATE 25 MG TAB PO SCH (09:00)
[2020-01-01] MEDS ORDERED: FOLIC ACID 1 MG TAB PO SCH (09:00)
[2020-01-01] MEDS ORDERED: CEROVITE ADV FORMULA TAB PO SCH (09:00)
[2020-01-01] MEDS ORDERED: AMLODIPINE BESYLATE 5 MG TAB PO SCH (09:00)
[2020-01-01] MEDS ORDERED: dilTIAZem HCL 120 MG CAPCR PO SCH (10:00)
--- NOTE | 2020-01-01 11:05 | XCELERA ---
[id number]
--- NOTE | 2020-01-01 11:19 | Cardiology Consultation ---
Date of Consultation January 01, 2020 Assessment & Plan (1) Paroxysmal atrial tachycardia: (2) Hypertension: (3) Shortness of breath: (4) Non-occlusive coronary artery disease: (5) Pulmonary hypertension: ASSESSMENT/PLAN: 1. Paroxysmal atrial tachycardia: Initial ECG demonstrated what appears to be SVT versus atrial tachycardia. He is having atrial runs on telemetry but currently asymptomatic. Will replace amlodipine with diltiazem 120 mg once daily. Continue metoprolol at current dose. Medications can be further adjusted as appropriate. If these medications to not suppress the tachycardia sufficiently, could then consider antiarrhythmic approach in the future. Cannot exclude atrial fibrillation as an outpatient however that ECG is not available for review. Even if he has atrial fibrillation, with his significant bleeding history, he would not be optimal anticoagulation candidate. Replete electrolytes as appropriate. 2. Hypertension: Blood pressure elevated. Replacing amlodipine with diltiazem. Will otherwise defer to hospitalist service and Nephrology as an outpatient. 3. Shortness of breath: He admits shortness of breath when he was noticing tachyarrhythmia. He now feels back to baseline. He also has been recently diagnosed with bronchitis which is improving. He has chronic lower extremity edema. Volume status is managed by Nephrology. He does not carry a history of CHF. 4. Pulmonary hypertension: This can be worked up as an outpatient if appropriate. 5. CAD: Nonobstructive. Had some chest tightness during tachyarrhythmia but otherwise has denied any other chest pain or angina. Continue outpatient regimen. 6. Disposition: Plan as noted above. Plan of care discussed with Dr. Wells the primary hospitalist service. If no significant tachyarrhythmia throughout the rest of the day, can be discharged from a cardiac perspective. He follows with Dr. Glover in the outpatient setting. Thank you for allowing me to participate in the care of your patient. Please call for any other questions or concerns. Sincerely, Ian Rodriguez M.D. History of Present Illness Reason for Consultation: "Atrial fibrillation and possible CHF" Requesting Physician: Dr. Vázquez Attending Physician: Cyril Wells MD History of Present Illness Mr. 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 He also had a TIA in 2014. 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 Glover. He was admitted to [facility] [place] on 12/31/2019 for concern of atrial fibrillation. He apparently had been at dialysis and was sent to his PCP at which point he was thought to be in atrial fibrillation. Unfortunately at the time of this consultation, the outpatient ECG is not available for review. He admits however that he felt palpitations intermittently and with palpitations would feel more short of breath with some tightness in his chest. He has been treated recently for bronchitis as he is coughing up dark yellow/brown sputum. He denies fevers or recent travel. While here, he had an ECG which demonstrated what appears to be SVT and then sinus rhythm with first-degree AV block with atrial runs/PACs noted on ECG and telemetry. No definite atrial fibrillation was noted on ECGs done here. He currently feels back to baseline. He denies orthopnea, syncope, near- syncope, angina, or current bleeding. He admits that he has required blood transfusions in September, October, and November just recently and before that has required blood transfusions in the past as well. He estimates 11 blood transfusions in total. He states that he has chronic lower extremity edema which is at baseline. He has chronic erythema of his lower extremities as well per his report. Review of systems: As above. Review of systems otherwise negative/unremarka ble. Family history: Diabetes. Social history: He denies smoking, alcohol, or drug abuse. He lives at home with his grandson. He has a daughter. He is a . He is unaccompanied. Allergies Allergy/AdvReac Type Severity Reaction Status Date / Time clarithromycin AdvReac Intermediate confusion Verified 12/31/19 14:43 fish oil AdvReac Intermediate hx of Verified 12/31/19 14:43 hemorrhage in past Sulfa (Sulfonamide AdvReac Intermediate severe Verified 12/31/19 14:43 Antibiotics) agitation/delirium Home Medications Home Medications Medication Instructions Recorded Confirmed Type calcium acetate(phosphat bind) 667 1,334 mg PO TIDM cap 03/02/19 12/31/19 History mg capsule vit B complx, C-iron 8 mg-folic 1 tab PO QAM tab 03/05/19 12/31/19 History acid 800 mcg-D3 1,000 unit-zinc tablet docusate sodium [Colace Clear] 50 mg PO BID 04/17/19 12/31/19 History folic acid 1 mg tablet 1 mg PO QAM #90 tab 07/20/19 12/31/19 Rx FreeStyle Lancets 28 gauge #200 ea NS 10/19/19 12/31/19 Rx aspirin 81 mg tablet,delayed 81 mg PO 3XWK #270 tab 10/21/19 12/31/19 Rx release insulin aspar prt-insulin aspart See Rx Instructions SUBCUT QAM #9 10/26/19 12/31/19 Rx 100 unit/mL (70-30) subcutaneous box soln BD Ultra-Fine Tiffanie Pen Needle 32 #200 ea NS 11/03/19 12/31/19 Rx gauge x 5/32" metoprolol tartrate 25 mg tablet See Rx Instructions PO QAM #270 tab 11/30/19 12/31/19 Rx pravastatin 40 mg tablet 40 mg PO QPM #90 tab 12/16/19 12/31/19 Rx nebulizers #1 ea 12/23/19 12/31/19 Rx albuterol sulfate 2.5 mg INH .COMPLEX PRN #75 ml 12/24/19 12/31/19 Rx amlodipine 5 mg tablet 5 mg PO QAM #90 tab 12/31/19 12/31/19 Rx Patient History Medical History Anemia 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 S/P EGD WITH CAUTERIZATION 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 Diabetes mellitus type 2, uncontrolled IDDM Diabetic neuropathy Dyslipidemia Emphysema lung suggested per CXR End-stage renal disease on hemodialysis (Acute) DIALYSIS SATURDAY/SATURDAY/SATURDAY AT [facility] VIA PERMACATH GAVE (gastric antral vascular ectasia) Gout Hearing deficit LEFT History of blood transfusion 2/2 GIB felt r/t radiation therapy s/p total of 6 units PRBC's since 10/2018 Hypertension New onset a-fib 12/31/2019 Non-occlusive coronary artery disease Nontoxic multinodular goiter Osteoarthritis Prostate cancer S/P SURGERY, XRT Pulmonary nodules UNDER SURVEILLANCE Thrombocytopenia Transient ischemic attack (TIA) 2014--no deficits, no neurologist Type 2 diabetes mellitus Surgical History Amputation of left little finger H/O prostatectomy History of arthroscopy LEFT KNEE History of bowel resection BOWEL LACERATION DURING ATTEMPTING POLYPECTOMY History of cardiac cath X3 = NO STENTS History of cataract surgery RIGHT/LEFT History of colonoscopy History of esophagogastroduodenoscopy (EGD) + CAUTERIZATION (2/2 GIB) History of surgery fistulogram with Dr. Hanna through Right AV fistula 08/17/19 History of tooth extraction S/P arteriovenous (AV) fistula creation LEFT S/P arteriovenous (AV) fistula creation right 05/[address] Hanna S/P dialysis catheter insertion Permcath + attempted thrombectomy: 04/2019: MAC sedation at [facility] Family History Father Family history of diabetes mellitus Brother Prostate cancer Denies family history of Ovarian cancer Breast cancer Lung cancer Colorectal cancer Social History Preferred Language: Citizen Of [place] Communication Ability: Effective Visual Impairment: No Limitations [employer]mobile Driver Required: No Beliefs That Will Affect Care: None marital status: Current Living Situation: Family Current Living Situation Comment: grandson current occupational status: retired Feels Safe at Home: Yes Smoking Status: Never smoker Do You Dip or Chew Tobacco: No ; Second Hand Exposure: Yes (parents smoked/ smoked) ; Hx Alcohol Use: No Hx Substance Use: No Childhood Exposure to Second-Hand Smoke: Yes Diet Comment: regular caffeine: Yes (coffee, once in a while) during the past year weight has: remained stable Dental Care, Regularly: Yes Physical Activity Frequency: Does not Exercise Seatbelt Use: always Sunscreen Use: No Physical Exam Physical Exam: Gen.: No acute distress. Alert and oriented. HEENT: Anicteric sclera. Neck: No JVD. No bruits. Normal carotid upstrokes bilaterally. Cardiac: PMI was nonpalpable. No ventricular heave. Regular. Normal S1-S2. No murmurs, rubs, or gallops. Pulmonary: Decreased breath sounds throughout, otherwise clear to auscultation bilaterally without wheezes, rales, or rhonchi. Abdomen: Soft, nontender, nondistended, with normoactive bowel sounds. No bruits noted. Extremities: 2+ radial pulses bilaterally. Right upper extremity AV fistula with palpable thrill and audible bruit. 12+ posterior tibialis pulses bilaterally. 1+ bilateral lower extremity edema. No cyanosis. Psychiatric: Affect appears appropriate. Results & Data ([facility]) Vital Signs (Past 12 Hours) Vital Signs Temp Pulse Pulse Pulse Resp BP Pulse Ox 01/01/20 08:04 90 18 97 01/01/20 08:00 75 01/01/20 07:28 36.7 C 73 21 147/55 H 97 01/01/20 03:56 76 18 98 01/01/20 03:53 148/55 H 01/01/20 03:36 36.9 C 80 18 178/73 H 90 12/31/19 23:18 71 18 166/66 H 93 Laboratory Results Laboratory Results - last 24 hr 12/31/19 12/31/19 12/31/19 17:12 17:12 17:12 WBC 5.18 RBC 3.11 L Hgb 9.5 L Hct 30.0 L MCV 96.5 MCH 30.5 MCHC 31.7 L RDW Std Deviation 51.8 H RDW Coeff of Casandra 15.0 H Plt Count 109 L MPV 9.6 Immature Gran % (Auto) 0.8 Neut % (Auto) 68.3 Lymph % (Auto) 20.1 Charles % (Auto) 8.5 Eos % (Auto) 2.1 Baso % (Auto) 0.2 Immature Gran # (Auto) 0.04 H Neut # (Auto) 3.54 Lymph # (Auto) 1.04 L Charles # (Auto) 0.44 Eos # (Auto) 0.11 Baso # (Auto) 0.01 PT 11.1 INR 1.1 APTT 27.3 PTT Ratio 1.0 Sodium 138 Potassium 3.3 L Chloride 99 Carbon Dioxide 35 H Anion Gap 4.0 BUN 14 Creatinine 3.05 H Est Cr Clr Drug Dosing 19.6 Est GFR ( Amer) 20.6 Est GFR (Non-Af Amer) 17.7 BUN/Creatinine Ratio 4.5 L Glucose 84 POC Glucose Estimat Average Glucose Hemoglobin A1c Calcium 8.7 Phosphorus 2.1 L Magnesium 2.1 Total Bilirubin 0.5 AST 23 ALT 21 Alkaline Phosphatase 51 Troponin I 0.028 Total Protein 7.7 Albumin 3.2 L Globulin 4.5 H Albumin/Globulin Ratio 0.7 L Lipase 100 TSH 0.558 12/31/19 12/31/19 01/01/20 19:47 22:27 05:10 WBC RBC Hgb Hct MCV MCH MCHC RDW Std Deviation RDW Coeff of Casandra Plt Count MPV Immature Gran % (Auto) Neut % (Auto) Lymph % (Auto) Charles % (Auto) Eos % (Auto) Baso % (Auto) Immature Gran # (Auto) Neut # (Auto) Lymph # (Auto) Charles # (Auto) Eos # (Auto) Baso # (Auto) PT INR APTT PTT Ratio Sodium Potassium Chloride Carbon Dioxide Anion Gap BUN Creatinine Est Cr Clr Drug Dosing Est GFR ( Amer) Est GFR (Non-Af Amer) BUN/Creatinine Ratio Glucose POC Glucose 83 155 H Estimat Average Glucose 163 Hemoglobin A1c 7.3 H Calcium Phosphorus Magnesium Total Bilirubin AST ALT Alkaline Phosphatase Troponin I Total Protein Albumin Globulin Albumin/Globulin Ratio Lipase TSH 01/01/20 01/01/20 07:27 11:16 WBC RBC Hgb Hct MCV MCH MCHC RDW Std Deviation RDW Coeff of Casandra Plt Count MPV Immature Gran % (Auto) Neut % (Auto) Lymph % (Auto) Charles % (Auto) Eos % (Auto) Baso % (Auto) Immature Gran # (Auto) Neut # (Auto) Lymph # (Auto) Charles # (Auto) Eos # (Auto) Baso # (Auto) PT INR APTT PTT Ratio Sodium Potassium Chloride Carbon Dioxide Anion Gap BUN Creatinine Est Cr Clr Drug Dosing Est GFR ( Amer) Est GFR (Non-Af Amer) BUN/Creatinine Ratio Glucose POC Glucose 166 H 174 H Estimat Average Glucose Hemoglobin A1c Calcium Phosphorus Magnesium Total Bilirubin AST ALT Alkaline Phosphatase Troponin I Total Protein Albumin Globulin Albumin/Globulin Ratio Lipase TSH Diagnostic Findings Echo 01/01/2020: Normal LV size, wall motion, systolic function. EF 55-60%. Mildly dilated RV with normal systolic function. Sclerotic aortic valve. Mild MR. RVSP 51. Telemetry personally reviewed: Predominantly sinus rhythm. PACs and atrial runs noted. ECGs personally reviewed. ECG 12/31/2019 at 4:31 p.m.: SVT at [address] abnormality. ECG 12/31/2019 at 7:26 p.m.: Sinus rhythm with first-degree AV block and frequent PACs. ECG 01/01/2020 at 6:27 a.m.: Sinus rhythm first-degree AV block. Chest x-ray 12/31/2019 personally reviewed: Small left pleural effusion. Medications Administered Current Inpatient Medications Acetaminophen (Tylenol) 650 mg PO Q4H PRN PRN Reason: Pain or Fever Stop: 01/30/20 22:15 Albuterol (Ventolin 0.083% 2.5mg/3ml) 2.5 mg INH Q4H PRN PRN Reason: shortness of breath or wheezing Stop: 01/30/20 22:15 Last Admin: 01/01/20 08:04 Dose: 2.5 mg Documented by: Aspirin (Ecotrin Ectab) 81 mg PO TuThSa@0900 [facility] Stop: 01/30/20 22:15 Last Admin: 12/31/19 22:39 Dose: 81 mg Documented by: Dextrose (Dextrose 50%) 25 - 50 ml IV UD PRN; Protocol PRN Reason: Hypoglycemia Protocol Stop: 01/30/20 22:15 Diltiazem HCl (Cardizem Cd) 120 mg PO QAM [facility] Stop: 01/31/20 09:59 Docusate Sodium (Colace) 50 mg PO BID [facility] Stop: 01/30/20 22:12 Last Admin: 01/01/20 07:52 Dose: 50 mg Documented by: Folic Acid (Folvite) 1 mg PO QAM [facility] Stop: 01/31/20 08:59 Last Admin: 01/01/20 07:53 Dose: 1 mg Documented by: Glucagon (Glucagen) 1 mg SQ UD PRN; Protocol PRN Reason: Hypoglycemia Protocol Stop: 01/30/20 22:15 Glucose (Dex4 Glucose) 4 - 8 tabs PO UD PRN; Protocol PRN Reason: Hypoglycemia Protocol Stop: 01/30/20 22:15 Glucose (Glucose 40%) 15 - 30 gm PO UD PRN; Protocol PRN Reason: Hypoglycemia Protocol Stop: 01/30/20 22:15 Insulin Aspart (Novolog Flexpen) 0 units SC ACHS [facility] Stop: 01/30/20 22:15 Last Admin: 01/01/20 07:54 Dose: 3 units Documented by: Insulin Glargine (Lantus Solostar Pen) 5 units SC BID [facility] Stop: 01/30/20 22:15 Last Admin: 01/01/20 07:53 Dose: 5 units Documented by: Metoprolol Tartrate (Lopressor) 50 mg PO QAM [facility] Stop: 01/31/20 08:59 Last Admin: 01/01/20 07:52 Dose: 50 mg Documented by: Metoprolol Tartrate (Lopressor) 25 mg PO PM [facility] Stop: 01/30/20 22:12 Last Admin: 12/31/19 22:39 Dose: 25 mg Documented by: Miscellaneous (Carbohydrates For Hypoglycemia) 15 - 30 gm PO UD PRN PRN Reason: Hypoglycemia Protocol Stop: 01/30/20 22:15 Multivitamins/Minerals (Multivitamin W/ Minerals Tab) 1 tab PO QAM [facility] Stop: 01/31/20 08:59 Last Admin: 01/01/20 07:53 Dose: 1 tab Documented by: Ondansetron HCl (Zofran) 4 mg IV Q6H PRN PRN Reason: Nausea Stop: 01/30/20 22:15 Polyethylene Glycol (Miralax Powder Packet) 17 gm PO DAILY PRN PRN Reason: Constipation Stop: 01/30/20 22:15 Pravastatin Sodium (Pravachol) 40 mg PO QPM [facility] Stop: 01/30/20 22:15 Last Admin: 12/31/19 22:39 Dose: 40 mg Documented by: PG Care Time/CCT Total # of Minutes Spent Total Time Spent with Patient: Total time spent is greater than 50% in coordination of care (as documented) at patient's floor/unit and/or counseling patient: Coding Level of Care Code 13453 Initial Inpt Care Lvl 3 Diagnoses Paroxysmal atrial tachycardia I47.1 Hypertension I10 Hypertension type: essential hypertension Shortness of breath R06.02 Non-occlusive coronary artery disease I25.10 Pulmonary hypertension I27.20 (1) Hypertension Hypertension type: essential hypertension Qualified Code(s): I10 - Essential (primary) hypertension
--- NOTE | 2020-01-01 16:33 | Discharge Summary ---
Date of Service January 01, 2020 Admission HPI Per Admitting Provider Isidro Madden is an 84 year old gentleman with a past medical history significant for ESRD (on dialysis T, , ), DMII, CAD with previous [place], TIA, prostate cancer status post radiation and resultant hematuria and hematochezia off and on who is here for new onset atrial fibrillation. Patient had been at dialysis today and was recommended that he check in with his primary care doctor before resuming dialysis. PCP performed an ECG which showed new onset A fib. Patient has been feeling more short of breath for some time, particularly with exertion, this has been worse in last two days. He has also been dealing with bronchitis recently for which his pcp prescribed doxycycline and gave albuterol inhaler. He feels like he is doing better from that standpoint. He also has a cough, denies any fevers, recent sick contacts, or recent travel. He gets dialysis through fistula in right arm finished dialysis today. Patient presented to his PCPs office earlier today, was found to be in irregular regular rhythm, rate in the 130s ECG taken which appeared to show atrial fibrillation with RVR. Patient was advised to present to emergency department. On arrival to emergency department patient was found to be hypertensive, with heart rates in the 120s and 130s. Patient was able to control heart rate with vagal maneuvers and was bolused 250 cc of normal saline. Blood work significant for anemia with hemoglobin 9.5 which is chronic secondary to blood loss from his chronic hematochezia hematuria, and thrombocytopenia which is also chronic. Potassium of 3.3, creatinine 3.05, phosphorus 2.1 mag 2.1, detectable troponin 0.028 but this appears to be about the patient's baseline. At time my evaluation, patient resting comfortably and his heart rate had decreased to about 90 bpm. Patient lives with his grandson at home, he is a his passed by 20 years ago. He is retired, he is a non-smoker nondrinker does not use any drugs recreationally. After discussion of CODE STATUS patient would like to be DNR/DNI Principal Diagnosis Atrial tachycardia Discharge Exam Constitutional WD/WN, vitals as above Eyes EOM intact bilaterally; no conjunctival abnormality ENMT external ear and nose normal, oropharynx normal Neck trachea midline, no thyromegaly normal visual inspection Respiratory normal respiratory effort, lungs clear to auscultation no respiratory distress Cardiovascular RRR, no murmur, no edema Gastrointestinal (Abdomen) Inspection/Auscultation: abdomen normal to inspection; abdomen not distended Musculoskeletal no cyanosis or clubbing, extremities motor strength 5/5 Skin no rashes, warm and dry Neurologic moves all extremities and awake Psychiatric Orientation: alert, oriented to person and cooperative Discharge Data Allergies Allergy/AdvReac Type Severity Reaction Status Date / Time clarithromycin AdvReac Intermediate confusion Verified 12/31/19 14:43 fish oil AdvReac Intermediate hx of Verified 12/31/19 14:43 hemorrhage in past Sulfa (Sulfonamide AdvReac Intermediate severe Verified 12/31/19 14:43 Antibiotics) agitation/delirium Consultations 12/31/19 19:45 ED Decision to Admit Stat 12/31/19 22:16 Consult Cardiology Routine Hospital Course (1) Pulmonary hypertension: 1. Paroxysmal atrial tachycardia: Initial ECG demonstrated what appears to be SVT versus atrial tachycardia. He was having atrial runs on telemetry but currently asymptomatic. Initially there was concern that he was having episodes of atrial fibrillation. Cardiology reviewed the EKGs and felt this was not the case (or at least not seen on the captured EKGs). In any event, he would be treated the same and is not a candidate for anticoagulation. - Replaced amlodipine with diltiazem 120 mg once daily. - Continued metoprolol at current dose. - By discharge, his HR was in the 70s. His BP was 140/50 which was felt to be appropriate for his age and comorbitidies. 2. Shortness of breath: He admits shortness of breath when he was noticing tachyarrhythmia. He now feels back to baseline. 3. Pulmonary hypertension: This can be worked up as an outpatient if appropriate. 4. CAD: Nonobstructive. Had some chest tightness during tachyarrhythmia but otherwise has denied any other chest pain or angina. Continue outpatient regimen. Total Time Total Time Spent Total Time Spent (In Minutes): 35 Discharge Plan Discharge Items Patient Disposition: Home - Self-Care Reason For Visit: NEW ONSET ATRIAL FIBRILLATION Discharge Diagnosis: Atrial tachycardia Activity: Resume your previous activity Non-emergency contact: Primary Care Provider and Pacu Nurse Call non-emergency contact if: your symptoms worsen and your temperature is above 101 Follow-up/Referrals: Noel Raymundo MD [Primary Care Provider] - 01/11/20 8:45 am Nakul Glover MD [Physician] - 01/14/20 12:45 pm (Please see Dr. Glover to follow up with your heart rate.) Diet: Dialysis Renal and Heart Healthy Addtl Attending Provider Instructions: You were admitted to the hospital with a fast heart rate. Initially we were worried that you had a rhythm called atrial fibrillation, but it does not seem that way. We think this is a rhythm called atrial tachycardia that is fortunately more harmless than atrial fibrillation. We have started a new medication called diltiazem to help with the heart rate. This should keep your heart rate at an acceptable rate. In turn, we have stopped your amlodipine to prevent low blood pressure. Please follow up with Dr. Glover in the office, or by phone in 1-2 weeks to see how you're doing. Pending Studies at Discharge: No Stand-Alone Forms: My [facility] [employer], Smoking Cessation Medications and DC Order Prescriptions: New diltiazem HCl 120 mg Capsule,Extended Release 24hr 120 mg PO QAM Qty: 30 RF: 0 Continued folic acid 1 mg tablet 1 mg PO QAM Qty: 90 RF: 3 (DME) lancets [FreeStyle Lancets] 28 gauge misc See Rx Instructions .ROUTE .MEDSUPPLY Qty: 200 RF: 3 aspirin 81 mg tablet,delayed release (DR/EC) 81 mg PO 3XWK Qty: 270 RF: 3 (DME) pen needle, diabetic [BD Ultra-Fine Tiffanie Pen Needle] 32 gauge x 5/32" needle See Rx Instructions .ROUTE .MEDSUPPLY Qty: 200 RF: 3 metoprolol tartrate 25 mg tablet See Rx Instructions PO QAM Qty: 270 RF: 3 pravastatin [Pravachol] 40 mg tablet 40 mg PO QPM Qty: 90 RF: 3 albuterol sulfate 2.5 mg /3 mL (0.083 %) solution for nebulization 2.5 mg INH .COMPLEX PRN (Reason: shortness of breath or wheezing) Qty: 75 RF: 3 calcium acetate(phosphat bind) 667 mg capsule 1,334 mg PO TIDM RF: 0 ProRenal 8 mg iron-800 mcg-1,000 unit tablet 1 tab PO QAM RF: 0 (DME) Altera Nebulizer Misc See Rx Instructions .ROUTE .MEDSUPPLY Qty: 1 RF: 0 Novolog Mix 70-30 U-100 Insuln 100 unit/mL (70-30) solution See Rx Instructions subcut QAM Qty: 9 RF: 3 Colace Clear 50 mg Capsule 50 mg PO BID RF: 0 Discontinued amlodipine 5 mg tablet 5 mg PO QAM Qty: 90 RF: 3 Discharge Orders: Discharge Order (Routine); Ordered 01/01/20 Ordered By: Cyril Wells Admission Data Admit Date/Time: 12/31/19 21:32 Attending Provider: Cyril Wells Admit Provider: Dann Vázquez Primary Care Provider: Noel Raymundo Other Providers: Phani Rodriguez ; Cyril Wells Other Interventions: Discharge Summary Assessment (RN) Last Done: 01/01/20 13:35 Coding Level of Care Code D/C Day Management >30 mins Diagnoses Pulmonary hypertension I27.20
--- NOTE | 2020-01-02 22:00 | Billing Data ---
Date of Service January 02, 2020 Coding Level of Care Code 23526 Initial Inpt Care Lvl 3
== END 2020-01-01 20:38 | disposition home or self-care (01) | DRG 308 ==
LOC: ED 16:26 → SUATTDRO 21:32 → 2E 21:32

== ENCOUNTER 2020-11-17 10:30 | Inpatient (IN) ==
--- NOTE | 2020-11-17 10:47 | Emergency Department Note ---
Impression & Plan COVID-19, End-stage renal disease on hemodialysis, Anemia, Acute dyspnea ED Provider Note NAME: MARY ANN DENNIS AGE: 85 SEX: M : 1935 ARRIVES VIA: Walk-In INFORMANT: Patient, ED PROVIDER(S): Alfred Williamson MD Chief Complaint: Shortness of breath, low hemoglobin, outpatient referral HPI: Patient does present with some shortness of breath and nonproductive cough that has been ongoing for approximately 1 week. The patient does have his grandson living with him who is to return to work tomorrow but was diagnosed with coronavirus. Patient states that he does have a history of bronchitis. The patient denies smoking. The patient does have a history of ESRD Saturday last completed on Saturday. The patient was seen at the dialysis center and referred here for further evaluation and treatment as the patient has had the shortness of breath possible Covid as well as lower hemoglobin. Per review the patient had a hemoglobin greater than 9 several months ago but today is reported to be less than 8. The patient believes that the blood work was drawn several days ago. Patient denies any change in his lower extremity edema. The patient does not make much urine. The patient's appetite is been appropriate. The patient has loss of taste or smell. Patient denies blood thinner use with exception of baby aspirin. Patient does have a history of GI bleed and A. fib but is not anticoagulated due to prior history of GI bleeding. 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 Patient denies any vomiting bloody stools or tarry stools. ROS: See HPI for pertinent positives and negatives. A total of 10 systems were reviewed and otherwise negative. Past medical history: See below Surgical history: See below Social history: See below Physical Exam: GENERAL: Wearing a mask. NAD, non-toxic. EYE EXAM: Normal conjunctiva. PERRL, no anisocoria and EOM's grossly intact w/o pain. NECK: Supple, no nuchal rigidity, no adenopathy, non-tender. No signs of meningismus. LUNGS: Bibasilar crackles noted. Normal chest wall mechanics. HEART: NSR, no MRG. ABDOMEN: Abdomen soft, non-tender, normo-active bowel sounds, no masses, no rebound or guarding. BACK: No CVA TTP. SKIN: No rashes and no bruising. UPPER EXTREMITIES: Upper extremities are grossly normal. LOWER EXTREMITIES: Grossly normal, asymmetric bilateral lower extremity edema. Mild redness noted likely consistent with chronic lymphedema. No obvious fluctuance or drainage. No crepitus and compartments are soft. NEURO EXAM: A&O x3, cranial nerves II-XII grossly intact, normal speech, moves all 4 extremities on command w/o issue. Differential diagnoses: Reactive airway disease, pneumonia, pneumothorax, COPD, CHF, infections, cardiac ischemia, pulmonary embolism, musculoskeletal, gastrointestinal, as well as other pathologies. Course: Patient was seen and evaluated the bedside. Full history physical exam was performed. EKG: Indication: Shortness of breath A. fib, rate of 91, normal QRS, normal axis, Q-wave in 3, no ST changes. Imaging Studies: Radiology results as stated below per my review in the radiologist's interpret ation: XR chest 1V portable HISTORY: 85 years-old Male Dyspnea acute shortness of breath COMPARISON: Chest radiograph 12/31/2019 TECHNIQUE: Portable AP view of the chest FINDINGS: Cardiac silhouette is enlarged. Pulmonary vascular congestion with mild interstitial coarsening. Mild linear subsegmental left lung base opacities. No pneumothorax, large pleural effusion or lobar airspace consolidation. Vascular stent of the left upper extremity. Degenerative changes of the shoulders and spine. IMPRESSION: 1. Cardiomegaly and pulmonary vascular congestion with mild interstitial coarsening suggestive of mild pulmonary edema versus interstitial pneumonitis. 2. Linear linear scarring/atelectasis of the left lung base. ACT 112: Negative or not required by law. The above report was generated using voice recognition software. It may contain grammatical, syntax or spelling errors. Electronically signed by: Edgard Vazquez M.D. 11/17/2020 11:33 AM Dictated: 11/17/20 1131 Transcribed: 11/17/20 1131 Cardiac monitoring: An order was placed for continuous cardiac monitoring. The monitor shows a rate of 91 with sinus rhythm. MDM: Patient was seen due to concern for shortness of breath. Blood work was obtained along with an EKG troponin chest x-ray BNP. Type and screen also ordered. The patient was consented for blood in the event that he required it. Patient does have leukopenia and associated lymphopenia. Patient's hemoglobin is 7.6 with lower platelet count 120. No active bleeding at this time. The patient does have elevated creatinine with normal potassium. Troponin is not detectable BNP is elevated. Given that I believe the patient may benefit from blood products and has yet to receive hemodialysis I did speak with Dr. Ulloa with nephrology. The patient will be dialyzed today. The patient was ordered blood product. He received this. The patient is positive for Covid. I did speak the on-call hospitalist and the patient was admitted to the medicine service by Dr. Coronel. Critical Care: I have personally spent 47 minutes of critical care time in direct management of this patient. This includes bedside care, interpretation of diagnostic studies, and testing, discussion with consultants, patient, and family members, and other require inpatient management activities. This 47 minutes is in excess of all separately billable procedures. 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 Diabetes mellitus type 2, uncontrolled IDDM Diabetic neuropathy Dyslipidemia Emphysema lung suggested per CXR End-stage renal disease on hemodialysis DIALYSIS SATURDAY/SATURDAY/SATURDAY AT [facility] VIA PERMACATH GAVE (gastric antral vascular ectasia) Gout Hearing deficit LEFT History of blood transfusion 2/2 GIB felt r/t radiation therapy s/p total of 6 units PRBC's since 10/2018 Hypertension Non-occlusive coronary artery disease Nontoxic multinodular goiter Osteoarthritis Prostate cancer S/P SURGERY, XRT Pulmonary nodules UNDER SURVEILLANCE Thrombocytopenia Transient ischemic attack (TIA) 2014--no deficits, no neurologist Type 2 diabetes mellitus Surgical History Amputation of left little finger H/O prostatectomy History of arthroscopy LEFT KNEE History of bowel resection BOWEL LACERATION DURING ATTEMPTING POLYPECTOMY History of cardiac cath X3 = NO STENTS History of cataract surgery RIGHT/LEFT History of colonoscopy History of esophagogastroduodenoscopy (EGD) + CAUTERIZATION (2/2 GIB) History of surgery fistulogram with Dr. Hanna through Right AV fistula 08/17/19 History of tooth extraction S/P arteriovenous (AV) fistula creation LEFT S/P arteriovenous (AV) fistula creation right 05/[address] Hanna S/P dialysis catheter insertion Permcath + attempted thrombectomy: 04/2019: MAC sedation at [facility] Family History Father Family history of diabetes mellitus Hypertension Brother Prostate cancer Mother Heart disease Hypertension Denies family history of Ovarian cancer Breast cancer Lung cancer Colorectal cancer Social History Smoking Status: Never smoker Second Hand Exposure: Yes (parents smoked/ smoked); Hx Alcohol Use: No Hx Substance Use: No Preferred Language: Moroccan Communication Ability: Effective Visual Impairment: No Limitations Hearing Ability: Use of Hearing Aid Advertising Director Required: No Beliefs That Will Affect Care: None marital status: Current Living Situation: Family Current Living Situation Comment: grandson current occupational status: retired How many Children do You have: 1 Feels Safe at Home: Yes Childhood Exposure to Second-Hand Smoke: Yes Diet Comment: regular caffeine: Yes (coffee, once in a while) during the past year weight has: remained stable Dental Care, Regularly: Yes Physical Activity Frequency: Does not Exercise Seatbelt Use: always Sunscreen Use: No Assistive Devices: None Allergies Allergies Allergy/AdvReac Type Severity Reaction Status Date / Time clarithromycin AdvReac Intermediate confusion Verified 11/17/20 11:34 fish oil AdvReac Intermediate hx of Verified 11/17/20 11:34 hemorrhage in past Sulfa (Sulfonamide AdvReac Intermediate severe Verified 11/17/20 11:34 Antibiotics) agitation/delirium Home Meds Home Medications Medication Instructions Recorded Confirmed calcium acetate(phosphat bind) 667 2,001 mg PO TIDM cap 03/02/19 11/17/20 mg capsule vit B complx, C-iron 8 mg-folic 1 tab PO QAM tab 03/05/19 11/17/20 acid 800 mcg-D3 1,000 unit-zinc tablet Colace Clear 50 mg PO BID 04/17/19 11/17/20 insulin asp prt-insulin aspart 0 unit SUBCUT BID 11/17/20 11/17/20 [Novolog Mix 70-30 U-100 Insuln] metoprolol tartrate 25 mg PO HS 11/17/20 11/17/20 metoprolol tartrate 50 mg PO QAM 11/17/20 11/17/20 Previous Rx's Medication Instructions Recorded aspirin 81 mg tablet,delayed 81 mg PO 3XWK #270 tab 10/21/19 release BD Ultra-Fine Tiffanie Pen Needle 32 #200 ea NS 11/03/19 gauge x 5/32" pravastatin 40 mg tablet 40 mg PO QPM #90 tab 12/16/19 nebulizers #1 ea 12/23/19 diltiazem HCl 120 mg 120 mg PO QAM #90 cap 01/04/20 capsule,extended release 24 hr blood sugar diagnostic #300 ea 06/03/20 folic acid 1 mg tablet 1 mg PO QAM #90 tab 07/11/20 FreeStyle Lancets 28 gauge #200 ea NS 10/13/20 albuterol sulfate 90 mcg/actuation 1 puff INH QID #18 gm 10/19/20 aerosol inhaler Results & Data (ED) Vital Signs Vital Signs - 24 hr 11/17/20 10:36 11/17/20 11:39 11/17/20 11:43 Temperature 37.0 C Temperature Source Temporal Artery Scan Pulse Rate 111 H 96 H 94 H Pulse Rate from SpO2 Sensor 97 H 96 H Pulse Rhythm Pulse Strength Respiratory Rate 24 18 17 Blood Pressure 168/60 H 168/64 H Blood Pressure Mean 96 98 Blood Pressure Position Pulse Oximetry 96 92 98 Oxygen Delivery Method Room Air Sepsis Recent Fever Within 48 Hours No Sepsis New/Unexplained Change in Mental Status No Sepsis Action Taken by Nursing No Action Required 11/17/20 11:57 11/17/20 12:00 11/17/20 12:01 Temperature Temperature Source Pulse Rate 98 H 93 H Pulse Rate from SpO2 Sensor 96 H 93 H Pulse Rhythm Pulse Strength Respiratory Rate 13 16 Blood Pressure 170/61 H Blood Pressure Mean 97 Blood Pressure Position Pulse Oximetry 98 89 L 92 Oxygen Delivery Method Room Air Sepsis Recent Fever Within 48 Hours Sepsis New/Unexplained Change in Mental Status Sepsis Action Taken by Nursing 11/17/20 12:20 11/17/20 12:30 11/17/20 12:40 Temperature Temperature Source Pulse Rate 99 H 89 93 H Pulse Rate from SpO2 Sensor 99 H 89 Pulse Rhythm Pulse Strength Respiratory Rate 18 16 17 Blood Pressure 182/70 H Blood Pressure Mean 107 Blood Pressure Position Pulse Oximetry 96 94 Oxygen Delivery Method Sepsis Recent Fever Within 48 Hours Sepsis New/Unexplained Change in Mental Status Sepsis Action Taken by Nursing 11/17/20 12:43 11/17/20 12:59 11/17/20 13:00 Temperature 37.0 C 37.1 C 36.9 C Temperature Source Oral Oral Oral Pulse Rate 90 108 H 105 H Pulse Rate from SpO2 Sensor 108 H 106 H Pulse Rhythm Regular Regular Pulse Strength Normal Normal Respiratory Rate 20 22 19 Blood Pressure 182/70 H 154/72 H 162/77 H Blood Pressure Mean 107 99 105 Blood Pressure Position Sitting Pulse Oximetry 97 94 96 Oxygen Delivery Method Sepsis Recent Fever Within 48 Hours Sepsis New/Unexplained Change in Mental Status Sepsis Action Taken by Nursing 11/17/20 13:01 11/17/20 13:15 11/17/20 13:20 Temperature 36.8 C Temperature Source Oral Pulse Rate 108 H 91 H 90 Pulse Rate from SpO2 Sensor 108 H 91 H 90 Pulse Rhythm Regular Pulse Strength Normal Respiratory Rate 25 H 22 15 Blood Pressure 163/72 H Blood Pressure Mean 102 Blood Pressure Position Sitting Pulse Oximetry 96 95 96 Oxygen Delivery Method Sepsis Recent Fever Within 48 Hours Sepsis New/Unexplained Change in Mental Status Sepsis Action Taken by Nursing 11/17/20 13:30 11/17/20 13:40 11/17/20 13:45 Temperature 36.9 C Temperature Source Oral Pulse Rate 91 H 91 H 92 H Pulse Rate from SpO2 Sensor 91 H 91 H 91 H Pulse Rhythm Pulse Strength Respiratory Rate 15 20 15 Blood Pressure 152/67 H 161/71 H Blood Pressure Mean 95 101 Blood Pressure Position Sitting Pulse Oximetry 94 96 94 Oxygen Delivery Method Sepsis Recent Fever Within 48 Hours Sepsis New/Unexplained Change in Mental Status Sepsis Action Taken by Nursing 11/17/20 14:00 11/17/20 14:01 11/17/20 14:15 Temperature Temperature Source Pulse Rate 87 88 86 Pulse Rate from SpO2 Sensor 87 86 86 Pulse Rhythm Pulse Strength Respiratory Rate 22 14 16 Blood Pressure 148/75 H 134/62 Blood Pressure Mean 99 86 Blood Pressure Position Pulse Oximetry 96 95 91 Oxygen Delivery Method Sepsis Recent Fever Within 48 Hours Sepsis New/Unexplained Change in Mental Status Sepsis Action Taken by Nursing 11/17/20 14:53 Temperature Temperature Source Pulse Rate 91 H Pulse Rate from SpO2 Sensor Pulse Rhythm Pulse Strength Respiratory Rate 18 Blood Pressure 163/72 H Blood Pressure Mean Blood Pressure Position Pulse Oximetry 95 Oxygen Delivery Method Room Air Sepsis Recent Fever Within 48 Hours Sepsis New/Unexplained Change in Mental Status Sepsis Action Taken by [facility] Medications Current Medication List: was personally reviewed by me Laboratory Data Attestation: I reviewed the patient's lab results. Result diagrams: 11/17/20 11:14 11/17/20 11:14 Lab Results 11/17/20 11/17/20 11/17/20 Range/Units 11:14 11:14 11:14 WBC 3.91 L (4.8-10.8) K/uL RBC 2.39 L (4.7-6.1) M/uL Hgb 7.6 L (14.0-18.0) g/dL Hct 24.7 L (42-52) % MCV 103.3 H (80-100) fL MCH 31.8 (25-34) pg MCHC 30.8 L (32-36) g/dL RDW Std Deviation 65.9 H (36.4-46.3) fL RDW Coeff of Casandra 17.5 H (11.5-14.5) % Plt Count 120 L (130-400) K/uL MPV 9.3 (7.4-10.4) fL Immature Gran % (Auto) 1.0 % Neut % (Auto) 67.0 % Lymph % (Auto) 21.0 % [place] % (Auto) 9.7 % Eos % (Auto) 1.0 % Baso % (Auto) 0.3 % Reticulocyte % (Auto) (0.5-2.0) % Neut # (Auto) 2.62 (1.4-6.5) K/uL Lymph # (Auto) 0.82 L (1.2-3.4) K/uL [place] # (Auto) 0.38 (0.11-0.59) K/uL Eos # (Auto) 0.04 (0-0.5) K/uL Baso # (Auto) 0.01 (0-0.2) K/uL Reticulocyte # (0.02-0.10) 10^6/uL Immature Gran # (Auto) 0.04 H (0.00-0.02) K/uL PT (9.0-12.0) Seconds INR (0.9-1.1) APTT (21.0-31.0) Seconds PTT Ratio D-Dimer (0-500) ug/L FEU Sodium 133 L (136-145) mmol/L Potassium 4.4 (3.5-5.1) mmol/L Chloride 93 L (98-107) mmol/L Carbon Dioxide 31 (21-32) mmol/L Anion Gap 9.0 (3-11) BUN 49 H (7-18) mg/dl Creatinine 8.04 H* (0.6-1.4) mg/dl Est Cr Clr Drug Dosing 7.3 ml/min Est GFR ( Amer) 6.3 Est GFR (Non-Af Amer) 5.5 BUN/Creatinine Ratio 6.1 L (10-20) Glucose 129 H (70-99) mg/dl Calcium 8.4 L (8.5-10.1) mg/dl Magnesium 2.4 (1.8-2.4) mg/dl Iron (35-175) mcg/dl Transferrin (200-360) mg/dl Transferrin % Sat (20-50) % Ferritin (8-388) ng/ml Total Bilirubin 0.4 (0.2-1) mg/dl AST 8 L (15-37) U/L ALT 16 (12-78) U/L Alkaline Phosphatase 63 (45-117) U/L Lactate Dehydrogenase (87-241) U/L Total Creatine Kinase (39-308) U/L Troponin I < 0.015 (0-0.045) ng/ml C-Reactive Protein (0-0.29) mg/dl NT-Pro-B Natriuret Pep 2634 H (0-1800) pg/ml Total Protein 7.3 (6.4-8.2) gm/dl Albumin 3.1 L (3.4-5.0) gm/dl Globulin 4.2 H (2.5-4.0) gm/dl Albumin/Globulin Ratio 0.7 L (0.9-2) Vitamin B12 (193-986) pg/ml Folate (>5.38) ng/ml Procalcitonin (0-0.5) ng/ml COVID-19 Eval Order Hep Bs Antigen (Neg) Hep Bs Antibody Hep Bs Antibody, Quant (>or=10mIU/mL Immune) mIU/mL Influ A Molecular Assay (Negative) Influ B Molecular Assay (Negative) SARS-CoV-2, RNA, NAAT (NEGATIVE) Blood Type A Negative Antibody Screen NEGATIVE Crossmatch See Detail 11/17/20 11/17/20 11/17/20 Range/Units 11:14 11:54 11:54 WBC (4.8-10.8) K/uL RBC (4.7-6.1) M/uL Hgb (14.0-18.0) g/dL Hct (42-52) % MCV (80-100) fL MCH (25-34) pg MCHC (32-36) g/dL RDW Std Deviation (36.4-46.3) fL RDW Coeff of Casandra (11.5-14.5) % Plt Count (130-400) K/uL MPV (7.4-10.4) fL Immature Gran % (Auto) % Neut % (Auto) % Lymph % (Auto) % [place] % (Auto) % Eos % (Auto) % Baso % (Auto) % Reticulocyte % (Auto) (0.5-2.0) % Neut # (Auto) (1.4-6.5) K/uL Lymph # (Auto) (1.2-3.4) K/uL [place] # (Auto) (0.11-0.59) K/uL Eos # (Auto) (0-0.5) K/uL Baso # (Auto) (0-0.2) K/uL Reticulocyte # (0.02-0.10) 10^6/uL Immature Gran # (Auto) (0.00-0.02) K/uL PT 10.0 (9.0-12.0) Seconds INR 1.0 (0.9-1.1) APTT 25.6 (21.0-31.0) Seconds PTT Ratio 1.0 D-Dimer (0-500) ug/L FEU Sodium (136-145) mmol/L Potassium (3.5-5.1) mmol/L Chloride (98-107) mmol/L Carbon Dioxide (21-32) mmol/L Anion Gap (3-11) BUN (7-18) mg/dl Creatinine (0.6-1.4) mg/dl Est Cr Clr Drug Dosing ml/min Est GFR ( Amer) Est GFR (Non-Af Amer) BUN/Creatinine Ratio (10-20) Glucose (70-99) mg/dl Calcium (8.5-10.1) mg/dl Magnesium (1.8-2.4) mg/dl Iron (35-175) mcg/dl Transferrin (200-360) mg/dl Transferrin % Sat (20-50) % Ferritin (8-388) ng/ml Total Bilirubin (0.2-1) mg/dl AST (15-37) U/L ALT (12-78) U/L Alkaline Phosphatase (45-117) U/L Lactate Dehydrogenase (87-241) U/L Total Creatine Kinase (39-308) U/L Troponin I (0-0.045) ng/ml C-Reactive Protein (0-0.29) mg/dl NT-Pro-B Natriuret Pep (0-1800) pg/ml Total Protein (6.4-8.2) gm/dl Albumin (3.4-5.0) gm/dl Globulin (2.5-4.0) gm/dl Albumin/Globulin Ratio (0.9-2) Vitamin B12 (193-986) pg/ml Folate (>5.38) ng/ml Procalcitonin (0-0.5) ng/ml COVID-19 Eval [facility] Antigen (Neg) Hep Bs Antibody Hep Bs Antibody, Quant (>or=10mIU/mL Immune) mIU/mL Influ A Molecular Assay (Negative) Influ B Molecular Assay (Negative) SARS-CoV-2, RNA, NAAT POSITIVE A* (NEGATIVE) Blood Type Antibody Screen Crossmatch 11/17/20 11/17/20 11/17/20 Range/Units 12:36 12:36 12:36 WBC (4.8-10.8) K/uL RBC (4.7-6.1) M/uL Hgb (14.0-18.0) g/dL Hct (42-52) % MCV (80-100) fL MCH (25-34) pg MCHC (32-36) g/dL RDW Std Deviation (36.4-46.3) fL RDW Coeff of Casandra (11.5-14.5) % Plt Count (130-400) K/uL MPV (7.4-10.4) fL Immature Gran % (Auto) % Neut % (Auto) % Lymph % (Auto) % [place] % (Auto) % Eos % (Auto) % Baso % (Auto) % Reticulocyte % (Auto) (0.5-2.0) % Neut # (Auto) (1.4-6.5) K/uL Lymph # (Auto) (1.2-3.4) K/uL [place] # (Auto) (0.11-0.59) K/uL Eos # (Auto) (0-0.5) K/uL Baso # (Auto) (0-0.2) K/uL Reticulocyte # (0.02-0.10) 10^6/uL Immature Gran # (Auto) (0.00-0.02) K/uL PT (9.0-12.0) Seconds INR (0.9-1.1) APTT (21.0-31.0) Seconds PTT Ratio D-Dimer 1080 H* (0-500) ug/L FEU Sodium (136-145) mmol/L Potassium (3.5-5.1) mmol/L Chloride (98-107) mmol/L Carbon Dioxide (21-32) mmol/L Anion Gap (3-11) BUN (7-18) mg/dl Creatinine (0.6-1.4) mg/dl Est Cr Clr Drug Dosing ml/min Est GFR ( Amer) Est GFR (Non-Af Amer) BUN/Creatinine Ratio (10-20) Glucose (70-99) mg/dl Calcium (8.5-10.1) mg/dl Magnesium (1.8-2.4) mg/dl Iron 23 L (35-175) mcg/dl Transferrin 182 L (200-360) mg/dl Transferrin % Sat 9 L (20-50) % Ferritin 437.8 H (8-388) ng/ml Total Bilirubin (0.2-1) mg/dl AST (15-37) U/L ALT (12-78) U/L Alkaline Phosphatase (45-117) U/L Lactate Dehydrogenase 161 (87-241) U/L Total Creatine Kinase 123 (39-308) U/L Troponin I (0-0.045) ng/ml C-Reactive Protein 2.86 H (0-0.29) mg/dl NT-Pro-B Natriuret Pep (0-1800) pg/ml Total Protein (6.4-8.2) gm/dl Albumin (3.4-5.0) gm/dl Globulin (2.5-4.0) gm/dl Albumin/Globulin Ratio (0.9-2) Vitamin B12 (193-986) pg/ml Folate (>5.38) ng/ml Procalcitonin (0-0.5) ng/ml COVID-19 Eval Order Hep Bs Antigen (Neg) Hep Bs Antibody Hep Bs Antibody, Quant (>or=10mIU/mL Immune) mIU/mL Influ A Molecular Assay (Negative) Influ B Molecular Assay (Negative) SARS-CoV-2, RNA, NAAT (NEGATIVE) Blood Type Antibody Screen Crossmatch 11/17/20 11/17/20 11/17/20 Range/Units 12:36 12:36 12:36 WBC (4.8-10.8) K/uL RBC (4.7-6.1) M/uL Hgb (14.0-18.0) g/dL Hct (42-52) % MCV (80-100) fL MCH (25-34) pg MCHC (32-36) g/dL RDW Std Deviation (36.4-46.3) fL RDW Coeff of Casandra (11.5-14.5) % Plt Count (130-400) K/uL MPV (7.4-10.4) fL Immature Gran % (Auto) % Neut % (Auto) % Lymph % (Auto) % [place] % (Auto) % Eos % (Auto) % Baso % (Auto) % Reticulocyte % (Auto) 2.5 H (0.5-2.0) % Neut # (Auto) (1.4-6.5) K/uL Lymph # (Auto) (1.2-3.4) K/uL [place] # (Auto) (0.11-0.59) K/uL Eos # (Auto) (0-0.5) K/uL Baso # (Auto) (0-0.2) K/uL Reticulocyte # 0.06 (0.02-0.10) 10^6/uL Immature Gran # (Auto) (0.00-0.02) K/uL PT (9.0-12.0) Seconds INR (0.9-1.1) APTT (21.0-31.0) Seconds PTT Ratio D-Dimer (0-500) ug/L FEU Sodium (136-145) mmol/L Potassium (3.5-5.1) mmol/L Chloride (98-107) mmol/L Carbon Dioxide (21-32) mmol/L Anion Gap (3-11) BUN (7-18) mg/dl Creatinine (0.6-1.4) mg/dl Est Cr Clr Drug Dosing ml/min Est GFR ( Amer) Est GFR (Non-Af Amer) BUN/Creatinine Ratio (10-20) Glucose (70-99) mg/dl Calcium (8.5-10.1) mg/dl Magnesium (1.8-2.4) mg/dl Iron (35-175) mcg/dl Transferrin (200-360) mg/dl Transferrin % Sat (20-50) % Ferritin (8-388) ng/ml Total Bilirubin (0.2-1) mg/dl AST (15-37) U/L ALT (12-78) U/L Alkaline Phosphatase (45-117) U/L Lactate Dehydrogenase (87-241) U/L Total Creatine Kinase (39-308) U/L Troponin I (0-0.045) ng/ml C-Reactive Protein (0-0.29) mg/dl NT-Pro-B Natriuret Pep (0-1800) pg/ml Total Protein (6.4-8.2) gm/dl Albumin (3.4-5.0) gm/dl Globulin (2.5-4.0) gm/dl Albumin/Globulin Ratio (0.9-2) Vitamin B12 412 (193-986) pg/ml Folate > 20.00 (>5.38) ng/ml Procalcitonin 0.59 H (0-0.5) ng/ml COVID-19 Eval Order Hep Bs Antigen (Neg) Hep Bs Antibody Hep Bs Antibody, Quant (>or=10mIU/mL Immune) mIU/mL Influ A Molecular Assay (Negative) Influ B Molecular Assay (Negative) SARS-CoV-2, RNA, NAAT (NEGATIVE) Blood Type Antibody Screen Crossmatch 11/17/20 11/17/20 Range/Units 12:36 12:50 WBC (4.8-10.8) K/uL RBC (4.7-6.1) M/uL Hgb (14.0-18.0) g/dL Hct (42-52) % MCV (80-100) fL MCH (25-34) pg MCHC (32-36) g/dL RDW Std Deviation (36.4-46.3) fL RDW Coeff of Casandra (11.5-14.5) % Plt Count (130-400) K/uL MPV (7.4-10.4) fL Immature Gran % (Auto) % Neut % (Auto) % Lymph % (Auto) % [place] % (Auto) % Eos % (Auto) % Baso % (Auto) % Reticulocyte % (Auto) (0.5-2.0) % Neut # (Auto) (1.4-6.5) K/uL Lymph # (Auto) (1.2-3.4) K/uL [place] # (Auto) (0.11-0.59) K/uL Eos # (Auto) (0-0.5) K/uL Baso # (Auto) (0-0.2) K/uL Reticulocyte # (0.02-0.10) 10^6/uL Immature Gran # (Auto) (0.00-0.02) K/uL PT (9.0-12.0) Seconds INR (0.9-1.1) APTT (21.0-31.0) Seconds PTT Ratio D-Dimer (0-500) ug/L FEU Sodium (136-145) mmol/L Potassium (3.5-5.1) mmol/L Chloride (98-107) mmol/L Carbon Dioxide (21-32) mmol/L Anion Gap (3-11) BUN (7-18) mg/dl Creatinine (0.6-1.4) mg/dl Est Cr Clr Drug Dosing ml/min Est GFR ( Amer) Est GFR (Non-Af Amer) BUN/Creatinine Ratio (10-20) Glucose (70-99) mg/dl Calcium (8.5-10.1) mg/dl Magnesium (1.8-2.4) mg/dl Iron (35-175) mcg/dl Transferrin (200-360) mg/dl Transferrin % Sat (20-50) % Ferritin (8-388) ng/ml Total Bilirubin (0.2-1) mg/dl AST (15-37) U/L ALT (12-78) U/L Alkaline Phosphatase (45-117) U/L Lactate Dehydrogenase (87-241) U/L Total Creatine Kinase (39-308) U/L Troponin I (0-0.045) ng/ml C-Reactive Protein (0-0.29) mg/dl NT-Pro-B Natriuret Pep (0-1800) pg/ml Total Protein (6.4-8.2) gm/dl Albumin (3.4-5.0) gm/dl Globulin (2.5-4.0) gm/dl Albumin/Globulin Ratio (0.9-2) Vitamin B12 (193-986) pg/ml Folate (>5.38) ng/ml Procalcitonin (0-0.5) ng/ml COVID-19 Eval Order Hep Bs Antigen Neg (Neg) Hep Bs Antibody Non-Immune Hep Bs Antibody, Quant < 3.10 L (>or=10mIU/mL Immune) mIU/mL Influ A Molecular Assay Negative (Negative) Influ B Molecular Assay Negative (Negative) SARS-CoV-2, RNA, NAAT (NEGATIVE) Blood Type Antibody Screen Crossmatch Discharge Plan Visit Data Chief Complaint: Abnormal Labs/Diagnostic Testing Stated Complaint: ABNORMAL LABS, SOB ED Provider: Alfred Williamson Discharge Problem: COVID-19, End-stage renal disease on hemodialysis, Anemia, Acute dyspnea Discharge Instructions Interventions: ED Discharge Assessment Last Done: 11/17/20 14:53 Forms Stand Alone Forms: My [facility] Prescriptions Prescriptions: No Action aspirin 81 mg tablet,delayed release (DR/EC) 81 mg PO 3XWK Qty: 270 RF: 3 (DME) pen needle, diabetic [BD Ultra-Fine Tiffanie Pen Needle] 32 gauge x 5/32" needle See Rx Instructions .ROUTE .MEDSUPPLY Qty: 200 RF: 3 pravastatin [Pravachol] 40 mg tablet 40 mg PO QPM Qty: 90 RF: 3 (DME) blood sugar diagnostic [OneTouch Ultra Blue Test Strip] Strip See Rx Instructions .ROUTE .MEDSUPPLY Qty: 300 RF: 3 folic acid 1 mg tablet 1 mg PO QAM Qty: 90 RF: 3 (DME) lancets [FreeStyle Lancets] 28 gauge misc See Rx Instructions .ROUTE .MEDSUPPLY Qty: 200 RF: 3 calcium acetate(phosphat bind) 667 mg capsule 2,001 mg PO TIDM RF: 0 ProRenal 8 mg iron-800 mcg-1,000 unit tablet 1 tab PO QAM RF: 0 (DME) Altera Nebulizer Misc See Rx Instructions .ROUTE .MEDSUPPLY Qty: 1 RF: 0 albuterol sulfate [Ventolin HFA] 90 mcg/actuation HFA aerosol inhaler 1 puff INH QID Qty: 18 RF: 2 diltiazem HCl 120 mg capsule,extended release 24hr 120 mg PO QAM Qty: 90 RF: 3 metoprolol tartrate 25 mg Tablet 25 mg PO HS RF: 0 insulin asp prt-insulin aspart [Novolog Mix 70-30 U-100 Insuln] 100 unit/mL (70-30) solution 0 unit subcut BID RF: 0 metoprolol tartrate 25 mg tablet 50 mg PO QAM RF: 0 Colace Clear 50 mg Capsule 50 mg PO BID RF: 0 Referrals Referrals: Noel Raymundo MD [Primary Care Provider] - Discharge Problem: Anemia Qualifiers: Anemia type: unspecified type Qualified Code(s): D64.9 - Anemia, unspecified
[2020-11-17 11:23] LABS: Basophils # (auto) 0.01 K/uL (0-0.2); Basophils % (auto) 0.3 %; Eosinophils # (auto) 0.04 K/uL (0-0.5); Hematocrit (blood only) 24.7 % (42-52); Hemoglobin 7.6 g/dL (14.0-18.0); Immature Granulocytes # (auto) 0.04 K/uL (0.00-0.02); Lymphocytes # (auto) 0.82 K/uL (1.2-3.4); Mean Corpuscular Hemoglobin 31.8 pg (25-34); Mean Corpuscular Hgb Conc 30.8 g/dL (32-36); Mean Corpuscular Volume 103.3 fL (80-100); Mean Platelet Volume 9.3 fL (7.4-10.4); Monocytes # (auto) 0.38 K/uL (0.11-0.59); Monocytes % (auto) 9.7 %; Neutrophils # (auto) 2.62 K/uL (1.4-6.5); Platelet Count 120 K/uL (130-400); RDW Coefficient of Variation 17.5 % (11.5-14.5); RDW Standard Deviation 65.9 fL (36.4-46.3); Red Blood Count 2.39 M/uL (4.7-6.1); White Blood Count 3.91 K/uL (4.8-10.8)
[2020-11-17 11:34] LABS: Partial Thromboplastin Time 25.6 Seconds (21.0-31.0)
--- NOTE | 2020-11-17 11:35 | XRay Report ---
XR chest 1V portable HISTORY: 85 years-old Male Dyspnea acute shortness of breath COMPARISON: Chest radiograph 12/31/2019 TECHNIQUE: Portable AP view of the chest FINDINGS: Cardiac silhouette is enlarged. Pulmonary vascular congestion with mild interstitial coarsening. Mild linear subsegmental left lung base opacities. No pneumothorax, large pleural effusion or lobar airsp daja consolidation. Vascular stent of the left upper extremity. Degenerative changes of the shoulders and spine. IMPRESSION: 1. Cardiomegaly and pulmonary vascular congestion with mild interstitial coarsening suggestive of mil d pulmonary edema versus interstitial pneumonitis. 2. Linear linear scarring/atelectasis of the left lung base. ACT 112: Negative or not required by law. The above report was generated using voice recognition software. It may contain grammatical, syntax o r spelling errors. Electronically signed by: Edgard Vazquez M.D. 11/17/2020 11:33 AM
[2020-11-17] MEDS ORDERED: SODIUM CHLORIDE 0.9% 250 ML IV PRN ×4 (12:03→19:53)
[2020-11-17 12:07] LABS: Alanine Aminotransferase 16 U/L (12-78); Albumin Globulin Ratio 0.7 (0.9-2); Albumin Level 3.1 gm/dl (3.4-5.0); Alkaline Phosphatase 63 U/L (45-117); Aspartate Aminotransferase 8 U/L (15-37); BUN Creatinine Ratio 6.1 (10-20); Bilirubin,Total 0.4 mg/dl (0.2-1); Blood Urea Nitrogen 49 mg/dl (7-18); Calcium 8.4 mg/dl (8.5-10.1); Carbon Dioxide 31 mmol/L (21-32); Chloride 93 mmol/L (98-107); Creatinine Clr Calc Pharmacy 7.3 ml/min; Est GFR (African American) 6.3; Est GFR (Non-African American) 5.5; Globulin 4.2 gm/dl (2.5-4.0); Glucose 129 mg/dl (70-99); Magnesium 2.4 mg/dl (1.8-2.4); NT Pro B Type Natriuretic Pept 2634 pg/ml (0-1800); Potassium 4.4 mmol/L (3.5-5.1); Sodium 133 mmol/L (136-145); Total Protein 7.3 gm/dl (6.4-8.2); Troponin I < 0.015 ng/ml (0-0.045)
--- NOTE | 2020-11-17 12:32 | History & Physical Report ---
Date of Service November 17, 2020 Assessment & Plan (1) Pneumonia due to SARS-associated coronavirus: Mr. 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 His complaints include Shortness of Breath, Non-productive Cough, and Generaliz ed Weakness. His anemia probably worsened recently when he was having dark stools about 3 weeks ago but they have normalized. He states that he is not bleeding currently. His cough and SOB have been present for approximately 1 week. Patient lives with his grandson who recently had coronavirus. He was seen at dialysis earlier today but was not dialyzed due to his SOB, COVID exposure, and a lower than usual Hgb of 7.6 g/dL today. He feels generally weak at this time -- but he typically feels weak when his Hgb is low. Patient denies any fever, chills, nausea, vomiting, or diarrhea. He denies any abdominal pain. He denies any chest pain, heaviness, tightness, or pressure. No pleuritic chest pain. No hemoptysis. No loss of taste or sense of smell. No headache or stiff neck. Appetite is at baseline. No upper respiratory symptoms. Patient does not take Metoprolol or Diltiazem on the mornings of dialysis due to hypotension. -- Admit to PCU Telemetry in Isolation for COVID. -- Continuous monitoring of O2 saturations. -- If he develops hypoxia - begin supplemental O2 and IV Dexamethasone. -- Duoneb nebulizer treatments. -- Continue usual inhalers. -- Remdesivir is not indicated as he's had symptoms for a week. -- Code status is DNR/DNI. (2) Cystic-bullous disease of lung: -- Duoneb nebulizer treatments. -- Continue usual inhalers. 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 -- Current Hgb is 7.6 g/dL. -- Getting 1 u PRBC's in ER. -- We will transfuse a 2nd unit. -- Dr. Ulloa ordered Epogen for today. (4) Anemia: -- Anemia related to both chronic GI blood loss and CKD. -- Current Hgb is 7.6 g/dL. -- Getting 1 u PRBC's in ER. -- We will transfuse a 2nd unit. -- Dr. Ulloa ordered Epogen for today. (5) Type 2 diabetes mellitus: -- Glycemic Consult placed. -- BSG checks. -- Diabetic/Renal diet ordered. (6) Paroxysmal atrial tachycardia: -- Continue Metoprolol Tartrate as ordered. -- Continue Diltiazem XT as ordered. (7) ESRD (end stage renal disease) on dialysis: -- Dr. Ulloa has been contacted. -- Patient will be dialyzed today. History of Present Illness Chief Complaint: -- SOB x 1 week. -- Low Hgb. -- +SARS CoV2. -- Pneumonia. Primary Care Provider: Noel Raymundo MD Mr. 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 Patient lives with his grandson who recently had coronavirus. He was seen at dialysis earlier today but was not dialyzed due to his SOB, COVID exposure, and a lower than usual Hgb of 7.6 g/dL today. He feels generally weak at this time -- but he typically feels weak when his Hgb is low. Patient denies any fever, chills, nausea, vomiting, or diarrhea. He does admit to having dark stools about 3 weeks ago but they have normalized. He states that he is not bleeding currently. He denies any abdominal pain. He denies any chest pain, heaviness, tightness, or pressure. No pleuritic chest pain. No hemoptysis. No loss of taste or sense of smell. No headache or stiff neck. Appetite is at baseline. No upper respiratory symptoms. Patient does not take Metoprolol or Diltiazem on the mornings of dialysis due to hypotension. Allergies Allergy/AdvReac Type Severity Reaction Status Date / Time clarithromycin AdvReac Intermediate confusion Verified 11/17/20 11:34 fish oil AdvReac Intermediate hx of Verified 11/17/20 11:34 hemorrhage in past Sulfa (Sulfonamide AdvReac Intermediate severe Verified 11/17/20 11:34 Antibiotics) agitation/delirium Home Medications Medication Instructions Recorded Confirmed Type calcium acetate(phosphat bind) 667 2,001 mg PO TIDM cap 03/02/19 11/17/20 History mg capsule vit B complx, C-iron 8 mg-folic 1 tab PO QAM tab 03/05/19 11/17/20 History acid 800 mcg-D3 1,000 unit-zinc tablet Colace Clear 50 mg PO BID 04/17/19 11/17/20 History aspirin 81 mg tablet,delayed 81 mg PO 3XWK #270 tab 10/21/19 11/17/20 Rx release BD Ultra-Fine Tiffanie Pen Needle 32 #200 ea NS 11/03/19 10/19/20 Rx gauge x 5/32" pravastatin 40 mg tablet 40 mg PO QPM #90 tab 12/16/19 11/17/20 Rx nebulizers #1 ea 12/23/19 10/19/20 Rx diltiazem HCl 120 mg 120 mg PO QAM #90 cap 01/04/20 11/17/20 Rx capsule,extended release 24 hr blood sugar diagnostic #300 ea 06/03/20 10/19/20 Rx folic acid 1 mg tablet 1 mg PO QAM #90 tab 07/11/20 11/17/20 Rx FreeStyle Lancets 28 gauge #200 ea NS 10/13/20 10/19/20 Rx albuterol sulfate 90 mcg/actuation 1 puff INH QID #18 gm 10/19/20 11/17/20 Rx aerosol inhaler insulin asp prt-insulin aspart 0 unit SUBCUT BID 11/17/20 11/17/20 History [Novolog Mix 70-30 U-100 Insuln] metoprolol tartrate 25 mg PO HS 11/17/20 11/17/20 History metoprolol tartrate 50 mg PO QAM 11/17/20 11/17/20 History Past Med/Surg History Medical History (Updated 11/19/20 @ 10:57 by Stan Sesay DO) Anemia 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 S/P EGD WITH CAUTERIZATION 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 Diabetes mellitus type 2, uncontrolled IDDM Diabetic neuropathy Dyslipidemia Emphysema lung suggested per CXR End-stage renal disease on hemodialysis DIALYSIS SATURDAY/SATURDAY/SATURDAY AT [facility] VIA PERMACATH GAVE (gastric antral vascular ectasia) Gout Hearing deficit LEFT History of blood transfusion 2/2 GIB felt r/t radiation therapy s/p total of 6 units PRBC's since 10/2018 Hypertension Non-occlusive coronary artery disease Nontoxic multinodular goiter Osteoarthritis Prostate cancer S/P SURGERY, XRT Pulmonary nodules UNDER SURVEILLANCE Thrombocytopenia Transient ischemic attack (TIA) 2014--no deficits, no neurologist Type 2 diabetes mellitus Surgical History Amputation of left little finger H/O prostatectomy History of arthroscopy LEFT KNEE History of bowel resection BOWEL LACERATION DURING ATTEMPTING POLYPECTOMY History of cardiac cath X3 = NO STENTS History of cataract surgery RIGHT/LEFT History of colonoscopy History of esophagogastroduodenoscopy (EGD) + CAUTERIZATION (2/2 GIB) History of surgery fistulogram with Dr. Hanna through Right AV fistula 08/17/19 History of tooth extraction S/P arteriovenous (AV) fistula creation LEFT S/P arteriovenous (AV) fistula creation right 05/[address] Hanna S/P dialysis catheter insertion Permcath + attempted thrombectomy: 04/2019: MAC sedation at [facility] Family History Father Family history of diabetes mellitus Hypertension Brother Prostate cancer Mother Heart disease Hypertension Denies family history of Ovarian cancer Breast cancer Lung cancer Colorectal cancer Social History Smoking Status: Never smoker Second Hand Exposure: Yes (parents smoked/ smoked); Hx Alcohol Use: No Hx Substance Use: No Preferred Language: French Communication Ability: Effective Visual Impairment: No Limitations Hearing Ability: Use of Hearing Aid Security Strategist Required: No Beliefs That Will Affect Care: None marital status: Current Living Situation: Family Current Living Situation Comment: Grandson lives with the patient. current occupational status: retired How many Children do You have: 1 Feels Safe at Home: Yes Childhood Exposure to Second-Hand Smoke: Yes Diet Comment: regular caffeine: Yes (coffee, once in a while) during the past year weight has: remained stable Dental Care, Regularly: Yes Physical Activity Frequency: Does not Exercise Seatbelt Use: always Sunscreen Use: No Assistive Devices: Walker Review of Systems Review of Systems: All systems reviewed & are unremarkable except as noted in Subjective Physical Exam Physical Exam: GENERAL: Patient is in no acute distress. SpO2 > 95% on room air. HEENT: Head is atraumatic, normocephalic. EOM's intact. Sclerae anicteric. Facies symmetric. No perioral cyanosis. NECK: No JVD. JVP is not elevated. Carotid upstrokes are + 2 bilaterally. CHEST/LUNGS: Diminished breath sounds throughout, occasional scattered late expiratory wheeze, no rales or crackles. CVS: S1 and S2 are regular at a rate of 90 bpm. No obvious murmurs, gallops, or rubs. PMI is nondisplaced. No lifts, heaves, or thrills. No abdominal aortic or renal bruits. ABDOMINAL EXAM: Bowel sounds are present. No masses, organomegaly, or tenderness. EXTREMITIES: Right upper extremity AV fistula with palpable thrill. No clubbing or cyanosis. There is trace pretibial edema. Intact radial pulses bilaterally. NEUROLOGIC EXAM: Patient is awake, alert, and oriented. Pleasant and cooperative. Answers questions appropriately. Speech is clear. Normal movement in all 4 extremities. Gait pattern was not assessed. [employer] CONSULTANT: -- Sinus rhythm with 1st degree AV block. -- Paroxysms of probable atrial tachycardia. ECHOCARDIOGRAM 01/01/2020: -- Normal LV size and systolic function. -- LVEF 55% to 60%, No RWMA's. -- Mildly dilated RV with normal RV systolic function. -- Mild left atrial dilatation. -- Sclerotic aortic valve with trace aortic insufficiency. -- Mild MR. -- Moderate pulmonary hypertension. RVSP is 51 mmHg. Results & Data Results & Data ([facility]) Vital Signs (Past 12 Hours) Vital Signs Temp Pulse Resp BP Pulse Ox 11/17/20 12:20 99 H 18 96 11/17/20 12:01 93 H 16 92 11/17/20 12:00 98 H 13 170/61 H 89 L 11/17/20 11:57 98 11/17/20 11:43 94 H 17 98 11/17/20 11:39 96 H 18 168/64 H 92 11/17/20 10:36 37.0 C 111 H 24 168/60 H 96 Laboratory Results Laboratory Results - last 24 hr 11/17/20 11/17/20 11/17/20 11:14 11:14 11:14 WBC 3.91 L RBC 2.39 L Hgb 7.6 L Hct 24.7 L MCV 103.3 H MCH 31.8 MCHC 30.8 L RDW Std Deviation 65.9 H RDW Coeff of Casandra 17.5 H Plt Count 120 L MPV 9.3 Immature Gran % (Auto) 1.0 Neut % (Auto) 67.0 Lymph % (Auto) 21.0 [place] % (Auto) 9.7 Eos % (Auto) 1.0 Baso % (Auto) 0.3 Neut # (Auto) 2.62 Lymph # (Auto) 0.82 L [place] # (Auto) 0.38 Eos # (Auto) 0.04 Baso # (Auto) 0.01 Immature Gran # (Auto) 0.04 H PT INR APTT PTT Ratio Sodium 133 L Potassium 4.4 Chloride 93 L Carbon Dioxide 31 Anion Gap 9.0 BUN 49 H Creatinine 8.04 H* Est Cr Clr Drug Dosing 7.3 Est GFR ( Amer) 6.3 Est GFR (Non-Af Amer) 5.5 BUN/Creatinine Ratio 6.1 L Glucose 129 H Calcium 8.4 L Magnesium 2.4 Total Bilirubin 0.4 AST 8 L ALT 16 Alkaline Phosphatase 63 Troponin I < 0.015 NT-Pro-B Natriuret Pep 2634 H Total Protein 7.3 Albumin 3.1 L Globulin 4.2 H Albumin/Globulin Ratio 0.7 L COVID-19 Eval Order SARS-CoV-2, RNA, NAAT Blood Type A Negative Antibody Screen NEGATIVE Crossmatch See Detail 11/17/20 11/17/20 11/17/20 11:14 11:54 11:54 WBC RBC Hgb Hct MCV MCH MCHC RDW Std Deviation RDW Coeff of Casandra Plt Count MPV Immature Gran % (Auto) Neut % (Auto) Lymph % (Auto) [place] % (Auto) Eos % (Auto) Baso % (Auto) Neut # (Auto) Lymph # (Auto) [place] # (Auto) Eos # (Auto) Baso # (Auto) Immature Gran # (Auto) PT 10.0 INR 1.0 APTT 25.6 PTT Ratio 1.0 Sodium Potassium Chloride Carbon Dioxide Anion Gap BUN Creatinine Est Cr Clr Drug Dosing Est GFR ( Amer) Est GFR (Non-Af Amer) BUN/Creatinine Ratio Glucose Calcium Magnesium Total Bilirubin AST ALT Alkaline Phosphatase Troponin I NT-Pro-B Natriuret Pep Total Protein Albumin Globulin Albumin/Globulin Ratio COVID-19 Eval [facility] SARS-CoV-2, RNA, NAAT POSITIVE A* Blood Type Antibody Screen Crossmatch Diagnostic Findings CXR 11/17/2020: 1. Cardiomegaly and pulmonary vascular congestion with mild interstitial coarsening suggestive of mild pulmonary edema versus interstitial pneumonitis. 2. Linear linear scarring/atelectasis of the left lung base. NON CONTRAST CT SCAN of CHEST/LUNGS 08/15/2020: Thyroid: The thyroid gland is markedly enlarged, heterogeneous, and multinodular and contains numerous coarse calcifications. The thyroid gland extends in the superior mediastinum on the left and causes mild rightward deviation of the trachea. This is similar in appearance to previous. Thoracic aorta: There is atherosclerotic calcification of the thoracic aorta, which is normal in caliber and demonstrates standard 3-vessel arch anatomy. Heart: The heart is enlarged and without pericardial effusion. The coronary arteries are densely calcified. Lungs and pleural spaces: Emphysematous change is noted. No pleural effusion is identified. There are dependent airspace opacities at the left lung base seen on image #20 and 38. Large blebs are present at the lung bases. Numerous (greater than 15) irregular pulmonary nodules are again seen scattered throughout both lungs. These are overall unchanged not significant changed as compared to 08/11/2018. A right upper lobe nodule on image #71 measures 1.2 cm. A left lower lobe lesion image #222 measures up to 1. 1.7 cm). A paravertebral left lower lobe lesion on image #36 measures 3.5 cm). Right lower lobe lesions are again shown to demonstrate central cavitation. There is debris within the largest right basilar bleb seen on image #209. Mediastinum: There is no mediastinal lymphadenopathy. More: Not well assessed without IV contrast. Axillae: There is no axillary lymphadenopathy. Upper abdomen: Partially there is a tiny hiatal hernia. The liver is cirrhotic in morphology and heterogeneous in attenuation with nodularity of the hepatic surface contour. There are least 6 low attenuation hepatic lesions measuring up to 2.5 cm. These have not significantly changed dating back to 2011. The spleen appears enlarged. Skeletal structures: The skeletal structures are osteopenic. Degenerative change and hyperkyphosis are noted in the thoracic spine. No lytic or blastic bony lesions are seen. IMPRESSION: 1. Cardiomegaly and emphysema. 2. Dependent patchy airspace opacities are seen in the left lung base. This is new from 07/22/2019 and could represent atelectasis versus a mild infectious/inflammatory pneumonitis. Clinical correlation will be required. 3. Numerous irregular pulmonary nodules are again seen scattered throughout both lungs as detailed above. These are overall unchanged from 07/22/2019. Several of the smaller nodules demonstrate central cavitation, and the appearance favors a chronic infectious or inflammatory etiology. Neoplasm would be impossible to exclude but is considered much less likely as the majority of these lesions have been present dating back to 2012. 4. Cirrhotic liver morphology. 5. Multinodular goiter. 6. Low attenuation hepatic lesions not significantly changed dating back to 2012. 7. Additional findings as above. Code Status & VTE Plan Code Status DNR/DNI VTE Prophylaxis Plan VTE Prophylaxis will be ordered: Yes Reason for no VTE drug order: Contraindicated Supervising Physician Co-Signing Physician Notes I personally saw and examined the patient. I verified all gaitan points and agree with JAMISON Mckinnon with the following exceptions and/or additions: 85-year-old male with end-stage renal disease who presents to the ER from dialysis with shortness of breath for approximately 1 week. Despite O/E Patient was examined outside of the room due to current pandemic, reduce exposure to COVID-19 and stability of no analysis discussed with Hans Mckinnon. He appeared well at rest with no respiratory distress. Moving all 4 extremities, alert. COVID-19 pneumonia - despite significant risk factors for deterioration even with nonoptimized lungs due to pulmonary edema from end-stage renal disease and anemia he is not hypoxic. Therefore no need for dexamethasone, remdesivir or convalescent plasma at this time. Continue to monitor for deterioration. Macrocytic anemia -concerning for GI bleed given history of this. Asymptomatic. Transferrin saturation, B12 and folate. Transfuse 2 packed red blood cells as discussed with nephrology. EPO deferred to nephrology. ESRD on dialysis - consult nephrology PG Care Time/CCT Total # of Minutes Spent Total Time Spent with Patient: Total time spent is greater than 50% in coordination of care (as documented) at patient's floor/unit and/or counseling patient:60 Coding Level of Care Code 28907 Initial Inpt Care Lvl 3 Diagnoses Pneumonia due to SARS-associated coronavirus J12.81 Cystic-bullous disease of lung J98.4 Chronic GI bleeding K92.2 Anemia D64.9 Type 2 diabetes mellitus E11.9 Paroxysmal atrial tachycardia I47.1 ESRD (end stage renal disease) on dialysis N18.6; Z99.2 Time Spent (min) 75
[2020-11-17 12:59] LABS: Reticulocyte % 2.5 % (0.5-2.0); Reticulocytes # 0.06 10^6/uL (0.02-0.10)
[2020-11-17] MEDS ORDERED: PANTOprazole 40 MG in SYRINGE 0 ML IV ONE (13:00)
[2020-11-17 13:13] LABS: D Dimer 1080 ug/L FEU (0-500)
[2020-11-17 13:18] LABS: C Reactive Protein 2.86 mg/dl (0-0.29); Ferritin 437.8 ng/ml (8-388)
[2020-11-17 13:35] LABS: Influenza A virus by PCR Negative (Negative); Influenza B virus by PCR Negative (Negative)
[2020-11-17 13:46] LABS: Folate (Folic Acid) > 20.00 ng/ml (>5.38); Vitamin B12 412 pg/ml (193-986)
[2020-11-17] MEDS ORDERED: SODIUM CHLORIDE 0.9% 1000ML 1,000 ML IV PRN (13:49)
[2020-11-17 14:30] LABS: Hepatitis B Surface Ab Quant < 3.10 mIU/mL (>or=10mIU/mL Immune); Hepatitis B Surface Antibody Non-Immune
[2020-11-17 14:40] LABS: Hepatitis B Surface Antigen Neg (Neg)
[2020-11-17] MEDS ORDERED: EPOETIN ALFA 10,000 UNITS/ML VIAL IV ONE (16:00)
--- NOTE | 2020-11-17 16:08 | Nephrology Consultation ---
Date of Consultation November 17, 2020 Assessment & Plan (1) End-stage renal disease on hemodialysis: * Patient is 4 kg above his EDW. CXR shows mild pulmonary congestion * Will order HD today and attempt 4 L UF. 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 Hospitalist service has ordered a second unit as well (3) Pneumonia due to SARS-associated coronavirus: * Patient is subjectively dyspneic but CXR shows only mild CHF and RA SaO2 is 95% * Consider Dexamethasone therapy if respiratory status worsens History of Present Illness Reason for Consultation: ESRD Attending Physician: Chencho Coronel MD History of Present Illness Mr. Madden is an 85 year old white male who was interviewed at the request of Dr. Coronel in order to provide inpatient HD. Medical records in the EMR were reviewed today and are summarized as follows: Mr. Madden has ESRD due to diabetic nephropathy and dialyzes TTS at [facility] (Dr. Acosta 4hrs 2K 2.5Ca F-180NR EDW 91.5kg). His medical history is significant for AODM, HTN, hypercholesterolemia, ASCVD, prostate CA s/p prostatectomy and radiation therapy, radiation colitis w/ intermittent LGI bleeding and lung nodules that are being monitored by [facility] Pulmonology. Mr. Madden presented to dialysis today and complained of dyspnea. Recent lab testing at the dialysis center revealed Hgb 7.6. Mr. Madden was transported to [facility] ED for blood transfusion and medical evaluation. He did not have his scheduled dialysis treatment. Laboratory testing in the ED reveals that he is COVID +. Mr. Madden was interviewed by telephone while he was in the ED. Physical exam withheld due to COVID + status and need for respiratory isolation. Medical plan of care has been discussed with Hans Mckinnon PA-c and the field account manager this afternoon. Allergies Allergy/AdvReac Type Severity Reaction Status Date / Time clarithromycin AdvReac Intermediate confusion Verified 11/17/20 11:34 fish oil AdvReac Intermediate hx of Verified 11/17/20 11:34 hemorrhage in past Sulfa (Sulfonamide AdvReac Intermediate severe Verified 11/17/20 11:34 Antibiotics) agitation/delirium Home Medications Medication Instructions Recorded Confirmed Type calcium acetate(phosphat bind) 667 2,001 mg PO TIDM cap 03/02/19 11/17/20 History mg capsule vit B complx, C-iron 8 mg-folic 1 tab PO QAM tab 03/05/19 11/17/20 History acid 800 mcg-D3 1,000 unit-zinc tablet Colace Clear 50 mg PO BID 04/17/19 11/17/20 History aspirin 81 mg tablet,delayed 81 mg PO 3XWK #270 tab 10/21/19 11/17/20 Rx release BD Ultra-Fine Tiffanie Pen Needle 32 #200 ea NS 11/03/19 10/19/20 Rx gauge x 5/32" pravastatin 40 mg tablet 40 mg PO QPM #90 tab 12/16/19 11/17/20 Rx nebulizers #1 ea 12/23/19 10/19/20 Rx diltiazem HCl 120 mg 120 mg PO QAM #90 cap 01/04/20 11/17/20 Rx capsule,extended release 24 hr blood sugar diagnostic #300 ea 06/03/20 10/19/20 Rx folic acid 1 mg tablet 1 mg PO QAM #90 tab 07/11/20 11/17/20 Rx FreeStyle Lancets 28 gauge #200 ea NS 10/13/20 10/19/20 Rx albuterol sulfate 90 mcg/actuation 1 puff INH QID #18 gm 10/19/20 11/17/20 Rx aerosol inhaler insulin asp prt-insulin aspart 0 unit SUBCUT BID 11/17/20 11/17/20 History [Novolog Mix 70-30 U-100 Insuln] metoprolol tartrate 25 mg PO HS 11/17/20 11/17/20 History metoprolol tartrate 50 mg PO QAM 11/17/20 11/17/20 History Patient History Medical History Anemia 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 S/P EGD WITH CAUTERIZATION 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 Diabetes mellitus type 2, uncontrolled IDDM Diabetic neuropathy Dyslipidemia Emphysema lung suggested per CXR End-stage renal disease on hemodialysis DIALYSIS SATURDAY/SATURDAY/SATURDAY AT [facility] VIA PERMACATH GAVE (gastric antral vascular ectasia) Gout Hearing deficit LEFT History of blood transfusion 2/2 GIB felt r/t radiation therapy s/p total of 6 units PRBC's since 10/2018 Hypertension Non-occlusive coronary artery disease Nontoxic multinodular goiter Osteoarthritis Prostate cancer S/P SURGERY, XRT Pulmonary nodules UNDER SURVEILLANCE Thrombocytopenia Transient ischemic attack (TIA) 2014--no deficits, no neurologist Type 2 diabetes mellitus Surgical History Amputation of left little finger H/O prostatectomy History of arthroscopy LEFT KNEE History of bowel resection BOWEL LACERATION DURING ATTEMPTING POLYPECTOMY History of cardiac cath X3 = NO STENTS History of cataract surgery RIGHT/LEFT History of colonoscopy History of esophagogastroduodenoscopy (EGD) + CAUTERIZATION (11/15 GIB) History of surgery fistulogram with Dr. Hanna through Right AV fistula 08/17/19 History of tooth extraction S/P arteriovenous (AV) fistula creation LEFT S/P arteriovenous (AV) fistula creation right 05/[address] Hanna S/P dialysis catheter insertion Permcath + attempted thrombectomy: 04/2019: MAC sedation at [facility] Family History Father Family history of diabetes mellitus Hypertension Brother Prostate cancer Mother Heart disease Hypertension Denies family history of Ovarian cancer Breast cancer Lung cancer Colorectal cancer Social History Smoking Status: Never smoker Second Hand Exposure: Yes (parents smoked/ smoked); Hx Alcohol Use: No Hx Substance Use: No Preferred Language: Irish Communication Ability: Effective Visual Impairment: No Limitations Hearing Ability: Use of Hearing Aid Coke Inspector Required: No Beliefs That Will Affect Care: None marital status: Current Living Situation: Family Current Living Situation Comment: grandson current occupational status: retired How many Children do You have: 1 Feels Safe at Home: Yes Childhood Exposure to Second-Hand Smoke: Yes Diet Comment: regular caffeine: Yes (coffee, once in a while) during the past year weight has: remained stable Dental Care, Regularly: Yes Physical Activity Frequency: Does not Exercise Seatbelt Use: always Sunscreen Use: No Assistive Devices: None Review of Systems Constitutional: + weakness; no fever Eyes: no problem reported Ear, Nose, Mouth, Throat: no problem reported Respiratory: + dyspnea Cardiovascular: no chest pain, no palpitations and no edema Gastrointestinal: no abdominal pain Genitourinary: no dysuria, no urinary hesitancy and no hematuria Musculoskeletal: no back pain Integumentary: no rash Neurologic: no dizziness and no confusion Results & Data ([facility]) Vital Signs (Past 12 Hours) Vital Signs Temp Pulse Resp BP Pulse Ox 11/17/20 14:53 91 H 18 163/72 H 95 11/17/20 14:45 37.1 C 86 20 151/67 H 97 11/17/20 14:15 86 16 134/62 91 11/17/20 14:01 88 14 95 11/17/20 14:00 87 22 148/75 H 96 11/17/20 13:45 36.9 C 92 H 15 161/71 H 94 11/17/20 13:40 91 H 20 96 11/17/20 13:30 91 H 15 152/67 H 94 11/17/20 13:20 90 15 96 11/17/20 13:15 36.8 C 91 H 22 163/72 H 95 11/17/20 13:01 108 H 25 H 96 11/17/20 13:00 36.9 C 105 H 19 162/77 H 96 11/17/20 12:59 37.1 C 108 H 22 154/72 H 94 11/17/20 12:43 37.0 C 90 20 182/70 H 97 11/17/20 12:40 93 H 17 11/17/20 12:30 89 16 182/70 H 94 11/17/20 12:20 99 H 18 96 11/17/20 12:01 93 H 16 92 11/17/20 12:00 98 H 13 170/61 H 89 L 11/17/20 11:57 98 11/17/20 11:43 94 H 17 98 11/17/20 11:39 96 H 18 168/64 H 92 11/17/20 10:36 37.0 C 111 H 24 168/60 H 96 Laboratory Tests 11/17/20 11/17/20 11/17/20 11:14 11:14 12:36 WBC 3.91 L Hgb 7.6 L Hct 24.7 L Plt Count 120 L Sodium 133 L Potassium 4.4 Chloride 93 L Carbon Dioxide 31 BUN 49 H Creatinine 8.04 H* Glucose 129 H Transferrin % Sat 9 L Ferritin 437.8 H NT-Pro-B Natriuret Pep 2634 H Albumin 3.1 L PG Care Time/CCT Total # of Minutes Spent Total Time Spent with Patient: Total time spent is greater than 50% in coordination of care (as documented) at patient's floor/unit and/or counseling patient: Coding Level of Care Code 11224 Inpt Consult Level 5 Diagnoses End-stage renal disease on hemodialysis N18.6; Z99.2 Anemia D64.9 Anemia type: unspecified type Pneumonia due to SARS-associated coronavirus J12.81 (1) Anemia Anemia type: unspecified type Qualified Code(s): D64.9 - Anemia, unspecified
[2020-11-17] MEDS ORDERED: ONDANSETRON INJ 2 MG/ML 2 ML VIAL IV PRN (16:38)
[2020-11-17] MEDS ORDERED: NITROGLYCERIN SL 0.4 MG/TAB TAB SL PRN (16:38)
[2020-11-17] MEDS ORDERED: POLYETHYLENE (MIRALAX) 17 GM PACK PO PRN (16:38)
[2020-11-17] MEDS ORDERED: ALUMINUM/MAGNESIUM SUSP 30 ML UDC PO PRN (16:38)
[2020-11-17] MEDS ORDERED: MAGNESIUM HYDROXIDE SUSP 30 ML UDC PO PRN (16:38)
[2020-11-17] MEDS ORDERED: ACETAMINOPHEN 325 MG TAB PO PRN (16:38)
[2020-11-17] MEDS ORDERED: ZOLPIDEM TARTRATE 5 MG TAB PO PRN (16:38)
[2020-11-17] MEDS ORDERED: MoRPHine SULFATE 2 MG/ML CARP IV PRN (16:38)
[2020-11-17] MEDS ORDERED: ALBUT/IPRATROP 3MG/0.5MG NEB 3 ML VIAL NEB SCH (16:38)
[2020-11-17] MEDS ORDERED: PHARMACY GLYCEMIC MGMT CONSULT PRN (16:57)
[2020-11-17] MEDS: CALCIUM ACETATE 667 MG CAP/TAB PO SCH (17:24)
[2020-11-17] MEDS ORDERED: ALBUT/IPRATROP 3MG/0.5MG NEB 3 ML VIAL NEB PRN (17:26)
[2020-11-17] MEDS ORDERED: GLUCOSE 10 TABS/TUBE PO PRN (17:30)
[2020-11-17] MEDS ORDERED: GLUCAGON FOR INJ 1 MG VIAL IM PRN (17:30)
[2020-11-17] MEDS ORDERED: DEXTROSE 50% 50 ML SYRINGE IV PRN (17:30)
[2020-11-17] MEDS ORDERED: GLUCOSE 40% GEL 15 GM TUBE PO PRN (17:30)
[2020-11-17] MEDS ORDERED: CARBOHYDRATES FOR HYPOGLYCEMIA PO PRN (17:30)
[2020-11-17] MEDS ORDERED: INSULIN HUMAN NPH SC ONE (18:00)
[2020-11-17] MEDS: INSULIN ASPART 100 UNITS/ML 3 ML PEN SC SCH ×2 (18:46→20:30)
[2020-11-17] MEDS ORDERED: ALBUTEROL HFA 8 GM INHALER INH SCH (19:00)
[2020-11-17] MEDS ORDERED: ALBUTEROL HFA 8 GM INHALER INH PRN (19:47)
[2020-11-17] MEDS: PRAVASTATIN SOD 40 MG TAB PO SCH (20:35)
[2020-11-17] MEDS: METOPROLOL TARTRATE 25 MG TAB PO SCH (20:35)
[2020-11-17] MEDS: PANTOprazole 40 MG in SYRINGE 0 ML IV SCH (20:35)
[2020-11-17] MEDS: DOCUSATE SODIUM 100 MG CAP PO SCH (20:43)
--- NOTE | 2020-11-18 06:12 | Electrocardiogram Report ---
Test Reason : Blood Pressure : / mmHG Vent. Rate : 091 BPM Atrial Rate : 089 BPM P-R Int : 296 ms QRS Dur : 080 ms QT Int : 360 ms P-R-T Axes : 000 043 042 degrees QTc Int : 442 ms Sinus rhythm with 1st degree A-V block Premature atrial complexes Nonspecific ST abnormality Abnormal ECG When compared with ECG of 01-JAN-2020 06:27, T wave amplitude has increased in Lateral leads Premature atrial complexes are now Present Confirmed by Phani Rodriguez ([id number]) on 11/18/2020 6:12:14 AM Referred By: Confirmed By:Phani Rodriguez
[2020-11-18 07:07] LABS: Basophils # (auto) 0.01 K/uL (0-0.2); Basophils % (auto) 0.3 %; Eosinophils # (auto) 0.03 K/uL (0-0.5); Eosinophils % (auto) 0.9 %; Hemoglobin 9.2 g/dL (14.0-18.0); Immature Granulocytes # (auto) 0.03 K/uL (0.00-0.02); Immature Granulocytes % (auto) 0.9 %; Lymphocytes # (auto) 0.84 K/uL (1.2-3.4); Lymphocytes % (auto) 26.2 %; Mean Corpuscular Hemoglobin 30.3 pg (25-34); Mean Corpuscular Hgb Conc 30.7 g/dL (32-36); Mean Corpuscular Volume 98.7 fL (80-100); Mean Platelet Volume 9.6 fL (7.4-10.4); Monocytes # (auto) 0.28 K/uL (0.11-0.59); Monocytes % (auto) 8.7 %; Neutrophils # (auto) 2.02 K/uL (1.4-6.5); Nucleated RBC # (auto) 0.02 K/uL (0-0); Nucleated RBC % (auto) 0.6 %; Platelet Count 118 K/uL (130-400); RDW Coefficient of Variation 21.3 % (11.5-14.5); RDW Standard Deviation 77.6 fL (36.4-46.3); Red Blood Count 3.04 M/uL (4.7-6.1); White Blood Count 3.21 K/uL (4.8-10.8)
[2020-11-18 07:32] LABS: Anisocytosis Present; Hypochromasia Present; Polychromasia 1+
[2020-11-18 07:51] LABS: BUN Creatinine Ratio 4.5 (10-20); Calcium 8.6 mg/dl (8.5-10.1); Creatinine Clr Calc Pharmacy 9.8 ml/min; Est GFR (African American) 9.3
[2020-11-18] MEDS: CALCIUM ACETATE 667 MG CAP/TAB PO SCH ×3 (08:27→17:21)
[2020-11-18] MEDS: PANTOprazole 40 MG in SYRINGE 0 ML IV SCH ×2 (08:28→20:38)
[2020-11-18] MEDS: METOPROLOL TARTRATE 50 MG TAB PO SCH (08:28)
[2020-11-18] MEDS: NEPHROCAPS PO SCH (08:28)
[2020-11-18] MEDS: FOLIC ACID 1 MG TAB PO SCH (08:28)
[2020-11-18] MEDS: DOCUSATE SODIUM 100 MG CAP PO SCH ×2 (08:28→20:39)
[2020-11-18] MEDS: INSULIN ASPART 100 UNITS/ML 3 ML PEN SC SCH ×4 (09:16→20:39)
[2020-11-18] MEDS: INSULIN HUMAN NPH SC SCH ×2 (09:30→17:22)
--- NOTE | 2020-11-18 10:31 | Nephrology Progress Note ---
Date of Service November 18, 2020 Assessment & Plan (1) End-stage renal disease on hemodialysis: * Patient is back to his outpatient EDW of 91.5 kg. Breathing is subjectively improved. Electrolyte balance is acceptable. No acute indication for HD today. Will schedule next HD for am to maintain outpatient TTS schedule (2) Anemia: * Transfused 2 U PRBC 11/17/20 (3) Pneumonia due to SARS-associated coronavirus: * Patient is subjectively improved following blood transfusion and UF/HD. RA SaO2 96% * Consider Dexamethasone therapy if respiratory status worsens Admission and Anticipated Discharge Date Admission Date: November 17, 2020 Subjective Mr. Madden is on respiratory isolation due to COVID-19 + status. EMR was reviewed and patient was contacted by telephone this morning. Exam held due to isolation status. Mr. Madden was transfused 2 U PRBC yesterday and dialyzed heparin free x 4 hours without complication. 4 L UF obtained. He is now back to his EDW of 91.5 kg. Mr. Madden voices no new medical concerns. Review of Systems Constitutional: + weakness; no fever Eyes: no problem reported Ear, Nose, Mouth, Throat: no problem reported Respiratory: + dyspnea Cardiovascular: no chest pain and no edema Gastrointestinal: no abdominal pain Musculoskeletal: no back pain Integumentary: no rash Neurologic: no confusion Results & Data ([place]) Vital Signs (Past 12 Hours) Vital Signs Temp Pulse Pulse Pulse Resp BP BP 11/18/20 07:54 95 H 18 11/18/20 07:44 97 H 20 144/57 H 11/18/20 07:40 37.0 C 84 18 131/49 L 11/18/20 06:35 75 11/18/20 06:30 98 H 149/47 H 11/18/20 06:15 75 143/54 H 11/18/20 06:00 96 H 153/56 H 11/18/20 05:45 78 149/51 H 11/18/20 05:30 94 H 160/54 H 11/18/20 05:15 103 H 128/54 L 11/18/20 05:00 74 136/52 L 11/18/20 04:45 83 157/43 H 11/18/20 04:30 79 135/55 L 11/18/20 04:15 99 H 132/38 L 11/18/20 04:00 84 145/39 H 11/18/20 03:58 37.4 C 8 L 17 132/55 L 11/18/20 03:45 91 H 150/48 H 11/18/20 03:30 80 149/38 H 11/18/20 03:16 81 156/47 H 11/18/20 03:00 76 132/55 L 11/18/20 02:45 76 143/56 H 11/18/20 02:30 78 146/56 H 11/18/20 02:20 76 11/18/20 02:15 77 137/48 L 11/18/20 02:00 75 140/49 L 11/18/20 01:45 75 127/53 L 11/18/20 01:40 97 H 11/18/20 01:30 82 139/59 L 11/18/20 01:20 96 H 11/18/20 01:15 97 H 142/57 H 11/18/20 01:10 81 11/18/20 01:00 79 137/43 L 11/18/20 00:50 77 11/18/20 00:45 80 137/54 L 11/18/20 00:40 81 11/18/20 00:35 84 136/57 L 11/18/20 00:30 80 11/18/20 00:20 78 11/18/20 00:11 37.2 C 80 17 137/54 L 11/18/20 00:10 89 11/18/20 00:00 85 136/57 L Pulse Ox 11/18/20 07:54 96 11/18/20 07:44 96 11/18/20 07:40 90 11/18/20 06:35 11/18/20 06:30 95 11/18/20 06:15 92 11/18/20 06:00 93 11/18/20 05:45 95 11/18/20 05:30 95 11/18/20 05:15 91 11/18/20 05:00 94 11/18/20 04:45 96 11/18/20 04:30 94 11/18/20 04:15 92 11/18/20 04:00 92 11/18/20 03:58 95 11/18/20 03:45 92 11/18/20 03:30 95 11/18/20 03:16 96 11/18/20 03:00 95 11/18/20 02:45 95 11/18/20 02:30 95 11/18/20 02:20 96 11/18/20 02:15 90 11/18/20 02:00 92 11/18/20 01:45 93 11/18/20 01:40 93 11/18/20 01:30 93 11/18/20 01:20 95 11/18/20 01:15 94 11/18/20 01:10 96 11/18/20 01:00 97 11/18/20 00:50 94 11/18/20 00:45 94 11/18/20 00:40 94 11/18/20 00:35 94 11/18/20 00:30 94 11/18/20 00:20 91 11/18/20 00:11 94 11/18/20 00:10 91 11/18/20 00:00 96 Laboratory Tests 11/18/20 11/18/20 06:41 06:41 WBC 3.21 L Hgb 9.2 L Hct 30.0 L Plt Count 118 L Sodium 137 Potassium 5.0 Chloride 101 Carbon Dioxide 30 BUN 26 H Creatinine 5.85 H* D Glucose 109 H PG Care Time/CCT Total # of Minutes Spent Total Time Spent with Patient: Total time spent is greater than 50% in coordination of care (as documented) at patient's floor/unit and/or counseling patient: Coding Level of Care Code 02565 Subseq Hosp Care Lvl 3 Diagnoses End-stage renal disease on hemodialysis N18.6; Z99.2 Anemia D64.9 Anemia type: unspecified type Pneumonia due to SARS-associated coronavirus J12.81 (1) Anemia Anemia type: unspecified type Qualified Code(s): D64.9 - Anemia, unspecified
--- NOTE | 2020-11-18 10:37 | Hospitalist Progress Note ---
Date of Service November 18, 2020 Assessment & Plan (1) Pneumonia due to SARS-associated coronavirus: no signs of pneumonia on chest x-ray, lungs clear, breathing well on room air would classify more as COVID 19 infection no dexamethasone, no Remdesivir due to COVID he will need to get HD at [facility], transport has been arranged -- Code status is DNR/DNI. (2) Cystic-bullous disease of lung: -- Duoneb nebulizer treatments. -- Continue usual inhalers. 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 -- Hgb is 7.6 g/dL on admission, received two units with HD Hb up to 9 today, no further blood needed -- Dr. 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 -- Hb up to 9 today (5) Type 2 diabetes mellitus: -- Glycemic Consult placed. -- BSG checks. -- Diabetic/Renal diet ordered. monitor for hypoglycemia, no episodes (6) Paroxysmal atrial tachycardia: -- Continue Metoprolol Tartrate as ordered. -- Continue Diltiazem XT as ordered. (7) ESRD (end stage renal disease) on dialysis: HD on 11/17 and plan for HD on 11/19 arranged for transportation to [facility] due to COVID 19 status this will start on Wednesday 11/22 discharge to home on 11/20 as long as he remains stable Admission and Anticipated Discharge Date Admission Date: November 17, 2020 Subjective patient feels great, Hb is 9 no dyspnea, no cough, no fever, no signs of COVID pneumonia plan for HD tomorrow d/w , arranged for transport to [place] [facility] on Saturday, he will need to go there due to COVID status he is eating well, his strength is normal, OOB in a chair most of the day no GI symptoms, no melena Review of Systems Review of Systems: All systems reviewed & are unremarkable except as noted in Subjective Physical Exam Constitutional: WD/WN, vitals as above Eyes: PERRL, conjunctivae normal, anicteric sclerae Neck: trachea midline, no thyromegaly Respiratory: normal respiratory effort, lungs clear to auscultation Cardiovascular: RRR, no murmur, no edema Gastrointestinal (Abdomen): normal bowel sounds, soft, nontender, no hepatosplenomegaly Musculoskeletal: no cyanosis or clubbing, extremities motor strength 5/5 Skin: no rashes, warm and dry Neurologic: patellar DTR's 2+ bilat, sensation intact and PERRL, EOMI, accommodation nl, no face palsy, no dysarthria Psychiatric: A+Ox3, euthymic affect Lymphatic: no cervical or axillary lymphadenopathy Results & Data Results & Data ([facility]) Vital Signs (Past 12 Hours) Vital Signs Temp Pulse Pulse Pulse Resp BP BP 11/18/20 07:54 95 H 18 11/18/20 07:44 97 H 20 144/57 H 11/18/20 07:40 37.0 C 84 18 131/49 L 11/18/20 06:35 75 11/18/20 06:30 98 H 149/47 H 11/18/20 06:15 75 143/54 H 11/18/20 06:00 96 H 153/56 H 11/18/20 05:45 78 149/51 H 11/18/20 05:30 94 H 160/54 H 11/18/20 05:15 103 H 128/54 L 11/18/20 05:00 74 136/52 L 11/18/20 04:45 83 157/43 H 11/18/20 04:30 79 135/55 L 11/18/20 04:15 99 H 132/38 L 11/18/20 04:00 84 145/39 H 11/18/20 03:58 37.4 C 8 L 17 132/55 L 11/18/20 03:45 91 H 150/48 H 11/18/20 03:30 80 149/38 H 11/18/20 03:16 81 156/47 H 11/18/20 03:00 76 132/55 L 11/18/20 02:45 76 143/56 H 11/18/20 02:30 78 146/56 H 11/18/20 02:20 76 11/18/20 02:15 77 137/48 L 11/18/20 02:00 75 140/49 L 11/18/20 01:45 75 127/53 L 11/18/20 01:40 97 H 11/18/20 01:30 82 139/59 L 11/18/20 01:20 96 H 11/18/20 01:15 97 H 142/57 H 11/18/20 01:10 81 11/18/20 01:00 79 137/43 L 11/18/20 00:50 77 11/18/20 00:45 80 137/54 L 11/18/20 00:40 81 11/18/20 00:35 84 136/57 L 11/18/20 00:30 80 11/18/20 00:20 78 11/18/20 00:11 37.2 C 80 17 137/54 L 11/18/20 00:10 89 11/18/20 00:00 85 136/57 L Pulse Ox 11/18/20 07:54 96 11/18/20 07:44 96 11/18/20 07:40 90 11/18/20 06:35 11/18/20 06:30 95 11/18/20 06:15 92 11/18/20 06:00 93 11/18/20 05:45 95 11/18/20 05:30 95 11/18/20 05:15 91 11/18/20 05:00 94 11/18/20 04:45 96 11/18/20 04:30 94 11/18/20 04:15 92 11/18/20 04:00 92 11/18/20 03:58 95 11/18/20 03:45 92 11/18/20 03:30 95 11/18/20 03:16 96 11/18/20 03:00 95 11/18/20 02:45 95 11/18/20 02:30 95 11/18/20 02:20 96 11/18/20 02:15 90 11/18/20 02:00 92 11/18/20 01:45 93 11/18/20 01:40 93 11/18/20 01:30 93 11/18/20 01:20 95 11/18/20 01:15 94 11/18/20 01:10 96 11/18/20 01:00 97 11/18/20 00:50 94 11/18/20 00:45 94 11/18/20 00:40 94 11/18/20 00:35 94 11/18/20 00:30 94 11/18/20 00:20 91 11/18/20 00:11 94 11/18/20 00:10 91 11/18/20 00:00 96 Laboratory Results Laboratory Results - last 24 hr 11/17/20 11/17/20 11/17/20 11:14 11:14 11:14 WBC 3.91 L RBC 2.39 L Hgb 7.6 L Hct 24.7 L MCV 103.3 H MCH 31.8 MCHC 30.8 L RDW Std Deviation 65.9 H RDW Coeff of Casandra 17.5 H Plt Count 120 L MPV 9.3 Immature Gran % (Auto) 1.0 Neut % (Auto) 67.0 Lymph % (Auto) 21.0 Rolette % (Auto) 9.7 Eos % (Auto) 1.0 Baso % (Auto) 0.3 Reticulocyte % (Auto) Neut # (Auto) 2.62 Lymph # (Auto) 0.82 L Rolette # (Auto) 0.38 Eos # (Auto) 0.04 Baso # (Auto) 0.01 Reticulocyte # Immature Gran # (Auto) 0.04 H Absolute Nucleated RBC Nucleated RBC % (auto) Polychromasia Hypochromasia Anisocytosis PT INR APTT PTT Ratio D-Dimer Sodium 133 L Potassium 4.4 Chloride 93 L Carbon Dioxide 31 Anion Gap 9.0 BUN 49 H Creatinine 8.04 H* Est Cr Clr Drug Dosing 7.3 Est GFR ( Amer) 6.3 Est GFR (Non-Af Amer) 5.5 BUN/Creatinine Ratio 6.1 L Glucose 129 H POC Glucose Calcium 8.4 L Magnesium 2.4 Iron Transferrin Transferrin % Sat Ferritin Total Bilirubin 0.4 AST 8 L ALT 16 Alkaline Phosphatase 63 Lactate Dehydrogenase Total Creatine Kinase Troponin I < 0.015 C-Reactive Protein NT-Pro-B Natriuret Pep 2634 H Total Protein 7.3 Albumin 3.1 L Globulin 4.2 H Albumin/Globulin Ratio 0.7 L Vitamin B12 Folate Procalcitonin Nasal Screen MRSA (PCR) COVID-19 Eval Order Hep Bs Antigen Hep Bs Antibody Hep Bs Antibody, Quant Influ A Molecular Assay Influ B Molecular Assay SARS-CoV-2, RNA, NAAT Blood Type A Negative Antibody Screen NEGATIVE Crossmatch See Detail 11/17/20 11/17/20 11/17/20 11:14 11:54 11:54 WBC RBC Hgb Hct MCV MCH MCHC RDW Std Deviation RDW Coeff of Casandra Plt Count MPV Immature Gran % (Auto) Neut % (Auto) Lymph % (Auto) Rolette % (Auto) Eos % (Auto) Baso % (Auto) Reticulocyte % (Auto) Neut # (Auto) Lymph # (Auto) Rolette # (Auto) Eos # (Auto) Baso # (Auto) Reticulocyte # Immature Gran # (Auto) Absolute Nucleated RBC Nucleated RBC % (auto) Polychromasia Hypochromasia Anisocytosis PT 10.0 INR 1.0 APTT 25.6 PTT Ratio 1.0 D-Dimer Sodium Potassium Chloride Carbon Dioxide Anion Gap BUN Creatinine Est Cr Clr Drug Dosing Est GFR ( Amer) Est GFR (Non-Af Amer) BUN/Creatinine Ratio Glucose POC Glucose Calcium Magnesium Iron Transferrin Transferrin % Sat Ferritin Total Bilirubin AST ALT Alkaline Phosphatase Lactate Dehydrogenase Total Creatine Kinase Troponin I C-Reactive Protein NT-Pro-B Natriuret Pep Total Protein Albumin Globulin Albumin/Globulin Ratio Vitamin B12 Folate Procalcitonin Nasal Screen MRSA (PCR) COVID-19 Eval [facility] Hep Bs Antigen Hep Bs Antibody Hep Bs Antibody, Quant Influ A Molecular Assay Influ B Molecular Assay SARS-CoV-2, RNA, NAAT POSITIVE A* Blood Type Antibody Screen Crossmatch 11/17/20 11/17/20 11/17/20 12:36 12:36 12:36 WBC RBC Hgb Hct MCV MCH MCHC RDW Std Deviation RDW Coeff of Casandra Plt Count MPV Immature Gran % (Auto) Neut % (Auto) Lymph % (Auto) Rolette % (Auto) Eos % (Auto) Baso % (Auto) Reticulocyte % (Auto) Neut # (Auto) Lymph # (Auto) Rolette # (Auto) Eos # (Auto) Baso # (Auto) Reticulocyte # Immature Gran # (Auto) Absolute Nucleated RBC Nucleated RBC % (auto) Polychromasia Hypochromasia Anisocytosis PT INR APTT PTT Ratio D-Dimer 1080 H* Sodium Potassium Chloride Carbon Dioxide Anion Gap BUN Creatinine Est Cr Clr Drug Dosing Est GFR ( Amer) Est GFR (Non-Af Amer) BUN/Creatinine Ratio Glucose POC Glucose Calcium Magnesium Iron 23 L Transferrin 182 L Transferrin % Sat 9 L Ferritin 437.8 H Total Bilirubin AST ALT Alkaline Phosphatase Lactate Dehydrogenase 161 Total Creatine Kinase 123 Troponin I C-Reactive Protein 2.86 H NT-Pro-B Natriuret Pep Total Protein Albumin Globulin Albumin/Globulin Ratio Vitamin B12 Folate Procalcitonin Nasal Screen MRSA (PCR) COVID-19 Eval Order Hep Bs Antigen Hep Bs Antibody Hep Bs Antibody, Quant Influ A Molecular Assay Influ B Molecular Assay SARS-CoV-2, RNA, NAAT Blood Type Antibody Screen Crossmatch 11/17/20 11/17/20 11/17/20 12:36 12:36 12:36 WBC RBC Hgb Hct MCV MCH MCHC RDW Std Deviation RDW Coeff of Casandra Plt Count MPV Immature Gran % (Auto) Neut % (Auto) Lymph % (Auto) Rolette % (Auto) Eos % (Auto) Baso % (Auto) Reticulocyte % (Auto) 2.5 H Neut # (Auto) Lymph # (Auto) Rolette # (Auto) Eos # (Auto) Baso # (Auto) Reticulocyte # 0.06 Immature Gran # (Auto) Absolute Nucleated RBC Nucleated RBC % (auto) Polychromasia Hypochromasia Anisocytosis PT INR APTT PTT Ratio D-Dimer Sodium Potassium Chloride Carbon Dioxide Anion Gap BUN Creatinine Est Cr Clr Drug Dosing Est GFR ( Amer) Est GFR (Non-Af Amer) BUN/Creatinine Ratio Glucose POC Glucose Calcium Magnesium Iron Transferrin Transferrin % Sat Ferritin Total Bilirubin AST ALT Alkaline Phosphatase Lactate Dehydrogenase Total Creatine Kinase Troponin I C-Reactive Protein NT-Pro-B Natriuret Pep Total Protein Albumin Globulin Albumin/Globulin Ratio Vitamin B12 412 Folate > 20.00 Procalcitonin 0.59 H Nasal Screen MRSA (PCR) COVID-19 Eval Order Hep Bs Antigen Hep Bs Antibody Hep Bs Antibody, Quant Influ A Molecular Assay Influ B Molecular Assay SARS-CoV-2, RNA, NAAT Blood Type Antibody Screen Crossmatch 11/17/20 11/17/20 11/17/20 12:36 12:50 17:44 WBC RBC Hgb Hct MCV MCH MCHC RDW Std Deviation RDW Coeff of Casandra Plt Count MPV Immature Gran % (Auto) Neut % (Auto) Lymph % (Auto) Rolette % (Auto) Eos % (Auto) Baso % (Auto) Reticulocyte % (Auto) Neut # (Auto) Lymph # (Auto) Rolette # (Auto) Eos # (Auto) Baso # (Auto) Reticulocyte # Immature Gran # (Auto) Absolute Nucleated RBC Nucleated RBC % (auto) Polychromasia Hypochromasia Anisocytosis PT INR APTT PTT Ratio D-Dimer Sodium Potassium Chloride Carbon Dioxide Anion Gap BUN Creatinine Est Cr Clr Drug Dosing Est GFR ( Amer) Est GFR (Non-Af Amer) BUN/Creatinine Ratio Glucose POC Glucose 80 Calcium Magnesium Iron Transferrin Transferrin % Sat Ferritin Total Bilirubin AST ALT Alkaline Phosphatase Lactate Dehydrogenase Total Creatine Kinase Troponin I C-Reactive Protein NT-Pro-B Natriuret Pep Total Protein Albumin Globulin Albumin/Globulin Ratio Vitamin B12 Folate Procalcitonin Nasal Screen MRSA (PCR) COVID-19 Eval Order Hep Bs Antigen Neg Hep Bs Antibody Non-Immune Hep Bs Antibody, Quant < 3.10 L Influ A Molecular Assay Negative Influ B Molecular Assay Negative SARS-CoV-2, RNA, NAAT Blood Type Antibody Screen Crossmatch 11/17/20 11/17/20 11/18/20 19:30 20:28 06:41 WBC 3.21 L RBC 3.04 L Hgb 9.2 L Hct 30.0 L MCV 98.7 MCH 30.3 MCHC 30.7 L RDW Std Deviation 77.6 H RDW Coeff of Casandra 21.3 H Plt Count 118 L MPV 9.6 Immature Gran % (Auto) 0.9 Neut % (Auto) 63.0 Lymph % (Auto) 26.2 Rolette % (Auto) 8.7 Eos % (Auto) 0.9 Baso % (Auto) 0.3 Reticulocyte % (Auto) Neut # (Auto) 2.02 Lymph # (Auto) 0.84 L Rolette # (Auto) 0.28 Eos # (Auto) 0.03 Baso # (Auto) 0.01 Reticulocyte # Immature Gran # (Auto) 0.03 H Absolute Nucleated RBC 0.02 H Nucleated RBC % (auto) 0.6 Polychromasia 1+ Hypochromasia Present Anisocytosis Present PT INR APTT PTT Ratio D-Dimer Sodium Potassium Chloride Carbon Dioxide Anion Gap BUN Creatinine Est Cr Clr Drug Dosing Est GFR ( Amer) Est GFR (Non-Af Amer) BUN/Creatinine Ratio Glucose POC Glucose 114 H Calcium Magnesium Iron Transferrin Transferrin % Sat Ferritin Total Bilirubin AST ALT Alkaline Phosphatase Lactate Dehydrogenase Total Creatine Kinase Troponin I C-Reactive Protein NT-Pro-B Natriuret Pep Total Protein Albumin Globulin Albumin/Globulin Ratio Vitamin B12 Folate Procalcitonin Nasal Screen MRSA (PCR) Negative COVID-19 Eval Order Hep Bs Antigen Hep Bs Antibody Hep Bs Antibody, Quant Influ A Molecular Assay Influ B Molecular Assay SARS-CoV-2, RNA, NAAT Blood Type Antibody Screen Crossmatch 11/18/20 11/18/20 06:41 08:08 WBC RBC Hgb Hct MCV MCH MCHC RDW Std Deviation RDW Coeff of Casandra Plt Count MPV Immature Gran % (Auto) Neut % (Auto) Lymph % (Auto) Rolette % (Auto) Eos % (Auto) Baso % (Auto) Reticulocyte % (Auto) Neut # (Auto) Lymph # (Auto) Rolette # (Auto) Eos # (Auto) Baso # (Auto) Reticulocyte # Immature Gran # (Auto) Absolute Nucleated RBC Nucleated RBC % (auto) Polychromasia Hypochromasia Anisocytosis PT INR APTT PTT Ratio D-Dimer Sodium 137 Potassium 5.0 Chloride 101 Carbon Dioxide 30 Anion Gap 6.0 BUN 26 H Creatinine 5.85 H* D Est Cr Clr Drug Dosing 9.8 Est GFR ( Amer) 9.3 Est GFR (Non-Af Amer) 8.0 BUN/Creatinine Ratio 4.5 L Glucose 109 H POC Glucose 117 H Calcium 8.6 Magnesium Iron Transferrin Transferrin % Sat Ferritin Total Bilirubin AST ALT Alkaline Phosphatase Lactate Dehydrogenase Total Creatine Kinase Troponin I C-Reactive Protein NT-Pro-B Natriuret Pep Total Protein Albumin Globulin Albumin/Globulin Ratio Vitamin B12 Folate Procalcitonin Nasal Screen MRSA (PCR) COVID-19 Eval Order Hep Bs Antigen Hep Bs Antibody Hep Bs Antibody, Quant Influ A Molecular Assay Influ B Molecular Assay SARS-CoV-2, RNA, NAAT Blood Type Antibody Screen Crossmatch Medications Administered Current Inpatient Medications Acetaminophen (Acetaminophen 325 Mg Tab) 650 mg PO Q4H PRN PRN Reason: Pain or Fever Stop: 12/17/20 16:37 Al Hydrox/Mg Hydrox/Simethicone (Aluminum/Magnesium Susp 30 Ml Udc) 15 ml PO Q4H PRN PRN Reason: Dyspepsia Stop: 12/17/20 16:37 Albuterol (Albut/Ipratrop 3mg/0.5mg Neb 3 Ml Vial) 3 ml NEB QIDR PRN PRN Reason: Shortness Of Breath Or Wheezing Stop: 12/17/20 16:37 Albuterol (Albuterol Hfa 8 Gm Inhaler) 1 puffs INH QIDR PRN PRN Reason: Shortness of breath or wheezing Stop: 12/17/20 18:59 Last Admin: 11/18/20 07:53 Dose: 1 puffs Documented by: Calcium Acetate (Calcium Acetate 667 Mg Cap/Tab) 2,001 mg PO TIDM [facility] Stop: 12/17/20 16:59 Last Admin: 11/18/20 08:27 Dose: 2,001 mg Documented by: Dextrose (Dextrose 50% 50 Ml Syringe) 25 - 50 ml IV UD PRN; Protocol PRN Reason: Hypoglycemia Protocol Stop: 12/17/20 17:29 Diltiazem HCl (Diltiazem Hcl 120 Mg Er Cap) 120 mg PO SuMoWeFr@0900 [facility] Stop: 12/18/20 08:59 Last Admin: 11/18/20 08:28 Dose: 120 mg Documented by: Docusate Sodium (Docusate Sodium 100 Mg Cap) 100 mg PO BID [facility] Stop: 12/17/20 20:59 Last Admin: 11/18/20 08:28 Dose: 100 mg Documented by: Folic Acid (Folic Acid 1 Mg Tab) 1 mg PO QAM [facility] Stop: 12/18/20 08:59 Last Admin: 11/18/20 08:28 Dose: 1 mg Documented by: Glucagon (Glucagon For Inj 1 Mg Vial) 1 mg IM UD PRN; Protocol PRN Reason: Hypoglycemia Protocol Stop: 12/17/20 17:29 Glucose (Glucose 40% Gel 15 Gm Tube) 15 - 30 gm PO UD PRN; Protocol PRN Reason: Hypoglycemia Protocol Stop: 12/17/20 17:29 Glucose (Glucose 10 Tabs/Tube) 4 - 8 tabs PO UD PRN; Protocol PRN Reason: Hypoglycemia Protocol Stop: 12/17/20 17:29 Pantoprazole Sodium 40 mg/ (Syringe) 10 mls @ 5 mls/min IV BID KASSANDRA Stop: 12/17/20 20:59 Last Admin: 11/18/20 08:28 Dose: 5 mls/min Documented by: Sodium Chloride (Nss) 250 mls @ 15 mls/hr IV .[id number] PRN PRN Reason: For Transfusion Stop: 12/17/20 16:37 Sodium Chloride (Nss 1000ml) 1,000 mls @ 0 mls/hr IV .Q0M PRN PRN Reason: For Hemodialysis Use ONLY Stop: 11/19/20 12:59 Iron Sucrose 200 mg/ Syringe 10 mls @ 1 mls/min IV ONE ONE Stop: 11/19/20 07:09 Insulin Aspart (Insulin Aspart 100 Units/Ml 3 Ml Pen) 0 units SC ACHS [facility] Stop: 12/17/20 17:59 Last Admin: 11/18/20 09:16 Dose: 6 units Documented by: Insulin Human NPH (Insulin Human Nph) 35 units SC BIDM [facility] Stop: 12/18/20 09:14 Last Admin: 11/18/20 09:30 Dose: 35 units Documented by: Magnesium Hydroxide (Magnesium Hydroxide Susp 30 Ml Udc) 30 ml PO Q12H PRN PRN Reason: Constipation Stop: 12/17/20 16:37 Metoprolol Tartrate (Metoprolol Tartrate 50 Mg Tab) 50 mg PO SuMoWeFr@0900 [facility] Stop: 12/18/20 08:59 Last Admin: 11/18/20 08:28 Dose: 50 mg Documented by: Metoprolol Tartrate (Metoprolol Tartrate 25 Mg Tab) 25 mg PO HS [facility] Stop: 12/17/20 20:59 Last Admin: 11/17/20 20:35 Dose: 25 mg Documented by: Miscellaneous (Carbohydrates For Hypoglycemia ) 15 - 30 gm PO UD PRN PRN Reason: Hypoglycemia Treatment Stop: 12/17/20 17:29 Miscellaneous (No Heparin In Dialysis) 1 ea N/A ONE ONE Stop: 11/19/20 07:01 Miscellaneous Information (Pharmacy Glycemic Mgmt Consult) 1 ea N/A UD PRN PRN Reason: Consult Stop: 12/17/20 16:56 Nitroglycerin (Nitroglycerin Sl 0.4 Mg/Tab Tab) 0.4 mg SL UD PRN PRN Reason: Chest Pain Stop: 12/17/20 16:37 Ondansetron HCl (Ondansetron Inj 2 Mg/Ml 2 Ml Vial) 4 mg IV Q6H PRN PRN Reason: Nausea Stop: 12/17/20 16:37 Polyethylene Glycol (Polyethylene (Miralax) 17 Gm Pack) 17 gm PO DAILY PRN PRN Reason: Constipation Stop: 12/17/20 16:37 Pravastatin Sodium (Pravastatin Sod 40 Mg Tab) 40 mg PO QPM [facility] Stop: 12/17/20 20:59 Last Admin: 11/17/20 20:35 Dose: 40 mg Documented by: Vitamin B Complex/Folic Acid (Nephrocaps) 1 cap PO QAM KASSANDRA Stop: 12/18/20 08:59 Last Admin: 11/18/20 08:28 Dose: 1 cap Documented by: PG Care Time/CCT Total # of Minutes Spent Total Time Spent with Patient: Total time spent is greater than 50% in coordination of care (as documented) at patient's floor/unit and/or counseling patient: Coding Level of Care Code 56186 Subseq Hosp Care Lvl 3 Diagnoses Pneumonia due to SARS-associated coronavirus J12.81 Cystic-bullous disease of lung J98.4 Chronic GI bleeding K92.2 Anemia D64.9 Type 2 diabetes mellitus E11.9 Paroxysmal atrial tachycardia I47.1 ESRD (end stage renal disease) on dialysis N18.6; Z99.2
--- NOTE | 2020-11-18 10:39 | Nephrology Progress Note ---
Date of Service November 18, 2020 Assessment & Plan (1) End-stage renal disease on hemodialysis: * Patient is back to his outpatient EDW of 91.5 kg. Breathing is subjectively improved. Electrolyte balance is acceptable. No acute indication for HD today. Will schedule next HD for am to maintain outpatient TTS schedule (2) Anemia: * Transfused 2 U PRBC 11/17/20 (3) Pneumonia due to SARS-associated coronavirus: * Patient is subjectively improved following blood transfusion and UF/HD. RA SaO2 96% * Consider Dexamethasone therapy if respiratory status worsens Admission and Anticipated Discharge Date Admission Date: November 17, 2020 Subjective Mr. Madden is on respiratory isolation due to COVID-19 + status. EMR was reviewed and patient was contacted by telephone this morning. Exam held due to isolation status. Mr. Madden was transfused 2 U PRBC yesterday and dialyzed heparin free x 4 hours without complication. 4 L UF obtained. He is now back to his EDW of 91.5 kg. Mr. Madden voices no new medical concerns. Review of Systems Constitutional: + weakness; no fever Respiratory: + dyspnea Results & Data ([facility]) Vital Signs (Past 12 Hours) Vital Signs Temp Pulse Pulse Pulse Resp BP BP 11/18/20 07:54 95 H 18 11/18/20 07:44 97 H 20 144/57 H 11/18/20 07:40 37.0 C 84 18 131/49 L 11/18/20 06:35 75 11/18/20 06:30 98 H 149/47 H 11/18/20 06:15 75 143/54 H 11/18/20 06:00 96 H 153/56 H 11/18/20 05:45 78 149/51 H 11/18/20 05:30 94 H 160/54 H 11/18/20 05:15 103 H 128/54 L 11/18/20 05:00 74 136/52 L 11/18/20 04:45 83 157/43 H 11/18/20 04:30 79 135/55 L 11/18/20 04:15 99 H 132/38 L 11/18/20 04:00 84 145/39 H 11/18/20 03:58 37.4 C 8 L 17 132/55 L 11/18/20 03:45 91 H 150/48 H 11/18/20 03:30 80 149/38 H 11/18/20 03:16 81 156/47 H 11/18/20 03:00 76 132/55 L 11/18/20 02:45 76 143/56 H 11/18/20 02:30 78 146/56 H 11/18/20 02:20 76 11/18/20 02:15 77 137/48 L 11/18/20 02:00 75 140/49 L 11/18/20 01:45 75 127/53 L 11/18/20 01:40 97 H 11/18/20 01:30 82 139/59 L 11/18/20 01:20 96 H 11/18/20 01:15 97 H 142/57 H 11/18/20 01:10 81 11/18/20 01:00 79 137/43 L 11/18/20 00:50 77 11/18/20 00:45 80 137/54 L 11/18/20 00:40 81 11/18/20 00:35 84 136/57 L 11/18/20 00:30 80 11/18/20 00:20 78 11/18/20 00:11 37.2 C 80 17 137/54 L 11/18/20 00:10 89 11/18/20 00:00 85 136/57 L Pulse Ox 11/18/20 07:54 96 11/18/20 07:44 96 11/18/20 07:40 90 11/18/20 06:35 11/18/20 06:30 95 11/18/20 06:15 92 11/18/20 06:00 93 11/18/20 05:45 95 11/18/20 05:30 95 11/18/20 05:15 91 11/18/20 05:00 94 11/18/20 04:45 96 11/18/20 04:30 94 11/18/20 04:15 92 11/18/20 04:00 92 11/18/20 03:58 95 11/18/20 03:45 92 11/18/20 03:30 95 11/18/20 03:16 96 11/18/20 03:00 95 11/18/20 02:45 95 11/18/20 02:30 95 11/18/20 02:20 96 11/18/20 02:15 90 11/18/20 02:00 92 11/18/20 01:45 93 11/18/20 01:40 93 11/18/20 01:30 93 11/18/20 01:20 95 11/18/20 01:15 94 11/18/20 01:10 96 11/18/20 01:00 97 11/18/20 00:50 94 11/18/20 00:45 94 11/18/20 00:40 94 11/18/20 00:35 94 11/18/20 00:30 94 11/18/20 00:20 91 11/18/20 00:11 94 11/18/20 00:10 91 11/18/20 00:00 96 PG Care Time/CCT Total # of Minutes Spent Total Time Spent with Patient: Total time spent is greater than 50% in coordination of care (as documented) at patient's floor/unit and/or counseling patient: Coding Diagnoses End-stage renal disease on hemodialysis N18.6; Z99.2 Anemia D64.9 Anemia type: unspecified type Pneumonia due to SARS-associated coronavirus J12.81 (1) Anemia Anemia type: unspecified type Qualified Code(s): D64.9 - Anemia, unspecified
--- NOTE | 2020-11-18 13:09 | Pharmacy Report ---
Pharmacy Glycemic Short Note 2 - Date of Service November 18, 2020 - Glycemic Short BSG Results (Last 24 hours): 11/17/20 11/17/20 11/18/20 17:44 20:28 06:41 Glucose 109 H POC Glucose 80 114 H 11/18/20 11/18/20 08:08 11:19 Glucose POC Glucose 117 H 165 H OUTPATIENT ANTIDIABETIC REGIMEN: * Novolog 70/30 SQ BID: * 72 units w/ breakfast + 74 units w/ dinner on days of dialysis * 80 units w/ breakfast + 74 units w/ dinner on non-dialysis days ASSESSMENT: * Type 2 diabetic admitted for COVID19 viral pneumonia, anemia, weakness, and SOB * Patient was using 70/30 insulin prior to admission however this insulin will be converted to NPH + Novolog to allow for greater titration flexibility and less risk of hypoglycemia with changing PO intake while hospitalized * 35 units NPH given last evening. Fasting BSG at goal this AM. Prior hospitalizations reviewed, it appears that patient may require substantially less insulin while hospitalized. Question compliance with outpt regimen? Bas al doses will be reduced substantially PLAN FOR INPATIENT GLYCEMIC CONTROL: * Hold outpatient medication (70/30 Novolog) * Basal insulin * NPH 35 units SQ BID w/ meals * Bolus insulin * NovoLog per scale ACHS or Q6hrs while NPO * Goal Range: Low 110 mg/dL - High 140 mg/dL * Correction Factor: 15 mg/dL/unit * Nutritional / Prandial insulin per carb ratio of 1 unit per 5 grams CHO consumed PLAN FOR DISCHARGE: * to be determined
[2020-11-18] MEDS: PRAVASTATIN SOD 40 MG TAB PO SCH (20:40)
[2020-11-18] MEDS: METOPROLOL TARTRATE 25 MG TAB PO SCH (20:40)
[2020-11-19] MEDS ORDERED: IRON SUCROSE 200 MG in SYRINGE 0 ML IV SCH (07:00)
[2020-11-19] MEDS ORDERED: SODIUM CHLORIDE 0.9% 1000ML 1,000 ML IV PRN (07:00)
[2020-11-19] MEDS ORDERED: INSULIN HUMAN NPH SC SCH ×2 (07:30→16:30)
[2020-11-19 07:56] LABS: BUN Creatinine Ratio 6.3 (10-20); Calcium 8.8 mg/dl (8.5-10.1); Creatinine Clr Calc Pharmacy 7.3 ml/min; Est GFR (African American) 6.3; Est GFR (Non-African American) 5.5; Potassium 4.7 mmol/L (3.5-5.1)
[2020-11-19] MEDS: PANTOprazole 40 MG in SYRINGE 0 ML IV SCH ×2 (08:17→21:17)
[2020-11-19] MEDS: FOLIC ACID 1 MG TAB PO SCH (08:19)
[2020-11-19] MEDS: DOCUSATE SODIUM 100 MG CAP PO SCH ×2 (08:19→21:15)
[2020-11-19] MEDS: NEPHROCAPS PO SCH (08:19)
[2020-11-19] MEDS: CALCIUM ACETATE 667 MG CAP/TAB PO SCH ×3 (08:20→17:20)
[2020-11-19] MEDS: INSULIN ASPART 100 UNITS/ML 3 ML PEN SC SCH ×4 (08:59→21:16)
[2020-11-19] MEDS ORDERED: ASPIRIN 81 MG ECTAB PO SCH (09:00)
--- NOTE | 2020-11-19 09:23 | Nephrology Progress Note ---
Date of Service November 19, 2020 Assessment & Plan (1) End-stage renal disease on hemodialysis: ESRD on HD, admitted with SOB,anemia, volume overload and COVID. Overall doing well. Received 2 PRBC --HD today as regular schedule --OK to DC, scheduled fro HD at isolation clinic after discharge. Will follow (2) Anemia: (3) COVID-19: (4) Hypertension: Admission and Anticipated Discharge Date Admission Date: November 17, 2020 Subjective Isidro was evaluated and discussed via telephone. Overall doing well, denies SOB, F/C. Review of Systems Review of Systems: All systems reviewed & are unremarkable except as noted in Subjective Results & Data ([facility]) Vital Signs (Past 12 Hours) Vital Signs Temp Pulse Pulse Resp BP BP Pulse Ox 11/19/20 07:55 37.0 C 67 20 160/54 H 96 11/19/20 06:20 69 94 11/19/20 06:00 63 93 11/19/20 05:40 70 96 11/19/20 05:20 72 93 11/19/20 05:00 72 95 11/19/20 04:40 65 87 L 11/19/20 04:20 83 94 11/19/20 04:00 70 148/55 H 94 11/19/20 03:40 65 93 11/19/20 03:35 36.9 C 66 87 18 154/62 H 154/62 H 94 11/19/20 03:20 66 95 11/19/20 03:00 69 95 11/19/20 02:40 67 96 11/19/20 02:20 61 94 11/19/20 02:00 77 91 11/19/20 01:40 67 92 11/19/20 01:20 71 93 11/19/20 01:00 80 93 11/19/20 00:40 66 93 11/19/20 00:20 68 93 11/19/20 00:00 89 145/52 H 89 L 11/18/20 23:40 67 92 11/18/20 23:39 37.0 C 67 67 16 136/58 L 136/58 L 90 11/18/20 23:20 87 93 11/18/20 23:00 73 93 11/18/20 22:40 87 95 11/18/20 22:20 72 95 11/18/20 22:00 70 94 11/18/20 21:40 68 95 PG Care Time/CCT Total # of Minutes Spent Total Time Spent with Patient: Total time spent is greater than 50% in coordination of care (as documented) at patient's floor/unit and/or counseling patient: Coding Level of Care Code 86757 Subseq Hosp Care Lvl 2 Diagnoses End-stage renal disease on hemodialysis N18.6; Z99.2 Anemia D64.9 COVID-19 U07.1 Hypertension I10 Hypertension type: essential hypertension (1) Hypertension Hypertension type: essential hypertension Qualified Code(s): I10 - Essential (primary) hypertension
--- NOTE | 2020-11-19 10:35 | Pharmacy Report ---
Glycemic Control Progress Note - Date of Service November 19, 2020 - Scope Glycemic Pharmacist consulted for glycemic control to write orders per [facility] inpatient glycemic control protocol. - Objective Accuchecks BSG(last 24 hours):: 11/18/20 11/18/20 11/18/20 11:19 16:34 20:22 Glucose POC Glucose 165 H 148 H 110 H 11/19/20 11/19/20 06:42 08:24 Glucose 74 POC Glucose 82 - Recent Pertinent Medications The patient is currently receiving: * Basal insulin: NPH 35 units BIDM * Correctional Insulin: Novolog Correction per scale ACHS Goal Range: Low 110 mg/dL - High 140 mg/dL Correction Factor: 15 mg/dL/unit * Prandial insulin: Per carb ratio of 1 unit per 5 grams CHO consumed - Outpatient Anti-Diabetic Meds Novolog 70/30 --> on dialysis days: 72 units in the morning and 74 units in the evening on non-dialysis days: 80 units in the morning and 74 units in the evening - Assessment & Plan ASSESSMENT: * See progress note from 11/18/20 for more background info, in short: * Pt receiving SQ basal bolus insulin regimen for hyperglycemia secondary to baseline DM (outpatient regimen on hold). Patient to receive dialysis today. * Patient is currently receiving an average of 98 units of insulin per day * 70 units of basal insulin * 28 units of prandial/correctional insulin * BSGs ranging 110 - 165 mg/dl over the past 24hrs * Changes needed to insulin regimen: * AM Fasting BSG = 82 mg/dl. This is below goal range for patient based on inpatient targets and co-morbidities. Therefore evening NPH will be reduced by 20%. Morning dose okay to continue. * Post-prandial BSGs are in range therefore no changes needed to CF/CR. * Total daily dose = 90-100 units. Reduced basal insulin slightly. PLAN FOR INPATIENT GLYCEMIC CONTROL: * Decreasing NPH to 35 units SQ in the morning and 28 units in the evening * Continuing correction factor of 15 mg/dl/unit * Continuing carb ratio of 1 unit per 5 grams CHO consumed * Continuing goal range of Low 110 mg/dL - High 140 mg/dL RECOMMENDATIONS FOR DISCHARGE: * Patient is a dialysis patient with anemia so it is difficult to determine glycemic control from A1C. * Recommend continuing follow-up with PCP and diabetes specialists to optimize glycemic control. Patient's goal HbA1C ~ 8%. Thank you.
--- NOTE | 2020-11-19 10:59 | Hospitalist Progress Note ---
Date of Service November 19, 2020 Assessment & Plan (1) COVID-19: no signs of pneumonia on chest x-ray, lungs clear, breathing well on room air would classify more as COVID 19 infection no dexamethasone, no Remdesivir due to COVID he will need to get HD at [facility], transport has been arranged -- Code status is DNR/DNI. (2) Cystic-bullous disease of lung: -- Duoneb nebulizer treatments. -- Continue usual inhalers. 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 -- Hgb is 7.6 g/dL on admission, received two units with HD Hb up to 9 on 11/18, no further blood needed (4) Anemia: -- Anemia related to both chronic GI blood loss and CKD. -- Hb up to 9 on 11/18 (5) Type 2 diabetes mellitus: -- Glycemic Consult placed. -- BSG checks. -- Diabetic/Renal diet ordered. monitor for hypoglycemia, no episodes (6) Paroxysmal atrial tachycardia: -- Continue Metoprolol Tartrate as ordered. -- Continue Diltiazem XT as ordered. (7) ESRD (end stage renal disease) on dialysis: HD on 11/17 and plan for HD on 11/19 CM arranged for transportation to [facility] due to COVID 19 status this will start on Wednesday 11/22 discharge to home on 11/20 as long as he remains stable Admission and Anticipated Discharge Date Admission Date: November 17, 2020 Subjective patient feeling great this morning, waiting on HD to start he is eating well, breathing well, no cough, no fever/chills discussed plans to go home tomorrow morning, he agrees and feels like he is ready electrolytes stable today Review of Systems Review of Systems: All systems reviewed & are unremarkable except as noted in Subjective Physical Exam Constitutional: WD/WN, vitals as above Eyes: PERRL, conjunctivae normal, anicteric sclerae Neck: trachea midline, no thyromegaly Respiratory: normal respiratory effort, lungs clear to auscultation Cardiovascular: RRR, no murmur, no edema Gastrointestinal (Abdomen): normal bowel sounds, soft, nontender, no hepatosplenomegaly Musculoskeletal: no cyanosis or clubbing, extremities motor strength 5/5 Skin: no rashes, warm and dry Neurologic: patellar DTR's 2+ bilat, sensation intact and PERRL, EOMI, accommodation nl, no face palsy, no dysarthria Psychiatric: A+Ox3, euthymic affect Lymphatic: no cervical or axillary lymphadenopathy Results & Data Results & Data ([facility]) Vital Signs (Past 12 Hours) Vital Signs Temp Pulse Pulse Resp BP BP Pulse Ox 11/19/20 10:14 60 11/19/20 07:55 37.0 C 67 20 160/54 H 96 11/19/20 06:20 69 94 11/19/20 06:00 63 93 11/19/20 05:40 70 96 11/19/20 05:20 72 93 11/19/20 05:00 72 95 11/19/20 04:40 65 87 L 11/19/20 04:20 83 94 11/19/20 04:00 70 148/55 H 94 11/19/20 03:40 65 93 11/19/20 03:35 36.9 C 66 87 18 154/62 H 154/62 H 94 11/19/20 03:20 66 95 11/19/20 03:00 69 95 11/19/20 02:40 67 96 11/19/20 02:20 61 94 11/19/20 02:00 77 91 11/19/20 01:40 67 92 11/19/20 01:20 71 93 11/19/20 01:00 80 93 11/19/20 00:40 66 93 11/19/20 00:20 68 93 11/19/20 00:00 89 145/52 H 89 L 11/18/20 23:40 67 92 11/18/20 23:39 37.0 C 67 67 16 136/58 L 136/58 L 90 11/18/20 23:20 87 93 11/18/20 23:00 73 93 Laboratory Results Laboratory Results - last 24 hr 11/18/20 11/18/20 11/18/20 11:19 16:34 20:22 Sodium Potassium Chloride Carbon Dioxide Anion Gap BUN Creatinine Est Cr Clr Drug Dosing Est GFR ( Amer) Est GFR (Non-Af Amer) BUN/Creatinine Ratio Glucose POC Glucose 165 H 148 H 110 H Calcium 11/19/20 11/19/20 06:42 08:24 Sodium 136 Potassium 4.7 Chloride 99 Carbon Dioxide 27 Anion Gap 10.0 BUN 51 H D Creatinine 8.03 H* D Est Cr Clr Drug Dosing 7.3 Est GFR ( Amer) 6.3 Est GFR (Non-Af Amer) 5.5 BUN/Creatinine Ratio 6.3 L Glucose 74 POC Glucose 82 Calcium 8.8 Medications Administered Current Inpatient Medications Acetaminophen (Acetaminophen 325 Mg Tab) 650 mg PO Q4H PRN PRN Reason: Pain or Fever Stop: 12/17/20 16:37 Al Hydrox/Mg Hydrox/Simethicone (Aluminum/Magnesium Susp 30 Ml Udc) 15 ml PO Q4H PRN PRN Reason: Dyspepsia Stop: 12/17/20 16:37 Albuterol (Albut/Ipratrop 3mg/0.5mg Neb 3 Ml Vial) 3 ml NEB QIDR PRN PRN Reason: Shortness Of Breath Or Wheezing Stop: 12/17/20 16:37 Albuterol (Albuterol Hfa 8 Gm Inhaler) 1 puffs INH QIDR PRN PRN Reason: Shortness of breath or wheezing Stop: 12/17/20 18:59 Last Admin: 11/18/20 07:53 Dose: 1 puffs Documented by: Calcium Acetate (Calcium Acetate 667 Mg Cap/Tab) 2,001 mg PO TIDM [facility] Stop: 12/17/20 16:59 Last Admin: 11/19/20 08:20 Dose: 2,001 mg Documented by: Dextrose (Dextrose 50% 50 Ml Syringe) 25 - 50 ml IV UD PRN; Protocol PRN Reason: Hypoglycemia Protocol Stop: 12/17/20 17:29 Diltiazem HCl (Diltiazem Hcl 120 Mg Er Cap) 120 mg PO SuMoWeFr@0900 [facility] Stop: 12/18/20 08:59 Last Admin: 11/18/20 08:28 Dose: 120 mg Documented by: Docusate Sodium (Docusate Sodium 100 Mg Cap) 100 mg PO BID [facility] Stop: 12/17/20 20:59 Last Admin: 11/19/20 08:19 Dose: 100 mg Documented by: Folic Acid (Folic Acid 1 Mg Tab) 1 mg PO QAM [facility] Stop: 12/18/20 08:59 Last Admin: 11/19/20 08:19 Dose: 1 mg Documented by: Glucagon (Glucagon For Inj 1 Mg Vial) 1 mg IM UD PRN; Protocol PRN Reason: Hypoglycemia Protocol Stop: 12/17/20 17:29 Glucose (Glucose 40% Gel 15 Gm Tube) 15 - 30 gm PO UD PRN; Protocol PRN Reason: Hypoglycemia Protocol Stop: 12/17/20 17:29 Glucose (Glucose 10 Tabs/Tube) 4 - 8 tabs PO UD PRN; Protocol PRN Reason: Hypoglycemia Protocol Stop: 12/17/20 17:29 Pantoprazole Sodium 40 mg/ (Syringe) 10 mls @ 5 mls/min IV BID [facility] Stop: 12/17/20 20:59 Last Admin: 11/19/20 08:17 Dose: 5 mls/min Documented by: Sodium Chloride (Nss) 250 mls @ 15 mls/hr IV .[id number] PRN PRN Reason: For Transfusion Stop: 12/17/20 16:37 Sodium Chloride (Nss 1000ml) 1,000 mls @ 0 mls/hr IV .Q0M PRN PRN Reason: For Hemodialysis Use ONLY Stop: 11/19/20 12:59 Iron Sucrose 200 mg/ Syringe 10 mls @ 1 mls/min IV TODAY@0700 [facility] Stop: 11/19/20 18:00 Insulin Aspart (Insulin Aspart 100 Units/Ml 3 Ml Pen) 0 units SC ACHS [facility] Stop: 12/17/20 17:59 Last Admin: 11/19/20 08:59 Dose: 8 units Documented by: Insulin Human NPH (Insulin Human Nph) 35 units SC QDB [facility] Stop: 12/19/20 07:29 Last Admin: 11/19/20 08:59 Dose: 35 units Documented by: Insulin Human NPH (Insulin Human Nph) 28 units SC QDD [facility] Stop: 12/19/20 16:29 Magnesium Hydroxide (Magnesium Hydroxide Susp 30 Ml Udc) 30 ml PO Q12H PRN PRN Reason: Constipation Stop: 12/17/20 16:37 Metoprolol Tartrate (Metoprolol Tartrate 50 Mg Tab) 50 mg PO SuMoWeFr@0900 [facility] Stop: 12/18/20 08:59 Last Admin: 11/18/20 08:28 Dose: 50 mg Documented by: Metoprolol Tartrate (Metoprolol Tartrate 25 Mg Tab) 25 mg PO HS [facility] Stop: 12/17/20 20:59 Last Admin: 11/18/20 20:40 Dose: 25 mg Documented by: Miscellaneous (Carbohydrates For Hypoglycemia ) 15 - 30 gm PO UD PRN PRN Reason: Hypoglycemia Treatment Stop: 12/17/20 17:29 Miscellaneous Information (Pharmacy Glycemic Mgmt Consult) 1 ea N/A UD PRN PRN Reason: Consult Stop: 12/17/20 16:56 Nitroglycerin (Nitroglycerin Sl 0.4 Mg/Tab Tab) 0.4 mg SL UD PRN PRN Reason: Chest Pain Stop: 12/17/20 16:37 Ondansetron HCl (Ondansetron Inj 2 Mg/Ml 2 Ml Vial) 4 mg IV Q6H PRN PRN Reason: Nausea Stop: 12/17/20 16:37 Polyethylene Glycol (Polyethylene (Miralax) 17 Gm Pack) 17 gm PO DAILY PRN PRN Reason: Constipation Stop: 12/17/20 16:37 Pravastatin Sodium (Pravastatin Sod 40 Mg Tab) 40 mg PO QPM [facility] Stop: 12/17/20 20:59 Last Admin: 11/18/20 20:40 Dose: 40 mg Documented by: Vitamin B Complex/Folic Acid (Nephrocaps) 1 cap PO QAM [facility] Stop: 12/18/20 08:59 Last Admin: 11/19/20 08:19 Dose: 1 cap Documented by: PG Care Time/CCT Total # of Minutes Spent Total Time Spent with Patient: Total time spent is greater than 50% in coordination of care (as documented) at patient's floor/unit and/or counseling patient: Coding Level of Care Code 62618 Subseq Hosp Care Lvl 2 Diagnoses COVID-19 U07.1 Cystic-bullous disease of lung J98.4 Chronic GI bleeding K92.2 Anemia D64.9 Type 2 diabetes mellitus E11.9 Paroxysmal atrial tachycardia I47.1 ESRD (end stage renal disease) on dialysis N18.6; Z99.2
[2020-11-19] MEDS ORDERED: INSULIN HUMAN NPH SC ONE (17:00)
[2020-11-19] MEDS: METOPROLOL TARTRATE 25 MG TAB PO SCH (21:15)
[2020-11-19] MEDS: PRAVASTATIN SOD 40 MG TAB PO SCH (21:15)
[2020-11-20] MEDS: PANTOprazole 40 MG in SYRINGE 0 ML IV SCH (08:19)
[2020-11-20] MEDS: FOLIC ACID 1 MG TAB PO SCH (08:19)
[2020-11-20] MEDS: DOCUSATE SODIUM 100 MG CAP PO SCH (08:19)
[2020-11-20] MEDS: CALCIUM ACETATE 667 MG CAP/TAB PO SCH (08:19)
[2020-11-20] MEDS: METOPROLOL TARTRATE 50 MG TAB PO SCH (08:20)
[2020-11-20] MEDS: NEPHROCAPS PO SCH (08:20)
[2020-11-20 08:41] LABS: BUN Creatinine Ratio 5.1 (10-20); Calcium 8.7 mg/dl (8.5-10.1); Creatinine Clr Calc Pharmacy 11.2 ml/min; Est GFR (African American) 10.8; Est GFR (Non-African American) 9.3; Potassium 4.5 mmol/L (3.5-5.1)
--- NOTE | 2020-11-20 09:24 | Discharge Summary ---
Date of Service November 20, 2020 Admission HPI Per Admitting Provider Mr. 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 Patient lives with his grandson who recently had coronavirus. He was seen at dialysis earlier today but was not dialyzed due to his SOB, COVID exposure, and a lower than usual Hgb of 7.6 g/dL today. He feels generally weak at this time -- but he typically feels weak when his Hgb is low. Patient denies any fever, chills, nausea, vomiting, or diarrhea. He does admit to having dark stools about 3 weeks ago but they have normalized. He states that he is not bleeding currently. He denies any abdominal pain. He denies any chest pain, heaviness, tightness, or pressure. No pleuritic chest pain. No hemoptysis. No loss of taste or sense of smell. No headache or stiff neck. Appetite is at baseline. No upper respiratory symptoms. Patient does not take Metoprolol or Diltiazem on the mornings of dialysis due to hypotension. Principal Diagnosis Symptomatic anemia causing dyspnea Discharge Exam Constitutional WD/WN, vitals as above Eyes PERRL, conjunctivae normal, anicteric sclerae Neck trachea midline, no thyromegaly Respiratory normal respiratory effort, lungs clear to auscultation Cardiovascular RRR, no murmur, no edema Gastrointestinal (Abdomen) normal bowel sounds, soft, nontender, no hepatosplenomegaly Musculoskeletal no cyanosis or clubbing, extremities motor strength 5/5 Skin no rashes, warm and dry Neurologic patellar DTR's 2+ bilat, sensation intact and PERRL, EOMI, accommodation nl, no face palsy, no dysarthria Psychiatric A+Ox3, euthymic affect Lymphatic no cervical or axillary lymphadenopathy Discharge Data Allergies Allergy/AdvReac Type Severity Reaction Status Date / Time clarithromycin AdvReac Intermediate confusion Verified 11/17/20 11:34 fish oil AdvReac Intermediate hx of Verified 11/17/20 11:34 hemorrhage in past Sulfa (Sulfonamide AdvReac Intermediate severe Verified 11/17/20 11:34 Antibiotics) agitation/delirium Consultations 11/17/20 12:03 ED Decision to Admit Stat 11/17/20 17:31 Consult Nephrology Routine Hospital Course (1) COVID-19: no signs of pneumonia on chest x-ray, lungs clear, breathing well on room air would classify more as COVID 19 infection no dexamethasone, no Remdesivir due to COVID he will need to get HD at [facility], transport has been arranged -- Code status is DNR/DNI. (2) Cystic-bullous disease of lung: -- Duoneb nebulizer treatments. -- Continue usual inhalers. 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 -- Hgb is 7.6 g/dL on admission, received two units with HD Hb up to 9 on 11/18, no further blood needed (4) Anemia: symptomatic with dyspnea, resolved after transfusion and Hb up to 9 -- Anemia related to both chronic GI blood loss and CKD. -- Hb up to 9 on 11/18 (5) Type 2 diabetes mellitus: -- Glycemic Consult placed. -- BSG checks. -- Diabetic/Renal diet ordered. monitor for hypoglycemia, no episodes (6) Paroxysmal atrial tachycardia: -- Continue Metoprolol Tartrate as ordered. -- Continue Diltiazem XT as ordered. (7) ESRD (end stage renal disease) on dialysis: HD on 11/17 and plan for HD on 11/19 CM arranged for transportation to [facility] due to COVID 19 status this will start on Wednesday 11/22 discharge to home on 11/20 as long as he remains stable Total Time Total Time Spent Total Time Spent (In Minutes): 31 Total Time Includes: Examination of the Patient, Discharge Planning, Medication Reconciliation and Communication With Other Providers (nephrology and case management) Discharge Plan Discharge Items Patient Disposition: Home - Self-Care Reason For Visit: Anemia Discharge Diagnosis: Anemia ESRD on hemodialysis COVID 19 positive Condition on Discharge: Good Goals: stay well rested, well nourished follow up for hemodialysis as scheduled on Saturday Activity: Resume your previous activity Non-emergency contact: Primary Care Provider Call non-emergency contact if: you have any medication questions and your symptoms worsen Follow-up/Referrals: Noel Raymundo MD [Primary Care Provider] - Diet: Carb Consistent or DM2 and Dialysis Renal Addtl Attending Provider Instructions: Medications: no changes made, continue prior home regimen Shortness of breath, weakness, likely caused by worsening anemia, hemoglobin down to 7.6 known issue of chronic GI bleeding, no evidence of acute GI bleeding transfused two units of packed red blood cells on admission with hemodialysis hemoglobin up to > 9 on 11/19, vitals stable Received hemodialysis on and Saturday while here at the hospital case management has arranged for transportation to [facility] starting on Saturday this is only temporary plan due to testing positive for COVID you will continue to go there per protocol until they determine you can resume at clinic in [place] COVID 19: no evidence of pneumonia, no hypoxia, no infiltrates on chest x-ray based on story, it sounds like you have had COVID infection for about one week typically CDC recommends isolation for 10-14 days I would recommend that you continue with isolation/quarantine until end of this week, 11/25/20 wear a mask whenever you leave the house Pending Studies at Discharge: No Stand-Alone Forms: [facility] m[employer]eller, Smoking Cessation Medications and DC Order Prescriptions: Continued aspirin 81 mg tablet,delayed release (DR/EC) 81 mg PO [id number] Qty: 270 RF: 3 (DME) pen needle, diabetic [BD Ultra-Fine Tiffanie Pen Needle] 32 gauge x 5/32" needle See Rx Instructions .ROUTE .MEDSUPPLY Qty: 200 RF: 3 pravastatin [Pravachol] 40 mg tablet 40 mg PO QPM Qty: 90 RF: 3 (DME) blood sugar diagnostic [OneTouch Ultra Blue Test Strip] Strip See Rx Instructions .ROUTE .MEDSUPPLY Qty: 300 RF: 3 folic acid 1 mg tablet 1 mg PO QAM Qty: 90 RF: 3 (DME) lancets [FreeStyle Lancets] 28 gauge misc See Rx Instructions .ROUTE .MEDSUPPLY Qty: 200 RF: 3 calcium acetate(phosphat bind) 667 mg capsule 2,001 mg PO TIDM RF: 0 ProRenal 8 mg iron-800 mcg-1,000 unit tablet 1 tab PO QAM RF: 0 (DME) Altera Nebulizer Misc See Rx Instructions .ROUTE .MEDSUPPLY Qty: 1 RF: 0 albuterol sulfate [Ventolin HFA] 90 mcg/actuation HFA aerosol inhaler 1 puff INH QID Qty: 18 RF: 2 diltiazem HCl 120 mg capsule,extended release 24hr 120 mg PO QAM Qty: 90 RF: 3 metoprolol tartrate 25 mg Tablet 25 mg PO HS RF: 0 insulin asp prt-insulin aspart [Novolog Mix 70-30 U-100 Insuln] 100 unit/mL (70-30) solution 0 unit subcut BID RF: 0 metoprolol tartrate 25 mg tablet 50 mg PO QAM RF: 0 Colace Clear 50 mg Capsule 50 mg PO BID RF: 0 Discharge Orders: Discharge Order (Routine); Ordered 11/20/20 Ordered By: Stan Sesay Admission Data Admit Date/Time: 11/17/20 13:47 Attending Provider: Stan Sesay Admit Provider: Chencho Coronel Primary Care Provider: Noel Raymundo Other Providers: Chencho Coronel ; Roselyn Cruz ; Luis Armando Ulloa ; Chencho Leach ; Rehana Acosta ; Sherwin Doyle Coding Level of Care Code D/C Day Management >30 mins Diagnoses COVID-19 U07.1 Cystic-bullous disease of lung J98.4 Chronic GI bleeding K92.2 Anemia D64.9 Type 2 diabetes mellitus E11.9 Paroxysmal atrial tachycardia I47.1 ESRD (end stage renal disease) on dialysis N18.6; Z99.2
[2020-11-21] MEDS ORDERED: INSULIN HUMAN NPH SC SCH (07:30)
== END 2020-11-20 09:51 | disposition home or self-care (01) | DRG 177 ==
LOC: ED 10:30 → SUATTDRO 13:47 → 2E 13:47
DX: Z85.46 Personal history of malignant neoplasm of prostate; N18.6 End stage renal disease; I12.0 Hypertensive chronic kidney disease with stage 5 chronic kidney disease or end stage renal disease; E11.9 Type 2 diabetes mellitus without complications; I47.1 Supraventricular tachycardia; Z99.2 Dependence on renal dialysis; D63.1 Anemia in chronic kidney disease; J98.4 Other disorders of lung; U07.1 COVID-19; Z66 Do not resuscitate; I25.10 Atherosclerotic heart disease of native coronary artery without angina pectoris; E78.5 Hyperlipidemia, unspecified; Z79.4 Long term (current) use of insulin; E04.2 Nontoxic multinodular goiter

== ENCOUNTER 2021-05-16 19:35 | Observation (INO) ==
--- NOTE | 2021-05-16 20:08 | Emergency Department Note ---
Impression & Plan Anemia, ESRD (end stage renal disease) on dialysis, UTI (urinary tract infection), Chronic GI bleeding, Breathlessness ED Provider Note Provider: Maximo Mccloud MD DATE OF SERVICE: 05/16/2021 CHIEF COMPLAINT: Short of breath, chest pain, low hemoglobin HISTORY OF PRESENT ILLNESS: Patient is a 86-year-old gentleman past medical history of ESRD on dialysis, diabetes, pulmonary hypertension, cirrhosis, cystic bullous disease of the lung, chronic GI bleed presenting here today via ambulance with reports of feeling more short of breath and an episode of chest pain. States he was in recliner earlier and had about half hour central chest pain. This is resolved at this time. States he feels a bit more short of breath. Does report he felt little bit dizzy earlier this morning before dial ysis. Did have the entire completed session of dialysis. REVIEW OF SYSTEMS: A total of 10 review of systems was obtained and negative except as stated above in the HPI. PAST MEDICAL HISTORY: As noted above MEDICATIONS:Reviewed home medication list SOCIAL HISTORY: Lives at home with grandson PHYSICAL EXAM: GENERAL: alert and oriented in no acute distress on stretcher Head: normocephalic and atraumatic EYES: No injection, discharge or icterus. NECK: Trachea midline. LUNGS: Airway patent. No retractions. Breath sounds clear HEART: Irregular rate and rhythm. No chest wall tenderness ABDOMEN: Soft and non-tender, without guarding or rebound. SKIN: Acyanotic, warm, dry, without rashes EXTREMITIES: Without swelling, tenderness or deformity with a right upper extremity fistula in place with good thrill. There is minimal bilateral pedal edema NEUROLOGICAL: No focal deficits. No aphasia. No facial droop or slurred speech. EK bpm question of atrial fibrillation without acute ST segment elevation or depression. Compared to previous from May 09 of this year appears a more r egular like A. fib then clear P waves is normal sinus. CONTINUOUS CARDIAC MONITORING: was ordered and showed a heart rate of 70s-90s bpm in appears to be atrial fibrillation Patient's laboratory studies and imaging reviewed. Differential includes Infection, dehydration, metabolic abnormality, hypo /hyperglycemia, electrolyte disturbance, anemia, hypoxia, cardiac sources, intracerebral event, toxicologic, neurologic, as well as other pathologies. IMPRESSION/MEDICAL DECISION MAKING: Patient with history of chronic kidney disease on ESRD as well as chronic GI bleed now with downtrending hemoglobin under 8. Patient more short of breath and had a transient episode of chest pain earlier. Not hypoxic here. No evidence of congestive failure or pneumonia on the x-ray. Troponin here is NOT elevated and no acute evidence of STEMI. Question of some A. fib today and is rate controlled at this point. Do not believe there is any indication for anticoagulation given his chronic GI bleeds. Patient states he is a history of some atrial tachycardias. Consented and ordered a unit of red blood cells given his symptomatic anemia. No believe severe active GI bleed at this point. Patient in no obvious distress at this point. No evidence of pneumonia or infectious source. Covid test was negative. Reviewed recent outpatient urine culture as the patient makes a small amount of urine every day and this did grow Proteus which has no sensitivity to the Keflex has been on. Given a dose of c efepime here for this after discussion with pharmacy. Given this as well as his need for transfusion with his comorbidities feel the monitoring overnight to ensure resolution of his symptoms and stability after receiving the blood is reasonable and the patient was in agreement. The hospitalist was contacted. DIAGNOSIS: Anemia, SOB, UTI, ESRD on dialysis, chronic GI bleed DISPOSITION: Hospitalist will evaluate Patient was agreeable with this plan. Critical Care I have personally spent 32 minutes of critical care time in the direct management of this patient. This includes bedside care, interpretation of diagnostic studies, and testing, discussion with consultants, patient, and other required patient management activities. These 32 minutes is in excess of all separately billable procedures. 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 COVID-19 Diabetic neuropathy Dyslipidemia Emphysema lung suggested per CXR End-stage renal disease on hemodialysis DIALYSIS SATURDAY/SATURDAY/SATURDAY AT [facility] VIA PERMACATH GAVE (gastric antral vascular ectasia) Gout Hearing deficit LEFT History of blood transfusion 2/2 GIB felt r/t radiation therapy s/p total of 6 units PRBC's since 10/2018 Hypertension Non-occlusive coronary artery disease Nontoxic multinodular goiter Osteoarthritis Prostate cancer S/P SURGERY, XRT Prostate cancer Pulmonary nodules UNDER SURVEILLANCE T2DM (type 2 diabetes mellitus) Thrombocytopenia Transient ischemic attack (TIA) 2014--no deficits, no neurologist Surgical History Amputation of left little finger H/O prostatectomy History of arthroscopy LEFT KNEE History of bowel resection BOWEL LACERATION DURING ATTEMPTING POLYPECTOMY History of cardiac cath X3 = NO STENTS History of cataract surgery RIGHT/LEFT History of colonoscopy History of esophagogastroduodenoscopy (EGD) + CAUTERIZATION (2/2 GIB) History of surgery fistulogram with Dr. Hanna through Right AV fistula 08/17/19 History of tooth extraction S/P arteriovenous (AV) fistula creation LEFT S/P arteriovenous (AV) fistula creation right 05/[address] Hanna S/P dialysis catheter insertion Permcath + attempted thrombectomy: 04/2019: MAC sedation at [facility] Family History Father Family history of diabetes mellitus Hypertension Brother Prostate cancer Mother Heart disease Hypertension Denies family history of Ovarian cancer Breast cancer Lung cancer Colorectal cancer Social History (Updated 05/15/21 @ 10:41 by VIPUL Islas) Smoking Status: Never smoker Second Hand Exposure: No; Do You Dip or Chew Tobacco: No; Tobacco Cessation Education Requested by Patient: No Hx Alcohol Use: No Hx Substance Use: No Preferred Language: Hebrew Communication Ability: Effective Visual Impairment: No Limitations Hearing Ability: Use of Hearing Aid 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 Beliefs That Will Affect Care: None marital status: Current Living Situation: Other Current Living Situation Comment: Lives with Grandson current occupational status: retired How many Children do You have: 1 Other Information That Helps Us Care for You: No Feels Safe at Home: No Is there a partner from a previous relationship who is making you feel unsafe now?: No Any Concerns about Your Family Situation: No Would You Like to Speak to Someone About Your Situation: No Childhood Exposure to Second-Hand Smoke: Yes Diet Comment: regular caffeine: Yes (coffee, once in a while) during the past year weight has: remained stable Dental Care, Regularly: Yes Physical Activity Frequency: Does not Exercise Seatbelt Use: always Sunscreen Use: No Assistive Devices: Walker Allergies Allergies Allergy/AdvReac Type Severity Reaction Status Date / Time clarithromycin AdvReac Intermediate confusion Verified 05/16/21 20:10 fish oil AdvReac Intermediate hx of Verified 05/16/21 20:10 hemorrhage in past Sulfa (Sulfonamide AdvReac Intermediate severe Verified 05/16/21 20:10 Antibiotics) agitation/delirium Home Meds Home Medications Medication Instructions Recorded Confirmed vit B complx, C-iron 8 mg-folic 1 tab PO QAM tab 03/05/19 05/16/21 acid 800 mcg-D3 1,000 unit-zinc tablet (ProRenal) calcium acetate(phosphat bind) 667 2,001 mg PO TIDM cap 05/03/21 05/16/21 mg capsule docusate sodium 50 mg capsule 50 mg PO DAILY PRN cap 05/03/21 05/16/21 (Colace Clear) Previous Rx's Medication Instructions Recorded BD Ultra-Fine Tiffanie Pen Needle 32 #200 ea NS 11/03/19 gauge x 5/32" (pen needle, diabetic) blood sugar diagnostic (OneTouch #300 ea 06/03/20 Ultra Blue Test Strip) folic acid 1 mg tablet 1 mg PO QAM #90 tab 07/11/20 FreeStyle Lancets 28 gauge #200 ea NS 10/13/20 (lancets) diltiazem HCl 120 mg 120 mg PO QAM #90 cap 12/19/20 capsule,extended release 24 hr insulin aspar prot-insulin aspart See Rx Instructions SUBCUT BID 02/09/21 100 unit/mL (70-30) subcutaneous #135 ml pen (Novolog Mix 70-30FlexPen U-100) pravastatin 40 mg tablet 40 mg PO QPM #90 tab 03/06/21 cephalexin 500 mg capsule 500 mg PO BID 10 Days #20 cap 05/11/21 Results & Data (ED) Vital Signs Vital Signs - 24 hr 05/16/21 19:42 05/16/21 19:47 05/16/21 19:48 Temperature 37.3 C Temperature Source Oral Pulse Rate 92 H Pulse Rate from SpO2 Sensor 92 H Respiratory Rate 16 Respiratory Effort / Characteristics Non-Labored Spontaneous Respiratory Depth Normal Respiratory Pattern Regular Blood Pressure 155/71 H Blood Pressure Mean 99 Blood Pressure Position Sitting Pulse Oximetry 96 97 Oxygen Delivery Method Room Air Room Air Room Air Sepsis Recent Fever Within 48 Hours No Sepsis New/Unexplained Change in Mental Status No Sepsis Action Taken by Nursing No Action Required 05/16/21 20:00 05/16/21 20:30 05/16/21 21:00 Temperature Temperature Source Pulse Rate 93 H 89 89 Pulse Rate from SpO2 Sensor 93 H 89 89 Respiratory Rate 20 16 13 Respiratory Effort / Characteristics Respiratory Depth Respiratory Pattern Blood Pressure 164/67 H 137/62 143/66 H Blood Pressure Mean 99 87 91 Blood Pressure Position Pulse Oximetry 95 97 97 Oxygen Delivery Method Room Air Room Air Room Air Sepsis Recent Fever Within 48 Hours Sepsis New/Unexplained Change in Mental Status Sepsis Action Taken by Nursing 05/16/21 21:30 05/16/21 22:00 05/16/21 22:21 Temperature 37.5 C Temperature Source Oral Pulse Rate 95 H 96 H 94 H Pulse Rate from SpO2 Sensor 94 H 95 H Respiratory Rate 16 20 18 Respiratory Effort / Characteristics Respiratory Depth Respiratory Pattern Blood Pressure 144/62 H 153/67 H 136/64 Blood Pressure Mean 89 95 88 Blood Pressure Position Sitting Pulse Oximetry 96 95 94 Oxygen Delivery Method Room Air Room Air Sepsis Recent Fever Within 48 Hours Sepsis New/Unexplained Change in Mental Status Sepsis Action Taken by Nursing 05/16/21 22:23 05/16/21 22:30 05/16/21 22:40 Temperature 37.1 C Temperature Source Oral Pulse Rate 92 H 92 H 92 H Pulse Rate from SpO2 Sensor 93 H 92 H Respiratory Rate 20 19 22 Respiratory Effort / Characteristics Respiratory Depth Respiratory Pattern Blood Pressure 136/64 148/70 H 162/70 H Blood Pressure Mean 88 96 100 Blood Pressure Position Sitting Pulse Oximetry 94 95 96 Oxygen Delivery Method Room Air Room Air Sepsis Recent Fever Within 48 Hours Sepsis New/Unexplained Change in Mental Status Sepsis Action Taken by Nursing Laboratory Data Result diagrams: 05/16/21 20:25 05/16/21 20:25 Lab Results 05/16/21 05/16/21 05/16/21 Range/Units 20:25 20:25 20:25 WBC 5.28 (4.8-10.8) K/uL RBC 2.30 L (4.7-6.1) M/uL Hgb 7.9 L (14.0-18.0) g/dL Hct 24.6 L (42-52) % MCV 107.0 H (80-100) fL MCH 34.3 H (25-34) pg MCHC 32.1 (32-36) g/dL RDW Std Deviation 70.0 H (36.4-46.3) fL RDW Coeff of Casandra 18.2 H (11.5-14.5) % Plt Count 162 (130-400) K/uL MPV 9.7 (7.4-10.4) fL Immature Gran % (Auto) 1.1 % Neut % (Auto) 71.6 % Lymph % (Auto) 16.5 % [place] % (Auto) 9.1 % Eos % (Auto) 1.5 % Baso % (Auto) 0.2 % Neut # (Auto) 3.78 (1.4-6.5) K/uL Lymph # (Auto) 0.87 L (1.2-3.4) K/uL [place] # (Auto) 0.48 (0.11-0.59) K/uL Eos # (Auto) 0.08 (0-0.5) K/uL Baso # (Auto) 0.01 (0-0.2) K/uL Immature Gran # (Auto) 0.06 H (0.00-0.02) K/uL Polychromasia 1+ Anisocytosis Present Macrocytosis Present PT 9.9 (9.0-12.0) Seconds INR 1.0 (0.9-1.1) Sodium 134 L (136-145) mmol/L Potassium 4.7 (3.5-5.1) mmol/L Chloride 97 L (98-107) mmol/L Carbon Dioxide 31 (21-32) mmol/L Anion Gap 7.0 (3-11) BUN 38 H (7-18) mg/dl Creatinine 4.88 H* (0.6-1.4) mg/dl Est Cr Clr Drug Dosing 11.8 ml/min Est GFR ( Amer) 11.5 ml/min Est GFR (Non-Af Amer) 9.9 ml/min BUN/Creatinine Ratio 7.8 L (10-20) Glucose 189 H (70-99) mg/dl Calcium 8.3 L (8.5-10.1) mg/dl Magnesium 2.2 (1.8-2.4) mg/dl Total Bilirubin 0.3 (0.2-1) mg/dl AST 19 (15-37) U/L ALT 20 (12-78) U/L Alkaline Phosphatase 60 (45-117) U/L Troponin I < 0.015 (0-0.045) ng/ml Total Protein 7.7 (6.4-8.2) gm/dl Albumin 3.3 L (3.4-5.0) gm/dl Globulin 4.4 H (2.5-4.0) gm/dl Albumin/Globulin Ratio 0.7 L (0.9-2) COVID-19 Eval Order SARS-CoV-2 (PCR) (Negative) Blood Type Antibody Screen Crossmatch 05/16/21 05/16/21 05/16/21 Range/Units 20:25 20:38 20:38 WBC (4.8-10.8) K/uL RBC (4.7-6.1) M/uL Hgb (14.0-18.0) g/dL Hct (42-52) % MCV (80-100) fL MCH (25-34) pg MCHC (32-36) g/dL RDW Std Deviation (36.4-46.3) fL RDW Coeff of Casandra (11.5-14.5) % Plt Count (130-400) K/uL MPV (7.4-10.4) fL Immature Gran % (Auto) % Neut % (Auto) % Lymph % (Auto) % [place] % (Auto) % Eos % (Auto) % Baso % (Auto) % Neut # (Auto) (1.4-6.5) K/uL Lymph # (Auto) (1.2-3.4) K/uL [place] # (Auto) (0.11-0.59) K/uL Eos # (Auto) (0-0.5) K/uL Baso # (Auto) (0-0.2) K/uL Immature Gran # (Auto) (0.00-0.02) K/uL Polychromasia Anisocytosis Macrocytosis PT (9.0-12.0) Seconds INR (0.9-1.1) Sodium (136-145) mmol/L Potassium (3.5-5.1) mmol/L Chloride (98-107) mmol/L Carbon Dioxide (21-32) mmol/L Anion Gap (3-11) BUN (7-18) mg/dl Creatinine (0.6-1.4) mg/dl Est Cr Clr Drug Dosing ml/min Est GFR ( Amer) ml/min Est GFR (Non-Af Amer) ml/min BUN/Creatinine Ratio (10-20) Glucose (70-99) mg/dl Calcium (8.5-10.1) mg/dl Magnesium (1.8-2.4) mg/dl Total Bilirubin (0.2-1) mg/dl AST (15-37) U/L ALT (12-78) U/L Alkaline Phosphatase (45-117) U/L Troponin I (0-0.045) ng/ml Total Protein (6.4-8.2) gm/dl Albumin (3.4-5.0) gm/dl Globulin (2.5-4.0) gm/dl Albumin/Globulin Ratio (0.9-2) COVID-19 Eval Order Covid19 at [facility] SARS-CoV-2 (PCR) NEGATIVE (Negative) Blood Type A Negative Antibody Screen NEGATIVE Crossmatch See Detail Administered Medications Metoprolol Tartrate (Metoprolol Tartrate 1 Mg/Ml Vial) 5 mg IV Q4 PRN PRN Reason: Hypertension Stop: 06/16/21 03:59 Last Admin: 05/17/21 00:34 Dose: 5 mg Documented by: [id number] Discontinued Medications Cefepime HCl (Maxipime) 2,000 mg in 20 mls @ 5 mls/min IV NOW STA; Protocol Stop: 05/16/21 21:42 Last Admin: 05/16/21 21:48 Dose: 5 mls/min Documented by: [id number] Imaging Data Radiologist's Impression: Chest X-Ray 05/16/21 19:48 XR chest 1V portable CLINICAL HISTORY: Dyspnea COMPARISON STUDY: Chest CT January 09, 2021. Chest radiograph May 09, 2021. FINDINGS: Lung volumes are normal. Lungs are clear. There is no pneumothorax or pleural effusion. Cardiac size is stable. Mediastinal contours are normal. There is no evidence for pulmonary edema. Interstitial prominence is unchanged. IMPRESSION: No acute cardiopulmonary findings. No change in appearance of the chest. ACT 112: Negative or not required by law. Electronically signed by: Romulo Jeronimo M.D. 05/16/2021 8:14 PM Discharge Plan Visit Data Chief Complaint: Shortness of Breath/Dyspnea ED Provider: Maximo Mccloud Discharge Problem: Anemia, ESRD (end stage renal disease) on dialysis, UTI (urinary tract infection), Chronic GI bleeding, Breathlessness Discharge Instructions Interventions: ED Discharge Assessment Last Done: 05/16/21 23:25
--- NOTE | 2021-05-16 20:15 | XRay Report ---
XR chest 1V portable CLINICAL HISTORY: Dyspnea COMPARISON STUDY: Chest CT January 09, 2021. Chest radiograph May 09, 2021. FINDINGS: Lung volumes are normal. Lungs are clear. There is no pneumothorax or pleural effusion. Car diac size is stable. Mediastinal contours are normal. There is no evidence for pulmonary edema. Inter stitial prominence is unchanged. IMPRESSION: No acute cardiopulmonary findings. No change in appearance of the chest. ACT 112: Negative or not required by law. Electronically signed by: Romulo Jeronimo M.D. 05/16/2021 8:14 PM
[2021-05-16 21:02] LABS: Basophils # (auto) 0.01 K/uL (0-0.2); Basophils % (auto) 0.2 %; Eosinophils # (auto) 0.08 K/uL (0-0.5); Eosinophils % (auto) 1.5 %; Hematocrit (blood only) 24.6 % (42-52); Hemoglobin 7.9 g/dL (14.0-18.0); Immature Granulocytes # (auto) 0.06 K/uL (0.00-0.02); Immature Granulocytes % (auto) 1.1 %; Lymphocytes # (auto) 0.87 K/uL (1.2-3.4); Lymphocytes % (auto) 16.5 %; Mean Corpuscular Hemoglobin 34.3 pg (25-34); Mean Corpuscular Hgb Conc 32.1 g/dL (32-36); Mean Platelet Volume 9.7 fL (7.4-10.4); Monocytes # (auto) 0.48 K/uL (0.11-0.59); Monocytes % (auto) 9.1 %; Neutrophils # (auto) 3.78 K/uL (1.4-6.5); Neutrophils % (auto) 71.6 %; Platelet Count 162 K/uL (130-400); Prothrombin Time 9.9 Seconds (9.0-12.0); RDW Coefficient of Variation 18.2 % (11.5-14.5); White Blood Count 5.28 K/uL (4.8-10.8)
[2021-05-16 21:29] LABS: Alanine Aminotransferase 20 U/L (12-78); Albumin Globulin Ratio 0.7 (0.9-2); Albumin Level 3.3 gm/dl (3.4-5.0); Alkaline Phosphatase 60 U/L (45-117); Aspartate Aminotransferase 19 U/L (15-37); BUN Creatinine Ratio 7.8 (10-20); Bilirubin,Total 0.3 mg/dl (0.2-1); Blood Urea Nitrogen 38 mg/dl (7-18); Calcium 8.3 mg/dl (8.5-10.1); Carbon Dioxide 31 mmol/L (21-32); Chloride 97 mmol/L (98-107); Creatinine Clr Calc Pharmacy 11.8 ml/min; Est GFR (African American) 11.5 ml/min; Est GFR (Non-African American) 9.9 ml/min; Globulin 4.4 gm/dl (2.5-4.0); Glucose 189 mg/dl (70-99); Magnesium 2.2 mg/dl (1.8-2.4); Potassium 4.7 mmol/L (3.5-5.1); Sodium 134 mmol/L (136-145); Total Protein 7.7 gm/dl (6.4-8.2); Troponin I < 0.015 ng/ml (0-0.045)
[2021-05-16] MEDS ORDERED: CEFEPIME 2,000 MG/20 ML VIAL IV STA (21:39)
[2021-05-16] MEDS ORDERED: SODIUM CHLORIDE 0.9% 250 ML IV PRN (21:40)
[2021-05-16 22:46] LABS: Anisocytosis Present; Macrocytosis Present; Polychromasia 1+
--- NOTE | 2021-05-16 23:01 | History & Physical Report ---
Date of Service May 16, 2021 Assessment & Plan (1) Anemia: Plan: Mr. 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 - Hgb at 7.9 on admission, up from 7.2 from dialysis facility. - baseline Hgb appears to be 8-10 - MCV is 107, macrocytic anemia - etiology is likely multifactorial from GAVE syndrome and underlying ESRD - folate and B12 levels were checked and WNL in November 2020. Patient is on a daily folate supplement. Will recheck levels with AM labs. - 1 unit of pRBCs ordered. Blood consent signed and in chart - recheck Hgb in am (2) ESRD (end stage renal disease) on dialysis: Plan: - completed today's scheduled dialysis session - trend BMP - unless patient will be staying until , no need to consult nephrology for dialysis arrangement (3) UTI (urinary tract infection): Plan: - Urine culture from 05/10 finalized growing proteus - given 1 dose of IV cefepime in the ED - sensitivities reviewed: will begin oral Augmentin 05/17 (4) Diabetes: Plan: - HbA1c at 5.7 on 05/10/21, well below goal for age - continue home insulin regimen while inpatient, although recommend outpatient discussion: re consideration of reducing/discontinuing insulin - diabetic diet (5) First degree AV block: Plan: - EKG on admission, computer interpretation was new onset Atrial Fibrillation - however on my review, the rhythm appears regular and there appear to be P waves before every QRS complex. - ME interval is elongated (6) Dyslipidemia: Plan: - continue home pravastatin (7) Hypertension: Plan: - continue home dose diltiazem Dvt ppx: chemo contraindicated in the setting of acute anemia Diet: Dialysis, DM Carb consistent, Heart Healthy Dispo: Med/Surg w tele Code: DNR/DNI, I discussed with patient History of Present Illness Primary Care Provider: Noel Raymundo MD Mr. Madden is an 86 year old gentleman with a PMHx of ESRD on Sat, Sat hemodialysis and GAVE syndrome who presented to the [facility] ED at the direction of his software program manager. Earlier today Mr. Madden completed his regularly scheduled dialysis session - after returning home, he received a call notifying him that his hemoglobin drawn at the dialysis facility returned low at 7.2. He told Dr. Acosta he felt slightly dyspneic on exertion and had some chest heaviness, and she directed to come in for a blood transfusion. He gets blood transfusions periodically due to his underlying renal disease and GAVE syndrome. He states his chest heaviness has resolved by the time of his admission. Of note, his PCP ordered a urine analysis on 05/10/21 and started him on a Keflex script. His culture finalized today as growing proteus. Social Hx: Non smoker. No Etoh In the ED, he was afebrile, his HR was 95, BP was 144/62, and breathing well on room air. His Hgb was 7.9, MCV was 107. INR was WNL. Na mildly low at 134, K normal at 4.7. Cr at 4.88. Trop undetectable. COVID 19 neg. EKG appears to showing NSR with a first degree AV brittany block. CXR showed no active disease. Blood consent was signed. He was given 1 dose of IV Cefepime and 1 unit of pRBCs was ordered. Allergies Allergy/AdvReac Type Severity Reaction Status Date / Time clarithromycin AdvReac Intermediate confusion Verified 05/16/21 20:10 fish oil AdvReac Intermediate hx of Verified 05/16/21 20:10 hemorrhage in past Sulfa (Sulfonamide AdvReac Intermediate severe Verified 05/16/21 20:10 Antibiotics) agitation/delirium Home Medications Medication Instructions Recorded Confirmed Type vit B complx, C-iron 8 mg-folic 1 tab PO QAM tab 03/05/19 05/16/21 History acid 800 mcg-D3 1,000 unit-zinc tablet (ProRenal) BD Ultra-Fine Tiffanie Pen Needle 32 #200 ea NS 11/03/19 05/16/21 Rx gauge x 5/32" (pen needle, diabetic) blood sugar diagnostic (OneTouch #300 ea 06/03/20 05/16/21 Rx Ultra Blue Test Strip) folic acid 1 mg tablet 1 mg PO QAM #90 tab 07/11/20 05/16/21 Rx FreeStyle Lancets 28 gauge #200 ea NS 10/13/20 05/16/21 Rx (lancets) diltiazem HCl 120 mg 120 mg PO QAM #90 cap 12/19/20 05/16/21 Rx capsule,extended release 24 hr insulin aspar prot-insulin aspart See Rx Instructions SUBCUT BID 02/09/21 05/16/21 Rx 100 unit/mL (70-30) subcutaneous #135 ml pen (Novolog Mix 70-30FlexPen U-100) pravastatin 40 mg tablet 40 mg PO QPM #90 tab 03/06/21 05/16/21 Rx calcium acetate(phosphat bind) 667 2,001 mg PO TIDM cap 05/03/21 05/16/21 History mg capsule docusate sodium 50 mg capsule 50 mg PO DAILY PRN cap 05/03/21 05/16/21 History (Colace Clear) Past Med/Surg History Medical History (Updated 05/17/21 @ 10:33 by Rob Rojas) Acute dyspnea 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 S/P EGD WITH CAUTERIZATION 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 COVID-19 Diabetic neuropathy Dyslipidemia Emphysema lung suggested per CXR End-stage renal disease on hemodialysis DIALYSIS SATURDAY/SATURDAY/SATURDAY AT [facility] VIA PERMACATH GAVE (gastric antral vascular ectasia) Gout Hearing deficit LEFT History of blood transfusion 2/2 GIB felt r/t radiation therapy s/p total of 6 units PRBC's since 10/2018 Hypertension Non-occlusive coronary artery disease Nontoxic multinodular goiter Osteoarthritis Prostate cancer S/P SURGERY, XRT Prostate cancer Pulmonary nodules UNDER SURVEILLANCE T2DM (type 2 diabetes mellitus) Thrombocytopenia Transient ischemic attack (TIA) 2014--no deficits, no neurologist Surgical History Amputation of left little finger H/O prostatectomy History of arthroscopy LEFT KNEE History of bowel resection BOWEL LACERATION DURING ATTEMPTING POLYPECTOMY History of cardiac cath X3 = NO STENTS History of cataract surgery RIGHT/LEFT History of colonoscopy History of esophagogastroduodenoscopy (EGD) + CAUTERIZATION (2/2 GIB) History of surgery fistulogram with Dr. Hanna through Right AV fistula 08/17/19 History of tooth extraction S/P arteriovenous (AV) fistula creation LEFT S/P arteriovenous (AV) fistula creation right 05/[address] Hanna S/P dialysis catheter insertion Permcath + attempted thrombectomy: 04/2019: MAC sedation at [facility] Family History Father Family history of diabetes mellitus Hypertension Brother Prostate cancer Mother Heart disease Hypertension Denies family history of Ovarian cancer Breast cancer Lung cancer Colorectal cancer Social History (Updated 05/15/21 @ 10:41 by VIPUL Islas) Smoking Status: Never smoker Second Hand Exposure: No; Hx Alcohol Use: No Hx Substance Use: No Preferred Language: Lithuanian Communication Ability: Effective Visual Impairment: No Limitations Hearing Ability: Use of Hearing Aid Certified Massage Therapist Required: No Beliefs That Will Affect Care: None marital status: Current Living Situation: Other Current Living Situation Comment: Lives with Grandson current occupational status: retired How many Children do You have: 1 Feels Safe at Home: No Is there a partner from a previous relationship who is making you feel unsafe now?: No Childhood Exposure to Second-Hand Smoke: Yes Diet Comment: regular caffeine: Yes (coffee, once in a while) during the past year weight has: remained stable Dental Care, Regularly: Yes Physical Activity Frequency: Does not Exercise Seatbelt Use: always Sunscreen Use: No Assistive Devices: Denture - Upper and Walker Review of Systems Review of Systems: as per HPI Physical Exam Constitutional: WD/WN, vitals as above + obese and cooperative; no acute distress Eyes: + anicteric sclerae ENMT: external ear and nose normal, oropharynx normal Neck: trachea midline Respiratory: normal respiratory effort, lungs clear to auscultation no cough Cardiovascular: RRR, no murmur, no edema Heart Sounds: normal S1 and normal S2 Extremities: + AV fistula (R and L arm, L is non functioning) Gastrointestinal (Abdomen): normal bowel sounds, soft, nontender, no hepatosplenomegaly Musculoskeletal: Head/Neck/Chest: normocephalic and head atraumatic Skin: no rashes, warm and dry Psychiatric: A+Ox3, euthymic affect Results & Data Results & Data ([facility]) Vital Signs (Past 12 Hours) Vital Signs Temp Pulse Resp BP Pulse Ox 05/16/21 22:41 93 H 19 162/70 H 96 05/16/21 22:40 37.1 C 92 H 22 162/70 H 96 05/16/21 22:30 92 H 19 148/70 H 95 05/16/21 22:23 92 H 20 136/64 94 05/16/21 22:21 37.5 C 94 H 18 136/64 94 05/16/21 22:00 96 H 20 153/67 H 95 05/16/21 21:30 95 H 16 144/62 H 96 05/16/21 21:00 89 13 143/66 H 97 05/16/21 20:30 89 16 137/62 97 05/16/21 20:00 93 H 20 164/67 H 95 05/16/21 19:47 97 05/16/21 19:42 37.3 C 92 H 16 155/71 H 96 Supervising Physician Co-Signing Physician Notes Attending addendum: I have physically seen this patient, have supervised the medical residents activities, and agree with the H&P unless as otherwise noted. Assessment and Plan: Upper GI bleed/GAVE syndrome- Hb 7.2 in outpatient setting today, 7.9 in the ED tonight. frequent requirement for transfusions give 1 unit PRBC's now, and repeat H/H 1 hour after completion ESRD on HD- last dialysis completed today as scheduled UTI- Proteus in culture from 05/10 Cefepime IV x 1 in the ED Dosed augmentin as follow up remaining ordes and notations as noted Resident Activity Tracking Resident Involvement: Resident Care Provided Care Provided: Adult Hospital Medicine (1) Diabetes Diabetes mellitus complication status: with other specified complication Diabetes mellitus half-way insulin use: with half-way use Diabetes mellitus type: type 2 Qualified Code(s): E11.69 - Type 2 diabetes mellitus with other specified complication; Z79.4 - nursing home (current) use of insulin (2) Anemia Anemia type: unspecified type Qualified Code(s): D64.9 - Anemia, unspecified (3) Hypertension Hypertension type: essential hypertension Qualified Code(s): I10 - Essential (primary) hypertension
[2021-05-16] MEDS ORDERED: GLUCOSE 40% GEL 15 GM TUBE PO PRN (23:37)
[2021-05-16] MEDS ORDERED: GLUCOSE 10 TABS/TUBE PO PRN (23:37)
[2021-05-16] MEDS ORDERED: ACETAMINOPHEN 325 MG TAB PO PRN (23:37)
[2021-05-16] MEDS ORDERED: POLYETHYLENE (MIRALAX) 17 GM PACK PO PRN (23:37)
[2021-05-16] MEDS ORDERED: GLUCAGON FOR INJ 1 MG VIAL SQ PRN (23:37)
[2021-05-16] MEDS ORDERED: DEXTROSE 50% 50 ML SYRINGE IV PRN (23:37)
[2021-05-16] MEDS ORDERED: CARBOHYDRATES FOR HYPOGLYCEMIA PO PRN (23:37)
[2021-05-16] MEDS ORDERED: ONDANSETRON INJ 2 MG/ML 2 ML VIAL IV PRN (23:37)
[2021-05-17] MEDS ORDERED: PHARMACY GLYCEMIC MGMT CONSULT PRN (00:24)
[2021-05-17] MEDS ORDERED: METOPROLOL TARTRATE 1 MG/ML VIAL IV PRN (00:25)
[2021-05-17] MEDS: INSULIN ASPART 100 UNITS/ML 3 ML PEN SC SCH ×3 (01:13→13:22)
[2021-05-17 02:51] LABS: BUN Creatinine Ratio 7.8 (10-20); Blood Urea Nitrogen 42 mg/dl (7-18); Calcium 7.8 mg/dl (8.5-10.1); Carbon Dioxide 33 mmol/L (21-32); Chloride 98 mmol/L (98-107); Creatinine Clr Calc Pharmacy 11.1 ml/min; Est GFR (African American) 10.3 ml/min; Est GFR (Non-African American) 8.9 ml/min; Glucose 192 mg/dl (70-99); Potassium 4.7 mmol/L (3.5-5.1); Sodium 136 mmol/L (136-145); Troponin I < 0.015 ng/ml (0-0.045)
[2021-05-17 03:00] LABS: Hematocrit (blood only) 24.8 % (42-52); Hemoglobin 7.8 g/dL (14.0-18.0); Mean Corpuscular Hgb Conc 31.5 g/dL (32-36); Mean Corpuscular Volume 101.6 fL (80-100); Mean Platelet Volume 9.1 fL (7.4-10.4); Platelet Count 126 K/uL (130-400); RDW Coefficient of Variation 20.7 % (11.5-14.5); RDW Standard Deviation 75.6 fL (36.4-46.3); Red Blood Count 2.44 M/uL (4.7-6.1)
[2021-05-17 03:02] LABS: Anisocytosis Present; Basophils # (auto) 0.01 K/uL (0-0.2); Basophils % (auto) 0.2 %; Eosinophils # (auto) 0.09 K/uL (0-0.5); Eosinophils % (auto) 1.7 %; Immature Granulocytes # (auto) 0.03 K/uL (0.00-0.02); Immature Granulocytes % (auto) 0.6 %; Lymphocytes # (auto) 0.98 K/uL (1.2-3.4); Lymphocytes % (auto) 18.5 %; Monocytes # (auto) 0.59 K/uL (0.11-0.59); Monocytes % (auto) 11.1 %; Neutrophils % (auto) 67.9 %
[2021-05-17 03:27] LABS: Folate (Folic Acid) > 20.00 ng/ml (>5.38); Vitamin B12 379 pg/ml (193-986)
[2021-05-17] MEDS ORDERED: SODIUM CHLORIDE 0.9% 250 ML IV PRN ×3 (03:34→09:19)
[2021-05-17] MEDS ORDERED: INSULIN ASPART 100 UNITS/ML 3 ML PEN SC SCH (04:00)
[2021-05-17] MEDS ORDERED: INSULIN HUMAN NPH SC ONE ×2 (08:00→16:30)
[2021-05-17] MEDS ORDERED: AMOXICILLIN/CLAVULANATE 250 MG TAB PO SCH (08:00)
[2021-05-17] MEDS ORDERED: FOLIC ACID 1 MG TAB PO SCH (09:00)
[2021-05-17] MEDS ORDERED: CEROVITE ADV FORMULA TAB PO SCH (09:00)
[2021-05-17] MEDS ORDERED: dilTIAZem HCL 120 MG CAPCR PO SCH (09:00)
--- NOTE | 2021-05-17 09:31 | Med Student Discharge Summary ---
Date of Service May 17, 2021 Admission HPI Per Admitting Provider Mr. Madden is an 86 year old gentleman with a PMHx of ESRD on Sat, Sat hemodialysis and GAVE syndrome who presented to the [facility] ED at the direction of his farm machinery assembler. Earlier today Mr. Madden completed his regularly scheduled dialysis session - after returning home, he received a call notifying him that his hemoglobin drawn at the dialysis facility returned low at 7.2. He told Dr. Acosta he felt slightly dyspneic on exertion and had some chest heaviness, and she directed to come in for a blood transfusion. He gets blood transfusions periodically due to his underlying renal disease and GAVE syndrome. He states his chest heaviness has resolved by the time of his admission. Of note, his PCP ordered a urine analysis on 05/10/21 and started him on a Keflex script. His culture finalized today as growing proteus. Social Hx: Non smoker. No Etoh In the ED, he was afebrile, his HR was 95, BP was 144/62, and breathing well on room air. His Hgb was 7.9, MCV was 107. INR was WNL. Na mildly low at 134, K normal at 4.7. Cr at 4.88. Trop undetectable. COVID 19 neg. EKG appears to showing NSR with a first degree AV brittany block. CXR showed no active disease. Blood consent was signed. He was given 1 dose of IV Cefepime and 1 unit of pRBCs was ordered. Admission Exam (Per Admitting) Constitutional WD/WN, vitals as above + obese and cooperative; no acute distress Eyes + anicteric sclerae ENMT external ear and nose normal, oropharynx normal Neck trachea midline Respiratory normal respiratory effort, lungs clear to auscultation no cough Cardiovascular RRR, no murmur, no edema Heart Sounds: normal S1 and normal S2 Extremities: + AV fistula (R and L arm, L is non functioning) Gastrointestinal (Abdomen) normal bowel sounds, soft, nontender, no hepatosplenomegaly Musculoskeletal Head/Neck/Chest: normocephalic and head atraumatic Skin no rashes, warm and dry Psychiatric A+Ox3, euthymic affect Discharge Data Consultations 05/16/21 21:47 ED Decision to Admit Stat Hospital Course (1) Anemia: Mr. Madden is an 86 yo M with a PMHx of ESRD on HD, prostate cancer s/p radiation with proctitis, GAVE syndrome, DM2, and cirrhosis who presented on 05/16 for a blood transfusion after being notified of a low hemoglobin level after hemodialysis treatment. - Hgb timeline: -At dialysis: 7.2 -At admission: 7.9 -After first pRBC transfusion: 7.8 -After second pRBC transfusion: 9.4 - also received a third pRBC transfusion due to chronic bleeding; patient states he usually requires two units to restore his Hgb - baseline Hgb appears to be 8-10 - MCV is 107, macrocytic anemia - etiology is likely multifactorial from GAVE syndrome and underlying ESRD - folate and B12 levels were checked and WNL. Patient is on a daily folate supplement. (2) ESRD (end stage renal disease) on dialysis: - completed scheduled dialysis session on 05/16 before admission - patient is being discharged before his next dialysis session on 05/18 - BUN: 42 -- around baseline; Cr: 5.35 -- around baseline; not concerning for EMILEE (3) UTI (urinary tract infection): - Urine culture from 05/10 finalized growing proteus - given 1 dose of IV cefepime in the ED - patient asymptomatic: no dysuria, hematuria, frequency - will not discharge on ABx (4) Diabetes: - HbA1c at 5.7 on 05/10/21, well below goal for age - home insulin regimen was followed while inpatient - recommended outpatient follow-up with Dr. Raymundo RE consideration of lowering/discontinuing insulin regimen (5) Atrial fibrillation: - EKG on admission, computer interpretation was new onset Atrial Fibrillation - Recommend outpatient echocardiogram to follow-up - Not recommending anti-coagulation at this time due to bleeding risk (6) Dyslipidemia: - home dose pravastatin was continued (7) Hypertension: - home dose diltiazem was continued Discharge Plan Discharge Items Patient Disposition: Home - Self-Care Reason For Visit: ANEMIA Discharge Diagnosis: Anemia requiring blood tranfusion Activity: Per Instructions section Non-emergency contact: Primary Care Provider Call non-emergency contact if: you have any medication questions and your symptoms worsen Follow-up/Referrals: Noel Raymundo MD [Primary Care Provider] - 05/23/21 3:45 pm (If you have any questions or need to change this appointment, please call [phone].) Diet: Carb Consistent or DM2, Heart Healthy and Low Sodium (2gm) Addtl Attending Provider Instructions: You were admitted to the hospital for low hemoglobin following your dialysis session. Low hemoglobin -After your hemodialysis session yesterday, you were found to have low hemoglobin, which led to your symptoms of chest pain and difficulty breathing. You were referred to the ER by your farm machinery assembler and found to have an improvement in your hemoglobin although it was still low. During your hospitalization, you received 3 blood transfusions and your hemoglobin returned to normal levels with your symptoms resolving as well. Your low hemoglobin was likely caused by your chronic kidney disease and GAVE syndrome. It is important you stay well-hydrated, maintain physical activity and avoid eating high-salt foods/red meats to counteract your kidney disease and GAVE syndrome. Atrial fibrillation -During your hospitalization it was noted that you had an arrhythmia on your EKG, which measures the electrical conduction of your heart. This is a rhythm that we often start anticoagulation for, however given your history of bleeding we did not start that medication. You should review this with your primary care doctor. Antibiotics -We stopped your antibiotics as you were not having urinary symptoms. Sometimes people have bacteria in their urine; but this does not mean that you have a urinary tract infection. Let your primary care doctor know if you develop pain or burning with urination, blood in the urine, or increase in the urgency you have to urinate. A discharge summary will be sent to your primary care physician to ensure continuity of care. Please bring this discharge summary with you to your next office appointment so that your provider can review it at that time. Follow-up appointments: Make a follow-up appointment with your PCP within the next week. It is very important that you follow up with them shortly after discharge from the hospital to discuss this hospitalization and your symptoms. Medications: Your medication list has been reviewed and reconciled upon discharge to ensure accuracy and continuity of care. An updated list of all your medications is included with your hospital discharge paperwork. Please review this list closely, and make note of any changes. Take your medications as instructed; do not skip a dose of your medicines. Make sure all of your doctors know every medicine you are taking (including enwj-fua-bcdxqdi medicines, vitamins, and supplements). Call your primary care provider before taking any new medicines (including jxvp-miw-gkehqyr medicines, vitamins, and supplements), because some of these may interact with your current medications, or may make your symptoms worse. Tell your primary care provider if you cannot afford your medications. CONTACT YOUR PRIMARY CARE PROVIDER if you experience any of the following: Chest pain Dyspnea Lightheadedness/dizziness Bloody stools Difficulty following your treatment plan, or difficulty taking medications CALL 911 OR GO TO THE EMERGENCY DEPARTMENT if you experience any of the following: Sudden, severe abdominal pain or nausea/vomiting Severe chest pain, or chest pain that radiates (moves) to your jaw or arm Sudden, severe shortness of breath or difficulty breathing Thank you for allowing us to participate in your care. Pending Studies at Discharge: No Stand-Alone Forms: [facility] [employer], Smoking Cessation Medications and DC Order Prescriptions: Continued (DME) pen needle, diabetic [BD Ultra-Fine Tiffanie Pen Needle] 32 gauge x 5/32" needle See Rx Instructions .ROUTE .MEDSUPPLY Qty: 200 RF: 3 (DME) blood sugar diagnostic [OneTouch Ultra Blue Test Strip] Strip See Rx Instructions .ROUTE .MEDSUPPLY Qty: 300 RF: 3 folic acid 1 mg tablet 1 mg PO QAM Qty: 90 RF: 3 (DME) lancets [FreeStyle Lancets] 28 gauge misc See Rx Instructions .ROUTE .MEDSUPPLY Qty: 200 RF: 3 insulin asp prt-insulin aspart [Novolog Mix 70-30FlexPen U-100] 100 unit/mL (70-30) insulin pen See Rx Instructions subcut BID Qty: 135 RF: 3 pravastatin 40 mg tablet 40 mg PO QPM Qty: 90 RF: 3 ProRenal 8 mg iron-800 mcg-1,000 unit tablet 1 tab PO QAM RF: 0 calcium acetate(phosphat bind) 667 mg capsule 2,001 mg PO TIDM RF: 0 diltiazem HCl 120 mg capsule,extended release 24hr 120 mg PO QAM Qty: 90 RF: 3 Colace Clear 50 mg capsule 50 mg PO DAILY PRN (Reason: Constipation) RF: 0 Discontinued cephalexin 500 mg capsule 500 mg PO BID 10 Days Qty: 20 RF: 0 Discharge Orders: Discharge Order (Routine); Ordered 05/17/21 Ordered By: Chance Carroll Admission Data Admit Date/Time: 05/16/21 22:41 Attending Provider: Navneet,Ruben R Admit Provider: Magnolia Bright Primary Care Provider: Noel Raymundo Other Providers: Ronnell Pittman Other Interventions: Discharge Summary Assessment (RN) Last Done: 05/17/21 14:15 Supervising Attestation I personally examined the patient and verified all gaitan points of history and exam, discussed case, and agree with decision making with Rigo Bob SYED4 Feeling better, very much wants to go home. Vitals noted, in general he is awake and alert pleasant no distress. HEENT normocephalic atraumatic mucous membranes moist. Breathing unlabored no accessory muscle use good effort. Skin shows no rashes no pallor or icterus. Subacute on chronic blood loss anemiablood loss due to G AVE, impaired hematopoiesis due to ESRD. Transfused 2 units, stable for home. Close outpatient follow-up. New onset A. fibrate already controlled, due to above anticoagulation would be unsafe. Outpatient follow-up. Apparently never had any urinary tract symptomstherefore urine was almost certainly asymptomatic bacteriuria. Otherwise as above
[2021-05-17] MEDS: CALCIUM ACETATE 667 MG CAP/TAB PO SCH ×2 (09:56→13:20)
--- NOTE | 2021-05-17 10:30 | Pharmacy Report ---
Pharmacy Glycemic Short Note 2 - Date of Service May 17, 2021 - Glycemic Short BSG Results (Last 24 hours): 05/16/21 05/17/21 05/17/21 20:25 01:08 01:54 Glucose 189 H 192 H POC Glucose 221 H 05/17/21 05/17/21 03:57 07:25 Glucose POC Glucose 150 H 214 H OUTPATIENT ANTIDIABETIC REGIMEN: * Novolog 70/30 * On Dialysis Days: 72 units SC AM + 74 units SC PM * On Non-Dialysis Days: 80 units SC AM + 74 units SC PM * HbA1c was 5.7% on 05/10/21 * However, this result is likely somewhat unreliable in ESRD patients d/t interactions between the A1c analyzing technique and high levels of urea in ESRD, reduced RBC life span, iron deficiency anemia, and EPO administration. HbA1c > 7.5% in ESRD patient may overestimate the extent of hyperglycemia in ESRD patients. ASSESSMENT: * 86 yo M admitted overnight secondary to shortness of breath and anemia. Pharmacy has been consulted to assist with inpatient glycemic management. Patient is known to our service. * Admission BSG was 221 mg/dL. Patient was given 10 units of Novolog at this time as well as had an HS snack. Overnight BSG was 150 mg/dL which was at goal. * Fasting BSG today was 214 mg/dL. Patient is ordered a diet. No plans for HD today. * Will start NPH and Novolog with dosing based on previous admission data. * Patient did have episodes of hypoglycemia during last admission so will dose cautiously to begin. Will also target a loose goal range to help prevent hypoglycemia. PLAN FOR INPATIENT GLYCEMIC CONTROL: * Basal insulin * NPH 25 units SC AM * NPH 0-15 units SC PM (see eMAR for more details) * Bolus insulin * NovoLog per scale ACHS or Q6hrs while NPO * Goal Range: Low 120 mg/dL - High 150 mg/dL * Correction Factor: 15 mg/dL/unit * Nutritional / Prandial insulin per carb ratio of 1 unit per 5 grams CHO consumed PLAN FOR DISCHARGE: * Given hypoglycemia during previous admission as well as HbA1c, albeit unreliable in ESRD patients, patient will likely require a dose reduction in insulin upon discharge to prevent any outpatient hypoglycemic episodes. * Recommendations to follow.
--- NOTE | 2021-05-17 20:41 | Billing Data ---
Date of Service May 17, 2021 Coding Level of Care Code D/C DAY MANAGEMENT <30 MINS
--- NOTE | 2021-05-17 20:42 | Billing Data ---
Date of Service May 17, 2021 Coding Level of Care Code 24127 OBS Care - Discharge Comment disregard <30mins dc
[2021-05-17] MEDS ORDERED: PRAVASTATIN SOD 40 MG TAB PO SCH (21:00)
--- NOTE | 2021-05-17 23:04 | Billing Data ---
Date of Service May 17, 2021 Coding Level of Care Code INT OBSERVATION CARE 70M LVL 3
--- NOTE | 2021-05-19 06:22 | Electrocardiogram Report ---
Test Reason : Blood Pressure : / mmHG Vent. Rate : 090 BPM Atrial Rate : 090 BPM P-R Int : 252 ms QRS Dur : 082 ms QT Int : 384 ms P-R-T Axes : 000 040 058 degrees QTc Int : 469 ms Sinus rhythm with 1st degree A-V block Premature atrial complexes Cannot rule out Anterior infarct , age undetermined Abnormal ECG When compared with ECG of 09-MAY-2021 11:59, Premature ventricular complexes are no longer Present Confirmed by Phani Rodriguez ([id number]) on 05/19/2021 6:22:06 AM Referred By: REFERRED SELF Confirmed By:Phani Rodriguez
--- NOTE | 2021-05-19 08:50 | Electrocardiogram Report ---
Test Reason : Blood Pressure : / mmHG Vent. Rate : 092 BPM Atrial Rate : 088 BPM P-R Int : 220 ms QRS Dur : 080 ms QT Int : 366 ms P-R-T Axes : 000 061 057 degrees QTc Int : 452 ms Sinus rhythm with 1st degree A-V block When compared with ECG of 16-MAY-2021 20:14, No significant change Confirmed by Phani Rodriguez ([id number]) on 05/19/2021 8:49:45 AM Referred By: REFERRED SELF Confirmed By:Phani Rodriguez
== END 2021-05-17 15:56 | disposition home or self-care (01) ==
LOC: ED 19:35 → 2N 19:35 → SUATTDRO 22:41 → 2N 23:25

== ENCOUNTER 2021-06-04 17:29 | Observation (INO) ==
--- NOTE | 2021-06-04 17:47 | Emergency Department Note ---
Impression & Plan Chest pain, ESRD (end stage renal disease) on dialysis, Anemia, Chronic upper GI bleeding ED Provider Note NAME: MARY ANN DENNIS AGE: 86 SEX: M : 1935 ARRIVES VIA: Ambulance INFORMANT: Patient, EMS personnel ED PROVIDER(S): Franco Sterling DO CHIEF COMPLAINT: Chest pain HPI: The patient is an 86-year-old male who presented to the emergency department by ambulance for evaluation of chest pain. The patient has a history of chest pain as well as atrial fibrillation. The patient was seen at dialysis yesterday. He had a full round of dialysis. The patient was noted to have low hemoglobin. He thinks his hemoglobin is dropping because now he is becoming symptomatic with significant shortness of breath with exertion as well as chest pain with exertion. The patient has a history of radiation treatment for prostate cancer. 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 He has had no current rectal bleeding and denies having any black or bloody stools at this time. He denies having any lower extremity edema greater than usual. He denies having any fever or cough. ROS: See above HPI for pertinent positives & negatives. A total of 10 systems reviewed and were otherwise negative. PAST MEDICAL HISTORY: See Below PAST SURGICAL HISTORY: See Below FAMILY HISTORY: See Below SOCIAL HISTORY: See Below HOME MEDICATIONS: See Below ALLERGIES: See Below VITALS: See Below PHYSICAL EXAMINATION: GENERAL: Patient is awake alert in no acute distress patient is resting comfortably and showing no signs of anxiety EYES: The conjunctivae are clear. The pupils are round and reactive. EARS, NOSE, MOUTH AND THROAT: The nose is without any evidence of any deformity. NECK: The neck is nontender and supple. RESPIRATORY: Normal respiratory effort is noted there is no evidence of wheezing rhonchi or rales CARDIOVASCULAR: Regular rate and rhythm noted there no murmurs rubs or gallops normal S1 normal S2. GASTROINTESTINAL: The abdomen is soft. Abdomen is nontender. MUSCULOSKELETAL/EXTREMITIES: There is no evidence of gross deformity full range of motion is noted in the hips and shoulders. SKIN: Skin was warm and dry. There is no significant pedal edema. NEUROLOGIC: Patient is awake alert and oriented x3. MEDICAL DECISION MAKING: The patient is an 86-year-old male who presented to the emergency department for an evaluation of chest pain. The patient has a history of end-stage renal disease. He normally has dialysis on Saturdays and had his recent dialysis yesterday. He was noted to have anemia. He was scheduled for follow-up for the anemia and possible transfusion. He started having symptoms of shortness of breath with exertion and chest pain. He knew he was coming more anemic than usual. The patient presented to the emergency department by ambulance for evaluation. The patient was feeling much better at rest. He was typed and crossed and I ordered transfusion. I discussed the patient's laboratory and radiographic studies with him. I also discussed his case with the on-call [facility]ist group. They have agreed to evaluate the patient in the emergency department for further management and disposition. I consented the patient for blood transfusion. Triage Nursing notes reviewed. Prior medical records reviewed Vital Signs: reviewed and remarkable for elevated blood pressure. Differential diagnosis: Cardiac ischemia, aortic dissection, pulmonary embolism, pneumothorax, pneumonia, pericarditis, myocarditis, esophageal rupture, GERD, cholecystitis, pancreatitis, musculoskeletal, as well as other pathologies. ER treatment provided: See below Diagnostics interpreted by me: ECG: EKG was obtained in the emergency department. My interpretation is atrial fibrillation at 105 bpm. There is no PVCs. There was no acute ST segment abnormalities noted. This was compared to a tracing from May 172020. No significant changes were noted. Cardiac Monitoring: An order was placed for continuous cardiac monitoring. The monitor shows a rate of 87 bpm with atrial fibrillation rhythm. Laboratory studies: As stated above and show below. Imaging studies: See below Consultation(s): 1839: I discussed this case with Dr. Velasco who is on-call for the [facility] hospitalist group. He will evaluate the patient in the emergency department. ED COURSE: Procedures: none Critical Care: I have personally spent greater than 40 minutes of critical care time in the dir ect management of this patient. This includes bedside care, interpretation of diagnostic studies, and testing, discussion with consultants, patient, and family members, and other required patient management activities. This 40 minutes is in excess of all separately billable procedures. 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 COVID-19 Diabetic neuropathy Dyslipidemia Emphysema lung suggested per CXR End-stage renal disease on hemodialysis DIALYSIS SATURDAY/SATURDAY/SATURDAY AT [facility] VIA PERMACATH GAVE (gastric antral vascular ectasia) Gout Hearing deficit LEFT History of blood transfusion 2/2 GIB felt r/t radiation therapy s/p total of 6 units PRBC's since 10/2018 Hypertension Non-occlusive coronary artery disease Nontoxic multinodular goiter Osteoarthritis Prostate cancer S/P SURGERY, XRT Prostate cancer Pulmonary nodules UNDER SURVEILLANCE T2DM (type 2 diabetes mellitus) Thrombocytopenia Transient ischemic attack (TIA) 2014--no deficits, no neurologist Surgical History Amputation of left little finger H/O prostatectomy History of arthroscopy LEFT KNEE History of bowel resection BOWEL LACERATION DURING ATTEMPTING POLYPECTOMY History of cardiac cath X3 = NO STENTS History of cataract surgery RIGHT/LEFT History of colonoscopy History of esophagogastroduodenoscopy (EGD) + CAUTERIZATION (2/2 GIB) History of surgery fistulogram with Dr. Hanna through Right AV fistula 08/17/19 History of tooth extraction S/P arteriovenous (AV) fistula creation LEFT S/P arteriovenous (AV) fistula creation right 05/[address] Hanna S/P dialysis catheter insertion Permcath + attempted thrombectomy: 04/2019: MAC sedation at [facility] [place] Family History Father Family history of diabetes mellitus Hypertension Brother Prostate cancer Mother Heart disease Hypertension Denies family history of Ovarian cancer Breast cancer Lung cancer Colorectal cancer Social History Smoking Status: Never smoker Second Hand Exposure: Yes (parents smoked/ smoked); Hx Alcohol Use: No Hx Substance Use: No Preferred Language: Setswana Communication Ability: Effective Visual Impairment: No Limitations Hearing Ability: Use of Hearing Aid Motorcycle Technician Required: No Beliefs That Will Affect Care: None marital status: Current Living Situation: Other Current Living Situation Comment: Lives with Grandson current occupational status: retired How many Children do You have: 1 Feels Safe at Home: Yes Childhood Exposure to Second-Hand Smoke: Yes Diet Comment: regular caffeine: Yes (coffee, once in a while) during the past year weight has: remained stable Dental Care, Regularly: Yes Physical Activity Frequency: Does not Exercise Seatbelt Use: always Sunscreen Use: No Assistive Devices: Denture - Upper and Walker Allergies Allergies Allergy/AdvReac Type Severity Reaction Status Date / Time clarithromycin AdvReac Intermediate confusion Verified 06/04/21 18:21 fish oil AdvReac Intermediate hx of Verified 06/04/21 18:21 hemorrhage in past Sulfa (Sulfonamide AdvReac Intermediate severe Verified 06/04/21 18:21 Antibiotics) agitation/delirium Home Meds Home Medications Medication Instructions Recorded Confirmed vit B complx, C-iron 8 mg-folic 1 tab PO QAM tab 03/05/19 06/04/21 acid 800 mcg-D3 1,000 unit-zinc tablet (ProRenal) calcium acetate(phosphat bind) 667 2,001 mg PO TIDM cap 05/03/21 06/04/21 mg capsule docusate sodium 50 mg capsule 50 mg PO DAILY PRN cap 05/03/21 06/04/21 (Colace Clear) aspirin 81 mg tablet,delayed 81 mg PO DAILY 06/04/21 06/04/21 release (Aspirin Low Dose) metoprolol tartrate 25 mg tablet 37.5 mg PO BID 06/04/21 06/04/21 Previous Rx's Medication Instructions Recorded diltiazem HCl 120 mg 120 mg PO QAM #90 cap 12/19/20 capsule,extended release 24 hr insulin aspar prot-insulin aspart See Rx Instructions SUBCUT BID 02/09/21 100 unit/mL (70-30) subcutaneous #135 ml pen (Novolog Mix 70-30FlexPen U-100) pravastatin 40 mg tablet 40 mg PO QPM #90 tab 03/06/21 folic acid 1 mg tablet 1 mg PO QAM #90 tab 05/22/21 Results & Data (ED) Vital Signs Vital Signs - 24 hr 06/04/21 17:38 06/04/21 17:42 06/04/21 17:44 Temperature 36.9 C Temperature Source Oral Pulse Rate 83 103 H Pulse Rate from SpO2 Sensor Respiratory Rate 16 18 Blood Pressure 172/81 H 172/81 H Blood Pressure Mean 111 111 Blood Pressure Position Pulse Oximetry 96 96 Oxygen Delivery Method Room Air Room Air Sepsis Recent Fever Within 48 Hours No Sepsis New/Unexplained Change in Mental Status No Sepsis Action Taken by Nursing No Action Required 06/04/21 19:02 06/04/21 19:30 06/04/21 19:51 Temperature 37.4 C Temperature Source Oral Pulse Rate 82 78 79 Pulse Rate from SpO2 Sensor 87 78 Respiratory Rate 16 16 18 Blood Pressure 163/59 H 176/60 H 163/68 H Blood Pressure Mean 93 98 99 Blood Pressure Position Lying Pulse Oximetry 97 98 Oxygen Delivery Method Room Air Room Air Sepsis Recent Fever Within 48 Hours Sepsis New/Unexplained Change in Mental Status Sepsis Action Taken by [facility] Medications Current Medication List: was personally reviewed by me Laboratory Data Attestation: I reviewed the patient's lab results. Result diagrams: 06/04/21 17:42 06/04/21 17:42 Lab Results 06/04/21 06/04/21 06/04/21 Range/Units 17:42 17:42 17:42 WBC 4.35 L (4.8-10.8) K/uL RBC 2.16 L (4.7-6.1) M/uL Hgb 7.0 L (14.0-18.0) g/dL Hct 23.0 L (42-52) % MCV 106.5 H (80-100) fL MCH 32.4 (25-34) pg MCHC 30.4 L (32-36) g/dL RDW Std Deviation 74.6 H (36.4-46.3) fL RDW Coeff of Casandra 20.3 H (11.5-14.5) % Plt Count 155 (130-400) K/uL MPV 9.3 (7.4-10.4) fL Immature Gran % (Auto) 1.1 % Neut % (Auto) 67.3 % Lymph % (Auto) 20.2 % Bullock % (Auto) 9.4 % Eos % (Auto) 1.8 % Baso % (Auto) 0.2 % Neut # (Auto) 2.92 (1.4-6.5) K/uL Lymph # (Auto) 0.88 L (1.2-3.4) K/uL Bullock # (Auto) 0.41 (0.11-0.59) K/uL Eos # (Auto) 0.08 (0-0.5) K/uL Baso # (Auto) 0.01 (0-0.2) K/uL Immature Gran # (Auto) 0.05 H (0.00-0.02) K/uL Polychromasia 1+ Basophilic Stippling Occasional Anisocytosis Present Tear Drop Cells 1+ PT 10.3 (9.0-12.0) Seconds INR 1.0 (0.9-1.1) APTT 25.1 (21.0-31.0) Seconds PTT Ratio 1.0 Sodium 141 (136-145) mmol/L Potassium 4.2 (3.5-5.1) mmol/L Chloride 97 L (98-107) mmol/L Carbon Dioxide 35 H (21-32) mmol/L Anion Gap 9.0 (3-11) BUN 33 H (7-18) mg/dl Creatinine 5.76 H* (0.6-1.4) mg/dl Est Cr Clr Drug Dosing 10.5 ml/min Est GFR ( Amer) 9.4 ml/min Est GFR (Non-Af Amer) 8.1 ml/min BUN/Creatinine Ratio 5.8 L (10-20) Glucose 162 H (70-99) mg/dl Calcium 8.2 L (8.5-10.1) mg/dl Total Bilirubin 0.4 (0.2-1) mg/dl AST 25 (15-37) U/L ALT 22 (12-78) U/L Alkaline Phosphatase 71 (45-117) U/L Troponin I < 0.015 (0-0.045) ng/ml Total Protein 6.6 (6.4-8.2) gm/dl Albumin 3.0 L (3.4-5.0) gm/dl Globulin 3.6 (2.5-4.0) gm/dl Albumin/Globulin Ratio 0.8 L (0.9-2) Lipase 131 (73-393) U/L COVID-19 Eval Order SARS-CoV-2 (PCR) (Negative) Blood Type Antibody Screen Crossmatch 06/04/21 06/04/21 06/04/21 Range/Units 17:53 18:00 18:00 WBC (4.8-10.8) K/uL RBC (4.7-6.1) M/uL Hgb (14.0-18.0) g/dL Hct (42-52) % MCV (80-100) fL MCH (25-34) pg MCHC (32-36) g/dL RDW Std Deviation (36.4-46.3) fL RDW Coeff of Casandra (11.5-14.5) % Plt Count (130-400) K/uL MPV (7.4-10.4) fL Immature Gran % (Auto) % Neut % (Auto) % Lymph % (Auto) % Bullock % (Auto) % Eos % (Auto) % Baso % (Auto) % Neut # (Auto) (1.4-6.5) K/uL Lymph # (Auto) (1.2-3.4) K/uL Bullock # (Auto) (0.11-0.59) K/uL Eos # (Auto) (0-0.5) K/uL Baso # (Auto) (0-0.2) K/uL Immature Gran # (Auto) (0.00-0.02) K/uL Polychromasia Basophilic Stippling Anisocytosis Tear Drop Cells PT (9.0-12.0) Seconds INR (0.9-1.1) APTT (21.0-31.0) Seconds PTT Ratio Sodium (136-145) mmol/L Potassium (3.5-5.1) mmol/L Chloride (98-107) mmol/L Carbon Dioxide (21-32) mmol/L Anion Gap (3-11) BUN (7-18) mg/dl Creatinine (0.6-1.4) mg/dl Est Cr Clr Drug Dosing ml/min Est GFR ( Amer) ml/min Est GFR (Non-Af Amer) ml/min BUN/Creatinine Ratio (10-20) Glucose (70-99) mg/dl Calcium (8.5-10.1) mg/dl Total Bilirubin (0.2-1) mg/dl AST (15-37) U/L ALT (12-78) U/L Alkaline Phosphatase (45-117) U/L Troponin I (0-0.045) ng/ml Total Protein (6.4-8.2) gm/dl Albumin (3.4-5.0) gm/dl Globulin (2.5-4.0) gm/dl Albumin/Globulin Ratio (0.9-2) Lipase (73-393) U/L COVID-19 Eval Order Covid19 at [facility] [place] SARS-CoV-2 (PCR) POSITIVE A* (Negative) Blood Type A Negative Antibody Screen NEGATIVE Crossmatch See Detail Imaging Data Radiologist's Impression: Chest X-Ray 06/04/21 17:42 SINGLE VIEW CHEST CLINICAL HISTORY: Atypical chest pain. FINDINGS: An AP, portable, upright chest radiograph is compared to study dated 05/16/2021 and correlated with chest CT dated 01/09/2021. The examination is degraded by portable technique and apical lordotic positioning. The heart is enlarged and there is atherosclerotic calcification of the thoracic aorta. The pulmonary vasculature is noncongested. Emphysema and chronic interstitial t hickening are similar to previous. Scarring/atelectasis is noted at the lung bases. No airspace consolidation or large pleural effusion is identified. There is no pneumothorax. The skeletal structures are osteopenic. The bony thorax appears intact. IMPRESSION: Cardiomegaly and emphysema with no acute cardiopulmonary abnormality Electronically signed by: Bowen Martinez M.D. 06/04/2021 6:16 PM Discharge Plan Visit Data Chief Complaint: Chest Pain Stated Complaint: Chest Pain ED Provider: Franco Sterling Discharge Problem: Chest pain, ESRD (end stage renal disease) on dialysis, Anemia, Chronic upper GI bleeding Patient Disposition: Admitted As Inpatient Condition: Good Discharge Instructions Interventions: ED Discharge Assessment Last Done: 06/04/21 22:58
[2021-06-04 17:53] LABS: Basophils # (auto) 0.01 K/uL (0-0.2); Basophils % (auto) 0.2 %; Eosinophils # (auto) 0.08 K/uL (0-0.5); Eosinophils % (auto) 1.8 %; Immature Granulocytes # (auto) 0.05 K/uL (0.00-0.02); Immature Granulocytes % (auto) 1.1 %; Lymphocytes # (auto) 0.88 K/uL (1.2-3.4); Lymphocytes % (auto) 20.2 %; Mean Corpuscular Hemoglobin 32.4 pg (25-34); Mean Corpuscular Hgb Conc 30.4 g/dL (32-36); Mean Corpuscular Volume 106.5 fL (80-100); Mean Platelet Volume 9.3 fL (7.4-10.4); Monocytes # (auto) 0.41 K/uL (0.11-0.59); Monocytes % (auto) 9.4 %; Neutrophils # (auto) 2.92 K/uL (1.4-6.5); Neutrophils % (auto) 67.3 %; Platelet Count 155 K/uL (130-400); RDW Coefficient of Variation 20.3 % (11.5-14.5); RDW Standard Deviation 74.6 fL (36.4-46.3); Red Blood Count 2.16 M/uL (4.7-6.1); White Blood Count 4.35 K/uL (4.8-10.8)
[2021-06-04 18:03] LABS: Partial Thromboplastin Time 25.1 Seconds (21.0-31.0); Prothrombin Time 10.3 Seconds (9.0-12.0)
--- NOTE | 2021-06-04 18:18 | XRay Report ---
SINGLE VIEW CHEST CLINICAL HISTORY: Atypical chest pain. FINDINGS: An AP, portable, upright chest radiograph is compared to study dated 05/16/2021 and correlate d with chest CT dated 01/09/2021. The examination is degraded by portable technique and apical lordoti c positioning. The heart is enlarged and there is atherosclerotic calcification of the thoracic aorta . The pulmonary vasculature is noncongested. Emphysema and chronic interstitial thickening are simila r to previous. Scarring/atelectasis is noted at the lung bases. No airspace consolidation or large pl eural effusion is identified. There is no pneumothorax. The skeletal structures are osteopenic. The b natalya thorax appears intact. IMPRESSION: Cardiomegaly and emphysema with no acute cardiopulmonary abnormality Electronically signed by: Bowen Martinez M.D. 06/04/2021 6:16 PM
[2021-06-04 18:23] LABS: Alanine Aminotransferase 22 U/L (12-78); Albumin Globulin Ratio 0.8 (0.9-2); Alkaline Phosphatase 71 U/L (45-117); Aspartate Aminotransferase 25 U/L (15-37); BUN Creatinine Ratio 5.8 (10-20); Bilirubin,Total 0.4 mg/dl (0.2-1); Blood Urea Nitrogen 33 mg/dl (7-18); Calcium 8.2 mg/dl (8.5-10.1); Carbon Dioxide 35 mmol/L (21-32); Chloride 97 mmol/L (98-107); Creatinine Clr Calc Pharmacy 10.5 ml/min; Est GFR (African American) 9.4 ml/min; Est GFR (Non-African American) 8.1 ml/min; Globulin 3.6 gm/dl (2.5-4.0); Glucose 162 mg/dl (70-99); Lipase 131 U/L (73-393); Potassium 4.2 mmol/L (3.5-5.1); Sodium 141 mmol/L (136-145); Total Protein 6.6 gm/dl (6.4-8.2); Troponin I < 0.015 ng/ml (0-0.045)
[2021-06-04 18:32] LABS: Anisocytosis Present; Basophilic Stippling Occasional; Polychromasia 1+; Tear Drop Cells 1+
[2021-06-04] MEDS ORDERED: SODIUM CHLORIDE 0.9% 250 ML IV PRN (18:36)
[2021-06-04] MEDS ORDERED: PHARMACY GLYCEMIC MGMT CONSULT PRN (20:04)
--- NOTE | 2021-06-04 20:06 | History & Physical Report ---
Date of Service June 04, 2021 Assessment & Plan (1) Anemia: Plan: Anemia/chronic GI bleeding/GAVE- Most recent admission for transfusion on 05/17/2021 We will transfuse 2 units PRBCs, already written for by the ED. Repeat laboratories in a.m. No further work-up needed (2) Chronic GI bleeding: Plan: See above (3) GAVE (gastric antral vascular ectasia): Plan: See above (4) ESRD (end stage renal disease) on dialysis: Plan: Dialysis on Saturday, and Saturday Consult nephrology if stays in hospital longer (5) Sjogrens syndrome: Plan: Continue routine medications (6) T2DM (type 2 diabetes mellitus): Plan: Glycemic consult (7) Chronic venous insufficiency: Plan: No edema on examination (8) Dyslipidemia: Plan: Continue pravastatin (9) COVID-19: Plan: Patient was positive and asymptomatic for COVID-19 in November. Patient was negative for COVID-19 on 05/17/2021 when admitted Patient is positive and asymptomatic for COVID-19 in the ED this evening. He will be placed in isolation, but not in the COVID-19 unit The patient did have complete COVID-19 vaccination series History of Present Illness Chief Complaint: The patient presents to the emergency department with recurrent symptoms of shortness of breath and chest discomfort, consistent with his usual presentation when his hemoglobin is low. Primary Care Provider: Noel Raymundo MD The patient is a 86-year-old male with a past medical history including chronic anemia, first-degree heart block, UTI, ESRD on HD, Sjogren's syndrome, LIP, diabetes mellitus, prostate cancer, chronic venous insufficiency, liver cirrhosis, COPD with pulmonary nodules, AV fistula thrombosis, pulmonary hypertension, bullous emphysema, diabetic nephropathy, diabetic peripheral neuropathy, radiation cystitis, radiation proctitis, GAVE,, dyslipidemia and hypertension. Patient presents to the emergency department with his usual symptoms of shortness of breath and intermittent chest discomfort. He came to the emergency department figuring that his hemoglobin was low and had been scheduled to get transfusion tomorrow morning in the outpatient setting. Work-up in the emergency department included the following abnormal labs: Hemoglobin 7.0, hematocrit 23.0, creatinine 5.76, glucose 162, albumin 3.0. Patient did test COVID-19 positive in the ED this evening, but is asymptomatic. He reports being positive in November and asymptomatic, and was negative 2 weeks ago Allergies Allergy/AdvReac Type Severity Reaction Status Date / Time clarithromycin AdvReac Intermediate confusion Verified 06/04/21 18:21 fish oil AdvReac Intermediate hx of Verified 06/04/21 18:21 hemorrhage in past Sulfa (Sulfonamide AdvReac Intermediate severe Verified 06/04/21 18:21 Antibiotics) agitation/delirium Home Medications Medication Instructions Recorded Confirmed Type vit B complx, C-iron 8 mg-folic 1 tab PO QAM tab 03/05/19 06/04/21 History acid 800 mcg-D3 1,000 unit-zinc tablet (ProRenal) diltiazem HCl 120 mg 120 mg PO QAM #90 cap 12/19/20 06/04/21 Rx capsule,extended release 24 hr insulin aspar prot-insulin aspart See Rx Instructions SUBCUT BID 02/09/21 06/04/21 Rx 100 unit/mL (70-30) subcutaneous #135 ml pen (Novolog Mix 70-30FlexPen U-100) pravastatin 40 mg tablet 40 mg PO QPM #90 tab 03/06/21 06/04/21 Rx calcium acetate(phosphat bind) 667 2,001 mg PO TIDM cap 05/03/21 06/04/21 History mg capsule docusate sodium 50 mg capsule 50 mg PO DAILY PRN cap 05/03/21 06/04/21 History (Colace Clear) folic acid 1 mg tablet 1 mg PO QAM #90 tab 05/22/21 06/04/21 Rx aspirin 81 mg tablet,delayed 81 mg PO DAILY 06/04/21 06/04/21 History release (Aspirin Low Dose) metoprolol tartrate 25 mg tablet 37.5 mg PO BID 06/04/21 06/04/21 History Past Med/Surg History Medical History (Updated 06/04/21 @ 20:47 by Ronnell Pittman MD) Acute dyspnea Anemia Breathlessness 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 S/P EGD WITH CAUTERIZATION 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 COVID-19 Diabetic neuropathy Dyslipidemia Emphysema lung suggested per CXR End-stage renal disease on hemodialysis DIALYSIS SATURDAY/SATURDAY/SATURDAY AT [facility] [place] VIA PERMACATH GAVE (gastric antral vascular ectasia) Gout Hearing deficit LEFT History of blood transfusion 2/2 GIB felt r/t radiation therapy s/p total of 6 units PRBC's since 10/2018 Hypertension Non-occlusive coronary artery disease Nontoxic multinodular goiter Osteoarthritis Prostate cancer S/P SURGERY, XRT Prostate cancer Pulmonary nodules UNDER SURVEILLANCE T2DM (type 2 diabetes mellitus) Thrombocytopenia Transient ischemic attack (TIA) 2014--no deficits, no neurologist Surgical History Amputation of left little finger H/O prostatectomy History of arthroscopy LEFT KNEE History of bowel resection BOWEL LACERATION DURING ATTEMPTING POLYPECTOMY History of cardiac cath X3 = NO STENTS History of cataract surgery RIGHT/LEFT History of colonoscopy History of esophagogastroduodenoscopy (EGD) + CAUTERIZATION (/ GIB) History of surgery fistulogram with Dr. Hanna through Right AV fistula 08/17/19 History of tooth extraction S/P arteriovenous (AV) fistula creation LEFT S/P arteriovenous (AV) fistula creation right 05/[address] Hanna S/P dialysis catheter insertion Permcath + attempted thrombectomy: 04/2019: MAC sedation at [facility] Family History Father Family history of diabetes mellitus Hypertension Brother Prostate cancer Mother Heart disease Hypertension Denies family history of Ovarian cancer Breast cancer Lung cancer Colorectal cancer Social History Smoking Status: Never smoker Second Hand Exposure: Yes (parents smoked/ smoked); Hx Alcohol Use: No Hx Substance Use: No Preferred Language: [place] Communication Ability: Effective Visual Impairment: No Limitations Hearing Ability: Use of Hearing Aid Medical Grade Shoemaker Required: No Beliefs That Will Affect Care: None marital status: Current Living Situation: Other Current Living Situation Comment: Lives with Grandson current occupational status: retired How many Children do You have: 1 Feels Safe at Home: Yes Childhood Exposure to Second-Hand Smoke: Yes Diet Comment: regular caffeine: Yes (coffee, once in a while) during the past year weight has: remained stable Dental Care, Regularly: Yes Physical Activity Frequency: Does not Exercise Seatbelt Use: always Sunscreen Use: No Assistive Devices: Denture - Upper and Walker Review of Systems Review of Systems: The patient denies cough, lower extremity swelling, sore throat, fevers, chills, sweats, nausea, vomiting, diarrhea , constipation, abdominal pain, pelvic pain, blood in urine or stool, dysuria, urinary frequency or urgency, lightheadedness, dizziness, headache, memory loss, loss of consciousness, rash, focal weakness, numbness or tingling in arms or legs, generalized arthralgias or myalgias, back or neck pain, or night sweats. The review of systems is otherwise negative other than for that already noted above, and at least 10 systems have been reviewed. Physical Exam Physical Exam: The patient is awake, alert and oriented 3, well developed and well nourished, normocephalic and atraumatic, lying in bed and in no acute distress. HEENT--PERRL, EOMI, mucous membranes and oropharynx normal. Neck--supple. No JVD. No bruits. Thyroid normal, trachea midline, no adenopathy. Heart--normal S1 and S2. No murmurs, rubs or gallops. Lungs--clear bilaterally, no respiratory distress, no accessory muscle use. Abdomen--normal bowel sounds and soft. Nontender. Nondistended. Extremities--no cyanosis or clubbing. No edema. Dermatologic--skin is mildly dry Neurologic--cranial nerves II through XII grossly intact. Rheumatologic--normal range of motion. Psychiatric--normal affect. Results & Data Results & Data ([facility]) Vital Signs (Past 12 Hours) Vital Signs Temp Pulse Resp BP Pulse Ox 06/04/21 19:51 99.3 F 79 18 163/68 H 06/04/21 19:30 78 16 176/60 H 98 06/04/21 19:02 82 16 163/59 H 97 06/04/21 17:44 98.4 F 103 H 18 172/81 H 96 06/04/21 17:42 96 06/04/21 17:38 83 16 172/81 H Laboratory Results Laboratory Results WBC 4.35 K/uL (4.8-10.8) L 06/04/21 17:42 RBC 2.16 M/uL (4.7-6.1) L 06/04/21 17:42 Hgb 7.0 g/dL (14.0-18.0) L 06/04/21 17:42 Hct 23.0 % (42-52) L 06/04/21 17:42 MCV 106.5 fL (80-100) H 06/04/21 17:42 MCH 32.4 pg (25-34) 06/04/21 17:42 MCHC 30.4 g/dL (32-36) L 06/04/21 17:42 RDW Std Deviation 74.6 fL (36.4-46.3) H 06/04/21 17:42 RDW Coeff of Casandra 20.3 % (11.5-14.5) H 06/04/21 17:42 Plt Count 155 K/uL (130-400) 06/04/21 17:42 MPV 9.3 fL (7.4-10.4) 06/04/21 17:42 Immature Gran % (Auto) 1.1 % 06/04/21 17:42 Neut % (Auto) 67.3 % 06/04/21 17:42 Lymph % (Auto) 20.2 % 06/04/21 17:42 [place] % (Auto) 9.4 % 06/04/21 17:42 Eos % (Auto) 1.8 % 06/04/21 17:42 Baso % (Auto) 0.2 % 06/04/21 17:42 Neut # (Auto) 2.92 K/uL (1.4-6.5) 06/04/21 17:42 Lymph # (Auto) 0.88 K/uL (1.2-3.4) L 06/04/21 17:42 [place] # (Auto) 0.41 K/uL (0.11-0.59) 06/04/21 17:42 Eos # (Auto) 0.08 K/uL (0-0.5) 06/04/21 17:42 Baso # (Auto) 0.01 K/uL (0-0.2) 06/04/21 17:42 Immature Gran # (Auto) 0.05 K/uL (0.00-0.02) H 06/04/21 17:42 Polychromasia 1+ 06/04/21 17:42 Basophilic Stippling Occasional 06/04/21 17:42 Anisocytosis Present 06/04/21 17:42 Tear Drop Cells 1+ 06/04/21 17:42 PT 10.3 Seconds (9.0-12.0) 06/04/21 17:42 INR 1.0 (0.9-1.1) 06/04/21 17:42 APTT 25.1 Seconds (21.0-31.0) 06/04/21 17:42 PTT Ratio 1.0 06/04/21 17:42 Sodium 141 mmol/L (136-145) 06/04/21 17:42 Potassium 4.2 mmol/L (3.5-5.1) 06/04/21 17:42 Chloride 97 mmol/L (98-107) L 06/04/21 17:42 Carbon Dioxide 35 mmol/L (21-32) H 06/04/21 17:42 Anion Gap 9.0 (3-11) 06/04/21 17:42 BUN 33 mg/dl (7-18) H 06/04/21 17:42 Creatinine 5.76 mg/dl (0.6-1.4) H* 06/04/21 17:42 Est Cr Clr Drug Dosing 10.5 ml/min 06/04/21 17:42 Est GFR ( Amer) 9.4 ml/min 06/04/21 17:42 Est GFR (Non-Af Amer) 8.1 ml/min 06/04/21 17:42 BUN/Creatinine Ratio 5.8 (10-20) L 06/04/21 17:42 Glucose 162 mg/dl (70-99) H 06/04/21 17:42 Calcium 8.2 mg/dl (8.5-10.1) L 06/04/21 17:42 Total Bilirubin 0.4 mg/dl (0.2-1) 06/04/21 17:42 AST 25 U/L (15-37) 06/04/21 17:42 ALT 22 U/L (12-78) 06/04/21 17:42 Alkaline Phosphatase 71 U/L (45-117) 06/04/21 17:42 Troponin I < 0.015 ng/ml (0-0.045) 06/04/21 17:42 Total Protein 6.6 gm/dl (6.4-8.2) 06/04/21 17:42 Albumin 3.0 gm/dl (3.4-5.0) L 06/04/21 17:42 Globulin 3.6 gm/dl (2.5-4.0) 06/04/21 17:42 Albumin/Globulin Ratio 0.8 (0.9-2) L 06/04/21 17:42 Lipase 131 U/L (73-393) 06/04/21 17:42 COVID-19 Eval Order Covid19 at [facility] 06/04/21 18:00 SARS-CoV-2 (PCR) POSITIVE (Negative) A* 06/04/21 18:00 Blood Type A Negative 06/04/21 17:53 Antibody Screen NEGATIVE 06/04/21 17:53 Crossmatch See Detail 06/04/21 17:53 Impressions Chest X-Ray 06/04/21 17:42 SINGLE VIEW CHEST CLINICAL HISTORY: Atypical chest pain. FINDINGS: An AP, portable, upright chest radiograph is compared to study dated 05/16/2021 and correlated with chest CT dated 01/09/2021. The examination is degraded by portable technique and apical lordotic positioning. The heart is enlarged and there is atherosclerotic calcification of the thoracic aorta. The pulmonary vasculature is noncongested. Emphysema and chronic interstitial thickening are similar to previous. Scarring/atelectasis is noted at the lung bases. No airspace consolidation or large pleural effusion is identified. There is no pneumothorax. The skeletal structures are osteopenic. The bony thorax appears intact. IMPRESSION: Cardiomegaly and emphysema with no acute cardiopulmonary abnormality Electronically signed by: Bowen Martinez M.D. 06/04/2021 6:16 PM Code Status & VTE Plan Code Status Full code VTE Prophylaxis Plan VTE Prophylaxis will be ordered: Yes PG Care Time/CCT Total # of Minutes Spent Total Time Spent with Patient: Total time spent is greater than 50% in coordination of care (as documented) at patient's floor/unit and/or counseling patient: Coding Level of Care Code INT OBSERVATION CARE 70M LVL 3 Diagnoses Anemia D64.9 Anemia type: unspecified type ESRD (end stage renal disease) on dialysis N18.6; Z99.2 Sjogrens syndrome M35.00 T2DM (type 2 diabetes mellitus) E11.9 Chronic venous insufficiency I87.2 GAVE (gastric antral vascular ectasia) K31.819 Dyslipidemia E78.5 Chronic GI bleeding K92.2 COVID-19 U07.1 (1) Anemia Anemia type: unspecified type Qualified Code(s): D64.9 - Anemia, unspecified
[2021-06-04] MEDS ORDERED: ONDANSETRON INJ 2 MG/ML 2 ML VIAL IV PRN (23:31)
[2021-06-04] MEDS ORDERED: PRAVASTATIN SOD 40 MG TAB PO SCH (23:31)
[2021-06-04] MEDS ORDERED: ACETAMINOPHEN 325 MG TAB PO PRN (23:31)
[2021-06-04] MEDS ORDERED: DOCUSATE SODIUM SYRUP 100 MG/10 ML UDC PO PRN (23:31)
[2021-06-04] MEDS ORDERED: GLUCOSE 10 TABS/TUBE PO PRN (23:45)
[2021-06-04] MEDS ORDERED: GLUCAGON FOR INJ 1 MG VIAL IM PRN (23:45)
[2021-06-04] MEDS ORDERED: GLUCOSE 40% GEL 15 GM TUBE PO PRN (23:45)
[2021-06-04] MEDS ORDERED: DEXTROSE 50% 50 ML SYRINGE IV PRN (23:45)
[2021-06-04] MEDS ORDERED: CARBOHYDRATES FOR HYPOGLYCEMIA PO PRN (23:45)
[2021-06-05] MEDS ORDERED: INSULIN HUMAN NPH SC ONE
[2021-06-05] MEDS ORDERED: SODIUM CHLORIDE 0.9% 250 ML IV PRN (00:02)
[2021-06-05] MEDS: METOPROLOL TARTRATE 25 MG TAB PO SCH ×2 (00:42→08:15)
[2021-06-05] MEDS: INSULIN ASPART 100 UNITS/ML 3 ML PEN SC SCH ×3 (00:52→12:40)
[2021-06-05] MEDS ORDERED: INSULIN HUMAN NPH SC SCH ×2 (08:00→17:00)
[2021-06-05] MEDS: CALCIUM ACETATE 667 MG CAP/TAB PO SCH ×2 (08:16→12:40)
[2021-06-05] MEDS ORDERED: FOLIC ACID 1 MG TAB PO SCH (09:00)
[2021-06-05] MEDS ORDERED: dilTIAZem HCL 120 MG CAPCR PO SCH (09:00)
[2021-06-05] MEDS ORDERED: ASPIRIN 81 MG ECTAB PO SCH (09:00)
[2021-06-05] MEDS ORDERED: CEROVITE ADV FORMULA TAB PO SCH (09:00)
[2021-06-05 09:18] LABS: Hematocrit (blood only) 31.4 % (42-52); Mean Corpuscular Hemoglobin 31.7 pg (25-34); Mean Corpuscular Hgb Conc 31.8 g/dL (32-36); Mean Corpuscular Volume 99.7 fL (80-100); Mean Platelet Volume 9.3 fL (7.4-10.4); Platelet Count 132 K/uL (130-400); RDW Coefficient of Variation 21.5 % (11.5-14.5); RDW Standard Deviation 73.6 fL (36.4-46.3); Red Blood Count 3.15 M/uL (4.7-6.1); White Blood Count 6.02 K/uL (4.8-10.8)
[2021-06-05 09:20] LABS: Anisocytosis Present; Basophils # (auto) 0.01 K/uL (0-0.2); Basophils % (auto) 0.2 %; Eosinophils # (auto) 0.12 K/uL (0-0.5); Immature Granulocytes # (auto) 0.06 K/uL (0.00-0.02); Lymphocytes # (auto) 1.28 K/uL (1.2-3.4); Lymphocytes % (auto) 21.3 %; Monocytes # (auto) 0.38 K/uL (0.11-0.59); Monocytes % (auto) 6.3 %; Neutrophils # (auto) 4.17 K/uL (1.4-6.5); Neutrophils % (auto) 69.2 %; Polychromasia 1+
[2021-06-05 09:46] LABS: Albumin Globulin Ratio 0.8 (0.9-2); Albumin Level 3.1 gm/dl (3.4-5.0); BUN Creatinine Ratio 6.2 (10-20); Bilirubin,Total 0.7 mg/dl (0.2-1); Calcium 8.5 mg/dl (8.5-10.1); Creatinine Clr Calc Pharmacy 8.6 ml/min; Est GFR (African American) 7.5 ml/min; Est GFR (Non-African American) 6.5 ml/min; Globulin 4.1 gm/dl (2.5-4.0); Potassium 4.5 mmol/L (3.5-5.1); Total Protein 7.2 gm/dl (6.4-8.2)
--- NOTE | 2021-06-05 12:32 | Discharge Summary ---
Date of Service June 05, 2021 Admission HPI Per Admitting Provider The patient is a 86-year-old male with a past medical history including chronic anemia, first-degree heart block, UTI, ESRD on HD, Sjogren's syndrome, LIP, diabetes mellitus, prostate cancer, chronic venous insufficiency, liver cirrhosis, COPD with pulmonary nodules, AV fistula thrombosis, pulmonary hypertension, bullous emphysema, diabetic nephropathy, diabetic peripheral neuropathy, radiation cystitis, radiation proctitis, GAVE,, dyslipidemia and hypertension. Patient presents to the emergency department with his usual symptoms of shortness of breath and intermittent chest discomfort. He came to the emergency department figuring that his hemoglobin was low and had been scheduled to get transfusion tomorrow morning in the outpatient setting. Work-up in the emergency department included the following abnormal labs: Hemoglobin 7.0, hematocrit 23.0, creatinine 5.76, glucose 162, albumin 3.0. Patient did test COVID-19 positive in the ED this evening, but is asymptomatic. He reports being positive in November and asymptomatic, and was negative 2 weeks ago Principal Diagnosis Symptomatic anemia, COVID-19 Discharge Exam Constitutional WD/WN, vitals as above Eyes + anicteric sclerae ENMT external ear and nose normal, oropharynx normal Neck trachea midline, no thyromegaly Respiratory normal respiratory effort, lungs clear to auscultation Cardiovascular RRR, no murmur, no edema Chest (Breasts) Chest: normal inspection of chest Gastrointestinal (Abdomen) normal bowel sounds, soft, nontender, no hepatosplenomegaly Percussion/Palpation: + hernia (Ventral, reducible) Musculoskeletal Extremities: extremities normal to inspection; no cyanosis and no clubbing Skin no rashes, warm and dry Neurologic moves all extremities and awake; no focal motor deficits Psychiatric A+Ox3, euthymic affect Lymphatic no lymphedema Discharge Data Allergies Allergy/AdvReac Type Severity Reaction Status Date / Time clarithromycin AdvReac Intermediate confusion Verified 06/04/21 18:21 fish oil AdvReac Intermediate hx of Verified 06/04/21 18:21 hemorrhage in past Sulfa (Sulfonamide AdvReac Intermediate severe Verified 06/04/21 18:21 Antibiotics) agitation/delirium Consultations 06/04/21 18:36 ED Decision to Admit Stat Hospital Course (1) Anemia: Anemia/chronic GI bleeding/GAVE-also has a history of radiation proctitis with BR blood per rectum at times Most recent admission for transfusion on 05/17/2021 Was admitted and transfused 2 units PRBCs Hemoglobin up to 10.0 on the day of discharge and he was feeling very well No further work-up needed, no GI consultation needed Recommend discontinuing aspirin 81 mg daily (2) Chronic GI bleeding: See above (3) GAVE (gastric antral vascular ectasia): See above (4) ESRD (end stage renal disease) on dialysis: Dialysis on Saturday, and Saturday Arrange for him to have dialysis at the [facility] dialysis center while he is Covid-19+ (5) Sjogrens syndrome: Continue routine medications (6) T2DM (type 2 diabetes mellitus): Restart home medications upon discharge (7) Chronic venous insufficiency: No edema on examination Has SOCORRO hose in place (8) Dyslipidemia: Continue pravastatin (9) COVID-19: Patient was positive and asymptomatic for COVID-19 in November. Patient was negative for COVID-19 on 05/17/2021 when admitted Patient is positive and asymptomatic for COVID-19 this admission The patient did have complete COVID-19 vaccination series This likely does represent a reinfection, however it is very mild/asymptomatic case since he has both natural immunity and immunity from vaccines. Recommended quarantine for 10 days at home and he is going to the [facility] dialysis unit with other Covid patients Also recommended his grandson that lives with him get tested for COVID-19 also Gave precautions to return if has shortness of breath, cough, fevers, or any other acute concerns representing progression of COVID-19 illness Disposition-stable for discharge home Total Time Total Time Spent Total Time Spent (In Minutes): 40 minutes Discharge Plan Discharge Items Patient Disposition: Home - Self-Care Reason For Visit: ANEMIA Discharge Diagnosis: Symptomatic anemia, Covid-19 Condition on Discharge: Good Activity: Resume your previous activity Non-emergency contact: Primary Care Provider Call non-emergency contact if: you have any medication questions, your symptoms worsen and you have a fever Follow-up/Referrals: Noel Raymundo MD [Primary Care Provider] - (Follow-up within 2 weeks) Diet: Carb Consistent or DM2 and Dialysis Renal Addtl Attending Provider Instructions: You are admitted for symptomatic anemia and transfused 2 units of red blood cells. Unfortunately, you tested positive again for Covid-19. You are not having any symptoms of Covid-19, but this likely does represent a reinfection. Hopefully, you will have a mild case of Covid-19 because you have been vaccinated and have natural immunity to Covid-19 from your prior infection. If you develop worsening shortness of breath, fevers, cough, or any other acute concern or symptom, please contact your doctor right away to discuss. Because you have Covid-19, you will need to report to [facility] for dialysis starting Saturday at 7 AM. You should remain in quarantine other than going to dialysis until 06/14/2021. Pending Studies at Discharge: No Stand-Alone Forms: My [facility] Medications and DC Order Prescriptions: Continued insulin asp prt-insulin aspart [Novolog Mix 70-30FlexPen U-100] 100 unit/mL (70-30) insulin pen See Rx Instructions subcut BID Qty: 135 RF: 3 pravastatin 40 mg tablet 40 mg PO QPM Qty: 90 RF: 3 ProRenal 8 mg iron-800 mcg-1,000 unit tablet 1 tab PO QAM RF: 0 calcium acetate(phosphat bind) 667 mg capsule 2,001 mg PO TIDM RF: 0 diltiazem HCl 120 mg capsule,extended release 24hr 120 mg PO QAM Qty: 90 RF: 3 folic acid 1 mg tablet 1 mg PO QAM Qty: 90 RF: 3 Colace Clear 50 mg capsule 50 mg PO DAILY PRN (Reason: Constipation) RF: 0 metoprolol tartrate 25 mg tablet 37.5 mg PO BID RF: 0 Discontinued aspirin [Aspirin Low Dose] 81 mg Tablet,Delayed Release (Dr/Ec) 81 mg PO DAILY RF: 0 Discharge Orders: Discharge Order (Routine); Ordered 06/05/21 Ordered By: Oly Capone Admission Data Admit Date/Time: 06/04/21 20:00 Attending Provider: Oly Capone Admit Provider: Ronnell Pittman Primary Care Provider: Noel Raymundo Other Providers: Ronnell Pittman Coding Level of Care Code D/C DAY MANAGEMENT >30 MINS Diagnoses Anemia D64.9 Anemia type: unspecified type Chronic GI bleeding K92.2 GAVE (gastric antral vascular ectasia) K31.819 ESRD (end stage renal disease) on dialysis N18.6; Z99.2 Sjogrens syndrome M35.00 T2DM (type 2 diabetes mellitus) E11.9 Chronic venous insufficiency I87.2 Dyslipidemia E78.5 COVID-19 U07.1
--- NOTE | 2021-06-07 10:10 | Electrocardiogram Report ---
Test Reason : Blood Pressure : / mmHG Vent. Rate : 105 BPM Atrial Rate : 105 BPM P-R Int : 000 ms QRS Dur : 088 ms QT Int : 358 ms P-R-T Axes : 000 041 042 degrees QTc Int : 473 ms Sinus rhythm with 1st degree A-V block Cannot rule out Anterior infarct , age undetermined Abnormal ECG When compared with ECG of 17-MAY-2021 10:40, No significant change Confirmed by Spencer Levine ([id number]) on 06/07/2021 10:10:23 AM Referred By: REFERRED SELF Confirmed By:Spencer Levine
== END 2021-06-05 14:17 | disposition home or self-care (01) ==
LOC: 2W 17:29 → ED 17:29 → SUATTDRO 20:00 → 2W 22:58
DX: I44.0 Atrioventricular block, first degree; N18.6 End stage renal disease; M10.9 Gout, unspecified; Z88.1 Allergy status to other antibiotic agents; U07.1 COVID-19; Z99.2 Dependence on renal dialysis; I87.2 Venous insufficiency (chronic) (peripheral); K92.2 Gastrointestinal hemorrhage, unspecified; E78.5 Hyperlipidemia, unspecified; I27.20 Pulmonary hypertension, unspecified; E11.21 Type 2 diabetes mellitus with diabetic nephropathy; Z86.73 Personal history of transient ischemic attack (TIA), and cerebral infarction without residual deficits; M35.00 Sjogren syndrome, unspecified; M19.90 Unspecified osteoarthritis, unspecified site; Z88.2 Allergy status to sulfonamides; K31.819 Angiodysplasia of stomach and duodenum without bleeding; D59.4 Other nonautoimmune hemolytic anemias; E11.42 Type 2 diabetes mellitus with diabetic polyneuropathy

== ENCOUNTER 2021-12-16 09:59 | Inpatient (IN) ==
[2021-12-16] MEDS ORDERED: SODIUM CHLORIDE 0.9% 250 ML IV PRN (10:58)
--- NOTE | 2021-12-16 11:52 | Emergency Department Note ---
History of Present Illness General Chief complaint: Chest Pain Stated complaint: SOB, ABNORMAL LAB Time Seen by Provider: 12/16/21 10:25 History of Present Illness Maximum Pain Intensity: 2 86-year-old male presents to the ED with a chief complaint of my hemoglobin is low as well as feeling weak having some shortness of breath and heaviness in his chest with exertion. He states that he is already had 5 blood transfusions this year and last year had 13 units because of chronic blood loss and kidney failure. He is a dialysis patient. He is scheduled for dialysis today but when he went there, they told him to come here to get checked because of the symptoms. No additional complaints this time. Denies any chest pain or shortness of breath at rest. Home Medications Medication Instructions Recorded Confirmed Type vit B complx, C-iron 8 mg-folic 1 tab PO QAM tab 03/05/19 12/16/21 History acid 800 mcg-D3 1,000 unit-zinc tablet (ProRenal) insulin aspar prot-insulin aspart See Rx Instructions SUBCUT BID 02/09/21 12/16/21 Rx 100 unit/mL (70-30) subcutaneous #135 ml pen (Novolog Mix 70-30FlexPen U-100) pravastatin 40 mg tablet 40 mg PO QPM #90 tab 03/06/21 12/16/21 Rx calcium acetate(phosphat bind) 667 2,001 mg PO TIDM cap 05/03/21 12/16/21 History mg capsule docusate sodium 50 mg capsule 50 mg PO DAILY PRN cap 05/03/21 12/16/21 History (Colace Clear) folic acid 1 mg tablet 1 mg PO QAM #90 tab 05/22/21 12/16/21 Rx metoprolol tartrate 25 mg tablet 37.5 mg PO BID #90 tab 09/15/21 12/16/21 Rx lorazepam 0.5 mg tablet 0.5 mg PO Q12H PRN 12/06/21 12/16/21 History diltiazem HCl 120 mg 120 mg PO QAM #90 cap 12/11/21 12/16/21 Rx capsule,extended release 24 hr Allergies Allergy/AdvReac Type Severity Reaction Status Date / Time clarithromycin AdvReac Intermediate confusion Verified 12/06/21 18:55 fish oil AdvReac Intermediate hx of Verified 12/06/21 18:55 hemorrhage in past Sulfa (Sulfonamide AdvReac Intermediate severe Verified 12/06/21 18:55 Antibiotics) agitation/delirium Past Med/Surg History Medical History Acute dyspnea Anemia Arteriovenous fistula thrombosis AV fistula AV fistula Breathlessness 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 S/P EGD WITH CAUTERIZATION 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 COVID-19 Diabetic neuropathy Dialysis AV fistula malfunction Dyslipidemia Emphysema lung suggested per CXR End-stage renal disease on hemodialysis DIALYSIS SATURDAY/SATURDAY/SATURDAY AT [facility] VIA PERMACATH GAVE (gastric antral vascular ectasia) Gout Hearing deficit LEFT History of blood transfusion 2/2 GIB felt r/t radiation therapy s/p total of 6 units PRBC's since 10/2018 Hypertension Non-occlusive coronary artery disease Nontoxic multinodular goiter Osteoarthritis Phimosis of penis Prostate cancer S/P SURGERY, XRT Prostate cancer Pulmonary nodules UNDER SURVEILLANCE Shortness of breath T2DM (type 2 diabetes mellitus) Thrombocytopenia Transient ischemic attack (TIA) 2014--no deficits, no neurologist Surgical History Amputation of left little finger H/O prostatectomy History of arthroscopy LEFT KNEE History of bowel resection BOWEL LACERATION DURING ATTEMPTING POLYPECTOMY History of cardiac cath X3 = NO STENTS History of cataract surgery RIGHT/LEFT History of colonoscopy History of esophagogastroduodenoscopy (EGD) + CAUTERIZATION (2/2 GIB) History of surgery fistulogram with Dr. Hanna through Right AV fistula 08/17/19 History of tooth extraction S/P arteriovenous (AV) fistula creation LEFT Right side recently ballooned and stented in [facility] S/P arteriovenous (AV) fistula creation right 05/[address] Hanna S/P dialysis catheter insertion Permcath + attempted thrombectomy: 04/2019: MAC sedation at [facility] Family History Father Family history of diabetes mellitus Hypertension Brother Prostate cancer Mother Heart disease Hypertension Denies family history of Ovarian cancer Breast cancer Lung cancer Colorectal cancer Social History Smoking Status: Never smoker Second Hand Exposure: Yes (parents smoked/ smoked); Hx Alcohol Use: No Hx Substance Use: No Preferred Language: Turkish Communication Ability: Effective Visual Impairment: No Limitations Hearing Ability: Normal Vegetable Vendor Required: No Beliefs That Will Affect Care: None marital status: / Current Living Situation: Alone Current Living Situation Comment: Lives with Grandson current occupational status: retired How many Children do You have: 1 Feels Safe at Home: Yes Childhood Exposure to Second-Hand Smoke: Yes Diet Comment: regular caffeine: Yes (coffee, once in a while) during the past year weight has: remained stable Dental Care, Regularly: Yes Physical Activity Frequency: Does not Exercise Seatbelt Use: always Sunscreen Use: No Assistive Devices: Walker Review of Systems A total of 10 systems reviewed and were otherwise negative Physical Exam Vital Signs Vital Signs - 24 hr 12/16/21 10:05 12/16/21 10:15 12/16/21 11:47 Temperature 36.9 C Temperature Source Oral Pulse Rate 73 Pulse Rate [Apical] Pulse Rhythm Regular Pulse Rhythm [Apical] Pulse Strength [Apical] Respiratory Rate 18 Respiratory Effort / Characteristics Non-Labored Spontaneous Non-Labored Spontaneous Respiratory Depth Normal Normal Respiratory Pattern Regular Blood Pressure 196/66 H Blood Pressure [Left Arm] Blood Pressure Mean 109 Blood Pressure Mean [Left Arm] Blood Pressure Position Lying Blood Pressure Position [Left Arm] Pulse Oximetry 97 97 Oxygen Delivery Method Room Air Room Air Room Air Oxygen Flow Rate Sepsis Recent Fever Within 48 Hours No Sepsis New/Unexplained Change in Mental Status N/A Sepsis Action Taken by Nursing No Action Required 12/16/21 12:04 12/16/21 13:15 12/16/21 13:35 Temperature 36.6 C 36.7 C Temperature Source Oral Oral Pulse Rate 66 64 Pulse Rate [Apical] 67 Pulse Rhythm Pulse Rhythm [Apical] Pulse Strength [Apical] Respiratory Rate 18 18 18 Respiratory Effort / Characteristics Respiratory Depth Respiratory Pattern Blood Pressure 162/61 H 163/67 H Blood Pressure [Left Arm] 196/77 H Blood Pressure Mean 94 99 Blood Pressure Mean [Left Arm] 116 Blood Pressure Position Blood Pressure Position [Left Arm] Pulse Oximetry 98 98 96 Oxygen Delivery Method Room Air Oxygen Flow Rate 0 0 Sepsis Recent Fever Within 48 Hours Sepsis New/Unexplained Change in Mental Status Sepsis Action Taken by Nursing 12/16/21 13:50 12/16/21 14:20 12/16/21 15:35 Temperature 36.6 C 36.7 C 37.0 C Temperature Source Oral Oral Oral Pulse Rate 65 74 60 Pulse Rate [Apical] Pulse Rhythm Pulse Rhythm [Apical] Pulse Strength [Apical] Respiratory Rate 19 18 17 Respiratory Effort / Characteristics Respiratory Depth Respiratory Pattern Blood Pressure 150/67 H 147/67 H 141/96 H Blood Pressure [Left Arm] Blood Pressure Mean 94 93 111 Blood Pressure Mean [Left Arm] Blood Pressure Position Sitting Blood Pressure Position [Left Arm] Pulse Oximetry 96 97 93 Oxygen Delivery Method Oxygen Flow Rate 0 Sepsis Recent Fever Within 48 Hours Sepsis New/Unexplained Change in Mental Status Sepsis Action Taken by Nursing 12/16/21 15:56 12/16/21 16:11 12/16/21 16:26 Temperature 36.9 C 36.8 C 37.1 C Temperature Source Oral Oral Oral Pulse Rate 76 73 75 Pulse Rate [Apical] Pulse Rhythm Pulse Rhythm [Apical] Pulse Strength [Apical] Respiratory Rate 24 24 21 Respiratory Effort / Characteristics Respiratory Depth Respiratory Pattern Blood Pressure 177/72 H 171/72 H 184/79 H Blood Pressure [Left Arm] Blood Pressure Mean 107 105 114 Blood Pressure Mean [Left Arm] Blood Pressure Position Lying Blood Pressure Position [Left Arm] Pulse Oximetry 94 94 94 Oxygen Delivery Method Oxygen Flow Rate Sepsis Recent Fever Within 48 Hours Sepsis New/Unexplained Change in Mental Status Sepsis Action Taken by Nursing 12/16/21 17:01 12/16/21 17:03 Temperature 36.7 C Temperature Source Oral Pulse Rate Pulse Rate [Apical] 100 H Pulse Rhythm Pulse Rhythm [Apical] Regular Regular Pulse Strength [Apical] Normal Respiratory Rate 20 Respiratory Effort / Characteristics Non-Labored Spontaneous Respiratory Depth Normal Respiratory Pattern Regular Blood Pressure Blood Pressure [Left Arm] 184/79 H 224/92 H Blood Pressure Mean Blood Pressure Mean [Left Arm] 114 136 Blood Pressure Position Blood Pressure Position [Left Arm] Lying Pulse Oximetry 96 Oxygen Delivery Method Room Air Oxygen Flow Rate Sepsis Recent Fever Within 48 Hours Sepsis New/Unexplained Change in Mental Status Sepsis Action Taken by Nursing CONSTITUTIONAL/VITAL SIGNS: Reviewed / noted above. GENERAL: Non-toxic in appearance. INTEGUMENTARY: Warm, dry, and [place]. HEAD: Normocephalic. EYES: without scleral icterus or trauma. ENT/OROPHARYNX: clear and moist. LYMPHADENOPATHY/NECK: Is supple without lymphadenopathy or meningismus. RESPIRATORY: Clear to auscultation bilaterally. No increased work of breathing. CARDIOVASCULAR: Regular rate and rhythm. GI/ABDOMEN: Soft and nontender. No organomegaly or pulsatile mass. EXTREMITIES: Warm and well perfused. BACK: No CVA tenderness. NEUROLOGICAL: Intact without focal deficits. PSYCHIATRIC: normal affect. MUSCULOSKELETAL: Normally developed with good muscle tone. TRIAGE NURSING DOCUMENTATION REVIEWED. Procedures EJ/Peripheral Line Arm L: Time Out Performed: Yes Skin Cleansed in Sterile Fashion: Yes Size (gauge): 20 IV Secured and Dressing Applied: Yes Patient Tolerated Procedure: well and no complications Additional Comments: Nursing staff was unable to place a peripheral line. Utilizing ultrasound guidance, I did place a 20-gauge peripheral line in the left forearm. Course Administered Medications Discontinued Medications Clonidine HCl (Clonidine Hcl 0.1 Mg Tab) 0.1 mg PO NOW ONE Stop: 12/16/21 12:24 Last Admin: 12/16/21 12:38 Dose: 0.1 mg Documented by: [id number] Furosemide (Furosemide 40 Mg/4 Ml Vial) 80 mg IV ONE ONE Stop: 12/16/21 13:27 Last Admin: 12/16/21 15:33 Dose: 80 mg Documented by: [id number] Critical Care Time Critical Care Time: Yes Total Critical Care Time: 30 I have personally spent 30 minutes of critical care time in the direct management of this patient. This includes bedside care, interpretation of di agnostic studies, and testing, discussion with consultants, patient, and family members, and other required patient management activities. This 30 minutes is in excess of all separately billable procedures. Medical Decision Making Differential Diagnosis The differential that was considered includes acute myocardial infarction, acute coronary syndrome, myocarditis, pericarditis, pericardial effusions /tamponade, esophageal perforation, thoracic aortic dissection, pulmonary embolism, pneumonia, pneumothorax, pancreatitis, shingles, acute cholecystitis, perforated abdominal viscus. Medical Records Attestation: I reviewed the patient's medical records. Home Medications Current Medication List: was personally reviewed by me Laboratory Data Attestation: I reviewed the patient's lab results. Result diagrams: 12/16/21 11:45 12/16/21 11:46 Lab Results 12/16/21 12/16/21 12/16/21 Range/Units 11:45 11:46 11:46 WBC 6.58 (4.8-10.8) K/uL RBC 2.43 L (4.7-6.1) M/uL Hgb 7.1 L (14.0-18.0) g/dL Hct 23.5 L (42-52) % MCV 96.7 (80-100) fL MCH 29.2 (25-34) pg MCHC 30.2 L (32-36) g/dL RDW Std Deviation 61.0 H (36.4-46.3) fL RDW Coeff of Casandra 17.4 H (11.5-14.5) % Plt Count 145 (130-400) K/uL MPV 9.3 (7.4-10.4) fL Immature Gran % (Auto) 0.6 % Neut % (Auto) 75.5 % Lymph % (Auto) 15.2 % [place] % (Auto) 7.1 % Eos % (Auto) 1.4 % Baso % (Auto) 0.2 % Neut # (Auto) 4.97 (1.4-6.5) K/uL Lymph # (Auto) 1.00 L (1.2-3.4) K/uL [place] # (Auto) 0.47 (0.11-0.59) K/uL Eos # (Auto) 0.09 (0-0.5) K/uL Baso # (Auto) 0.01 (0-0.2) K/uL Immature Gran # (Auto) 0.04 H (0.00-0.02) K/uL Polychromasia 1+ Sodium 133 L (136-145) mmol/L Potassium 5.1 (3.5-5.1) mmol/L Chloride 92 L (98-107) mmol/L Carbon Dioxide 32 (21-32) mmol/L Anion Gap 9 (3-11) BUN 49 H (6-23) mg/dl Creatinine 7.33 H* (0.6-1.4) mg/dl Est Cr Clr Drug Dosing 8.3 ml/min Est GFR ( Amer) 7.0 ml/min Est GFR (Non-Af Amer) 6.1 ml/min BUN/Creatinine Ratio 6.7 L (10-20) Glucose 140 H (70-99(Fasting)) mg/dl Calcium 7.8 L (8.5-10.1) mg/dl Total Bilirubin 0.4 (0.2-1.0) mg/dl AST 12 L (13-39) U/L ALT 8 (7-52) U/L Alkaline Phosphatase 56 (34-104) U/L Troponin I 0.03 (0-0.04) ng/ml Total Protein 7.2 (6.0-8.3) gm/dl Albumin 3.6 (3.4-5.0) gm/dl Globulin 3.6 (2.5-4.0) gm/dl Albumin/Globulin Ratio 1.0 (0.9-2) Lipase 18 (11-82) U/L Blood Type A Negative Antibody Screen NEGATIVE Crossmatch See Detail Imaging Data Radiologist's Impression: Chest X-Ray 12/16/21 11:47 XR chest 1V portable CLINICAL HISTORY: Atypical chest pain TECHNIQUE: Single frontal radiograph of the chest was obtained. Comparison: Comparison is made to chest one view 06/04/2021 FINDINGS: No lines and tubes are seen. Calcified aortic knob is seen. Prominence and cephalization of the vasculature is seen. Right greater than left lower lung predominant airspace opacities are seen. No evidence of pleural effusion or pneumothorax. IMPRESSION: Bilateral lower lung predominant airspace opacities which may represent atelectasis, pneumonia, and/or aspiration. Mild pulmonary edema. ACT 112: Negative or not required by law. Electronically signed by: Stan Stern M.D. 12/16/2021 12:13 PM ECG Data Attestation: I personally reviewed and interpreted this ECG as follows: Additional Comments: Twelve-lead EKG: Per my interpretation shows a sinus rhythm at a rate of 74. First-degree AV block. No ST elevation. No PVCs MDM Narrative 86-year-old male with a history of chronic blood loss, dialysis dependent renal failure presents to the ED with a chief complaint of my hemoglobin is low. He states that he has symptoms of generalized weakness, shortness of breath and heaviness in his chest with exertion which are his typical symptoms of his anemia. The patient denies any symptoms currently at rest. No additional complaints. The patient states that he does have chronic GI bleeding and nothing is able to be done about it. He typically just receives blood trans fusions as needed, per the patient. The patient's hemoglobin today is 7.1. His troponin was negative. EKG shows a sinus rhythm at a rate of 74 with first- degree AV block. BUN and creatinine are elevated chronically due to dialysis dependence. Potassium level is normal at this time. Chest x-ray shows some basilar findings as noted above. Clinically he is not in pulmonary edema and does not have pneumonia. This is likely related to atelectasis. The patient was treated with clonidine p.o. for his elevated blood pressure. His blood pressure improved to 162/61. He was given 2 units of blood. The patient was given 80 mg IV Lasix between transfusions. The patient does state that he prod uces about a half a cup of urine per day. The patient will be seen by the hospitalist for further inpatient evaluation and care. The patient did have a bloody bowel movement while here. He was also ordered some IV hydralazine as his blood pressure was elevated after he got up and went to the bathroom and walked back to the bed. Impression & Plan Anemia, Chest pain, Exertional dyspnea, GI bleed, Hypertension Discharge Plan Visit Data Chief Complaint: Chest Pain Stated Complaint: SOB, ABNORMAL LAB ED Provider: Sherwin Gilliland Discharge Problem: Anemia, Chest pain, Exertional dyspnea, GI bleed, Hypertension Patient Disposition: Being Evaluated by Hospitalist Forms Stand Alone Forms: [facility] Prescriptions Prescriptions: No Action insulin asp prt-insulin aspart [Novolog Mix 70-30FlexPen U-100] 100 unit/mL (70-30) insulin pen See Rx Instructions subcut BID Qty: 135 RF: 3 pravastatin 40 mg tablet 40 mg PO QPM Qty: 90 RF: 3 metoprolol tartrate 25 mg tablet 37.5 mg PO BID Qty: 90 RF: 5 diltiazem HCl 120 mg capsule,extended release 24hr 120 mg PO QAM Qty: 90 RF: 3 ProRenal 8 mg iron-800 mcg-1,000 unit tablet 1 tab PO QAM RF: 0 calcium acetate(phosphat bind) 667 mg capsule 2,001 mg PO TIDM RF: 0 folic acid 1 mg tablet 1 mg PO QAM Qty: 90 RF: 3 Colace Clear 50 mg capsule 50 mg PO DAILY PRN (Reason: Constipation) RF: 0 lorazepam 0.5 mg tablet 0.5 mg PO Q12H PRN (Reason: anxiety) RF: 0 Referrals Referrals: Noel Raymundo MD [Primary Care Provider] -
[2021-12-16 12:07] LABS: Basophils # (auto) 0.01 K/uL (0-0.2); Basophils % (auto) 0.2 %; Eosinophils # (auto) 0.09 K/uL (0-0.5); Eosinophils % (auto) 1.4 %; Hematocrit (blood only) 23.5 % (42-52); Hemoglobin 7.1 g/dL (14.0-18.0); Immature Granulocytes # (auto) 0.04 K/uL (0.00-0.02); Immature Granulocytes % (auto) 0.6 %; Lymphocytes % (auto) 15.2 %; Mean Corpuscular Hemoglobin 29.2 pg (25-34); Mean Corpuscular Hgb Conc 30.2 g/dL (32-36); Mean Corpuscular Volume 96.7 fL (80-100); Mean Platelet Volume 9.3 fL (7.4-10.4); Monocytes # (auto) 0.47 K/uL (0.11-0.59); Monocytes % (auto) 7.1 %; Neutrophils # (auto) 4.97 K/uL (1.4-6.5); Neutrophils % (auto) 75.5 %; Platelet Count 145 K/uL (130-400); RDW Coefficient of Variation 17.4 % (11.5-14.5); Red Blood Count 2.43 M/uL (4.7-6.1); White Blood Count 6.58 K/uL (4.8-10.8)
--- NOTE | 2021-12-16 12:14 | XRay Report ---
XR chest 1V portable CLINICAL HISTORY: Atypical chest pain TECHNIQUE: Single frontal radiograph of the chest was obtained. Comparison: Comparison is made to chest one view 06/04/2021 FINDINGS: No lines and tubes are seen. Calcified aortic knob is seen. Prominence and cephalization of the vascu lature is seen. Right greater than left lower lung predominant airspace opacities are seen. No eviden ce of pleural effusion or pneumothorax. IMPRESSION: Bilateral lower lung predominant airspace opacities which may represent atelectasis, pneumonia, and/o r aspiration. Mild pulmonary edema. ACT 112: Negative or not required by law. Electronically signed by: Stan Stern M.D. 12/16/2021 12:13 PM
[2021-12-16 12:20] LABS: Troponin I 0.03 ng/ml (0-0.04)
[2021-12-16 12:22] LABS: Polychromasia 1+
[2021-12-16] MEDS ORDERED: cloNIDine HCL 0.1 MG TAB PO ONE (12:23)
[2021-12-16 12:52] LABS: Albumin Level 3.6 gm/dl (3.4-5.0); BUN Creatinine Ratio 6.7 (10-20); Bilirubin,Total 0.4 mg/dl (0.2-1.0); Calcium 7.8 mg/dl (8.5-10.1); Creatinine Clr Calc Pharmacy 8.3 ml/min; Est GFR (Non-African American) 6.1 ml/min; Globulin 3.6 gm/dl (2.5-4.0); Potassium 5.1 mmol/L (3.5-5.1); Total Protein 7.2 gm/dl (6.0-8.3)
[2021-12-16] MEDS ORDERED: FUROSEMIDE 40 MG/4 ML VIAL IV ONE ×2 (13:26→19:31)
[2021-12-16] MEDS ORDERED: hydrALAZINE HCL 20 MG/ML VIAL IV STA (17:07)
--- NOTE | 2021-12-16 17:48 | History & Physical Report ---
Date of Service December 16, 2021 Assessment & Plan (1) Acute respiratory failure: Plan: approximately 2 hours after the patient's second unit of blood in the emergency department he developed increasing respiratory effort and shortness of breath. He was not hypoxic. Patient only had small amounts of urine produced after his dose of 80 mg of Lasix intravenously prior to the blood transfusion. Patient was given an additional 80 mg IV a Ball catheter was placed and was started on a Lasix drip of 10 mg an hour in addition to Nitropaste as he was markedly hypertensive. He had BiPAP placed in the ER to decrease his work of breathing and a repeat chest x-ray showed increasing interstitial markings worsening at the right base but present bilaterally. The patient did not have a direct history of aspiration fevers chills with productive cough however he was started on cefepime as a precautionary measure as well as garnering blood cultures and he will be have his level upgraded to PCU (2) Anemia: Plan: -Hgb 7.1 today, labs from 12/06 => 7.4, patient notes occasional blood in urine and with BMs, this is chronic and unchanged, GAVE/radiation proctitis, patient has received 13 transfusions in 2020 and 5 so far in 2021. -Pt has received 2 units pRBCs in ED, we will repeat CBC in AM, also collecting iron studies from labs drawn prior to transfusion. -No indication of an acute GI bleed for now, occasional blood after BMs is bright red, without abdominal pain, will hold of on PPI or GI consult today. (3) GAVE (gastric antral vascular ectasia): Plan: -Stable, no signs/symptoms of an UGI bleed today. See above. (4) Chest pain: Plan: -Since last evening, also associated with exertional dyspnea, worse with exertion and relieved with rest, patient states this chest pain is typical for him when he has low Hgb. With a neg troponin and EKG without changes suggestive of infarction. Etiology is most likely secondary to anemia. Some interstitial markings seen on CXR, minimal wheezing on b/l lung bases, pt received 80 IV Lasix in ED to avoid volume overload from RBCs. -Will trend troponin in AM, on tele. -Trend CBC and BMP in am. (5) Hypertension: Plan: -Hypertensive in ED with a BP at one point 224/92. He was given clonidine by ED provider with an order for hydralazine if needed. -Continue metoprolol. (6) Paroxysmal atrial tachycardia: Plan: -On diltiazem and metoprolol, will continue these. (7) End stage renal disease: Plan: -Dialysis , did not have it done today d/t anemia. Patient states he was set to transition to -- schedule this week. -Av fistula on RUE with thrill. -No electrolyte abnormalities today. Pt still produces urine. -Follows with [facility]. -BMP in AM (8) T2DM (type 2 diabetes mellitus): Plan: -Convert home dose insulin (70/30, 72 units in Am, 74 units in PM) --> 40 Lantus BID with sliding scale coverage. -Accucheks achs, heart healthy/CC diet. -Hgba1c in am. (9) Transient ischemic attack (TIA): Plan: -In 2014, no residual symptoms, does not follow with neurology. (10) Acquired phimosis of penis: Plan: -Seen by urology on 12/07, plan for dorsal slit procedure to be done in OR at a later time. Plan: -Admit med-surg with tele. -SCDs for ppx. -DNR/DNI. History of Present Illness Chief Complaint: symptomatic anemia Primary Care Provider: Noel Raymundo MD Patient is an 86 y/o M with PMH of ESRD on HD (), nonobstructive CAD, insulin-dependent DM2, HTN, hyperlipidemia, prostate cancer s/p prostatectomy and XRT, with chronic/recurrent GI bleeds requiring frequent transfusion, anemia, gastric antral vascular ectasia, and paroxysmal atrial tachycardia who presents today from dialysis center due to symptomatic anemia. Patient was at dialysis appt and was found to have Hgb of 7.1 with exertional chest pain and exertional dyspnea. He did note the chest pain is substernal, began last evening and has been consistent since onset, accompanied by exertional dyspnea. He states the way he feels today is consistent with how he has felt in the past when his Hgb is low. 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 He denies palpitations, changes to his chronic cough, fever/chills, abdominal pain, nausea, vomiting, and hematuria. Patient hypertensive in ED, otherwise vital signs stable and within normal limits, Hgb 7.1, troponin neg, mild pulmonary edema seen on CXR, no electrolyte abnormalities. Patient was ordered 2 unites pRBCs, also given 80 IV Lasix, as well as clonidine for BP in Ed. Hospitalist service was consulted for evaluation and admission. Allergies Allergy/AdvReac Type Severity Reaction Status Date / Time clarithromycin AdvReac Intermediate confusion Verified 12/06/21 18:55 fish oil AdvReac Intermediate hx of Verified 12/06/21 18:55 hemorrhage in past Sulfa (Sulfonamide AdvReac Intermediate severe Verified 12/06/21 18:55 Antibiotics) agitation/delirium Home Medications Medication Instructions Recorded Confirmed Type vit B complx, C-iron 8 mg-folic 1 tab PO QAM tab 03/05/19 12/16/21 History acid 800 mcg-D3 1,000 unit-zinc tablet (ProRenal) insulin aspar prot-insulin aspart See Rx Instructions SUBCUT BID 02/09/21 12/16/21 Rx 100 unit/mL (70-30) subcutaneous #135 ml pen (Novolog Mix 70-30FlexPen U-100) pravastatin 40 mg tablet 40 mg PO QPM #90 tab 03/06/21 12/16/21 Rx calcium acetate(phosphat bind) 667 2,001 mg PO TIDM cap 05/03/21 12/16/21 History mg capsule docusate sodium 50 mg capsule 50 mg PO DAILY PRN cap 05/03/21 12/16/21 History (Colace Clear) folic acid 1 mg tablet 1 mg PO QAM #90 tab 05/22/21 12/16/21 Rx metoprolol tartrate 25 mg tablet 37.5 mg PO BID #90 tab 09/15/21 12/16/21 Rx lorazepam 0.5 mg tablet 0.5 mg PO Q12H PRN 12/06/21 12/16/21 History diltiazem HCl 120 mg 120 mg PO QAM #90 cap 12/11/21 12/16/21 Rx capsule,extended release 24 hr Past Med/Surg History Medical History Acute dyspnea Anemia Arteriovenous fistula thrombosis AV fistula AV fistula Breathlessness 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 S/P EGD WITH CAUTERIZATION 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 COVID-19 Diabetic neuropathy Dialysis AV fistula malfunction Dyslipidemia Emphysema lung suggested per CXR End-stage renal disease on hemodialysis DIALYSIS SATURDAY/SATURDAY/SATURDAY AT [facility] [place] VIA PERMACATH GAVE (gastric antral vascular ectasia) Gout Hearing deficit LEFT History of blood transfusion 2/2 GIB felt r/t radiation therapy s/p total of 6 units PRBC's since 10/2018 Hypertension Non-occlusive coronary artery disease Nontoxic multinodular goiter Osteoarthritis Phimosis of penis Prostate cancer S/P SURGERY, XRT Prostate cancer Pulmonary nodules UNDER SURVEILLANCE Shortness of breath T2DM (type 2 diabetes mellitus) Thrombocytopenia Transient ischemic attack (TIA) 2014--no deficits, no neurologist Surgical History Amputation of left little finger H/O prostatectomy History of arthroscopy LEFT KNEE History of bowel resection BOWEL LACERATION DURING ATTEMPTING POLYPECTOMY History of cardiac cath X3 = NO STENTS History of cataract surgery RIGHT/LEFT History of colonoscopy History of esophagogastroduodenoscopy (EGD) + CAUTERIZATION (2/2 GIB) History of surgery fistulogram with Dr. Hanna through Right AV fistula 08/17/19 History of tooth extraction S/P arteriovenous (AV) fistula creation LEFT Right side recently ballooned and stented in [facility] S/P arteriovenous (AV) fistula creation right 05/[address] Hanna S/P dialysis catheter insertion Permcath + attempted thrombectomy: 04/2019: MAC sedation at [facility] Family History Father Family history of diabetes mellitus Hypertension Brother Prostate cancer Mother Heart disease Hypertension Denies family history of Ovarian cancer Breast cancer Lung cancer Colorectal cancer Social History Smoking Status: Never smoker Second Hand Exposure: Yes (parents smoked/ smoked); Hx Alcohol Use: No Hx Substance Use: No Preferred Language: Polish Communication Ability: Effective Visual Impairment: No Limitations Hearing Ability: Normal Real Estate [employer] Required: No Beliefs That Will Affect Care: None marital status: / Current Living Situation: Alone Current Living Situation Comment: Lives with Grandson current occupational status: retired How many Children do You have: 1 Feels Safe at Home: Yes Childhood Exposure to Second-Hand Smoke: Yes Diet Comment: regular caffeine: Yes (coffee, once in a while) during the past year weight has: remained stable Dental Care, Regularly: Yes Physical Activity Frequency: Does not Exercise Seatbelt Use: always Sunscreen Use: No Assistive Devices: Walker Review of Systems Review of Systems: Constitutional: No fever, sweats or chills Eyes: No diplopia, no worsening or blurred vision ENT: normal hearing, no trouble swallowing Respiratory: shortness of breath for 1 day; no change to his chronic cough Cardiovascular: chest pain since last evening without radiation to neck/jaw/extremities; without palpitations Abdomen: No pain, nausea, vomiting, diarrhea or constipation Musculoskeletal: No joint pain, calf pain, swelling Neurologic: No weakness, numbness/tingling, or balance problems Psychiatric: No anxiety or depression Skin: No rash or itch Physical Exam Physical Exam: General: awake, alert, no apparent distress Head: Normocephalic, atraumatic ENT: PERRL, EOMI, no pharyngeal exudate, mucous membranes moist Chest: on 2L NC,some expiratory wheezes heard at b/l bases, otherwise clear to auscultation without adventitious breath sounds Cardiac: Regular rate and rhythm, no murmur, no JVD, normal peripheral pulses, good capillary refill Abdominal: NABS x 4 quadrants, soft, nontender to palpation, no rebound, guarding or tenderness Extremities: Normal inspection, no peripheral edema or erythema, calfs nontender to palpation Psych: Normal mood and affect Neuro: AAO x 3, strength intact bilaterally and rated 5/5, no motor deficits, speech is clear, no peripheral sensory deficits Skin: no rash or erythema Results & Data Results & Data ([facility]) Vital Signs (Past 12 Hours) Vital Signs Temp Pulse Pulse Resp BP BP Pulse Ox 12/16/21 17:24 75 20 188/75 H 100 12/16/21 17:03 36.7 C 100 H 20 224/92 H 96 12/16/21 17:01 184/79 H 12/16/21 16:26 37.1 C 75 21 184/79 H 94 12/16/21 16:11 36.8 C 73 24 171/72 H 94 12/16/21 15:56 36.9 C 76 24 177/72 H 94 12/16/21 15:35 37.0 C 60 17 141/96 H 93 12/16/21 14:20 36.7 C 74 18 147/67 H 97 12/16/21 13:50 36.6 C 65 19 150/67 H 96 12/16/21 13:35 36.7 C 64 18 163/67 H 96 12/16/21 13:15 36.6 C 66 18 162/61 H 98 12/16/21 12:04 67 18 196/77 H 98 12/16/21 11:47 97 12/16/21 10:05 36.9 C 73 18 196/66 H 97 Laboratory Results Abnormal lab results 12/16/21 12/16/21 12/16/21 Range/Units 11:45 11:46 11:46 RBC 2.43 L (4.7-6.1) M/uL Hgb 7.1 L (14.0-18.0) g/dL Hct 23.5 L (42-52) % MCHC 30.2 L (32-36) g/dL RDW Std Deviation 61.0 H (36.4-46.3) fL RDW Coeff of Casandra 17.4 H (11.5-14.5) % Lymph # (Auto) 1.00 L (1.2-3.4) K/uL Immature Gran # (Auto) 0.04 H (0.00-0.02) K/uL Sodium 133 L (136-145) mmol/L Chloride 92 L (98-107) mmol/L BUN 49 H (6-23) mg/dl Creatinine 7.33 H* (0.6-1.4) mg/dl BUN/Creatinine Ratio 6.7 L (10-20) Glucose 140 H (70-99(Fasting)) mg/dl Calcium 7.8 L (8.5-10.1) mg/dl Iron (35-175) mcg/dl Transferrin % Sat (20-50) % AST 12 L (13-39) U/L Crossmatch See Detail 12/16/21 Range/Units 11:46 RBC (4.7-6.1) M/uL Hgb (14.0-18.0) g/dL Hct (42-52) % MCHC (32-36) g/dL RDW Std Deviation (36.4-46.3) fL RDW Coeff of Casandra (11.5-14.5) % Lymph # (Auto) (1.2-3.4) K/uL Immature Gran # (Auto) (0.00-0.02) K/uL Sodium (136-145) mmol/L Chloride (98-107) mmol/L BUN (6-23) mg/dl Creatinine (0.6-1.4) mg/dl BUN/Creatinine Ratio (10-20) Glucose (70-99(Fasting)) mg/dl Calcium (8.5-10.1) mg/dl Iron 27 L (35-175) mcg/dl Transferrin % Sat 11 L (20-50) % AST (13-39) U/L Crossmatch Diagnostic Findings Chest X-Ray 12/16/21 11:47 XR chest 1V portable CLINICAL HISTORY: Atypical chest pain TECHNIQUE: Single frontal radiograph of the chest was obtained. Comparison: Comparison is made to chest one view 06/04/2021 FINDINGS: No lines and tubes are seen. Calcified aortic knob is seen. Prominence and cephalization of the vasculature is seen. Right greater than left lower lung predominant airspace opacities are seen. No evidence of pleural effusion or pneumothorax. IMPRESSION: Bilateral lower lung predominant airspace opacities which may represent atelectasis, pneumonia, and/or aspiration. Mild pulmonary edema. ECG Additional Comments: Sinus rhythm with 1st degree A-V block Otherwise normal ECG When compared with ECG of 04-JUN-2021 17:36, QT has shortened Code Status & VTE Plan Code Status DNR/DNI. VTE Prophylaxis Plan VTE Prophylaxis will be ordered: Yes Supervising Physician Co-Signing Physician Notes Patient was seen and examined independently; admitted for acute blood loss anemia I discussed the case with Saniya Evans PAC I reviewed pertinent past medical social family history and also the plan of care and agree with the plan of care. pt states he has been having bright red blood per rectum that he feels is from his radiation proctitis, he states he has his typical chest pain that he gets when he is anemia, it is not different from before when he did have an evaluation by Cardiology/Dr Valadez who felt medical management was the best course to take. He does make some urine daily and ER CXR did show some increased interstitial markings( he does have Chronic lung nodules followed by Pulmonary) and was given 80 mg IV lasix in the ER without urine production. He was ordered 2 units PRBC in the ER and we were able to get iron studies pre transfusion to see if iron deficient. PE shows some rales at the bases, mild JVD, AV fistulae with thril in right biceps area, compression stockings on legs Will re evaluate HGb in am along with troponin, if stable consider early discharge, if falling may need additional blood, given his knowledge of his previous bleed associated with an gastric ulcer, he describes no melena, doubt if will need EGD unless symptoms start, if blood loss is continuous, maybe sigmoidoscopy or colo can be considered. Any exceptions will be noted below PG Care Time/CCT Total # of Minutes Spent Total Time Spent with Patient: Total time spent is greater than 50% in coordination of care (as documented) at patient's floor/unit and/or counseling patient: Coding Level of Care Code 81262 Initial Inpt Care Lvl 3 Diagnoses Anemia D64.9 Chest pain R07.9 Hypertension I10 Paroxysmal atrial tachycardia I47.1 Acquired phimosis of penis N47.1 End stage renal disease N18.6 T2DM (type 2 diabetes mellitus) E11.9 Transient ischemic attack (TIA) G45.9 GAVE (gastric antral vascular ectasia) K31.819 Acute respiratory failure J96.00
[2021-12-16 18:13] LABS: Ferritin 265.9 ng/ml (8-388)
[2021-12-16] MEDS ORDERED: hydrALAZINE HCL 20 MG/ML VIAL ONE (19:14)
[2021-12-16] MEDS ORDERED: NITROGLYCERIN 2% OINTMENT 30GM TUBE EXT STA (19:27)
[2021-12-16] MEDS ORDERED: NITROGLYCERIN 2% OINTMENT 30GM TUBE ONE (19:27)
[2021-12-16] MEDS ORDERED: FUROSEMIDE 40 MG/4 ML VIAL IV STA (19:28)
[2021-12-16] MEDS ORDERED: LORazepam 2 MG/1 ML VIAL ONE (19:48)
[2021-12-16] MEDS ORDERED: CEFEPIME 1,000 MG in SYRINGE 0 ML IV STA (19:50)
--- NOTE | 2021-12-16 19:51 | XRay Report ---
XR chest 1V portable CLINICAL HISTORY: acute worsening SOB TECHNIQUE: Single frontal radiograph of the chest was obtained. Comparison: Comparison is made to chest one view 12/16/2021 at 1128 hours FINDINGS: No lines and tubes are seen. Calcified aortic knob is seen. There is a right greater than left lower lung opacity, increased from prior exam. Prominence and cephalization of the vasculature is again see n. No evidence of pleural effusion or pneumothorax. IMPRESSION: Worsening bibasilar airspace opacities. Mild pulmonary edema is again seen. ACT 112: Negative or not required by law. Electronically signed by: Stan Stern M.D. 12/16/2021 7:49 PM
[2021-12-16] MEDS: FUROSEMIDE 100 MG in DEXTROSE 5% 90 ML IV SCH ×2 (19:53→21:53)
[2021-12-16] MEDS: LORazepam 2 MG/1 ML VIAL IV PRN (19:53)
[2021-12-16] MEDS ORDERED: GLUCOSE 40% GEL 15 GM TUBE PO PRN (21:31)
[2021-12-16] MEDS ORDERED: LORazepam 0.5 MG TAB PO PRN (21:31)
[2021-12-16] MEDS ORDERED: DEXTROSE 50% 50 ML SYRINGE IV PRN (21:31)
[2021-12-16] MEDS ORDERED: ACETAMINOPHEN 325 MG TAB PO PRN (21:31)
[2021-12-16] MEDS ORDERED: ONDANSETRON INJ 2 MG/ML 2 ML VIAL IV PRN (21:31)
[2021-12-16] MEDS ORDERED: CARBOHYDRATES FOR HYPOGLYCEMIA PO PRN (21:31)
[2021-12-16] MEDS ORDERED: NITROGLYCERIN SL 0.4 MG/TAB TAB SL PRN (21:31)
[2021-12-16] MEDS ORDERED: GLUCAGON FOR INJ 1 MG VIAL SQ PRN (21:31)
[2021-12-16] MEDS ORDERED: POLYETHYLENE (MIRALAX) 17 GM PACK PO PRN (21:31)
[2021-12-16] MEDS ORDERED: GLUCOSE 10 TABS/TUBE PO PRN (21:31)
[2021-12-16] MEDS ORDERED: DOCUSATE SODIUM SYRUP 100 MG/10 ML UDC PO PRN (21:37)
[2021-12-16] MEDS: INSULIN GLARGINE SOLOSTAR 100 UNITS/ML 3 ML PEN SC SCH (22:11)
[2021-12-16] MEDS: INSULIN ASPART PER UNIT SC SCH (22:12)
[2021-12-16] MEDS: CALCIUM ACETATE 667 MG CAP/TAB PO SCH (22:13)
[2021-12-16] MEDS: METOPROLOL TARTRATE 25 MG TAB PO SCH (22:13)
[2021-12-16] MEDS: PRAVASTATIN SOD 40 MG TAB PO SCH (22:13)
[2021-12-16 23:30] LABS: Basophils # (auto) 0.01 K/uL (0-0.2); Basophils % (auto) 0.1 %; Eosinophils # (auto) 0.03 K/uL (0-0.5); Eosinophils % (auto) 0.3 %; Hematocrit (blood only) 28.8 % (42-52); Hemoglobin 8.9 g/dL (14.0-18.0); Immature Granulocytes # (auto) 0.06 K/uL (0.00-0.02); Immature Granulocytes % (auto) 0.7 %; Lymphocytes # (auto) 0.69 K/uL (1.2-3.4); Lymphocytes % (auto) 7.7 %; Mean Corpuscular Hemoglobin 29.2 pg (25-34); Mean Corpuscular Hgb Conc 30.9 g/dL (32-36); Mean Corpuscular Volume 94.4 fL (80-100); Mean Platelet Volume 9.4 fL (7.4-10.4); Monocytes # (auto) 0.49 K/uL (0.11-0.59); Monocytes % (auto) 5.5 %; Neutrophils # (auto) 7.64 K/uL (1.4-6.5); Neutrophils % (auto) 85.7 %; Platelet Count 126 K/uL (130-400); RDW Coefficient of Variation 16.8 % (11.5-14.5); Red Blood Count 3.05 M/uL (4.7-6.1); White Blood Count 8.92 K/uL (4.8-10.8)
[2021-12-17 06:37] LABS: Eosinophils # (auto) 0.11 K/uL (0-0.5); Eosinophils % (auto) 1.8 %; Hematocrit (blood only) 28.1 % (42-52); Hemoglobin 8.6 g/dL (14.0-18.0); Immature Granulocytes # (auto) 0.04 K/uL (0.00-0.02); Immature Granulocytes % (auto) 0.7 %; Lymphocytes # (auto) 0.74 K/uL (1.2-3.4); Lymphocytes % (auto) 12.4 %; Mean Corpuscular Hemoglobin 28.9 pg (25-34); Mean Corpuscular Hgb Conc 30.6 g/dL (32-36); Mean Corpuscular Volume 94.3 fL (80-100); Mean Platelet Volume 9.3 fL (7.4-10.4); Monocytes # (auto) 0.48 K/uL (0.11-0.59); Monocytes % (auto) 8.1 %; Neutrophils # (auto) 4.58 K/uL (1.4-6.5); Platelet Count 123 K/uL (130-400); RDW Coefficient of Variation 17.1 % (11.5-14.5); RDW Standard Deviation 57.9 fL (36.4-46.3); Red Blood Count 2.98 M/uL (4.7-6.1); White Blood Count 5.95 K/uL (4.8-10.8)
--- NOTE | 2021-12-17 06:37 | Electrocardiogram Report ---
Test Reason : Blood Pressure : / mmHG Vent. Rate : 074 BPM Atrial Rate : 074 BPM P-R Int : 300 ms QRS Dur : 078 ms QT Int : 380 ms P-R-T Axes : 069 056 058 degrees QTc Int : 421 ms Sinus rhythm with 1st degree A-V block Otherwise normal ECG When compared with ECG of 04-JUN-2021 17:36, QT has shortened Confirmed by Phani Rodriguez ([id number]) on 12/17/2021 6:36:42 AM Referred By: REFERRED SELF Confirmed By:Phani Rodriguez
[2021-12-17] MEDS: FUROSEMIDE 100 MG in DEXTROSE 5% 90 ML IV SCH (07:36)
[2021-12-17 08:04] LABS: BUN Creatinine Ratio 7.5 (10-20); Calcium 7.5 mg/dl (8.5-10.1); Creatinine Clr Calc Pharmacy 7.2 ml/min; Est GFR (Non-African American) 5.2 ml/min; Magnesium 2.3 mg/dl (1.7-2.4); Potassium 5.3 mmol/L (3.5-5.1); Troponin I 0.11 ng/ml (0-0.04)
--- NOTE | 2021-12-17 08:43 | XRay Report ---
XR chest 1V portable CLINICAL HISTORY: pulmonary edema. COMPARISON STUDY: 12/16/2021 TECHNIQUE: 1 view of the chest FINDINGS: Single frontal view of the chest demonstrates the cardiomediastinal silhouette to be within normal li mits. Compared to previous examination, bibasilar atelectasis is again seen which is improved on the right. There is evidence for central vascular congestion with no diffuse interstitial edema. There is blunting of left costophrenic angle and small left pleural effusion is suggested. No confluent alveo lar opacities are seen. There is no acute osseous pathology. IMPRESSION: 1. Compared to the previous study, there is again evidence for central vascular congestion with no di ffuse interstitial edema. 2. Suspicion of small left pleural effusion. 3. Decreased bibasilar atelectasis, especially on the right. ACT 112: Negative or not required by law. Electronically signed by: Abner Gomez M.D. 12/17/2021 8:42 AM
[2021-12-17] MEDS: INSULIN ASPART PER UNIT SC SCH ×4 (09:05→20:31)
[2021-12-17] MEDS ORDERED: metOLazone 5 MG TABLET PO ONE (09:29)
[2021-12-17] MEDS ORDERED: FUROSEMIDE 10 MG/ML 10 ML VIAL IV ONE (09:30)
[2021-12-17] MEDS: CALCIUM ACETATE 667 MG CAP/TAB PO SCH ×3 (10:14→16:26)
[2021-12-17] MEDS: dilTIAZem HCL 120 MG CAPCR PO SCH (10:14)
[2021-12-17] MEDS: INSULIN GLARGINE SOLOSTAR 100 UNITS/ML 3 ML PEN SC SCH ×2 (10:14→20:34)
[2021-12-17] MEDS: METOPROLOL TARTRATE 25 MG TAB PO SCH ×2 (10:14→20:36)
[2021-12-17] MEDS: FOLIC ACID 1 MG TAB PO SCH (10:14)
[2021-12-17] MEDS: NEPHROCAPS PO SCH (10:15)
[2021-12-17] MEDS: PANTOprazole 40 MG in SYRINGE 0 ML IV SCH ×2 (10:15→20:34)
[2021-12-17] MEDS ORDERED: PATIROMER CALCIUM SORBITEX 8.4 GM PACK PO ONE (11:00)
--- NOTE | 2021-12-17 12:00 | Nephrology Consultation ---
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 Hgb improved to 8.9. Patient reports ongoing hematochezia (2) Pulmonary edema: * Stop Lasix gtt * Will provide Metolazone 5 mg po x1 followed by Furosemide 100 mg IV x1 this morning * Continue O2 via NC (intolerant of BiPAP) (3) ESRD needing dialysis: * Dialysis services are not available this weekend * Orders have been placed in EMR for heparin free HD 1st shift Saturday am and VM left on dialysis answering machine requesting 1st shift priority tomorrow (4) Hyperkalemia: * Diet changed to low K, HD * Will provide one dose Patiromer this am (5) Hypertension: History of Present Illness Reason for Consultation: ESKD on HD Attending Physician: Lázaro Abdalla MD History of Present Illness Mr. Madden is an 86 year old white male who was interviewed at the request of Dr. Muro to provide inpatient HD. Medical records in the EMR were reviewed today and are summarized as follows: Mr. 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 Acosta 4hrs 2K 2.5Ca F-180NR EDW 91.5kg). His medical history is significant for AODM, HTN, hypercholesterolemia, ASCVD, prostate CA s/p prostatectomy and radiation therapy, radiation colitis w/ intermittent LGI bleeding and lung nodules that are being monitored by [facility]. Mr. Madden presented to dialysis yesterday and complained of dyspnea. Dialysis was held and Mr. Madden was transported to [facility] ED for blood transfusion and medical evaluation. He received 2 units PRBC and required BiPAP therapy. Unfortunately dialysis services were not available last evening or today. IV Furosemide gtt was started and UO was 100 cc overnight. Mr. Madden remains mildly dyspneic this morning. He requested to be taken off BiPAP as it was uncomfortable. He currently denies fever, angina or uremic symptoms. His breakfast this am included orange juice and a banana. Allergies Allergy/AdvReac Type Severity Reaction Status Date / Time clarithromycin AdvReac Intermediate confusion Verified 12/06/21 18:55 fish oil AdvReac Intermediate hx of Verified 12/06/21 18:55 hemorrhage in past Sulfa (Sulfonamide AdvReac Intermediate severe Verified 12/06/21 18:55 Antibiotics) agitation/delirium Home Medications Medication Instructions Recorded Confirmed Type vit B complx, C-iron 8 mg-folic 1 tab PO QAM tab 03/05/19 12/16/21 History acid 800 mcg-D3 1,000 unit-zinc tablet (ProRenal) insulin aspar prot-insulin aspart See Rx Instructions SUBCUT BID 02/09/21 12/16/21 Rx 100 unit/mL (70-30) subcutaneous #135 ml pen (Novolog Mix 70-30FlexPen U-100) pravastatin 40 mg tablet 40 mg PO QPM #90 tab 03/06/21 12/16/21 Rx calcium acetate(phosphat bind) 667 2,001 mg PO TIDM cap 05/03/21 12/16/21 History mg capsule docusate sodium 50 mg capsule 50 mg PO DAILY PRN cap 05/03/21 12/16/21 History (Colace Clear) folic acid 1 mg tablet 1 mg PO QAM #90 tab 05/22/21 12/16/21 Rx metoprolol tartrate 25 mg tablet 37.5 mg PO BID #90 tab 09/15/21 12/16/21 Rx lorazepam 0.5 mg tablet 0.5 mg PO Q12H PRN 12/06/21 12/16/21 History diltiazem HCl 120 mg 120 mg PO QAM #90 cap 12/11/21 12/16/21 Rx capsule,extended release 24 hr Patient History Medical History Acute dyspnea Anemia Arteriovenous fistula thrombosis AV fistula AV fistula Breathlessness 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 S/P EGD WITH CAUTERIZATION 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 COVID-19 Diabetic neuropathy Dialysis AV fistula malfunction Dyslipidemia Emphysema lung suggested per CXR End-stage renal disease on hemodialysis DIALYSIS SATURDAY/SATURDAY/SATURDAY AT [facility] VIA PERMACATH GAVE (gastric antral vascular ectasia) Gout Hearing deficit LEFT History of blood transfusion 2/2 GIB felt r/t radiation therapy s/p total of 6 units PRBC's since 10/2018 Hypertension Non-occlusive coronary artery disease Nontoxic multinodular goiter Osteoarthritis Phimosis of penis Prostate cancer S/P SURGERY, XRT Prostate cancer Pulmonary nodules UNDER SURVEILLANCE Shortness of breath T2DM (type 2 diabetes mellitus) Thrombocytopenia Transient ischemic attack (TIA) 2014--no deficits, no neurologist Surgical History Amputation of left little finger H/O prostatectomy History of arthroscopy LEFT KNEE History of bowel resection BOWEL LACERATION DURING ATTEMPTING POLYPECTOMY History of cardiac cath X3 = NO STENTS History of cataract surgery RIGHT/LEFT History of colonoscopy History of esophagogastroduodenoscopy (EGD) + CAUTERIZATION (/ GIB) History of surgery fistulogram with Dr. Hanna through Right AV fistula 08/17/19 History of tooth extraction S/P arteriovenous (AV) fistula creation LEFT Right side recently ballooned and stented in [facility] S/P arteriovenous (AV) fistula creation right 05/[address] Hanna S/P dialysis catheter insertion Permcath + attempted thrombectomy: 04/2019: MAC sedation at [facility] Family History Father Family history of diabetes mellitus Hypertension Brother Prostate cancer Mother Heart disease Hypertension Denies family history of Ovarian cancer Breast cancer Lung cancer Colorectal cancer Social History Smoking Status: Never smoker Second Hand Exposure: Yes (parents smoked/ smoked); Hx Alcohol Use: No Hx Substance Use: No Preferred Language: Czech Communication Ability: Effective Visual Impairment: No Limitations Hearing Ability: Normal Sports Psychologist Required: No Beliefs That Will Affect Care: None marital status: / Current Living Situation: Family Current Living Situation Comment: Lives with Grandson current occupational status: retired How many Children do You have: 1 Feels Safe at Home: Yes Childhood Exposure to Second-Hand Smoke: Yes Diet Comment: regular caffeine: Yes (coffee, once in a while) during the past year weight has: remained stable Dental Care, Regularly: Yes Physical Activity Frequency: Does not Exercise Seatbelt Use: always Sunscreen Use: No Assistive Devices: Walker Review of Systems Constitutional: + weakness; no fever Eyes: no problem reported Ear, Nose, Mouth, Throat: no problem reported Respiratory: + dyspnea Cardiovascular: no chest pain and no edema Gastrointestinal: no abdominal pain Musculoskeletal: no back pain Integumentary: no rash Neurologic: no confusion Physical Exam Constitutional: not in distress Eyes: PERRL, conjunctivae normal, anicteric sclerae ENMT: external ear and nose normal, oropharynx normal Respiratory: + tachypneic; no respiratory distress Cardiovascular: Rate/Rhythm: regular rate and regular rhythm Extremities: + AV fistula (+ bruit); no edema (pretibial hemosiderin staining from previous lymphedema) Gastrointestinal (Abdomen): normal bowel sounds, soft, nontender, no hepatosplenomegaly Skin: no rashes, warm and dry Neurologic: awake; not confused Results & Data ([facility]) Vital Signs (Past 12 Hours) Vital Signs Temp Pulse Resp BP Pulse Ox 12/17/21 08:07 36.7 C 89 19 195/83 H 96 12/17/21 04:31 36.4 C L 76 19 158/75 H 99 Laboratory Results Laboratory Tests 12/17/21 12/17/21 06:04 06:04 WBC 5.95 Hgb 8.6 L Hct 28.1 L Plt Count 123 L Sodium 133 L Potassium 5.3 H Chloride 93 L Carbon Dioxide 30 BUN 62 H Creatinine 8.31 H* D Glucose 111 H Calcium 7.5 L Magnesium 2.3 Troponin I 0.11 H* PG Care Time/CCT Total # of Minutes Spent Total Time Spent with Patient: Total time spent is greater than 50% in coordination of care (as documented) at patient's floor/unit and/or counseling patient: Coding Level of Care Code 64602 Inpt Consult Level 5 Diagnoses Pulmonary edema J81.1 ESRD needing dialysis N18.6; Z99.2 Anemia D64.9 Hyperkalemia E87.5 Hypertension I10
[2021-12-17] MEDS: LORazepam 2 MG/1 ML VIAL IV PRN (12:43)
[2021-12-17] MEDS ORDERED: CHLOROTHIAZIDE SODIUM 500 MG in DEXTROSE 5% 50 ML IV ONE (14:15)
[2021-12-17] MEDS: NITROGLYCERIN 2% OINTMENT 30GM TUBE EXT SCH ×2 (14:42→20:37)
--- NOTE | 2021-12-17 17:35 | Hospitalist Progress Note ---
Date of Service December 17, 2021 Assessment & Plan (1) Acute respiratory failure: Plan: Patient had another bout of tachypnea and increased work of breathing around middle of the day did not seemingly associated with anything such as post eatings with aspiration. Once again this was improved with Ativan and BiPAP therapy. 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 (3) GAVE (gastric antral vascular ectasia): Plan: -Stable, no signs/symptoms of an UGI bleed today. See above. (4) Chest pain: Plan: -Since last evening, also associated with exertional dyspnea, worse with exertion and relieved with rest, patient states this chest pain is typical for him when he has low Hgb. With a neg troponin and EKG without changes suggestive of infarction. Etiology is most likely secondary to anemia. Some interstitial markings seen on CXR, minimal wheezing on b/l lung bases, Troponin from 0.03->0.11 curious if these episodes of tachypnea are actually angina although he has no chest pain associated with them we will continue to trend troponin markers by checking another troponin in the p.m. of 36 and in a.m. of 37. This may be related to hypertension and poor control creating demand ischemia (5) Hypertension: Plan: -Hypertensive in ED with a BP at one point 224/92. He was given clonidine by ED provider with an order for hydralazine if needed. -Continue metoprolol. (6) Paroxysmal atrial tachycardia: Plan: -On diltiazem and metoprolol, will continue these. (7) End stage renal disease: Plan: -Dialysis T--Sat, did not have it done today d/t anemia. Patient states he was set to transition to -- schedule this week. -Av fistula on RUE with thrill. -No electrolyte abnormalities today. Pt still produces urine. -Follows with [facility]. (8) T2DM (type 2 diabetes mellitus): Plan: -Convert home dose insulin (70/30, 72 units in Am, 74 units in PM) --> 40 Lantus BID with sliding scale coverage. -Accucheks achs, heart healthy/CC diet. -Hgba1c will be checked this hospital stay (9) Transient ischemic attack (TIA): Plan: -In 2014, no residual symptoms, does not follow with neurology. (10) Acquired phimosis of penis: Plan: -Seen by urology on 12/07, plan for dorsal slit procedure to be done in OR at a later time. Plan: -Admit med-surg with tele. -SCDs for ppx. -DNR/DNI. Admission and Anticipated Discharge Date Admission Date: December 16, 2021 Subjective Visit Mr. Elkins for multiple times throughout the day in the morning he was comfortable on nasal cannula towards the midday he developed some shortness of breath he was not significantly hypoxic but did have air hunger and increased work of breathing he was subsequently given lorazepam and placed on BiPAP. We did attempt additional diuresis with IV Lasix at 100 preceded by metolazone 5 that did not seem to produce any urine so we actually gave him Diuril 500 IV. We are subsequently evaluating his urine output hoping to get him to dialysis on Saturday the Review of Systems Review of Systems: Mild distress and fatigue no headache, no visual changes no speech or swallowing issues no chest pain, pressure or palpitations Shortness of breath tachypnea and increased work of breathing no abdominal pain, nausea or vomiting, diarrhea or constipation Patient has urinary outflow issues and he is almost anuric at this point in time no focal joint pain or swelling patient does have compression stockings on from home no back pain, CVA tenderness or radicular pain no bruising, bleeding or rashes no focal signs of weakness or numbness or altered sensation Patiently seemingly gets anxiety which is helped with lorazepam hopeful to get to his dialysis session Physical Exam Physical Exam: The patient appeared mild to moderate respiratory distress Vital signs as documented. Head exam is normocephalic atraumatic Neck is without JVD, thyromegaly, or carotid bruits. Lungs are coarse bilaterally in all lung edouard, increased work of breathing, tachypnea Cardiac exam, Rhythm is regular.. No murmurs, rubs or gallops. Abdominal exam reveals normal bowel sounds, soft non tender, no masses Extremities are nonedematous and both pedal pulses are present Neurologic exam is alert and oriented, no focal loss of strength or sensation Skin is without bruises or rashes Psychologically is without concerns for anxiety or depression.. Results & Data Results & Data ([facility]) Vital Signs (Past 12 Hours) Vital Signs Temp Pulse Pulse Resp BP Pulse Ox 12/17/21 17:09 97.5 F L 74 19 175/78 H 95 12/17/21 14:07 68 21 98 12/17/21 12:01 97.9 F 85 19 186/81 H 96 12/17/21 08:07 98.1 F 89 19 195/83 H 96 PG Care Time/CCT Total # of Minutes Spent Total Time Spent with Patient: Total time spent is greater than 50% in coordination of care (as documented) at patient's floor/unit and/or counseling patient: Coding Level of Care Code 79715 Subseq Hosp Care Lvl 3 Diagnoses Acute respiratory failure J96.00 Anemia D64.9 GAVE (gastric antral vascular ectasia) K31.819 Chest pain R07.9 Hypertension I10 Paroxysmal atrial tachycardia I47.1 End stage renal disease N18.6 T2DM (type 2 diabetes mellitus) E11.9 Transient ischemic attack (TIA) G45.9 Acquired phimosis of penis N47.1
[2021-12-17] MEDS ORDERED: TORSEMIDE 100 MG TAB PO ONE (17:41)
[2021-12-17] MEDS: PRAVASTATIN SOD 40 MG TAB PO SCH (20:35)
[2021-12-17] MEDS ORDERED: CEFEPIME 1,000 MG in SYRINGE 0 ML IV SCH (21:00)
[2021-12-18] MEDS: NITROGLYCERIN 2% OINTMENT 30GM TUBE EXT SCH ×2 (02:33→08:10)
--- NOTE | 2021-12-18 06:40 | Electrocardiogram Report ---
Test Reason : Blood Pressure : / mmHG Vent. Rate : 102 BPM Atrial Rate : 110 BPM P-R Int : 000 ms QRS Dur : 088 ms QT Int : 342 ms P-R-T Axes : 000 064 054 degrees QTc Int : 445 ms Poor data quality, interpretation may be adversely affected Possible Atrial fibrillation Otherwise normal ECG When compared with ECG of 16-DEC-2021 10:06, P wave are not identified on current study Confirmed by Phani Rodriguez ([id number]) on 12/18/2021 6:39:33 AM Referred By: REFERRED SELF Confirmed By:Phani Rodriguez
[2021-12-18 07:25] LABS: Estimated Average Glucose 123 mg/dl; Hemoglobin A1C 5.9 % (4.5-5.6)
[2021-12-18] MEDS ORDERED: SODIUM CHLORIDE 0.9% 1000ML 1,000 ML IV PRN (07:53)
[2021-12-18] MEDS: INSULIN ASPART PER UNIT SC SCH ×4 (07:57→20:40)
[2021-12-18] MEDS: INSULIN GLARGINE SOLOSTAR 100 UNITS/ML 3 ML PEN SC SCH (08:04)
[2021-12-18] MEDS: FOLIC ACID 1 MG TAB PO SCH (08:04)
[2021-12-18] MEDS: PANTOprazole 40 MG in SYRINGE 0 ML IV SCH ×2 (08:04→20:31)
[2021-12-18] MEDS: dilTIAZem HCL 120 MG CAPCR PO SCH ×2 (08:04→13:48)
[2021-12-18] MEDS: CALCIUM ACETATE 667 MG CAP/TAB PO SCH ×3 (08:04→17:07)
[2021-12-18] MEDS: NEPHROCAPS PO SCH (08:04)
[2021-12-18] MEDS: METOPROLOL TARTRATE 25 MG TAB PO SCH ×3 (08:04→20:32)
--- NOTE | 2021-12-18 10:06 | Nephrology Progress Note ---
Date of Service December 18, 2021 Assessment & Plan (1) ESRD needing dialysis: Plan: * HD to be completed this morning. 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 Hgb improved to 8.9. Patient reports ongoing hematochezia * Will order H&H for am (4) Hypertension: Plan: * If BP improves w/ UF, will stop NTP Admission and Anticipated Discharge Date Admission Date: December 16, 2021 Subjective Mr. Madden was evaluated in his hospital room this morning. He did not tolerate NIPPV and was mildly dyspneic while on O2 at 2L/min NC flat in bed. He did diurese 800 cc in response to high dose IV diuretic therapy yesterday Review of Systems Constitutional: + weakness; no fever Eyes: no problem reported Ear, Nose, Mouth, Throat: no problem reported Respiratory: + dyspnea Cardiovascular: no chest pain and no edema Gastrointestinal: no abdominal pain Musculoskeletal: no back pain Integumentary: no rash Neurologic: no confusion Physical Exam Constitutional: not in distress Eyes: PERRL, conjunctivae normal, anicteric sclerae ENMT: external ear and nose normal, oropharynx normal Respiratory: + tachypneic; no respiratory distress Cardiovascular: Rate/Rhythm: regular rate and regular rhythm Extremities: + AV fistula (+ bruit); no edema (pretibial hemosiderin staining from previous lymphedema) Gastrointestinal (Abdomen): normal bowel sounds, soft, nontender, no hepatosplenomegaly Skin: no rashes, warm and dry Neurologic: awake; not confused Results & Data ([facility]) Vital Signs (Past 12 Hours) Vital Signs Temp Pulse Pulse Pulse Resp BP Pulse Ox 12/18/21 07:56 36.4 C L 62 18 159/57 H 100 12/18/21 03:00 36.6 C 55 L 18 162/67 H 98 12/18/21 00:20 65 PG Care Time/CCT Total # of Minutes Spent Total Time Spent with Patient: Total time spent is greater than 50% in coordination of care (as documented) at patient's floor/unit and/or counseling patient: Coding Level of Care Code 96420 Subseq Hosp Care Lvl 3 Diagnoses Anemia D64.9 Pulmonary edema J81.1 ESRD needing dialysis N18.6; Z99.2 Hypertension I10
[2021-12-18 10:45] LABS: Hepatitis B Surface Ab Quant 59.05 mIU/mL (>or=10mIU/mL Immune); Hepatitis B Surface Antibody Immune
[2021-12-18] MEDS ORDERED: PHARMACY GLYCEMIC MGMT CONSULT PRN (14:00)
--- NOTE | 2021-12-18 14:05 | Hospitalist Progress Note ---
Date of Service December 18, 2021 Assessment & Plan (1) Acute respiratory failure: Plan: Doing better; likely combination of ESRD related fluid overload and anemia with possible combination of anginal equivalent Follow at present (2) Anemia: Plan: CBC in the a.m.(not urgently needed at present) (3) GAVE (gastric antral vascular ectasia): Plan: -Stable, no signs/symptoms of an UGI bleed today. See above. (4) Chest pain: Plan: -Pain-free; troponin trend stable; difficult to interpret with ESRD; echo and observe (5) Hypertension: Plan: -Doing better; observe (6) Paroxysmal atrial tachycardia: Plan: -On diltiazem and metoprolol, will continue these. (7) End stage renal disease: Plan: -Nephrology following, ESRD management per them (8) T2DM (type 2 diabetes mellitus): Plan: Trend of low blood sugar; cut down Lantus further; noted home regimen Pharmacy consult (9) Transient ischemic attack (TIA): Plan: -In 2014, no residual symptoms, does not follow with neurology. (10) Acquired phimosis of penis: Plan: -Seen by urology on 12/07, plan for dorsal slit procedure to be done in OR at a later time. Plan: -Admit med-surg with tele. -SCDs for ppx. -DNR/DNI. Admission and Anticipated Discharge Date Admission Date: December 16, 2021 Subjective Follow-up of presentation with shortness of breath, chest painstatus post dialysis, 3 L removed; doing much better; No current angina Physical Exam Physical Exam: Constitutional and general: No acute distress, looks biologic age Head and face: No puffiness, atraumatic Eyes: No scleral icterus, extraocular movements normal Neck: Supple, no JVD Musculoskeletal: No acute joint swelling, no bony abnormalities Skin/dermatologic/integument: No rash, no purpura Hematologic and lymphatic: pallor +, no petechia Gastrointestinal/abdomen: Nondistended, soft, nonacute Neurologic: Cranial nerves intact, nonfocal Psychiatry: Awake, alert, pleasant, communicative Cardiovascular: Heart rhythm regular, no rub, no murmur, no gallop Respiratory: Chest movements equal, no use of accessory muscles, no adventitious sounds Extremities: No edema, no cyanosis Results & Data Results & Data ([place]) Vital Signs (Past 12 Hours) Vital Signs Temp Pulse Pulse Pulse Pulse Resp BP 12/18/21 12:20 61 147/54 H 12/18/21 12:00 64 143/67 H 12/18/21 11:40 54 L 123/71 12/18/21 11:20 66 133/61 12/18/21 11:00 67 154/58 H 12/18/21 10:40 65 148/67 H 12/18/21 10:20 62 141/51 H 12/18/21 10:00 62 130/57 L 12/18/21 09:40 66 144/61 H 12/18/21 09:20 71 158/69 H 12/18/21 09:03 73 160/68 H 12/18/21 08:56 36.8 C 73 12/18/21 07:56 36.4 C L 62 18 12/18/21 03:00 36.6 C 55 L 18 BP Pulse Ox 12/18/21 12:20 12/18/21 12:00 12/18/21 11:40 12/18/21 11:20 12/18/21 11:00 12/18/21 10:40 12/18/21 10:20 12/18/21 10:00 12/18/21 09:40 12/18/21 09:20 12/18/21 09:03 12/18/21 08:56 12/18/21 07:56 159/57 H 100 12/18/21 03:00 162/67 H 98 PG Care Time/CCT Total # of Minutes Spent Total Time Spent with Patient: Total time spent is greater than 50% in coordination of care (as documented) at patient's floor/unit and/or counseling patient: Coding Level of Care Code 85979 Subseq Hosp Care Lvl 2 Diagnoses Acute respiratory failure J96.00 Anemia D64.9 GAVE (gastric antral vascular ectasia) K31.819 Chest pain R07.9 Hypertension I10 Paroxysmal atrial tachycardia I47.1 End stage renal disease N18.6 T2DM (type 2 diabetes mellitus) E11.9 Transient ischemic attack (TIA) G45.9 Acquired phimosis of penis N47.1
--- NOTE | 2021-12-18 14:34 | Pharmacy Report ---
Pharmacy Glycemic Short Note 2 - Date of Service December 18, 2021 - Glycemic Short BSG Results (Last 24 hours): 12/17/21 12/17/21 12/17/21 06:04 16:19 20:00 Glucose 111 H POC Glucose 139 H 149 H 12/18/21 12/18/21 12/18/21 07:35 07:36 13:43 Glucose POC Glucose 63 L* 63 L* 68 L* OUTPATIENT ANTIDIABETIC REGIMEN: * 70/30 insulin: 72 units w/ breakfast + 74 units w/ supper * A1c = 5.9% 12/17/21 (however interpret w/ caution due to anemia and ESRD) ASSESSMENT: * Type 2 diabetic admitted for resp failure possibly due to fluid OL in combo with anemia * Fasting hypoglycemia observed this AM, BSGs in 60s with 80 units basal on board. - will withhold additional basal doses today and begin reduced dose tomorrow AM. Novolog order will be adjusted tomorrow AM to allow for carb coverage. Will withhold carb coverage as patient's BSGs running low today and basal dose administered this AM. * Will base insulin doses upon an anticipated total daily requirement of ~70 units/day. Upon prior admissions he has required 70-90 units of insulin per day * Will refrain from using 70/30 insulin while hospitalized due inability to titrate insulin doses, along with greater risk of hypoglycemia when nutr itional status changes while hospitalized PLAN FOR INPATIENT GLYCEMIC CONTROL: * Hold outpatient oral diabetes medications * Basal insulin * Lantus 30 units SQ Q AM * Bolus insulin * NovoLog per scale ACHS or Q6hrs while NPO * Goal Range: Low 110 mg/dL - High 140 mg/dL * Correction Factor: 25 mg/dL/unit * Nutritional / Prandial insulin per carb ratio of 1 unit per 10 grams CHO consumed
--- NOTE | 2021-12-18 18:18 | XCELERA ---
[id number]
[2021-12-18] MEDS: PRAVASTATIN SOD 40 MG TAB PO SCH (20:32)
[2021-12-19 06:00] LABS: Basophils # (auto) 0.01 K/uL (0-0.2); Basophils % (auto) 0.2 %; Eosinophils # (auto) 0.25 K/uL (0-0.5); Eosinophils % (auto) 4.4 %; Hemoglobin 8.2 g/dL (14.0-18.0); Immature Granulocytes # (auto) 0.01 K/uL (0.00-0.02); Immature Granulocytes % (auto) 0.2 %; Lymphocytes # (auto) 0.98 K/uL (1.2-3.4); Lymphocytes % (auto) 17.3 %; Mean Corpuscular Hemoglobin 29.1 pg (25-34); Mean Corpuscular Hgb Conc 30.4 g/dL (32-36); Mean Corpuscular Volume 95.7 fL (80-100); Mean Platelet Volume 9.5 fL (7.4-10.4); Monocytes # (auto) 0.65 K/uL (0.11-0.59); Monocytes % (auto) 11.4 %; Neutrophils # (auto) 3.78 K/uL (1.4-6.5); Neutrophils % (auto) 66.5 %; Platelet Count 120 K/uL (130-400); RDW Coefficient of Variation 16.4 % (11.5-14.5); RDW Standard Deviation 56.7 fL (36.4-46.3); Red Blood Count 2.82 M/uL (4.7-6.1); White Blood Count 5.68 K/uL (4.8-10.8)
[2021-12-19 06:19] LABS: Albumin Globulin Ratio 1.1 (0.9-2); Albumin Level 3.4 gm/dl (3.4-5.0); BUN Creatinine Ratio 6.4 (10-20); Bilirubin,Total 0.4 mg/dl (0.2-1.0); Calcium 8.7 mg/dl (8.5-10.1); Creatinine Clr Calc Pharmacy 8.8 ml/min; Est GFR (African American) 7.9 ml/min; Est GFR (Non-African American) 6.8 ml/min; Globulin 3.1 gm/dl (2.5-4.0); Potassium 4.9 mmol/L (3.5-5.1); Total Protein 6.5 gm/dl (6.0-8.3)
[2021-12-19] MEDS: CALCIUM ACETATE 667 MG CAP/TAB PO SCH ×3 (08:06→17:26)
[2021-12-19] MEDS: NEPHROCAPS PO SCH (08:09)
[2021-12-19] MEDS: FOLIC ACID 1 MG TAB PO SCH (08:09)
[2021-12-19] MEDS: PANTOprazole 40 MG in SYRINGE 0 ML IV SCH ×2 (08:10→21:05)
[2021-12-19] MEDS: dilTIAZem HCL 120 MG CAPCR PO SCH (08:19)
[2021-12-19] MEDS: METOPROLOL TARTRATE 25 MG TAB PO SCH ×2 (08:20→21:03)
[2021-12-19] MEDS: INSULIN ASPART PER UNIT SC SCH ×4 (08:29→21:02)
--- NOTE | 2021-12-19 08:57 | XRay Report ---
XR chest 1V portable CLINICAL HISTORY: CHF TECHNIQUE: Single frontal radiograph of the chest was obtained. Comparison: Comparison is made to chest one view 12/17/2021 FINDINGS: No lines and tubes are seen. Cardiomegaly is noted. Prominence and cephalization of the vasculature i s seen. Bilateral lower lung predominant airspace opacities are seen. There are trace bilateral pleur al effusions. IMPRESSION: Cardiomegaly with mild pulmonary edema. Bilateral airspace opacities may represent atelectasis, pneum onia, aspiration, or less likely alveolar edema. ACT 112: Negative or not required by law. Electronically signed by: Stan Stern M.D. 12/19/2021 8:56 AM
[2021-12-19] MEDS ORDERED: INSULIN GLARGINE SOLOSTAR 100 UNITS/ML 3 ML PEN SC SCH (09:00)
--- NOTE | 2021-12-19 09:07 | Nephrology Progress Note ---
Date of Service December 19, 2021 Assessment & Plan (1) ESRD needing dialysis: Plan: * HD completed yesterday. 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 Hgb improved to 8.9. Patient reports ongoing hematochezia * H&H is gradually trending down during hospitalization (4) Weakness: Plan: * Will ask staffing operations manager to advance patient's activity to up to chair each day * Recommend PT evaluation/ambulation Admission and Anticipated Discharge Date Admission Date: December 16, 2021 Subjective Mr. Madden was evaluated in his hospital room this morning. He was dialyzed yesterday for 3L UF. CXR this am shows improved aeration. He is breathing comfortably flat in bed on O2 at 2L/min NC w/ SaO2 94% Review of Systems Constitutional: + weakness; no fever Eyes: no problem reported Ear, Nose, Mouth, Throat: no problem reported Respiratory: + dyspnea Cardiovascular: no chest pain and no edema Gastrointestinal: no abdominal pain Musculoskeletal: no back pain Integumentary: no rash Neurologic: no confusion Physical Exam Constitutional: not in distress Eyes: PERRL, conjunctivae normal, anicteric sclerae ENMT: external ear and nose normal, oropharynx normal Respiratory: Auscultation: + crackles and + wheezes Cardiovascular: Rate/Rhythm: regular rate and regular rhythm Extremities: + AV fistula (+ bruit); no edema (pretibial hemosiderin staining from previous lymphedema) Gastrointestinal (Abdomen): normal bowel sounds, soft, nontender, no hepatosplenomegaly Skin: no rashes, warm and dry Neurologic: awake; not confused Results & Data ([facility]) Vital Signs (Past 12 Hours) Vital Signs Temp Pulse Pulse Resp BP Pulse Ox 12/19/21 07:23 64 12/19/21 03:00 36.6 C 58 L 16 149/58 H 98 12/18/21 23:00 36.8 C 61 20 158/85 H 96 12/18/21 22:18 61 Laboratory Results Laboratory Tests 12/19/21 12/19/21 05:30 05:30 WBC 5.68 Hgb 8.2 L Hct 27.0 L Plt Count 120 L Sodium 137 Potassium 4.9 Chloride 101 Carbon Dioxide 29 BUN 43 H Creatinine 6.68 H* D Glucose 92 Calcium 8.7 Total Bilirubin 0.4 AST 11 L ALT 7 Alkaline Phosphatase 49 Albumin 3.4 PG Care Time/CCT Total # of Minutes Spent Total Time Spent with Patient: Total time spent is greater than 50% in coordination of care (as documented) at patient's floor/unit and/or counseling patient: Coding Level of Care Code 62828 Subseq Hosp Care Lvl 3 Diagnoses ESRD needing dialysis N18.6; Z99.2 Pulmonary edema J81.1 Anemia D64.9 Weakness R53.1
--- NOTE | 2021-12-19 10:42 | Hospitalist Progress Note ---
Date of Service December 19, 2021 Assessment & Plan (1) Acute respiratory failure: Plan: Doing better; likely combination of ESRD related fluid overload and anemia with possible combination of angina equivalent At present transfuse as necessary, fluid removal via dialysis Stress test for risk assessment (2) Anemia: Plan: Hemoglobin acceptablefollow (3) GAVE (gastric antral vascular ectasia): Plan: -Stable, no signs/symptoms of an UGI bleed today. See above. (4) Chest pain: Plan: -Pain-free; troponin trend stable; difficult to interpret with ESRD; echo echo report notedpreserved LV function; I think stress test for risk assessment appropriateordered (5) Hypertension: Plan: -Acceptable; at present no change but might need further med optimization (6) Paroxysmal atrial tachycardia: Plan: -On diltiazem and metoprolol, will continue these. (7) End stage renal disease: Plan: -Nephrology following, ESRD management per them (8) T2DM (type 2 diabetes mellitus): Plan: Much lower insulin requirement; sugars acceptablefollow (9) Transient ischemic attack (TIA): Plan: -In 2014, no residual symptoms, does not follow with neurology. (10) Acquired phimosis of penis: Plan: -Seen by urology on 12/07, plan for dorsal slit procedure to be done in OR at a later time. Plan: -OT/PT -SCDs for ppx. -DNR/DNI. Admission and Anticipated Discharge Date Admission Date: December 16, 2021 Subjective Follow-up of presentation with shortness of breath, chest painback on oxygen but angina free; no known bleeding that he has seen Physical Exam Physical Exam: Constitutional and general: No acute distress, looks biologic age Head and face: No puffiness, atraumatic Eyes: No scleral icterus, extraocular movements normal Neck: Supple, no JVD Musculoskeletal: No acute joint swelling, no bony abnormalities Skin/dermatologic/integument: No rash, no purpura Hematologic and lymphatic: pallor +, no petechia Gastrointestinal/abdomen: Nondistended, soft, nonacute Neurologic: Cranial nerves intact, nonfocal Psychiatry: Awake, alert, pleasant, communicative Cardiovascular: Heart rhythm regular, no rub, soft systolic murmur, no gallop Respiratory: Chest movements equal, no use of accessory muscles, no adventitious sounds Extremities: No edema, no cyanosis Results & Data Results & Data ([facility]) Vital Signs (Past 12 Hours) Vital Signs Temp Pulse Pulse Resp BP Pulse Ox 12/19/21 09:55 94 12/19/21 09:52 88 L 12/19/21 09:38 92 12/19/21 09:09 36.6 C 61 18 159/65 H 97 12/19/21 07:23 64 12/19/21 03:00 36.6 C 58 L 16 149/58 H 98 12/18/21 23:00 36.8 C 61 20 158/85 H 96 PG Care Time/CCT Total # of Minutes Spent Total Time Spent with Patient: Total time spent is greater than 50% in coordination of care (as documented) at patient's floor/unit and/or counseling patient: Coding Level of Care Code 93977 Subseq Hosp Care Lvl 2 Diagnoses Acute respiratory failure J96.00 Anemia D64.9 GAVE (gastric antral vascular ectasia) K31.819 Chest pain R07.9 Hypertension I10 Paroxysmal atrial tachycardia I47.1 End stage renal disease N18.6 T2DM (type 2 diabetes mellitus) E11.9 Transient ischemic attack (TIA) G45.9 Acquired phimosis of penis N47.1
[2021-12-19] MEDS: PRAVASTATIN SOD 40 MG TAB PO SCH (21:06)
[2021-12-20 07:00] LABS: Basophils # (auto) 0.01 K/uL (0-0.2); Basophils % (auto) 0.2 %; Eosinophils # (auto) 0.23 K/uL (0-0.5); Eosinophils % (auto) 4.3 %; Hematocrit (blood only) 25.7 % (42-52); Hemoglobin 8.1 g/dL (14.0-18.0); Immature Granulocytes # (auto) 0.02 K/uL (0.00-0.02); Immature Granulocytes % (auto) 0.4 %; Lymphocytes # (auto) 1.33 K/uL (1.2-3.4); Lymphocytes % (auto) 25.1 %; Mean Corpuscular Hemoglobin 29.6 pg (25-34); Mean Corpuscular Hgb Conc 31.5 g/dL (32-36); Mean Corpuscular Volume 93.8 fL (80-100); Mean Platelet Volume 9.3 fL (7.4-10.4); Monocytes # (auto) 0.48 K/uL (0.11-0.59); Monocytes % (auto) 9.1 %; Neutrophils # (auto) 3.22 K/uL (1.4-6.5); Neutrophils % (auto) 60.9 %; Platelet Count 121 K/uL (130-400); RDW Coefficient of Variation 16.2 % (11.5-14.5); RDW Standard Deviation 54.9 fL (36.4-46.3); Red Blood Count 2.74 M/uL (4.7-6.1); White Blood Count 5.29 K/uL (4.8-10.8)
[2021-12-20] MEDS ORDERED: SODIUM CHLORIDE 0.9% 1000ML 1,000 ML IV PRN (07:00)
[2021-12-20] MEDS ORDERED: EPOETIN ALFA 10,000 UNITS/ML VIAL IV SCH (07:00)
[2021-12-20 07:40] LABS: Albumin Level 3.3 gm/dl (3.4-5.0); BUN Creatinine Ratio 8.3 (10-20); Bilirubin,Total 0.4 mg/dl (0.2-1.0); Creatinine Clr Calc Pharmacy 7.8 ml/min; Est GFR (African American) 6.7 ml/min; Est GFR (Non-African American) 5.8 ml/min; Globulin 3.4 gm/dl (2.5-4.0); Potassium 4.9 mmol/L (3.5-5.1); Total Protein 6.7 gm/dl (6.0-8.3)
[2021-12-20] MEDS ORDERED: REGADENOSON 0.4 MG/5 ML SYR IV ONE (07:59)
--- NOTE | 2021-12-20 08:43 | Nephrology Progress Note ---
Date of Service December 20, 2021 Assessment & Plan (1) ESRD needing dialysis: Plan: * HD scheduled for today. Will attempt 3 L UF * Outpatient HD orders: [facility] w/Dr. Acosta MWF 4hrs 2K 2.5Ca F- 180NR EDW 91.5kg * When discharge is anticipated, please notify [facility] unit to resume outpatient treatments (2) Pulmonary edema: Plan: * Improved following UF on HD. Question accuracy of weights. 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 Hgb improved to 8.9. Patient reports ongoing hematochezia * H&H is gradually trending down during hospitalization (4) Weakness: Plan: * staff psychologist advised to get patient up to chair each day * Recommend PT evaluation/ambulation (5) Elevated troponin: Plan: * Asymptomatic * Await results of 12/20/21 cardiac stress test Admission and Anticipated Discharge Date Admission Date: December 16, 2021 Subjective Mr. Madden was evaluated in his hospital room this morning. He just returned from cardiac stress test. He denied angina or overt bleeding. He remains on O2 at 1L/min NC Review of Systems Constitutional: + weakness; no fever Eyes: no problem reported Ear, Nose, Mouth, Throat: no problem reported Respiratory: no dyspnea Cardiovascular: no chest pain and no edema Gastrointestinal: no abdominal pain Musculoskeletal: no back pain Integumentary: no rash Neurologic: no confusion Physical Exam Constitutional: not in distress Eyes: PERRL, conjunctivae normal, anicteric sclerae ENMT: external ear and nose normal, oropharynx normal Respiratory: no respiratory distress Auscultation: lungs clear to auscultation bilaterally Cardiovascular: Rate/Rhythm: regular rate and regular rhythm Extremities: + AV fistula (+ bruit); no edema (pretibial hemosiderin staining from previous lymphedema) Gastrointestinal (Abdomen): normal bowel sounds, soft, nontender, no hepatosplenomegaly Skin: no rashes, warm and dry Neurologic: awake; not confused Results & Data ([facility]) Vital Signs (Past 12 Hours) Vital Signs Temp Pulse Pulse Resp BP Pulse Ox 12/20/21 07:09 70 12/20/21 02:59 36.7 C 57 L 18 163/62 H 96 12/19/21 23:00 36.6 C 59 L 18 176/68 H 95 12/19/21 22:22 80 Laboratory Results Laboratory Tests 12/20/21 12/20/21 06:37 06:37 WBC 5.29 Hgb 8.1 L Hct 25.7 L Plt Count 121 L Sodium 136 Potassium 4.9 Chloride 100 Carbon Dioxide 27 BUN 63 H D Creatinine 7.63 H* D Glucose 73 PG Care Time/CCT Total # of Minutes Spent Total Time Spent with Patient: Total time spent is greater than 50% in coordination of care (as documented) at patient's floor/unit and/or counseling patient: Coding Level of Care Code 06039 Subseq Hosp Care Lvl 3 Diagnoses ESRD needing dialysis N18.6; Z99.2 Pulmonary edema J81.1 Anemia D64.9 Weakness R53.1 Elevated troponin R77.8
[2021-12-20] MEDS ORDERED: INSULIN GLARGINE SOLOSTAR 100 UNITS/ML 3 ML PEN SC ONE (13:00)
--- NOTE | 2021-12-20 13:04 | Pharmacy Report ---
Pharmacy Glycemic Short Note 2 - Date of Service December 20, 2021 - Glycemic Short BSG Results (Last 24 hours): 12/19/21 12/19/21 12/20/21 16:23 20:08 06:37 Glucose 73 POC Glucose 126 H 125 H 12/20/21 12/20/21 07:35 10:37 Glucose POC Glucose 82 106 H OUTPATIENT ANTIDIABETIC REGIMEN: * 70/30 insulin: 72 units w/ breakfast + 74 units w/ supper * A1c = 5.9% 12/17/21 (however interpret w/ caution due to anemia and ESRD) ASSESSMENT: 12/20 * BSGs well-controlled yesterday, ranging 94-150 mg/dL, fasting BSG of 82 mg/dL this morning * Received 46 units of insulin (30 units of Lantus and 16 units of prandial/correctional bolus) * NPO this morning, now ordered a diet again with lunch * Originally held Lantus this morning in light of NPO, but will restart reduced Lantus with lunch today 12/18 * Type 2 diabetic admitted for resp failure possibly due to fluid OL in combo with anemia * Fasting hypoglycemia observed this AM, BSGs in 60s with 80 units basal on board. - will withhold additional basal doses today and begin reduced dose tomorrow AM. Novolog order will be adjusted tomorrow AM to allow for carb coverage. Will withhold carb coverage as patient's BSGs running low today and basal dose administered this AM. * Will base insulin doses upon an anticipated total daily requirement of ~70 units/day. Upon prior admissions he has required 70-90 units of insulin per day * Will refrain from using 70/30 insulin while hospitalized due inability to titrate insulin doses, along with greater risk of hypoglycemia when nutritional status changes while hospitalized PLAN FOR INPATIENT GLYCEMIC CONTROL: * Basal insulin - decrease * Lantus 20 units SQ x 1 with lunch * Reassess in AM * Bolus insulin - no change * NovoLog per scale ACHS or Q6hrs while NPO * Goal Range: Low 110 mg/dL - High 140 mg/dL * Correction Factor: 25 mg/dL/unit * Nutritional / Prandial insulin per carb ratio of 1 unit per 10 grams CHO consumed
--- NOTE | 2021-12-20 14:53 | Myocardial Perfusion Study ---
Date of Service December 20, 2021 Myocardial Perfusion Study [facility] Myocardial Perfusion Study Report ONE DAY NUCLEAR MEDICINE LEXISCAN TECHNETIUM 99M MYOCARDIAL PERFUSION SCAN Indication: Elevated troponin in CAD patient. Baseline ECG: Normal sinus rhythm with first-degree AV block. Stress ECG: No Lexiscan induced ST changes. Hemodynamics: HR vish from 74 bpm to 82 bpm representing 63% MPHR. BP 170/69 rest, 175/62 during study, 163/63 recovery. Technique: For the stress portion of the study 30.7 mCi of Technetium 99m Cardiolite IV was injected at 9:30 on 12/20/2021. 30 minutes following the injection, imaging of the heart was performed in multiple projections. For the rest portion of the study, 10.5 mCi of Technetium 99m Cardiolite was injected IV at 7:55. One hour following the injection, imaging of the hear was performed in the same projections. Findings: Rotating and raw images were reviewed in detail. Potential sources of attenuation include mild diaphragmatic shadowing and minimal gut uptake impacting the inferior imaging border of the heart. No significant extracardiac pathologic uptake. Short axis, vertical long axis and horizontal long axis images were reviewed in detail. No visual transient ischemic dilation. Small to moderate size reversible perfusion defect involving base to mid inferior wall. No fixed defects. Gated images: LV is non-dilated. EDV 137 ml.ESV 51 ml. Calculated EF=63%. No wall motion abnormalities. SUMMARY: 1. Small to moderate Lexiscan-induced perfusion defect involving inferior wall consistent with a limited area of RCA distribution ischemia. 2. No areas of infarction or wall motion abnormalities. 3. Nondilated left ventricle with normal systolic function (EF=63%). 4. Non-diagnostic stress ECG due to inability to reach target HR; no ischemic changes or dysrhythmias. [facility] [place] code Indication for Procedure (1) Elevated troponin: Procedure Code Procedure 1: Myocardial Perfusion Codes: 59921 Cardiovascular Stress Test, multiple Procedure 2: Myocardial Perfusion Codes: 36498 Cardiovascular Stress Test, supervision only Procedure 3: Myocardial Perfusion Codes: 69235 Cardiovascular Stress Test, interpretation and report
[2021-12-20] MEDS: CALCIUM ACETATE 667 MG CAP/TAB PO SCH ×2 (17:03→17:07)
[2021-12-20] MEDS: dilTIAZem HCL 120 MG CAPCR PO SCH (17:04)
[2021-12-20] MEDS: FOLIC ACID 1 MG TAB PO SCH (17:04)
[2021-12-20] MEDS: METOPROLOL TARTRATE 25 MG TAB PO SCH (17:05)
[2021-12-20] MEDS: NEPHROCAPS PO SCH (17:06)
[2021-12-20] MEDS: PANTOprazole 40 MG in SYRINGE 0 ML IV SCH ×2 (17:15→20:30)
[2021-12-20] MEDS: INSULIN ASPART PER UNIT SC SCH ×4 (17:19→22:36)
--- NOTE | 2021-12-20 18:21 | Hospitalist Progress Note ---
Date of Service December 20, 2021 Assessment & Plan (1) Acute respiratory failure: Plan: Doing better; likely combination of ESRD related fluid overload and anemia with possible combination of angina equivalent At present transfuse as necessary, fluid removal via dialysis Stress test small to moderate area of ischemiawill obtain cardiology input; obtained for risk stratification, given problems with recurrent bleeding antiplatelets obviated therefore drug-eluting stent clearly a problem; they may opt for medical management but will solicit input or whether any option of other types of stents, if they think it is worthwhile; clearly angina precipitated by anemia so a very reasonable alternative would be transfuse as necessary and medical optimization; given preserved LV function likely there is no mortality benefit of intervention and absent disabling angina a conservative noninterventional approach would be reasonable Lipid panel for better risk stratification; increase metoprolol, stop Cardizem (2) Anemia: Plan: Hemoglobin acceptablefollow (3) GAVE (gastric antral vascular ectasia): Plan: -Stable, no signs/symptoms of an UGI bleed today. See above. (4) Chest pain: Plan: -Pain-free; stable elevated troponin (in itself difficult to interpret given ESRD); see #1; can uptitrate metoprolol as tolerated; has had coronary angiography before but last one was several years ago; when I broached the subject (in the remote chance that cardiology feels it is worthwhile) he seemed unsure and encouraged to think about it (5) Hypertension: Plan: As above (6) Paroxysmal atrial tachycardia: Plan: -As above; as noted had some runs earlier but sinus at present (7) End stage renal disease: Plan: -Nephrology following, ESRD management per them (8) T2DM (type 2 diabetes mellitus): Plan: Much lower insulin requirement; sugars acceptablefollow (9) Transient ischemic attack (TIA): Plan: -In 2014, no residual symptoms, does not follow with neurology. (10) Acquired phimosis of penis: Plan: -Seen by urology on 12/07, plan for dorsal slit procedure to be done in OR at a later time. Plan: -OT/PT -SCDs for ppx. -DNR/DNI. Admission and Anticipated Discharge Date Admission Date: December 16, 2021 Subjective Follow-up of presentation of shortness of breath, chest pain; No more chest pain; no known bleeding; some paroxysmal atrial tachycardia noted on telemetry Physical Exam Physical Exam: Constitutional and general: No acute distress, looks biologic age Head and face: No puffiness, atraumatic Eyes: No scleral icterus, extraocular movements normal Neck: Supple, no JVD Musculoskeletal: No acute joint swelling, no bony abnormalities Skin/dermatologic/integument: No rash, no purpura Hematologic and lymphatic: pallor +, no petechia Gastrointestinal/abdomen: Nondistended, soft, nonacute Neurologic: Cranial nerves intact, nonfocal Psychiatry: Awake, alert, pleasant, communicative Cardiovascular: Heart rhythm regular, no rub, soft systolic murmur, no gallop Respiratory: Chest movements equal, no use of accessory muscles, no adventitious sounds Extremities: No edema, no cyanosis Results & Data Results & Data ([facility]) Vital Signs (Past 12 Hours) Vital Signs Temp Pulse Pulse Pulse Resp BP BP 12/20/21 16:55 36.7 C 73 18 156/56 H 12/20/21 16:48 36.6 C 80 147/58 H 12/20/21 16:20 72 118/56 L 12/20/21 16:00 68 120/54 L 12/20/21 15:40 58 L 122/50 L 12/20/21 15:20 82 118/55 L 12/20/21 15:00 66 115/45 L 12/20/21 14:40 76 130/65 12/20/21 14:20 79 141/61 H 12/20/21 14:00 79 155/64 H 12/20/21 13:40 71 133/61 12/20/21 13:20 70 130/55 L 12/20/21 13:00 71 133/55 L 12/20/21 12:40 74 156/65 H 12/20/21 12:28 80 171/69 H 12/20/21 12:21 36.6 C 82 12/20/21 11:42 36.6 C 79 19 172/65 H 12/20/21 07:30 36.7 C 83 20 164/68 H 12/20/21 07:09 70 Pulse Ox 12/20/21 16:55 97 12/20/21 16:48 12/20/21 16:20 12/20/21 16:00 12/20/21 15:40 12/20/21 15:20 12/20/21 15:00 12/20/21 14:40 12/20/21 14:20 12/20/21 14:00 12/20/21 13:40 12/20/21 13:20 12/20/21 13:00 12/20/21 12:40 12/20/21 12:28 12/20/21 12:21 12/20/21 11:42 98 12/20/21 07:30 94 12/20/21 07:09 Laboratory Results Laboratory Results - last 24 hr 12/19/21 12/20/21 12/20/21 20:08 06:37 06:37 WBC 5.29 RBC 2.74 L Hgb 8.1 L Hct 25.7 L MCV 93.8 MCH 29.6 MCHC 31.5 L RDW Std Deviation 54.9 H RDW Coeff of Casandra 16.2 H Plt Count 121 L MPV 9.3 Immature Gran % (Auto) 0.4 Neut % (Auto) 60.9 Lymph % (Auto) 25.1 Morrison % (Auto) 9.1 Eos % (Auto) 4.3 Baso % (Auto) 0.2 Neut # (Auto) 3.22 Lymph # (Auto) 1.33 Morrison # (Auto) 0.48 Eos # (Auto) 0.23 Baso # (Auto) 0.01 Immature Gran # (Auto) 0.02 Sodium 136 Potassium 4.9 Chloride 100 Carbon Dioxide 27 Anion Gap 9 BUN 63 H D Creatinine 7.63 H* D Est Cr Clr Drug Dosing 7.8 Est GFR ( Amer) 6.7 Est GFR (Non-Af Amer) 5.8 BUN/Creatinine Ratio 8.3 L Glucose 73 POC Glucose 125 H Calcium 8.0 L Total Bilirubin 0.4 AST 12 L ALT 8 Alkaline Phosphatase 49 Total Protein 6.7 Albumin 3.3 L Globulin 3.4 Albumin/Globulin Ratio 1.0 12/20/21 12/20/21 12/20/21 07:35 10:37 17:01 WBC RBC Hgb Hct MCV MCH MCHC RDW Std Deviation RDW Coeff of Casandra Plt Count MPV Immature Gran % (Auto) Neut % (Auto) Lymph % (Auto) Morrison % (Auto) Eos % (Auto) Baso % (Auto) Neut # (Auto) Lymph # (Auto) Morrison # (Auto) Eos # (Auto) Baso # (Auto) Immature Gran # (Auto) Sodium Potassium Chloride Carbon Dioxide Anion Gap BUN Creatinine Est Cr Clr Drug Dosing Est GFR ( Amer) Est GFR (Non-Af Amer) BUN/Creatinine Ratio Glucose POC Glucose 82 106 H 129 H Calcium Total Bilirubin AST ALT Alkaline Phosphatase Total Protein Albumin Globulin Albumin/Globulin Ratio PG Care Time/CCT Total # of Minutes Spent Total Time Spent with Patient: Total time spent is greater than 50% in coordination of care (as documented) at patient's floor/unit and/or counseling patient: Coding Level of Care Code 68909 Subseq Hosp Care Lvl 2 Diagnoses Acute respiratory failure J96.00 Anemia D64.9 GAVE (gastric antral vascular ectasia) K31.819 Chest pain R07.9 Hypertension I10 Paroxysmal atrial tachycardia I47.1 End stage renal disease N18.6 T2DM (type 2 diabetes mellitus) E11.9 Transient ischemic attack (TIA) G45.9 Acquired phimosis of penis N47.1
[2021-12-20] MEDS: METOPROLOL TARTRATE 50 MG TAB PO SCH (20:29)
[2021-12-20] MEDS: PRAVASTATIN SOD 40 MG TAB PO SCH (20:31)
[2021-12-21 07:44] LABS: Basophils # (auto) 0.01 K/uL (0-0.2); Basophils % (auto) 0.2 %; Eosinophils # (auto) 0.19 K/uL (0-0.5); Eosinophils % (auto) 3.9 %; Hematocrit (blood only) 25.5 % (42-52); Hemoglobin 8.1 g/dL (14.0-18.0); Immature Granulocytes # (auto) 0.03 K/uL (0.00-0.02); Immature Granulocytes % (auto) 0.6 %; Lymphocytes # (auto) 1.11 K/uL (1.2-3.4); Lymphocytes % (auto) 22.8 %; Mean Corpuscular Hemoglobin 29.5 pg (25-34); Mean Corpuscular Hgb Conc 31.8 g/dL (32-36); Mean Corpuscular Volume 92.7 fL (80-100); Mean Platelet Volume 9.3 fL (7.4-10.4); Monocytes # (auto) 0.64 K/uL (0.11-0.59); Monocytes % (auto) 13.2 %; Neutrophils # (auto) 2.88 K/uL (1.4-6.5); Neutrophils % (auto) 59.3 %; Platelet Count 128 K/uL (130-400); RDW Standard Deviation 54.3 fL (36.4-46.3); Red Blood Count 2.75 M/uL (4.7-6.1); White Blood Count 4.86 K/uL (4.8-10.8)
--- NOTE | 2021-12-21 08:43 | Nephrology Progress Note ---
Date of Service December 21, 2021 Assessment & Plan (1) ESRD needing dialysis: Plan: * Volume status is acceptable this morning. No acute indication for HD today. Will schedule next treatment for am * Outpatient HD orders: [facility] [place] w/Dr. Acosta MWF 4hrs 2K 2.5Ca F- 180NR EDW 91.5kg * When discharge is anticipated, please notify [facility] unit to resume outpatient treatments (2) Pulmonary edema: Plan: * Improved following UF on HD. 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 Hgb improved to 8.9. Patient reports ongoing hematochezia * H&H is gradually trending down during hospitalization (4) Weakness: Plan: * staff educator advised to get patient up to chair each day * Awaiting PT assessment (5) Elevated troponin: Plan: * Asymptomatic * 12/20/21 Nuclear stress test suggestive of small to moderate perfusion defect in the RCA distribution. Recommend consultation w/ Cardiology to discuss catheterization vs. medical management. Patient is a poor candidate for anticoagulation or antiplatelet therapy due to his h/o radiation colitis w/ recurrent LGI bleeding Admission and Anticipated Discharge Date Admission Date: December 16, 2021 Subjective Mr. Madden was evaluated in his hospital room this morning. He was dialyzed yesterday for 3L volume removal. He reports that he tolerated dialysis without complication and his breathing is subjectively improved. Mr. Madden currently denies fever, angina, dyspnea or overt bleeding. He was sitting in a chair this morning but has not yet begun physical therapy Review of Systems Constitutional: + weakness; no fever Eyes: no problem reported Ear, Nose, Mouth, Throat: no problem reported Respiratory: no dyspnea Cardiovascular: no chest pain and no edema Gastrointestinal: no abdominal pain Musculoskeletal: no back pain Integumentary: no rash Neurologic: no confusion Physical Exam Constitutional: not in distress Eyes: PERRL, conjunctivae normal, anicteric sclerae ENMT: external ear and nose normal, oropharynx normal Respiratory: no respiratory distress Auscultation: lungs clear to auscultation bilaterally Cardiovascular: Rate/Rhythm: regular rate and regular rhythm Extremities: + AV fistula (+ bruit); no edema (pretibial hemosiderin staining from previous lymphedema) Gastrointestinal (Abdomen): normal bowel sounds, soft, nontender, no hepatosplenomegaly Skin: no rashes, warm and dry Neurologic: awake; not confused Results & Data ([facility]) Vital Signs (Past 12 Hours) Vital Signs Temp Pulse Pulse Pulse Resp BP Pulse Ox 12/21/21 07:42 36.7 C 99 H 20 135/58 L 92 12/21/21 03:20 36.9 C 63 18 142/37 H 90 12/20/21 23:40 36.9 C 64 14 129/45 L 91 12/20/21 22:19 82 Laboratory Results Laboratory Tests 12/21/21 07:06 WBC 4.86 Hgb 8.1 L Hct 25.5 L Plt Count 128 L PG Care Time/CCT Total # of Minutes Spent Total Time Spent with Patient: Total time spent is greater than 50% in coordination of care (as documented) at patient's floor/unit and/or counseling patient: Coding Level of Care Code 75859 Subseq Hosp Care Lvl 3 Diagnoses ESRD needing dialysis N18.6; Z99.2 Pulmonary edema J81.1 Anemia D64.9 Weakness R53.1 Elevated troponin R77.8
[2021-12-21] MEDS ORDERED: INSULIN GLARGINE SOLOSTAR 100 UNITS/ML 3 ML PEN SC SCH (09:00)
[2021-12-21] MEDS: METOPROLOL TARTRATE 50 MG TAB PO SCH (09:36)
[2021-12-21] MEDS: PANTOprazole 40 MG in SYRINGE 0 ML IV SCH ×2 (09:36→22:09)
[2021-12-21] MEDS: CALCIUM ACETATE 667 MG CAP/TAB PO SCH ×3 (09:36→17:28)
[2021-12-21] MEDS: INSULIN ASPART PER UNIT SC SCH ×4 (09:38→22:08)
[2021-12-21] MEDS: NEPHROCAPS PO SCH (11:38)
[2021-12-21] MEDS: FOLIC ACID 1 MG TAB PO SCH (11:38)
--- NOTE | 2021-12-21 13:05 | Cardiology Consultation ---
Date of Consultation December 21, 2021 Assessment & Plan (1) Chest pain: (2) CAD (coronary artery disease): (3) Anemia: (4) Paroxysmal atrial tachycardia: (5) End-stage renal disease on hemodialysis: 86-year-old man with multiple comorbidities including end-stage renal disease requiring hemodialysis and anemia requiring recurrent transfusions who historically has developed anginal type symptoms when he is more profoundly anemic. Although his coronary artery disease was previously nonocclusive, his recent myocardial perfusion scan suggest that he has probably developed at least single-vessel occlusive CAD (inferior ischemia on scan). The area of involvement was not large and he has a major contraindication to antiplatelet therapy with chronic GI bleeding and transfusion dependent anemia. Therefore, would agree with medical management rather than stent placement, since this would require at least temporary antiplatelet agents. As you noted, no mortality benefit to stenting, therefore if more frequent transfusions control his angina would prefer this over an intervention requiring antiplatelet agents. However, if this strategy is unsuccessful, could consider a bare-metal stent with about 30 days of antiplatelet agent use, but even this could result in a substantial increase in his GI bleeding. He was on diltiazem and metoprolol to control his PAT, his diltiazem was discontinued. If he remains off diltiazem, would continue to titrate metoprolol upward to prevent tachycardia. Will continue to follow along. Thank you for this consultation. 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 He was transfused and became transiently fluid overloaded (resolved), his chest discomfort did not recur after transfusion. He underwent a myocardial perfusion scan which showed a small to moderate inferior defect suggesting a limited area of RCA ischemia. On telemetry, his ECG appears to show sinus rhythm with frequent PACs and short runs of paroxysmal atrial tachycardia. At baseline, activity is limited by leg weakness and mild dyspnea on exertion. He only notes "chest heaviness" when he is anemic, at which time it can occur with exertion or even at rest. He has noted this pattern over an extended period of time, he has received over a dozen transfusions in the past 2 years. At the time of my evaluation, he was comfortable and noted no chest discomfort, dyspnea, or palpitations. Allergies Allergy/AdvReac Type Severity Reaction Status Date / Time clarithromycin AdvReac Intermediate confusion Verified 12/06/21 18:55 fish oil AdvReac Intermediate hx of Verified 12/06/21 18:55 hemorrhage in past Sulfa (Sulfonamide AdvReac Intermediate severe Verified 12/06/21 18:55 Antibiotics) agitation/delirium Home Medications Medication Instructions Recorded Confirmed Type vit B complx, C-iron 8 mg-folic 1 tab PO QAM tab 03/05/19 12/16/21 History acid 800 mcg-D3 1,000 unit-zinc tablet (ProRenal) insulin aspar prot-insulin aspart See Rx Instructions SUBCUT BID 02/09/21 12/16/21 Rx 100 unit/mL (70-30) subcutaneous #135 ml pen (Novolog Mix 70-30FlexPen U-100) pravastatin 40 mg tablet 40 mg PO QPM #90 tab 03/06/21 12/16/21 Rx calcium acetate(phosphat bind) 667 2,001 mg PO TIDM cap 05/03/21 12/16/21 History mg capsule docusate sodium 50 mg capsule 50 mg PO DAILY PRN cap 05/03/21 12/16/21 History (Colace Clear) folic acid 1 mg tablet 1 mg PO QAM #90 tab 05/22/21 12/16/21 Rx metoprolol tartrate 25 mg tablet 37.5 mg PO BID #90 tab 09/15/21 12/16/21 Rx lorazepam 0.5 mg tablet 0.5 mg PO Q12H PRN 12/06/21 12/16/21 History diltiazem HCl 120 mg 120 mg PO QAM #90 cap 12/11/21 12/16/21 Rx capsule,extended release 24 hr Patient History Medical History (Updated 12/21/21 @ 12:57 by Nakul Glover MD) Acute dyspnea Anemia Arteriovenous fistula thrombosis AV fistula AV fistula Breathlessness 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 S/P EGD WITH CAUTERIZATION 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 COVID-19 Diabetic neuropathy Dialysis AV fistula malfunction Dyslipidemia Emphysema lung suggested per CXR End-stage renal disease on hemodialysis DIALYSIS SATURDAY/SATURDAY/SATURDAY AT [facility] VIA PERMACATH GAVE (gastric antral vascular ectasia) Gout Hearing deficit LEFT History of blood transfusion 2/2 GIB felt r/t radiation therapy s/p total of 6 units PRBC's since 10/2018 Hypertension Nontoxic multinodular goiter Osteoarthritis Phimosis of penis Prostate cancer S/P SURGERY, XRT Prostate cancer Pulmonary nodules UNDER SURVEILLANCE Shortness of breath T2DM (type 2 diabetes mellitus) Thrombocytopenia Transient ischemic attack (TIA) 2014--no deficits, no neurologist Surgical History Amputation of left little finger H/O prostatectomy History of arthroscopy LEFT KNEE History of bowel resection BOWEL LACERATION DURING ATTEMPTING POLYPECTOMY History of cardiac cath X3 = NO STENTS History of cataract surgery RIGHT/LEFT History of colonoscopy History of esophagogastroduodenoscopy (EGD) + CAUTERIZATION (2/2 GIB) History of surgery fistulogram with Dr. Hanna through Right AV fistula 08/17/19 History of tooth extraction S/P arteriovenous (AV) fistula creation LEFT Right side recently ballooned and stented in [facility] S/P arteriovenous (AV) fistula creation right 05/[address] 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 Person Required: No Beliefs That Will Affect Care: None marital status: / Current Living Situation: Family Current Living Situation Comment: Lives with Grandson current occupational status: retired How many Children do You have: 1 Feels Safe at Home: Yes Childhood Exposure to Second-Hand Smoke: Yes Diet Comment: regular caffeine: Yes (coffee, once in a while) during the past year weight has: remained stable Dental Care, Regularly: Yes Physical Activity Frequency: Does not Exercise Seatbelt Use: always Sunscreen Use: No Assistive Devices: Denture - Upper, Denture - Lower and Walker Physical Exam Physical Exam: Will be white male appears comfortable. BP normotensive. Pulse 96 and regular with frequent ectopy. Skin: no generalized lesions. HEENT: unremarkable. Neck: Jugular venous pulse at the clavicle at 90 degrees, no carotid bruits. Lungs: clear bilaterally. Cardiac: regular rhythm with ectopy, no murmur or gallop. Abdomen: benign. Extremities: no edema, pulses intact. Neurologic: normal affect, nonfocal. Results & Data ([facility]) Vital Signs (Past 12 Hours) Vital Signs Temp Pulse Pulse Pulse Resp BP Pulse Ox 12/21/21 11:50 98.1 F 96 H 18 134/59 L 94 12/21/21 10:01 81 12/21/21 07:42 98.1 F 99 H 20 135/58 L 92 12/21/21 03:20 98.4 F 63 18 142/37 H 90 Laboratory Results Initial troponin 0.03, peak 0.17. Hemoglobin 8.1 (up from 7.1 on admission) Normal electrolytes, BUN 63, creatinine 7.63. Diagnostic Findings ECG showed "possible atrial fibrillation", however telemetry suggests this is a sinus and he has a history of sinus with paroxysmal atrial tachycardia which has been misinterpreted as atrial fibrillation in the past. Echocardiogram this admission showed EF 60 to 65% with moderate LVH, sclerotic aortic valve without stenosis, mildly dilated right ventricle. Compared with 2020 study, RV systolic pressure now normal. PG Care Time/CCT Total # of Minutes Spent Total Time Spent with Patient: Total time spent is greater than 50% in coordination of care (as documented) at patient's floor/unit and/or counseling patient: Coding Level of Care Code 66614 Initial Inpt Care Lvl 3 Diagnoses Chest pain R07.9 Anemia D64.9 Anemia type: unspecified type CAD (coronary artery disease) I25.10 Paroxysmal atrial tachycardia I47.1 End-stage renal disease on hemodialysis N18.6; Z99.2 (1) Anemia Anemia type: unspecified type Qualified Code(s): D64.9 - Anemia, unspecified
--- NOTE | 2021-12-21 16:22 | Hospitalist Progress Note ---
Date of Service December 21, 2021 Assessment & Plan (1) Acute respiratory failure: Plan: Doing better; likely combination of ESRD related fluid overload and anemia with possible combination of angina equivalent At present transfuse as necessary, fluid removal via dialysis (2) Anemia: Plan: Hemoglobin stable; transfuse as necessary (3) GAVE (gastric antral vascular ectasia): Plan: -Stable, no signs/symptoms of an UGI bleed today. See above. (4) Chest pain: Plan: -Pain-free; cardiology input note (5) Hypertension: Plan: BP acceptable but slight increase in heart ratecautiously increase metoprolol (6) Paroxysmal atrial tachycardia: Plan: -As above (7) End stage renal disease: Plan: -Nephrology following, ESRD management per them (8) T2DM (type 2 diabetes mellitus): Plan: Much lower insulin requirement; sugars acceptablefollow (9) Transient ischemic attack (TIA): Plan: -In 2014, no residual symptoms, does not follow with neurology. (10) Acquired phimosis of penis: Plan: -Seen by urology on 12/07, plan for dorsal slit procedure to be done in OR at a later time. Plan: Disposition: Awaiting PT input for safe discharge plan Admission and Anticipated Discharge Date Admission Date: December 16, 2021 Subjective Follow-up of presentation with shortness of breath; doing well, no complaints Physical Exam Physical Exam: Constitutional and general: No acute distress, looks biologic age Head and face: No puffiness, atraumatic Eyes: No scleral icterus, extraocular movements normal Neck: Supple, no JVD Musculoskeletal: No acute joint swelling, no bony abnormalities Skin/dermatologic/integument: No rash, no purpura Hematologic and lymphatic: pallor +, no petechia Gastrointestinal/abdomen: Nondistended, soft, nonacute Neurologic: Cranial nerves intact, nonfocal Psychiatry: Awake, alert, pleasant, communicative Cardiovascular: Heart rhythm regular, no rub, soft systolic murmur, no gallop Respiratory: Chest movements equal, no use of accessory muscles, no adventitious sounds Extremities: No edema, no cyanosis Results & Data Results & Data ([facility]) Vital Signs (Past 12 Hours) Vital Signs Temp Pulse Pulse Resp BP Pulse Ox 12/21/21 11:50 36.7 C 96 H 18 134/59 L 94 12/21/21 10:01 81 12/21/21 07:42 36.7 C 99 H 20 135/58 L 92 PG Care Time/CCT Total # of Minutes Spent Total Time Spent with Patient: Total time spent is greater than 50% in coordination of care (as documented) at patient's floor/unit and/or counseling patient: Coding Level of Care Code 12842 Subseq Hosp Care Lvl 2 Diagnoses Acute respiratory failure J96.00 Anemia D64.9 GAVE (gastric antral vascular ectasia) K31.819 Chest pain R07.9 Hypertension I10 Paroxysmal atrial tachycardia I47.1 End stage renal disease N18.6 T2DM (type 2 diabetes mellitus) E11.9 Transient ischemic attack (TIA) G45.9 Acquired phimosis of penis N47.1
[2021-12-21] MEDS: PRAVASTATIN SOD 40 MG TAB PO SCH (22:09)
[2021-12-21] MEDS: METOPROLOL TARTRATE 25 MG TAB PO SCH (22:10)
[2021-12-22] MEDS ORDERED: SODIUM CHLORIDE 0.9% 1000ML 1,000 ML IV PRN (07:00)
[2021-12-22] MEDS ORDERED: EPOETIN ALFA 10,000 UNITS/ML VIAL IV SCH (07:00)
[2021-12-22 07:25] LABS: Basophils # (auto) 0.01 K/uL (0-0.2); Basophils % (auto) 0.2 %; Eosinophils # (auto) 0.26 K/uL (0-0.5); Eosinophils % (auto) 5.5 %; Hematocrit (blood only) 25.3 % (42-52); Hemoglobin 8.2 g/dL (14.0-18.0); Immature Granulocytes # (auto) 0.03 K/uL (0.00-0.02); Immature Granulocytes % (auto) 0.6 %; Lymphocytes # (auto) 1.19 K/uL (1.2-3.4); Mean Corpuscular Hgb Conc 32.4 g/dL (32-36); Mean Corpuscular Volume 92.7 fL (80-100); Mean Platelet Volume 9.2 fL (7.4-10.4); Monocytes # (auto) 0.41 K/uL (0.11-0.59); Monocytes % (auto) 8.6 %; Neutrophils # (auto) 2.86 K/uL (1.4-6.5); Neutrophils % (auto) 60.1 %; Platelet Count 135 K/uL (130-400); RDW Coefficient of Variation 15.9 % (11.5-14.5); RDW Standard Deviation 53.3 fL (36.4-46.3); Red Blood Count 2.73 M/uL (4.7-6.1); White Blood Count 4.76 K/uL (4.8-10.8)
[2021-12-22 07:56] LABS: Iron 35 mcg/dl (35-175); Total Iron Binding Cap Calc 233 mcg/dl (250-450); Transferrin (FE) Percent Satur 15 % (20-50); Unsaturated Iron Binding Cap 198 mcg/dl (155-355)
[2021-12-22] MEDS: INSULIN ASPART PER UNIT SC SCH ×3 (07:58→17:00)
[2021-12-22] MEDS: FOLIC ACID 1 MG TAB PO SCH (08:07)
[2021-12-22] MEDS: CALCIUM ACETATE 667 MG CAP/TAB PO SCH ×3 (08:07→16:53)
[2021-12-22] MEDS: METOPROLOL TARTRATE 25 MG TAB PO SCH (08:09)
[2021-12-22] MEDS: NEPHROCAPS PO SCH (08:11)
[2021-12-22] MEDS: PANTOprazole 40 MG in SYRINGE 0 ML IV SCH (08:12)
--- NOTE | 2021-12-22 08:37 | Pharmacy Report ---
Pharmacy Glycemic Short Note 2 - Date of Service December 22, 2021 - Glycemic Short BSG Results (Last 24 hours): 12/21/21 12/21/21 12/21/21 11:25 16:18 20:23 POC Glucose 162 H 101 H 141 H 12/22/21 07:21 POC Glucose 152 H OUTPATIENT ANTIDIABETIC REGIMEN: * 70/30 insulin: 72 units w/ breakfast + 74 units w/ supper * A1c = 5.9% 12/17/21 (however interpret w/ caution due to anemia and ESRD) ASSESSMENT: 12/22 * BSGs remain well-controlled, ranging 97-162 mg/dL yesterday, fasting BSG of 152 mg/dL this morning * Will plan to continue current Novolog parameters and increase Lantus dose today 12/20 * BSGs well-controlled yesterday, ranging 94-150 mg/dL, fasting BSG of 82 mg/dL this morning * Received 46 units of insulin (30 units of Lantus and 16 units of prandial/correctional bolus) * NPO this morning, now ordered a diet again with lunch * Originally held Lantus this morning in light of NPO, but will restart reduced Lantus with lunch today 12/18 * Type 2 diabetic admitted for resp failure possibly due to fluid OL in combo with anemia * Fasting hypoglycemia observed this AM, BSGs in 60s with 80 units basal on board. - will withhold additional basal doses today and begin reduced dose tomorrow AM. Novolog order will be adjusted tomorrow AM to allow for carb coverage. Will withhold carb coverage as patient's BSGs running low today and basal dose administered this AM. * Will base insulin doses upon an anticipated total daily requirement of ~70 units/day. Upon prior admissions he has required 70-90 units of insulin per day * Will refrain from using 70/30 insulin while hospitalized due inability to titrate insulin doses, along with greater risk of hypoglycemia when nutritional status changes while hospitalized PLAN FOR INPATIENT GLYCEMIC CONTROL: * Basal insulin - increase * Lantus 25 units SC daily * Bolus insulin - no change * NovoLog per scale ACHS or Q6hrs while NPO * Goal Range: Low 110 mg/dL - High 140 mg/dL * Correction Factor: 25 mg/dL/unit * Nutritional / Prandial insulin per carb ratio of 1 unit per 10 grams CHO consumed
[2021-12-22] MEDS ORDERED: INSULIN GLARGINE SOLOSTAR 100 UNITS/ML 3 ML PEN SC SCH (09:00)
--- NOTE | 2021-12-22 10:04 | Nephrology Progress Note ---
Date of Service December 22, 2021 Assessment & Plan (1) ESRD needing dialysis: Plan: * HD today. Will attempt 2L UF. Note that hospital weight has risen despite UF on HD. Hospital weight does not appear to be accurate * Outpatient HD orders: [facility] Seth w/Dr. Acosta MWF 4hrs 2K 2.5Ca F- 180NR EDW 91.5kg * When discharge is anticipated, please notify [facility] HD unit to resume outpatient treatments (2) Pulmonary edema: Plan: * Improved following UF on HD. 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 Hgb improved to 8.9. Patient reports ongoing hematochezia * H&H is gradually trending down during hospitalization (4) Weakness: Plan: * set staff fitter advised to get patient up to chair each day * Awaiting PT assessment * Able to ambulate in room w/ OT and the use of a rolling walker (5) Elevated troponin: Plan: * Asymptomatic * 12/20/21 Nuclear stress test suggestive of small to moderate perfusion defect in the RCA distribution. Cardiology has recommended medical management as intervention will require antiplatelet therapy and risk worsening LGI bleeding Admission and Anticipated Discharge Date Admission Date: December 16, 2021 Subjective Mr. Madden was evaluated in his hospital room this morning. He was sitting up in a chair breathing comfortably on RA. He did participate in OT yesterday and was able to ambulate in his room with the use of a rolling walker. PT evaluation of gross motor skills was delayed due to recent cardiac stress test. Mr. Madden denies both angina at rest or with exertion Review of Systems Constitutional: + weakness; no fever Eyes: no problem reported Ear, Nose, Mouth, Throat: no problem reported Respiratory: no dyspnea Cardiovascular: no chest pain and no edema Gastrointestinal: no abdominal pain Musculoskeletal: no back pain Integumentary: no rash Neurologic: no confusion Physical Exam Constitutional: not in distress Eyes: PERRL, conjunctivae normal, anicteric sclerae ENMT: external ear and nose normal, oropharynx normal Respiratory: no respiratory distress Auscultation: lungs clear to auscultation bilaterally Cardiovascular: Rate/Rhythm: regular rate and regular rhythm Extremities: + AV fistula (+ bruit); no edema (pretibial hemosiderin staining from previous lymphedema) Gastrointestinal (Abdomen): normal bowel sounds, soft, nontender, no hepatosplenomegaly Skin: no rashes, warm and dry Neurologic: awake; not confused Results & Data ([facility]) Vital Signs (Past 12 Hours) Vital Signs Temp Pulse Pulse Pulse Resp BP BP 12/22/21 09:40 62 183/78 H 12/22/21 09:37 61 162/71 H 12/22/21 09:22 36.5 C 68 12/22/21 07:40 36.7 C 66 15 177/68 H 12/22/21 03:18 36.7 C 68 18 172/52 H 12/21/21 23:55 79 12/21/21 23:15 36.9 C 73 18 156/53 H Pulse Ox 12/22/21 09:40 12/22/21 09:37 12/22/21 09:22 12/22/21 07:40 94 12/22/21 03:18 95 12/21/21 23:55 12/21/21 23:15 95 Laboratory Results Laboratory Tests 12/22/21 07:01 WBC 4.76 L Hgb 8.2 L Hct 25.3 L Plt Count 135 PG Care Time/CCT Total # of Minutes Spent Total Time Spent with Patient: Total time spent is greater than 50% in coordination of care (as documented) at patient's floor/unit and/or counseling patient: Coding Level of Care Code 28625 Subseq Hosp Care Lvl 3 Diagnoses ESRD needing dialysis N18.6; Z99.2 Pulmonary edema J81.1 Anemia D64.9 Weakness R53.1 Elevated troponin R77.8
--- NOTE | 2021-12-22 11:23 | Cardiology Progress Note ---
Date of Service December 22, 2021 Assessment & Plan (1) Chest pain: (2) CAD (coronary artery disease): (3) Anemia: (4) Paroxysmal atrial tachycardia: (5) End-stage renal disease on hemodialysis: Plan: Patient is doing well, asymptomatic from a cardiac standpoint and hemodynamically stable. As noted, medical management for his presumed coronary artery disease, with specific attention to addressing his longstanding anemia with transfusions as needed to avoid recurrent angina. The area of involvement was not large and he has a major contraindication to antiplatelet therapy with chronic GI bleeding and transfusion dependent anemia. If this strategy is unsuccessful, could consider a bare-metal stent with about 30 days of antiplatelet agent use, but even this could result in a substantial increase in his GI bleeding. Heart rate and atrial ectopy seen well controlled on his current dose of metoprolol tartrate 50 mg twice daily. No new cardiology recommendations. Will sign off, please contact if his clinical status changes. Thank you. Admission and Anticipated Discharge Date Admission Date: December 16, 2021 Subjective Comfortable overnight, no chest pain for several days now. No dyspnea, subjective palpitations, or other complaints. Telemetry showed sinus rhythm with first-degree AV block in the 60 bpm range. Physical Exam Physical Exam: No distress. BP mildly hypertensive. Pulse 68 bpm with occasional ectopy. Skin: no generalized lesions. HEENT: unremarkable. Neck: Jugular venous pulse at the clavicle at 90 degrees, no carotid bruits. Lungs: clear bilaterally. Cardiac: regular rhythm with ectopy, no murmur or gallop. Abdomen: benign. Extremities: no edema, pulses intact. Neurologic: normal affect, nonfocal. Results & Data ([facility]) Laboratory Results Hemoglobin 8.2 (stable) PG Care Time/CCT Total # of Minutes Spent Total Time Spent with Patient: Total time spent is greater than 50% in coordination of care (as documented) at patient's floor/unit and/or counseling patient: Coding Level of Care Code 94280 Subseq Hosp Care Lvl 3 Diagnoses Chest pain R07.9 CAD (coronary artery disease) I25.10 Anemia D64.9 Anemia type: unspecified type Paroxysmal atrial tachycardia I47.1 End-stage renal disease on hemodialysis N18.6; Z99.2 (1) Anemia Anemia type: unspecified type Qualified Code(s): D64.9 - Anemia, unspecified
--- NOTE | 2021-12-22 15:50 | Discharge Summary ---
Date of Service December 22, 2021 Admission HPI Per Admitting Provider Patient is an 86 y/o M with PMH of ESRD on HD (), nonobstructive CAD, insulin-dependent DM2, HTN, hyperlipidemia, prostate cancer s/p prostatectomy and XRT, with chronic/recurrent GI bleeds requiring frequent transfusion, anemia, gastric antral vascular ectasia, and paroxysmal atrial tachycardia who presents today from dialysis center due to symptomatic anemia. Patient was at dialysis appt and was found to have Hgb of 7.1 with exertional chest pain and exertional dyspnea. He did note the chest pain is substernal, began last evening and has been consistent since onset, accompanied by exertional dyspnea. He states the way he feels today is consistent with how he has felt in the past when his Hgb is low. 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 He denies palpitations, changes to his chronic cough, fever/chills, abdominal pain, nausea, vomiting, and hematuria. Patient hypertensive in ED, otherwise vital signs stable and within normal limits, Hgb 7.1, troponin neg, mild pulmonary edema seen on CXR, no electrolyte abnormalities. Patient was ordered 2 unites pRBCs, also given 80 IV Lasix, as well as clonidine for BP in Ed. Hospitalist service was consulted for evaluation and admission. Principal Diagnosis Acute diastolic heart failure Discharge Data Allergies Allergy/AdvReac Type Severity Reaction Status Date / Time clarithromycin AdvReac Intermediate confusion Verified 12/06/21 18:55 fish oil AdvReac Intermediate hx of Verified 12/06/21 18:55 hemorrhage in past Sulfa (Sulfonamide AdvReac Intermediate severe Verified 12/06/21 18:55 Antibiotics) agitation/delirium Consultations 12/16/21 17:05 ED Decision to Admit Stat 12/17/21 08:23 Consult Nephrology Stat 12/20/21 17:46 Consult Cardiology Routine Hospital Course (1) Acute diastolic (congestive) heart failure: Overall picture consistent with acute diastolic heart failure with NSTEMI (probably type II) precipitated by acute on chronic anemia Improved after transfusion, and dialysis treatment (2) NSTEMI (non-ST elevated myocardial infarction): Did have angina during acute event with rise troponin; likely a type II event though a type I event cannot be ruled out; stress test undertaken for risk stratification showed a mild to moderate area of ischemia; however, given history of chronic GI blood loss due to radiation proctitis and GAVE antiplatelet agents would be contraindicated particularly of some duration; also, given preserved LV function likely there would be no mortality benefit of coronary intervention; therefore, in consensus with cardiology medical management optedbeta-herminia uptitrated (Cardizem stopped)should follow up with cardiology; if disabling angina continues then consideration should be given to a bare-metal stent that would still require about a month of antiplatelet therapy. As noted, at present very comfortable chest pain-free and on medical management. (3) GAVE (gastric antral vascular ectasia): -Stable, no signs/symptoms of an UGI bleed. See above. (4) Acute respiratory failure with hypoxia: Secondary to #1resolved (5) Hypertension: Metoprolol increased; can be further uptitrated depending on parameters blood pressure still high end but avoid daily changes (6) Paroxysmal atrial tachycardia: -Had episode in-house; at present heart rate controlled (7) End stage renal disease: -ESRD per schedule; did get an extra session in-house (8) T2DM (type 2 diabetes mellitus): Has had low blood sugars and is currently on a extremely lower insulin regimen; discharge regimen changed to Lantus 25 units in a.m. which he is getting in-house that may need to be adjusted that he understood (9) Transient ischemic attack (TIA): -In 2014, no residual symptoms, does not follow with neurology. (10) Acquired phimosis of penis: -Seen by urology on 12/07, plan for dorsal slit procedure to be done in OR at a later time. Disposition: Awaiting PT input for safe discharge plan Total Time Total Time Spent Total Time Spent (In Minutes): 40 Discharge Plan Discharge Items Patient Disposition: Home - Self-Care Reason For Visit: CHEST PAIN WITH ANEMIA Discharge Diagnosis: Acute diastolic heart failure precipitated by acute on chronic anemia with type II NSTEMI and fluid overload related to ESRD Activity: As commented below Activity Comment: as tolerated Non-emergency contact: Primary Care Provider and Mud Mixer Call non-emergency contact if: your symptoms worsen Follow-up/Referrals: Noel Raymundo MD [Primary Care Provider] - Hans Mckinnon PA-C [Physician Ornamental Metal Erector Apprentice] - (Posthospitalization1 to 2 weeks) Diet: Carb Consistent or DM2, Dialysis Renal and Heart Healthy Fluids: 1500ml (6 cups) Addtl Attending Provider Instructions: Please note your insulin requirement is much much lower than before; check the blood sugar at home and if sugars rise then contact your primary doctor and the insulin dose might need to be increased Pending Studies at Discharge: No Stand-Alone Forms: My [facility] [employer], Smoking Cessation Medications and DC Order Prescriptions: New metoprolol tartrate 25 mg Tablet 62.5 mg PO BID 30 Days Qty: 150 RF: 0 Lantus Solostar U-100 Insulin 100 unit/mL (3 mL) Insulin Pen 25 unit SC DAILY 30 Days Qty: 7.5 RF: 0 nitroglycerin [Nitrostat] 0.4 mg Tablet, Sublingual 0.4 mg sublingual UD PRN (Reason: chest pain) 30 Days Qty: 20 RF: 0 Continued pravastatin 40 mg tablet 40 mg PO QPM Qty: 90 RF: 3 ProRenal 8 mg iron-800 mcg-1,000 unit tablet 1 tab PO QAM RF: 0 calcium acetate(phosphat bind) 667 mg capsule 2,001 mg PO TIDM RF: 0 folic acid 1 mg tablet 1 mg PO QAM Qty: 90 RF: 3 Colace Clear 50 mg capsule 50 mg PO DAILY PRN (Reason: Constipation) RF: 0 lorazepam 0.5 mg tablet 0.5 mg PO Q12H PRN (Reason: anxiety) RF: 0 Discontinued insulin asp prt-insulin aspart [Novolog Mix 70-30FlexPen U-100] 100 unit/mL (70-30) insulin pen See Rx Instructions subcut BID Qty: 135 RF: 3 metoprolol tartrate 25 mg tablet 37.5 mg PO BID Qty: 90 RF: 5 diltiazem HCl 120 mg capsule,extended release 24hr 120 mg PO QAM Qty: 90 RF: 3 Discharge Orders: Discharge Order (Routine); Ordered 12/22/21 Ordered By: Mike Spencer/Other Patient Handouts: Managing Type 2 Diabetes Admission Data Admit Date/Time: 12/16/21 17:11 Attending Provider: Mike Desai Admit Provider: Lázaro Abdalla Primary Care Provider: Noel Raymundo Other Providers: Lázaro Abdalla ; Luis Armando Ulloa ; Nakul Glover Coding Level of Care Code D/C DAY MANAGEMENT >30 MINS Diagnoses GAVE (gastric antral vascular ectasia) K31.819 Hypertension I10 Paroxysmal atrial tachycardia I47.1 End stage renal disease N18.6 T2DM (type 2 diabetes mellitus) E11.9 Transient ischemic attack (TIA) G45.9 Acquired phimosis of penis N47.1 Acute diastolic (congestive) heart failure I50.31 NSTEMI (non-ST elevated myocardial infarction) I21.4 Acute respiratory failure with hypoxia J96.01
== END 2021-12-22 17:15 | disposition home or self-care (01) | DRG 280 ==
LOC: ED 09:59 → SUATTDRO 17:11 → 2S 17:11

== ENCOUNTER 2022-07-16 15:48 | Observation (INO) ==
[2022-07-16 17:02] LABS: Basophils # (auto) 0.02 K/uL (0-0.2); Basophils % (auto) 0.5 %; Eosinophils # (auto) 0.06 K/uL (0-0.50); Eosinophils % (auto) 1.4 %; Hematocrit (blood only) 28.8 % (40.1-51.0); Hemoglobin 9.1 g/dl (14.0-18.0); Immature Granulocytes # (auto) 0.02 K/uL (0.00-0.02); Immature Granulocytes % (auto) 0.5 %; Lymphocytes # (auto) 0.97 K/uL (1.2-3.4); Lymphocytes % (auto) 23.4 %; Mean Platelet Volume 10.6 fL (9.4-12.4); Monocytes # (auto) 0.39 K/uL (0.24-0.82); Monocytes % (auto) 9.4 %; Neutrophils # (auto) 2.68 K/uL (1.4-6.5); Neutrophils % (auto) 64.8 %; Platelet Count 114 K/uL (130-400); White Blood Count 4.14 K/ul (4.8-10.8)
[2022-07-16 17:14] LABS: Albumin Globulin Ratio 1.3 (0.9-2); BUN Creatinine Ratio 6.4 (10-20); Bilirubin,Total 0.4 mg/dl (0.2-1.0); Calcium 8.8 mg/dl (8.5-10.1); Creatinine Clr Calc Pharmacy 15.4 ml/min; Est GFR (African American) 15.7 ml/min; Est GFR (Non-African American) 13.5 ml/min; Potassium 3.8 mmol/L (3.5-5.1)
[2022-07-16 17:46] LABS: Mean Corpuscular Hemoglobin 29.9 pg (25.0-34.0); Mean Corpuscular Hgb Conc 31.6 g/dL (32.0-36.0); Mean Corpuscular Volume 94.7 fL (80.0-100.0); RDW Coefficient of Variation 15.9 % (11.5-14.5); RDW Standard Deviation 54.5 fL (36.4-46.3); Red Blood Count 3.04 M/uL (4.63-6.08)
--- NOTE | 2022-07-16 18:16 | XRay Report ---
XR chest 1V portable HISTORY: 87 years-old Male lightheaded COMPARISON: Chest radiograph 12/19/2021 TECHNIQUE: Portable AP view of the chest FINDINGS: Cardiac silhouette is enlarged. Chronic interstitial coarsening with mild right hemidiaphragmatic barry vation. Atherosclerosis of the aorta. No pneumothorax, pleural effusion or overt pulmonary edema. Mil d linear subsegmental atelectasis versus scarring of the left lung base. Degenerative changes of the shoulders and spine. IMPRESSION: Cardiomegaly without acute process. ACT 112: Negative or not required by law. The above report was generated using voice recognition software. It may contain grammatical, syntax o r spelling errors. Electronically signed by: Otto Vazquez M.D. 07/16/2022 6:15 PM
--- NOTE | 2022-07-16 19:13 | Emergency Department Note ---
History of Present Illness General Chief complaint: Dizziness Stated complaint: DIZZINESS Time Seen by Provider: 07/16/22 16:55 History of Present Illness 87-year-old male presents to the ED with a chief complaint of some dizziness after dialysis today. He also states that during his dialysis his heart rate Going up and his blood pressure would drop. He states that they checked his blood pressure while standing after dialysis and he became lightheaded. He states that they gave him a 500 bolus of fluid after dialysis but that did not seem to help. Because of his irregular heartbeat that was elevated they sent him to the ED for evaluation. His initial heart rate when he came in was in the 140 range. When I saw him, it is slow down to about 80. The patient denies any additional specific complaints at this time. He does not feel lightheaded or dizzy at this time. Denies any chest pains or shortness of breath. He states that he was told in the past that he had A. fib by 1 doctor but another doctor told him that he did not have it. He is not on anticoagulation. He states that he has a history of bladder bleeding related to prostate cancer and is unable to take any anticoagulants. He is chronically on metoprolol. Home Medications Medication Instructions Recorded Confirmed Type vit B complx, C-iron 8 mg-folic 1 tab PO QAM 03/05/19 06/14/22 History acid 800 mcg-D3 1,000 unit-zinc tablet (ProRenal) calcium acetate(phosphat bind) 667 2,001 mg PO TIDM 05/03/21 06/14/22 History mg capsule docusate sodium 50 mg capsule 50 mg PO DAILY PRN Constipation 05/03/21 06/14/22 History (Colace Clear) metoprolol tartrate 25 mg tablet See Rx Instructions .Route 01/09/22 06/14/22 Rx .COMPLEX #150 tabs lorazepam 0.5 mg tablet 0.5 mg PO Q12H PRN anxiety #60 tabs 01/23/22 06/14/22 Rx pravastatin 40 mg tablet 40 mg PO QPM #90 tabs 03/07/22 06/14/22 Rx insulin glargine 100 unit/mL (3 27 unit (0.27 mL) SC DAILY #30 mL 06/15/22 Rx mL) subcutaneous pen (Lantus Solostar U-100 Insulin) folic acid 1 mg tablet 1 mg PO QAM #90 tabs 06/19/22 Rx Allergies Allergy/AdvReac Type Severity Reaction Status Date / Time clarithromycin AdvReac Intermediate confusion Verified 06/14/22 09:10 fish oil AdvReac Intermediate hx of Verified 06/14/22 09:10 hemorrhage in past Sulfa (Sulfonamide AdvReac Intermediate severe Verified 06/14/22 09:10 Antibiotics) agitation/delirium Past Med/Surg History Medical History Acute dyspnea Acute respiratory failure with hypoxia Anemia Arteriovenous fistula thrombosis AV fistula AV fistula Breathlessness Chest pain 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 S/P EGD WITH CAUTERIZATION 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 COVID-19 Diabetic neuropathy Dialysis AV fistula malfunction Dyslipidemia Emphysema lung suggested per CXR End-stage renal disease on hemodialysis DIALYSIS SATURDAY/SATURDAY/SATURDAY AT [facility] VIA PERMACATH Exertional dyspnea GAVE (gastric antral vascular ectasia) Gout Hearing deficit LEFT History of blood transfusion 2/2 GIB felt r/t radiation therapy s/p total of 6 units PRBC's since 10/2018 Nontoxic multinodular goiter Osteoarthritis Phimosis of penis Prostate cancer S/P SURGERY, XRT Pulmonary nodules UNDER SURVEILLANCE T2DM (type 2 diabetes mellitus) Thrombocytopenia Transient ischemic attack (TIA) (2014) 2014--no deficits, no neurologist Surgical History Amputation of left little finger H/O prostatectomy History of arthroscopy LEFT KNEE History of bowel resection BOWEL LACERATION DURING ATTEMPTING POLYPECTOMY History of cardiac cath X3 = NO STENTS History of cataract surgery RIGHT/LEFT History of colonoscopy History of esophagogastroduodenoscopy (EGD) + CAUTERIZATION (2/2 GIB) History of surgery fistulogram with Dr. Hanna through Right AV fistula 08/17/19 History of tooth extraction S/P arteriovenous (AV) fistula creation LEFT Right side recently ballooned and stented in [facility] S/P arteriovenous (AV) fistula creation right 05/[address] Hanna S/P dialysis catheter insertion Permcath + attempted thrombectomy: 04/2019: MAC sedation at [facility] Family History Father Family history of diabetes mellitus Hypertension Brother Prostate cancer Mother Heart disease Hypertension Denies family history of Ovarian cancer Breast cancer Lung cancer Colorectal cancer Social History Smoking Status: Smoker, status unknown Second Hand Exposure: Yes (parents smoked/ smoked); Hx Alcohol Use: No Hx Substance Use: No Preferred Language: [place] Citizen Communication Ability: Effective Visual Impairment: No Limitations Hearing Ability: Normal Fiber Optic 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 Installer Required: No Beliefs That Will Affect Care: None marital status: / Current Living Situation: Family Current Living Situation Comment: Lives with Grandson current occupational status: retired How many Children do You have: 1 Feels Safe at Home: Yes Childhood Exposure to Second-Hand Smoke: Yes Diet Comment: regular caffeine: Yes (coffee, once in a while) during the past year weight has: remained stable Dental Care, Regularly: Yes Physical Activity Frequency: Does not Exercise Seatbelt Use: always Sunscreen Use: No Assistive Devices: Glasses Review of Systems A total of 10 systems reviewed and were otherwise negative Physical Exam Vital Signs Vital Signs - 24 hr 07/16/22 16:00 07/16/22 16:01 07/16/22 16:01 Pulse Rate 110 H Pulse Rate [Apical] 110 H Pulse Rhythm [Apical] Irregular Respiratory Rate 18 16 Respiratory Effort / Characteristics Non-Labored Respiratory Depth Normal Normal Respiratory Pattern Regular Blood Pressure 210/100 H Blood Pressure [Left Arm] 210/96 H Blood Pressure Mean 136 Blood Pressure Mean [Left Arm] 134 Pulse Oximetry 96 96 96 Oxygen Delivery Method Room Air Room Air Room Air Sepsis Recent Fever Within 48 Hours No Sepsis New/Unexplained Change in Mental Status No Sepsis Action Taken by Nursing No Action Required CONSTITUTIONAL/VITAL SIGNS: Reviewed / noted above. GENERAL: Non-toxic in appearance. INTEGUMENTARY: Warm, dry, and [place]. HEAD: Normocephalic. EYES: without scleral icterus or trauma. ENT/OROPHARYNX: clear and moist. LYMPHADENOPATHY/NECK: Is supple without lymphadenopathy or meningismus. RESPIRATORY: Clear to auscultation bilaterally. No increased work of breathing. CARDIOVASCULAR: Regular rate and irregular rhythm. GI/ABDOMEN: Soft and nontender. No organomegaly or pulsatile mass. EXTREMITIES: Warm and well perfused. BACK: No CVA tenderness. NEUROLOGICAL: Intact without focal deficits. PSYCHIATRIC: normal affect. MUSCULOSKELETAL: Normally developed with good muscle tone. TRIAGE NURSING DOCUMENTATION REVIEWED. Medical Decision Making Differential Diagnosis Differential includes acute coronary syndrome, myocardial infarction, CVA, TIA, anemia, infection, pneumonia, UTI, pyelonephritis, poor nutrition, dehydration, electrolyte disturbance,hypoglycemia. Medical Records Attestation: I reviewed the patient's medical records. Home Medications Current Medication List: was personally reviewed by me Laboratory Data Attestation: I reviewed the patient's lab results. Result diagrams: 07/16/22 16:21 07/16/22 16:21 Lab Results 07/16/22 07/16/22 07/16/22 Range/Units 16:21 16:21 16:54 WBC 4.14 L (4.8-10.8) K/ul RBC 3.04 L (4.63-6.08) M/uL Hgb 9.1 L (14.0-18.0) g/dl Hct 28.8 L (40.1-51.0) % MCV 94.7 (80.0-100.0) fL MCH 29.9 (25.0-34.0) pg MCHC 31.6 L (32.0-36.0) g/dL RDW Std Deviation 54.5 H (36.4-46.3) fL RDW Coeff of Casandra 15.9 H (11.5-14.5) % Plt Count 114 L (130-400) K/uL MPV 10.6 (9.4-12.4) fL Immature Gran % (Auto) 0.5 % Neut % (Auto) 64.8 % Lymph % (Auto) 23.4 % [place] % (Auto) 9.4 % Eos % (Auto) 1.4 % Baso % (Auto) 0.5 % Neut # (Auto) 2.68 (1.4-6.5) K/uL Lymph # (Auto) 0.97 L (1.2-3.4) K/uL [place] # (Auto) 0.39 (0.24-0.82) K/uL Eos # (Auto) 0.06 (0-0.50) K/uL Baso # (Auto) 0.02 (0-0.2) K/uL Immature Gran # (Auto) 0.02 (0.00-0.02) K/uL Sodium 139 (136-145) mmol/L Potassium 3.8 (3.5-5.1) mmol/L Chloride 92 L (98-107) mmol/L Carbon Dioxide 37 H (21-32) mmol/L Anion Gap 10 (3-11) BUN 24 H (6-23) mg/dl Creatinine 3.75 H (0.6-1.4) mg/dl Est Cr Clr Drug Dosing 15.4 ml/min Est GFR ( Amer) 15.7 ml/min Est GFR (Non-Af Amer) 13.5 ml/min BUN/Creatinine Ratio 6.4 L (10-20) Glucose 247 H (70-99(Fasting)) mg/dl Calcium 8.8 (8.5-10.1) mg/dl Total Bilirubin 0.4 (0.2-1.0) mg/dl AST 14 (13-39) U/L ALT 9 (7-52) U/L Alkaline Phosphatase 67 (34-104) U/L Troponin I High Sens 20.8 H (0-20) pg/ml Total Protein 7.0 (6.0-8.3) gm/dl Albumin 4.0 (3.4-5.0) gm/dl Globulin 3.0 (2.5-4.0) gm/dl Albumin/Globulin Ratio 1.3 (0.9-2) Imaging Data Radiologist's Impression: Chest X-Ray 07/16/22 17:14 XR chest 1V portable HISTORY: 87 years-old Male lightheaded COMPARISON: Chest radiograph 12/19/2021 TECHNIQUE: Portable AP view of the chest FINDINGS: Cardiac silhouette is enlarged. Chronic interstitial coarsening with mild right hemidiaphragmatic elevation. Atherosclerosis of the aorta. No pneumothorax, pleural effusion or overt pulmonary edema. Mild linear subsegmental atelectasis versus scarring of the left lung base. Degenerative changes of the shoulders and spine. IMPRESSION: Cardiomegaly without acute process. ACT 112: Negative or not required by law. The above report was generated using voice recognition software. It may contain grammatical, syntax or spelling errors. Electronically signed by: Otto Vazquez M.D. 07/16/2022 6:15 PM ECG Data Attestation: I personally reviewed and interpreted this ECG as follows: Additional Comments: Twelve-lead EKG: Per my interpretation shows A. fib at a rate of 84. No ST elevation. No PVCs. Normal QTC. MDM Narrative 87-year-old male presents with a chief complaint of lightheadedness as well as tachycardia during dialysis. The patient appears to have had A. fib with RVR. The monitor on arrival showed A. fib with RVR at a rate of 140. By the time the nurses got the twelve-lead EKG, it showed A. fib with a controlled ventricular r esponse at around 80. The patient's CBC and chemistry panel was unremarkable. Troponin is mildly elevated at 20. Because of this and no known clear history of A. fib, the patient will be seen by the hospitalist for further evaluation and care. Impression & Plan Atrial fibrillation, new onset, Atrial fibrillation with RVR, Elevated troponin Discharge Plan Visit Data Chief Complaint: Dizziness Stated Complaint: DIZZINESS ED Provider: Sherwin Gilliland Discharge Problem: Atrial fibrillation, new onset, Atrial fibrillation with RVR, Elevated troponin Patient Disposition: Being Evaluated by Hospitalist Forms Stand Alone Forms: My [facility] Prescriptions Prescriptions: No Action lorazepam 0.5 mg tablet 0.5 mg PO Q12H PRN (Reason: anxiety) Qty: 60 2RF Rx Instructions: This is a re-send of Rx to clarify dosing on earlier Rx. pravastatin 40 mg tablet 40 mg PO QPM Qty: 90 3RF insulin glargine [Lantus Solostar U-100 Insulin] 100 unit/mL (3 mL) insulin pen 27 unit SC DAILY Qty: 30 1RF folic acid 1 mg tablet 1 mg PO QAM Qty: 90 3RF ProRenal 8 mg iron-800 mcg-1,000 unit tablet 1 tab PO QAM calcium acetate(phosphat bind) 667 mg capsule 2,001 mg PO TIDM Label Comments: 1,334 mg PO 3 times a day with meals; with snacks take 2 capsules metoprolol tartrate 25 mg tablet See Rx Instructions .ROUTE .COMPLEX Qty: 150 11RF Rx Instructions: Take 2 and 1/2 tablets by mouth every 12 hours. Colace Clear 50 mg capsule 50 mg PO DAILY PRN (Reason: Constipation) Referrals Referrals: Noel Raymundo MD [Primary Care Provider] -
[2022-07-16] MEDS ORDERED: METOPROLOL TARTRATE 25 MG TAB PO STA (20:05)
--- NOTE | 2022-07-16 20:18 | History & Physical Report ---
Date of Service July 16, 2022 Assessment & Plan (1) Paroxysmal atrial tachycardia: Plan: -Admit to med tele -Patient's history and currently ECG are suggestive of initial orthostatic hypotension which potentially exacerbated his paroxysmal atrial tachycardia, patient's initial ECG at the time of arrival in the ED was noting possible afib, but there was a large amount of artifact. -Currently afebrile, hypertensive, and stable on RA -Patient has not had his PM dose of metoprolol tartate, will give dose now and continue to monitor -Initial high sensitivity troponin was noted to be 20.8, would expect this to be significantly elevated if any cardiac damage and his hx of dialysis, will repeat another troponin now -No mag level obtained in the ED, will obtain one now -Monitor on tele and pulse oximetry -If patient is stable in the am on home metoprolol dose can likely be discharged, if not improving would recommend cardiology consult -AM CBC and BMP (2) CAD (coronary artery disease): Plan: -Patient is no longer on anticoagulation or antiplatelet therapy as he is a significant bleeding risk with his recurrent GI bleeds as well as from radiation proctitis -Continue to treat medically with metoprolol (3) COPD (chronic obstructive pulmonary disease): Plan: -Stable on RA, no current home meds -Monitor for now (4) Acute diastolic (congestive) heart failure: Plan: -LVEF was noted to be 60-65% as of 12/2021 -Appears Euvolemic on exam (5) Hypertension: Plan: -Currently hypertensive at 197/78, asymptomatic -Patient has BL upper extremity fistulas so BP may be inaccurate as it has been obtained on the left forearm -Will continue home metoprolol for now and monitor his response -Continue to monitor on tele (6) Chronic venous insufficiency: Plan: -continue BL SOCORRO stockings (7) Anxiety: Plan: -continue prn ativan (8) T2DM (type 2 diabetes mellitus): Plan: -Continue home lantus at 27 units daily -Carb ratio of 16 (9) Dyslipidemia: Plan: -Continue home statin (10) Radiation proctitis: Plan: -Hx of Prostate Cancer s/p Prostatectomy and XRT -Long hx of significant GI bleeds, not currenly on anticoagulation or antiplatelet therapy Plan The patient was discussed with Dr. 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 At the time of the exam the patient was sitting comfortably in bed in no acute distress. He states that he was in his normal state of health this morning and went to dialysis as scheduled (MWF). He had a full dialysis session without complication. He states that they took his blood pressure after dialysis like usual and stood him up. When he stood he felt light headed and was tachycardic (in the 140's), he noted palpitations, the dialysis center found him to be hypotensive and administered a 500 mL NSS bolus and sent him to the ED to be evaluated. Per the ED staff, the patient was found to be afebrile, hemodynamically stable, stable on RA and had a HR in the 80's. Labs were remarkable for a stable Hgb, bicarb of 37, glucose of 247, and high sensitivity troponin of 20.8. Chest xray showed stable cardiomegaly without acute findings. In the ED the patient was not given any medications prior to admission. During my exam the patient was noted to be tachycardic in the 120's, hypertensive at 197/78, and stable on RA. He denied symptoms at this time. I obtained a STAT ECG at that time which showed "Accelerated Junctional rhythm Nonspecific ST abnormality Abnormal ECG When compared with ECG of 16-JUL-2022 15:58, (unconfirmed) Junctional rhythm has replaced Atrial fibrillation Vent. rate has increased BY 44 BPM". Allergies Allergy/AdvReac Type Severity Reaction Status Date / Time clarithromycin AdvReac Intermediate confusion Verified 06/14/22 09:10 fish oil AdvReac Intermediate hx of Verified 06/14/22 09:10 hemorrhage in past Sulfa (Sulfonamide AdvReac Intermediate severe Verified 06/14/22 09:10 Antibiotics) agitation/delirium Home Medications Medication Instructions Recorded Confirmed Type vit B complx, C-iron 8 mg-folic 1 tab PO QAM 03/05/19 06/14/22 History acid 800 mcg-D3 1,000 unit-zinc tablet (ProRenal) calcium acetate(phosphat bind) 667 2,001 mg PO TIDM 05/03/21 06/14/22 History mg capsule docusate sodium 50 mg capsule 50 mg PO DAILY PRN Constipation 05/03/21 06/14/22 History (Colace Clear) metoprolol tartrate 25 mg tablet See Rx Instructions .Route 01/09/22 06/14/22 Rx .COMPLEX #150 tabs lorazepam 0.5 mg tablet 0.5 mg PO Q12H PRN anxiety #60 tabs 01/23/22 06/14/22 Rx pravastatin 40 mg tablet 40 mg PO QPM #90 tabs 03/07/22 06/14/22 Rx insulin glargine 100 unit/mL (3 27 unit (0.27 mL) SC DAILY #30 mL 06/15/22 Rx mL) subcutaneous pen (Lantus Solostar U-100 Insulin) folic acid 1 mg tablet 1 mg PO QAM #90 tabs 06/19/22 Rx Past Med/Surg History Medical History Acute dyspnea Acute respiratory failure with hypoxia Anemia Arteriovenous fistula thrombosis AV fistula AV fistula Breathlessness Chest pain 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 S/P EGD WITH CAUTERIZATION 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 COVID-19 Diabetic neuropathy Dialysis AV fistula malfunction Dyslipidemia Emphysema lung suggested per CXR End-stage renal disease on hemodialysis DIALYSIS [facility] VIA PERMACATH Exertional dyspnea GAVE (gastric antral vascular ectasia) Gout Hearing deficit LEFT History of blood transfusion 2/2 GIB felt r/t radiation therapy s/p total of 6 units PRBC's since 10/2018 Nontoxic multinodular goiter Osteoarthritis Phimosis of penis Prostate cancer S/P SURGERY, XRT Pulmonary nodules UNDER SURVEILLANCE T2DM (type 2 diabetes mellitus) Thrombocytopenia Transient ischemic attack (TIA) (2015) 2015--no deficits, no neurologist Surgical History Amputation of left little finger H/O prostatectomy History of arthroscopy LEFT KNEE History of bowel resection BOWEL LACERATION DURING ATTEMPTING POLYPECTOMY History of cardiac cath X3 = NO STENTS History of cataract surgery RIGHT/LEFT History of colonoscopy History of esophagogastroduodenoscopy (EGD) + CAUTERIZATION (2/2 GIB) History of surgery fistulogram with Dr. Hanna through Right AV fistula 08/17/19 History of tooth extraction S/P arteriovenous (AV) fistula creation LEFT Right side recently ballooned and stented in [facility] S/P arteriovenous (AV) fistula creation right 05/[address] Hanna S/P dialysis catheter insertion Permcath + attempted thrombectomy: 04/2019: MAC sedation at [facility] Family History Father Family history of diabetes mellitus Hypertension Brother Prostate cancer Mother Heart disease Hypertension Denies family history of Ovarian cancer Breast cancer Lung cancer Colorectal cancer Social History Smoking Status: Smoker, status unknown Second Hand Exposure: Yes (parents smoked/ smoked); Hx Alcohol Use: No Hx Substance Use: No Preferred Language: Persian Communication Ability: Effective Visual Impairment: No Limitations Hearing Ability: Normal Office Technician Required: No Beliefs That Will Affect Care: None marital status: / Current Living Situation: Family Current Living Situation Comment: Lives with Grandson current occupational status: retired How many Children do You have: 1 Feels Safe at Home: Yes Childhood Exposure to Second-Hand Smoke: Yes Diet Comment: regular caffeine: Yes (coffee, once in a while) during the past year weight has: remained stable Dental Care, Regularly: Yes Physical Activity Frequency: Does not Exercise Seatbelt Use: always Sunscreen Use: No Assistive Devices: Glasses Review of Systems Review of Systems: Denies current fever, chills, headache, changes in vision, hearing, taste, and smell, chest pain, SOB, cough, abdominal pain, nausea, vomiting, diarrhea, hematemesis, melena, dysuria, hematuria, and recent falls. All systems have been reviewed and are otherwise negative. Physical Exam Physical Exam: Physical Exam: General: In no acute distress, stated age, chronically ill-appearing HEENT: Normocephalic, atraumatic, no scleral icterus, pupils around round, symmetrical, and reactive to light, moist mucus membranes, trachea midline, no thyromegaly Chest/Pulm: No respiratory distress, symmetrical chest expansion, clear breath sounds throughout Cardiac: tachycardic rate, regular rhythm, no murmurs noted Abdomen: Negative for ascites and bruising, normoactive bowel sounds, soft, non-tender to palpation throughout Musculoskeletal: Symmetrical and without signs of acute trauma, upper and lower extremities with full ROM, no atrophy, spasticity, or flaccidity Extremities: patient currently with BL SOCORRO stockings in place, signs of chronic venous insufficiency beneath Skin: Warm, dry, no rashes , lesions, or scars noted Neuro: Alert and oriented to person, place, month, year, and president, no focal defects, CN II-XII tested and intact, finger to nose test negative, no tremors noted Psych: No acute distress, calm and cooperative during the exam Results & Data Results & Data ([facility]) Vital Signs (Past 12 Hours) Vital Signs Pulse Pulse Resp BP BP Pulse Ox O2 Del Method 07/16/22 19:20 90 20 197/78 H 97 Room Air 07/16/22 16:01 96 Room Air 07/16/22 16:01 110 H 16 210/100 H 96 Room Air 07/16/22 16:00 110 H 18 210/96 H 96 Room Air Laboratory Results Abnormal lab results 07/16/22 07/16/22 07/16/22 Range/Units 16:21 16:21 16:54 WBC 4.14 L (4.8-10.8) K/ul RBC 3.04 L (4.63-6.08) M/uL Hgb 9.1 L (14.0-18.0) g/dl Hct 28.8 L (40.1-51.0) % MCHC 31.6 L (32.0-36.0) g/dL RDW Std Deviation 54.5 H (36.4-46.3) fL RDW Coeff of Casandra 15.9 H (11.5-14.5) % Plt Count 114 L (130-400) K/uL Lymph # (Auto) 0.97 L (1.2-3.4) K/uL Chloride 92 L (98-107) mmol/L Carbon Dioxide 37 H (21-32) mmol/L BUN 24 H (6-23) mg/dl Creatinine 3.75 H (0.6-1.4) mg/dl BUN/Creatinine Ratio 6.4 L (10-20) Glucose 247 H (70-99(Fasting)) mg/dl Troponin I High Sens 20.8 H (0-20) pg/ml Diagnostic Findings Chest X-Ray 07/16/22 17:14 XR chest 1V portable HISTORY: 87 years-old Male lightheaded COMPARISON: Chest radiograph 12/19/2021 TECHNIQUE: Portable AP view of the chest FINDINGS: Cardiac silhouette is enlarged. Chronic interstitial coarsening with mild right hemidiaphragmatic elevation. Atherosclerosis of the aorta. No pneumothorax, pleural effusion or overt pulmonary edema. Mild linear subsegmental atelectasis versus scarring of the left lung base. Degenerative changes of the shoulders and spine. IMPRESSION: Cardiomegaly without acute process. ACT 112: Negative or not required by law. The above report was generated using voice recognition software. It may contain grammatical, syntax or spelling errors. Electronically signed by: Otto Vazquez M.D. 07/16/2022 6:15 PM ECG Additional Comments: Accelerated Junctional rhythm Nonspecific ST abnormality Abnormal ECG When compared with ECG of 16-JUL-2022 15:58, (unconfirmed) Junctional rhythm has replaced Atrial fibrillation Vent. rate has increased BY 44 BPM Code Status & VTE Plan Code Status DNR/DNI VTE Prophylaxis Plan VTE Prophylaxis will be ordered: Yes Supervising Physician Co-Signing Physician Notes Patient seen and examined, chart reviewed, case discussed with CARIE Bryant and I agree with the assessment and plan as above. In brief, patient is an 87yo male with history of ESRD on HD, DM, prior prostate CA s/p radiation, prior GI bleeding presenting with hypotension reported at HD, tachycardia with AF rate of 140. Rate presently 115 No respiratory distress, SOB or palpitations at present On exam patient is resting comfortably, NAD Skin - intact, no rashes HEENT - NC/AT, PERRL, MMM Heart - +S1/S2, regular, tachycardic Lungs - CTA Abd- +BS, soft, NT/ND Ext - warm, well perfused Labs and images reviewed Assessment/Plan -Rate control with Metoprolol PO and IV as needed. Patient with history of paroxysmal atrial tachycardia -No anticoagulation due to history of recurrent GI bleeding secondary to radiation proctitis. No ASA - patient has been seen by Cardiology in the past -Remainder as above PG Care Time/CCT Total # of Minutes Spent Total Time Spent with Patient: Total time spent is greater than 50% in coordination of care (as documented) at patient's floor/unit and/or counseling patient: [place] [address] Initial Inpt Care Lvl 2 Patient Type Established Medical Decision Making Moderate Complexity Diagnoses Paroxysmal atrial tachycardia I47.1 CAD (coronary artery disease) I25.10 COPD (chronic obstructive pulmonary disease) J44.9 Acute diastolic (congestive) heart failure I50.31 Hypertension I10 Chronic venous insufficiency I87.2 Anxiety F41.9 T2DM (type 2 diabetes mellitus) E11.9 Dyslipidemia E78.5 Radiation proctitis K62.7
[2022-07-16] MEDS ORDERED: CARBOHYDRATES FOR HYPOGLYCEMIA PO PRN (22:20)
[2022-07-16] MEDS ORDERED: GLUCAGON FOR INJ 1 MG VIAL SQ PRN (22:20)
[2022-07-16] MEDS ORDERED: PRAVASTATIN SOD 40 MG TAB PO SCH (22:20)
[2022-07-16] MEDS ORDERED: LORazepam 0.5 MG TAB PO PRN (22:20)
[2022-07-16] MEDS ORDERED: GLUCOSE 40% GEL 15 GM TUBE PO PRN (22:20)
[2022-07-16] MEDS ORDERED: DEXTROSE 50% 50 ML SYRINGE IV PRN (22:20)
[2022-07-16] MEDS ORDERED: METOPROLOL TARTRATE 1 MG/ML VIAL IV PRN (22:20)
[2022-07-16] MEDS ORDERED: GLUCOSE 10 TAB/TUBE PO PRN (22:20)
[2022-07-16] MEDS ORDERED: ACETAMINOPHEN 325 MG TAB PO PRN (22:20)
[2022-07-16] MEDS: INSULIN ASPART PER UNIT SC SCH (23:12)
[2022-07-16] MEDS: LANTUS PER UNIT CHARGE SC SCH (23:13)
[2022-07-17] MEDS ORDERED: hydrALAZINE HCL 20 MG/ML VIAL IV PRN (00:50)
[2022-07-17] MEDS: CALCIUM ACETATE 667 MG CAP/TAB PO SCH ×3 (08:27→16:54)
[2022-07-17] MEDS: LANTUS PER UNIT CHARGE SC SCH (08:28)
[2022-07-17] MEDS: INSULIN ASPART PER UNIT SC SCH ×3 (08:29→17:30)
[2022-07-17 08:36] LABS: Hematocrit (blood only) 27.1 % (40.1-51.0); Hemoglobin 8.6 g/dl (14.0-18.0); Mean Corpuscular Hemoglobin 29.9 pg (25.0-34.0); Mean Corpuscular Hgb Conc 31.7 g/dL (32.0-36.0); Mean Corpuscular Volume 94.1 fL (80.0-100.0); Mean Platelet Volume 10.7 fL (9.4-12.4); Platelet Count 103 K/uL (130-400); RDW Standard Deviation 55.6 fL (36.4-46.3); Red Blood Count 2.88 M/uL (4.63-6.08); White Blood Count 5.02 K/ul (4.8-10.8)
--- NOTE | 2022-07-17 08:43 | Electrocardiogram Report ---
Test Reason : Blood Pressure : / mmHG Vent. Rate : 071 BPM Atrial Rate : 071 BPM P-R Int : 000 ms QRS Dur : 082 ms QT Int : 390 ms P-R-T Axes : 000 045 065 degrees QTc Int : 423 ms Sinus rhythm with 1st degree AV block and PACs Abnormal ECG When compared with ECG of 16-DEC-2021 19:22, Rhythm is now sinus Confirmed by Hayder Donald ([id number]) on 07/17/2022 8:42:45 AM Referred By: REFERRED SELF Confirmed By:Garo Donald
--- NOTE | 2022-07-17 08:47 | Electrocardiogram Report ---
Test Reason : Blood Pressure : / mmHG Vent. Rate : 115 BPM Atrial Rate : 060 BPM P-R Int : 000 ms QRS Dur : 088 ms QT Int : 336 ms P-R-T Axes : 000 042 071 degrees QTc Int : 464 ms Supraventricular tachycardia Nonspecific ST abnormality Abnormal ECG When compared with ECG of 16-JUL-2022 15:58, (unconfirmed) Vent. rate has increased BY 44 BPM Confirmed by Hayder Donald ([id number]) on 07/17/2022 8:46:32 AM Referred By: REFERRED SELF Confirmed By:Garo Donald
[2022-07-17] MEDS ORDERED: METOPROLOL TARTRATE 25 MG TAB PO SCH (09:00)
[2022-07-17] MEDS ORDERED: FOLIC ACID 1 MG TAB PO SCH (09:00)
[2022-07-17] MEDS ORDERED: NEPHROCAPS PO SCH (09:00)
[2022-07-17 10:45] LABS: Calcium 8.3 mg/dl (8.5-10.1); Creatinine Clr Calc Pharmacy 10.7 ml/min; Est GFR (African American) 10.4 ml/min; Potassium 4.6 mmol/L (3.5-5.1)
--- NOTE | 2022-07-17 11:39 | Electrocardiogram Report ---
Test Reason : Blood Pressure : / mmHG Vent. Rate : 063 BPM Atrial Rate : 063 BPM P-R Int : 310 ms QRS Dur : 078 ms QT Int : 422 ms P-R-T Axes : -10 045 056 degrees QTc Int : 431 ms Sinus rhythm with 1st degree A-V block Otherwise normal ECG When compared with ECG of 16-JUL-2022 20:01, [place] interval has increased Vent. rate has decreased BY [address] no longer depressed in Inferior leads Confirmed by Hayder Donald ([id number]) on 07/17/2022 11:39:26 AM Referred By: REFERRED SELF Confirmed By:Garo Donald
--- NOTE | 2022-07-17 17:57 | Discharge Summary ---
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 At the time of the exam the patient was sitting comfortably in bed in no acute distress. He states that he was in his normal state of health this morning and went to dialysis as scheduled (MWF). He had a full dialysis session without complication. He states that they took his blood pressure after dialysis like usual and stood him up. When he stood he felt light headed and was tachycardic (in the 140's), he noted palpitations, the dialysis center found him to be hypotensive and administered a 500 mL NSS bolus and sent him to the ED to be evaluated. Per the ED staff, the patient was found to be afebrile, hemodynamically stable, stable on RA and had a HR in the 80's. Labs were remarkable for a stable Hgb, bicarb of 37, glucose of 247, and high sensitivity troponin of 20.8. Chest xray showed stable cardiomegaly without acute findings. In the ED the patient was not given any medications prior to admission. During my exam the patient was noted to be tachycardic in the 120's, hypertensive at 197/78, and stable on RA. He denied symptoms at this time. I obtained a STAT ECG at that time which showed "Accelerated Junctional rhythm Nonspecific ST abnormality Abnormal ECG When compared with ECG of 16-JUL-2022 15:58, (unconfirmed) Junctional rhythm has replaced Atrial fibrillation Vent. rate has increased BY 44 BPM". Admission Exam Per Admitting Provider General:In no acute distress, stated age, chronically ill-appearing HEENT:Normocephalic, atraumatic, no scleral icterus, pupils around round, symmetrical, and reactive to light, moist mucus membranes, trachea midline, no thyromegaly Chest/Pulm:No respiratory distress, symmetrical chest expansion, clear breath sounds throughout Cardiac:tachycardic rate, regular rhythm, no murmurs noted Abdomen:Negative for ascites and bruising, normoactive bowel sounds, soft, non-tender to palpation throughout Musculoskeletal:Symmetrical and without signs of acute trauma, upper and lower extremities with full ROM, no atrophy, spasticity, or flaccidity Extremities:patient currently with BL SOCORRO stockings in place, signs of chronic venous insufficiency beneath Skin:Warm, dry, no rashes , lesions, or scars noted Neuro:Alert and oriented to person, place, month, year, and president, no focal defects, CN II-XII tested and intact, finger to nose test negative, no tremors noted Psych:No acute distress, calm and cooperative during the exam Principal Diagnosis Tachycardia Discharge Exam General: Well-appearing, alert, interactive, and in no acute distress. HEENT: Normocephalic, atraumatic. EOM intact. Good conjugate gaze. Nares patent. Moist mucosal membranes. Neck: Supple. No lymphadenopathy. Normal ROM. CV: Regular rate and rhythm. Normal S1 and S2. No murmurs gallops or rubs. Respiratory: Normal respiratory effort. Lungs clear to auscultation bilaterally. No crackles, rhonchi, or wheezes. Abdomen: Soft, nondistended abdomen. No bruits heard on auscultation. No tenderness to deep palpation. Extremities: Capillary refill <2 sec. 2+ dp equal bilaterally. No pedal edema. Neuro: Alert and oriented x3. Skin: Clean, dry, and intact. No rashes, bruises, or erythema. Discharge Data Allergies Allergy/AdvReac Type Severity Reaction Status Date / Time clarithromycin AdvReac Intermediate confusion Verified 06/14/22 09:10 fish oil AdvReac Intermediate hx of Verified 06/14/22 09:10 hemorrhage in past Sulfa (Sulfonamide AdvReac Intermediate severe Verified 06/14/22 09:10 Antibiotics) agitation/delirium Consultations 07/16/22 19:08 ED Decision to Admit Stat Hospital Course (1) Paroxysmal atrial tachycardia: -Admit to med tele -Patient's history and currently ECG are suggestive of initial orthostatic hypotension which potentially exacerbated his paroxysmal atrial tachycardia, patient's initial ECG at the time of arrival in the ED was noting possible afib, but there was a large amount of artifact. -Currently afebrile, hypertensive, and stable on RA -Patient has not had his PM dose of metoprolol tartate, will give dose now and continue to monitor -Initial high sensitivity troponin was noted to be 20.8, would expect this to be significantly elevated if any cardiac damage and his hx of dialysis, will repeat another troponin now -No mag level obtained in the ED, will obtain one now -Monitor on tele and pulse oximetry -If patient is stable in the am on home metoprolol dose can likely be discharged, if not improving would recommend cardiology consult (2) CAD (coronary artery disease): -Patient is no longer on anticoagulation or antiplatelet therapy as he is a significant bleeding risk with his recurrent GI bleeds as well as from radiation proctitis -Continue to treat medically with metoprolol (3) COPD (chronic obstructive pulmonary disease): -Stable on RA, no current home meds -Monitor for now (4) Acute diastolic (congestive) heart failure: -LVEF was noted to be 60-65% as of 12/2021 -Appears Euvolemic on exam (5) Hypertension: -Currently hypertensive at 197/78, asymptomatic -Patient has BL upper extremity fistulas so BP may be inaccurate as it has been obtained on the left forearm -Will continue home metoprolol for now and monitor his response -Continue to monitor on tele (6) Chronic venous insufficiency: -continue BL SOC[place]RO stockings (7) Anxiety: -continue prn ativan (8) T2DM (type 2 diabetes mellitus): -Continue home lantus at 27 units daily -Carb ratio of 16 (9) Dyslipidemia: -Continue home statin (10) Radiation proctitis: -Hx of Prostate Cancer s/p Prostatectomy and XRT -Long hx of significant GI bleeds, not currenly on anticoagulation or ant iplatelet therapy Plan The patient was discussed with Dr. Cruz at the time of the admission Total Time Total Time Spent Total Time Spent (In Minutes): 10 Discharge Plan Discharge Items Patient Disposition: Home - Self-Care Reason For Visit: TACHYCARDIA, HYPOTENSION Discharge Diagnosis: Tachycardia Activity: Per Instructions section Non-emergency contact: Primary Care Provider and Glaze Wiper Call non-emergency contact if: you have any medication questions and your symptoms worsen Follow-up/Referrals: Noel Raymundo MD [Primary Care Provider] - 07/25/22 11:45 am (Appointment with Sophia Marti PA-C) Diet: Regular Addtl Attending Provider Instructions: You were admitted to the hospital for tachycardia and hypotension, or low blood pressure. You were treated with IV fluids and your home medicines. A discharge summary will be sent to your primary care physician to ensure continuity of care. Please bring this discharge summary with you to your next office appointment so that your provider can review it at that time. Follow-up appointments: * Make a follow-up appointment with your PCP within the next week. It is very important that you follow up with them shortly after discharge from the [facility]. * Keep all your other follow-up appointments as already scheduled. If you cannot make an appointment, notify your provider. Medications: Your medication list has been reviewed and reconciled upon discharge to ensure accuracy and continuity of care. An updated list of all your medications is included with your hospital discharge paperwork. Please review this list closely, and make note of any changes. * We made no changes to your medicines. You may continue to take them as directed unless otherwise instructed by your doctor. Take your medications as instructed; do not skip a dose of your medicines. Make sure all of your doctors know every medicine you are taking (including ayew-gur-gdpisez medicines, vitamins, and supplements). Call your primary care provider before taking any new medicines (including ihup-mqx-zuvwleu medicines, vitamins, and supplements), because some of these may interact with your current medications, or may make your symptoms worse. Tell your primary care provider if you cannot afford your medications. CONTACT YOUR PRIMARY CARE PROVIDER if you experience any of the following: * Sudden lightheadedness when standing up * Any loss of consciousness or unexplained falls * Difficulty following your treatment plan, or difficulty taking medications CALL 911 OR GO TO THE EMERGENCY DEPARTMENT if you experience any of the following: * Sudden, severe abdominal pain or nausea/vomiting * Severe chest pain, or chest pain that radiates (moves) to your jaw or arm * Sudden, severe shortness of breath or difficulty breathing Thank you for allowing us to participate in your care. Pending Studies at Discharge: No Stand-Alone Forms: [facility], Smoking Cessation Medications and DC Order Prescriptions: Continued lorazepam 0.5 mg tablet 0.5 mg PO Q12H PRN (Reason: anxiety) Qty: 60 2RF Rx Instructions: This is a re-send of Rx to clarify dosing on earlier Rx. pravastatin 40 mg tablet 40 mg PO QPM Qty: 90 3RF insulin glargine [Lantus Solostar U-100 Insulin] 100 unit/mL (3 mL) insulin pen 27 unit SC DAILY Qty: 30 1RF folic acid 1 mg tablet 1 mg PO QAM Qty: 90 3RF ProRenal 8 mg iron-800 mcg-1,000 unit tablet 1 tab PO QAM calcium acetate(phosphat bind) 667 mg capsule 2,001 mg PO TIDM Label Comments: 1,334 mg PO 3 times a day with meals; with snacks take 2 capsules metoprolol tartrate 25 mg tablet See Rx Instructions .ROUTE .COMPLEX Qty: 150 11RF Rx Instructions: Take 2 and 1/2 tablets by mouth every 12 hours. Colace Clear 50 mg capsule 50 mg PO DAILY PRN (Reason: Constipation) Discharge Orders: Discharge Order (Routine); Ordered 07/17/22 Ordered By: Niraj Spencer/Other Patient Handouts: Hypotension Dc Admission Data Admit Date/Time: 07/16/22 19:37 Attending Provider: Franco Peres Admit Provider: Tenisha Cruz Primary Care Provider: Noel Raymundo Other Providers: Tenisha Cruz Other Interventions: Discharge Summary Assessment (RN) Last Done: 07/17/22 18:09 Supervising Physician Co-Signing Physician Notes I saw and examined patient and agree with assessment/plan as well as plan of discharge as documented by Dr. Chambers. Total amount of time I spent reviewing patient's chart, seeing patient, evaluating patient and performing an appropriate assessment/plan was 35 minutes. Resident Activity Tracking Resident Involvement: Resident Care Provided Care Provided: Adult Hospital Medicine
== END 2022-07-17 19:18 | disposition home or self-care (01) ==
LOC: ED 15:48 → 2N 15:48 → SUATTDRO 19:37 → 2N 21:30

== ENCOUNTER 2023-12-02 00:18 | Inpatient (IN) ==
[2023-12-02 01:41] LABS: Adenovirus PCR Not Detected (NotDetected); Bordetella parapertussis PCR Not Detected (NotDetected); Bordetella pertussis PCR Not Detected (NotDetected); Chlamydia pneumoniae PCR Not Detected (NotDetected); Coronavirus 229E PCR Not Detected (NotDetected); Coronavirus CoV-2 (COVID19)PCR Not Detected (NotDetected); Coronavirus HKU1 PCR Not Detected (NotDetected); Coronavirus NL63 PCR Not Detected (NotDetected); Coronavirus OC43PCR Not Detected (NotDetected); Human Metapneumovirus PCR Not Detected (NotDetected); Influenza A PCR Not Detected (NotDetected); Influenza B PCR Not Detected (NotDetected); Mycoplasma pneumoniae PCR Not Detected (NotDetected); Parainfluenza Virus 1 PCR Not Detected (NotDetected); Parainfluenza Virus 2 PCR Not Detected (NotDetected); Parainfluenza Virus 3 PCR Not Detected (NotDetected); Parainfluenza Virus 4 PCR Not Detected (NotDetected); Respiratory Syncytial VirusPCR Not Detected (NotDetected); Rhinovirus/Enterovirus PCR Not Detected (NotDetected)
[2023-12-02] MEDS: ALBUT/IPRATROP 3MG/0.5MG NEB 3 ML VIAL NEB STA (01:43)
--- NOTE | 2023-12-02 01:44 | Emergency Department Note ---
History of Present Illness General Chief complaint: Shortness of Breath/Dyspnea Stated complaint: SHORTNESS OF BREATH Time Seen by Provider: 12/02/23 01:30 History of Present Illness This 88-year-old male who receives dialysis Saturday presents ER complaining of cough and shortness of breath for the past week steadily getting worse. He now has some chest discomfort. Patient denies fever, chills, abdominal pain, vomiting, diarrhea. He does not make urine. He has not missed dialysis. Home Medications Medication Instructions Recorded Confirmed Type vit B complx, C-iron 8 mg-folic 1 tab PO QAM 03/05/19 07/09/23 History acid 800 mcg-D3 1,000 unit-zinc tablet (ProRenal) calcium acetate(phosphat bind) 667 2,001 mg PO TIDM 05/03/21 07/09/23 History mg capsule docusate sodium 50 mg capsule 50 mg PO DAILY PRN Constipation 05/03/21 07/09/23 History (Colace Clear) lorazepam 0.5 mg tablet 0.5 mg PO Q12H PRN anxiety #60 tabs 01/23/22 07/09/23 Rx blood sugar diagnostic (OneTouch 09/25/22 07/09/23 History Ultra Test strips) pravastatin 40 mg tablet 40 mg PO QPM #90 tabs 01/14/23 07/09/23 Rx amlodipine 5 mg tablet 5 mg PO 4XWK 02/18/23 07/09/23 History insulin aspar prt-insulin aspart 40 unit (0.4 mL) subcut BID #72 mL 03/05/23 07/09/23 Rx 100 unit/mL (70-30) subcutaneous soln (Novolog Mix 70-30 U-100 Insuln) flash glucose sensor (FreeStyle #6 ea 03/19/23 07/09/23 Rx Frederick 2 Sensor kit) pen needle, diabetic 32 gauge x #200 ea 06/19/23 07/09/23 Rx 5/32" (BD Ultra-Fine Tiffanie Pen Needle) metoprolol tartrate 50 mg tablet 50 mg PO BID #180 tabs 07/16/23 Rx folic acid 1 mg tablet See Rx Instructions .Route 08/01/23 Rx .COMPLEX #90 tabs nitroglycerin 0.4 mg sublingual 0.4 mg sublingual Q5M PRN 09/25/23 Rx tablet hypertensive emergency #25 tabs Allergies Allergy/AdvReac Type Severity Reaction Status Date / Time clarithromycin AdvReac Intermediate confusion Verified 07/09/23 14:21 fish oil AdvReac Intermediate hx of Verified 07/09/23 14:21 hemorrhage in past Sulfa (Sulfonamide AdvReac Intermediate severe Verified 07/09/23 14:21 Antibiotics) agitation/delirium Past Med/Surg History Medical History Elevated troponin Acute respiratory failure with hypoxia Weakness Hyperkalemia Pulmonary edema Acute respiratory failure Exertional dyspnea Chest pain Phimosis of penis AV fistula AV fistula Anxiety Breathlessness Right shoulder tendinitis Right shoulder pain T2DM (type 2 diabetes mellitus) Acute dyspnea Anemia COVID-19 COPD (chronic obstructive pulmonary disease) Dialysis AV fistula malfunction Emphysema lung suggested per CXR History of blood transfusion 2/2 GIB felt r/t radiation therapy s/p total of 6 units PRBC's since 10/2018 Arteriovenous fistula thrombosis Gout Osteoarthritis Hearing deficit LEFT Diabetic neuropathy Transient ischemic attack (TIA) (2014) 2014--no deficits, no neurologist Thrombocytopenia Pulmonary nodules UNDER SURVEILLANCE Prostate cancer S/P SURGERY, XRT 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 Hanna through Right AV fistula 08/17/19 S/P arteriovenous (AV) fistula creation right 05/[address] Hanna S/P dialysis catheter insertion Permcath + attempted thrombectomy: 04/2019: MAC sedation at [facility] History of esophagogastroduodenoscopy (EGD) + CAUTERIZATION (2/2 GIB) History of colonoscopy History of tooth extraction History of cataract surgery RIGHT/LEFT History of cardiac cath X3 = NO STENTS S/P arteriovenous (AV) fistula creation LEFT Right side recently ballooned and stented in [facility] Amputation of left little finger History of arthroscopy LEFT KNEE History of bowel resection BOWEL LACERATION DURING ATTEMPTING POLYPECTOMY H/O prostatectomy Family History Father Family history of diabetes mellitus Hypertension Brother Prostate cancer Mother Heart disease Hypertension Denies family history of Ovarian cancer Breast cancer Lung cancer Colorectal cancer Social History Smoking Status: Never smoker Second Hand Exposure: No; Do You Dip or Chew Tobacco: No; Hx Alcohol Use: No Hx Substance Use: No Preferred Language: Serbian Communication Ability: Effective Visual Impairment: No Limitations Hearing Ability: Normal 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 Beliefs That Will Affect Care: None marital status: / Current Living Situation: Family Current Living Situation Comment: Lives with Grandson current occupational status: retired How many Children do You have: 1 Feels Safe at Home: Yes Childhood Exposure to Second-Hand Smoke: Yes Diet: regular Diet Comment: regular caffeine: Yes (coffee, once in a while) during the past year weight has: remained stable Dental Care, Regularly: Yes Physical Activity Frequency: Does not Exercise Seatbelt Use: always Sunscreen Use: No Assistive Devices: Walker Review of Systems A total of 10 systems reviewed and were otherwise negative Physical Exam Vital Signs Vital Signs - 24 hr 12/02/23 00:20 12/02/23 00:31 12/02/23 00:31 Temperature 36.7 C Temperature Source Oral Pulse Rate 77 Pulse Rate [Finger] 73 Respiratory Rate 24 25 H Blood Pressure 162/75 H Blood Pressure [Right Calf] 170/110 H Blood Pressure Mean 104 Blood Pressure Mean [Right Calf] 130 Pulse Oximetry 95 90 Oxygen Delivery Method Nasal Cannula Room Air Nasal Cannula Oxygen Flow Rate 2 2 Sepsis Recent Fever Within 48 Hours No Sepsis New/Unexplained Change in Mental Status No Sepsis Action Taken by Nursing No Action Required 12/02/23 00:36 12/02/23 00:40 Temperature Temperature Source Pulse Rate Pulse Rate [Finger] Respiratory Rate Blood Pressure Blood Pressure [Right Calf] Blood Pressure Mean Blood Pressure Mean [Right Calf] Pulse Oximetry Oxygen Delivery Method Nasal Cannula Nasal Cannula Oxygen Flow Rate 2 2 Sepsis Recent Fever Within 48 Hours Sepsis New/Unexplained Change in Mental Status Sepsis Action Taken by Nursing VITALS: Vitals are noted on the nurse's note and reviewed by myself. Vital signs hypoxic in room air and improved with nasal cannula GENERAL: Pleasant gentleman coughing, in no acute distress, nondiaphoretic, well-developed well-nourished. SKIN: Capillary reflex less than 2 seconds. HEENT: Normocephalic. PERRLA. EOMI. Nares patent. Mucous membranes moist. Neck is supple without nuchal rigidity. HEART: Regular rate and rhythm LUNGS: Bibasilar rales. No retractions or accessory muscle use. ABDOMEN: Positive bowel sounds x 4. Normal tympanic percussion. Soft, nontender, without masses or organomegaly. Pardo sign negative. No guarding or rebound tenderness. no CVA tenderness MUSCULOSKELETAL: No gross musculoskeletal defects. NEURO: Patient was alert and oriented to person place and time. No focal neurological deficits. Course Administered Medications Discontinued Medications Albuterol (Albut/Ipratrop 3mg/0.5mg Neb 3 Ml Vial) 3 ml NEB NOW STA; Protocol Stop: 12/02/23 01:37 Last Admin: 12/02/23 01:43 Dose: 3 ml Documented By: MARGARET Piperacillin Sod/Tazobactam Sod (Zosyn) 4.5 gm in 100 mls @ 200 mls/hr IV NOW ONE Stop: 12/02/23 02:08 Last Admin: 12/02/23 02:38 Dose: 200 mls/hr Documented By: MARGARET Medical Decision Making Medical Records Attestation: I reviewed the patient's medical records. Home Medications Current Medication List: was personally reviewed by me Laboratory Data Attestation: I reviewed the patient's lab results. 12/02/23 01:55 12/02/23 01:55 Lab Results 12/02/23 12/02/23 Range/Units 00:41 01:55 WBC 5.72 (4.8-10.8) K/ul RBC 3.26 L (4.70-6.10) M/uL Hgb 9.9 L (14.0-18.0) g/dl Hct 32.2 L (42.0-52.0) % MCV 98.8 (80.0-100.0) fL MCH 30.4 (25.0-34.0) pg MCHC 30.7 L (32.0-36.0) g/dL RDW Std Deviation 58.2 H (36.4-46.3) fL RDW Coeff of Casandra 15.9 H (11.5-14.5) % Plt Count 93 L (130-400) K/uL MPV 10.6 (9.4-12.4) fL Immature Gran % (Auto) 0.5 % Neut % (Auto) 71.3 % Lymph % (Auto) 18.4 % [place] % (Auto) 7.2 % Eos % (Auto) 2.3 % Baso % (Auto) 0.3 % Neut # (Auto) 4.08 (1.40-6.50) K/uL Lymph # (Auto) 1.05 L (1.20-3.40) K/uL [place] # (Auto) 0.41 (0.11-0.59) K/uL Eos # (Auto) 0.13 (0.00-0.50) K/uL Baso # (Auto) 0.02 (0.00-0.20) K/uL Immature Gran # (Auto) 0.03 (0.01-0.20) K/uL Platelet Estimate Decreased L (Normal) Sodium 135 L (136-145) mmol/L Potassium 3.8 (3.5-5.1) mmol/L Chloride 94 L (98-107) mmol/L Carbon Dioxide 31 (21-32) mmol/L Anion Gap 10 (3-11) BUN 44 H (6-23) mg/dl Creatinine 7.13 H* (0.6-1.4) mg/dl Est Cr Clr Drug Dosing 8.2 ml/min Est GFR ( Amer) 7.2 ml/min Est GFR (Non-Af Amer) 6.2 ml/min BUN/Creatinine Ratio 6.2 L (10-20) Glucose 254 H (70-99(Fasting)) mg/dl Calcium 8.5 L (8.6-10.3) mg/dl Magnesium 2.1 (1.7-2.4) mg/dl Total Bilirubin 0.5 (0.2-1.0) mg/dl AST 13 (13-39) U/L ALT 7 (7-52) U/L Alkaline Phosphatase 77 (34-104) U/L Troponin I High Sens 12.7 (0-20) pg/ml Total Protein 7.3 (6.0-8.3) gm/dl Albumin 3.5 (3.4-5.0) gm/dl Globulin 3.8 (2.5-4.0) gm/dl Albumin/Globulin Ratio 0.9 (0.9-2) Procalcitonin 0.27 (0-0.5) ng/ml Adenovirus (PCR) Not Detected (NotDetected) B. pertussis DNA (PCR) Not Detected (NotDetected) B.parapertussis DNA PCR Not Detected (NotDetected) C. pneumoniae DNA (PCR) Not Detected (NotDetected) Coronavirus OC43 (PCR) Not Detected (NotDetected) Coronavirus HKU1 (PCR) Not Detected (NotDetected) Coronavirus 229E (PCR) Not Detected (NotDetected) SARS-CoV-2 (PCR) Not Detected (NotDetected) Coronavirus NL63 (PCR) Not Detected (NotDetected) Human Metapneumovir PCR Not Detected (NotDetected) Influenza Type A (PCR) Not Detected (NotDetected) Influenza Type B (PCR) Not Detected (NotDetected) M. pneumoniae (PCR) Not Detected (NotDetected) Parainfluenza 1 (PCR) Not Detected (NotDetected) Parainfluenza 2 (PCR) Not Detected (NotDetected) Parainfluenza 3 (PCR) Not Detected (NotDetected) Parainfluenza 4 (PCR) Not Detected (NotDetected) RSV (PCR) Not Detected (NotDetected) Entero/Rhino (PCR) Not Detected (NotDetected) Imaging Data Attestation: I personally reviewed and interpreted this imaging study as follows: MDM Narrative Prior records/ancillary studies reviewed. Triage Nursing notes reviewed. Additional history obtained from the nursing. The patient's history was concerning for respiratory difficulties. Differential diagnosis: Etiologies such as infections, reactive airway disease, pneumonia, pneumothorax, COPD, CHF, cardiac ischemia, pulmonary embolism, musculoskeletal, gastrointestinal, as well as others were entertained. Physical examination: As above. ER treatment provided: An order was placed for continuous cardiac monitoring. The monitor shows a rate of 60-100 with a sinus rhythm per my interpretation. Zosyn, nebulizer On reassessment the patient felt better. Diagnostic interpretation by me: The electrocardiogram was ordered for SOB. ECG: Normal sinus, normal intervals, poor baseline, no acute ST-T wave changes, rate of 75. Impression normal sinus rhythm independent interpreted by myself The labs Independently Interpreted by myself revealed negative procalcitonin. No worrisome leukocytosis, elevated creatinine and patient is due for dialysis Imaging studies: Chest x-ray pulmonary congestion with right lower lobe consolidation per my independent interpretation Consultation: A consultation was placed with the hospitalist. The case was discussed and diagnostics were reviewed. The patient was evaluated in the ER for further treatment. This appears to be consistent with heart failure and pneumonia. Patient was started on antibiotics. He was placed on oxygen and given a nebulizer. His breathing felt better. Medicine was consulted and case was discussed. He will be mated to the medical service for further evaluation and treatment. By the evaluation outlined above emergent etiologies such as cardiac ischemia, pulmonary embolism, reactive airway disease, pneumothorax, musculoskeletal, as well as others were deemed relatively unlikely. The pt informed about the findings as listed above. All questions were answered and pleased with the treatment. The chart was completed utilizing [employer] Speech voice recognition software. Grammatical errors, random word insertions, pronoun errors, and incomplete sentences are an occassional consequence of this system due to software limitations, ambient noise, and hardware issues. Any formal questions or concerns about the content, text, or information contained within the body of this dictation should be directly addressed to the physician office services assistant for clarification. Impression & Plan Pneumonia, Heart failure, ESRD needing dialysis Discharge Plan Visit Data Chief Complaint: Shortness of Breath/Dyspnea Stated Complaint: SHORTNESS OF BREATH ED Provider: Jesica Lorenzo ED Midlevel Provider: Margret Vazquez Discharge Problem: Pneumonia, Heart failure, ESRD needing dialysis Patient Disposition: Admitted As Inpatient Forms Stand Alone Forms: [facility] Prescriptions Prescriptions: No Action lorazepam 0.5 mg tablet 0.5 mg PO Q12H PRN (Reason: anxiety) Qty: 60 2RF pravastatin 40 mg tablet 40 mg PO QPM Qty: 90 3RF insulin asp prt-insulin aspart [Novolog Mix 70-30 U-100 Insuln] 100 unit/mL (70-30) solution 40 unit subcut BID Qty: 72 2RF (DME) FreeStyle Frederick 2 Sensor Kit See Rx Instructions .Route Qty: 6 3RF Rx Instructions: change sensor Q14D metoprolol tartrate 50 mg tablet 50 mg PO BID Qty: 180 3RF folic acid 1 mg tablet See Rx Instructions .ROUTE .COMPLEX Qty: 90 3RF Dose Instruction: 1 MG ORALLY DAILY IN THE MORNING Rx Instructions: 1 MG ORALLY DAILY IN THE MORNING nitroglycerin 0.4 mg tablet, sublingual 0.4 mg sublingual Q5M PRN (Reason: hypertensive emergency) Qty: 25 5RF Rx Instructions: Take 1 pill for blood pressure > 180 mm Hg ProRenal 8 mg iron-800 mcg-1,000 unit tablet 1 tab PO QAM calcium acetate(phosphat bind) 667 mg capsule 2,001 mg PO TIDM Patient Comments: 1,334 mg PO 3 times a day with meals; with snacks take 2 capsules (DME) OneTouch Ultra Test Strip See Rx Instructions .Route Rx Instructions: check blood sugar twice daily (DME) pen needle, diabetic [BD Ultra-Fine Tiffanie Pen Needle] 32 gauge x 5/32" needle See Rx Instructions .ROUTE .MEDSUPPLY Qty: 200 3RF Rx Instructions: use twice daily Colace Clear 50 mg capsule 50 mg PO DAILY PRN (Reason: Constipation) amlodipine 5 mg tablet 5 mg PO 4XWK Rx Instructions: 5 mg orally on non-dialysis days (-S-); Referrals Referrals: PCP,NO [Primary Care Provider] - Discharge Problem: Pneumonia Qualifiers: Pneumonia type: due to unspecified organism Laterality: right Lung location: l ower lobe of lung Qualified Code(s): J18.9 - Pneumonia, unspecified organism
[2023-12-02 02:28] LABS: Magnesium 2.1 mg/dl (1.7-2.4)
[2023-12-02 02:35] LABS: Troponin I High Sensitivity 12.7 pg/ml (0-20)
[2023-12-02] MEDS: PIPERACILLIN/TAZOBACTAM 4.5 GM/100 ML BAG IV ONE (02:38)
[2023-12-02 02:41] LABS: Basophils # (auto) 0.02 K/uL (0.00-0.20); Basophils % (auto) 0.3 %; Eosinophils # (auto) 0.13 K/uL (0.00-0.50); Eosinophils % (auto) 2.3 %; Hematocrit (blood only) 32.2 % (42.0-52.0); Hemoglobin 9.9 g/dl (14.0-18.0); Immature Granulocytes # (auto) 0.03 K/uL (0.01-0.20); Immature Granulocytes % (auto) 0.5 %; Lymphocytes # (auto) 1.05 K/uL (1.20-3.40); Lymphocytes % (auto) 18.4 %; Mean Corpuscular Hemoglobin 30.4 pg (25.0-34.0); Mean Corpuscular Hgb Conc 30.7 g/dL (32.0-36.0); Mean Corpuscular Volume 98.8 fL (80.0-100.0); Mean Platelet Volume 10.6 fL (9.4-12.4); Monocytes # (auto) 0.41 K/uL (0.11-0.59); Monocytes % (auto) 7.2 %; Neutrophils # (auto) 4.08 K/uL (1.40-6.50); Neutrophils % (auto) 71.3 %; Platelet Count 93 K/uL (130-400); Platelet Estimate Decreased (Normal); RDW Coefficient of Variation 15.9 % (11.5-14.5); RDW Standard Deviation 58.2 fL (36.4-46.3); Red Blood Count 3.26 M/uL (4.70-6.10); White Blood Count 5.72 K/ul (4.8-10.8)
[2023-12-02 02:58] LABS: Albumin Globulin Ratio 0.9 (0.9-2); Albumin Level 3.5 gm/dl (3.4-5.0); BUN Creatinine Ratio 6.2 (10-20); Bilirubin,Total 0.5 mg/dl (0.2-1.0); Calcium 8.5 mg/dl (8.6-10.3); Creatinine Clr Calc Pharmacy 8.2 ml/min; Est GFR (African American) 7.2 ml/min; Est GFR (Non-African American) 6.2 ml/min; Globulin 3.8 gm/dl (2.5-4.0); Potassium 3.8 mmol/L (3.5-5.1); Total Protein 7.3 gm/dl (6.0-8.3)
--- NOTE | 2023-12-02 03:51 | Emergency Department Note ---
ED Visit Note I was consulted by the Advanced Practice Provider. I personally made/approved the management plan and take responsibility for the patient management. I performed a substantive portion of the visit. This includes the aspects of: -History/Physical and Personally seeing the patient -MDM -I independently interpreted the following studies: Portable chest x-ray .
--- NOTE | 2023-12-02 03:59 | History & Physical Report ---
Date of Service December 02, 2023 Assessment & Plan (1) Hypoxia: Plan: 88-year-old male with a history of end-stage renal disease on hemodialysis, diabetes, COPD presenting with acute hypoxic respiratory failuresaturations of 86% in the ER requiring placement of supplemental O2. Patient now breathing comfortably but does get visibly dyspneic with motion. Chest x-ray as above appears to have right-sided airspace disease with possible effusion. Patient does not endorse fever, chills, sweats. No leukocytosis. Normal procalcitonin argues against pneumonia. No wheezing appreciated on physical exam. Admit to medical Check BNP Continue supplemental oxygen as needed to maintain goal saturation of 90% DuoNeb every 4 hours scheduled with albuterol as needed for shortness of breath or wheeze Nephrology consultation for dialysis in the morning. Hopefully patient's shortness of breath and hypoxia will improve with fluid removal. Of note, he does not make urine so administering diuretics would be ineffectual (2) ESRD needing dialysis: Plan: Patient receives hemodialysis q. Saturday/Saturday/Saturday. Last full session on Saturday. He is an uric Nephrology consultation appreciated Will continue PhosLo and renal vitamins (3) Atrial fibrillation: Plan: Patient appears to be in atrial fibrillation. He reports he has been told he was in atrial fibrillation in the past Continue metoprolol No anticoagulation at this time -patient is high risk by [id number] score given advanced age and medical comorbidities, also at high risk for bleed given advanced age and history of renal disease and poorly controlled hypertension Check TSH (4) T2DM (type 2 diabetes mellitus): Plan: Last hemoglobin A1c on record = 8.4 from 06/11/2022. Blood sugar elevated at present at 254 Lantus 30 units twice daily Insulin sliding scale Goal blood sugar [id number] Consistent carb diet as tolerated (5) CAD (coronary artery disease): (6) Hypertension: Plan: Blood pressure elevated at 160/75 at present Continue amlodipine Continue metoprolol (7) Dyslipidemia: Plan: Chronic. Continue pravastatin 40 mg p.m. History of Present Illness Chief Complaint: shortness of breath Primary Care Provider: NO PCP Isidro Madden is a pleasant 88-year-old male with multiple medical comorbidities to include ESRD on hemodialysis Saturday/Saturday/Saturday, diabetes, hyperlipidemia and COPD presenting from home with several days of shortness of breath. Patient reports he has a difficult time catching his breath and also feels "fullness in his chest". He has not been coughing. Denies chest pain or palpitations. Denies fevers, chills or sweats no report of worsening edema, no recent URI symptoms. No abdominal pain, nausea or vomiting. Patient had his last dialysis session on Saturdaycomplete session with over 2 L of fluid removal. Patient does not make urine In the ER he is afebrile, hypertensive, hypoxic on room air to 86%. Patient does not wear supplemental oxygen at home. He was placed on 2 L with improvement to the low 90s. ER course: Zosyn Albuterol neb Allergies Allergy/AdvReac Type Severity Reaction Status Date / Time clarithromycin AdvReac Intermediate confusion Verified 07/09/23 14:21 fish oil AdvReac Intermediate hx of Verified 07/09/23 14:21 hemorrhage in past Sulfa (Sulfonamide AdvReac Intermediate severe Verified 07/09/23 14:21 Antibiotics) agitation/delirium Home Medications Medication Instructions Recorded Confirmed Type vit B complx, C-iron 8 mg-folic 1 tab PO QAM 03/05/19 07/09/23 History acid 800 mcg-D3 1,000 unit-zinc tablet (ProRenal) calcium acetate(phosphat bind) 667 2,001 mg PO TIDM 05/03/21 07/09/23 History mg capsule docusate sodium 50 mg capsule 50 mg PO DAILY PRN Constipation 05/03/21 07/09/23 History (Colace Clear) lorazepam 0.5 mg tablet 0.5 mg PO Q12H PRN anxiety #60 tabs 01/23/22 07/09/23 Rx blood sugar diagnostic (OneTouch 09/25/22 07/09/23 History Ultra Test strips) pravastatin 40 mg tablet 40 mg PO QPM #90 tabs 01/14/23 07/09/23 Rx amlodipine 5 mg tablet 5 mg PO 4XWK 02/18/23 07/09/23 History insulin aspar prt-insulin aspart 40 unit (0.4 mL) subcut BID #72 mL 03/05/23 07/09/23 Rx 100 unit/mL (70-30) subcutaneous soln (Novolog Mix 70-30 U-100 Insuln) flash glucose sensor (FreeStyle #6 ea 03/19/23 07/09/23 Rx [place] 2 Sensor kit) pen needle, diabetic 32 gauge x #200 ea 06/19/23 07/09/23 Rx /32" (BD Ultra-Fine Tiffanie Pen Needle) metoprolol tartrate 50 mg tablet 50 mg PO BID #180 tabs 07/16/23 Rx folic acid 1 mg tablet See Rx Instructions .Route 08/01/23 Rx .COMPLEX #90 tabs nitroglycerin 0.4 mg sublingual 0.4 mg sublingual Q5M PRN 09/25/23 Rx tablet hypertensive emergency #25 tabs Past Med/Surg History Medical History Elevated troponin Acute respiratory failure with hypoxia Weakness Hyperkalemia Pulmonary edema Acute respiratory failure Exertional dyspnea Chest pain Phimosis of penis AV fistula AV fistula Anxiety Breathlessness Right shoulder tendinitis Right shoulder pain T2DM (type 2 diabetes mellitus) Acute dyspnea Anemia COVID-19 COPD (chronic obstructive pulmonary disease) Dialysis AV fistula malfunction Emphysema lung suggested per CXR History of blood transfusion 2/2 GIB felt r/t radiation therapy s/p total of 6 units PRBC's since 10/2018 Arteriovenous fistula thrombosis Gout Osteoarthritis Hearing deficit LEFT Diabetic neuropathy Transient ischemic attack (TIA) (2014) 2014--no deficits, no neurologist Thrombocytopenia Pulmonary nodules UNDER SURVEILLANCE Prostate cancer S/P SURGERY, XRT 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 Hanna through Right AV fistula 08/17/19 S/P arteriovenous (AV) fistula creation right 05/[address] Hanna S/P dialysis catheter insertion Permcath + attempted thrombectomy: 04/2019: MAC sedation at [facility] History of esophagogastroduodenoscopy (EGD) + CAUTERIZATION (2/2 GIB) History of colonoscopy History of tooth extraction History of cataract surgery RIGHT/LEFT History of cardiac cath X3 = NO STENTS S/P arteriovenous (AV) fistula creation LEFT Right side recently ballooned and stented in [facility] Amputation of left little finger History of arthroscopy LEFT KNEE History of bowel resection BOWEL LACERATION DURING ATTEMPTING POLYPECTOMY H/O prostatectomy Family History Father Family history of diabetes mellitus Hypertension Brother Prostate cancer Mother Heart disease Hypertension Denies family history of Ovarian cancer Breast cancer Lung cancer Colorectal cancer Social History Smoking Status: Never smoker Second Hand Exposure: No; Do You Dip or Chew Tobacco: No; Hx Alcohol Use: No Hx Substance Use: No Preferred Language: Tunisian Communication Ability: Effective Visual Impairment: No Limitations Hearing Ability: Normal 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 Beliefs That Will Affect Care: None marital status: / Current Living Situation: Family Current Living Situation Comment: Lives with Grandson current occupational status: retired How many Children do You have: 1 Feels Safe at Home: Yes Childhood Exposure to Second-Hand Smoke: Yes Diet: regular Diet Comment: regular caffeine: Yes (coffee, once in a while) during the past year weight has: remained stable Dental Care, Regularly: Yes Physical Activity Frequency: Does not Exercise Seatbelt Use: always Sunscreen Use: No Assistive Devices: Walker Review of Systems Review of Systems: All systems reviewed & are unremarkable except as noted in HPI & below Physical Exam Physical Exam: General: patient resting comfortably, NAD, non-toxic in appearance, AA&O x 4, nasal cannula in place with saturation of 91% with good pleth Skin: warm, dry, intact, no rashes or lesions HEENT: NC/AT, PERRL, EOMI, anicteric sclera, conjunctiva without injection, external ear normal to inspection and nontender, nares patent, moist mucus membranes, dentition intact, no oropharyngeal lesions, neck supple, trachea midline, no LAD, no thyromegaly, no JVD Heart: +S1/S2, regular with frequent ectopy, no m/r/g Lungs: equal air entry bilaterally, no rales/rhonchi/wheezes, diminished in bases Abd: +BS, soft, NT/ND, no masses/organomegaly/ascites Ext: warm, 2+ pulses in UE/LE bilaterally, no clubbing/cyanosis or edema, LUE AV fistula pulsatile, RUE AV fistula with palpable thrill Neuro: nonfocal, patient AA&O x 4, speech intact, no facial droop, moving all extremities on command with equal strength 5/5 Results & Data Results & Data Vital Signs (Past 12 Hours) Vital Signs Temp Pulse Pulse Resp BP BP Pulse Ox 12/02/23 00:40 12/02/23 00:36 12/02/23 00:31 12/02/23 00:31 36.7 C 77 25 H 162/75 H 90 12/02/23 00:20 73 24 170/110 H 95 O2 Del Method O2 Flow Rate 12/02/23 00:40 Nasal Cannula 2 12/02/23 00:36 Nasal Cannula 2 12/02/23 00:31 Nasal Cannula 2 12/02/23 00:31 Room Air 12/02/23 00:20 Nasal Cannula 2 Laboratory Results Laboratory Results WBC 5.72 K/ul (4.8-10.8) 12/02/23 01:55 RBC 3.26 M/uL (4.70-6.10) L 12/02/23 01:55 Hgb 9.9 g/dl (14.0-18.0) L 12/02/23 01:55 Hct 32.2 % (42.0-52.0) L 12/02/23 01:55 MCV 98.8 fL (80.0-100.0) 12/02/23 01:55 MCH 30.4 pg (25.0-34.0) 12/02/23 01:55 MCHC 30.7 g/dL (32.0-36.0) L 12/02/23 01:55 RDW Std Deviation 58.2 fL (36.4-46.3) H 12/02/23 01:55 RDW Coeff of Casandra 15.9 % (11.5-14.5) H 12/02/23 01:55 Plt Count 93 K/uL (130-400) L 12/02/23 01:55 MPV 10.6 fL (9.4-12.4) 12/02/23 01:55 Immature Gran % (Auto) 0.5 % 12/02/23 01:55 Neut % (Auto) 71.3 % 12/02/23 01:55 Lymph % (Auto) 18.4 % 12/02/23 01:55 [place] % (Auto) 7.2 % 12/02/23 01:55 Eos % (Auto) 2.3 % 12/02/23 01:55 Baso % (Auto) 0.3 % 12/02/23 01:55 Neut # (Auto) 4.08 K/uL (1.40-6.50) 12/02/23 01:55 Lymph # (Auto) 1.05 K/uL (1.20-3.40) L 12/02/23 01:55 [place] # (Auto) 0.41 K/uL (0.11-0.59) 12/02/23 01:55 Eos # (Auto) 0.13 K/uL (0.00-0.50) 12/02/23 01:55 Baso # (Auto) 0.02 K/uL (0.00-0.20) 12/02/23 01:55 Immature Gran # (Auto) 0.03 K/uL (0.01-0.20) 12/02/23 01:55 Platelet Estimate Decreased (Normal) L 12/02/23 01:55 Sodium 135 mmol/L (136-145) L 12/02/23 01:55 Potassium 3.8 mmol/L (3.5-5.1) 12/02/23 01:55 Chloride 94 mmol/L (98-107) L 12/02/23 01:55 Carbon Dioxide 31 mmol/L (21-32) 12/02/23 01:55 Anion Gap 10 (3-11) 12/02/23 01:55 BUN 44 mg/dl (6-23) H 12/02/23 01:55 Creatinine 7.13 mg/dl (0.6-1.4) H* 12/02/23 01:55 Est Cr Clr Drug Dosing 8.2 ml/min 12/02/23 01:55 Est GFR ( Amer) 7.2 ml/min 12/02/23 01:55 Est GFR (Non-Af Amer) 6.2 ml/min 12/02/23 01:55 BUN/Creatinine Ratio 6.2 (10-20) L 12/02/23 01:55 Glucose 254 mg/dl (70-99(Fasting)) H 12/02/23 01:55 Calcium 8.5 mg/dl (8.6-10.3) L 12/02/23 01:55 Magnesium 2.1 mg/dl (1.7-2.4) 12/02/23 01:55 Total Bilirubin 0.5 mg/dl (0.2-1.0) 12/02/23 01:55 AST 13 U/L (13-39) 12/02/23 01:55 ALT 7 U/L (7-52) 12/02/23 01:55 Alkaline Phosphatase 77 U/L (34-104) 12/02/23 01:55 Troponin I High Sens 12.7 pg/ml (0-20) 12/02/23 01:55 Total Protein 7.3 gm/dl (6.0-8.3) 12/02/23 01:55 Albumin 3.5 gm/dl (3.4-5.0) 12/02/23 01:55 Globulin 3.8 gm/dl (2.5-4.0) 12/02/23 01:55 Albumin/Globulin Ratio 0.9 (0.9-2) 12/02/23 01:55 Procalcitonin 0.27 ng/ml (0-0.5) 12/02/23 01:55 Adenovirus (PCR) Not Detected (NotDetected) 12/02/23 00:41 B. pertussis DNA (PCR) Not Detected (NotDetected) 12/02/23 00:41 B.parapertussis DNA PCR Not Detected (NotDetected) 12/02/23 00:41 C. pneumoniae DNA (PCR) Not Detected (NotDetected) 12/02/23 00:41 Coronavirus OC43 (PCR) Not Detected (NotDetected) 12/02/23 00:41 Coronavirus HKU1 (PCR) Not Detected (NotDetected) 12/02/23 00:41 Coronavirus 229E (PCR) Not Detected (NotDetected) 12/02/23 00:41 SARS-CoV-2 (PCR) Not Detected (NotDetected) 12/02/23 00:41 Coronavirus NL63 (PCR) Not Detected (NotDetected) 12/02/23 00:41 Human Metapneumovir PCR Not Detected (NotDetected) 12/02/23 00:41 Influenza Type A (PCR) Not Detected (NotDetected) 12/02/23 00:41 Influenza Type B (PCR) Not Detected (NotDetected) 12/02/23 00:41 M. pneumoniae (PCR) Not Detected (NotDetected) 12/02/23 00:41 Parainfluenza 1 (PCR) Not Detected (NotDetected) 12/02/23 00:41 Parainfluenza 2 (PCR) Not Detected (NotDetected) 12/02/23 00:41 Parainfluenza 3 (PCR) Not Detected (NotDetected) 12/02/23 00:41 Parainfluenza 4 (PCR) Not Detected (NotDetected) 12/02/23 00:41 RSV (PCR) Not Detected (NotDetected) 12/02/23 00:41 Entero/Rhino (PCR) Not Detected (NotDetected) 12/02/23 00:41 Diagnostic Findings Chest x-rayper my interpretation. Appears to have significant right-sided airspace opacity with pleural effusion ECG Additional Comments: Patient with atrial fibrillation at 79 bpm, no acute ischemic changes PG Care Time/CCT Total # of Minutes Spent Total Time Spent with Patient: Total time spent is greater than 50% in coordination of care (as documented) at patient's floor/unit and/or counseling patient: Coding Level of Care Code 51766 INT INP/OBS CARE 2/55MIN Diagnoses Hypoxia R09.02 ESRD needing dialysis N18.6; Z99.2 Atrial fibrillation I48.91 T2DM (type 2 diabetes mellitus) E11.9 CAD (coronary artery disease) I25.10 Hypertension I10 Dyslipidemia E78.5
--- NOTE | 2023-12-02 06:53 | XRay Report ---
XR chest 1V portable HISTORY: 88 years-old Male Dyspnea acute shortness of breath COMPARISON: 02/18/2023 TECHNIQUE: AP view of the chest FINDINGS: Cardiac silhouette is enlarged. Atherosclerosis of the aorta. No pneumothorax. Trace left with small- to-moderate right pleural effusions. Right basilar predominant air space consolidation. Bones appear grossly intact. IMPRESSION: 1. Cardiomegaly with pulmonary edema. 2. Trace left and [id number] right pleural effusions. 3. Dense right basilar prominent airspace consolidation should be correlated clinically to exclude pn eumonia. ACT 112: Negative or not required by law. The above report was generated using voice recognition software. It may contain grammatical, syntax o r spelling errors. Electronically signed by: Otto Vazquez M.D. 12/02/2023 6:51 AM
[2023-12-02] MEDS ORDERED: GLUCOSE 40% GEL 15 GM TUBE PO PRN (06:55)
[2023-12-02] MEDS ORDERED: GLUCAGON FOR INJ 1 MG VIAL SQ PRN (06:55)
[2023-12-02] MEDS ORDERED: ONDANSETRON INJ 2 MG/ML 2 ML VIAL IV PRN (06:55)
[2023-12-02] MEDS ORDERED: ALBUTEROL 0.5% NEB SOLN 2.5 MG/0.5 ML VIAL NEB PRN (06:55)
[2023-12-02] MEDS ORDERED: DEXTROSE 50% 50 ML SYRINGE IV PRN (06:55)
[2023-12-02] MEDS ORDERED: GLUCOSE 10 TAB/TUBE PO PRN (06:55)
[2023-12-02] MEDS ORDERED: ACETAMINOPHEN 325 MG TAB PO PRN (06:55)
[2023-12-02] MEDS: ALBUT/IPRATROP 3MG/0.5MG NEB 3 ML VIAL NEB SCH (08:40)
--- NOTE | 2023-12-02 08:52 | Nephrology Consultation ---
Date of Consultation December 02, 2023 Assessment & Plan (1) ESRD needing dialysis: * Outpatient HD Rx: MWF at [facility] [place] - 4hr, 2K 2.5Ca F-180NR, EDW 90kg * CXR film reviewed this am. Patient does have a component of volume overload * Will provide HD this am and attempt 3L UF using Crit-line monitor. Orders have been placed in EMR and HD RN notified * HD diet, continue renal vitamin and phosphate binder (2) Pneumonia: * Received one dose IV Zosyn in EMD * Procalcitonin negative * Monitor temperature, respiratory symptoms * Repeat CXR in am following HD (3) Anemia: * Will provide BENJAMÍN w/ HD today * Monitor H&H (4) T2DM (type 2 diabetes mellitus): * Management as per hospitalist service History of Present Illness Reason for Consultation: ESKD-D Attending Physician: Chencho Rice MD History of Present Illness Mr. Madden is an 88 year old white male who was seen at the request of the [facility] Hospitalist Service to provide inpatient HD and assist w/ medical management. Medical records in the EMR were reviewed today and are summarized as follows: Mr. Madden has ESKD due to DKD. He dialyzes MWF at [facility] (Dr. Acosta 4hrs 2K 2.5Ca F-180NR EDW 90kg). 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 Mr. Madden reports progressive dyspnea over the last two days. He did attend dialysis on Saturday and there were no complications. In [facility] EMD SaO2 89%. CXR revealed pulmonary edema, small R effusion and RLL infiltrate. Procalcitonin was normal. He denies fever, angina, productive cough Allergies Allergy/AdvReac Type Severity Reaction Status Date / Time clarithromycin AdvReac Intermediate confusion Verified 07/09/23 14:21 fish oil AdvReac Intermediate hx of Verified 07/09/23 14:21 hemorrhage in past Sulfa (Sulfonamide AdvReac Intermediate severe Verified 07/09/23 14:21 Antibiotics) agitation/delirium Home Medications Medication Instructions Recorded Confirmed Type vit B complx, C-iron 8 mg-folic 1 tab PO QAM 03/05/19 07/09/23 History acid 800 mcg-D3 1,000 unit-zinc tablet (ProRenal) calcium acetate(phosphat bind) 667 2,001 mg PO TIDM 05/03/21 07/09/23 History mg capsule docusate sodium 50 mg capsule 50 mg PO DAILY PRN Constipation 05/03/21 07/09/23 History (Colace Clear) lorazepam 0.5 mg tablet 0.5 mg PO Q12H PRN anxiety #60 tabs 01/23/22 07/09/23 Rx blood sugar diagnostic (OneTouch 09/25/22 07/09/23 History Ultra Test strips) pravastatin 40 mg tablet 40 mg PO QPM #90 tabs 01/14/23 07/09/23 Rx amlodipine 5 mg tablet 5 mg PO 4XWK 02/18/23 07/09/23 History insulin aspar prt-insulin aspart 40 unit (0.4 mL) subcut BID #72 mL 03/05/23 07/09/23 Rx 100 unit/mL (70-30) subcutaneous soln (Novolog Mix 70-30 U-100 Insuln) flash glucose sensor (FreeStyle #6 ea 03/19/23 07/09/23 Rx Frederick 2 Sensor kit) pen needle, diabetic 32 gauge x #200 ea 06/19/23 07/09/23 Rx 5/32" (BD Ultra-Fine Tiffanie Pen Needle) metoprolol tartrate 50 mg tablet 50 mg PO BID #180 tabs 07/16/23 Rx folic acid 1 mg tablet See Rx Instructions .Route 08/01/23 Rx .COMPLEX #90 tabs nitroglycerin 0.4 mg sublingual 0.4 mg sublingual Q5M PRN 09/25/23 Rx tablet hypertensive emergency #25 tabs Patient History Medical History Elevated troponin Acute respiratory failure with hypoxia Weakness Hyperkalemia Pulmonary edema Acute respiratory failure Exertional dyspnea Chest pain Phimosis of penis AV fistula AV fistula Anxiety Breathlessness Right shoulder tendinitis Right shoulder pain T2DM (type 2 diabetes mellitus) Acute dyspnea Anemia COVID-19 COPD (chronic obstructive pulmonary disease) Dialysis AV fistula malfunction Emphysema lung suggested per CXR History of blood transfusion 2/2 GIB felt r/t radiation therapy s/p total of 6 units PRBC's since 10/2018 Arteriovenous fistula thrombosis Gout Osteoarthritis Hearing deficit LEFT Diabetic neuropathy Transient ischemic attack (TIA) (2014) 2014--no deficits, no neurologist Thrombocytopenia Pulmonary nodules UNDER SURVEILLANCE Prostate cancer S/P SURGERY, XRT 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 Hanna through Right AV fistula 08/17/19 S/P arteriovenous (AV) fistula creation right 05/[address] Hanna S/P dialysis catheter insertion Permcath + attempted thrombectomy: 04/2019: MAC sedation at [facility] History of esophagogastroduodenoscopy (EGD) + CAUTERIZATION (2/2 GIB) History of colonoscopy History of tooth extraction History of cataract surgery RIGHT/LEFT History of cardiac cath X3 = NO STENTS S/P arteriovenous (AV) fistula creation LEFT Right side recently ballooned and stented in [facility] Amputation of left little finger History of arthroscopy LEFT KNEE History of bowel resection BOWEL LACERATION DURING ATTEMPTING POLYPECTOMY H/O prostatectomy Family History Father Family history of diabetes mellitus Hypertension Brother Prostate cancer Mother Heart disease Hypertension Denies family history of Ovarian cancer Breast cancer Lung cancer Colorectal cancer Social History Smoking Status: Never smoker Second Hand Exposure: No; Do You Dip or Chew Tobacco: No; Hx Alcohol Use: No Hx Substance Use: No Preferred Language: Turkmen Communication Ability: Effective Visual Impairment: No Limitations Hearing Ability: Normal Children[facility] Magistrate Required: No Beliefs That Will Affect Care: None marital status: / Current Living Situation: Family Current Living Situation Comment: Lives with Grandson current occupational status: retired How many Children do You have: 1 Feels Safe at Home: Yes Childhood Exposure to Second-Hand Smoke: Yes Diet: regular Diet Comment: regular caffeine: Yes (coffee, once in a while) during the past year weight has: remained stable Dental Care, Regularly: Yes Physical Activity Frequency: Does not Exercise Seatbelt Use: always Sunscreen Use: No Assistive Devices: Walker Review of Systems Constitutional: no fever Eyes: no problem reported Ear, Nose, Mouth, Throat: no problem reported Respiratory: + dyspnea; no cough and no sputum produc tion Cardiovascular: no chest pain Gastrointestinal: no nausea, no vomiting and no diarrhea/loose stools Physical Exam Constitutional: + frail appearing; not in distress Eyes: PERRL, conjunctivae normal, anicteric sclerae ENMT: external ear and nose normal, oropharynx normal Neck: trachea midline, no thyromegaly Respiratory: normal respiratory effort, lungs clear to auscultation Cardiovascular: RRR, no murmur, no edema Extremities: + AV fistula (R BC AVF w/+ bruit) Gastrointestinal (Abdomen): normal bowel sounds, soft, nontender, no hepato splenomegaly Skin: no rashes, warm and dry Neurologic: awake; not confused Speech / Cognition: normal speech Psychiatric: Affect: euthymic affect Results & Data Vital Signs (Past 12 Hours) Vital Signs Temp Pulse Pulse Resp BP BP Pulse Ox 12/02/23 07:32 76 12/02/23 06:30 77 18 93 12/02/23 06:20 82 21 93 12/02/23 06:20 107 H 12/02/23 06:15 108 H 27 H 12/02/23 06:00 79 21 92 12/02/23 06:00 75 20 158/71 H 92 12/02/23 05:50 75 20 92 12/02/23 05:40 90 20 93 12/02/23 05:30 103 H 20 92 12/02/23 05:20 82 22 93 12/02/23 05:10 83 26 H 94 12/02/23 05:00 82 26 H 12/02/23 05:00 85 28 H 165/86 H 94 12/02/23 04:50 85 28 H 12/02/23 04:40 83 20 12/02/23 04:30 74 18 12/02/23 04:20 81 21 12/02/23 04:10 79 19 12/02/23 04:00 82 21 12/02/23 04:00 82 21 188/78 H 94 12/02/23 03:50 76 21 12/02/23 03:40 79 24 12/02/23 03:30 83 23 94 12/02/23 03:20 75 21 94 12/02/23 03:10 78 19 92 12/02/23 03:00 80 19 131/80 94 12/02/23 03:00 80 19 94 12/02/23 02:50 82 24 93 12/02/23 02:40 94 H 17 95 12/02/23 02:30 86 22 93 12/02/23 02:20 88 12/02/23 02:20 81 27 H 12/02/23 02:10 84 19 95 12/02/23 02:00 79 18 12/02/23 02:00 77 18 172/78 H 95 12/02/23 01:50 77 18 12/02/23 01:40 179/117 H 12/02/23 01:40 73 24 90 12/02/23 01:30 76 20 96 12/02/23 01:20 80 19 95 12/02/23 01:10 74 17 94 12/02/23 01:00 128/83 12/02/23 01:00 79 26 H 12/02/23 00:50 73 22 96 12/02/23 00:40 75 24 96 12/02/23 00:40 12/02/23 00:36 12/02/23 00:31 170/110 H 12/02/23 00:31 79 21 93 12/02/23 00:31 12/02/23 00:31 36.7 C 77 25 H 162/75 H 90 12/02/23 00:30 78 22 90 12/02/23 00:27 82 26 H 162/75 H 91 12/02/23 00:27 82 26 H 12/02/23 00:26 76 23 12/02/23 00:20 73 24 170/110 H 95 O2 Del Method O2 Flow Rate 12/02/23 07:32 12/02/23 06:30 12/02/23 06:20 12/02/23 06:20 12/02/23 06:15 12/02/23 06:00 12/02/23 06:00 Nasal Cannula 2 12/02/23 05:50 12/02/23 05:40 12/02/23 05:30 12/02/23 05:20 12/02/23 05:10 12/02/23 05:00 12/02/23 05:00 12/02/23 04:50 12/02/23 04:40 12/02/23 04:30 12/02/23 04:20 12/02/23 04:10 12/02/23 04:00 12/02/23 04:00 Nasal Cannula 2 12/02/23 03:50 12/02/23 03:40 12/02/23 03:30 12/02/23 03:20 12/02/23 03:10 12/02/23 03:00 12/02/23 03:00 12/02/23 02:50 12/02/23 02:40 12/02/23 02:30 12/02/23 02:20 12/02/23 02:20 12/02/23 02:10 12/02/23 02:00 12/02/23 02:00 12/02/23 01:50 12/02/23 01:40 12/02/23 01:40 12/02/23 01:30 12/02/23 01:20 12/02/23 01:10 12/02/23 01:00 12/02/23 01:00 12/02/23 00:50 12/02/23 00:40 12/02/23 00:40 Nasal Cannula 2 12/02/23 00:36 Nasal Cannula 2 12/02/23 00:31 12/02/23 00:31 12/02/23 00:31 Nasal Cannula 2 12/02/23 00:31 Room Air 12/02/23 00:30 12/02/23 00:27 12/02/23 00:27 12/02/23 00:26 12/02/23 00:20 Nasal Cannula 2 Diagnostic Findings 12/02/23 CXR: Cardiac silhouette is enlarged. Atherosclerosis of the aorta. No pneumothorax. Trace left with [id number] right pleural effusions. Right basilar predominant air space consolidation. Bones appear grossly intact. PG Care Time/CCT Total # of Minutes Spent Total Time Spent with Patient: Total time spent is greater than 50% in coordination of care (as documented) at patient's floor/unit and/or counseling patient: Coding Level of Care Code 93967 IN/OBS CONSULT LVL 5,80M Diagnoses ESRD needing dialysis N18.6; Z99.2 Pneumonia J18.9 Laterality: right Lung location: lower lobe of lung Pneumonia type: due to unspecified organism Anemia D64.9 Anemia type: unspecified type T2DM (type 2 diabetes mellitus) E11.9 (2) Pneumonia Laterality: right Lung location: lower lobe of lung Pneumonia type: due to unspecified organism Qualified Code(s): J18.9 - Pneumonia, unspecified organism (3) Anemia Anemia type: unspecified type Qualified Code(s): D64.9 - Anemia, unspecified
[2023-12-02] MEDS ORDERED: SODIUM CHLORIDE 0.9% 1,000 ML IV PRN (08:57)
[2023-12-02] MEDS: LANTUS PER UNIT CHARGE SQ SCH (09:59)
[2023-12-02] MEDS: INSULIN ASPART PER UNIT CHARGE SC SCH (09:59)
[2023-12-02] MEDS: METOPROLOL TARTRATE 50 MG TAB PO SCH (10:00)
--- NOTE | 2023-12-02 11:02 | Electrocardiogram Report ---
Test Reason : Blood Pressure : / mmHG Vent. Rate : 075 BPM Atrial Rate : 000 BPM P-R Int : 000 ms QRS Dur : 082 ms QT Int : 394 ms P-R-T Axes : 000 070 066 degrees QTc Int : 439 ms Atrial fibrillation Abnormal ECG When compared with ECG of 18-FEB-2023 16:21, Borderline criteria for Anterior infarct are no longer Present ST no longer depressed in Lateral leads Confirmed by Hayder Donald ([id number]) on 12/02/2023 11:01:32 AM Referred By: REFERRED SELF Confirmed By:Garo Donald
--- NOTE | 2023-12-02 11:34 | Hospitalist Progress Note ---
Date of Service December 02, 2023 Assessment & Plan (1) Hypoxia: Plan: 88-year-old male with a history of end-stage renal disease on hemodialysis, diabetes, COPD presenting with acute hypoxic respiratory failuresaturations of 86% in the ER requiring placement of supplemental O2. CXR: cardiomegaly with pulmonary edema, right small to moderate effusion right basilar prominent airspace consolidation - possible PNA - pt denies fever, chills, sweats. No leukocytosis. Procal 0.27 - plan to repeat CXR after dialysis - received zosyn in the ER, will defer further abx until repeat chest xray --> still concern for PNA, zosyn restarted BNP: 598 - pt anuric, so unable to use diuretics Continue supplemental oxygen prn, O2 > 90% - baselibe room air DuoNeb every 4 hours scheduled with albuterol as needed for shortness of breath or wheeze Nephrology consultation - HD today - BENJAMÍN with HD today - check CXR after dialysis PT/OT (2) ESRD needing dialysis: Plan: Patient receives hemodialysis q. Saturday/Saturday/Saturday. Last full session on Saturday. He is anuric. Has not missed dialysis sessions Nephrology consultation as above Will continue PhosLo and renal vitamins (3) Atrial fibrillation: Plan: Patient appears to be in atrial fibrillation. He reports he has been told he was in atrial fibrillation in the past Continue metoprolol No anticoagulation at this time -patient is high risk by [id number] score given advanced age and medical comorbidities, also at high risk for bleed given advanced age and history of renal disease and poorly controlled hypertension TSH ordered (4) T2DM (type 2 diabetes mellitus): Plan: Last hemoglobin A1c on record = 8.4 from 06/11/2022. Blood sugar elevated at present at 254 Lantus 30 units twice daily Insulin sliding scale Goal blood sugar [id number] Consistent carb diet as tolerated (5) CAD (coronary artery disease): (6) Hypertension: Plan: Blood pressure elevated at 160/75 at present Continue amlodipine Continue metoprolol (7) Dyslipidemia: Plan: Chronic. Continue pravastatin 40 mg p.m. Plan Dispo: continued inpatient stay DVT proh: heparin q12 Admission and Anticipated Discharge Date Admission Date: December 02, 2023 Supervising Physician Co-Signing Physician Notes Attending Attestation - Chart reviewed, care plan d/w JAMISON Bran. I agree w/ the gaitan components of her documentation. Pt with ESRD with volume overload. ?pneumonia process RLL. Agree w/ félix. Post-HD cxr today still with considerable RLL consolidative process. Chencho Rice MD Subjective Patient sitting on the side of the bed. Reports that he has felt well over the l ast week but the became short of breath. He called his grand daughter and she thought his anxiety may be worsening his shortness of breath. hx of anxiety attacks he lives home alone, and reports not sure how much longer he is going to be able to do this. Still drives but reports that he has to get a physical and eye test for PenDOt soon. Reports feeling weak. Uses a walker at baseline. Sleeps in a recliner. Review of Systems Review of Systems: All systems reviewed & are unremarkable except as noted in HPI & below Physical Exam Physical Exam: General: NAD, VS as above Resp: normal respiratory effort, diminished in bases , on 2L NC CV: RRR, no murmur, Abd: normal bowel sounds, non tender, mild distention Extremities: Moves all extremities, no edema - b/l LE compression stockings Neuro: A&O x3, Skin: intact, no lesions noted Results & Data Results & Data Vital Signs (Past 12 Hours) Vital Signs Temp Pulse Pulse Resp BP BP Pulse Ox 12/02/23 07:32 76 12/02/23 06:30 77 18 93 12/02/23 06:20 82 21 93 12/02/23 06:20 107 H 12/02/23 06:15 108 H 27 H 12/02/23 06:00 79 21 92 12/02/23 06:00 75 20 158/71 H 92 12/02/23 05:50 75 20 92 12/02/23 05:40 90 20 93 12/02/23 05:30 103 H 20 92 12/02/23 05:20 82 22 93 12/02/23 05:10 83 26 H 94 12/02/23 05:00 82 26 H 12/02/23 05:00 85 28 H 165/86 H 94 12/02/23 04:50 85 28 H 12/02/23 04:40 83 20 12/02/23 04:30 74 18 12/02/23 04:20 81 21 12/02/23 04:10 79 19 12/02/23 04:00 82 21 12/02/23 04:00 82 21 188/78 H 94 12/02/23 03:50 76 21 12/02/23 03:40 79 24 12/02/23 03:30 83 23 94 12/02/23 03:20 75 21 94 12/02/23 03:10 78 19 92 12/02/23 03:00 80 19 131/80 94 12/02/23 03:00 80 19 94 12/02/23 02:50 82 24 93 12/02/23 02:40 94 H 17 95 12/02/23 02:30 86 22 93 12/02/23 02:20 88 12/02/23 02:20 81 27 H 12/02/23 02:10 84 19 95 12/02/23 02:00 79 18 12/02/23 02:00 77 18 172/78 H 95 12/02/23 01:50 77 18 12/02/23 01:40 179/117 H 12/02/23 01:40 73 24 90 12/02/23 01:30 76 20 96 12/02/23 01:20 80 19 95 12/02/23 01:10 74 17 94 12/02/23 01:00 128/83 12/02/23 01:00 79 26 H 12/02/23 00:50 73 22 96 12/02/23 00:40 75 24 96 12/02/23 00:40 12/02/23 00:36 12/02/23 00:31 170/110 H 12/02/23 00:31 79 21 93 12/02/23 00:31 12/02/23 00:31 36.7 C 77 25 H 162/75 H 90 12/02/23 00:30 78 22 90 12/02/23 00:27 82 26 H 162/75 H 91 12/02/23 00:27 82 26 H 12/02/23 00:26 76 23 12/02/23 00:20 73 24 170/110 H 95 O2 Del Method O2 Flow Rate 12/02/23 04:00 Nasal Cannula 2 12/02/23 03:50 12/02/23 00:27 12/02/23 00:27 12/02/23 00:26 12/02/23 00:20 Nasal Cannula 2 PG Care Time/CCT Total # of Minutes Spent Total Time Spent with Patient: Total time spent is greater than 50% in coordination of care (as documented) at patient's floor/unit and/or counseling patient: Coding Level of Care Code None Diagnoses Hypoxia R09.02 ESRD needing dialysis N18.6; Z99.2 Atrial fibrillation I48.91 T2DM (type 2 diabetes mellitus) E11.9 CAD (coronary artery disease) I25.10 Hypertension I10 Dyslipidemia E78.5
--- NOTE | 2023-12-02 14:10 | Electrocardiogram Report ---
Test Reason : Blood Pressure : / mmHG Vent. Rate : 079 BPM Atrial Rate : 000 BPM P-R Int : 000 ms QRS Dur : 082 ms QT Int : 386 ms P-R-T Axes : 000 069 072 degrees QTc Int : 442 ms Atrial fibrillation Abnormal ECG When compared with ECG of 02-DEC-2023 00:34, No significant change was found Confirmed by Hayder Donald ([id number]) on 12/02/2023 2:09:59 PM Referred By: REFERRED SELF Confirmed By:Garo Donald
[2023-12-02] MEDS: EPOETIN ALFA 20,000 UNITS/ML VIAL IV SCH (14:19)
[2023-12-02] MEDS: HEPARIN SOD (PORCINE) 1000 UNIT/ML IV SCH (14:38)
[2023-12-02] MEDS: HEPARIN SOD (PORCINE) 1000 UNIT/ML IV ONE (14:38)
[2023-12-02] MEDS: CALCIUM ACETATE 667 MG CAP/TAB PO SCH (17:21)
--- NOTE | 2023-12-02 18:17 | XRay Report ---
XR chest 1V portable CLINICAL HISTORY: SOB, ?PNA TECHNIQUE: Single frontal radiograph of the chest was obtained. Comparison: Comparison is made to chest radiograph 12/02/2023 FINDINGS: No lines and tubes are seen. Cardiomegaly is noted. The aortic arch is calcified. There is prominence and cephalization of the vasculature with Betsy B lines seen. Right lower lobe airspace opacity is seen. Small bilateral pleural effusions are seen. IMPRESSION: 1. Cardiomegaly and moderate pulmonary edema. 2. Right lower lung airspace opacity may reflect atelectasis, pneumonia, and/or aspiration, slightly increased from prior exam. 3. Small bilateral pleural effusions. ACT 112: Negative or not required by law. Electronically signed by: Stan Stern M.D. 12/02/2023 6:15 PM
[2023-12-02] MEDS: PIPERACILLIN/TAZOBACTAM 4.5 GM in DEXTROSE 5% MINI-B 100 ML IV SCH (19:47)
[2023-12-02] MEDS: HEPARIN SOD 5,000 UNIT/0.5 ML VIAL SQ SCH (23:05)
[2023-12-02] MEDS: PRAVASTATIN SOD 40 MG TAB PO SCH (23:06)
[2023-12-03 06:15] LABS: Hematocrit (blood only) 30.5 % (42.0-52.0); Hemoglobin 9.6 g/dl (14.0-18.0); Mean Corpuscular Hemoglobin 30.5 pg (25.0-34.0); Mean Corpuscular Hgb Conc 31.5 g/dL (32.0-36.0); Mean Corpuscular Volume 96.8 fL (80.0-100.0); Mean Platelet Volume 10.6 fL (9.4-12.4); Platelet Count 82 K/uL (130-400); RDW Coefficient of Variation 16.1 % (11.5-14.5); RDW Standard Deviation 57.8 fL (36.4-46.3); Red Blood Count 3.15 M/uL (4.70-6.10); White Blood Count 4.82 K/ul (4.8-10.8)
[2023-12-03 06:22] LABS: Calcium 8.7 mg/dl (8.6-10.3); Potassium 3.7 mmol/L (3.5-5.1)
[2023-12-03 06:41] LABS: BUN Creatinine Ratio 4.8 (10-20); Creatinine Clr Calc Pharmacy 11.7 ml/min; Est GFR (African American) 10.9 ml/min; Est GFR (Non-African American) 9.4 ml/min; Phosphorus 3.7 mg/dl (2.5-4.9); Thyroid Stimulating Hormone 0.98 uIu/ml (0.300-4.500)
--- NOTE | 2023-12-03 08:15 | Hospitalist Progress Note ---
Date of Service December 03, 2023 Assessment & Plan (1) Hypoxia: Plan: 88-year-old male with a history of end-stage renal disease on hemodialysis, diabetes, COPD presenting with acute hypoxic respiratory failuresaturations of 86% in the ER requiring placement of supplemental O2. BNP: 598 - pt anuric, so unable to use diuretics CXR: cardiomegaly with pulmonary edema, right small to moderate effusion right basilar prominent airspace consolidation - possible PNA -However, pt denies fever, chills, sweats. No leukocytosis. Procal 0.27 -Given Zosyn IV in ER, repeat CXR w/ concerns for RLL opacity concerning for atelectasis/PNA/ and/or aspiration, increased from prior. Small b/l pleural effusions - Zosyn was resumed, but discontinued further for now. MRSA nares obtained, NEGATIVE Patient reports CLEAR sputum, inability to lay flat. No fever/chills. Suspect more from CHF s/p 4L w/ HD on 12/02, next treatment planned for 12/03 per patient/nephrology Supplemental O2 to maintain sats. Asked RN to provide incentive spirometer. Of note, patient w/ "anxiety" at baseline, however denied feeling palpitations. Patient told in past by some providers "has afib" and some "don't have afib". Discussed could be having paroxsymal atrial fibrillation - mag to be added to AM labs to ensure no deficiency w/ hypoxia/afib and replacement will be ordered if indicated Moving to monitored bed, consider event monitor at dc. 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 ?reason for volume overload if having afib/RVR? 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 Saturday/Saturday/Saturday. -Last full session on Saturday. He is anuric. Has not missed dialysis sessions Nephrology consulted s/p HD on 12/02 for 4L, additional HD planned for tomorrow Continue phoslo/renal supplements, appreciate recs/assistance from nephrology (3) Atrial fibrillation: Plan: Patient appears to be in atrial fibrillation. 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 Review of last cards note w/ prn lorazepam for sypmtoms w/ palpitations w/ resolution. Can reach out to Dr Glover if needed pending telemetry monitoring Moving to monitored bed. Keep k/mag repleted. Consider event monitor/continued discussions about anticoagulation. (4) T2DM (type 2 diabetes mellitus): Plan: Last hemoglobin A1c on record = 8.4 from 06/11/2022. Blood sugar to 250s on admit BSG AC/HS, lantus 30u BID (on 40u BID at home of 70/30) Glu 130 on AM labs but POC elveated to 215 this afternoon and will tighten SSI , consider increasing lantus to 35 BID Continue DM diet Monitor BSGs (5) CAD (coronary artery disease): Plan: Hx NSTEMI, chronic nonobstructive CAD continues on metoprolol BID, pravastatin Does not appear to be on ASA daily -- ?from hx of GI bleeding issues in the past (6) Hypertension: Plan: Blood pressure 143/65 Continue amlodipine (takes on non HD days at home) Continue metoprolol (7) Dyslipidemia: Plan: Chronic. Continue pravastatin 40 mg p.m. Plan Dispo: continued inpatient stay DVT proh: heparin q12 while inpatient moving to monitored bed Admission and Anticipated Discharge Date Admission Date: December 02, 2023 Supervising Physician Co-Signing Physician Notes The patient was not seen by me. The chart was reviewed. Case discussed with JAMISON Montoya. Agree with assessment and plan Subjective Evaluated this morning, sitting up in recliner chair. Reports breathing much improved, on 2L at present. Does endorse difficulty sleeping laying flat at baseline. gone !24 years but did tell him snoring in the past. He notes he has been told by doctors that he is in afib by some and then in normal by others. Discussed palpitations which he denies but he does endorse baseline anxiety symptoms at times, and could be related to underlying afib. Reports feeling pretty stable at present. +Cough, clear/white sputum, thick at times but no discoloration. Discussed dc further abx and will monitor but appears more related to volume overload but could also have some aspect of afib/elevated rates that put him here in the first place. Discussed repeating ECHO and moving to monitored bed. No CP/fever/chills reported. Good appetite. Lives alone and will see how he does w/ therapy. Questions/concerns addressed at this time. Physical Exam Physical Exam: General: 88yo male sitting up in recliner, on 2L NC, NAD HEENT: head atraumatic, normocephalic, +thick neck, trachea midline Resp: even/unlabored, no significant w/c/r, on 2L NC CV: irregularly irregular, rates 90s, no significant m/r/g, trace LE edema (stocking in place) +R arm AV fistula (+bruit) GI: +BS, soft/NT, slight distension : no cope MSK/Neuro: no focal deficits, no slurred speech, answering questions appropriate ly Psych: AOx3, cooperative with exam Results & Data Results & Data Vital Signs (Past 12 Hours) Vital Signs Temp Pulse Pulse Resp BP Pulse Ox O2 Del Method 12/03/23 07:52 Nasal Cannula 12/03/23 07:06 91 H 18 95 Nasal Cannula 12/03/23 06:57 36.5 C 99 H 18 143/65 H 96 Room Air 12/03/23 04:30 74 18 98 Nasal Cannula 12/03/23 00:45 60 16 96 Nasal Cannula 12/02/23 21:00 Nasal Cannula O2 Flow Rate 12/03/23 07:52 2 12/03/23 07:06 1 12/03/23 06:57 12/03/23 04:30 2 12/03/23 00:45 2 12/02/23 21:00 2 Laboratory Results 12/03/23 12/03/23 12/03/23 Range/Units 11:57 09:03 07:26 WBC (4.8-10.8) K/ul RBC (4.70-6.10) M/uL Hgb (14.0-18.0) g/dl Hct (42.0-52.0) % MCV (80.0-100.0) fL MCH (25.0-34.0) pg MCHC (32.0-36.0) g/dL RDW Std Deviation (36.4-46.3) fL RDW Coeff of Casandra (11.5-14.5) % Plt Count (130-400) K/uL MPV (9.4-12.4) fL Sodium (136-145) mmol/L Potassium (3.5-5.1) mmol/L Chloride (98-107) mmol/L Carbon Dioxide (21-32) mmol/L Anion Gap (3-11) BUN (6-23) mg/dl Creatinine (0.6-1.4) mg/dl Est Cr Clr Drug Dosing ml/min Est GFR ( Amer) ml/min Est GFR (Non-Af Amer) ml/min BUN/Creatinine Ratio (10-20) Glucose (70-99(Fasting)) mg/dl POC Glucose 215 H 137 H (70-99) mg/dl Calcium (8.6-10.3) mg/dl Phosphorus (2.5-4.9) mg/dl TSH (0.300-4.500) uIu/ml Nasal Screen MRSA (PCR) Negative (Negative) 12/03/23 12/02/23 12/02/23 Range/Units 05:35 22:33 17:57 WBC 4.82 (4.8-10.8) K/ul RBC 3.15 L (4.70-6.10) M/uL Hgb 9.6 L (14.0-18.0) g/dl Hct 30.5 L (42.0-52.0) % MCV 96.8 (80.0-100.0) fL MCH 30.5 (25.0-34.0) pg MCHC 31.5 L (32.0-36.0) g/dL RDW Std Deviation 57.8 H (36.4-46.3) fL RDW Coeff of Casandra 16.1 H (11.5-14.5) % Plt Count 82 L (130-400) K/uL MPV 10.6 (9.4-12.4) fL Sodium 137 (136-145) mmol/L Potassium 3.7 (3.5-5.1) mmol/L Chloride 102 (98-107) mmol/L Carbon Dioxide 26 (21-32) mmol/L Anion Gap 9 (3-11) BUN 24 H D (6-23) mg/dl Creatinine 5.02 H* D (0.6-1.4) mg/dl Est Cr Clr Drug Dosing 11.7 ml/min Est GFR ( Amer) 10.9 ml/min Est GFR (Non-Af Amer) 9.4 ml/min BUN/Creatinine Ratio 4.8 L (10-20) Glucose 130 H (70-99(Fasting)) mg/dl POC Glucose 189 H 127 H (70-99) mg/dl Calcium 8.7 (8.6-10.3) mg/dl Phosphorus 3.7 (2.5-4.9) mg/dl TSH 0.980 (0.300-4.500) uIu/ml Nasal Screen MRSA (PCR) (Negative) 12/02/23 12/02/23 Range/Units 15:50 12:22 WBC (4.8-10.8) K/ul RBC (4.70-6.10) M/uL Hgb (14.0-18.0) g/dl Hct (42.0-52.0) % MCV (80.0-100.0) fL MCH (25.0-34.0) pg MCHC (32.0-36.0) g/dL RDW Std Deviation (36.4-46.3) fL RDW Coeff of Casandra (11.5-14.5) % Plt Count (130-400) K/uL MPV (9.4-12.4) fL Sodium (136-145) mmol/L Potassium (3.5-5.1) mmol/L Chloride (98-107) mmol/L Carbon Dioxide (21-32) mmol/L Anion Gap (3-11) BUN (6-23) mg/dl Creatinine (0.6-1.4) mg/dl Est Cr Clr Drug Dosing ml/min Est GFR ( Amer) ml/min Est GFR (Non-Af Amer) ml/min BUN/Creatinine Ratio (10-20) Glucose (70-99(Fasting)) mg/dl POC Glucose 130 H 274 H (70-99) mg/dl Calcium (8.6-10.3) mg/dl Phosphorus (2.5-4.9) mg/dl TSH (0.300-4.500) uIu/ml Nasal Screen MRSA (PCR) (Negative) Diagnostic Findings Chest X-Ray 12/02/23 17:30 XR chest 1V portable CLINICAL HISTORY: SOB, ?PNA TECHNIQUE: Single frontal radiograph of the chest was obtained. Comparison: Comparison is made to chest radiograph 12/02/2023 FINDINGS: No lines and tubes are seen. Cardiomegaly is noted. The aortic arch is calcified. There is prominence and cephalization of the vasculature with Betsy B lines seen. Right lower lobe airspace opacity is seen. Small bilateral pleural effusions are seen. IMPRESSION: 1. Cardiomegaly and moderate pulmonary edema. 2. Right lower lung airspace opacity may reflect atelectasis, pneumonia, and/or aspiration, slightly increased from prior exam. 3. Small bilateral pleural effusions. ACT 112: Negative or not required by law. Electronically signed by: Stan Stern M.D. 12/02/2023 6:15 PM PG Care Time/CCT Total # of Minutes Spent Total Time Spent with Patient: Total time spent is greater than 50% in coordination of care (as documented) at patient's floor/unit and/or counseling patient: Coding Level of Care Code 94898 SUB INP/OBS CARE 3/50MIN Diagnoses Hypoxia R09.02 ESRD needing dialysis N18.6; Z99.2 Atrial fibrillation I48.91 T2DM (type 2 diabetes mellitus) E11.9 CAD (coronary artery disease) I25.10 Hypertension I10 Dyslipidemia E78.5
--- NOTE | 2023-12-03 08:43 | Nephrology Progress Note ---
Date of Service December 03, 2023 Assessment & Plan (1) ESRD needing dialysis: Plan: * Outpatient HD Rx: MWF at [facility] [place] - 4hr, 2K 2.5Ca F-180NR, EDW 90kg * HD completed yesterday for 4L UF. Volume status has improved. Electrolyte balance is acceptable. CXR shows persistent RLL infiltrate but improved vascular congestion. No acute indication for HD today. Will plan next treatment for am * HD diet, continue renal vitamin and phosphate binder (2) Pneumonia: Plan: * CXR w/ persistent RLL infiltrate * On IV Zosyn * Procalcitonin negative * Monitor temperature, respiratory symptoms (3) Anemia: Plan: * BENJAMÍN provided w/ HD * Monitor H&H (4) T2DM (type 2 diabetes mellitus): Plan: * Management as per hospitalist service Admission and Anticipated Discharge Date Admission Date: December 02, 2023 Subjective Mr. Madden was evaluated in his hospital room this morning. His breathing is subjectively improved. He received HD yesterday for 4L UF. There were no complications. He remains on O2 at 2L/min but voices no new medical concerns. Review of Systems Constitutional: no fever Eyes: no problem reported Ear, Nose, Mouth, Throat: no problem reported Respiratory: + dyspnea; no cough and no sputum produc tion Cardiovascular: no chest pain Gastrointestinal: no nausea, no vomiting and no diarrhea/loose stools Physical Exam Constitutional: + frail appearing; not in distress Eyes: PERRL, conjunctivae normal, anicteric sclerae ENMT: external ear and nose normal, oropharynx normal Neck: trachea midline, no thyromegaly Respiratory: normal respiratory effort, lungs clear to auscultation Cardiovascular: Rate/Rhythm: + irregularly irregular Extremities: + AV fistula (R BC AVF w/+ bruit); no edema Gastrointestinal (Abdomen): normal bowel sounds, soft, nontender, no hepatosplenomegaly Skin: no rashes, warm and dry Neurologic: awake; not confused Speech / Cognition: normal speech Psychiatric: Affect: euthymic affect Results & Data Vital Signs (Past 12 Hours) Vital Signs Temp Pulse Pulse Resp BP Pulse Ox O2 Del Method 12/03/23 07:52 Nasal Cannula 12/03/23 07:06 91 H 18 95 Nasal Cannula 12/03/23 06:57 36.5 C 99 H 18 143/65 H 96 Room Air 12/03/23 04:30 74 18 98 Nasal Cannula 12/03/23 00:45 60 16 96 Nasal Cannula 12/02/23 21:00 Nasal Cannula O2 Flow Rate 12/03/23 07:52 2 12/03/23 07:06 1 12/03/23 06:57 12/03/23 04:30 2 12/03/23 00:45 2 12/02/23 21:00 2 Laboratory Results Laboratory Results - last 24 hr 12/02/23 12/02/23 12/02/23 12:22 15:50 17:57 WBC RBC Hgb Hct MCV MCH MCHC RDW Std Deviation RDW Coeff of Casandra Plt Count MPV Sodium Potassium Chloride Carbon Dioxide Anion Gap BUN Creatinine Est Cr Clr Drug Dosing Est GFR ( Amer) Est GFR (Non-Af Amer) BUN/Creatinine Ratio Glucose POC Glucose 274 H 130 H 127 H Calcium Phosphorus TSH 12/02/23 12/03/23 12/03/23 22:33 05:35 07:26 WBC 4.82 RBC 3.15 L Hgb 9.6 L Hct 30.5 L MCV 96.8 MCH 30.5 MCHC 31.5 L RDW Std Deviation 57.8 H RDW Coeff of Casandra 16.1 H Plt Count 82 L MPV 10.6 Sodium 137 Potassium 3.7 Chloride 102 Carbon Dioxide 26 Anion Gap 9 BUN 24 H D Creatinine 5.02 H* D Est Cr Clr Drug Dosing 11.7 Est GFR ( Amer) 10.9 Est GFR (Non-Af Amer) 9.4 BUN/Creatinine Ratio 4.8 L Glucose 130 H POC Glucose 189 H 137 H Calcium 8.7 Phosphorus 3.7 TSH 0.980 Diagnostic Findings 12/02/23 CXR: Cardiomegaly is noted. The aortic arch is calcified. There is prominence and cephalization of the vasculature with Betsy B lines seen. Right lower lobe airspace opacity is seen. Small bilateral pleural effusions are seen. PG Care Time/CCT Total # of Minutes Spent Total Time Spent with Patient: Total time spent is greater than 50% in coordination of care (as documented) at patient's floor/unit and/or counseling patient: Coding Level of Care Code 73587 SUB INP/OBS CARE 3/50MIN Diagnoses ESRD needing dialysis N18.6; Z99.2 Pneumonia J18.9 Laterality: right Lung location: lower lobe of lung Pneumonia type: due to unspecified organism Anemia D64.9 Anemia type: unspecified type T2DM (type 2 diabetes mellitus) E11.9 (2) Pneumonia Laterality: right Lung location: lower lobe of lung Pneumonia type: due to unspecified organism Qualified Code(s): J18.9 - Pneumonia, unspecified organism (3) Anemia Anemia type: unspecified type Qualified Code(s): D64.9 - Anemia, unspecified
[2023-12-03] MEDS: amLODIPine BESYLATE 5 MG TAB PO SCH (08:51)
[2023-12-03] MEDS: NEPHROCAPS PO SCH (08:51)
[2023-12-04] MEDS ORDERED: SODIUM CHLORIDE 0.9% 1,000 ML IV PRN (07:00)
--- NOTE | 2023-12-04 07:41 | Hospitalist Progress Note ---
Date of Service December 04, 2023 Assessment & Plan (1) Hypoxia: Plan: 88-year-old male with a history of end-stage renal disease on hemodialysis, diabetes, COPD presenting with acute hypoxic respiratory failuresaturations of 86% in the ER requiring placement of supplemental O2. BNP: 598 - pt anuric, so unable to use diuretics CXR: cardiomegaly with pulmonary edema, right small to moderate effusion right basilar prominent airspace consolidation - possible PNA -However, pt denies fever, chills, sweats. No leukocytosis. Procal 0.27 -Given Zosyn IV in ER, repeat CXR w/ concerns for RLL opacity concerning for atelectasis/PNA/ and/or aspiration, increased from prior. Small b/l pleural effusions - Zosyn was resumed, but discontinued further for now. MRSA nares obtained, NEGATIVE Patient reports CLEAR sputum, inability to lay flat. No fever/chills. Suspect more from CHF, antibiotics DISCONTINUED s/p 4L w/ HD on 12/02 HD for today for 3L ECHO w/ normal LV systolic function. RV mildly dilated. RV systolic function normal. RA mild-moderately dilated. Aortic valve sclerosis moderate, without significant aortic valvular stenosis. Mild MR. RVSP elevated 50-60mmHg Overnight pulse ox ordered for tonight Supplemental O2 as needed to maintain sats Moved to telemetry 12/03 for afib -- rates have been controlled. Not on any anticoagulation due to hx radiation colitis/GI bleeding/GAVE and admissions for transfusions/bleeding and would NOT be safe at present time Duonebs changed to prn PT/OT consulted- suspect likely need for rehab DVT proph: Heparin SQ while inpatient , however has been declining. 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 Saturday/Saturday/Saturday. Last full session last saturday, anuric at baseline and had not missed HD sessions Nephrology consulted while inpatient s/p HD on 12/02 for 4L, additional HD for today for 3L as above Continue phoslo/renal supplements, appreciate recs/assistance from nephrology (3) Atrial fibrillation: Plan: Patient appears to be in atrial fibrillation. 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 Review of last cards note w/ prn lorazepam for symptoms w/ palpitations w/ resolution. Can reach out to Dr Glover if needed pending telemetry monitoring however appears significant bleeding risk. Moving to monitored bed as above, rates well controlled Keep k/mag repleted. (4) T2DM (type 2 diabetes mellitus): Plan: Last hemoglobin A1c on record = 8.4 from 06/11/2022. Blood sugar to 250s on admit BSG AC/HS, lantus 30u BID (on 40u BID at home of 70/30) SSI tightened 12/04, will loosen CR/CF given BSGs to 80s this afternoon and had a little SOB w/ HD. BP remained stable/no hypotension and SpO2 was in 90s Continue DM diet Monitor BSGs (5) CAD (coronary artery disease): Plan: Hx NSTEMI, chronic nonobstructive CAD continues on metoprolol BID, pravastatin Does not appear to be on ASA daily -- ?suspect from hx of GI bleeding issues in the past NO CHEST PAIN REPORTED Continued telemetry monitoring as above (6) Hypertension: Plan: Blood pressure 155/67 Continue amlodipine (takes on non HD days at home) Continue metoprolol (7) Dyslipidemia: Plan: Chronic. Continue pravastatin 40 mg p.m. (8) Venous stasis of both lower extremities: Plan: wraps removed last evening 12/04 chronic venous stasis b/l LE, also w/ sacral wound/ulceration. Does have some erythema but no overt tenderness patient reports having used some kind of cream at home to his legs no active drainage/able to culture at present time monitor for any evidence for cellulitis wound RN consulted, appreciate recs/assistance Diarrhea - reported some loose stools. Had been given abx. Cdiff/PCR checked, NEGATIVE. continue to monitor Plan Dispo: continued inpatient stay DVT proh: heparin q12 while inpatient DISCONTINUED given hx GI bleeding. EPO w/ HD per nephrology. SCDs added PT/OT consulted Admission and Anticipated Discharge Date Admission Date: December 03, 2023 Supervising Physician Co-Signing Physician Notes The patient was not seen by me. The chart was reviewed. Case discussed with JAMISON Montoya. Agree with assessment and plan Subjective Evaluated up in HD, doin well except felt a little short of breath. SpO2 was 93% but placed on 2L w/ SpO2 98% and continue for comfort but discussed can likely titrate off after removal of fluid. Planning for 3L. Denies any chest pain. Hx GIB and refusing heparin, ok per discussion. Wraps removed to b/l LE, some flaking/redness as well as sacral wound -- discussed wound RN to see. He mentioned his granddaughter puts the stockings on as he would be unable to do this at baseline. Discussed NO abx for pulmonary coverage and suspect cough/sputum clear in nature from volume overload. Will monitor legs for cellulitis but no tenderness at present time but does have some warmth. Decent appetite, looser stools this morning but negative stool testing. Will continue with therapy evals but discussed likely need for some rehab at [place]. Questions/concerns addressed at this time. Physical Exam Physical Exam: General: 88yo male sitting in bed in HD, NAD but 2L in place due to reported SOB HEENT: head atraumatic, normocephalic, +thick neck, trachea midline Resp: even/unlabored, no significant w/c/r, on 2L NC CV: irregularly irregular, rates 80s, +systolic murmur, trace LE edema-- some warmth/erythema, flaky of skin. slightly purplish in color however no overt tenderness +R arm AV fistula (+bruit) GI: +BS, soft/NT, slight distension : no cope MSK/Neuro: no focal deficits, no slurred speech, answering questions appropriately Psych: AOx3, cooperative with exam Results & Data Results & Data Vital Signs (Past 12 Hours) Vital Signs Temp Pulse Pulse Resp BP Pulse Ox O2 Del Method 12/04/23 07:00 88 12/04/23 03:10 36.6 C 88 18 171/75 H 92 Room Air 12/03/23 23:07 36.6 C 93 H 18 161/74 H 92 Room Air Laboratory Results 12/04/23 12/04/23 12/04/23 Range/Units 13:56 08:45 08:05 WBC (4.8-10.8) K/ul RBC (4.70-6.10) M/uL Hgb (14.0-18.0) g/dl Hct (42.0-52.0) % MCV (80.0-100.0) fL MCH (25.0-34.0) pg MCHC (32.0-36.0) g/dL RDW Std Deviation (36.4-46.3) fL RDW Coeff of Casandra (11.5-14.5) % Plt Count (130-400) K/uL MPV (9.4-12.4) fL Sodium (136-145) mmol/L Potassium (3.5-5.1) mmol/L Chloride (98-107) mmol/L Carbon Dioxide (21-32) mmol/L Anion Gap (3-11) BUN (6-23) mg/dl Creatinine (0.6-1.4) mg/dl Est Cr Clr Drug Dosing ml/min Est GFR ( Amer) ml/min Est GFR (Non-Af Amer) ml/min BUN/Creatinine Ratio (10-20) Glucose (70-99(Fasting)) mg/dl POC Glucose 80 71 (70-99) mg/dl Calcium (8.6-10.3) mg/dl Magnesium (1.7-2.4) mg/dl Vitamin B12 (180-914) pg/ml Stl C. cayetanensis PCR Not Detected (NotDetected) Stool Rotavirus A PCR Not Detected (NotDetected) Stl Adenov F 40/41 PCR Not Detected (NotDetected) Stool Astrovirus (PCR) Not Detected (NotDetected) Stool Campylobacter PCR Not Detected (NotDetected) Stl C. diff Tox B Gene Negative Cdiff Gene (Neg) Stool Cryptosporidium PCR Not Detected (NotDetected) Stl E.coli Shiga Tox PCR Not Detected (NotDetected) Stl Enterotoxigenic E PCR Not Detected (NotDetected) Stool EPEC (PCR) Not Detected (NotDetected) Stool EAEC (PCR) Not Detected (NotDetected) Stl E. histolytica PCR Not Detected (NotDetected) Stool Giardia Lamblia PCR Not Detected (NotDetected) Stool Salmonella PCR Not Detected (NotDetected) Stool Sapovirus (PCR) Not Detected (NotDetected) Stl P. shigelloides PCR Not Detected (NotDetected) Stl Shigella/EIEC PCR Not Detected (NotDetected) St Y.enterocolitica PCR Not Detected (NotDetected) Stool Vibrio (PCR) Not Detected (NotDetected) Stl Vibrio cholerae PCR Not Detected (NotDetected) Stl Norovirus GI/GII PCR Not Detected (NotDetected) 12/04/23 12/03/23 12/03/23 Range/Units 07:22 19:54 17:05 WBC 6.36 (4.8-10.8) K/ul RBC 3.58 L (4.70-6.10) M/uL Hgb 10.9 L (14.0-18.0) g/dl Hct 34.6 L (42.0-52.0) % MCV 96.6 (80.0-100.0) fL MCH 30.4 (25.0-34.0) pg MCHC 31.5 L (32.0-36.0) g/dL RDW Std Deviation 57.4 H (36.4-46.3) fL RDW Coeff of Casandra 16.0 H (11.5-14.5) % Plt Count 97 L (130-400) K/uL MPV 10.7 (9.4-12.4) fL Sodium 139 (136-145) mmol/L Potassium 3.6 (3.5-5.1) mmol/L Chloride 101 (98-107) mmol/L Carbon Dioxide 28 (21-32) mmol/L Anion Gap 10 (3-11) BUN 38 H (6-23) mg/dl Creatinine 6.90 H* D (0.6-1.4) mg/dl Est Cr Clr Drug Dosing 8.1 ml/min Est GFR ( Amer) 7.5 ml/min Est GFR (Non-Af Amer) 6.4 ml/min BUN/Creatinine Ratio 5.5 L (10-20) Glucose 65 L (70-99(Fasting)) mg/dl POC Glucose 100 H 117 H (70-99) mg/dl Calcium 9.1 (8.6-10.3) mg/dl Magnesium 2.3 (1.7-2.4) mg/dl Vitamin B12 353 (180-914) pg/ml Stl C. cayetanensis PCR (NotDetected) Stool Rotavirus A PCR (NotDetected) Stl Adenov F 40/41 PCR (NotDetected) Stool Astrovirus (PCR) (NotDetected) Stool Campylobacter PCR (NotDetected) Stl C. diff Tox B Gene (Neg) Stool Cryptosporidium PCR (NotDetected) Stl E.coli Shiga Tox PCR (NotDetected) Stl Enterotoxigenic E PCR (NotDetected) Stool EPEC (PCR) (NotDetected) Stool EAEC (PCR) (NotDetected) Stl E. histolytica PCR (NotDetected) Stool Giardia Lamblia PCR (NotDetected) Stool Salmonella PCR (NotDetected) Stool Sapovirus (PCR) (NotDetected) Stl P. shigelloides PCR (NotDetected) Stl Shigella/EIEC PCR (NotDetected) St Y.enterocolitica PCR (NotDetected) Stool Vibrio (PCR) (NotDetected) Stl Vibrio cholerae PCR (NotDetected) Stl Norovirus GI/GII PCR (NotDetected) 12/03/23 Range/Units 15:32 WBC (4.8-10.8) K/ul RBC (4.70-6.10) M/uL Hgb (14.0-18.0) g/dl Hct (42.0-52.0) % MCV (80.0-100.0) fL MCH (25.0-34.0) pg MCHC (32.0-36.0) g/dL RDW Std Deviation (36.4-46.3) fL RDW Coeff of Casandra (11.5-14.5) % Plt Count (130-400) K/uL MPV (9.4-12.4) fL Sodium (136-145) mmol/L Potassium (3.5-5.1) mmol/L Chloride (98-107) mmol/L Carbon Dioxide (21-32) mmol/L Anion Gap (3-11) BUN (6-23) mg/dl Creatinine (0.6-1.4) mg/dl Est Cr Clr Drug Dosing ml/min Est GFR ( Amer) ml/min Est GFR (Non-Af Amer) ml/min BUN/Creatinine Ratio (10-20) Glucose (70-99(Fasting)) mg/dl POC Glucose (70-99) mg/dl Calcium (8.6-10.3) mg/dl Magnesium 2.2 (1.7-2.4) mg/dl Vitamin B12 (180-914) pg/ml Stl C. cayetanensis PCR (NotDetected) Stool Rotavirus A PCR (NotDetected) Stl Adenov F 40/41 PCR (NotDetected) Stool Astrovirus (PCR) (NotDetected) Stool Campylobacter PCR (NotDetected) Stl C. diff Tox B Gene (Neg) Stool Cryptosporidium PCR (NotDetected) Stl E.coli Shiga Tox PCR (NotDetected) Stl Enterotoxigenic E PCR (NotDetected) Stool EPEC (PCR) (NotDetected) Stool EAEC (PCR) (NotDetected) Stl E. histolytica PCR (NotDetected) Stool Giardia Lamblia PCR (NotDetected) Stool Salmonella PCR (NotDetected) Stool Sapovirus (PCR) (NotDetected) Stl P. shigelloides PCR (NotDetected) Stl Shigella/EIEC PCR (NotDetected) St Y.enterocolitica PCR (NotDetected) Stool Vibrio (PCR) (NotDetected) Stl Vibrio cholerae PCR (NotDetected) Stl Norovirus GI/GII PCR (NotDetected) PG Care Time/CCT Total # of Minutes Spent Total Time Spent with Patient: Total time spent is greater than 50% in coordination of care (as documented) at patient's floor/unit and/or counseling patient: Coding Level of Care Code 77964 SUB INP/OBS CARE 3/50MIN Diagnoses Hypoxia R09.02 ESRD needing dialysis N18.6; Z99.2 Atrial fibrillation I48.91 T2DM (type 2 diabetes mellitus) E11.9 CAD (coronary artery disease) I25.10 Hypertension I10 Dyslipidemia E78.5 Venous stasis of both lower extremities I87.8
[2023-12-04 08:17] LABS: Hematocrit (blood only) 34.6 % (42.0-52.0); Hemoglobin 10.9 g/dl (14.0-18.0); Mean Corpuscular Hemoglobin 30.4 pg (25.0-34.0); Mean Corpuscular Hgb Conc 31.5 g/dL (32.0-36.0); Mean Corpuscular Volume 96.6 fL (80.0-100.0); Mean Platelet Volume 10.7 fL (9.4-12.4); Platelet Count 97 K/uL (130-400); RDW Standard Deviation 57.4 fL (36.4-46.3); Red Blood Count 3.58 M/uL (4.70-6.10); White Blood Count 6.36 K/ul (4.8-10.8)
[2023-12-04 08:45] LABS: BUN Creatinine Ratio 5.5 (10-20); Calcium 9.1 mg/dl (8.6-10.3); Creatinine Clr Calc Pharmacy 8.1 ml/min; Est GFR (African American) 7.5 ml/min; Est GFR (Non-African American) 6.4 ml/min; Magnesium 2.3 mg/dl (1.7-2.4); Potassium 3.6 mmol/L (3.5-5.1)
--- NOTE | 2023-12-04 08:55 | Nephrology Progress Note ---
Date of Service December 04, 2023 Assessment & Plan (1) ESRD needing dialysis: Plan: * Outpatient HD Rx: MWF at [facility] [place] - 4hr, 2K 2.5Ca F-180NR, EDW 90kg * Will provide heparin free HD today. Orders have been entered in EMR and HD RN notified * HD diet, continue renal vitamin and phosphate binder (2) Pneumonia: Plan: * CXR improved following UF w/ HD. RLL infiltrate reported * Patient is afebrile without leukocytosis. Procalcitonin is negative. Zosyn has been stopped * Monitor temperature, respiratory symptoms (3) Anemia: Plan: * Will provide BENJAMÍN w/ HD * Monitor H&H (4) T2DM (type 2 diabetes mellitus): Plan: * Management as per hospitalist service (5) Diarrhea: Plan: * 12/04/23 stool biofire - negative Admission and Anticipated Discharge Date Admission Date: December 03, 2023 Subjective Mr. Madden was evaluated in his hospital room this morning. He was breathing comfortably on RA. Mr. Madden reports diarrhea overnight. He declined SQ heparin due to h/o radiation colitis and prior episodes of LGI bleeding. Mr. Madden reports that an echocardiogram was completed this morning. Review of Systems Constitutional: no fever Eyes: no problem reported Ear, Nose, Mouth, Throat: no problem reported Respiratory: no dyspnea Cardiovascular: no chest pain Gastrointestinal: + diarrhea/loose stools; no nausea and n o vomiting Physical Exam Constitutional: + frail appearing; not in distress Eyes: PERRL, conjunctivae normal, anicteric sclerae ENMT: external ear and nose normal, oropharynx normal Neck: trachea midline, no thyromegaly Respiratory: normal respiratory effort, lungs clear to auscultation Cardiovascular: RRR, no murmur, no edema Rate/Rhythm: regular rhythm Extremities: + AV fistula (R BC AVF w/+ bruit); no edema Gastrointestinal (Abdomen): normal bowel sounds, soft, nontender, no hepatosplenomegaly Skin: no rashes, warm and dry Neurologic: awake; not confused Speech / Cognition: normal speech Psychiatric: Affect: euthymic affect Results & Data Vital Signs (Past 12 Hours) Vital Signs Temp Pulse Pulse Resp BP Pulse Ox O2 Del Method 12/04/23 08:05 86 12/04/23 07:56 36.6 C 58 L 18 168/79 H 94 Room Air 12/04/23 07:00 88 12/04/23 03:10 36.6 C 88 18 171/75 H 92 Room Air 12/03/23 23:07 36.6 C 93 H 18 161/74 H 92 Room Air Laboratory Results Laboratory Results - last 24 hr 12/03/23 12/03/23 12/03/23 05:35 09:03 11:57 WBC RBC Hgb Hct MCV MCH MCHC RDW Std Deviation RDW Coeff of Casandra Plt Count MPV Sodium Potassium Chloride Carbon Dioxide Anion Gap BUN Creatinine Est Cr Clr Drug Dosing Est GFR ( Amer) Est GFR (Non-Af Amer) BUN/Creatinine Ratio Glucose POC Glucose 215 H Calcium Magnesium 2.0 Vitamin B12 Nasal Screen MRSA (PCR) Negative 12/03/23 12/03/23 12/03/23 15:32 17:05 19:54 WBC RBC Hgb Hct MCV MCH MCHC RDW Std Deviation RDW Coeff of Casandra Plt Count MPV Sodium Potassium Chloride Carbon Dioxide Anion Gap BUN Creatinine Est Cr Clr Drug Dosing Est GFR ( Amer) Est GFR (Non-Af Amer) BUN/Creatinine Ratio Glucose POC Glucose 117 H 100 H Calcium Magnesium 2.2 Vitamin B12 Nasal Screen MRSA (PCR) 12/04/23 12/04/23 07:22 08:05 WBC 6.36 RBC 3.58 L Hgb 10.9 L Hct 34.6 L MCV 96.6 MCH 30.4 MCHC 31.5 L RDW Std Deviation 57.4 H RDW Coeff of Casandra 16.0 H Plt Count 97 L MPV 10.7 Sodium 139 Potassium 3.6 Chloride 101 Carbon Dioxide 28 Anion Gap 10 BUN 38 H Creatinine 6.90 H* D Est Cr Clr Drug Dosing 8.1 Est GFR ( Amer) 7.5 Est GFR (Non-Af Amer) 6.4 BUN/Creatinine Ratio 5.5 L Glucose 65 L POC Glucose 71 Calcium 9.1 Magnesium 2.3 Vitamin B12 Pending Nasal Screen MRSA (PCR) PG Care Time/CCT Total # of Minutes Spent Total Time Spent with Patient: Total time spent is greater than 50% in coordination of care (as documented) at patient's floor/unit and/or counseling patient: Coding Level of Care Code 52795 SUB INP/OBS CARE 3/50MIN Diagnoses ESRD needing dialysis N18.6; Z99.2 Pneumonia J18.9 Laterality: right Lung location: lower lobe of lung Pneumonia type: due to unspecified organism Anemia D64.9 Anemia type: unspecified type T2DM (type 2 diabetes mellitus) E11.9 Diarrhea R19.7 (2) Pneumonia Laterality: right Lung location: lower lobe of lung Pneumonia type: due to unspecified organism Qualified Code(s): J18.9 - Pneumonia, unspecified organism (3) Anemia Anemia type: unspecified type Qualified Code(s): D64.9 - Anemia, unspecified
[2023-12-04 10:24] LABS: Adenovirus F 40/41 PCR Not Detected (NotDetected); Astrovirus PCR Not Detected (NotDetected); Campylobacter PCR Not Detected (NotDetected); Cryptosporidium PCR Not Detected (NotDetected); Cyclospora cayetanensis PCR Not Detected (NotDetected); Entamoeba histolytica PCR Not Detected (NotDetected); Enteroaggregative E.coli(EAEC) Not Detected (NotDetected); Enteropathogenic E.coli (EPEC) Not Detected (NotDetected); Enterotoxigenic E.coli (ETEC) Not Detected (NotDetected); Giardia lamblia PCR Not Detected (NotDetected); Norovirus GI/GII PCR Not Detected (NotDetected); Plesiomonas shigelloides PCR Not Detected (NotDetected); Rotavirus A PCR Not Detected (NotDetected); Salmonella PCR Not Detected (NotDetected); Sapovirus PCR Not Detected (NotDetected); Shiga-like Toxin E.coli (STEC) Not Detected (NotDetected); Shigella/Enteroinvasive E.coli Not Detected (NotDetected); Vibrio cholerae PCR Not Detected (NotDetected); Vibrio species PCR Not Detected (NotDetected); Yersinia enterocolitica PCR Not Detected (NotDetected)
[2023-12-04] MEDS: EPOETIN ALFA 10,000 UNITS/ML VIAL IV ONE (11:45)
--- NOTE | 2023-12-04 12:13 | XCELERA ---
[id number]
[2023-12-04] MEDS: HEPARIN SOD (PORCINE) 1000 UNIT/ML IV SCH (13:57)
[2023-12-04] MEDS: HEPARIN SOD (PORCINE) 1000 UNIT/ML IV ONE (13:57)
[2023-12-05 07:12] LABS: Hematocrit (blood only) 33.5 % (42.0-52.0); Hemoglobin 10.3 g/dl (14.0-18.0); Mean Corpuscular Hemoglobin 30.5 pg (25.0-34.0); Mean Corpuscular Hgb Conc 30.7 g/dL (32.0-36.0); Mean Corpuscular Volume 99.1 fL (80.0-100.0); Mean Platelet Volume 10.2 fL (9.4-12.4); Platelet Count 111 K/uL (130-400); RDW Coefficient of Variation 16.3 % (11.5-14.5); RDW Standard Deviation 58.5 fL (36.4-46.3); Red Blood Count 3.38 M/uL (4.70-6.10); White Blood Count 5.17 K/ul (4.8-10.8)
[2023-12-05 07:30] LABS: BUN Creatinine Ratio 5.5 (10-20); Calcium 8.8 mg/dl (8.6-10.3); Creatinine Clr Calc Pharmacy 10.7 ml/min; Est GFR (African American) 10.8 ml/min; Est GFR (Non-African American) 9.4 ml/min; Magnesium 2.1 mg/dl (1.7-2.4); Potassium 3.6 mmol/L (3.5-5.1)
--- NOTE | 2023-12-05 07:40 | Hospitalist Progress Note ---
Date of Service December 05, 2023 Assessment & Plan (1) Hypoxia: Plan: 88-year-old male with a history of end-stage renal disease on hemodialysis, diabetes, COPD presenting with acute hypoxic respiratory failuresaturations of 86% in the ER requiring placement of supplemental O2. Acute HFpEF in setting of cardiorenal syndrome in patient with hx ESRD on HD/anuric at baseline w/ increased O2 needs/pulmonary edema on exam BNP: 598 - pt anuric, so unable to use diuretics CXR: cardiomegaly with pulmonary edema, right small to moderate effusion right basilar prominent airspace consolidation - possible PNA -However, pt denies fever, chills, sweats. No leukocytosis. Procal 0.27 -Given Zosyn IV in ER, repeat CXR w/ concerns for RLL opacity concerning for atelectasis/PNA/ and/or aspiration, increased from prior. Small b/l pleural effusions - Zosyn was resumed, but discontinued further for now. MRSA nares obtained, NEGATIVE Patient reports CLEAR sputum, inability to lay flat. No fever/chills. Suspect more from CHF, antibiotics DISCONTINUED ECHO w/ normal LV systolic function. RV mildly dilated. RV systolic function normal. RA mild-moderately dilated. Aortic valve sclerosis moderate, without significant aortic valvular stenosis. Mild MR. RVSP elevated 50-60mmHg s/p 4L w/ HD on 12/02, 3L on 12/04 Duonebs prn Incentive spirometry On ROOM AIR, 92% Overnight pulse ox study completed Remains rate controlled w/ his afib, not able to tolerate AC due to hx radiation colitis/GI bleeding/GAVE PT/OT consulted- suspect likely need for rehab DVT proph: Heparin SQ while inpatient , however has been declining. SCDs ordered in meantime Monitor labs/exam on repeat *Of note, patient w/ hx chronic cystic/bullous lung disease along w/ pulmonary nodules per PCP note, no longer wanted to follow with pulmonology (2) ESRD needing dialysis: Plan: Patient receives hemodialysis q. Saturday/Saturday/Saturday. Last full session last saturday, anuric at baseline and had not missed HD sessions Nephrology consulted while inpatient s/p HD on 12/02 for 4L, additional HD for today for 3L as above Continue phoslo/renal supplements, appreciate recs/assistance from nephrology (3) Atrial fibrillation: Plan: Patient appears to be in atrial fibrillation. He reports he has been told he was in atrial fibrillation in the past Continue metoprolol tartrate 50mg BID TSH ordered, wnl No anticoagulation at this time -patient is high risk by [id number] score given advanced age and medical comorbidities, also at high risk for bleed given advanced age and history of renal disease and poorly controlled hypertension Does appear to have hx of LGIB/GAVE/raditation colitis in the past. Review of last cards note w/ prn lorazepam for symptoms w/ palpitations w/ resolution. Can reach out to Dr Glover if needed pending telemetry monitoring however appears significant bleeding risk. Moving to monitored bed as above, rates well controlled Keep k/mag repleted. (4) T2DM (type 2 diabetes mellitus): Plan: Last hemoglobin A1c on record = 8.4 from 06/11/2022. Blood sugar to 250s on admit BSG AC/HS, lantus 30u BID (on 40u BID at home of 70/30) SSI tightened 12/04, will loosen CR/CF given BSGs to 80s in afternoon and had a little SOB w/ HD.(BP remained stable/no hypotension and SpO2 was in mid 90s) AM Glu only 62 12/05, will decrease lantus to 25u BID and continue SSI/adjustment as needed Continue DM diet Monitor BSGs (5) CAD (coronary artery disease): Plan: Hx NSTEMI, chronic nonobstructive CAD continues on metoprolol BID, pravastatin Does not appear to be on ASA daily -- ?suspect from hx of GI bleeding issues in the past NO CHEST PAIN REPORTED Continued telemetry monitoring as above (6) Hypertension: Plan: Blood pressure 155/67 Continue amlodipine (takes on non HD days at home) Continue metoprolol (7) Dyslipidemia: Plan: Chronic. Continue pravastatin 40 mg p.m. (8) Venous stasis of both lower extremities: Plan: wraps removed last evening 12/04 chronic venous stasis b/l LE, also w/ sacral wound/ulceration. Does have some erythema but no overt tenderness patient reports having used some kind of cream at home to his legs no active drainage/able to culture at present time monitor for any evidence for cellulitis wound RN consulted, appreciate recs/assistance Diarrhea - reported some loose stools. Had been given abx. Cdiff/PCR checked, NEGATIVE. continue to monitor Plan Dispo: continued inpatient stay DVT proh: heparin q12 while inpatient DISCONTINUED given hx GI bleeding. EPO w/ HD per nephrology. SCDs added PT/OT consulted Admission and Anticipated Discharge Date Admission Date: December 03, 2023 Results & Data Results & Data Vital Signs (Past 12 Hours) Vital Signs Temp Pulse Pulse Resp BP Pulse Ox Pulse Ox 12/05/23 07:30 36.7 C 75 152/55 H 92 12/05/23 05:53 86 93 12/05/23 03:12 36.7 C 78 18 154/55 H 92 12/05/23 02:55 83 93 12/05/23 00:15 74 92 12/04/23 22:54 36.7 C 74 18 138/53 L 92 12/04/23 19:56 36.7 C 79 18 156/63 H 92 O2 Del Method O2 Del Method 12/05/23 07:30 Room Air 12/05/23 05:53 Room Air 12/05/23 03:12 Room Air 12/05/23 02:55 Room Air 12/05/23 00:15 Room Air 12/04/23 22:54 Room Air 12/04/23 19:56 Room Air PG Care Time/CCT Total # of Minutes Spent Total Time Spent with Patient: Total time spent is greater than 50% in coordination of care (as documented) at patient's floor/unit and/or counseling patient: Coding Diagnoses Hypoxia R09.02 ESRD needing dialysis N18.6; Z99.2 Atrial fibrillation I48.91 T2DM (type 2 diabetes mellitus) E11.9 CAD (coronary artery disease) I25.10 Hypertension I10 Dyslipidemia E78.5 Venous stasis of both lower extremities I87.8
[2023-12-05] MEDS: CARBOHYDRATES FOR HYPOGLYCEMIA PO PRN (08:24)
--- NOTE | 2023-12-05 08:40 | Nephrology Progress Note ---
Date of Service December 05, 2023 Assessment & Plan (1) ESRD needing dialysis: Plan: * Outpatient HD Rx: MWF at [facility] [place] - 4hr, 2K 2.5Ca F-180NR, EDW 90kg * Volume status and electrolyte balance are acceptable. No acute indication for HD today * HD diet, continue renal vitamin and phosphate binder (2) Pneumonia: Plan: * 12/04/23 CXR shows improvement in vascular congestion, but small R effusion * Patient is afebrile without leukocytosis. Procalcitonin is negative. Zosyn has been stopped * Monitor temperature, respiratory symptoms (3) Anemia: Plan: * Hgb 10.3. Continue BENJAMÍN w/ HD (4) T2DM (type 2 diabetes mellitus): Plan: * Management as per hospitalist service (5) Diarrhea: Plan: * 12/04/23 stool biofire - negative Admission and Anticipated Discharge Date Admission Date: December 03, 2023 Subjective Mr. Madden was evaluated in his hospital room this morning. He was dialyzed yesterday for 3 L UF. There were no complications. RA SaO2 was 93% following treatment. He reports that his diarrhea has markedly improved Review of Systems Constitutional: no fever Eyes: no problem reported Ear, Nose, Mouth, Throat: no problem reported Respiratory: no dyspnea Cardiovascular: no chest pain Gastrointestinal: no nausea, no vomiting and no diarrhea/loose stools Physical Exam Constitutional: + frail appearing; not in distress Eyes: PERRL, conjunctivae normal, anicteric sclerae ENMT: external ear and nose normal, oropharynx normal Neck: trachea midline, no thyromegaly Respiratory: normal respiratory effort, lungs clear to auscultation Cardiovascular: RRR, no murmur, no edema Rate/Rhythm: regular rhythm and + irregularly irregular Extremities: + AV fistula (R BC AVF w/+ bruit); no edema Gastrointestinal (Abdomen): normal bowel sounds, soft, nontender, no hepatosplenomegaly Skin: no rashes, warm and dry Neurologic: awake; not confused Speech / Cognition: normal speech Psychiatric: Affect: euthymic affect Results & Data Vital Signs (Past 12 Hours) Vital Signs Temp Pulse Pulse Resp BP Pulse Ox Pulse Ox 12/05/23 07:30 36.7 C 75 152/55 H 92 12/05/23 05:53 86 93 02/22/24 03:12 36.7 C 78 18 154/55 H 92 12/05/23 02:55 83 93 12/05/23 00:15 74 92 12/04/23 22:54 36.7 C 74 18 138/53 L 92 O2 Del Method O2 Del Method 12/05/23 07:30 Room Air 12/05/23 05:53 Room Air 12/05/23 03:12 Room Air 12/05/23 02:55 Room Air 12/05/23 00:15 Room Air 12/04/23 22:54 Room Air Laboratory Results Laboratory Results - last 24 hr 12/04/23 12/04/23 12/04/23 07:22 08:45 13:56 WBC RBC Hgb Hct MCV MCH MCHC RDW Std Deviation RDW Coeff of Casandra Plt Count MPV Sodium 139 Potassium 3.6 Chloride 101 Carbon Dioxide 28 Anion Gap 10 BUN 38 H Creatinine 6.90 H* D Est Cr Clr Drug Dosing 8.1 Est GFR ( Amer) 7.5 Est GFR (Non-Af Amer) 6.4 BUN/Creatinine Ratio 5.5 L Glucose 65 L POC Glucose 80 Calcium 9.1 Magnesium 2.3 Vitamin B12 353 Stl C. cayetanensis PCR Not Detected Stool Rotavirus A PCR Not Detected Stl Adenov F 40/41 PCR Not Detected Stool Astrovirus (PCR) Not Detected Stool Campylobacter PCR Not Detected Stl C. diff Tox B Gene Negative Cdiff Gene Stool Cryptosporidium PCR Not Detected Stl E.coli Shiga Tox PCR Not Detected Stl Enterotoxigenic E PCR Not Detected Stool EPEC (PCR) Not Detected Stool EAEC (PCR) Not Detected Stl E. histolytica PCR Not Detected Stool Giardia Lamblia PCR Not Detected Stool Salmonella PCR Not Detected Stool Sapovirus (PCR) Not Detected Stl P. shigelloides PCR Not Detected Stl Shigella/EIEC PCR Not Detected St Y.enterocolitica PCR Not Detected Stool Vibrio (PCR) Not Detected Stl Vibrio cholerae PCR Not Detected Stl Norovirus GI/GII PCR Not Detected 12/04/23 12/04/23 12/05/23 17:10 19:54 06:31 WBC 5.17 RBC 3.38 L Hgb 10.3 L Hct 33.5 L MCV 99.1 MCH 30.5 MCHC 30.7 L RDW Std Deviation 58.5 H RDW Coeff of Casandra 16.3 H Plt Count 111 L MPV 10.2 Sodium 139 Potassium 3.6 Chloride 105 Carbon Dioxide 27 Anion Gap 7 BUN 28 H Creatinine 5.06 H* D Est Cr Clr Drug Dosing 10.7 Est GFR ( Amer) 10.8 Est GFR (Non-Af Amer) 9.4 BUN/Creatinine Ratio 5.5 L Glucose 62 L POC Glucose 146 H 93 Calcium 8.8 Magnesium 2.1 Vitamin B12 Stl C. cayetanensis PCR Stool Rotavirus A PCR Stl Adenov F PCR Stool Astrovirus (PCR) Stool Campylobacter PCR Stl C. diff Tox B Gene Stool Cryptosporidium PCR Stl E.coli Shiga Tox PCR Stl Enterotoxigenic E PCR Stool EPEC (PCR) Stool EAEC (PCR) Stl E. histolytica PCR Stool Giardia Lamblia PCR Stool Salmonella PCR Stool Sapovirus (PCR) Stl P. shigelloides PCR Stl Shigella/EIEC PCR St Y.enterocolitica PCR Stool Vibrio (PCR) Stl Vibrio cholerae PCR Stl Norovirus GI/GII PCR 12/05/23 12/05/23 08:16 08:18 WBC RBC Hgb Hct MCV MCH MCHC RDW Std Deviation RDW Coeff of Casandra Plt Count MPV Sodium Potassium Chloride Carbon Dioxide Anion Gap BUN Creatinine Est Cr Clr Drug Dosing Est GFR ( Amer) Est GFR (Non-Af Amer) BUN/Creatinine Ratio Glucose POC Glucose 55 L* 61 L* Calcium Magnesium Vitamin B12 Stl C. cayetanensis PCR Stool Rotavirus A PCR Stl Adenov F PCR Stool Astrovirus (PCR) Stool Campylobacter PCR Stl C. diff Tox B Gene Stool Cryptosporidium PCR Stl E.coli Shiga Tox PCR Stl Enterotoxigenic E PCR Stool EPEC (PCR) Stool EAEC (PCR) Stl E. histolytica PCR Stool Giardia Lamblia PCR Stool Salmonella PCR Stool Sapovirus (PCR) Stl P. shigelloides PCR Stl Shigella/EIEC PCR St Y.enterocolitica PCR Stool Vibrio (PCR) Stl Vibrio cholerae PCR Stl Norovirus GI/GII PCR Diagnostic Findings 12/04/22 Echocardiogram: LVEF 60-65%, mild LVH, mild MR, normal RV systolic function, RVSP 50-60 mm Hg PG Care Time/CCT Total # of Minutes Spent Total Time Spent with Patient: Total time spent is greater than 50% in coordination of care (as documented) at patient's floor/unit and/or counseling patient: Coding Level of Care Code 24162 SUB INP/OBS CARE 3/50MIN Diagnoses ESRD needing dialysis N18.6; Z99.2 Pneumonia J18.9 Laterality: right Lung location: lower lobe of lung Pneumonia type: due to unspecified organism Anemia D64.9 Anemia type: unspecified type T2DM (type 2 diabetes mellitus) E11.9 Diarrhea R19.7 (2) Pneumonia Laterality: right Lung location: lower lobe of lung Pneumonia type: due to unspecified organism Qualified Code(s): J18.9 - Pneumonia, unspecified organism (3) Anemia Anemia type: unspecified type Qualified Code(s): D64.9 - Anemia, unspecified
[2023-12-05] MEDS: LANTUS PER UNIT CHARGE SQ SCH (08:54)
[2023-12-05] MEDS ORDERED: LANTUS PER UNIT CHARGE SQ SCH (09:00)
--- NOTE | 2023-12-05 10:32 | Discharge Summary ---
Date of Service December 05, 2023 Admission HPI Per Admitting Provider Isidro Madden is a pleasant 88-year-old male with multiple medical comorbidities to include ESRD on hemodialysis Saturday/Saturday/Saturday, diabetes, hyperlipidemia and COPD presenting from home with several days of shortness of breath. Patient reports he has a difficult time catching his breath and also feels "fullness in his chest". He has not been coughing. Denies chest pain or palpitations. Denies fevers, chills or sweats no report of worsening edema, no recent URI symptoms. No abdominal pain, nausea or vomiting. Patient had his last dialysis session on Saturdaycomplete session with over 2 L of fluid removal. Patient does not make urine In the ER he is afebrile, hypertensive, hypoxic on room air to 86%. Patient does not wear supplemental oxygen at home. He was placed on 2 L with improvement to the low 90s. ER course: Zosyn Albuterol neb Principal Diagnosis Acute on chronic HFpEF in setting of cardiorenal syndrome Discharge Exam General: 88yo male sitting up in recliner, appears much improved, on ROOM air, 97% HEENT: head atraumatic, normocephalic, +thick neck, trachea midline Resp: even/unlabored, no significant w/c/r, on ROOM AIR CV: irregularly irregular, rates 80s, +systolic murmur, trace LE edema-- some rubor/ slightly purplish in color, , flaky of skin. NO tenderness, no open are as/drainage +R arm AV fistula (+bruit) GI: +BS, soft/NT, slight distension : no cope MSK/Neuro: no focal deficits, no slurred speech, answering questions appropriately Psych: AOx3, cooperative with exam Discharge Data Allergies Allergy/AdvReac Type Severity Reaction Status Date / Time clarithromycin AdvReac Intermediate confusion Verified 07/09/23 14:21 fish oil AdvReac Intermediate hx of Verified 07/09/23 14:21 hemorrhage in past Sulfa (Sulfonamide AdvReac Intermediate severe Verified 07/09/23 14:21 Antibiotics) agitation/delirium Consultations 12/02/23 03:06 ED Decision to Admit Stat 12/02/23 03:44 Consult Nephrology Routine Ordered Studies Chest X-Ray 12/02/23 00:40 XR chest 1V portable HISTORY: 88 years-old Male Dyspnea acute shortness of breath COMPARISON: 02/18/2023 TECHNIQUE: AP view of the chest FINDINGS: Cardiac silhouette is enlarged. Atherosclerosis of the aorta. No pneumothorax. Trace left with nunhn-ii-saxjpzod right pleural effusions. Right basilar predominant air space consolidation. Bones appear grossly intact. IMPRESSION: 1. Cardiomegaly with pulmonary edema. 2. Trace left and qyndw-[id number]-[id number] right pleural effusions. 3. Dense right basilar prominent airspace consolidation should be correlated clinically to exclude pneumonia. ACT 112: Negative or not required by law. The above report was generated using voice recognition software. It may contain grammatical, syntax or spelling errors. Electronically signed by: Otto Vazquez M.D. 12/02/2023 6:51 AM Chest X-Ray 12/02/23 17:30 XR chest 1V portable CLINICAL HISTORY: SOB, ?PNA TECHNIQUE: Single frontal radiograph of the chest was obtained. Comparison: Comparison is made to chest radiograph 12/02/2023 FINDINGS: No lines and tubes are seen. Cardiomegaly is noted. The aortic arch is calcified. There is prominence and cephalization of the vasculature with Betsy B lines seen. Right lower lobe airspace opacity is seen. Small bilateral pleural effusions are seen. IMPRESSION: 1. Cardiomegaly and moderate pulmonary edema. 2. Right lower lung airspace opacity may reflect atelectasis, pneumonia, and/or aspiration, slightly increased from prior exam. 3. Small bilateral pleural effusions. ACT 112: Negative or not required by law. Electronically signed by: Stan Stern M.D. 12/02/2023 6:15 PM ECHOCARDIOGRAM 12/04/23 LV systolic function is normal. Mild concentric LVH. RV mildly dilated. RV systolic function is normal. RA mild-mod dilated. Aortic valve sclerosis moderate without significant aortic valvular stenosis. Mild mitral regurgitation. RVSP elevated at 50-60mmHg Hospital Course (1) Acute heart failure with preserved ejection fraction (HFpEF): 88-year-old male with a history of end-stage renal disease on hemodialysis, diabetes, COPD presenting with acute hypoxic respiratory failuresaturations of 86% in the ER requiring placement of supplemental O2. Acute HFpEF in setting of cardiorenal syndrome in patient with hx ESRD on HD/anuric at baseline w/ increased O2 needs/pulmonary edema on exam BNP: 598 - pt anuric, so unable to use diuretics CXR: cardiomegaly with pulmonary edema, right small to moderate effusion right basilar prominent airspace consolidation - possible PNA -However, pt denies fever, chills, sweats. No leukocytosis. Procal 0.27 -Given Zosyn IV in ER, repeat CXR w/ concerns for RLL opacity concerning for atelectasis/PNA/ and/or aspiration, increased from prior. Small b/l pleural effusions - Zosyn was resumed initially, however patient reported CLEAR sputum, inability to lay flat -- No fever/chills and suspected more from CHF, antibiotics DISCONTINUED (did have low grade temp but suspect was from compressive atelectasis and no further since HD as below) ECHO w/ normal LV systolic function. RV mildly dilated. RV systolic function normal. RA mild-moderately dilated. Aortic valve sclerosis moderate, without significant aortic valvular stenosis. Mild MR. RVSP elevated 50-60mmHg s/p HD for 4L on 12/02 s/p HD for 3L on 12/04 CXR w/ improvement, overnight pulse ox study completed and should consider formal sleep study Pulmonary toilet, incentive spirometry encouraged 97% on RA prior to discharge PT/OT consulted and arrangements made for rehab. 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 Rates WELL controlled. Duonebs had been changed to prn DVT proph: Heparin SQ while inpatient , however has been declining. SCDs ordered in meantime (2) Hypoxia: as above, suspected 2nd to CHF. 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 F/u PCP for ongoing discussions (3) ESRD needing dialysis: Patient receives hemodialysis q. Saturday/Saturday/Saturday. Last full session last saturday, anuric at baseline and had not missed HD sessions Nephrology consulted while inpatient s/p HD on 12/02 for 4L, additional HD for 3L as above and continue HD at [facility] Continued phoslo/renal supplements (4) Atrial fibrillation: Patient appears to be in atrial fibrillation. 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 Review of last cards note w/ prn lorazepam for symptoms w/ palpitations w/ resolution. Can reach out to Dr Glover if needed pending telemetry monitoring however appears significant bleeding risk. (5) T2DM (type 2 diabetes mellitus): Last hemoglobin A1c on record = 8.4 from 06/11/2022. Blood sugar to 250s on admit BSG AC/HS, lantus 30u BID (on 40u BID at home of 70/30) SSI tightened 12/04, will loosen CR/CF given BSGs to 80s in afternoon 12/04 AM Glu only 62 12/05, will decrease lantus to 25u BID and decreased home dose to 35u BID and to continue to monitor/adjustment at [facility] as needed (6) CAD (coronary artery disease): Hx NSTEMI, chronic nonobstructive CAD continues on metoprolol BID, pravastatin Does not appear to be on ASA daily -- suspect from hx of GI bleeding issues in the past NO CHEST PAIN REPORTED (7) Hypertension: Blood pressure 150/61 Continue amlodipine (takes on non HD days at home) Continue metoprolol (8) Dyslipidemia: Chronic. Continued pravastatin 40 mg p.m. (9) Venous stasis of both lower extremities: wraps removed last evening 12/04 chronic venous stasis b/l LE, also w/ sacral wound/ulceration. Does have some erythema but no overt tenderness -patient reports having used some kind of cream at home to his legs no active drainage/able to culture at present time monitor for any evidence for cellulitis - NONE wound RN consulted, appreciate recs/assistance. continue to wash/moisturize at ok Diarrhea - reported loose stools. Had been given abx. Cdiff/PCR checked, NEGATIVE. Plan discharging to [facility] for acute rehab/ongoing HD at [facility] under direction of nephrology Total Time Total Time Spent Total Time Spent (In Minutes): 45 Discharge Plan Discharge Items Patient Disposition: Transfer Inpatient Rehab Fac Reason For Visit: ACUTE ON CHRONIC CHF, ESRD ON HD, AFIB Discharge Diagnosis: Acute on Chronic Heart failure, volume overload Goals: You have been hospitalized for an acute medical problem. During your stay at [facility], we have made an effort to correct the problem that brought you to the hospital while keeping you as comfortable as possible. Medications were used to bring your condition under control and your discharge instructions will include directions for any medications you should take after leaving the hospital. Please make sure you see your Primary Care Provider as part of your follow up plan. Activity: As commented below Non-emergency contact: Primary Care Provider and Repairer Call non-emergency contact if: you have any medication questions, your symptoms worsen and you have a fever Follow-up/Referrals: Sophie Patricia PA-C [Primary Care Provider] - Luis Armando Ulloa MD [Physician] - Diet: Carb Consistent or DM2 and Dialysis Renal Addtl Attending Provider Instructions: You have been hospitalized for shortness of breath and given antibiotics for possible infection however we suspect this was more related to heart failure from volume overload and you have not had a fever or elevated white count or changes in sputum production and these were stopped. Nephrology has been consulted and you underwent two additional dialysis treatments to pull off additional fluid and will continue HD at [facility] which has been arranged at discharge and your oxygen has been titrated and remaining stable on room air. Your insulin has been decreased to 35 units twice daily and you should continue to monitor your blood sugars/have this increased back if needed. Wound care nurse evaluated you while in the hospital and you should have continued wound care at discharged. Instructions from wound care at discharge are to continue to wash and keep moisturized. Please follow up with primary care in the next 7-10 days to monitor your progress. Please return to the ER with any increased shortness of breath, fever/chills or any symptoms concerning for you. It has been a pleasure being a part of the medical team providing for you while you have been in the hospital. Take care! Pending Studies at Discharge: Yes Studies:: Blood cultures -- NO GROWTH TO DATE Stand-Alone Forms: My [facility] Skilled Items Patient informed of condition?: Yes DNR: Yes Discharge Level of Care: Acute rehab Communicable Disease: No Discharge Prognosis: Stable Lines: None Urinary Catheter: No Medications and DC Order Prescriptions: Continued lorazepam 0.5 mg tablet 0.5 mg PO Q12H PRN (Reason: anxiety) Qty: 60 2RF pravastatin 40 mg tablet 40 mg PO QPM Qty: 90 3RF (DME) FreeStyle [place] 2 Sensor Kit See Rx Instructions .Route Qty: 6 3RF Rx Instructions: change sensor Q14D metoprolol tartrate 50 mg tablet 50 mg PO BID Qty: 180 3RF nitroglycerin 0.4 mg tablet, sublingual 0.4 mg sublingual Q5M PRN (Reason: hypertensive emergency) Qty: 25 5RF Rx Instructions: Take 1 pill for blood pressure > 180 mm Hg ProRenal 8 mg iron-800 mcg-1,000 unit tablet 1 tab PO QAM calcium acetate(phosphat bind) 667 mg capsule 2,001 mg PO TIDM Patient Comments: 1,334 mg PO 3 times a day with meals; with snacks take 2 capsules (DME) OneTouch Ultra Test Strip See Rx Instructions .Route Rx Instructions: check blood sugar twice daily Colace Clear 50 mg capsule 50 mg PO DAILY PRN (Reason: Constipation) amlodipine 5 mg tablet 5 mg PO 4XWK Rx Instructions: 5 mg orally on non-dialysis days (-); folic acid 1 mg tablet 1 mg PO QAM Changed insulin asp prt-insulin aspart [Novolog Mix 70-30 U-100 Insuln] 100 unit/mL (70-30) solution 35 unit subcut BID Qty: 72 2RF No Action (DME) pen needle, diabetic [BD Ultra-Fine Tiffanie Pen Needle] 32 gauge x 5/32" needle See Rx Instructions .ROUTE .MEDSUPPLY Qty: 200 3RF Rx Instructions: use twice daily Discharge Orders: Discharge Order (Routine); Ordered 12/05/23 Ordered By: Sanam Murdock Admission Data Admit Date/Time: 12/03/23 16:08 Attending Provider: Blake Wagoner Admit Provider: Tenisha Cruz Primary Care Provider: Sophie Patricia Other Providers: Tenisha Cruz; Rehana Acosta; [facility] Supervising Physician Co-Signing Physician Notes The patient was not seen by me. The chart was reviewed. Case discussed with JAMISON Montoya. Agree with assessment and plan. The patient is medically stable for discharge to [facility] today, December 05 Coding Level of Care Code 74343 INP/OBS DISCH >30 MIN Diagnoses Acute heart failure with preserved ejection fraction (HFpEF) I50.31 Hypoxia R09.02 ESRD needing dialysis N18.6; Z99.2 Atrial fibrillation I48.91 T2DM (type 2 diabetes mellitus) E11.9 CAD (coronary artery disease) I25.10 Hypertension I10 Dyslipidemia E78.5 Venous stasis of both lower extremities I87.8
[2023-12-05] MEDS: EUCERIN CR 120 GM JAR EXT SCH (13:33)
--- NOTE | 2023-12-05 13:33 | XRay Report ---
XR chest 2V PA/lateral CLINICAL HISTORY: f/u CHF, ?RLL opacity COMPARISON STUDY: Chest radiograph December 02, 2023. FINDINGS: No pneumothorax. Small bilateral pleural effusions are similar to prior exam. Right basilar airspace opacity persists. There is also left basilar opacity. Mild pulmonary edema has slightly imp roved. Cardiomediastinal silhouette is stable. IMPRESSION: 1. Slight improvement in pulmonary edema. 2. Persistent small bilateral pleural effusions with associated bibasilar opacities which could refle ct pneumonia or atelectasis. ACT 112: Negative or not required by law. Electronically signed by: Romulo Jeronimo M.D. 12/05/2023 1:32 PM
== END 2023-12-05 15:05 | DRG 291 ==
LOC: EDINP 00:18 → ED 00:18 → SUATTDRO 03:44 → 3E 07:52 → 2N 12-03 15:19

== ENCOUNTER 2024-01-17 16:28 | Inpatient (IN) ==
--- NOTE | 2024-01-17 16:49 | Emergency Department Note ---
Impression & Plan Diabetic foot ulcer, Anemia, ESRD on dialysis ED Provider Note NAME: MARY ANN DENNIS AGE: 88 SEX: M : 1935 ARRIVES VIA: Walk-In INFORMANT: Patient, ED PROVIDER(S): Alfred Williamson MD CHIEF COMPLAINT: Worsening foot wound, outpatient referral MEDICAL DECISION MAKING: Patient presented due to concern for worsening right foot wound. IV was established and blood work was obtained. Patient has a normal white count with hemoglobin 9.4. Kidney function with creatinine 3.5. Procalcitonin slightly elevated 0.5. The patient was ordered vancomycin and Zosyn. I did speak with the on-call hospitalist Dr. Crane and the patient was admitted to the medicine service Discussion w/ other healthcare providers: None Prior /Outside records reviewed: None Differential diagnosis: Cellulitis, abscess, MRSA infection, DVT, necrotizing fasciitis, dermatitis, drug eruption, allergic reaction, as well as other pathologies were considered. Diagnostics, as interpreted by me: ECG: A-fib, rate of 85, normal QRS, normal axis PVC noted. Cardiac monitoring: An order was placed for continuous cardiac monitoring. The monitor shows a rate of 85 with irregularly irregular rhythm. Patient was placed on pulse oximetry Medical decision rules: None Imaging studies: I informally interpreted the patient's right foot x-ray does not show obvious fracture with formal report to follow. HPI: Patient presents due to concern for worsening foot wound. The patient does have a known history of prior wound care but has not seen the wound care clinic in several years. Patient did note that he had an associated foot wound to the right distal lateral plantar surface and was seen as an outpatient at dialysis and was noted to be about the size of a dime. Patient noticed that this seemed to have worsened recently and seem to be larger. The patient denies any fevers or chills. The patient has had some associated redness although son at bedside states that this is fairly chronic in nature. Patient does receive dialysis Saturday and did receive his full course of dialysis today. Patient denies any chest pains or shortness of breath he does not make any urine. Patient does suffer from neuropathy. He admits taking at home Keflex after being seen in the emergency department. PAST MEDICAL HISTORY: See Below PAST SURGICAL HISTORY: See Below SOCIAL HISTORY: See Below HOME MEDICATIONS: See Below ALLERGIES: See Below VITALS: See Below PHYSICAL EXAMINATION: GENERAL: NAD, non-toxic. EYE EXAM: Normal conjunctiva. PERRL, no anisocoria and EOM's grossly intact w/o pain. OROPHARYNX: Moist mucus membranes, grossly normal dentition. NECK: Trachea midline, no stridor. Supple, no nuchal rigidity, no adenopathy, non-tender. No signs of meningismus. FROM of the neck with good chin to chest and neck extension. LUNGS: Clear to auscultation. Normal chest wall mechanics. HEART: Irregularly irregular, no MRG. ABDOMEN: Abdomen soft, non-tender, no masses, no rebound or guarding. BACK: No CVA TTP. SKIN: No rashes and no bruising. UPPER EXTREMITIES: Upper extremities are grossly normal. Right upper extremity AV fistula with thrill present. LOWER EXTREMITIES: Grossly normal, bilateral lower extremity edema with erythema bilaterally. Foot wound noted on the plantar surface of the right lower extremity base 5th MTP. Approximately the size of a quarter. Drainage noted. NEURO EXAM: A&O x3, cranial nerves II-XII grossly intact, normal speech, moves all 4 extremities. Past Med/Surg History Medical History Elevated troponin Acute respiratory failure with hypoxia Weakness Hyperkalemia Pulmonary edema Acute respiratory failure Exertional dyspnea Chest pain Phimosis of penis AV fistula AV fistula Anxiety Breathlessness Right shoulder tendinitis Right shoulder pain T2DM (type 2 diabetes mellitus) Acute dyspnea Anemia COVID-19 COPD (chronic obstructive pulmonary disease) Dialysis AV fistula malfunction Emphysema lung suggested per CXR History of blood transfusion 2/2 GIB felt r/t radiation therapy s/p total of 6 units PRBC's since 10/2018 Arteriovenous fistula thrombosis Gout Osteoarthritis Hearing deficit LEFT Diabetic neuropathy Transient ischemic attack (TIA) (2015) 2015--no deficits, no neurologist Thrombocytopenia Pulmonary nodules UNDER SURVEILLANCE Prostate cancer S/P SURGERY, XRT 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 Hanna through Right AV fistula 08/17/19 S/P arteriovenous (AV) fistula creation right 05/[address] Hanna S/P dialysis catheter insertion Permcath + attempted thrombectomy: 04/2019: MAC sedation at [facility] History of esophagogastroduodenoscopy (EGD) + CAUTERIZATION (2/2 GIB) History of colonoscopy History of tooth extraction History of cataract surgery RIGHT/LEFT History of cardiac cath X3 = NO STENTS S/P arteriovenous (AV) fistula creation LEFT Right side recently ballooned and stented in [facility] Amputation of left little finger History of arthroscopy LEFT KNEE History of bowel resection BOWEL LACERATION DURING ATTEMPTING POLYPECTOMY H/O prostatectomy Family History Father Family history of diabetes mellitus Hypertension Brother Prostate cancer Mother Heart disease Hypertension Denies family history of Ovarian cancer Breast cancer Lung cancer Colorectal cancer Social History Smoking Status: Never smoker Second Hand Exposure: No; Do You Dip or Chew Tobacco: No; Hx Alcohol Use: No Hx Substance Use: No Preferred Language: Serbian Communication Ability: Effective Visual Impairment: No Limitations Hearing Ability: Normal Enrichment Teacher Required: No Beliefs That Will Affect Care: None marital status: / Current Living Situation: Alone Current Living Situation Comment: Lives with Grandson current occupational status: retired How many Children do You have: 1 Feels Safe at Home: Yes Childhood Exposure to Second-Hand Smoke: Yes Diet: regular Diet Comment: regular caffeine: Yes (coffee, once in a while) during the past year weight has: remained stable Dental Care, Regularly: Yes Physical Activity Frequency: Does not Exercise Seatbelt Use: always Sunscreen Use: No Assistive Devices: Walker Allergies Allergies Allergy/AdvReac Type Severity Reaction Status Date / Time clarithromycin AdvReac Intermediate confusion Verified 12/24/23 11:01 fish oil AdvReac Intermediate hx of Verified 12/24/23 11:01 hemorrhage in past Sulfa (Sulfonamide AdvReac Intermediate severe Verified 12/24/23 11:01 Antibiotics) agitation/delirium Home Meds Home Medications Medication Instructions Recorded Confirmed vit B complx, C-iron 8 mg-folic 1 tab PO QAM 03/05/19 01/17/24 acid 800 mcg-D3 1,000 unit-zinc tablet (ProRenal) calcium acetate(phosphat bind) 667 2,001 mg PO TIDM 05/03/21 01/17/24 mg capsule docusate sodium 50 mg capsule 50 mg PO DAILY PRN Constipation 05/03/21 01/17/24 (Colace Clear) blood sugar diagnostic (OneTouch 09/25/22 01/17/24 Ultra Test strips) folic acid 1 mg tablet 1 mg PO QAM 12/02/23 01/17/24 Previous Rx's Medication Instructions Recorded lorazepam 0.5 mg tablet 0.5 mg PO Q12H PRN anxiety #60 tabs 01/23/22 pravastatin 40 mg tablet 40 mg PO QPM #90 tabs 01/14/23 flash glucose sensor (FreeStyle #6 ea 03/19/23 Frederick 2 Sensor kit) pen needle, diabetic 32 gauge x #200 ea 06/19/23" (BD Ultra-Fine Tiffanie Pen Needle) metoprolol tartrate 50 mg tablet 50 mg PO BID #180 tabs 07/16/23 nitroglycerin 0.4 mg sublingual 0.4 mg sublingual Q5M PRN 09/25/23 tablet hypertensive emergency #25 tabs insulin aspar prt-insulin aspart See Rx Instructions .Route 12/19/23 100 unit/mL (70-30) subcutaneous .COMPLEX #50 mL soln (Novolog Mix 70-30 U-100 Insuln) amlodipine 5 mg tablet 5 mg PO 4XWK #90 tabs 12/23/23 L.acidop,casei,lactis,rham-B.lact,lizy 2 cap PO DAILY 1 week #14 caps 01/21/24 625 mg (10 billion cell) capsule (Advanced Probiotic) clindamycin HCl 150 mg capsule 450 mg (3 x 150 mg) PO Q8H 4 days 01/21/24 #36 caps collagenase clostridium histo. 250 1 applic EXT DAILY #30 grams 01/21/24 unit/gram topical ointment (Santyl) loperamide 2 mg capsule 2 mg PO Q2H PRN loose stool 5 days 01/21/24 #10 caps Results & Data (ED) Vital Signs Vital Signs - 24 hr 01/17/24 16:31 Temperature 36.5 C Temperature Source Temporal Artery Scan Pulse Rate 87 Pulse Rhythm Regular Pulse Strength Normal Respiratory Rate 20 Respiratory Effort / Characteristics Non-Labored Spontaneous Respiratory Depth Normal Respiratory Pattern Regular Blood Pressure 151/62 H Blood Pressure Mean 91 Blood Pressure Position Sitting Pulse Oximetry 97 Oxygen Delivery Method Room Air Sepsis Recent Fever Within 48 Hours No Sepsis New/Unexplained Change in Mental Status No Sepsis Action Taken by Nursing No Action Required Home Medications Current Medication List: was personally reviewed by me Laboratory Data Attestation: I reviewed the patient's lab results. 01/21/24 05:34 01/21/24 05:34 Lab Results 01/17/24 Range/Units 19:00 WBC 6.32 (4.8-10.8) K/ul RBC 3.24 L (4.70-6.10) M/uL Hgb 9.4 L (14.0-18.0) g/dl Hct 29.6 L (42.0-52.0) % MCV 91.4 (80.0-100.0) fL MCH 29.0 (25.0-34.0) pg MCHC 31.8 L (32.0-36.0) g/dL RDW Std Deviation 51.8 H (36.4-46.3) fL RDW Coeff of Casandra 15.5 H (11.5-14.5) % Plt Count 127 L (130-400) K/uL MPV 10.5 (9.4-12.4) fL Immature Gran % (Auto) 0.8 % Neut % (Auto) 74.1 % Lymph % (Auto) 14.9 % [place] % (Auto) 8.7 % Eos % (Auto) 1.3 % Baso % (Auto) 0.2 % Neut # (Auto) 4.69 (1.40-6.50) K/uL Lymph # (Auto) 0.94 L (1.20-3.40) K/uL [place] # (Auto) 0.55 (0.11-0.59) K/uL Eos # (Auto) 0.08 (0.00-0.50) K/uL Baso # (Auto) 0.01 (0.00-0.20) K/uL Immature Gran # (Auto) 0.05 (0.01-0.20) K/uL Sodium 136 (136-145) mmol/L Potassium 3.6 (3.5-5.1) mmol/L Chloride 92 L (98-107) mmol/L Carbon Dioxide 34 H (21-32) mmol/L Anion Gap 10 (3-11) BUN 21 (6-23) mg/dl Creatinine 3.51 H (0.6-1.4) mg/dl Est Cr Clr Drug Dosing 15.7 ml/min Est GFR ( Amer) 16.9 ml/min Est GFR (Non-Af Amer) 14.6 ml/min BUN/Creatinine Ratio 6.0 L (10-20) Glucose 233 H (70-99(Fasting)) mg/dl Estimat Average Glucose 166 mg/dl Hemoglobin A1c 7.4 H (4.5-5.6) % Lactate 1.7 (0.4-2.0) mmol/L Calcium 8.5 L (8.6-10.3) mg/dl Magnesium 1.9 (1.7-2.4) mg/dl Total Bilirubin 0.4 (0.2-1.0) mg/dl Direct Bilirubin 0.1 (0-0.2) mg/dl AST 13 (13-39) U/L ALT 7 (7-52) U/L Alkaline Phosphatase 77 (34-104) U/L Troponin I High Sens 11.4 (0-20) pg/ml Total Protein 7.5 (6.0-8.3) gm/dl Albumin 3.5 (3.4-5.0) gm/dl Procalcitonin 0.56 H (0-0.5) ng/ml Administered Medications Discontinued Medications Amlodipine Besylate (Amlodipine Besylate 5 Mg Tab) 5 mg PO SuTuThSa [facility] Stop: 02/17/24 08:59 Last Admin: 01/21/24 07:42 Dose: 5 mg Documented By: Admin: 01/19/24 08:37 Dose: 5 mg Documented By: Admin: 01/18/24 07:45 Dose: 5 mg Documented By: SHIRA Calcium Acetate (Calcium Acetate 667 Mg Cap/Tab) 2,001 mg PO TIDM [facility] Stop: 02/17/24 07:59 Last Admin: 01/21/24 17:02 Dose: 2,001 mg Documented By: Admin: 01/21/24 11:58 Dose: 2,001 mg Documented By: Admin: 01/21/24 07:42 Dose: 2,001 mg Documented By: Admin: 01/20/24 17:11 Dose: Not Given Documented By: Admin: 01/20/24 14:51 Dose: 2,001 mg Documented By: Admin: 01/20/24 07:43 Dose: 2,001 mg Documented By: Admin: 01/19/24 16:40 Dose: 2,001 mg Documented By: Admin: 01/19/24 13:17 Dose: 2,001 mg Documented By: Admin: 01/19/24 08:37 Dose: 2,001 mg Documented By: Admin: 01/18/24 17:08 Dose: 2,001 mg Documented By: Admin: 01/18/24 13:09 Dose: 2,001 mg Documented By: Admin: 01/18/24 07:45 Dose: 2,001 mg Documented By: SHIRA Collagenase (Collagenase Oint 30 Gm Tube) 1 appln EXT DAILY KASSANDRA Stop: 02/20/24 08:59 Last Admin: 01/21/24 07:43 Dose: 1 appln Documented By: MADELAINE Epoetin Andrae (Epoetin Andrae 20,000 Units/Ml Vial) 20,000 units IV NOW STA Stop: 01/20/24 08:40 Last Admin: 01/20/24 12:11 Dose: 20,000 units Documented By: IDANIA Folic Acid (Folic Acid 1 Mg Tab) 1 mg PO QAM KASSANDRA Stop: 02/17/24 08:59 Last Admin: 01/21/24 07:42 Dose: 1 mg Documented By: Admin: 01/20/24 07:44 Dose: 1 mg Documented By: Admin: 01/19/24 08:37 Dose: 1 mg Documented By: Admin: 01/18/24 07:45 Dose: 1 mg Documented By: SHIRA Heparin Sodium (Porcine) (Heparin Sod 5,000 Unit/0.5 Ml Vial) 5,000 units SQ Q12 KASSANDRA Stop: 02/17/24 08:59 Last Admin: 01/21/24 07:42 Dose: 5,000 units Documented By: Admin: 01/20/24 21:30 Dose: 5,000 units Documented By: Admin: 01/20/24 07:43 Dose: 5,000 units Documented By: Admin: 01/19/24 19:43 Dose: 5,000 units Documented By: Admin: 01/19/24 08:37 Dose: 5,000 units Documented By: Admin: 01/18/24 20:33 Dose: 5,000 units Documented By: Admin: 01/18/24 07:45 Dose: 5,000 units Documented By: SHIRA Vancomycin HCl 2,250 mg/ (Sodium Chloride) 545 mls @ 200 mls/hr IV NOW ONE Stop: 01/17/24 20:16 Last Infusion: 01/18/24 17:14 Dose: Infused Documented By: Infusion: 01/17/24 20:40 Dose: 0 mls/hr Documented By: Admin: 01/17/24 19:47 Dose: 200 mls/hr Documented By: BRUNO Piperacillin Sod/Tazobactam Sod (Zosyn) 4.5 gm in 100 mls @ 200 mls/hr IV NOW ONE Stop: 01/17/24 18:02 Last Infusion: 01/17/24 19:45 Dose: Infused Documented By: Admin: 01/17/24 19:12 Dose: 200 mls/hr Documented By: EFRAIN Piperacillin Sod/Tazobactam (Sod 4.5 gm/ Dextrose) 100 mls @ 25 mls/hr IV Q12H [facility]; Protocol Stop: 01/25/24 03:59 Last Infusion: 01/21/24 07:37 Dose: Infused Documented By: Admin: 01/21/24 03:29 Dose: 25 mls/hr Documented By: Infusion: 01/20/24 21:11 Dose: Infused Documented By: Admin: 01/20/24 17:11 Dose: 25 mls/hr Documented By: Infusion: 01/20/24 07:39 Dose: Infused Documented By: Admin: 01/20/24 03:57 Dose: 25 mls/hr Documented By: Infusion: 01/19/24 21:04 Dose: Infused Documented By: Admin: 01/19/24 16:40 Dose: 25 mls/hr Documented By: Infusion: 01/19/24 11:48 Dose: Infused Documented By: Admin: 01/19/24 04:57 Dose: 25 mls/hr Documented By: Infusion: 01/18/24 21:53 Dose: Infused Documented By: Admin: 01/18/24 17:08 Dose: 25 mls/hr Documented By: Infusion: 01/18/24 08:41 Dose: Infused Documented By: Admin: 01/18/24 04:23 Dose: 25 mls/hr Documented By: KIMBERLY Daptomycin 425 mg/ Syringe 8.5 mls @ 4.25 mls/min IV Q48H KASSANDRA; Protocol Stop: 01/25/24 15:59 Last Admin: 01/20/24 17:11 Dose: 4.25 mls/min Documented By: Admin: 01/18/24 17:08 Dose: 4.25 mls/min Documented By: SHIRA Insulin Aspart (Insulin Aspart Per Unit Charge) 0 units SC ACHS KASSANDRA Stop: 02/16/24 23:44 Last Admin: 01/21/24 17:02 Dose: 5 units Documented By: MADELAINE Co-signed By: RACHANA Admin: 01/21/24 11:59 Dose: 7 units Documented By: MADELAINE Co-signed By: RACHANA Admin: 01/21/24 08:37 Dose: 5 units Documented By: MADELAINE Co-signed By: KATELIN Admin: 01/20/24 21:39 Dose: 3 units Documented By: NOHEMI Co-signed By: ENRRIQUE Admin: 01/20/24 17:09 Dose: 6 units Documented By: MADELAINE Co-signed By: IRIS Admin: 01/20/24 14:51 Dose: 4 units Documented By: MADELAINE Co-signed By: [facility] Admin: 01/20/24 08:17 Dose: 8 units Documented By: MADELAINE Co-signed By: VG Admin: 01/19/24 20:38 Dose: Not Given Documented By: RES Co-signed By: TKB Admin: 01/19/24 16:44 Dose: 6 units Documented By: DEDRICK Co-signed By: SHAJI Admin: 01/19/24 13:17 Dose: 8 units Documented By: SHIRA Co-signed By: NGA Admin: 01/19/24 08:42 Dose: 9 units Documented By: SHIRA Co-signed By: NGA Admin: 01/18/24 21:40 Dose: Not Given Documented By: Admin: 01/18/24 18:13 Dose: 5 units Documented By: SHIRA Co-signed By: MAHENDRA Admin: 01/18/24 13:08 Dose: 7 units Documented By: SHIRA Co-signed By: MAHENDRA Admin: 01/18/24 09:13 Dose: 5 units Documented By: SHIRA Co-signed By: MAHENDRA Admin: 01/18/24 01:01 Dose: 5 units Documented By: LIBERTY Co-signed By: ISABELL Lactobacillus Acidophilus (Advanced Probiotic 625 Mg Capsule) 1,250 mg PO DAILY KASSANDRA Stop: 02/20/24 10:44 Last Admin: 01/21/24 11:58 Dose: 1,250 mg Documented By: MADELAINE Loperamide HCl (Loperamide Hcl 2 Mg Cap) 2 mg PO Q2H PRN PRN Reason: Diarrhea Stop: 02/19/24 15:41 Last Admin: 01/21/24 11:58 Dose: 2 mg Documented By: Admin: 01/20/24 21:30 Dose: 2 mg Documented By: NOHEMI Metoprolol Tartrate (Metoprolol Tartrate 50 Mg Tab) 50 mg PO BID KASSANDRA Stop: 02/16/24 23:44 Last Admin: 01/21/24 07:42 Dose: 50 mg Documented By: Admin: 01/20/24 21:30 Dose: 50 mg Documented By: Admin: 01/20/24 07:44 Dose: 50 mg Documented By: Admin: 01/19/24 19:43 Dose: 50 mg Documented By: Admin: 01/19/24 08:37 Dose: 50 mg Documented By: Admin: 01/18/24 20:33 Dose: 50 mg Documented By: Admin: 01/18/24 07:45 Dose: 50 mg Documented By: Admin: 01/18/24 01:01 Dose: 50 mg Documented By: LIBERTY Pravastatin Sodium (Pravastatin Sod 40 Mg Tab) 40 mg PO QPM KASSANDRA Stop: 02/16/24 23:44 Last Admin: 01/20/24 21:29 Dose: 40 mg Documented By: Admin: 01/19/24 19:44 Dose: 40 mg Documented By: Admin: 01/18/24 20:32 Dose: 40 mg Documented By: Admin: 01/18/24 01:00 Dose: 40 mg Documented By: LIBERTY Discharge Plan Visit Data Chief Complaint: Infection, Wound Stated Complaint: DIABETIC ABSESS RT OUTER FOOT, POPPED/BONE SHOWING ED Provider: Alfred Williamson Discharge Problem: Diabetic foot ulcer, Anemia, ESRD on dialysis Patient Disposition: Admitted As Inpatient Discharge Instructions Interventions: ED Discharge Assessment Last Done: 01/17/24 23:46 Discharge Problem: Diabetic foot ulcer Qualifiers: Diabetic foot ulcer location: other Laterality: right Anemia Qualifiers: Anemia type: due to chronic kidney disease
[2024-01-17] MEDS ORDERED: VANCOMYCIN CONSULT ACTIVE PRN (17:33)
--- NOTE | 2024-01-17 17:59 | XRay Report ---
XR foot RT 2V HISTORY: 88 years-old Male foot chronic right foot pain COMPARISON: 01/11/2024 TECHNIQUE: 2 views of the right foot FINDINGS: Demineralized appearance of the bones with moderate osteoarthritis. Moderate soft tissue swelling wit h arterial calcifications. No acute fracture, dislocation or osseous erosion. IMPRESSION: No acute osseous abnormality. ACT 112: Negative or not required by law. The above report was generated using voice recognition software. It may contain grammatical, syntax o r spelling errors. Electronically signed by: Otto Vazquez M.D. 01/17/2024 5:58 PM
[2024-01-17] MEDS: PIPERACILLIN/TAZOBACTAM 4.5 GM/100 ML BAG IV ONE (19:12)
[2024-01-17 19:29] LABS: Basophils # (auto) 0.01 K/uL (0.00-0.20); Basophils % (auto) 0.2 %; Eosinophils # (auto) 0.08 K/uL (0.00-0.50); Eosinophils % (auto) 1.3 %; Hematocrit (blood only) 29.6 % (42.0-52.0); Hemoglobin 9.4 g/dl (14.0-18.0); Immature Granulocytes # (auto) 0.05 K/uL (0.01-0.20); Immature Granulocytes % (auto) 0.8 %; Lymphocytes # (auto) 0.94 K/uL (1.20-3.40); Lymphocytes % (auto) 14.9 %; Mean Corpuscular Hgb Conc 31.8 g/dL (32.0-36.0); Mean Corpuscular Volume 91.4 fL (80.0-100.0); Mean Platelet Volume 10.5 fL (9.4-12.4); Monocytes # (auto) 0.55 K/uL (0.11-0.59); Monocytes % (auto) 8.7 %; Neutrophils # (auto) 4.69 K/uL (1.40-6.50); Neutrophils % (auto) 74.1 %; Platelet Count 127 K/uL (130-400); RDW Coefficient of Variation 15.5 % (11.5-14.5); RDW Standard Deviation 51.8 fL (36.4-46.3); Red Blood Count 3.24 M/uL (4.70-6.10); White Blood Count 6.32 K/ul (4.8-10.8)
[2024-01-17] MEDS: VANCOMYCIN HCL 2,250 MG in SODIUM CHLORIDE 0.9% 500 ML IV ONE (19:47)
[2024-01-17 19:48] LABS: Albumin Level 3.5 gm/dl (3.4-5.0); Bilirubin Direct 0.1 mg/dl (0-0.2); Bilirubin,Total 0.4 mg/dl (0.2-1.0); Calcium 8.5 mg/dl (8.6-10.3); Creatinine Clr Calc Pharmacy 15.7 ml/min; Est GFR (African American) 16.9 ml/min; Est GFR (Non-African American) 14.6 ml/min; Magnesium 1.9 mg/dl (1.7-2.4); Potassium 3.6 mmol/L (3.5-5.1); Total Protein 7.5 gm/dl (6.0-8.3)
[2024-01-17 19:54] LABS: Troponin I High Sensitivity 11.4 pg/ml (0-20)
--- NOTE | 2024-01-17 20:41 | History & Physical Report ---
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- Discontinue cephalexin Place on daptomycin IV and Zosyn IV Consult wound care Minimize trauma Order lower extremity arterial Dopplers Would probably benefit from Unna boots on a long-term basis ESRD on HD- Typical dialysis days on Saturday, Saturday and Saturday Did have his routine dialysis today, Saturday Consult nephrology Diabetes mellitus- Hold outpatient regimen Placed on Accu-Cheks with NovoLog SSI Hypertension- Continue metoprolol to tartrate and amlodipine with hold parameters History of Present Illness Chief Complaint: The patient presents to the emergency department with complaint of a worsening sore spot right fifth MTP area over the past week. Primary Care Provider: Sophie Patricia PA-C The patient is a 88-year-old male with past medical history including ESRD on HD, atrial fibrillation, HFpEF, diabetes mellitus type 2, labile hypertension, NSTEMI, bullous emphysema, diabetic neuropathy, diabetic nephropathy, paroxysmal atrial tachycardia, pulmonary hypertension, liver cirrhosis, lymphoid interstitial pneumonitis, prostate cancer, and GAVE causing chronic upper GI bleeding. He reports that about 7 days ago he noticed a pinching sensation in his right foot, was initially assessed at dialysis and was a small area to need to be watched. On 01/11/2024 he presented to the emergency department, had a workup done and then was sent home on cephalexin, which she has been taking routinely. He was assessed again at dialysis this morning, was found to have a worsening infection, and was advised to come to the ED for assessment. In the emergency department is found to have diabetic foot ulcer, and was referred for evaluation for admission Allergies Allergy/AdvReac Type Severity Reaction Status Date / Time clarithromycin AdvReac Intermediate confusion Verified 12/24/23 11:01 fish oil AdvReac Intermediate hx of Verified 12/24/23 11:01 hemorrhage in past Sulfa (Sulfonamide AdvReac Intermediate severe Verified 12/24/23 11:01 Antibiotics) agitation/delirium Home Medications Medication Instructions Recorded Confirmed Type vit B complx, C-iron 8 mg-folic 1 tab PO QAM 03/05/19 01/17/24 History acid 800 mcg-D3 1,000 unit-zinc tablet (ProRenal) calcium acetate(phosphat bind) 667 2,001 mg PO TIDM 05/03/21 01/17/24 History mg capsule docusate sodium 50 mg capsule 50 mg PO DAILY PRN Constipation 05/03/21 01/17/24 History (Colace Clear) lorazepam 0.5 mg tablet 0.5 mg PO Q12H PRN anxiety #60 tabs 01/23/22 01/17/24 Rx blood sugar diagnostic (OneTouch 09/25/22 01/17/24 History Ultra Test strips) pravastatin 40 mg tablet 40 mg PO QPM #90 tabs 01/14/23 01/17/24 Rx flash glucose sensor (FreeStyle #6 ea 03/19/23 01/17/24 Rx Frederick 2 Sensor kit) pen needle, diabetic 32 gauge x #200 ea 06/19/23 01/17/24 Rx 5/32" (BD Ultra-Fine Tiffanie Pen Needle) metoprolol tartrate 50 mg tablet 50 mg PO BID #180 tabs 07/16/23 01/17/24 Rx nitroglycerin 0.4 mg sublingual 0.4 mg sublingual Q5M PRN 09/25/23 01/17/24 Rx tablet hypertensive emergency #25 tabs folic acid 1 mg tablet 1 mg PO QAM 12/02/23 01/17/24 History insulin aspar prt-insulin aspart See Rx Instructions .Route 12/19/23 01/17/24 Rx 100 unit/mL (70-30) subcutaneous .COMPLEX #50 mL soln (Novolog Mix 70-30 U-100 Insuln) amlodipine 5 mg tablet 5 mg PO 4XWK #90 tabs 12/23/23 01/17/24 Rx cephalexin 250 mg tablet 250 mg PO BID 10 days #20 tabs 01/11/24 01/17/24 Rx Past Med/Surg History Medical History Elevated troponin Acute respiratory failure with hypoxia Weakness Hyperkalemia Pulmonary edema Acute respiratory failure Exertional dyspnea Chest pain Phimosis of penis AV fistula AV fistula Anxiety Breathlessness Right shoulder tendinitis Right shoulder pain T2DM (type 2 diabetes mellitus) Acute dyspnea Anemia COVID-19 COPD (chronic obstructive pulmonary disease) Dialysis AV fistula malfunction Emphysema lung suggested per CXR History of blood transfusion 2/2 GIB felt r/t radiation therapy s/p total of 6 units PRBC's since 10/2018 Arteriovenous fistula thrombosis Gout Osteoarthritis Hearing deficit LEFT Diabetic neuropathy Transient ischemic attack (TIA) (2014) 2014--no deficits, no neurologist Thrombocytopenia Pulmonary nodules UNDER SURVEILLANCE Prostate cancer S/P SURGERY, XRT 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 Hanna through Right AV fistula 08/17/19 S/P arteriovenous (AV) fistula creation right 05/[address] Hanna S/P dialysis catheter insertion Permcath + attempted thrombectomy: 04/2019: MAC sedation at [facility] History of esophagogastroduodenoscopy (EGD) + CAUTERIZATION (2/2 GIB) History of colonoscopy History of tooth extraction History of cataract surgery RIGHT/LEFT History of cardiac cath X3 = NO STENTS S/P arteriovenous (AV) fistula creation LEFT Right side recently ballooned and stented in [facility] Amputation of left little finger History of arthroscopy LEFT KNEE History of bowel resection BOWEL LACERATION DURING ATTEMPTING POLYPECTOMY H/O prostatectomy Family History Father Family history of diabetes mellitus Hypertension Brother Prostate cancer Mother Heart disease Hypertension Denies family history of Ovarian cancer Breast cancer Lung cancer Colorectal cancer Social History Smoking Status: Never smoker Second Hand Exposure: No; Do You Dip or Chew Tobacco: No; Hx Alcohol Use: No Hx Substance Use: No Preferred Language: Moldovan Communication Ability: Effective Visual Impairment: No Limitations Hearing Ability: Normal 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 Beliefs That Will Affect Care: None marital status: / Current Living Situation: Family Current Living Situation Comment: Lives with Grandson current occupational status: retired How many Children do You have: 1 Feels Safe at Home: Yes Childhood Exposure to Second-Hand Smoke: Yes Diet: regular Diet Comment: regular caffeine: Yes (coffee, once in a while) during the past year weight has: remained stable Dental Care, Regularly: Yes Physical Activity Frequency: Does not Exercise Seatbelt Use: always Sunscreen Use: No Assistive Devices: Walker Review of Systems Review of Systems: The patient denies chest pain, palpitations, shortness of breath, dyspnea on exertion, cough, sore throat, fevers, chills, sweats, nausea, vomiting, diarrhea , constipation, abdominal pain, pelvic pain, blood in urine or stool, dysuria, urinary frequency or urgency, lightheadedness, dizziness, headache, memory loss, loss of consciousness, rash, abnormal bruising or bleeding, focal or generalized weakness, numbness or tingling in arms, generalized arthralgias or myalgias, back or neck pain, or night sweats. The review of systems is otherwise negative other than for that already noted above, and at least 10 systems have been reviewed. Physical Exam Physical Exam: The patient is awake, alert and oriented 3, well developed and well nourished, normocephalic and atraumatic, lying in bed and in no acute distress. HEENT--PERRL, EOMI, mucous membranes and oropharynx normal Neck--supple. No JVD. No bruits. Thyroid normal, trachea midline, no adenopathy. Heart--normal S1 and S2. No murmurs, rubs or gallops. Lungs--clear bilaterally, no respiratory distress, no accessory muscle use. Abdomen--normal bowel sounds and soft. Nontender. Nondistended, no hernias or masses, no organomegaly. Extremities--1+ pitting edema right greater than left. Dermatologic--ulcer at the base of the right fifth MTP. Chronic bilateral eczematous changes pretibially Neurologic--cranial nerves II through XII grossly intact. Rheumatologic--normal range of motion except for right ankle and foot Psychiatric--normal affect. Results & Data Results & Data Vital Signs (Past 12 Hours) Vital Signs Temp Pulse Resp BP Pulse Ox O2 Del Method 01/17/24 19:30 76 18 129/64 99 Room Air 01/17/24 19:00 81 21 133/62 98 Room Air 01/17/24 18:30 79 01/17/24 16:31 36.5 C 87 20 151/62 H 97 Room Air Laboratory Results Laboratory Results WBC 6.32 K/ul (4.8-10.8) 01/17/24 19:00 RBC 3.24 M/uL (4.70-6.10) L 01/17/24 19:00 Hgb 9.4 g/dl (14.0-18.0) L 01/17/24 19:00 Hct 29.6 % (42.0-52.0) L 01/17/24 19:00 MCV 91.4 fL (80.0-100.0) 01/17/24 19:00 MCH 29.0 pg (25.0-34.0) 01/17/24 19:00 MCHC 31.8 g/dL (32.0-36.0) L 01/17/24 19:00 RDW Std Deviation 51.8 fL (36.4-46.3) H 01/17/24 19:00 RDW Coeff of Casandra 15.5 % (11.5-14.5) H 01/17/24 19:00 Plt Count 127 K/uL (130-400) L 01/17/24 19:00 MPV 10.5 fL (9.4-12.4) 01/17/24 19:00 Immature Gran % (Auto) 0.8 % 01/17/24 19:00 Neut % (Auto) 74.1 % 01/17/24 19:00 Lymph % (Auto) 14.9 % 01/17/24 19:00 Dare % (Auto) 8.7 % 01/17/24 19:00 Eos % (Auto) 1.3 % 01/17/24 19:00 Baso % (Auto) 0.2 % 01/17/24 19:00 Neut # (Auto) 4.69 K/uL (1.40-6.50) 01/17/24 19:00 Lymph # (Auto) 0.94 K/uL (1.20-3.40) L 01/17/24 19:00 Dare # (Auto) 0.55 K/uL (0.11-0.59) 01/17/24 19:00 Eos # (Auto) 0.08 K/uL (0.00-0.50) 01/17/24 19:00 Baso # (Auto) 0.01 K/uL (0.00-0.20) 01/17/24 19:00 Immature Gran # (Auto) 0.05 K/uL (0.01-0.20) 01/17/24 19:00 Sodium 136 mmol/L (136-145) 01/17/24 19:00 Potassium 3.6 mmol/L (3.5-5.1) 01/17/24 19:00 Chloride 92 mmol/L (98-107) L 01/17/24 19:00 Carbon Dioxide 34 mmol/L (21-32) H 01/17/24 19:00 Anion Gap 10 (3-11) 01/17/24 19:00 BUN 21 mg/dl (6-23) 01/17/24 19:00 Creatinine 3.51 mg/dl (0.6-1.4) H 01/17/24 19:00 Est Cr Clr Drug Dosing 15.7 ml/min 01/17/24 19:00 Est GFR ( Amer) 16.9 ml/min 01/17/24 19:00 Est GFR (Non-Af Amer) 14.6 ml/min 01/17/24 19:00 BUN/Creatinine Ratio 6.0 (10-20) L 01/17/24 19:00 Glucose 233 mg/dl (70-99(Fasting)) H 01/17/24 19:00 Lactate 1.7 mmol/L (0.4-2.0) 01/17/24 19:00 Calcium 8.5 mg/dl (8.6-10.3) L 01/17/24 19:00 Magnesium 1.9 mg/dl (1.7-2.4) 01/17/24 19:00 Total Bilirubin 0.4 mg/dl (0.2-1.0) 01/17/24 19:00 Direct Bilirubin 0.1 mg/dl (0-0.2) 01/17/24 19:00 AST 13 U/L (13-39) 01/17/24 19:00 ALT 7 U/L (7-52) 01/17/24 19:00 Alkaline Phosphatase 77 U/L (34-104) 01/17/24 19:00 Troponin I High Sens 11.4 pg/ml (0-20) 01/17/24 19:00 Total Protein 7.5 gm/dl (6.0-8.3) 01/17/24 19:00 Albumin 3.5 gm/dl (3.4-5.0) 01/17/24 19:00 Procalcitonin 0.56 ng/ml (0-0.5) H 01/17/24 19:00 Impressions Foot X-Ray 01/17/24 17:36 XR foot RT 2V HISTORY: 88 years-old Male foot chronic right foot pain COMPARISON: 01/11/2024 TECHNIQUE: 2 views of the right foot FINDINGS: Demineralized appearance of the bones with moderate osteoarthritis. Moderate soft tissue swelling with arterial calcifications. No acute fracture, dislocation or osseous erosion. IMPRESSION: No acute osseous abnormality. ACT 112: Negative or not required by law. The above report was generated using voice recognition software. It may contain grammatical, syntax or spelling errors. Electronically signed by: Otto Vazquez M.D. 01/17/2024 5:58 PM Code Status & VTE Plan Code Status DNR/DNI VTE Prophylaxis Plan VTE Prophylaxis will be ordered: Yes PG Care Time/CCT Total # of Minutes Spent Total Time Spent with Patient: Total time spent is greater than 50% in coordination of care (as documented) at patient's floor/unit and/or counseling patient: Coding Level of Care Code 75058 INT INP/OBS CARE 3/75MIN Diagnoses Diabetic foot ulcer E11.621; L97.509 T2DM (type 2 diabetes mellitus) E11.9 Diabetes mellitus research & analytics manager insulin use: with research & analytics manager use CAD (coronary artery disease) I25.10 Atrial fibrillation I48.91 Hypertension I10 ESRD (end stage renal disease) on dialysis N18.6; Z99.2 Diabetic peripheral neuropathy associated with type 2 diabetes mellitus E11.42 (2) T2DM (type 2 diabetes mellitus) Diabetes mellitus senior care insulin use: with research & analytics manager use
[2024-01-17] MEDS ORDERED: GLUCOSE 10 TAB/TUBE PO PRN (23:45)
[2024-01-17] MEDS ORDERED: CARBOHYDRATES FOR HYPOGLYCEMIA PO PRN (23:45)
[2024-01-17] MEDS ORDERED: ACETAMINOPHEN 325 MG TAB PO PRN (23:45)
[2024-01-17] MEDS ORDERED: DEXTROSE 50% 50 ML SYRINGE IV PRN (23:45)
[2024-01-17] MEDS ORDERED: GLUCOSE 40% GEL 15 GM TUBE PO PRN (23:45)
[2024-01-17] MEDS ORDERED: NITROGLYCERIN SL 0.4 MG/TAB TAB SL PRN (23:45)
[2024-01-17] MEDS ORDERED: ONDANSETRON INJ 2 MG/ML 2 ML VIAL IV PRN (23:45)
[2024-01-17] MEDS ORDERED: GLUCAGON FOR INJ 1 MG VIAL SQ PRN (23:45)
[2024-01-17] MEDS ORDERED: LORazepam 0.5 MG TAB PO PRN (23:45)
[2024-01-18] MEDS: PRAVASTATIN SOD 40 MG TAB PO SCH (01:00)
[2024-01-18] MEDS: INSULIN ASPART PER UNIT CHARGE SC SCH (01:01)
[2024-01-18] MEDS: METOPROLOL TARTRATE 50 MG TAB PO SCH (01:01)
[2024-01-18] MEDS: PIPERACILLIN/TAZOBACTAM 4.5 GM in DEXTROSE 5% MINI-B 100 ML IV SCH (04:23)
--- NOTE | 2024-01-18 06:46 | Electrocardiogram Report ---
Test Reason : Blood Pressure : / mmHG Vent. Rate : 085 BPM Atrial Rate : 000 BPM P-R Int : 000 ms QRS Dur : 082 ms QT Int : 390 ms P-R-T Axes : 000 081 064 degrees QTc Int : 464 ms Atrial fibrillation with premature ventricular or aberrantly conducted complexes Abnormal ECG When compared with ECG of 02-DEC-2023 02:27, No significant change was found Confirmed by Phani Rodriguez ([id number]) on 01/18/2024 6:45:44 AM Referred By: REFERRED SELF Confirmed By:Phani Rodriguez
[2024-01-18 07:38] LABS: Albumin Level 3.2 gm/dl (3.4-5.0); Anion Gap 11 (3-11); Bilirubin,Total 0.5 mg/dl (0.2-1.0); Calcium 8.5 mg/dl (8.6-10.3); Carbon Dioxide 31 mmol/L (21-32); Chloride 94 mmol/L (98-107); Potassium 3.6 mmol/L (3.5-5.1); Sodium 136 mmol/L (136-145)
[2024-01-18] MEDS: amLODIPine BESYLATE 5 MG TAB PO SCH (07:45)
[2024-01-18] MEDS: HEPARIN SOD 5,000 UNIT/0.5 ML VIAL SQ SCH (07:45)
[2024-01-18] MEDS: CALCIUM ACETATE 667 MG CAP/TAB PO SCH (07:45)
[2024-01-18] MEDS: FOLIC ACID 1 MG TAB PO SCH (07:45)
[2024-01-18 07:50] LABS: Alanine Aminotransferase < 3 U/L (7-52); Albumin Globulin Ratio 0.9 (0.9-2); Alkaline Phosphatase 71 U/L (34-104); Aspartate Aminotransferase 13 U/L (13-39); BUN Creatinine Ratio 6.6 (10-20); Blood Urea Nitrogen 30 mg/dl (6-23); Creatinine Clr Calc Pharmacy 12.2 ml/min; Est GFR (African American) 12.4 ml/min; Est GFR (Non-African American) 10.7 ml/min; Globulin 3.5 gm/dl (2.5-4.0); Glucose 153 mg/dl (70-99(Fasting)); Total Protein 6.7 gm/dl (6.0-8.3)
[2024-01-18 07:56] LABS: Estimated Average Glucose 166 mg/dl; Hemoglobin A1C 7.4 % (4.5-5.6)
[2024-01-18 08:52] LABS: Basophils # (auto) 0.02 K/uL (0.00-0.20); Basophils % (auto) 0.3 %; Eosinophils # (auto) 0.14 K/uL (0.00-0.50); Eosinophils % (auto) 2.4 %; Hematocrit (blood only) 31.4 % (42.0-52.0); Hemoglobin 9.7 g/dl (14.0-18.0); Immature Granulocytes # (auto) 0.05 K/uL (0.01-0.20); Immature Granulocytes % (auto) 0.8 %; Lymphocytes % (auto) 16.9 %; Mean Corpuscular Hgb Conc 30.9 g/dL (32.0-36.0); Mean Platelet Volume 10.3 fL (9.4-12.4); Monocytes % (auto) 10.2 %; Neutrophils % (auto) 69.4 %; Platelet Count 117 K/uL (130-400); RDW Coefficient of Variation 15.7 % (11.5-14.5); RDW Standard Deviation 53.6 fL (36.4-46.3); Red Blood Count 3.34 M/uL (4.70-6.10); White Blood Count 5.91 K/ul (4.8-10.8)
[2024-01-18] MEDS ORDERED: NON-FORMULARY MEDICATION (Vit B,C-Iron Fum-Fa-D3-Zinc Ox [Prorenal] 8 mg iron-800 mcg-1,00 PO SCH (09:00)
--- NOTE | 2024-01-18 12:30 | Nephrology Consultation ---
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 Currently on daptomycin. Had dialysis yesterday as regular schedule Saturday, Saturday, Saturday dialysis. Electrolyte, volume status, blood pressure reasonable. Hemoglobin low but relatively stable, chronic. --Continue to monitor volume status and electrolyte over the weekend and plan for dialysis Saturday. --Epogen with dialysis Saturday -- Okay to use subcu heparin for DVT prophylaxis -- Waiting on lower extremity Doppler for evaluation for vascular insufficiency. -- Dose medications for EGFR less than 10 -- right arm nephrology precaution for AV fistula. Thank you for allowing me to participate in your patient's care. It was a pleasure to see Isidro History of Present Illness Reason for Consultation: ESKD on HD Attending Physician: Blake Wagoner MD History of Present Illness Mr. Isidro Madden is a 88 year implement with past medical history significant for ESKD, hypertension, dyslipidemia, DM admitted to the hospital with right foot nonhealing ulcer. Nephrology consult requested for management of hemodialysis while inpatient. EMR records were reviewed in detail during visit. Isidro presented to ER yesterday with worsening nonhealing right foot ulcer despite getting oral antibiotic as an outpatient. About 10 days ago he started noticing his small area of ulceration in his right foot. He presented to ER about a week ago and he was started on cephalexin and was discharged from the ER. Yesterday at dialysis when he had foot check he was noted to have worsening ulcer and he was referred back to ER after dialysis. On admission imaging showed soft tissue swelling around the ulcer. He initially received vancomycin and Zosyn and then continued on IV daptomycin. Labs are otherwise normal. Volume status and blood pressure is acceptable. His hemoglobin was acceptable at 9.7-9.8. Isidro has ESKD due to DKD, dialyzes MWF at [facility] (Dr. Acosta 4hrs 2K 2.5Ca F-180NR EDW 90kg). His medical history is significant for AODM, HTN, hypercholesterolemia, ASCVD, prostate CA s/p prostatectomy and radiation therapy, radiation colitis w/ intermittent LGI bleeding requiring frequent blood transfusion and lung nodules that are being monitored by [facility] Pulmonology. Overall he was otherwise asymptomatic this morning. At this point in showed electrolyte acceptable. Hemoglobin 9.7. Blood pressure was slightly elevated. Allergies Allergy/AdvReac Type Severity Reaction Status Date / Time clarithromycin AdvReac Intermediate confusion Verified 12/24/23 11:01 fish oil AdvReac Intermediate hx of Verified 12/24/23 11:01 hemorrhage in past Sulfa (Sulfonamide AdvReac Intermediate severe Verified 12/24/23 11:01 Antibiotics) agitation/delirium Home Medications Medication Instructions Recorded Confirmed Type vit B complx, C-iron 8 mg-folic 1 tab PO QAM 03/05/19 01/17/24 History acid 800 mcg-D3 1,000 unit-zinc tablet (ProRenal) calcium acetate(phosphat bind) 667 2,001 mg PO TIDM 05/03/21 01/17/24 History mg capsule docusate sodium 50 mg capsule 50 mg PO DAILY PRN Constipation 05/03/21 01/17/24 History (Colace Clear) lorazepam 0.5 mg tablet 0.5 mg PO Q12H PRN anxiety #60 tabs 01/23/22 01/17/24 Rx blood sugar diagnostic (OneTouch 09/25/22 01/17/24 History Ultra Test strips) pravastatin 40 mg tablet 40 mg PO QPM #90 tabs 01/14/23 01/17/24 Rx flash glucose sensor (FreeStyle #6 ea 03/19/23 01/17/24 Rx Frederick 2 Sensor kit) pen needle, diabetic 32 gauge x #200 ea 06/19/23 01/17/24 Rx 5/32" (BD Ultra-Fine Tiffanie Pen Needle) metoprolol tartrate 50 mg tablet 50 mg PO BID #180 tabs 07/16/23 01/17/24 Rx nitroglycerin 0.4 mg sublingual 0.4 mg sublingual Q5M PRN 09/25/23 01/17/24 Rx tablet hypertensive emergency #25 tabs folic acid 1 mg tablet 1 mg PO QAM 12/02/23 01/17/24 History insulin aspar prt-insulin aspart See Rx Instructions .Route 12/19/23 01/17/24 Rx 100 unit/mL (70-30) subcutaneous .COMPLEX #50 mL soln (Novolog Mix 70-30 U-100 Insuln) amlodipine 5 mg tablet 5 mg PO 4XWK #90 tabs 12/23/23 01/17/24 Rx cephalexin 250 mg tablet 250 mg PO BID 10 days #20 tabs 01/11/24 01/17/24 Rx Patient History Medical History Elevated troponin Acute respiratory failure with hypoxia Weakness Hyperkalemia Pulmonary edema Acute respiratory failure Exertional dyspnea Chest pain Phimosis of penis AV fistula AV fistula Anxiety Breathlessness Right shoulder tendinitis Right shoulder pain T2DM (type 2 diabetes mellitus) Acute dyspnea Anemia COVID-19 COPD (chronic obstructive pulmonary disease) Dialysis AV fistula malfunction Emphysema lung suggested per CXR History of blood transfusion 2/2 GIB felt r/t radiation therapy s/p total of 6 units PRBC's since 10/2018 Arteriovenous fistula thrombosis Gout Osteoarthritis Hearing deficit LEFT Diabetic neuropathy Transient ischemic attack (TIA) (2014) 2014--no deficits, no neurologist Thrombocytopenia Pulmonary nodules UNDER SURVEILLANCE Prostate cancer S/P SURGERY, XRT 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 Hanna through Right AV fistula 08/17/19 S/P arteriovenous (AV) fistula creation right 05/[address] Hanna S/P dialysis catheter insertion Permcath + attempted thrombectomy: 04/2019: MAC sedation at [facility] History of esophagogastroduodenoscopy (EGD) + CAUTERIZATION (2/2 GIB) History of colonoscopy History of tooth extraction History of cataract surgery RIGHT/LEFT History of cardiac cath X3 = NO STENTS S/P arteriovenous (AV) fistula creation LEFT Right side recently ballooned and stented in [facility] Amputation of left little finger History of arthroscopy LEFT KNEE History of bowel resection BOWEL LACERATION DURING ATTEMPTING POLYPECTOMY H/O prostatectomy Family History Father Family history of diabetes mellitus Hypertension Brother Prostate cancer Mother Heart disease Hypertension Denies family history of Ovarian cancer Breast cancer Lung cancer Colorectal cancer Social History Smoking Status: Never smoker Second Hand Exposure: No; Do You Dip or Chew Tobacco: No; Hx Alcohol Use: No Hx Substance Use: No Preferred Language: Niuean Communication Ability: Effective Visual Impairment: No Limitations Hearing Ability: Normal Special Education Curriculum Specialist Required: No Beliefs That Will Affect Care: None marital status: / Current Living Situation: Alone Current Living Situation Comment: Lives with Grandson current occupational status: retired How many Children do You have: 1 Feels Safe at Home: Yes Childhood Exposure to Second-Hand Smoke: Yes Diet: regular Diet Comment: regular caffeine: Yes (coffee, once in a while) during the past year weight has: remained stable Dental Care, Regularly: Yes Physical Activity Frequency: Does not Exercise Seatbelt Use: always Sunscreen Use: No Assistive Devices: Denture - Upper, Glasses and Walker Review of Systems Review of Systems: Detailed review of system was done and pertinent positives and negatives are mentioned above. Physical Exam Constitutional: WD/WN, vitals as above no acute distress Eyes: + anicteric sclerae Neck: normal visual inspection Respiratory: no respiratory distress Auscultation: lungs clear to auscultation bilaterally Cardiovascular: Rate/Rhythm: regular rate and regular rhythm Heart Sounds: normal S1 and normal S2 Extremities: + AV fistula (AVF with thrill and bruit.); no edema diminished dorsalis pedis pulses. Gastrointestinal (Abdomen): Inspection/Auscultation: abdomen normal to inspection Percussion/Palpation: abdomen soft; abdomen nontender Musculoskeletal: Extremities: extremities normal to inspection Skin: b/l leg skin erythema, atrophy with ischemic changes, right foot non healing ulcer with erythema. Neurologic: no focal motor deficits Psychiatric: Orientation: alert and oriented x 3 Affect: euthymic affect Results & Data Vital Signs (Past 12 Hours) Vital Signs Temp Pulse Pulse Resp BP Pulse Ox O2 Del Method 01/18/24 08:00 78 01/18/24 07:49 36.7 C 79 16 154/70 H 92 Room Air 01/18/24 02:03 37.1 C 76 18 141/67 H 94 Room Air 01/18/24 02:00 37.1 C 76 18 141/67 H 94 Room Air PG Care Time/CCT Total # of Minutes Spent Total Time Spent with Patient: Total time spent is greater than 50% in coordination of care (as documented) at patient's floor/unit and/or counseling patient: Coding Level of Care Code 29898 INT INP/OBS CARE 3/75MIN Diagnoses End-stage renal disease on hemodialysis N18.6; Z99.2 Anemia D64.9 Anemia type: unspecified type Diabetic foot ulcer E11.621; L97.509 Hypertension I10 (2) Anemia Anemia type: unspecified type Qualified Code(s): D64.9 - Anemia, unspecified
--- NOTE | 2024-01-18 15:08 | Hospitalist Progress Note ---
Date of Service January 18, 2024 Assessment & Plan (1) Cellulitis of right foot: Plan: Currently on Zosyn and daptomycin, day 2. Cultures are pending. (2) Diabetic foot ulcer: Plan: Right lateral foot. Wound care nurse consult requested. Local care. (3) T2DM (type 2 diabetes mellitus): Plan: ADA diet. Sliding scale coverage as needed. (4) CAD (coronary artery disease): Plan: Stable. Continue current medical management (5) Atrial fibrillation: Plan: Stable. He is not on systemic anticoagulation (6) Hypertension: Plan: Stable. Continue current medical management (7) ESRD (end stage renal disease) on dialysis: Plan: Nephrology consultation appreciated. Continue hemodialysis Plan IV antibiotic therapy and local care. OT and PT evaluations when appropriate. Admission and Anticipated Discharge Date Admission Date: January 17, 2024 Subjective Alert and oriented. No distress. His right foot is cellulitic. He is on Zosyn and daptomycin, day 2. Arterial Doppler evaluation of the right leg was accomplished today. Report is pending. Routine x-ray negative for osteo myelitis. Nephrology has been consulted to continue with hemodialysis. Blood culture and wound culture results are pending. Review of Systems 2 Review of Systems: Constitutional-no fever or chills ENT-no blurred vision, no double vision, no epistaxis, no sore throat Respiratory-no cough, no wheezing, no shortness of breath Cardiac-no palpitations, no chest pain, no syncope GI-no nausea, vomiting, diarrhea, melena, hematochezia -no urinary retention, no urinary incontinence, no dysuria, no hematuria Musculoskeletal-right foot cellulitis and pain, no muscle tenderness Skin-no bruising, no rashes, no pruritus. Right foot erythema diffusely Neuro-no isolated weakness, no paresthesia, no weakness Psych-no depression, no anxiety Physical Exam 2 Physical Exam: General-alert and oriented x3, no fever, no chills HEENT-head atraumatic and normocephalic, pupils equal and reactive to light, extraocular muscles intact Neck-no lymphadenopathy or thyromegaly, trachea midline Chest-clear to auscultation. No rales, wheezing or rhonchi Cardiac-irregular rhythm. Controlled rate. Normal S1 and S2 Abdomen-normal bowel sounds, nontender, no hepatosplenomegaly Extremities-right foot cellulitis with erythema and tenderness. Ulceration right mid lateral foot. No apparent drainage Neuro-cranial nerves II through XII intact, motor and sensory function within normal limits, strength symmetrical, no focal deficits Psych-normal affect, normal mood Results & Data Results & Data Vital Signs (Past 12 Hours) Vital Signs Temp Pulse Pulse Resp BP Pulse Ox O2 Del Method 01/18/24 12:34 36.8 C 74 20 139/47 L 93 Room Air 01/18/24 08:00 78 01/18/24 07:49 36.7 C 79 16 154/70 H 92 Room Air Laboratory Results 01/18/24 08:24 01/18/24 06:53 PG Care Time/CCT Total # of Minutes Spent Total Time Spent with Patient: Total time spent is greater than 50% in coordination of care (as documented) at patient's floor/unit and/or counseling patient: Coding Level of Care Code 64691 SUB INP/OBS CARE 3/50MIN Diagnoses Cellulitis of right foot L03.115 Diabetic foot ulcer E11.621; L97.509 T2DM (type 2 diabetes mellitus) E11.9 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
[2024-01-18] MEDS: DAPTOmycin 425 MG in SYRINGE 0 ML IV SCH (17:08)
--- NOTE | 2024-01-18 19:03 | Ultrasound Report ---
US arterial duplex LE BI CLINICAL HISTORY: diabetic foot ulcer TECHNIQUE: Real-time grayscale and color and spectral Doppler ultrasound imaging of the bilateral low er extremity arteries was performed. Measurements calculated based on NASCET criteria. COMPARISON: None available at the time of this dictation. FINDINGS: RIGHT: Common femoral artery: Biphasic waveforms. Peak systolic velocity (PSV) 86 cm/s. Deep femoral artery: Biphasic waveforms. PSV 72 cm/s. Superficial femoral artery: Monophasic waveforms. PSV 164 cm/s. Popliteal artery: Monophasic waveforms. PSV 111 cm/s. Anterior tibial artery: Monophasic waveforms. PSV 84 cm/s. Posterior tibial artery: Monophasic waveforms. PSV 129 cm/s. No flow is seen in the proximal and mid artery. Peroneal artery: Monophasic waveforms. PSV 116 cm/s. Dorsalis pedis: Monophasic waveforms. PSV 191 cm/s. LEFT: Common femoral artery: Biphasic waveforms. Peak systolic velocity (PSV) 70 cm/s. Deep femoral artery: Biphasic waveforms. PSV 47 cm/s. Superficial femoral artery: Monophasic waveforms. PSV 144 cm/s. Popliteal artery: Monophasic waveforms. PSV 110 cm/s. Anterior tibial artery: Monophasic waveforms. PSV 177 cm/s. Posterior tibial artery: Monophasic waveforms. PSV 115 cm/s. Peroneal artery: Monophasic waveforms. PSV 68 cm/s. Dorsalis pedis: Monophasic waveforms. PSV 111 cm/s. ANKLE/BRACHIAL INDEX (LORI): Brachial: Right not measured Left: 112 mmHg. Ankle (dorsalis pedis): Right: 121 mmHg. Left: 147 mmHg. Ankle (posterior tibial): Right: 127 mmHg. Left: 108 mmHg. Ankle/brachial index: Right: 1.13, Left: 1.31. Reference ranges: Normal Ankle/Brachial Index (LORI) 1.0-1.4; 0.91-0.99 borderline; < or = 0.9 abnormal (0.7-0.89 mild, 0.51-0.69 moderate, < or = 0.5 severe peripheral arterial disease). Normal Toe/Brachial Index (TBI) > or = 0.6; < 0.6 abnormal (0.34-0.59 mild, 0.12-0.34 moderate, < or = 0.11 severe peripheral arterial disease). IMPRESSION: 1. Bilateral stenosis with monophasic waveforms in the arteries of the leg and somewhat parvus tardu s waveforms. No flow is seen in the proximal and midportion of the right posterior tibial artery. 2. Normal ankle-brachial indices. ACT 112: Negative or not required by law. Electronically signed by: Stan Stern M.D. 01/18/2024 7:01 PM
[2024-01-19 09:06] LABS: Basophils # (auto) 0.02 K/uL (0.00-0.20); Basophils % (auto) 0.3 %; Eosinophils # (auto) 0.19 K/uL (0.00-0.50); Eosinophils % (auto) 3.1 %; Hemoglobin 9.2 g/dl (14.0-18.0); Immature Granulocytes # (auto) 0.04 K/uL (0.01-0.20); Immature Granulocytes % (auto) 0.7 %; Lymphocytes % (auto) 19.5 %; Mean Corpuscular Hemoglobin 28.8 pg (25.0-34.0); Mean Corpuscular Hgb Conc 30.7 g/dL (32.0-36.0); Monocytes # (auto) 0.55 K/uL (0.11-0.59); Monocytes % (auto) 8.9 %; Neutrophils # (auto) 4.15 K/uL (1.40-6.50); Neutrophils % (auto) 67.5 %; Platelet Count 109 K/uL (130-400); Red Blood Count 3.19 M/uL (4.70-6.10); White Blood Count 6.15 K/ul (4.8-10.8)
[2024-01-19 09:20] LABS: BUN Creatinine Ratio 8.5 (10-20); Calcium 8.7 mg/dl (8.6-10.3); Creatinine Clr Calc Pharmacy 8.5 ml/min; Est GFR (African American) 8.2 ml/min; Est GFR (Non-African American) 7.1 ml/min; Potassium 4.3 mmol/L (3.5-5.1)
--- NOTE | 2024-01-19 11:59 | Nephrology Progress Note ---
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 Currently on daptomycin. Electrolyte, volume status, blood pressure reasonable. Hemoglobin low but relatively stable, chronic. Lower extremity arterial Doppler showed bilateral stenosis in the arteries of the leg. No flow is seen in the proximal and midportion of the right posterior tibial artery. --Continue to monitor volume status and electrolyte over the weekend and plan for dialysis Saturday. --Epogen with dialysis Saturday --Okay to use subcu heparin for DVT prophylaxis --Waiting on vascular surgery consult with lower extremity vascular insufficiency. --Dose medications for EGFR less than 10 --right arm nephrology precaution for AV fistula. Admission and Anticipated Discharge Date Admission Date: January 17, 2024 Rosa Maria Felix was seen this morning. Overall he is clinically about the same, no shortness of breath or chest pain, p.o. intake has been decent. Blood pressure relatively low but asymptomatic. Hemoglobin stable, electrolyte acceptable. Review of Systems Review of Systems: Detailed review of system was done and pertinent positives and negatives are mentioned above. Physical Exam Constitutional: WD/WN, vitals as above no acute distress Psychiatric: Orientation: alert and oriented x 3 Affect: euthymic affect Results & Data Vital Signs (Past 12 Hours) Vital Signs Temp Pulse Pulse Resp BP Pulse Ox O2 Del Method 01/19/24 09:33 78 01/19/24 09:31 77 01/19/24 08:31 37.1 C 76 16 114/45 L 96 Room Air 01/19/24 03:12 37.1 C 75 20 126/57 L 93 Room Air 01/19/24 00:00 70 PG Care Time/CCT Total # of Minutes Spent Total Time Spent with Patient: Total time spent is greater than 50% in coordination of care (as documented) at patient's floor/unit and/or counseling patient: Coding Level of Care Code 44593 SUB INP/OBS CARE 1/25MIN Diagnoses End-stage renal disease on hemodialysis N18.6; Z99.2 Anemia D64.9 Anemia type: unspecified type Diabetic foot ulcer E11.621; L97.509 Hypertension I10 (2) Anemia Anemia type: unspecified type Qualified Code(s): D64.9 - Anemia, unspecified
--- NOTE | 2024-01-19 12:10 | Hospitalist Progress Note ---
Date of Service January 19, 2024 Assessment & Plan (1) Cellulitis of right foot: Plan: Currently on Zosyn and daptomycin, day 3. MRSA isolated. Fortunately, blood cultures are negative. (2) Diabetic foot ulcer: Plan: Right lateral foot. Wound care nurse consult requested. Local care. (3) T2DM (type 2 diabetes mellitus): Plan: ADA diet. Sliding scale coverage as needed. (4) CAD (coronary artery disease): Plan: Stable. Continue current medical management (5) Atrial fibrillation: Plan: Stable. He is not on systemic anticoagulation (6) Hypertension: Plan: Stable. Continue current medical management (7) ESRD (end stage renal disease) on dialysis: Plan: Nephrology consultation appreciated. Continue hemodialysis (8) Peripheral arterial disease: Plan: Abnormal arterial Doppler evaluation bilateral legs. Vascular surgery consultation requested. Plan IV antibiotic therapy and local care. OT and PT evaluations when appropriate. Admission and Anticipated Discharge Date Admission Date: January 17, 2024 Subjective Alert and oriented. No distress. Arterial Doppler evaluation of both lower extremities is abnormal although bilateral LORI are within normal limits. Vascular surgery consultation requested. He remains on Zosyn and daptomycin, day 3. MRSA isolated from the foot wound. Nephrology is managing his hemodialysis schedule. Appreciate wound nurse assistance. Glucose 199 this morning Review of Systems 2 Review of Systems: Constitutional-no fever or chills ENT-no blurred vision, no double vision, no epistaxis, no sore throat Respiratory-no cough, no wheezing, no shortness of breath Cardiac-no palpitations, no chest pain, no syncope GI-no nausea, vomiting, diarrhea, melena, hematochezia -no urinary retention, no urinary incontinence, no dysuria, no hematuria Musculoskeletal-right foot cellulitis and pain, no muscle tenderness Skin-no bruising, no rashes, no pruritus. Right foot erythema diffusely Neuro-no isolated weakness, no paresthesia, no weakness Psych-no depression, no anxiety Physical Exam 2 Physical Exam: General-alert and oriented x3, no fever, no chills HEENT-head atraumatic and normocephalic, pupils equal and reactive to light, extraocular muscles intact Neck-no lymphadenopathy or thyromegaly, trachea midline Chest-clear to auscultation. No rales, wheezing or rhonchi Cardiac-irregular rhythm. Controlled rate. Normal S1 and S2 Abdomen-normal bowel sounds, nontender, no hepatosplenomegaly Extremities-right foot cellulitis with erythema and tenderness. Ulceration right mid lateral foot. No apparent drainage Neuro-cranial nerves II through XII intact, motor and sensory function within normal limits, strength symmetrical, no focal deficits Psych-normal affect, normal mood Results & Data Results & Data Vital Signs (Past 12 Hours) Vital Signs Temp Pulse Pulse Resp BP Pulse Ox O2 Del Method 01/19/24 09:33 78 01/19/24 09:31 77 01/19/24 08:31 37.1 C 76 16 114/45 L 96 Room Air 01/19/24 03:12 37.1 C 75 20 126/57 L 93 Room Air Laboratory Results 01/19/24 08:20 01/19/24 08:33 PG Care Time/CCT Total # of Minutes Spent Total Time Spent with Patient: Total time spent is greater than 50% in coordination of care (as documented) at patient's floor/unit and/or counseling patient: Coding Level of Care Code 79692 SUB INP/OBS CARE 3/50MIN Diagnoses Cellulitis of right foot L03.115 Diabetic foot ulcer E11.621; L97.509 T2DM (type 2 diabetes mellitus) E11.9 Diabetes mellitus assisted insulin use: with exam proctor use CAD (coronary artery disease) I25.10 Atrial fibrillation I48.91 Hypertension I10 ESRD (end stage renal disease) on dialysis N18.6; Z99.2 Peripheral arterial disease I73.9 (3) T2DM (type 2 diabetes mellitus) Diabetes mellitus assisted insulin use: with assisted use
[2024-01-20 06:08] LABS: Basophils # (auto) 0.01 K/uL (0.00-0.20); Basophils % (auto) 0.1 %; Eosinophils # (auto) 0.26 K/uL (0.00-0.50); Eosinophils % (auto) 3.8 %; Hematocrit (blood only) 29.4 % (42.0-52.0); Hemoglobin 9.1 g/dl (14.0-18.0); Immature Granulocytes # (auto) 0.07 K/uL (0.01-0.20); Lymphocytes # (auto) 1.13 K/uL (1.20-3.40); Lymphocytes % (auto) 16.6 %; Mean Corpuscular Hemoglobin 28.5 pg (25.0-34.0); Mean Corpuscular Volume 92.2 fL (80.0-100.0); Mean Platelet Volume 10.4 fL (9.4-12.4); Monocytes # (auto) 0.59 K/uL (0.11-0.59); Monocytes % (auto) 8.7 %; Neutrophils # (auto) 4.73 K/uL (1.40-6.50); Neutrophils % (auto) 69.8 %; Platelet Count 116 K/uL (130-400); RDW Coefficient of Variation 16.2 % (11.5-14.5); RDW Standard Deviation 54.3 fL (36.4-46.3); Red Blood Count 3.19 M/uL (4.70-6.10); White Blood Count 6.79 K/ul (4.8-10.8)
[2024-01-20 06:37] LABS: BUN Creatinine Ratio 8.3 (10-20); Calcium 8.7 mg/dl (8.6-10.3); Creatinine Clr Calc Pharmacy 6.2 ml/min; Est GFR (African American) 5.6 ml/min; Est GFR (Non-African American) 4.9 ml/min; Potassium 4.5 mmol/L (3.5-5.1)
--- NOTE | 2024-01-20 09:53 | Nephrology Progress Note ---
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 Currently on daptomycin. Electrolyte, volume status, blood pressure reasonable. Hemoglobin low but relatively stable, chronic. Lower extremity arterial Doppler showed bilateral stenosis in the arteries of the leg. No flow is seen in the proximal and midportion of the right posterior tibial artery. --Tolerating dialysis, adjust UF as he has been having ongoing diarrhea over the weekend and IDWG was relatively lower compared to his usual weight gain. --Epogen 20,000 units with dialysis today --Dose medications for EGFR less than 10 --right arm nephrology precaution for AV fistula. Admission and Anticipated Discharge Date Admission Date: January 17, 2024 Rosa Maria Felix was seen and examined during dialysis this morning. He feels well but reports having ongoing diarrhea since he was started on IV antibiotic. Hemoglobin low but stable. Electrolyte acceptable. Blood pressure fair. Review of Systems Review of Systems: Detailed review of system was done and pertinent positives and negatives are mentioned above. Physical Exam Constitutional: WD/WN, vitals as above no acute distress Respiratory: no respiratory distress Auscultation: lungs clear to auscultation bilaterally Cardiovascular: Rate/Rhythm: regular rate and regular rhythm Heart Sounds: normal S1 and normal S2 Extremities: + AV fistula (AVF with thrill and bruit.); no edema Musculoskeletal: rt foot ulcer Neurologic: no focal motor deficits Psychiatric: Orientation: alert and oriented x 3 Affect: euthymic affect Results & Data Vital Signs (Past 12 Hours) Vital Signs Temp Pulse Resp BP Pulse Ox O2 Del Method 01/20/24 07:25 36.7 C 83 16 120/64 92 Room Air PG Care Time/CCT Total # of Minutes Spent Total Time Spent with Patient: Total time spent is greater than 50% in coordination of care (as documented) at patient's floor/unit and/or counseling patient: Coding Level of Care Code 77654 SUB INP/OBS CARE 2/35MIN Diagnoses End-stage renal disease on hemodialysis N18.6; Z99.2 Anemia D64.9 Anemia type: unspecified type Diabetic foot ulcer E11.621; L97.509 Hypertension I10 (2) Anemia Anemia type: unspecified type Qualified Code(s): D64.9 - Anemia, unspecified
--- NOTE | 2024-01-20 09:56 | Consultation ---
Date of Consultation January 20, 2024 Assessment & Plan (1) Peripheral arterial disease: Pt with mild PAD on US and +1 RLE DP pulse. No sx of rest pain or claudication. Pt has had the wound for less than 2 weeks and has not been receiving any consistent regular care of it. Recommend local wound care and abx as needed per medicine. Recommend podiatry eval and/or outpt wound clinic follow up. His RUE AVF is functioning well. Please call if needed. History of Present Illness Reason for Consultation: PAD Attending Physician: Alireaz Vasques History of Present Illness 88 yo m with multiple medical problems, including ESRD on HD, a fib, CHF, DMII, NSTEMI, HTN, anemia, venous stasis, CAD, liver cirrhosis, prostate ca, GAVE with chronic upper GI bleeding, pulmonary, admitted with R foot ulcer infection, seen in consultation today for PAD. Pt known to Dr Hanna for AVF creation in 2019. Per pt this is functioning well. States he wore new slippers which rubbed his R foot about 1-2 weeks ago. States he came to [facility] ED for eval and was given 10 days of abx, but has not finished them yet. Went to outpt HD, and staff there concerned about possible infection and sent him to [facility]. Pt states pain in the R foot wound. Admits chronic skin changes to BLE and states his daughter helps him keep his legs moisturized with eucerin cream. Denies MULLEN, fever, chest pain, SOB, abd pain, N/V, rest pain, claudication, other nonhealing wounds, other complaints. Arterial US demonstrates biphaisc flow to BLE, RLE with 2 vessel runoff to foot. Allergies Allergy/AdvReac Type Severity Reaction Status Date / Time clarithromycin AdvReac Intermediate confusion Verified 12/24/23 11:01 fish oil AdvReac Intermediate hx of Verified 12/24/23 11:01 hemorrhage in past Sulfa (Sulfonamide AdvReac Intermediate severe Verified 12/24/23 11:01 Antibiotics) agitation/delirium Home Medications Medication Instructions Recorded Confirmed Type vit B complx, C-iron 8 mg-folic 1 tab PO QAM 03/05/19 01/17/24 History acid 800 mcg-D3 1,000 unit-zinc tablet (ProRenal) calcium acetate(phosphat bind) 667 2,001 mg PO TIDM 05/03/21 01/17/24 History mg capsule docusate sodium 50 mg capsule 50 mg PO DAILY PRN Constipation 05/03/21 01/17/24 History (Colace Clear) lorazepam 0.5 mg tablet 0.5 mg PO Q12H PRN anxiety #60 tabs 01/23/22 01/17/24 Rx blood sugar diagnostic (OneTouch 09/25/22 01/17/24 History Ultra Test strips) pravastatin 40 mg tablet 40 mg PO QPM #90 tabs 01/14/23 01/17/24 Rx flash glucose sensor (FreeStyle #6 ea 03/19/23 01/17/24 Rx Frederick 2 Sensor kit) pen needle, diabetic 32 gauge x #200 ea 06/19/23 01/17/24 Rx 32" (BD Ultra-Fine Tiffanie Pen Needle) metoprolol tartrate 50 mg tablet 50 mg PO BID #180 tabs 07/16/23 01/17/24 Rx nitroglycerin 0.4 mg sublingual 0.4 mg sublingual Q5M PRN 09/25/23 01/17/24 Rx tablet hypertensive emergency #25 tabs folic acid 1 mg tablet 1 mg PO QAM 12/02/23 01/17/24 History insulin aspar prt-insulin aspart See Rx Instructions .Route 12/19/23 01/17/24 Rx 100 unit/mL (70-30) subcutaneous .COMPLEX #50 mL soln (Novolog Mix 70-30 U-100 Insuln) amlodipine 5 mg tablet 5 mg PO 4XWK #90 tabs 12/23/23 01/17/24 Rx cephalexin 250 mg tablet 250 mg PO BID 10 days #20 tabs 01/11/24 01/17/24 Rx Patient History Medical History Elevated troponin Acute respiratory failure with hypoxia Weakness Hyperkalemia Pulmonary edema Acute respiratory failure Exertional dyspnea Chest pain Phimosis of penis AV fistula AV fistula Anxiety Breathlessness Right shoulder tendinitis Right shoulder pain T2DM (type 2 diabetes mellitus) Acute dyspnea Anemia COVID-19 COPD (chronic obstructive pulmonary disease) Dialysis AV fistula malfunction Emphysema lung suggested per CXR History of blood transfusion 2/2 GIB felt r/t radiation therapy s/p total of 6 units PRBC's since 10/2018 Arteriovenous fistula thrombosis Gout Osteoarthritis Hearing deficit LEFT Diabetic neuropathy Transient ischemic attack (TIA) (2014) 2014--no deficits, no neurologist Thrombocytopenia Pulmonary nodules UNDER SURVEILLANCE Prostate cancer S/P SURGERY, XRT 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 Hanna through Right AV fistula 08/17/19 S/P arteriovenous (AV) fistula creation right 05/[address] Hanna S/P dialysis catheter insertion Permcath + attempted thrombectomy: 04/2019: MAC sedation at [facility] History of esophagogastroduodenoscopy (EGD) + CAUTERIZATION (2/2 GIB) History of colonoscopy History of tooth extraction History of cataract surgery RIGHT/LEFT History of cardiac cath X3 = NO STENTS S/P arteriovenous (AV) fistula creation LEFT Right side recently ballooned and stented in [facility] Amputation of left little finger History of arthroscopy LEFT KNEE History of bowel resection BOWEL LACERATION DURING ATTEMPTING POLYPECTOMY H/O prostatectomy Family History Father Family history of diabetes mellitus Hypertension Brother Prostate cancer Mother Heart disease Hypertension Denies family history of Ovarian cancer Breast cancer Lung cancer Colorectal cancer Social History Smoking Status: Never smoker Second Hand Exposure: No; Do You Dip or Chew Tobacco: No; Hx Alcohol Use: No Hx Substance Use: No Preferred Language: Mohawk Communication Ability: Effective Visual Impairment: No Limitations Hearing Ability: Normal Metal 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 Protective Coating Required: No Beliefs That Will Affect Care: None marital status: / Current Living Situation: Alone Current Living Situation Comment: Lives with Grandson current occupational status: retired How many Children do You have: 1 Feels Safe at Home: Yes Childhood Exposure to Second-Hand Smoke: Yes Diet: regular Diet Comment: regular caffeine: Yes (coffee, once in a while) during the past year weight has: remained stable Dental Care, Regularly: Yes Physical Activity Frequency: Does not Exercise Seatbelt Use: always Sunscreen Use: No Assistive Devices: Walker Review of Systems Review of Systems: All systems reviewed & are unremarkable except as noted in HPI & below Physical Exam Constitutional: WD/WN, vitals as above cooperative and comfortable; not in distress ENMT: Ears: + hearing impairment Respiratory: normal respiratory effort, lungs clear to auscultation Auscultation: + diminished lung sounds Cardiovascular: Rate/Rhythm: + irregularly irregular Vessels: posterior tibial pulses present (nonpalpable), dorsalis pedis pulses present (RLE +1, LLE nonpalpable) and radial pulses present; + abnormal peripheral pulses Extremities: normal capillary refill and + AV fistula (RUE + thrill/bruit) Gastrointestinal (Abdomen): Inspection/Auscultation: abdomen normal to inspection and normal bowel sounds Percussion/Palpation: abdomen soft; abdomen nontender Musculoskeletal: no cyanosis or clubbing, extremities motor strength 5/5 Skin: + ulcer (R plantar surface lateral foot, with eschar. ) purplish/red discoloration to BLE lower legs consistent with chronic venous insufficiency 2 small fluid filled blisters dorsal R f oot Neurologic: moves all extremities and awake; no focal motor deficits and not confused Psychiatric: A+Ox3, euthymic affect Results & Data Vital Signs (Past 12 Hours) Vital Signs Temp Pulse Resp BP Pulse Ox O2 Del Method 01/20/24 07:25 36.7 C 83 16 120/64 92 Room Air
[2024-01-20] MEDS: EPOETIN ALFA 20,000 UNITS/ML VIAL IV STA (12:11)
--- NOTE | 2024-01-20 16:11 | Hospitalist Progress Note ---
Date of Service January 20, 2024 Assessment & Plan (1) Cellulitis of right foot: Plan: Likely related to diabetic foot ulcer - Foot xray: moderate soft tissue swelling, no osseous involvement - Currently on Zosyn and daptomycin, first day 01/16 - Wound culture: MRSA isolated - blood cultures: no growth that 48 hours - wound care nurse consulted - Podiatry consulted (2) Peripheral arterial disease: Plan: Abnormal arterial Doppler evaluation bilateral legs - no flow in the proximal and midportion or right posterior tibial artery Vascular surgery consulted - no acute surgical intervention - recommend continued wound care - recommend podiatry eval (3) ESRD (end stage renal disease) on dialysis: Plan: MWF dialysis outpatient Nephrology consultation appreciated -Continue hemodialysis -Received Epogen 01/19 Renally dose meds (4) T2DM (type 2 diabetes mellitus): Plan: ADA diet. HgbA1c 01/16: 7.4, however likely slightly inaccurate with dialysis Continue sliding scale coverage (5) CAD (coronary artery disease): Plan: Stable. Continue metoprolol Continue pravastatin (6) Atrial fibrillation: Plan: Stable. He is not on systemic anticoagulation (7) Hypertension: Plan: Stable. Continue Amlodopine Plan Dispo: continued inpatient stay - await wound care/podiatry input DVT proh: Heparin SQ q 12h Admission and Anticipated Discharge Date Admission Date: January 17, 2024 Subjective Patient seen sititng up in the chair after dialysis. Reports minimal pain in the foot unless he steps on something wrong, just noticed the wound a week and a half ago. Reports fair management of his sugars at home - higher fasting AM levels. continues with diarrhea. No bloody. denies abdominal pain. Review of Systems Review of Systems: All systems reviewed & are unremarkable except as noted in Subjective Physical Exam Physical Exam: General: NAD, VS as above Resp: normal respiratory effort, lungs clear to auscultation CV: RRR, no murmur, Abd: non tender, + hernia, no hepatosplenomegaly Extremities: Moves all extremities, scaling over bilateral lower extremities consistent with venous stasis, wound over right 5th metatarsal Results & Data Results & Data Vital Signs (Past 12 Hours) Vital Signs Temp Pulse Pulse Pulse Resp BP BP 01/20/24 14:06 36.6 C 83 12 139/61 01/20/24 13:55 36.5 C 91 H 136/82 01/20/24 13:30 125/68 01/20/24 13:00 81 123/66 01/20/24 12:30 72 133/69 01/20/24 12:00 59 L 117/63 01/20/24 11:30 77 113/59 L 01/20/24 11:00 81 116/61 01/20/24 10:30 80 94/52 L 01/20/24 10:00 68 116/55 L 01/20/24 09:48 69 121/55 L 01/20/24 09:47 01/20/24 09:39 36.5 C 81 01/20/24 07:25 36.7 C 83 16 120/64 Pulse Ox O2 Del Method 01/20/24 14:06 96 Room Air 01/20/24 13:55 01/20/24 13:30 01/20/24 13:00 01/20/24 12:30 01/20/24 12:00 01/20/24 11:30 01/20/24 11:00 01/20/24 10:30 01/20/24 10:00 01/20/24 09:48 01/20/24 09:47 Room Air 01/20/24 09:39 01/20/24 07:25 92 Room Air Laboratory Results cbc and chemistry reviewed PG Care Time/CCT Total # of Minutes Spent Total Time Spent with Patient: Total time spent is greater than 50% in coordination of care (as documented) at patient's floor/unit and/or counseling patient: Coding Level of Care Code 27803 SUB INP/OBS CARE 3/50MIN Diagnoses Cellulitis of right foot L03.115 Peripheral arterial disease I73.9 ESRD (end stage renal disease) on dialysis N18.6; Z99.2 T2DM (type 2 diabetes mellitus) E11.9 Diabetes mellitus intermediate insulin use: with intermediate use CAD (coronary artery disease) I25.10 Atrial fibrillation I48.91 Hypertension I10 (4) T2DM (type 2 diabetes mellitus) 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
--- NOTE | 2024-01-20 16:57 | Podiatry Consultation ---
Date of Consultation January 20, 2024 Assessment & Plan (1) Peripheral arterial disease: (2) Cellulitis of right foot: (3) Diabetic foot ulcer: Diabetes mellitus type: type 2 Diabetic foot ulcer location: midfoot Laterality: right Non-pressure ulcer stage: with fat layer exposed Qualified Code(s): E11.621 - Type 2 diabetes mellitus with foot ulcer; L97.412 - Non-pressure chronic ulcer of right heel and midfoot with fat layer exposed Plan - Examined and evaluated. - Ordered Santyl ointment for enzymatic debridement. Debrided at bedside to subcutaneous tissue. - Daily dressing changes by nursing with Santyl. - Continue antibiotics for cellulitis; no drainable abscess or bone involvement suspected - Can d/c home on oral antibiotics and f/u with us or his primary podiatry team for continued wound care. - Would recommend wound care consult for outpatient planning as well. History of Present Illness Reason for Consultation: Right foot wound and cellulitis Attending Physician: Alireza Vasques History of Present Illness Patient presents to the hospital for treatment of acute onset of right cellulitis in the wound. He states that this has not been present for that long, likely only in the last couple of weeks. Over that time, it has worsened with increasing pain and redness to his lower extremity. He denies any known cause and simply believes it has been worse on tone. He has seen a local podiatry group for foot care in the past. He did not follow up with them for this as he has noticed a worsening symptoms more acutely. He denies any systemic signs of infection at this time. He also denies any other recent medical history change. Overall, he is feeling well now with days of antibiotics.. Allergies Allergy/AdvReac Type Severity Reaction Status Date / Time clarithromycin AdvReac Intermediate confusion Verified 12/24/23 11:01 fish oil AdvReac Intermediate hx of Verified 12/24/23 11:01 hemorrhage in past Sulfa (Sulfonamide AdvReac Intermediate severe Verified 12/24/23 11:01 Antibiotics) agitation/delirium Home Medications Medication Instructions Recorded Confirmed Type vit B complx, C-iron 8 mg-folic 1 tab PO QAM 03/05/19 01/17/24 History acid 800 mcg-D3 1,000 unit-zinc tablet (ProRenal) calcium acetate(phosphat bind) 667 2,001 mg PO TIDM 05/03/21 01/17/24 History mg capsule docusate sodium 50 mg capsule 50 mg PO DAILY PRN Constipation 05/03/21 01/17/24 History (Colace Clear) lorazepam 0.5 mg tablet 0.5 mg PO Q12H PRN anxiety #60 tabs 01/23/22 01/17/24 Rx blood sugar diagnostic (OneTouch 09/25/22 01/17/24 History Ultra Test strips) pravastatin 40 mg tablet 40 mg PO QPM #90 tabs 01/14/23 01/17/24 Rx flash glucose sensor (FreeStyle #6 ea 03/19/23 01/17/24 Rx Frederick 2 Sensor kit) pen needle, diabetic 32 gauge x #200 ea 06/19/23 01/17/24 Rx 532" (BD Ultra-Fine Tiffanie Pen Needle) metoprolol tartrate 50 mg tablet 50 mg PO BID #180 tabs 07/16/23 01/17/24 Rx nitroglycerin 0.4 mg sublingual 0.4 mg sublingual Q5M PRN 09/25/23 01/17/24 Rx tablet hypertensive emergency #25 tabs folic acid 1 mg tablet 1 mg PO QAM 12/02/23 01/17/24 History insulin aspar prt-insulin aspart See Rx Instructions .Route 12/19/23 01/17/24 Rx 100 unit/mL (70-30) subcutaneous .COMPLEX #50 mL soln (Novolog Mix 70-30 U-100 Insuln) amlodipine 5 mg tablet 5 mg PO 4XWK #90 tabs 12/23/23 01/17/24 Rx L.acidop,casei,lactis,rham-B.lact,lizy 2 cap PO DAILY 1 week #14 caps 01/21/24 Rx 625 mg (10 billion cell) capsule (Advanced Probiotic) clindamycin HCl 150 mg capsule 450 mg (3 x 150 mg) PO Q8H 4 days 01/21/24 Rx #36 caps collagenase clostridium histo. 250 1 applic EXT DAILY #30 grams 01/21/24 Rx unit/gram topical ointment (Santyl) loperamide 2 mg capsule 2 mg PO Q2H PRN loose stool 5 days 01/21/24 Rx #10 caps Patient History Medical History Elevated troponin Acute respiratory failure with hypoxia Weakness Hyperkalemia Pulmonary edema Acute respiratory failure Exertional dyspnea Chest pain Phimosis of penis AV fistula AV fistula Anxiety Breathlessness Right shoulder tendinitis Right shoulder pain T2DM (type 2 diabetes mellitus) Acute dyspnea Anemia COVID-19 COPD (chronic obstructive pulmonary disease) Dialysis AV fistula malfunction Emphysema lung suggested per CXR History of blood transfusion 2/2 GIB felt r/t radiation therapy s/p total of 6 units PRBC's since 10/2018 Arteriovenous fistula thrombosis Gout Osteoarthritis Hearing deficit LEFT Diabetic neuropathy Transient ischemic attack (TIA) (2014) 2014--no deficits, no neurologist Thrombocytopenia Pulmonary nodules UNDER SURVEILLANCE Prostate cancer S/P SURGERY, XRT 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 Hanna through Right AV fistula 08/17/19 S/P arteriovenous (AV) fistula creation right 05/[address] Hanna S/P dialysis catheter insertion Permcath + attempted thrombectomy: 04/2019: MAC sedation at [facility] History of esophagogastroduodenoscopy (EGD) + CAUTERIZATION (2/2 GIB) History of colonoscopy History of tooth extraction History of cataract surgery RIGHT/LEFT History of cardiac cath X3 = NO STENTS S/P arteriovenous (AV) fistula creation LEFT Right side recently ballooned and stented in [facility] Amputation of left little finger History of arthroscopy LEFT KNEE History of bowel resection BOWEL LACERATION DURING ATTEMPTING POLYPECTOMY H/O prostatectomy Family History Father Family history of diabetes mellitus Hypertension Brother Prostate cancer Mother Heart disease Hypertension Denies family history of Ovarian cancer Breast cancer Lung cancer Colorectal cancer Social History Smoking Status: Never smoker Second Hand Exposure: No; Do You Dip or Chew Tobacco: No; Hx Alcohol Use: No Hx Substance Use: No Preferred Language: Spanish Communication Ability: Effective Visual Impairment: No Limitations Hearing Ability: Normal Local Driver Required: No Beliefs That Will Affect Care: None marital status: / Current Living Situation: Alone Current Living Situation Comment: Lives with Grandson current occupational status: retired How many Children do You have: 1 Feels Safe at Home: Yes Childhood Exposure to Second-Hand Smoke: Yes Diet: regular Diet Comment: regular caffeine: Yes (coffee, once in a while) during the past year weight has: remained stable Dental Care, Regularly: Yes Physical Activity Frequency: Does not Exercise Seatbelt Use: always Sunscreen Use: No Assistive Devices: Walker Review of Systems Review of Systems: All systems reviewed & are unremarkable except as noted in HPI & below Constitutional: no fever, no chills and no fatigue Eyes: no problem reported Ear, Nose, Mouth, Throat: no problem reported Respiratory: no problem reported Cardiovascular: no problem reported Gastrointestinal: no problem reported Genitourinary: no problem reported Musculoskeletal: no problem reported Integumentary: + non-healing lesions, + skin ulcer and + erythema Neurologic: no problem reported Psychiatric: no problem reported Physical Exam Physical Exam: Right lower extremity focused exam: DP/PT pulses nonpalpable. CFT is brisk to the digits. Skin is thin and atrophic with no hair growth noted. Capillary refill time is brisk to the digits. Semirigid hammertoe deformities are noted to all digits. Superficial ulceration is noted to the right fifth metatarsophalangeal joint. This does not probe past the level of the subcutaneous tissue though is large, measuring 2 x 3 cm. The base is fibrotic. No ascending cellulitis is appreciated. No palpable fluctuance is appreciated. No bony involvement noted on x-ray imaging or MR imaging. Protective sensation is absent to the bilateral lower extremity. There is still pain on palpation of this ulceration, however. Constitutional: WD/WN, vitals as above Results & Data Vital Signs (Past 12 Hours) Vital Signs Temp Pulse Pulse Pulse Resp BP BP 01/20/24 14:06 36.6 C 83 12 139/61 01/20/24 13:55 36.5 C 91 H 136/82 01/20/24 13:30 125/68 01/20/24 13:00 81 123/66 01/20/24 12:30 72 133/69 01/20/24 12:00 59 L 117/63 01/20/24 11:30 77 113/59 L 01/20/24 11:00 81 116/61 01/20/24 10:30 80 94/52 L 01/20/24 10:00 68 116/55 L 01/20/24 09:48 69 121/55 L 01/20/24 09:47 01/20/24 09:39 36.5 C 81 01/20/24 07:25 36.7 C 83 16 120/64 Pulse Ox O2 Del Method 01/20/24 14:06 96 Room Air 01/20/24 13:55 01/20/24 13:30 01/20/24 13:00 01/20/24 12:30 01/20/24 12:00 01/20/24 11:30 01/20/24 11:00 01/20/24 10:30 01/20/24 10:00 01/20/24 09:48 01/20/24 09:47 Room Air 01/20/24 09:39 01/20/24 07:25 92 Room Air
[2024-01-20] MEDS: LOPERAMIDE HCL 2 MG CAP PO PRN (21:30)
[2024-01-21 06:17] LABS: Hematocrit (blood only) 29.5 % (42.0-52.0); Hemoglobin 9.3 g/dl (14.0-18.0); Mean Corpuscular Hemoglobin 29.2 pg (25.0-34.0); Mean Corpuscular Hgb Conc 31.5 g/dL (32.0-36.0); Mean Corpuscular Volume 92.8 fL (80.0-100.0); Mean Platelet Volume 10.4 fL (9.4-12.4); Platelet Count 120 K/uL (130-400); RDW Coefficient of Variation 16.4 % (11.5-14.5); RDW Standard Deviation 55.8 fL (36.4-46.3); Red Blood Count 3.18 M/uL (4.70-6.10); White Blood Count 6.74 K/ul (4.8-10.8)
[2024-01-21 06:27] LABS: BUN Creatinine Ratio 6.4 (10-20); Calcium 8.6 mg/dl (8.6-10.3); Creatinine Clr Calc Pharmacy 8.8 ml/min; Est GFR (African American) 8.6 ml/min; Est GFR (Non-African American) 7.4 ml/min; Potassium 4.1 mmol/L (3.5-5.1)
[2024-01-21] MEDS: COLLAGENASE OINT 30 GM TUBE EXT SCH (07:43)
[2024-01-21 11:12] LABS: HBSAG NON-REACTIVE (NON-REACTIVE)
--- NOTE | 2024-01-21 11:52 | Infectious Disease Consult ---
Date of Consultation January 21, 2024 Assessment & Plan (1) Cellulitis of right foot: (2) Diabetic foot ulcer: (3) Peripheral arterial disease: (4) Venous stasis of both lower extremities: (5) Diarrhea: (6) ESRD needing dialysis: Plan 88yo M with h/o ESRD on HD MWF via RUE AVF, afib, HFpEF, T2DM c/b neuropathy and nephropathy, HTN, NSTEMI, bullous emphysema, pulmonary HTN, cirrhosis, lymphoid interstitial pneumonitis, prostate cancer and 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 He had worn new slippers which rubbed his right foot about 1-2 weeks ago. He was seen in the ED on 01/10 and was sent home on keflex but returned due to c/f infection at dialysis. Here he has been afebrile with stable vitals. Initial labs with normal WBC, LFT wnl. PCT 0.56. R foot XR negative for osseous abnormality. Arterial u/s with PAD. Seen by vascular, no intervention advised. He has also been seen by podiatry, wound debrided to subcutaneous tissue, no abscess or bone involvement was suspected. He has been getting daptomycin and zosyn. ID consulted 01/20 for assistance. Since hes only had the ulcer for about 1 week and clinically the ulcer is only up to subcutaneous tissue without probe to bone, XR without osseous involvement, and PCT not very high, will hold on additional testing as likelihood of OM at this time is low. Agree with podiatry for PO antibiotics. His superficial WCx has MRSA that is resistant to doxycycline. Options include clindamycin, Bactrim, or linezolid. All have risks for C diff, and so far he does have diarrhea but C diff testing was negative. Given some anaerobic coverage provided by clindamycin, will utilize this drug. LZD sensitivities not available and will try to avoid Bactrim given his renal function as well as h/o ?allergy (reaction listed is severe agitation/delirium). Vanc 01/16 ->Daptomycin 01/17- Zosyn 01/16-present 01/16 WCX: MRSA (I-tetracycline, S-clinda, Bactrim) 01/16 BCX: ngtd 01/18 MRSA screen: neg 01/19 C diff: neg # Cellulitis of right foot with ulcer # h/o T2DM # ESRD on HD MWF - can continue on IV abx while inpatient - on discharge, he can be started on clindamycin 450mg PO 3 times daily to complete a course of 7 days (start 01/16, end date 01/23) - I have counseled patient regarding risk of C diff and monitoring for any worsening of diarrhea ID will discontinue active follow up at this time. Please do not hesitate to reconsult the Infectious Diseases service as needed. Kellie Page MD [facility], Division of Infectious Diseases [facility]: [phone] Consultation Information Consultation was provided via telemedicine using two-way real-time interactive telecommunication between the patient and the telemedicine provider. For the duration of the visit, the provider was performing the assessment from a di fferent facility than the patient. This includesuse of bluetooth stethoscope forauscultationperformed by the telepresenter that the telemedicine provider can hear if described in the physical exam. Apprentice Stylist contact information: Please call [facility] Call Center [phone]. (Phone Number For Physician Use Only) After establishing a telemedicine visit, patient was: Patient was verified with two unique identifiers, Patient/authorized rep acknowledged consent and understanding and Gave permission to continue telehealth session Time Spent with Patient: Initial => 75 min History of Present Illness Reason for Consultation: diabetic foot ulcer MRSA Attending Physician: Alireza Vasques History of Present Illness 88yo M with h/o ESRD on HD MWF via [facility] AVF, afib, HFpEF, T2DM c/b neuropathy and nephropathy, HTN, NSTEMI, bullous emphysema, pulmonary HTN, cirrhosis, lymphoid interstitial pneumonitis, prostate cancer and 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 He had worn new slippers which rubbed his right foot about 1-2 weeks ago. He noticed a pinching sensation in his right foot 7 days prior to admission and was initially seen at dialysis where he was told there was a small area that needed to be watched. He was seen in the ED on 01/10 and was sent home on keflex. He was seen in HD on 01/16 and there were c/f infection and sent for admission. Here he has been afebrile with stable vitals. Initial labs with normal WBC, LFT wnl. PCT 0.56. R foot XR negative for osseous abnormality. Arterial u/s with PAD. Seen by vascular, no intervention advised. He has also been seen by podiatry, wound debrided to subcutaneous tissue, no abscess or bone involvement was suspected. He has been g etting daptomycin and zosyn. ID consulted 01/20 for assistance. On evaluation, patient reports that he thought he had a small paper on his foot when he initially noticed the wound. He has baseline leg/foot redness and says his feet do not look any different from baseline. He denies pain, no reported drainage from the wound. Since being admitted, he has had diarrhea with frequent loose watery stools. He started immodium and this has improved. No abdominal pain. He says hes had GI surgery in the past. No chest pain or shortness of breath. Allergies Allergy/AdvReac Type Severity Reaction Status Date / Time clarithromycin AdvReac Intermediate confusion Verified 12/24/23 11:01 fish oil AdvReac Intermediate hx of Verified 12/24/23 11:01 hemorrhage in past Sulfa (Sulfonamide AdvReac Intermediate severe Verified 12/24/23 11:01 Antibiotics) agitation/delirium Home Medications Medication Instructions Recorded Confirmed Type vit B complx, C-iron 8 mg-folic 1 tab PO QAM 03/05/19 01/17/24 History acid 800 mcg-D3 1,000 unit-zinc tablet (ProRenal) calcium acetate(phosphat bind) 667 2,001 mg PO TIDM 05/03/21 01/17/24 History mg capsule docusate sodium 50 mg capsule 50 mg PO DAILY PRN Constipation 05/03/21 01/17/24 History (Colace Clear) lorazepam 0.5 mg tablet 0.5 mg PO Q12H PRN anxiety #60 tabs 01/23/22 01/17/24 Rx blood sugar diagnostic (OneTouch 09/25/22 01/17/24 History Ultra Test strips) pravastatin 40 mg tablet 40 mg PO QPM #90 tabs 01/14/23 01/17/24 Rx flash glucose sensor (FreeStyle #6 ea 03/19/23 01/17/24 Rx Frederick 2 Sensor kit) pen needle, diabetic 32 gauge x #200 ea 06/19/23 01/17/24 Rx 5/32" (BD Ultra-Fine Tiffanie Pen Needle) metoprolol tartrate 50 mg tablet 50 mg PO BID #180 tabs 07/16/23 01/17/24 Rx nitroglycerin 0.4 mg sublingual 0.4 mg sublingual Q5M PRN 09/25/23 01/17/24 Rx tablet hypertensive emergency #25 tabs folic acid 1 mg tablet 1 mg PO QAM 12/02/23 01/17/24 History insulin aspar prt-insulin aspart See Rx Instructions .Route 12/19/23 01/17/24 Rx 100 unit/mL (70-30) subcutaneous .COMPLEX #50 mL soln (Novolog Mix 70-30 U-100 Insuln) amlodipine 5 mg tablet 5 mg PO 4XWK #90 tabs 12/23/23 01/17/24 Rx cephalexin 250 mg tablet 250 mg PO BID 10 days #20 tabs 01/11/24 01/17/24 Rx Patient History Medical History Elevated troponin Acute respiratory failure with hypoxia Weakness Hyperkalemia Pulmonary edema Acute respiratory failure Exertional dyspnea Chest pain Phimosis of penis AV fistula AV fistula Anxiety Breathlessness Right shoulder tendinitis Right shoulder pain T2DM (type 2 diabetes mellitus) Acute dyspnea Anemia COVID-19 COPD (chronic obstructive pulmonary disease) Dialysis AV fistula malfunction Emphysema lung suggested per CXR History of blood transfusion 2/2 GIB felt r/t radiation therapy s/p total of 6 units PRBC's since 10/2018 Arteriovenous fistula thrombosis Gout Osteoarthritis Hearing deficit LEFT Diabetic neuropathy Transient ischemic attack (TIA) (2014) 2014--no deficits, no neurologist Thrombocytopenia Pulmonary nodules UNDER SURVEILLANCE Prostate cancer S/P SURGERY, XRT 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 Hanna through Right AV fistula 08/17/19 S/P arteriovenous (AV) fistula creation right 05/[address] Hanna S/P dialysis catheter insertion Permcath + attempted thrombectomy: 04/2019: MAC sedation at [facility] History of esophagogastroduodenoscopy (EGD) + CAUTERIZATION (2/2 GIB) History of colonoscopy History of tooth extraction History of cataract surgery RIGHT/LEFT History of cardiac cath X3 = NO STENTS S/P arteriovenous (AV) fistula creation LEFT Right side recently ballooned and stented in [facility] Amputation of left little finger History of arthroscopy LEFT KNEE History of bowel resection BOWEL LACERATION DURING ATTEMPTING POLYPECTOMY H/O prostatectomy Family History Father Family history of diabetes mellitus Hypertension Brother Prostate cancer Mother Heart disease Hypertension Denies family history of Ovarian cancer Breast cancer Lung cancer Colorectal cancer Social History Smoking Status: Never smoker Second Hand Exposure: No; Do You Dip or Chew Tobacco: No; Hx Alcohol Use: No Hx Substance Use: No Preferred Language: Maltese Communication Ability: Effective Visual Impairment: No Limitations Hearing Ability: Normal 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 Required: No Beliefs That Will Affect Care: None marital status: / Current Living Situation: Alone Current Living Situation Comment: Lives with Grandson current occupational status: retired How many Children do You have: 1 Feels Safe at Home: Yes Childhood Exposure to Second-Hand Smoke: Yes Diet: regular Diet Comment: regular caffeine: Yes (coffee, once in a while) during the past year weight has: remained stable Dental Care, Regularly: Yes Physical Activity Frequency: Does not Exercise Seatbelt Use: always Sunscreen Use: No Assistive Devices: Walker Review of System 10-point review of systems reviewed and are negative except for as above. Physical Exam Physical Exam: General: Awake, alert, no acute distress HEENT: NC/AT, EOMI, mmm Neck: supple Lungs: respirations non-labored Heart: nl peripheral perfusion Abdomen: soft, NT/ND Ext: right foot more swollen compared to left, chronic bl LE skin changes, right foot with open wound over lateral foot, some bloody drainage noted Skin: as above Neuro: O x 3 Results & Data Vital Signs (Past 12 Hours) Vital Signs Temp Pulse Resp BP Pulse Ox O2 Del Method 01/21/24 10:06 Room Air 01/21/24 07:22 36.7 C 85 16 131/51 L 93 Room Air Laboratory Results Labs reviewed Diagnostic Findings Imaging reviewed (2) Diabetic foot ulcer Diabetes mellitus type: type 2 Diabetic foot ulcer location: midfoot Laterality: right Non-pressure ulcer stage: with fat layer exposed Qualified Code(s): E11.621 - Type 2 diabetes mellitus with foot ulcer; L97.412 - Non- pressure chronic ulcer of right heel and midfoot with fat layer exposed
[2024-01-21] MEDS: ADVANCED PROBIOTIC 625 MG CAPSULE PO SCH (11:58)
--- NOTE | 2024-01-21 12:35 | Nephrology Progress Note ---
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 Currently on daptomycin. Electrolyte, volume status, blood pressure reasonable. Hemoglobin low but relatively stable, chronic. Lower extremity arterial Doppler showed bilateral stenosis in the arteries of the leg. No flow is seen in the proximal and midportion of the right posterior tibial artery. --Ok to be discharged on po antibiotic as per ID recommendation. --Epogen 20,000 units with dialysis given yesterday. --Dose medications for EGFR less than 10 --right arm nephrology precaution for AV fistula. Admission and Anticipated Discharge Date Admission Date: January 17, 2024 Rosa Maria Felix was seen and examined during dialysis this morning. overall doing well. Electrolyte acceptable. Blood pressure fair. Review of Systems Review of Systems: Detailed review of system was done and pertinent positives and negatives are mentioned above. Physical Exam Constitutional: WD/WN, vitals as above no acute distress Respiratory: no respiratory distress Auscultation: lungs clear to auscultation bilaterally Cardiovascular: Rate/Rhythm: regular rate and regular rhythm Heart Sounds: normal S1 and normal S2 Extremities: + AV fistula (AVF with thrill and bruit.); no edema Musculoskeletal: rt foot ulcer Neurologic: no focal motor deficits Psychiatric: Orientation: alert and oriented x 3 Affect: euthymic affect Results & Data Vital Signs (Past 12 Hours) Vital Signs Temp Pulse Resp BP Pulse Ox O2 Del Method 01/21/24 10:06 Room Air 01/21/24 07:22 36.7 C 85 16 131/51 L 93 Room Air PG Care Time/CCT Total # of Minutes Spent Total Time Spent with Patient: Total time spent is greater than 50% in coordination of care (as documented) at patient's floor/unit and/or counseling patient: Coding Level of Care Code 37339 SUB INP/OBS CARE 2/35MIN Diagnoses End-stage renal disease on hemodialysis N18.6; Z99.2 Anemia D64.9 Anemia type: unspecified type Diabetic ulcer of right midfoot associated with type 2 diabetes mellitus, with fat layer exposed E11.621; L97.412 Diabetes mellitus type: type 2 Diabetic foot ulcer location: midfoot Laterality: right Non-pressure ulcer stage: with fat layer exposed Hypertension I10 (2) Anemia Anemia type: unspecified type Qualified Code(s): D64.9 - Anemia, unspecified (3) Diabetic foot ulcer Diabetes mellitus type: type 2 Diabetic foot ulcer location: midfoot Laterality: right Non-pressure ulcer stage: with fat layer exposed Qualified Code(s): E11.621 - Type 2 diabetes mellitus with foot ulcer; L97.412 - Non- pressure chronic ulcer of right heel and midfoot with fat layer exposed
--- NOTE | 2024-01-21 16:26 | Discharge Summary ---
Discharge Summary Date of Service January 21, 2024 Notes For Next Care Provider Mr. Madden was admitted for diabetic foot ulcer, treated with IV antibiotics. Seen by vascular - no acute intervention. Seen by podiatry - bedside debridement with outpatient follow up. Seen by infectious disease, discharged home with PO antibiotics. Will have home health coming to help with dressing changes wound care follow up needs follow up with his emt basic Blood cultures pending at discharge Medication Changes From Visit Stop Keflex Clindamycin PO through 01/23 imodium prn probitoic Santyl wound cream Admission HPI Per Admitting Provider The patient is a 88-year-old male with past medical history including ESRD on HD, atrial fibrillation, HFpEF, diabetes mellitus type 2, labile hypertension, NSTEMI, bullous emphysema, diabetic neuropathy, diabetic nephropathy, paroxysmal atrial tachycardia, pulmonary hypertension, liver cirrhosis, lymphoid interstit ial pneumonitis, prostate cancer, and GAVE causing chronic upper GI bleeding. He reports that about 7 days ago he noticed a pinching sensation in his right foot, was initially assessed at dialysis and was a small area to need to be watched. On 01/11/2024 he presented to the emergency department, had a workup done and then was sent home on cephalexin, which she has been taking routinely. He was assessed again at dialysis this morning, was found to have a worsening infection, and was advised to come to the ED for assessment. In the emergency department is found to have diabetic foot ulcer, and was referred for evaluation for admission Principal Dx & Hospital Course #1 = Principal Diagnosis (1) Cellulitis of right foot: Likely related to diabetic foot ulcer - Foot xray: moderate soft tissue swelling, no osseous involvement - Received Zosyn and daptomycin, first day 01/16 - Infectious disease consulted d--> discharged with PO clindamycin through 01/23 - Wound culture: MRSA isolated - blood cultures: no growth that 48 hours - wound care nurse consulted --> will follow outpatient - Podiatry consulted - beside debridement preformed - daily dressing changes with Santyl cream - follow up with wound and pt emt basic (2) Peripheral arterial disease: Abnormal arterial Doppler evaluation bilateral legs - no flow in the proximal and midportion or right posterior tibial artery Vascular surgery consulted - no acute surgical intervention - recommend continued wound care - recommend podiatry eval (3) ESRD (end stage renal disease) on dialysis: MWF dialysis outpatient Nephrology consultation appreciated -Continue hemodialysis -Received Epogen 01/19 Renally dose meds (4) T2DM (type 2 diabetes mellitus): ADA diet. HgbA1c 01/16: 7.4, however likely slightly inaccurate with dialysis Resume home insulin coverage at discharge (5) CAD (coronary artery disease): Stable. Continue metoprolol Continue pravastatin (6) Atrial fibrillation: Stable. He is not on systemic anticoagulation (7) Hypertension: Stable. Continue Amlodopine Plan Dispo: discharge to home with outpatient follow up and home health Discharge Exam General: NAD, VS as above Resp: normal respiratory effort, lungs clear to auscultation CV: RRR, no murmur, Abd: non tender, + hernia, no hepatosplenomegaly Extremities: Moves all extremities, scaling over bilateral lower extremities consistent with venous stasis, wound over right 5th metatarsal - bandage not removed today Updated Medication List Medication Instructions Recorded Confirmed Type vit B complx, C-iron 8 mg-folic 1 tab PO QAM 03/05/19 01/17/24 History acid 800 mcg-D3 1,000 unit-zinc tablet (ProRenal) calcium acetate(phosphat bind) 667 2,001 mg PO TIDM 05/03/21 01/17/24 History mg capsule docusate sodium 50 mg capsule 50 mg PO DAILY PRN Constipation 05/03/21 01/17/24 History (Colace Clear) lorazepam 0.5 mg tablet 0.5 mg PO Q12H PRN anxiety #60 tabs 01/23/22 01/17/24 Rx blood sugar diagnostic (OneTouch 09/25/22 01/17/24 History Ultra Test strips) pravastatin 40 mg tablet 40 mg PO QPM #90 tabs 01/14/23 01/17/24 Rx flash glucose sensor (FreeStyle #6 ea 03/19/23 01/17/24 Rx Frederick 2 Sensor kit) pen needle, diabetic 32 gauge x #200 ea 06/19/23 01/17/24 Rx 5/32" (BD Ultra-Fine Tiffanie Pen Needle) metoprolol tartrate 50 mg tablet 50 mg PO BID #180 tabs 07/16/23 01/17/24 Rx nitroglycerin 0.4 mg sublingual 0.4 mg sublingual Q5M PRN 12/13/23 04/05/24 Rx tablet hypertensive emergency #25 tabs folic acid 1 mg tablet 1 mg PO QAM 12/02/23 01/17/24 History insulin aspar prt-insulin aspart See Rx Instructions .Route 12/19/23 01/17/24 Rx 100 unit/mL (70-30) subcutaneous .COMPLEX #50 mL soln (Novolog Mix 70-30 U-100 Insuln) amlodipine 5 mg tablet 5 mg PO 4XWK #90 tabs 12/23/23 01/17/24 Rx L.acidop,casei,lactis,rham-B.lact,lizy 2 cap PO DAILY 1 week #14 caps 01/21/24 Rx 625 mg (10 billion cell) capsule (Advanced Probiotic) clindamycin HCl 150 mg capsule 450 mg (3 x 150 mg) PO Q8H 4 days 01/21/24 Rx #36 caps collagenase clostridium histo. 250 1 applic EXT DAILY #30 grams 01/21/24 Rx unit/gram topical ointment (Santyl) loperamide 2 mg capsule 2 mg PO Q2H PRN loose stool 5 days 01/21/24 Rx #10 caps Hospital Stay Data Consultations 01/17/24 20:12 ED Decision to Admit Stat 01/18/24 00:55 Consult Nephrology Routine 01/19/24 08:37 Consult Vascular Surgery Routine 01/20/24 15:39 Consult Podiatry Routine 01/21/24 10:24 Consult Infectious Diseases Routine Diagnostic Imagining Performed Foot X-Ray 01/17/24 17:36 XR foot RT 2V HISTORY: 88 years-old Male foot chronic right foot pain COMPARISON: 01/11/2024 TECHNIQUE: 2 views of the right foot FINDINGS: Demineralized appearance of the bones with moderate osteoarthritis. Moderate soft tissue swelling with arterial calcifications. No acute fracture, dislocation or osseous erosion. IMPRESSION: No acute osseous abnormality. ACT 112: Negative or not required by law. The above report was generated using voice recognition software. It may contain grammatical, syntax or spelling errors. Electronically signed by: Otto Vazquez M.D. 01/17/2024 5:58 PM Duplex Scan Lower Extremity Artery 01/18/24 00:36 US arterial duplex LE BI CLINICAL HISTORY: diabetic foot ulcer TECHNIQUE: Real-time grayscale and color and spectral Doppler ultrasound imaging of the bilateral lower extremity arteries was performed. Measurements calculated based on NASCET criteria. COMPARISON: None available at the time of this dictation. FINDINGS: RIGHT: Common femoral artery: Biphasic waveforms. Peak systolic velocity (PSV) 86 cm/s. Deep femoral artery: Biphasic waveforms. PSV 72 cm/s. Superficial femoral artery: Monophasic waveforms. PSV 164 cm/s. Popliteal artery: Monophasic waveforms. PSV 111 cm/s. Anterior tibial artery: Monophasic waveforms. PSV 84 cm/s. Posterior tibial artery: Monophasic waveforms. PSV 129 cm/s. No flow is seen in the proximal and mid artery. Peroneal artery: Monophasic waveforms. PSV 116 cm/s. Dorsalis pedis: Monophasic waveforms. PSV 191 cm/s. LEFT: Common femoral artery: Biphasic waveforms. Peak systolic velocity (PSV) 70 cm/s. Deep femoral artery: Biphasic waveforms. PSV 47 cm/s. Superficial femoral artery: Monophasic waveforms. PSV 144 cm/s. Popliteal artery: Monophasic waveforms. PSV 110 cm/s. Anterior tibial artery: Monophasic waveforms. PSV 177 cm/s. Posterior tibial artery: Monophasic waveforms. PSV 115 cm/s. Peroneal artery: Monophasic waveforms. PSV 68 cm/s. Dorsalis pedis: Monophasic waveforms. PSV 111 cm/s. ANKLE/BRACHIAL INDEX (LORI): Brachial: Right not measured Left: 112 mmHg. Ankle (dorsalis pedis): Right: 121 mmHg. Left: 147 mmHg. Ankle (posterior tibial): Right: 127 mmHg. Left: 108 mmHg. Ankle/brachial index: Right: 1.13, Left: 1.31. Reference ranges: Normal Ankle/Brachial Index (LORI) 1.0-1.4; 0.91-0.99 borderline; < or = 0.9 abno rmal (0.7-0.89 mild, 0.51-0.69 moderate, < or = 0.5 severe peripheral arterial disease). Normal Toe/Brachial Index (TBI) > or = 0.6; < 0.6 abnormal (0.34-0.59 mild, 0.12-0.34 moderate, < or = 0.11 severe peripheral arterial disease). IMPRESSION: 1. Bilateral stenosis with monophasic waveforms in the arteries of the leg and somewhat parvus tardus waveforms. No flow is seen in the proximal and midportion of the right posterior tibial artery. 2. Normal ankle-brachial indices. ACT 112: Negative or not required by law. Electronically signed by: Stan Stern M.D. 01/18/2024 7:01 PM Pending Results Patient Have Any Pending Studies at Discharge: Yes (blood cultures ) Discharge Instructions Given to Patient (Per Discharging Provider) Mr. Madden You were hospitalized after having a worsening diabetic foot ulcer. We did a culture that determined we need to change your antibiotics. You recieved IV antibiotics while you were here, but will be discharged with oral antibiotics though 01/23. You were seen by the vascular surgeon who did not recommend surgical intervention to help with your blood flow in your legs. You were seen by podiatry that debrided the wound and gave recommendations. Luckily, the infection is not down to the bone at this time, continue with the antibiotics and follow up with wound care. Nephrology was managing your dialysis and you will continue dialysis on your normal schedule. It is VERY important to maintain good control of your diabetes to help with wound healing. Changes: - Clindamycin 450mg PO three times a day through 01/23. Take this with food - Probiotic to help with gut protection while taking antibiotic - Imodium as needed for diarrhea, take one after loose stool. no more than 4 in a day - Follow up with wound care (this has been scheduled, see above) Home health nursing will also be coming to the home to assist with dressing changes. - schedule a follow up with your emt basic - Follow up with your primary care within 7 days- this has been scheduled, see above There is also a prescription for Santyl at the pharmacy - this is the cream that will need to be applied to your wound. Activity: You can do normal everyday activities as your body allows. Take rest breaks if you feel tired. Do not overexert. Stop activity if you have pain, shortness of breath or feel dizzy. Follow-up appointments: Make an appointment with your primary care physician within one week of discharge. A copy of this summary will be sent to them. Every time you see your primary care physician, or any other doctor, bring your medication list, and a list of questions. CONTACT YOUR PRIMARY CARE PROVIDER if you experience any of the following: Shortness of breath or difficulty breathing Fevers or chills Feeling tired with normal activity or experiencing dizziness or fainting Difficulty following your treatment plan, or difficulty taking medications CALL 911 OR GO TO THE EMERGENCY DEPARTMENT if you experience any of the following: Severe abdominal pain or nausea/vomiting Severe chest pain, or chest pain that radiates (moves) to your jaw or arm Sudden, severe shortness of breath or difficulty breathing Thank you for allowing us to participate in your care. Total Time Total Time Spent Total Time Spent (In Minutes): Time spend day of discharge 40 minutes including direct patient care, medication reconciliation, documentation, review of labs and images, and coordination of care. Coding Level of Care Code 98223 INP/OBS DISCH >30 MIN Diagnoses Cellulitis of right foot L03.115 Peripheral arterial disease I73.9 ESRD (end stage renal disease) on dialysis N18.6; Z99.2 T2DM (type 2 diabetes mellitus) E11.9 Diabetes mellitus care home insulin use: with superintendent container terminal use CAD (coronary artery disease) I25.10 Atrial fibrillation I48.91 Hypertension I10
== END 2024-01-21 17:56 | disposition home or self-care (01) | DRG 638 ==
LOC: ED 16:28 → EDINP 20:40 → SUATTDRO 20:40 → 2N 23:46 → 3E 01-19 14:44

== ENCOUNTER 2024-03-02 14:39 | Inpatient (IN) ==
--- NOTE | 2024-03-02 16:26 | Emergency Department Note ---
Impression & Plan Osteomyelitis of foot, acute, Diabetic foot ulcer, Fluid overload ED Provider Note NAME: MARY ANN DENNIS AGE: 88 SEX: M : 1935 ARRIVES VIA: Ambulance INFORMANT: Patient, ED PROVIDER(S): Da Alejandro MD CHIEF COMPLAINT: Diabetic foot wound HPI: This is an 88-year-old male with history of ESRD on hemodialysis, osteomyelitis of the right foot, diabetic foot ulcer, HFpEF presenting for foot wound/osteomyelitis. Patient please have an MRI done on 02/26/2024, 5 days ago, which revealed osteomyelitis. He was seen by wound care that afternoon and will be set up with podiatry follow-up. Patient was sent in by his hemodialysis team due to the weeping nature of his left foot and the wound on his right foot. ROS: See above HPI for pertinent positives & negatives. A total of 10 systems reviewed and were otherwise negative. PHYSICAL EXAMINATION: General: resting comfortably in no acute distress Head: Normocephalic and atraumatic Eyes: Normal inspection, extraocular muscles intact Ear, nose, throat: Normal external exam Neck: Normal range of motion Respiratory: lungs clear to auscultation bilaterally Cardiovascular: Regular rate/rhythm, no murmur GI: soft, nontender, no guarding or rebound Extremities: Venous stasis skin changes, weeping bilateral lower extremities, large diabetic foot ulcer to the base of the right first toe.\\ MEDICAL DECISION MAKING: This is an 88-year-old male presenting for foot wound/osteomyelitis. On record review appears the patient had an MRI done last week that does reveal osteomyelitis of the first toe. In addition he does have a fairly significant diabetic foot ulcer on the first right toe my physical exam. Patient is currently on antibiotics as per her self-report. Due to this, will require inpatient admission due to IV antibiotics needs as well as podiatry consult for this osteomyelitis of the left diabetic foot wound. His blood work is reviewed at this time -Blood work is reviewed showing leukocytosis. Hemoglobin is 9.6. Otherwise electrolytes within normal limits. Creatinine is elevated however considering ESRD at this time. -After discussion with pharmacy, will start empiric antibiotics for osteomyelitis Differential diagnosis: Osteomyelitis, diarrhea foot wound, fluid overload, CHF, venous skin changes ER treatment provided: See below Diagnostics interpreted by me: ECG: None Cardiac Monitoring: An order was placed for continuous cardiac monitoring. The monitor shows a rate of 89 with sinus rhythm. Laboratory studies: As stated above and show below. Imaging studies: See below. Past Med/Surg History Problem List (Updated 03/04/24 @ 10:52 by Da Alejandro MD) Fluid overload (Acute) Diabetic foot ulcer (Acute) Osteomyelitis of foot, acute (Acute) Heme positive stool Cellulitis of right foot Acute osteomyelitis of right foot (Acute) Pressure ulcer of right buttock, stage 2 (Acute) Diabetic ulcer of right foot (Acute) Peripheral arterial disease (Chronic) ESRD on dialysis (Acute) Anemia (Acute) Diabetic foot ulcer (Acute) Acute heart failure with preserved ejection fraction (HFpEF) Hypoxia Heart failure (Acute) Pneumonia (Acute) Fracture of metacarpal, multiple sites, closed Labile hypertension NSTEMI (non-ST elevated myocardial infarction) Acute diastolic (congestive) heart failure Phimosis of penis Bullous emphysema (Chronic) Chronic osteoarthritis (Chronic) Diabetic nephropathy associated with type 2 diabetes mellitus (Chronic) Essential hypertriglyceridemia (Chronic) Hearing loss (Chronic) Irradiation cystitis (Chronic) Obesity (Chronic) Proteinuria (Chronic) Radiation proctitis (Chronic) Vitamin D deficiency (Chronic) Abnormal finding on thyroid function test (Chronic) Pressure ulcer, buttock (Chronic) Central venous catheter in place (Chronic) Paroxysmal atrial tachycardia (Chronic) Pulmonary hypertension (Chronic) Arthritis of finger of left hand 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 Cirrhosis of liver Venous stasis ulcer (Acute) Lower extremity edema (Acute) Chronic venous insufficiency (Chronic) LIP (lymphoid interstitial pneumonitis) Abnormal PFTs (pulmonary function tests) Sjogrens syndrome First degree AV block Trigger finger of right hand Thrombocytopenia (Chronic) Pulmonary nodules (Chronic) UNDER SURVEILLANCE Prostate cancer (Chronic) S/P SURGERY, XRT 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) Dyslipidemia (Chronic) Chronic upper GI bleeding (Chronic) 2/2 XRT S/P EGD WITH CAUTERIZATION Medical History Diabetic foot ulcer Venous stasis of both lower extremities Atrial fibrillation ESRD needing dialysis CAD (coronary artery disease) Hypertension Diabetic peripheral neuropathy associated with type 2 diabetes mellitus Elevated troponin Acute respiratory failure with hypoxia Weakness Hyperkalemia Pulmonary edema Acute respiratory failure Exertional dyspnea Chest pain AV fistula AV fistula Anxiety Breathlessness Right shoulder tendinitis Right shoulder pain T2DM (type 2 diabetes mellitus) Acute dyspnea Anemia COVID-19 COPD (chronic obstructive pulmonary disease) Dialysis AV fistula malfunction Emphysema lung suggested per CXR History of blood transfusion 2/2 GIB felt r/t radiation therapy s/p total of 6 units PRBC's since 10/2018 Arteriovenous fistula thrombosis Gout Osteoarthritis Hearing deficit LEFT Diabetic neuropathy Transient ischemic attack (TIA) (2014) 2014--no deficits, no neurologist 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 Hanna through Right AV fistula 08/17/19 S/P arteriovenous (AV) fistula creation right 05/[address] Hanna S/P dialysis catheter insertion Permcath + attempted thrombectomy: 04/2019: MAC sedation at [facility] History of esophagogastroduodenoscopy (EGD) + CAUTERIZATION (2/2 GIB) History of colonoscopy History of tooth extraction History of cataract surgery RIGHT/LEFT History of cardiac cath X3 = NO STENTS S/P arteriovenous (AV) fistula creation LEFT Right side recently ballooned and stented in [facility] Amputation of left little finger History of arthroscopy LEFT KNEE History of bowel resection BOWEL LACERATION DURING ATTEMPTING POLYPECTOMY H/O prostatectomy Family History Father Family history of diabetes mellitus Hypertension Brother Prostate cancer Mother Heart disease Hypertension Denies family history of Ovarian cancer Breast cancer Lung cancer Colorectal cancer Social History Smoking Status: Never smoker Second Hand Exposure: No; Do You Dip or Chew Tobacco: No; Hx Alcohol Use: No Hx Substance Use: No Preferred Language: Malian Communication Ability: Effective Visual Impairment: No Limitations Hearing Ability: Normal Labels Molder Required: No Beliefs That Will Affect Care: None marital status: / Current Living Situation: Alone Current Living Situation Comment: Lives with Grandson current occupational status: retired How many Children do You have: 1 Other Information That Helps Us Care for You: No Feels Safe at Home: Yes Safety Concerns: Feels Safe At This Time Childhood Exposure to Second-Hand Smoke: Yes Diet: regular Diet Comment: regular caffeine: Yes (coffee, once in a while) during the past year weight has: remained stable Dental Care, Regularly: Yes Physical Activity Frequency: Does not Exercise Seatbelt Use: always Sunscreen Use: No Gender Identity: Male Assistive Devices: Walker Allergies Allergies Allergy/AdvReac Type Severity Reaction Status Date / Time clarithromycin AdvReac Intermediate confusion Verified 02/27/24 09:04 fish oil AdvReac Intermediate hx of Verified 02/27/24 09:04 hemorrhage in past Sulfa (Sulfonamide AdvReac Intermediate severe Verified 02/27/24 09:04 Antibiotics) agitation/delirium Home Meds Home Medications Medication Instructions Recorded Confirmed vit B complx, C-iron 8 mg-folic 1 tab PO QAM 03/05/19 03/02/24 acid 800 mcg-D3 1,000 unit-zinc tablet (ProRenal) calcium acetate(phosphat bind) 667 2,001 mg PO TIDM 05/03/21 03/02/24 mg capsule docusate sodium 50 mg capsule 50 mg PO DAILY PRN Constipation 05/03/21 03/02/24 (Colace Clear) folic acid 1 mg tablet 1 mg PO QAM 12/02/23 03/02/24 Previous Rx's Medication Instructions Recorded lorazepam 0.5 mg tablet 0.5 mg PO Q12H PRN anxiety #60 tabs 01/23/22 pravastatin 40 mg tablet 40 mg PO QPM #90 tabs 01/14/23 pen needle, diabetic 32 gauge x #200 ea 06/19/23" (BD Ultra-Fine Tiffanie Pen Needle) metoprolol tartrate 50 mg tablet 50 mg PO BID #180 tabs 07/16/23 nitroglycerin 0.4 mg sublingual 0.4 mg sublingual Q5M PRN 09/25/23 tablet hypertensive emergency #25 tabs insulin aspar prt-insulin aspart See Rx Instructions .Route 12/19/23 100 unit/mL (70-30) subcutaneous .COMPLEX #50 mL soln (Novolog Mix 70-30 U-100 Insuln) amlodipine 5 mg tablet 5 mg PO 4XWK #90 tabs 12/23/23 collagenase clostridium histo. 250 1 applic EXT DAILY #30 grams 01/21/24 unit/gram topical ointment (Santyl) Results & Data (ED) Vital Signs Vital Signs - 24 hr 03/02/24 14:56 05/20/24 15:32 Temperature 36.6 C Temperature Source Oral Pulse Rate 80 86 Respiratory Rate 18 Respiratory Effort / Characteristics Non-Labored Spontaneous Respiratory Depth Normal Respiratory Pattern Regular Blood Pressure 125/65 Blood Pressure Mean 85 Blood Pressure Position Lying Pulse Oximetry 95 Oxygen Delivery Method Room Air Sepsis Recent Fever Within 48 Hours No Sepsis New/Unexplained Change in Mental Status No Sepsis Action Taken by Nursing No Action Required Laboratory Data 03/04/24 03:25 03/04/24 03:25 Lab Results 03/02/24 Range/Units 14:50 WBC 8.31 (4.8-10.8) K/ul RBC 3.54 L (4.70-6.10) M/uL Hgb 9.6 L (14.0-18.0) g/dl Hct 30.9 L (42.0-52.0) % MCV 87.3 (80.0-100.0) fL MCH 27.1 (25.0-34.0) pg MCHC 31.1 L (32.0-36.0) g/dL RDW Std Deviation 51.4 H (36.4-46.3) fL RDW Coeff of Casandra 16.2 H (11.5-14.5) % Plt Count 175 (130-400) K/uL MPV 10.5 (9.4-12.4) fL Immature Gran % (Auto) 1.1 % Neut % (Auto) 75.8 % Lymph % (Auto) 13.6 % Creek % (Auto) 8.7 % Eos % (Auto) 0.6 % Baso % (Auto) 0.2 % Neut # (Auto) 6.30 (1.40-6.50) K/uL Lymph # (Auto) 1.13 L (1.20-3.40) K/uL Creek # (Auto) 0.72 H (0.11-0.59) K/uL Eos # (Auto) 0.05 (0.00-0.50) K/uL Baso # (Auto) 0.02 (0.00-0.20) K/uL Immature Gran # (Auto) 0.09 (0.01-0.20) K/uL ESR 94 H (0-20) mm/hr Sodium 135 L (136-145) mmol/L Potassium 3.6 (3.5-5.1) mmol/L Chloride 91 L (98-107) mmol/L Carbon Dioxide 36 H (21-32) mmol/L Anion Gap 8 (3-11) BUN 22 (6-23) mg/dl Creatinine 3.39 H (0.6-1.4) mg/dl Est Cr Clr Drug Dosing 16.7 ml/min Est GFR ( Amer) 17.6 ml/min Est GFR (Non-Af Amer) 15.2 ml/min BUN/Creatinine Ratio 6.5 L (10-20) Glucose 210 H (70-99(Fasting)) mg/dl Calcium 8.7 (8.6-10.3) mg/dl C-Reactive Protein 11.73 H (0-0.5) mg/dl Administered Medications Acetaminophen (Acetaminophen 325 Mg Tab) 650 mg PO Q4H PRN PRN Reason: pain/fever Stop: 04/01/24 22:52 Last Admin: 03/03/24 22:10 Dose: 650 mg Documented By: GUSTAVO Amlodipine Besylate (Amlodipine Besylate 5 Mg Tab) 5 mg PO [id number] [facility] Stop: 04/02/24 08:59 Last Admin: 03/03/24 09:09 Dose: 5 mg Documented By: WAQAS Calcium Acetate (Calcium Acetate 667 Mg Cap/Tab) 2,001 mg PO TIDM [facility] Stop: 04/02/24 07:59 Last Admin: 03/04/24 08:11 Dose: 2,001 mg Documented By: Admin: 03/03/24 16:55 Dose: 2,001 mg Documented By: Admin: 03/03/24 12:20 Dose: 2,001 mg Documented By: Admin: 03/03/24 09:09 Dose: 2,001 mg Documented By: WAQAS Collagenase (Collagenase Oint 30 Gm Tube) 1 appln EXT DAILY [facility] Stop: 04/02/24 08:59 Last Admin: 03/04/24 08:13 Dose: 1 appln Documented By: Admin: 03/03/24 09:08 Dose: 1 appln Documented By: WAQAS Folic Acid (Folic Acid 1 Mg Tab) 1 mg PO QAM [facility] Stop: 04/02/24 08:59 Last Admin: 03/04/24 08:13 Dose: 1 mg Documented By: Admin: 03/03/24 09:09 Dose: 1 mg Documented By: WAQAS Piperacillin Sod/Tazobactam (Sod 4.5 gm/ Dextrose) 100 mls @ 25 mls/hr IV Q12H [facility]; Protocol Stop: 03/10/24 13:59 Last Infusion: 03/04/24 05:57 Dose: Infused Documented By: Admin: 03/04/24 01:35 Dose: 25 mls/hr Documented By: Infusion: 03/03/24 17:52 Dose: Infused Documented By: Admin: 03/03/24 13:51 Dose: 25 mls/hr Documented By: WAQAS Insulin Aspart (Insulin Aspart Per Unit Charge) 0 units SC ACHS [facility] Stop: 04/01/24 22:52 Last Admin: 03/04/24 09:13 Dose: 6 units Documented By: LUZ Co-signed By: TYLER Admin: 03/03/24 22:07 Dose: 3 units Documented By: GUSTAVO Co-signed By: DAJUAN Admin: 03/03/24 17:03 Dose: 8 units Documented By: WAQAS Co-signed By: OC Admin: 03/03/24 12:17 Dose: 10 units Documented By: WAQAS Co-signed By: TYLER Admin: 03/03/24 08:09 Dose: 6 units Documented By: WAQAS Co-signed By: HELENA Admin: 03/03/24 00:28 Dose: 5 units Documented By: SERENA Co-signed By: NIRAV Insulin Glargine (Lantus Per Unit Charge) 20 units SQ HS KASSANDRA Stop: 04/02/24 20:59 Last Admin: 03/03/24 22:08 Dose: 20 units Documented By: GUSTAVO Co-signed By: DAJUAN Metoprolol Tartrate (Metoprolol Tartrate 50 Mg Tab) 50 mg PO BID [facility] Stop: 04/01/24 22:52 Last Admin: 03/04/24 08:13 Dose: 50 mg Documented By: Admin: 03/03/24 22:09 Dose: 50 mg Documented By: Admin: 03/03/24 09:08 Dose: 50 mg Documented By: Admin: 03/03/24 00:18 Dose: 50 mg Documented By: SERENA Ondansetron HCl (Ondansetron Inj 2 Mg/Ml 2 Ml Vial) 4 mg IV Q4H PRN PRN Reason: Nausea Stop: 04/03/24 02:41 Last Admin: 03/04/24 03:03 Dose: 4 mg Documented By: GUSTAVO Vitamin B Complex/Folic Acid (Nephrocaps) 1 cap PO QAM KASSANDRA Stop: 04/02/24 08:59 Last Admin: 03/04/24 08:13 Dose: 1 cap Documented By: Admin: 03/03/24 09:09 Dose: 1 cap Documented By: WAQAS Discontinued Medications Diphenhydramine HCl (Diphenhydramine 50 Mg/Ml Vial) 25 mg IV NOW STA Stop: 03/03/24 23:54 Last Admin: 03/04/24 00:13 Dose: 25 mg Documented By: GUSTAVO Piperacillin Sod/Tazobactam Sod (Zosyn) 4.5 gm in 100 mls @ 200 mls/hr IV NOW ONE Stop: 03/02/24 16:58 Last Infusion: 03/02/24 17:09 Dose: Infused Documented By: Admin: 03/02/24 16:38 Dose: 200 mls/hr Documented By: TADEO Daptomycin 475 mg/ Syringe 9.5 mls @ 4.75 mls/min IV Q24H [facility]; Protocol Stop: 03/04/24 16:29 Last Admin: 03/02/24 16:56 Dose: 4.75 mls/min Documented By: TADEO Piperacillin Sod/Tazobactam (Sod 4.5 gm/ Dextrose) 100 mls @ 25 mls/hr IV Q8H [facility]; Protocol Stop: 03/10/24 00:59 Last Infusion: 03/03/24 05:30 Dose: Infused Documented By: Admin: 03/03/24 01:14 Dose: 25 mls/hr Documented By: SERENA Insulin Aspart (Insulin Aspart Per Unit Charge) 0 units SC 0400 ONE Stop: 03/03/24 04:01 Last Admin: 03/03/24 05:43 Dose: Not Given Documented By: SERENA Co-signed By: Insulin Glargine (Lantus Per Unit Charge) 20 units SQ BID [facility] Stop: 04/01/24 22:52 Last Admin: 03/03/24 00:30 Dose: 20 units Documented By: SERENA Co-signed By: NIRAV Discharge Plan Visit Data Chief Complaint: Illness ED Provider: Da Alejandro Discharge Problem: Osteomyelitis of foot, acute, Diabetic foot ulcer, Fluid overload Patient Disposition: Admitted As Inpatient Discharge Instructions Interventions: ED Discharge Assessment Last Done: 03/02/24 22:09
[2024-03-02 16:34] LABS: Basophils # (auto) 0.02 K/uL (0.00-0.20); Basophils % (auto) 0.2 %; Eosinophils # (auto) 0.05 K/uL (0.00-0.50); Eosinophils % (auto) 0.6 %; Hematocrit (blood only) 30.9 % (42.0-52.0); Hemoglobin 9.6 g/dl (14.0-18.0); Immature Granulocytes # (auto) 0.09 K/uL (0.01-0.20); Immature Granulocytes % (auto) 1.1 %; Lymphocytes # (auto) 1.13 K/uL (1.20-3.40); Lymphocytes % (auto) 13.6 %; Mean Corpuscular Hemoglobin 27.1 pg (25.0-34.0); Mean Corpuscular Hgb Conc 31.1 g/dL (32.0-36.0); Mean Corpuscular Volume 87.3 fL (80.0-100.0); Mean Platelet Volume 10.5 fL (9.4-12.4); Monocytes # (auto) 0.72 K/uL (0.11-0.59); Monocytes % (auto) 8.7 %; Neutrophils % (auto) 75.8 %; Platelet Count 175 K/uL (130-400); RDW Coefficient of Variation 16.2 % (11.5-14.5); RDW Standard Deviation 51.4 fL (36.4-46.3); Red Blood Count 3.54 M/uL (4.70-6.10); White Blood Count 8.31 K/ul (4.8-10.8)
[2024-03-02] MEDS: PIPERACILLIN/TAZOBACTAM 4.5 GM/100 ML BAG IV ONE (16:38)
[2024-03-02 16:39] LABS: BUN Creatinine Ratio 6.5 (10-20); Calcium 8.7 mg/dl (8.6-10.3); Creatinine Clr Calc Pharmacy 16.7 ml/min; Est GFR (African American) 17.6 ml/min; Est GFR (Non-African American) 15.2 ml/min; Potassium 3.6 mmol/L (3.5-5.1)
[2024-03-02] MEDS: DAPTOmycin 475 MG in SYRINGE 0 ML IV SCH (16:56)
[2024-03-02 17:08] LABS: C Reactive Protein 11.73 mg/dl (0-0.5)
--- NOTE | 2024-03-02 17:21 | XRay Report ---
XR chest 1V portable HISTORY: generalized confusion ?PNA COMPARISON: Chest 12/05/2023. FINDINGS: No pneumothorax. The cardiac silhouette remains mildly enlarged. Left basilar linear densit ies favor subsegmental atelectasis or scarring. This has improved. No new focal lung consolidations t o suggest a pneumonia. There is mild pulmonary vascular congestion without overt edema. There is a tr daja right pleural effusion which has improved. IMPRESSION: Cardiomegaly with mild pulmonary vascular congestion and a trace right pleural effusion. This has imp roved in the interval. ACT 112: Negative or not required by law. Electronically signed by: Ralf Nicole M.D. 03/02/2024 5:20 PM
--- NOTE | 2024-03-02 17:24 | History & Physical Report ---
Date of Service March 02, 2024 Assessment & Plan (1) Acute osteomyelitis of right foot: Plan: Patient presented for worsening right foot cellulitis/ulcer on 03/02 Right foot MRI on 02/25/2024 revealed diffuse cellulitis and osteomyelitis Patient reports he had finished his course of abx at this time (?was not placed on additional abx) No leukocytosis; afebrile CRP elevated at 11.73 Venous Doppler of RLE revealed no DVT Arterial Doppler of RLE on 01/18/2024 revealed stenosis of arteries, and no flow was seen in the proximal/midportion of the right posterior tibial artery Patient was seen by vascular on 01/19 who recommended conservative measures Daptomycin 425 mg IV q24h; hold statin Zosyn 4.5 g IV q8h Podiatry consulted Wound care nurse consulted Daily wound care A.m. CBC, BMP, CRP (2) ESRD on dialysis: Plan: Patient is on hemodialysis on //; last dialysis completed on 03/02 No BP, IV, or labs in the right upper extremity Nephrology consulted for inpatient dialysis if needed (3) Diabetic nephropathy associated with type 2 diabetes mellitus: Plan: Last A1c at 7.4% on 01/17/2024 Glucose 210 on admission Lantus BID + SSI T2DM diet BSG ACHS Adjust regimen as needed Pharmacy glycemic management consult in the setting of ESRD (4) Chronic upper GI bleeding: Plan: Noted; Hgb 9.6 on arrival Patient does endorse occasional blood in his stool No signs of active bleeding on clinical exam Follow a.m. CBCs (5) Cellulitis of right foot: (6) Diabetic ulcer of right foot: (7) Heart failure: (8) GAVE (gastric antral vascular ectasia): Plan Disposition: Admit to [facility] DNR/DNI T2DM diet VTE PPx: Hold chemical DVT PPx given chronic GI bleed; hold mechanical DVT PPx in the setting of weeping legs / diabetic foot infection History of Present Illness Chief Complaint: Right diabetic foot infection, illness, confusion Primary Care Provider: Sophie Patricia PA-C Isidro is an 88-year-old male with PMH of T2DM, GAVE, chronic upper GI bleeding, dyslipidemia, prostate cancer, Sjogren's, first-degree AV block, LIP, NSTEMI, HFpEF, and ESRD on dialysis (/W/F). He presented for weakness, tachycardia, and confusion on 03/02 while at the kidney care center. Patient received a full course of dialysis on 03/02. Patient does have a diabetic foot ulcer on the sole of his right foot x 5 weeks (required [place] admission on 01/16), but he reports he is not currently on antibiotics as he finishes courses of outpatient antibiotics; per review of notes this might have been Augmentin and clindamycin x 7 days starting on 01/30. Patient does endorse right foot pain intermittently, and he was having some this morning. He rates the pain 5/10 at worst and describes it as a dull, achy pain with radiation up the zhao. He has not taken any pain medication for his foot. He reports that the nursing staff at the renal center noted weeping from his left leg that started just today. Patient took all of his regular morning medications today; no recent change in medications. He manages his own medications at home. He denies smoking, tobacco use, or recent alcohol use. Patient is hypertensive at 141/62 at time of admission; vitals otherwise stable. 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 Patient denies fever, night-sweats, body aches, dizziness, lightheadedness, MULLEN, chest pain, chest palpitations, SOB, cough, abdominal pain, N/V/D, or saddle anesthesia. Allergies Allergy/AdvReac Type Severity Reaction Status Date / Time clarithromycin AdvReac Intermediate confusion Verified 02/27/24 09:04 fish oil AdvReac Intermediate hx of Verified 02/27/24 09:04 hemorrhage in past Sulfa (Sulfonamide AdvReac Intermediate severe Verified 02/27/24 09:04 Antibiotics) agitation/delirium Home Medications Medication Instructions Recorded Confirmed Type vit B complx, C-iron 8 mg-folic 1 tab PO QAM 03/05/19 03/02/24 History acid 800 mcg-D3 1,000 unit-zinc tablet (ProRenal) calcium acetate(phosphat bind) 667 2,001 mg PO TIDM 05/03/21 03/02/24 History mg capsule docusate sodium 50 mg capsule 50 mg PO DAILY PRN Constipation 05/03/21 03/02/24 History (Colace Clear) lorazepam 0.5 mg tablet 0.5 mg PO Q12H PRN anxiety #60 tabs 01/23/22 03/02/24 Rx pravastatin 40 mg tablet 40 mg PO QPM #90 tabs 01/14/23 03/02/24 Rx pen needle, diabetic 32 gauge x #200 ea 06/19/23 03/02/24 Rx /32" (BD Ultra-Fine Tiffanie Pen Needle) metoprolol tartrate 50 mg tablet 50 mg PO BID #180 tabs 07/16/23 03/02/24 Rx nitroglycerin 0.4 mg sublingual 0.4 mg sublingual Q5M PRN 09/25/23 03/02/24 Rx tablet hypertensive emergency #25 tabs folic acid 1 mg tablet 1 mg PO QAM 12/02/23 03/02/24 History insulin aspar prt-insulin aspart See Rx Instructions .Route 12/19/23 03/02/24 Rx 100 unit/mL (70-30) subcutaneous .COMPLEX #50 mL soln (Novolog Mix 70-30 U-100 Insuln) amlodipine 5 mg tablet 5 mg PO 4XWK #90 tabs 12/23/23 03/02/24 Rx collagenase clostridium histo. 250 1 applic EXT DAILY #30 grams 01/21/24 03/02/24 Rx unit/gram topical ointment (Santyl) Past Med/Surg History Problem List (Updated 03/02/24 @ 17:20 by Ralf Yougn PA-C) Cellulitis of right foot Acute osteomyelitis of right foot (Acute) Pressure ulcer of right buttock, stage 2 (Acute) Diabetic ulcer of right foot (Acute) Peripheral arterial disease (Chronic) ESRD on dialysis (Acute) Anemia (Acute) Diabetic foot ulcer (Acute) Acute heart failure with preserved ejection fraction (HFpEF) Hypoxia Heart failure (Acute) Pneumonia (Acute) Fracture of metacarpal, multiple sites, closed Labile hypertension NSTEMI (non-ST elevated myocardial infarction) Acute diastolic (congestive) heart failure Phimosis of penis Bullous emphysema (Chronic) Chronic osteoarthritis (Chronic) Diabetic nephropathy associated with type 2 diabetes mellitus (Chronic) Essential hypertriglyceridemia (Chronic) Hearing loss (Chronic) Irradiation cystitis (Chronic) Obesity (Chronic) Proteinuria (Chronic) Radiation proctitis (Chronic) Vitamin D deficiency (Chronic) Abnormal finding on thyroid function test (Chronic) Pressure ulcer, buttock (Chronic) Central venous catheter in place (Chronic) Paroxysmal atrial tachycardia (Chronic) Pulmonary hypertension (Chronic) Arthritis of finger of left hand 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 Cirrhosis of liver Venous stasis ulcer (Acute) Lower extremity edema (Acute) Chronic venous insufficiency (Chronic) LIP (lymphoid interstitial pneumonitis) Abnormal PFTs (pulmonary function tests) Sjogrens syndrome First degree AV block Trigger finger of right hand Thrombocytopenia (Chronic) Pulmonary nodules (Chronic) UNDER SURVEILLANCE Prostate cancer (Chronic) S/P SURGERY, XRT 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) Dyslipidemia (Chronic) Chronic upper GI bleeding (Chronic) 2/2 XRT S/P EGD WITH CAUTERIZATION Medical History (Updated 03/02/24 @ 17:20 by Ralf Young PA-C) Diabetic foot ulcer Venous stasis of both lower extremities Atrial fibrillation ESRD needing dialysis CAD (coronary artery disease) Hypertension Diabetic peripheral neuropathy associated with type 2 diabetes mellitus Elevated troponin Acute respiratory failure with hypoxia Weakness Hyperkalemia Pulmonary edema Acute respiratory failure Exertional dyspnea Chest pain AV fistula AV fistula Anxiety Breathlessness Right shoulder tendinitis Right shoulder pain T2DM (type 2 diabetes mellitus) Acute dyspnea Anemia COVID-19 COPD (chronic obstructive pulmonary disease) Dialysis AV fistula malfunction Emphysema lung suggested per CXR History of blood transfusion 2/2 GIB felt r/t radiation therapy s/p total of 6 units PRBC's since 10/2018 Arteriovenous fistula thrombosis Gout Osteoarthritis Hearing deficit LEFT Diabetic neuropathy Transient ischemic attack (TIA) (2014) 2014--no deficits, no neurologist 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 Hanna through Right AV fistula 08/17/19 S/P arteriovenous (AV) fistula creation right 05/[address] Hanna S/P dialysis catheter insertion Permcath + attempted thrombectomy: 04/2019: MAC sedation at [facility] History of esophagogastroduodenoscopy (EGD) + CAUTERIZATION (2/2 GIB) History of colonoscopy History of tooth extraction History of cataract surgery RIGHT/LEFT History of cardiac cath X3 = NO STENTS S/P arteriovenous (AV) fistula creation LEFT Right side recently ballooned and stented in [employer] [facility] Amputation of left little finger History of arthroscopy LEFT KNEE History of bowel resection BOWEL LACERATION DURING ATTEMPTING POLYPECTOMY H/O prostatectomy Family History Father Family history of diabetes mellitus Hypertension Brother Prostate cancer Mother Heart disease Hypertension Denies family history of Ovarian cancer Breast cancer Lung cancer Colorectal cancer Social History (Updated 01/28/24 @ 13:19 by Bella Cotter RN) Smoking Status: Never smoker Second Hand Exposure: No; Do You Dip or Chew Tobacco: No; Hx Alcohol Use: No Hx Substance Use: No Preferred Language: Frisian Communication Ability: Effective Visual Impairment: No Limitations Hearing Ability: Normal Hospital Receptionist Required: No Beliefs That Will Affect Care: None marital status: / Current Living Situation: Alone Current Living Situation Comment: Lives with Grandson current occupational status: retired How many Children do You have: 1 Other Information That Helps Us Care for You: No Feels Safe at Home: Yes Safety Concerns: Feels Safe At This Time Childhood Exposure to Second-Hand Smoke: Yes Diet: regular Diet Comment: regular caffeine: Yes (coffee, once in a while) during the past year weight has: remained stable Dental Care, Regularly: Yes Physical Activity Frequency: Does not Exercise Seatbelt Use: always Sunscreen Use: No Gender Identity: Male Assistive Devices: Denture - Upper, Glasses and Walker Review of Systems 2 Review of Systems: See HPI above Physical Exam 2 Physical Exam: General: no acute distress; pleasant affect; non-toxic appearing; well- nourished; cooperative; 95% SpO2 on RA HEENT: normocephalic, atraumatic; no scleral icterus; PERRLA w/ EOMs intact; moist mucus membrane; vision and hearing grossly intact Neck: supple; no lymphadenopathy; trachea midline Skin: warm, dry without signs of tenting; no cyanosis; no rashes, bruising, lesions, or erythema noted CV: chest wall NTP; RRR; S1/S2 normal; no murmurs/rubs/gallops; pulses intact and symmetric at radial, DP, and PT Lungs: no acute respiratory distress; symmetrical chest wall expansion; clear breath sounds across all lung edouard w/o adventitious sounds; no wheezing ABD: Soft, NTP; BS present; no rebound/guarding; no distention MSK: no tics or fasciculations; no edema noted in the LEs b/l, nonerythematous Lower extremities: Weeping along the bottom of the left leg; malodorous; 2 inch circumferential ulcer on the sole of the right foot with purulent drainage (see photo below); erythema on the dorsal aspect of the right foot Neuro: A&Ox3; normal mood and affect; fluent speech; no focal deficits; diminished sensation in the LEs B/L Results & Data Results & Data Vital Signs (Past 12 Hours) Vital Signs Temp Pulse Resp BP Pulse Ox O2 Del Method 03/02/24 16:30 141/62 H 03/02/24 16:30 141/62 H 03/02/24 16:30 86 20 97 Room Air 03/02/24 16:01 85 18 98 Room Air 03/02/24 16:01 134/58 L 03/02/24 16:00 75 19 100 Room Air 03/02/24 15:32 86 03/02/24 15:30 108/46 L 03/02/24 15:30 76 19 95 Room Air 03/02/24 15:00 84 18 94 Room Air 03/02/24 15:00 125/65 03/02/24 15:00 125/65 03/02/24 14:56 36.6 C 80 18 125/65 95 Room Air 03/02/24 14:52 87 21 97 Laboratory Results Abnormal lab results 03/02/24 Range/Units 14:50 RBC 3.54 L (4.70-6.10) M/uL Hgb 9.6 L (14.0-18.0) g/dl Hct 30.9 L (42.0-52.0) % MCHC 31.1 L (32.0-36.0) g/dL RDW Std Deviation 51.4 H (36.4-46.3) fL RDW Coeff of Casandra 16.2 H (11.5-14.5) % Lymph # (Auto) 1.13 L (1.20-3.40) K/uL Cobb # (Auto) 0.72 H (0.11-0.59) K/uL Sodium 135 L (136-145) mmol/L Chloride 91 L (98-107) mmol/L Carbon Dioxide 36 H (21-32) mmol/L Creatinine 3.39 H (0.6-1.4) mg/dl BUN/Creatinine Ratio 6.5 L (10-20) Glucose 210 H (70-99(Fasting)) mg/dl C-Reactive Protein 11.73 H (0-0.5) mg/dl Code Status & VTE Plan Code Status DNR/DNI VTE Prophylaxis Plan VTE Prophylaxis will be ordered: No Supervising Physician Co-Signing Physician Notes I personally saw and examined the patient. I independently reviewed the labs, EKG, imaging, problem list, medication list, past medical history and family history. I verified all gaitan points and agree with Ralf Young PA-C with the following exceptions and/or additions: 88 year old male presents to the ER with weeping right lower extremity wound from his dialysis appointment. He completed dialysis today. No fever or chills. He is unsure if the wound is any worse than usual. Referred to podiatry as outpatient for osteomyelitis on MRI on 02/24 O/E A&Ox3, HS RRR, no murmurs, Chest CTAB, Abdo SNT, trace pedal edema, erythema from right toes to knee likely originating from plantar ulcer seen in pictures above, no left foot erythema, venous stasis changes on left side only A/P Osteomyelitis with surrounding cellulitis - Daptomycin + Zosyn, US arterial doppler previously performed and good cap refill in toes. US venous dopppler to r/o DVT. ESRD on dialysis - consult nephrology PG Care Time/CCT Total # of Minutes Spent Total Time Spent with Patient: Total time spent is greater than 50% in coordination of care (as documented) at patient's floor/unit and/or counseling patient: Coding [place] [id number] INT INP/OBS CARE 3/75MIN Patient Type Established Medical Decision Making High Complexity Diagnoses Acute osteomyelitis of right foot M86.171 ESRD on dialysis N18.6; Z99.2 Diabetic nephropathy associated with type 2 diabetes mellitus E11.21 Chronic upper GI bleeding K92.2 Cellulitis of right foot L03.115 Diabetic ulcer of right midfoot associated with type 2 diabetes mellitus, with bone involvement without evidence of necrosis E11.621; L97.416 Diabetes mellitus type: type 2 Diabetic foot ulcer location: midfoot Non-pressure ulcer stage: with bone involvement without evidence of necrosis Heart failure I50.9 GAVE (gastric antral vascular ectasia) K31.819 (6) Diabetic ulcer of right foot Diabetes mellitus type: type 2 Diabetic foot ulcer location: midfoot Non- pressure ulcer stage: with bone involvement without evidence of necrosis Qualified Code(s): E11.621 - Type 2 diabetes mellitus with foot ulcer; L97.416 - Non-pressure chronic ulcer of right heel and midfoot with bone involvement without evidence of necrosis
--- NOTE | 2024-03-02 20:05 | Ultrasound Report ---
Exam(s): US VENOUS RIGHT LOWER EXTREMITY EXAM: US Duplex Right Lower Extremity Veins CLINICAL HISTORY: Reason for exam: Erythematous, swollen right lower extremity. TECHNIQUE: Real-time duplex ultrasound scan of the right lower extremity veins integrating B-mode two-dimensional vascular structure, Doppler spectral analysis, color flow Doppler imaging and compression. COMPARISON: None. FINDINGS: Deep veins: Unremarkable. No DVT in the visualized common femoral, femoral, proximal deep femoral or popliteal veins. The veins demonstrate normal color flow, are normally compressible, with normal phasic flow and/or augmentation response. Superficial veins: Unremarkable. No thrombus in the visualized great saphenous vein. Soft tissues: No acute findings. No popliteal cyst. IMPRESSION: No ultrasonographic evidence of deep venous thrombosis involving the right lower extremity. Electronically signed by: Vidya Torres MD 03/02/24 20:04 PM
[2024-03-02] MEDS ORDERED: LORazepam 0.5 MG TAB PO PRN (22:53)
[2024-03-02] MEDS ORDERED: GLUCOSE 40% GEL 15 GM TUBE PO PRN (22:53)
[2024-03-02] MEDS ORDERED: GLUCAGON FOR INJ 1 MG VIAL SQ PRN (22:53)
[2024-03-02] MEDS ORDERED: MELATONIN 3 MG TAB PO PRN (22:53)
[2024-03-02] MEDS ORDERED: DEXTROSE 50% 50 ML SYRINGE IV PRN (22:53)
[2024-03-02] MEDS ORDERED: CARBOHYDRATES FOR HYPOGLYCEMIA PO PRN (22:53)
[2024-03-02] MEDS ORDERED: PHARMACY GLYCEMIC MGMT CONSULT PRN (22:53)
[2024-03-02] MEDS ORDERED: GLUCOSE 10 TAB/TUBE PO PRN (22:53)
[2024-03-03] MEDS: METOPROLOL TARTRATE 50 MG TAB PO SCH (00:18)
[2024-03-03] MEDS: INSULIN ASPART PER UNIT CHARGE SC SCH (00:28)
[2024-03-03] MEDS: LANTUS PER UNIT CHARGE SQ SCH ×2 (00:30→22:08)
[2024-03-03] MEDS: PIPERACILLIN/TAZOBACTAM 4.5 GM in DEXTROSE 5% MINI-B 100 ML IV SCH ×2 (01:14→13:51)
[2024-03-03] MEDS ORDERED: DOCUSATE SODIUM SYRUP 100 MG/10 ML UDC PO PRN (01:18)
[2024-03-03] MEDS: INSULIN ASPART PER UNIT CHARGE SC ONE (05:43)
[2024-03-03 06:25] LABS: Basophils # (auto) 0.02 K/uL (0.00-0.20); Basophils % (auto) 0.3 %; Eosinophils # (auto) 0.13 K/uL (0.00-0.50); Eosinophils % (auto) 1.7 %; Hematocrit (blood only) 30.6 % (42.0-52.0); Hemoglobin 9.5 g/dl (14.0-18.0); Immature Granulocytes # (auto) 0.07 K/uL (0.01-0.20); Immature Granulocytes % (auto) 0.9 %; Lymphocytes # (auto) 1.19 K/uL (1.20-3.40); Lymphocytes % (auto) 15.7 %; Mean Corpuscular Hemoglobin 27.5 pg (25.0-34.0); Mean Corpuscular Volume 88.4 fL (80.0-100.0); Mean Platelet Volume 10.5 fL (9.4-12.4); Monocytes # (auto) 0.86 K/uL (0.11-0.59); Monocytes % (auto) 11.4 %; Platelet Count 147 K/uL (130-400); RDW Coefficient of Variation 16.5 % (11.5-14.5); RDW Standard Deviation 53.5 fL (36.4-46.3); Red Blood Count 3.46 M/uL (4.70-6.10); White Blood Count 7.57 K/ul (4.8-10.8)
[2024-03-03 06:42] LABS: Calcium 8.6 mg/dl (8.6-10.3); Potassium 3.8 mmol/L (3.5-5.1)
[2024-03-03 06:51] LABS: BUN Creatinine Ratio 7.6 (10-20); C Reactive Protein 12.3 mg/dl (0-0.5); Creatinine Clr Calc Pharmacy 11.5 ml/min; Est GFR (African American) 11.8 ml/min; Est GFR (Non-African American) 10.2 ml/min
[2024-03-03] MEDS: COLLAGENASE OINT 30 GM TUBE EXT SCH (09:08)
[2024-03-03] MEDS: amLODIPine BESYLATE 5 MG TAB PO SCH (09:09)
[2024-03-03] MEDS: NEPHROCAPS PO SCH (09:09)
[2024-03-03] MEDS: CALCIUM ACETATE 667 MG CAP/TAB PO SCH (09:09)
[2024-03-03] MEDS: FOLIC ACID 1 MG TAB PO SCH (09:09)
--- NOTE | 2024-03-03 09:47 | Infectious Disease Consult ---
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 He was seen at wound care on 01/27 at which time he had an excisional debridement and noted to have wound probe to bone, was planned for an MRI of foot given concerns for OM. WCX at that time with Pantoea agglomerans and MRSA. He also had another nonexcisional debridement on 02/19 wound care visit. On admission, was afebrile, vss. WBC wnl. ESR 94, CRP 12.3. MRI of R foot on 02/24 with osteomyelitis involving the head/neck of the fifth metatarsal and the base/proximal shaft of the fifth proximal phalanx; large plantar ulceration is seen at the level of the fifth metatarsophalangeal joint; diffuse cellulitis throughout the forefoot. Admission CXR with mild pulmonary vascular congestion and trace R pleural effusions. RLE doppler negative for DVT. He has been started on daptomycin and zosyn. ID consulted 03/03 for assistance. # OM of right head/neck of the fifth MT and base/proximal shaft of the fifth proximal phalanx # RLE cellulitis # h/o T2DM # ESRD on HD MWF - podiatry consult - continue on daptomycin and zosyn for cellulitis otherwise would have held abx to get better yield of surgical cultures - f/u blood cx - final regimen/duration pending above ID will continue to follow. If questions or concerns, contact Infectious Disease Call Center . Kellie Page MD [facility], Division of Infectious Diseases [facility]: [phone] Consultation Information Consultation was provided via telemedicine using two-way real-time interactive telecommunication between the patient and the telemedicine provider. For the duration of the visit, the provider was performing the assessment from a different facility than the patient. This includesuse of bluetooth stethoscope forauscultationperformed by the telepresenter that the telemedicine provider can hear if described in the physical exam. Substance Abuse Specialist contact information: Please call [facility] Call Center . (Phone Number For Physician Use Only) After establishing a telemedicine visit, patient was: Patient was verified with two unique identifiers, Patient/authorized rep acknowledged consent and understanding and Gave permission to continue telehealth session Time Spent with Patient: Initial => 75 min History of Present Illness Reason for Consultation: osteomyelitis Attending Physician: Bryan Mcnulty MD History of Present Illness 88yo M with h/o ESRD on HD MWF via RUE AVF, afib, HFpEF, T2DM c/b neuropathy and nephropathy, HTN, NSTEMI, bullous emphysema, pulmonary HTN, cirrhosis, lymphoid interstitial pneumonitis, prostate cancer, chronic UGIB 11/15 GAVE, recent admission 01/16-01/20 with right foot ulcer and cellulitis (cx with MRSA, treated wi dapto/zosyn->clinda x 7 days, XR was negative for osseous abnormalities, was seen by podiatry and no probe to bone at that time) who presented on 03/02 with weakness, tachycardia, and confusion while at dialysis center. Patient states he completed a 7 day course of abx, cannot recall if this was related to his last admission. He was seen at wound care on 01/27 at which time he had an excisional debridement and noted to have wound probe to bone, was planned for an MRI of foot given concerns for OM. WCX at that time with Pantoea agglomerans and MRSA. He also had another nonexcisional debridement on 02/19 wound care visit. Unclear if he had abx during this time, but this was not documented in notes. He was referred to outpatient podiatry but patient had not seen them yet. He developed pain in his foot yesterday and had some seeping of he left leg and says that was why he was sent to the ED from dialysis center. He doesnt make urine. He says his legs are always a bit red. Doesnt recall any recent injuries. No vomiting or diarrhea, but does have incontinent stools. Note, at his last admission he had stated that he wore new slippers at which time he developed the wound on his right foot over the course of 1-2 weeks. On admission, was afebrile, vss. WBC wnl. ESR 94, CRP 12.3. MRI of R foot on 02/24 with osteomyelitis involving the head/neck of the fifth metatarsal and the base/proximal shaft of the fifth proximal phalanx; large plantar ulceration is seen at the level of the fifth metatarsophalangeal joint; diffuse cellulitis throughout the forefoot. Admission CXR with mild pulmonary vascular congestion and trace R pleural effusions. RLE doppler negative for DVT. He has been started on daptomycin and zosyn. ID consulted 03/03 for assistance. Allergies Allergy/AdvReac Type Severity Reaction Status Date / Time clarithromycin AdvReac Intermediate confusion Verified 02/27/24 09:04 fish oil AdvReac Intermediate hx of Verified 02/27/24 09:04 hemorrhage in past Sulfa (Sulfonamide AdvReac Intermediate severe Verified 02/27/24 09:04 Antibiotics) agitation/delirium Home Medications Medication Instructions Recorded Confirmed Type vit B complx, C-iron 8 mg-folic 1 tab PO QAM 03/05/19 03/02/24 History acid 800 mcg-D3 1,000 unit-zinc tablet (ProRenal) calcium acetate(phosphat bind) 667 2,001 mg PO TIDM 05/03/21 03/02/24 History mg capsule docusate sodium 50 mg capsule 50 mg PO DAILY PRN Constipation 05/03/21 03/02/24 History (Colace Clear) lorazepam 0.5 mg tablet 0.5 mg PO Q12H PRN anxiety #60 tabs 01/23/22 03/02/24 Rx pravastatin 40 mg tablet 40 mg PO QPM #90 tabs 01/14/23 03/02/24 Rx pen needle, diabetic 32 gauge x #200 ea 06/19/23 03/02/24 Rx 5/32" (BD Ultra-Fine Tiffanie Pen Needle) metoprolol tartrate 50 mg tablet 50 mg PO BID #180 tabs 07/16/23 03/02/24 Rx nitroglycerin 0.4 mg sublingual 0.4 mg sublingual Q5M PRN 09/25/23 03/02/24 Rx tablet hypertensive emergency #25 tabs folic acid 1 mg tablet 1 mg PO QAM 12/02/23 03/02/24 History insulin aspar prt-insulin aspart See Rx Instructions .Route 12/19/23 03/02/24 Rx 100 unit/mL (70-30) subcutaneous .COMPLEX #50 mL soln (Novolog Mix 70-30 U-100 Insuln) amlodipine 5 mg tablet 5 mg PO 4XWK #90 tabs 12/23/23 03/02/24 Rx collagenase clostridium histo. 250 1 applic EXT DAILY #30 grams 01/21/24 03/02/24 Rx unit/gram topical ointment (Santyl) Patient History Medical History (Updated 03/02/24 @ 17:20 by Ralf Young PA-C) Diabetic foot ulcer Venous stasis of both lower extremities Atrial fibrillation ESRD needing dialysis CAD (coronary artery disease) Hypertension Diabetic peripheral neuropathy associated with type 2 diabetes mellitus Elevated troponin Acute respiratory failure with hypoxia Weakness Hyperkalemia Pulmonary edema Acute respiratory failure Exertional dyspnea Chest pain AV fistula AV fistula Anxiety Breathlessness Right shoulder tendinitis Right shoulder pain T2DM (type 2 diabetes mellitus) Acute dyspnea Anemia COVID-19 COPD (chronic obstructive pulmonary disease) Dialysis AV fistula malfunction Emphysema lung suggested per CXR History of blood transfusion 2/2 GIB felt r/t radiation therapy s/p total of 6 units PRBC's since 10/2018 Arteriovenous fistula thrombosis Gout Osteoarthritis Hearing deficit LEFT Diabetic neuropathy Transient ischemic attack (TIA) (2014) 2014--no deficits, no neurologist 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 Hanna through Right AV fistula 08/17/19 S/P arteriovenous (AV) fistula creation right 05/[address] Hanna S/P dialysis catheter insertion Permcath + attempted thrombectomy: 04/2019: MAC sedation at [facility] History of esophagogastroduodenoscopy (EGD) + CAUTERIZATION (2/2 GIB) History of colonoscopy History of tooth extraction History of cataract surgery RIGHT/LEFT History of cardiac cath X3 = NO STENTS S/P arteriovenous (AV) fistula creation LEFT Right side recently ballooned and stented in [facility] Amputation of left little finger History of arthroscopy LEFT KNEE History of bowel resection BOWEL LACERATION DURING ATTEMPTING POLYPECTOMY H/O prostatectomy Family History Father Family history of diabetes mellitus Hypertension Brother Prostate cancer Mother Heart disease Hypertension Denies family history of Ovarian cancer Breast cancer Lung cancer Colorectal cancer Social History (Updated 01/28/24 @ 13:19 by Bella Cotter RN) Smoking Status: Never smoker Second Hand Exposure: No; Do You Dip or Chew Tobacco: No; Hx Alcohol Use: No Hx Substance Use: No Preferred Language: Sinhala Communication Ability: Effective Visual Impairment: No Limitations Hearing Ability: Normal Doll Repairer Required: No Beliefs That Will Affect Care: None marital status: / Current Living Situation: Alone Current Living Situation Comment: Lives with Grandson current occupational status: retired How many Children do You have: 1 Other Information That Helps Us Care for You: No Feels Safe at Home: Yes Safety Concerns: Feels Safe At This Time Childhood Exposure to Second-Hand Smoke: Yes Diet: regular Diet Comment: regular caffeine: Yes (coffee, once in a while) during the past year weight has: remained stable Dental Care, Regularly: Yes Physical Activity Frequency: Does not Exercise Seatbelt Use: always Sunscreen Use: No Gender Identity: Male Assistive Devices: Denture - Upper, Glasses and Walker Review of System 10-point review of systems reviewed and are negative except for as above. Physical Exam Physical Exam: General: Awake, alert, no acute distress HEENT: NC/AT, EOMI, mmm Neck: supple, no LAD Lungs: respirations non-labored Heart: nl peripheral perfusion Abdomen: soft, NT/ND Back: sacral area with erythema Ext: RLE with more erythema compared to left (both legs with chronic changes), right foot ulcer on lateral surface with dark base, no drainage Skin: as above Neuro: moving all extremities Results & Data Vital Signs (Past 12 Hours) Vital Signs Temp Pulse Resp BP Pulse Ox O2 Del Method 03/03/24 07:44 36.6 C 67 16 133/58 L 95 Room Air 03/02/24 22:15 36.9 C 16 104/61 94 Room Air Laboratory Results Labs reviewed Diagnostic Findings Imaging reviewed
--- NOTE | 2024-03-03 11:39 | Hospitalist Progress Note ---
Date of Service March 03, 2024 Assessment & Plan (1) Acute osteomyelitis of right foot: Plan: Patient presented for worsening right foot cellulitis/ulcer on 03/02 Right foot MRI on 02/25/2024 revealed diffuse cellulitis and osteomyelitis Patient reports he had finished his course of abx at this time Was supposed to follow up with ID and Podiatry outpatient, but had not made the appointment Experienced worsening pain during hemodialysis and was asked to come to the ED Vascular surgery had determined that his blood flow would be adequate for wound healing, in case he gets debridement or amputation Continue Daptomycin and Zosyn ID and Podiatry on consult Continue wound care for now (2) ESRD on dialysis: Plan: Patient is on hemodialysis on //; last dialysis completed on 03/02 No BP, IV, or labs in the right upper extremity Nephrology consulted for inpatient dialysis if needed (3) Diabetic nephropathy associated with type 2 diabetes mellitus: Plan: Last A1c at 7.4% on 01/17/2024 Glucose 210 on admission Lantus BID + SSI T2DM diet BSG ACHS Adjust regimen as needed Pharmacy glycemic management consult in the setting of ESRD (4) Chronic upper GI bleeding: Plan: Noted; Hgb 9.6 on arrival Patient does endorse occasional blood in his stool No signs of active bleeding on clinical exam Follow a.m. CBCs (5) Cellulitis of right foot: (6) Diabetic ulcer of right foot: (7) Heart failure: (8) GAVE (gastric antral vascular ectasia): Plan Disposition: Continue Hospitalization DNR/DNI T2DM diet VTE PPx: Hold chemical DVT PPx given chronic GI bleed; hold mechanical DVT PPx in the setting of weeping legs / diabetic foot infection Admission and Anticipated Discharge Date Admission Date: March 02, 2024 Subjective patient seen and examined, said pain is under better conttrol now Review of Systems Review of Systems: All systems reviewed are negative, apart from the ones contained in the history. Physical Exam Physical Exam: The patient is awake, alert and oriented 3, well developed and well nourished, normocephalic and atraumatic, lying in bed and in no acute distress. HEENT--PERRL, EOMI, mucous membranes and oropharynx mildly dry Neck--supple. No JVD. No bruits. Thyroid normal, trachea midline, no adenopathy. Heart--normal S1 and S2. No murmurs, rubs or gallops. Lungs--clear bilaterally, no respiratory distress, no accessory muscle use. Abdomen--normal bowel sounds and soft. Extremities--right foot wound Dermatologic--dry and erythematous. Neurologic--cranial nerves II through XII grossly intact. Rheumatologic--normal range of motion. Psychiatric--normal affect. Results & Data Results & Data Vital Signs (Past 12 Hours) Vital Signs Temp Pulse Resp BP Pulse Ox O2 Del Method 03/03/24 07:44 97.9 F 67 16 133/58 L 95 Room Air PG Care Time/CCT Total # of Minutes Spent Total Time Spent with Patient: Total time spent is greater than 50% in coordination of care (as documented) at patient's floor/unit and/or counseling patient: Coding Level of Care Code 06119 SUB INP/OBS CARE 2/35MIN Diagnoses Acute osteomyelitis of right foot M86.171 ESRD on dialysis N18.6; Z99.2 Diabetic nephropathy associated with type 2 diabetes mellitus E11.21 Chronic upper GI bleeding K92.2 Cellulitis of right foot L03.115 Diabetic ulcer of right midfoot associated with type 2 diabetes mellitus, with bone involvement without evidence of necrosis E11.621; L97.416 Diabetic foot ulcer location: midfoot Diabetes mellitus type: type 2 Non-pressure ulcer stage: with bone involvement without evidence of necrosis Heart failure I50.9 GAVE (gastric antral vascular ectasia) K31.819 Time Spent (min) 35 (6) Diabetic ulcer of right foot Diabetic foot ulcer location: midfoot Diabetes mellitus type: type 2 Non- pressure ulcer stage: with bone involvement without evidence of necrosis Qualified Code(s): E11.621 - Type 2 diabetes mellitus with foot ulcer; L97.416 - Non-pressure chronic ulcer of right heel and midfoot with bone involvement without evidence of necrosis
--- NOTE | 2024-03-03 12:45 | Nephrology Consultation ---
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 Had dialysis yesterday as regular schedule Saturday, Saturday, Saturday dialysis. Electrolyte, volume status, blood pressure reasonable. Hemoglobin low but relatively stable, chronic. --Dialysis tomorrow, will give Epogen with dialysis. --Continue on Nephrocaps and PhosLo TIDM -- right arm nephrology precaution for AV fistula. Thank you for allowing me to participate in your patient's care. It was a pleasure to see Isidro History of Present Illness Reason for Consultation: ESKD on HD, admitted with osteomyelitis Attending Physician: Bryan Mcnulty MD History of Present Illness Mr. Isidro Madden is a 88 year implement with past medical history significant for ESKD, hypertension, dyslipidemia, DM admitted to the hospital with right foot osteomyelitis. Nephrology consult requested for management of hemodialysis while inpatient. EMR records were reviewed in detail during visit. Isidro presented to ER on 03/02 with generalized weakness, tachycardia, and confusion as well as pain in his foot and seeping from left leg while at dialysis center. He has right foot ulcer since January and recently was admitted from 01/16-01/20, Cx grew MRSA, treated with dapto/zosyn->clinda x 7 days. He has been following with wound care and had MRI on 02/25/24 and had debridement on 02/26. MRI was consistent with osteomyelitis and he was started on Daptomycin and Zosyn on admission. Had out patient vascular evaluation and no intervention was recommended. Labs were otherwise acceptable. Volume status and blood pressure is acceptable. His hemoglobin was acceptable at 9.5 Isidro has ESKD due to DKD, dialyzes MWF at [facility] ( 4hrs 2K 2.5Ca F- 180NR EDW 90kg). His medical history is significant for AODM, HTN, hypercholesterolemia, ASCVD, prostate CA s/p prostatectomy and radiation therapy, radiation colitis w/ intermittent LGI bleeding requiring frequent blood transfusion and lung nodules that are being monitored by [facility]. Overall he was otherwise asymptomatic this morning and seems to be at his baseline. Hemoglobin 9.7. Blood pressure fair. Allergies Allergy/AdvReac Type Severity Reaction Status Date / Time clarithromycin AdvReac Intermediate confusion Verified 02/27/24 09:04 fish oil AdvReac Intermediate hx of Verified 02/27/24 09:04 hemorrhage in past Sulfa (Sulfonamide AdvReac Intermediate severe Verified 02/27/24 09:04 Antibiotics) agitation/delirium Home Medications Medication Instructions Recorded Confirmed Type vit B complx, C-iron 8 mg-folic 1 tab PO QAM 03/05/19 03/02/24 History acid 800 mcg-D3 1,000 unit-zinc tablet (ProRenal) calcium acetate(phosphat bind) 667 2,001 mg PO TIDM 05/03/21 03/02/24 History mg capsule docusate sodium 50 mg capsule 50 mg PO DAILY PRN Constipation 05/03/21 03/02/24 History (Colace Clear) lorazepam 0.5 mg tablet 0.5 mg PO Q12H PRN anxiety #60 tabs 01/23/22 03/02/24 Rx pravastatin 40 mg tablet 40 mg PO QPM #90 tabs 01/14/23 03/02/24 Rx pen needle, diabetic 32 gauge x #200 ea 06/19/23 03/02/24 Rx 5/32" (BD Ultra-Fine Tiffanie Pen Needle) metoprolol tartrate 50 mg tablet 50 mg PO BID #180 tabs 07/16/23 03/02/24 Rx nitroglycerin 0.4 mg sublingual 0.4 mg sublingual Q5M PRN 09/25/23 03/02/24 Rx tablet hypertensive emergency #25 tabs folic acid 1 mg tablet 1 mg PO QAM 12/02/23 03/02/24 History insulin aspar prt-insulin aspart See Rx Instructions .Route 12/19/23 03/02/24 Rx 100 unit/mL (70-30) subcutaneous .COMPLEX #50 mL soln (Novolog Mix 70-30 U-100 Insuln) amlodipine 5 mg tablet 5 mg PO 4XWK #90 tabs 12/23/23 03/02/24 Rx collagenase clostridium histo. 250 1 applic EXT DAILY #30 grams 01/21/24 03/02/24 Rx unit/gram topical ointment (Santyl) Patient History Medical History (Updated 03/02/24 @ 17:20 by Ralf Young PA-C) Diabetic foot ulcer Venous stasis of both lower extremities Atrial fibrillation ESRD needing dialysis CAD (coronary artery disease) Hypertension Diabetic peripheral neuropathy associated with type 2 diabetes mellitus Elevated troponin Acute respiratory failure with hypoxia Weakness Hyperkalemia Pulmonary edema Acute respiratory failure Exertional dyspnea Chest pain AV fistula AV fistula Anxiety Breathlessness Right shoulder tendinitis Right shoulder pain T2DM (type 2 diabetes mellitus) Acute dyspnea Anemia COVID-19 COPD (chronic obstructive pulmonary disease) Dialysis AV fistula malfunction Emphysema lung suggested per CXR History of blood transfusion 2/2 GIB felt r/t radiation therapy s/p total of 6 units PRBC's since 10/2018 Arteriovenous fistula thrombosis Gout Osteoarthritis Hearing deficit LEFT Diabetic neuropathy Transient ischemic attack (TIA) (2014) 2014--no deficits, no neurologist 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 Hanna through Right AV fistula 08/17/19 S/P arteriovenous (AV) fistula creation right 05/[address] Hanna S/P dialysis catheter insertion Permcath + attempted thrombectomy: 04/2019: MAC sedation at [facility] History of esophagogastroduodenoscopy (EGD) + CAUTERIZATION (2/2 GIB) History of colonoscopy History of tooth extraction History of cataract surgery RIGHT/LEFT History of cardiac cath X3 = NO STENTS S/P arteriovenous (AV) fistula creation LEFT Right side recently ballooned and stented in [facility] Amputation of left little finger History of arthroscopy LEFT KNEE History of bowel resection BOWEL LACERATION DURING ATTEMPTING POLYPECTOMY H/O prostatectomy Family History Father Family history of diabetes mellitus Hypertension Brother Prostate cancer Mother Heart disease Hypertension Denies family history of Ovarian cancer Breast cancer Lung cancer Colorectal cancer Social History (Updated 01/28/24 @ 13:19 by Bella Cotter RN) Smoking Status: Never smoker Second Hand Exposure: No; Do You Dip or Chew Tobacco: No; Hx Alcohol Use: No Hx Substance Use: No Preferred Language: Latvian Communication Ability: Effective Visual Impairment: No Limitations Hearing Ability: Normal Installation And Service Technician Required: No Beliefs That Will Affect Care: None marital status: / Current Living Situation: Alone Current Living Situation Comment: Lives with Grandson current occupational status: retired How many Children do You have: 1 Other Information That Helps Us Care for You: No Feels Safe at Home: Yes Safety Concerns: Feels Safe At This Time Childhood Exposure to Second-Hand Smoke: Yes Diet: regular Diet Comment: regular caffeine: Yes (coffee, once in a while) during the past year weight has: remained stable Dental Care, Regularly: Yes Physical Activity Frequency: Does not Exercise Seatbelt Use: always Sunscreen Use: No Gender Identity: Male Assistive Devices: Walker Review of Systems Review of Systems: Detailed review of system was done and pertinent and positives and negatives were mentioned above. Physical Exam Constitutional: WD/WN, vitals as above no acute distress Eyes: + anicteric sclerae Neck: normal visual inspection Respiratory: Auscultation: lungs clear to auscultation bilaterally Cardiovascular: Rate/Rhythm: regular rate and regular rhythm Heart Sounds: normal S1 and normal S2 Extremities: + AV fistula (RT BC AVF with thrill and bruit.) Gastrointestinal (Abdomen): Inspection/Auscultation: abdomen normal to inspection Percussion/Palpation: abdomen soft; abdomen nontender Musculoskeletal: rt foot dressing Skin: b/l LE with erythema, skin discoloration. Neurologic: no focal motor deficits Psychiatric: Orientation: alert and oriented x 3 Affect: euthymic affect Results & Data Vital Signs (Past 12 Hours) Vital Signs Temp Pulse Resp BP Pulse Ox O2 Del Method 03/03/24 07:44 36.6 C 67 16 133/58 L 95 Room Air PG Care Time/CCT Total # of Minutes Spent Total Time Spent with Patient: Total time spent is greater than 50% in coordination of care (as documented) at patient's floor/unit and/or counseling patient: Coding Level of Care Code 60785 INT INP/OBS CARE 3/75MIN Diagnoses ESRD on dialysis N18.6; Z99.2 Anemia D64.9 Anemia type: due to chronic kidney disease Acute osteomyelitis of right foot M86.171 End-stage renal disease on hemodialysis N18.6; Z99.2 Diabetic ulcer of right midfoot associated with type 2 diabetes mellitus, with fat layer exposed E11.621; L97.412 Diabetes mellitus type: type 2 Diabetic foot ulcer location: midfoot Laterality: right Non-pressure ulcer stage: with fat layer exposed Hypertension I10 (2) Anemia Anemia type: due to chronic kidney disease (5) Diabetic foot ulcer Diabetes mellitus type: type 2 Diabetic foot ulcer location: midfoot Laterality: right Non-pressure ulcer stage: with fat layer exposed Qualified Code(s): E11.621 - Type 2 diabetes mellitus with foot ulcer; L97.412 - Non- pressure chronic ulcer of right heel and midfoot with fat layer exposed
--- NOTE | 2024-03-03 13:53 | Pharmacy Report ---
Pharmacy Glycemic Short Note 2 - Date of Service March 03, 2024 - Glycemic Short BSG Results (Last 24 hours): 03/02/24 03/02/24 03/03/24 14:50 22:56 05:28 Glucose 210 H POC Glucose 256 H 133 H 03/03/24 03/03/24 03/03/24 05:36 07:42 11:30 Glucose 129 H POC Glucose 122 H 215 H OUTPATIENT ANTIDIABETIC REGIMEN: * Novolog mix 35 units with breakfast, 20 units with dinner ASSESSMENT: * 88 year old admitted with diabetic foot ulcer, receiving IV antibiotics. Pharmacy consulted for glycemic management. Patient ESRD on HD - scheduled for MWF. Patient received total of 25 units of insulin yesterday, of which 20 units were basal insulin. * Fasting BSG 122 mg/dL - will continue with 20 units daily of basal insulin for now. May need to titrate up. Outpatient total insulin dose ~55 units, so may need closer to 25-30 units of basal. Plan to continue same novolog for now, based upon weight based stress of 2 dosing. PLAN FOR INPATIENT GLYCEMIC CONTROL: * Hold outpatient oral diabetes medications * Basal insulin * Lantus 20 units SQ HS * Bolus insulin * NovoLog per scale ACHS or Q6hrs while NPO * Goal Range: Low 110 mg/dL - High 140 mg/dL * Correction Factor: 25 mg/dL/unit * Nutritional / Prandial insulin per carb ratio of 1 unit per 8 grams CHO consumed
[2024-03-03] MEDS: ACETAMINOPHEN 325 MG TAB PO PRN (22:10)
--- NOTE | 2024-03-03 22:18 | Podiatry Consultation ---
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 His ulcer was cleaned and redressed with Aquacel and a dry sterile dressing. This also very clearly has underlying osteomyelitis and will require more aggressive treatment. We discussed that this could be IV antibiotics and continued wound care, though he has failed so far. Instead, he is likely to benefit more so from surgical intervention. We did discuss the surgery could be either a partial fifth ray resection or, more conservatively, a fifth metatarsal head resection. he has known peripheral arterial disease and this is likely contributing to his delayed healing. B ecause of this, and his age, I am leaning towards more cautious approach for the surgical intervention. Would like new arterial studies prior to surgery. An order for arterial Doppler was put in. if everything appears appropriate for healing, I will likely plan a fifth metatarsal head resection afternoon. We will continue to follow up with him and keep him in the loop of any other plans. Certainly he has the final say in which procedure he elects for or feet wants continued IV antibiotics and wound care. History of Present Illness Reason for Consultation: Right foot osteomyelitis Attending Physician: Bryan Mcnulty MD History of Present Illness Patient seen at bedside. He presented to the hospital with worsening ulceration to the outside of the right foot. He was here for this last month and was discharged with outpatient follow-up in wound care. He has beeen performing this wound care with the amount that the wound care team, however, has failed to improve. Now, there is prominent bone underlying the ulcer and he was admitted with this osteomyelitis. He states that he has occasional pain and tenderness but otherwise denies any systemic signs or symptoms of infection. He also denie s any other recent medical history change. Allergies Allergy/AdvReac Type Severity Reaction Status Date / Time clarithromycin AdvReac Intermediate confusion Verified 02/27/24 09:04 fish oil AdvReac Intermediate hx of Verified 02/27/24 09:04 hemorrhage in past Sulfa (Sulfonamide AdvReac Intermediate severe Verified 02/27/24 09:04 Antibiotics) agitation/delirium Home Medications Medication Instructions Recorded Confirmed Type vit B complx, C-iron 8 mg-folic 1 tab PO QAM 03/05/19 03/02/24 History acid 800 mcg-D3 1,000 unit-zinc tablet (ProRenal) calcium acetate(phosphat bind) 667 2,001 mg PO TIDM 05/03/21 03/02/24 History mg capsule docusate sodium 50 mg capsule 50 mg PO DAILY PRN Constipation 05/03/21 03/02/24 History (Colace Clear) lorazepam 0.5 mg tablet 0.5 mg PO Q12H PRN anxiety #60 tabs 01/23/22 03/02/24 Rx pravastatin 40 mg tablet 40 mg PO QPM #90 tabs 01/14/23 03/02/24 Rx pen needle, diabetic 32 gauge x #200 ea 06/19/23 03/02/24 Rx 5/32" (BD Ultra-Fine Tiffanie Pen Needle) metoprolol tartrate 50 mg tablet 50 mg PO BID #180 tabs 07/16/23 03/02/24 Rx nitroglycerin 0.4 mg sublingual 0.4 mg sublingual Q5M PRN 09/25/23 03/02/24 Rx tablet hypertensive emergency #25 tabs folic acid 1 mg tablet 1 mg PO QAM 12/02/23 03/02/24 History insulin aspar prt-insulin aspart See Rx Instructions .Route 12/19/23 03/02/24 Rx 100 unit/mL (70-30) subcutaneous .COMPLEX #50 mL soln (Novolog Mix 70-30 U-100 Insuln) amlodipine 5 mg tablet 5 mg PO 4XWK #90 tabs 12/23/23 03/02/24 Rx collagenase clostridium histo. 250 1 applic EXT DAILY #30 grams 01/21/24 03/02/24 Rx unit/gram topical ointment (Santyl) Patient History Medical History Diabetic foot ulcer Venous stasis of both lower extremities Atrial fibrillation ESRD needing dialysis CAD (coronary artery disease) Hypertension Diabetic peripheral neuropathy associated with type 2 diabetes mellitus Elevated troponin Acute respiratory failure with hypoxia Weakness Hyperkalemia Pulmonary edema Acute respiratory failure Exertional dyspnea Chest pain AV fistula AV fistula Anxiety Breathlessness Right shoulder tendinitis Right shoulder pain T2DM (type 2 diabetes mellitus) Acute dyspnea Anemia COVID-19 COPD (chronic obstructive pulmonary disease) Dialysis AV fistula malfunction Emphysema lung suggested per CXR History of blood transfusion 2/2 GIB felt r/t radiation therapy s/p total of 6 units PRBC's since 10/2018 Arteriovenous fistula thrombosis Gout Osteoarthritis Hearing deficit LEFT Diabetic neuropathy Transient ischemic attack (TIA) (2014) 2014--no deficits, no neurologist 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 Hanna through Right AV fistula 08/17/19 S/P arteriovenous (AV) fistula creation right 05/[address] Hanna S/P dialysis catheter insertion Permcath + attempted thrombectomy: 04/2019: MAC sedation at [facility] History of esophagogastroduodenoscopy (EGD) + CAUTERIZATION (2/2 GIB) History of colonoscopy History of tooth extraction History of cataract surgery RIGHT/LEFT History of cardiac cath X3 = NO STENTS S/P arteriovenous (AV) fistula creation LEFT Right side recently ballooned and stented in [facility] Amputation of left little finger History of arthroscopy LEFT KNEE History of bowel resection BOWEL LACERATION DURING ATTEMPTING POLYPECTOMY H/O prostatectomy Family History Father Family history of diabetes mellitus Hypertension Brother Prostate cancer Mother Heart disease Hypertension Denies family history of Ovarian cancer Breast cancer Lung cancer Colorectal cancer Social History Smoking Status: Never smoker Second Hand Exposure: No; Do You Dip or Chew Tobacco: No; Hx Alcohol Use: No Hx Substance Use: No Preferred Language: Armenian Communication Ability: Effective Visual Impairment: No Limitations Hearing Ability: Normal Stator Connector Required: No Beliefs That Will Affect Care: None marital status: / Current Living Situation: Alone Current Living Situation Comment: Lives with Grandson current occupational status: retired How many Children do You have: 1 Other Information That Helps Us Care for You: No Feels Safe at Home: Yes Safety Concerns: Feels Safe At This Time Childhood Exposure to Second-Hand Smoke: Yes Diet: regular Diet Comment: regular caffeine: Yes (coffee, once in a while) during the past year weight has: remained stable Dental Care, Regularly: Yes Physical Activity Frequency: Does not Exercise Seatbelt Use: always Sunscreen Use: No Gender Identity: Male Assistive Devices: Walker Review of Systems Review of Systems: All systems reviewed & are unremarkable except as noted in HPI & below Constitutional: no fever, no chills and no fatigue Eyes: no problem reported Ear, Nose, Mouth, Throat: no problem reported Respiratory: no problem reported Cardiovascular: + edema; no problem reported Gastrointestinal: no nausea, no vomiting and no problem reported Musculoskeletal: no problem reported Integumentary: + skin ulcer, + wounds and + erythema Neurologic: + loss of sensation, + numbness and + pa resthesia; no generalized weakness Psychiatric: no problem reported Physical Exam Constitutional: WD/WN, vitals as above well developed and + ill appearing; no acute distress Eyes: PERRL, conjunctivae normal, anicteric sclerae ENMT: external ear and nose normal, oropharynx normal Neck: trachea midline, no thyromegaly normal visual inspection Respiratory: normal respiratory effort; no respiratory distress Cardiovascular: Rate/Rhythm: regular rate and regular rhythm Chest (Breasts): Chest: normal inspection of chest Gastrointestinal (Abdomen): Inspection/Auscultation: abdomen normal to inspection Percussion/Palpation: + abdomen tender and abdomen soft Musculoskeletal: no cyanosis or clubbing, extremities motor strength 5/5 Head/Neck/Chest: normocephalic and head atraumatic Extremities: extremities normal to inspection and + limited ROM of extremities Skin: + ulcer, + wound, + skin atrophy and + d ry skin Neurologic: awake; no focal motor deficits Psychiatric: A+Ox3, euthymic affect Results & Data Vital Signs (Past 12 Hours) Vital Signs Temp Pulse Resp BP Pulse Ox O2 Del Method 03/03/24 21:48 36.8 C 91 H 16 156/55 H 94 Room Air 03/03/24 14:43 36.8 C 78 16 129/58 L 91 Room Air
[2024-03-04] MEDS: diphenhydrAMINE 50 MG/ML VIAL IV STA (00:13)
[2024-03-04] MEDS: ONDANSETRON INJ 2 MG/ML 2 ML VIAL IV PRN (03:03)
[2024-03-04 03:54] LABS: Basophils # (auto) 0.01 K/uL (0.00-0.20); Basophils % (auto) 0.1 %; Eosinophils # (auto) 0.08 K/uL (0.00-0.50); Eosinophils % (auto) 0.7 %; Hematocrit (blood only) 33.3 % (42.0-52.0); Hemoglobin 10.5 g/dl (14.0-18.0); Immature Granulocytes # (auto) 0.08 K/uL (0.01-0.20); Immature Granulocytes % (auto) 0.7 %; Lymphocytes # (auto) 0.83 K/uL (1.20-3.40); Lymphocytes % (auto) 7.5 %; Mean Corpuscular Hemoglobin 27.8 pg (25.0-34.0); Mean Corpuscular Hgb Conc 31.5 g/dL (32.0-36.0); Mean Corpuscular Volume 88.1 fL (80.0-100.0); Mean Platelet Volume 10.1 fL (9.4-12.4); Monocytes # (auto) 0.49 K/uL (0.11-0.59); Monocytes % (auto) 4.4 %; Neutrophils # (auto) 9.55 K/uL (1.40-6.50); Neutrophils % (auto) 86.6 %; Nucleated RBC # (auto) 0.02 K/uL (0.00-0.12); Nucleated RBC % (auto) 0.2 %; Platelet Count 183 K/uL (130-400); RDW Coefficient of Variation 16.7 % (11.5-14.5); RDW Standard Deviation 53.6 fL (36.4-46.3); Red Blood Count 3.78 M/uL (4.70-6.10); White Blood Count 11.04 K/ul (4.8-10.8)
[2024-03-04 04:02] LABS: C Reactive Protein 11.47 mg/dl (0-0.5); Calcium 9.4 mg/dl (8.6-10.3); Creatinine Clr Calc Pharmacy 8.7 ml/min; Est GFR (African American) 8.4 ml/min; Est GFR (Non-African American) 7.3 ml/min; Potassium 4.5 mmol/L (3.5-5.1)
--- NOTE | 2024-03-04 10:28 | Nephrology Progress Note ---
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 Had dialysis yesterday as regular schedule Saturday, Saturday, Saturday dialysis. Electrolyte, volume status, blood pressure reasonable. Hemoglobin low but relatively stable, chronic. Seen by podiatry and tentatively planning for fifth toe metatarsal head amputation on 03/05/24 pending Doppler. --Dialysis today as regular MWF schedule, will give Epogen with dialysis. --Continue on Nephrocaps and PhosLo TIDM -- right arm nephrology precaution for AV fistula. Admission and Anticipated Discharge Date Admission Date: March 02, 2024 Rosa Maria Felix was seen and evaluated this am. Was having some nausea last night and overall did not feel well but feeling better this morning. Denies abdominal pain. BP fair. Hb >10 Review of Systems Review of Systems: Detailed review of system was done and pertinent and positives and negatives were mentioned above. Physical Exam Constitutional: WD/WN, vitals as above no acute distress Eyes: + anicteric sclerae Neck: normal visual inspection Respiratory: Auscultation: lungs clear to auscultation bilaterally Cardiovascular: Rate/Rhythm: regular rate and regular rhythm Heart Sounds: normal S1 and normal S2 Extremities: + AV fistula (RT BC AVF with thrill and bruit.) Skin: + turgor decreased, + lesion and + ulcer Neurologic: no focal motor deficits Psychiatric: Orientation: alert and oriented x 3 Affect: euthymic affect Results & Data Vital Signs (Past 12 Hours) Vital Signs Temp Pulse Pulse Pulse Pulse Resp BP 03/04/24 10:00 89 119/69 03/04/24 09:40 36.7 C 74 03/04/24 09:13 36.7 C 93 H 16 03/04/24 02:33 36.8 C 95 H 16 BP Pulse Ox O2 Del Method 03/04/24 10:00 03/04/24 09:40 03/04/24 09:13 137/57 L 92 Room Air 03/04/24 02:33 163/53 H 93 Room Air PG Care Time/CCT Total # of Minutes Spent Total Time Spent with Patient: Total time spent is greater than 50% in coordination of care (as documented) at patient's floor/unit and/or counseling patient: Coding Level of Care Code 52084 SUB INP/OBS CARE 2/35MIN Diagnoses ESRD on dialysis N18.6; Z99.2 Anemia D64.9 Anemia type: due to chronic kidney disease Acute osteomyelitis of right foot M86.171 End-stage renal disease on hemodialysis N18.6; Z99.2 Diabetic ulcer of right midfoot associated with type 2 diabetes mellitus, with fat layer exposed E11.621; L97.412 Diabetes mellitus type: type 2 Diabetic foot ulcer location: midfoot Laterality: right Non-pressure ulcer stage: with fat layer exposed Hypertension I10 (2) Anemia Anemia type: due to chronic kidney disease (5) Diabetic foot ulcer Diabetes mellitus type: type 2 Diabetic foot ulcer location: midfoot Laterality: right Non-pressure ulcer stage: with fat layer exposed Qualified Code(s): E11.621 - Type 2 diabetes mellitus with foot ulcer; L97.412 - Non- pressure chronic ulcer of right heel and midfoot with fat layer exposed
--- NOTE | 2024-03-04 10:32 | Gastrointestinal Consultation ---
Date of Consultation March 04, 2024 Assessment & Plan (1) Heme positive stool: (2) Anemia: Plan Patient is an 88 year old male admitted with weakness, confusion, and tachycardia. He has history of ESRD on dialysis. GI consult placed for heme positive stools. no active GI bleeding seen and his hgb is actually improved today. 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 no current GI concerns. - Will start protonix 40mg po bid. He is not currently on any PPI. - follow hgb/hct, transfuse as needed. - he should follow with his regular GI group on discharge. Supervising Physician Co-Signing Physician Notes Agree with ANSLEY Salomon as above Interviewed and examined patient and agree with above Abd: Soft, NT, ND, +BS Continue current therapy and supportive care No plans for invasive testing History of Present Illness Reason for Consultation: GIB Requesting Physician: Bryan Mcnulty MD Attending Physician: Bryan Mcnulty MD History of Present Illness Patient is an 88 year old male with PMH of T2DM, GAVE, chronic upper GI bleeding, dyslipidemia, prostate cancer, Sjogren's, first-degree AV block, LIP, NSTEMI, HFpEF, and ESRD on dialysis (M/W/F). He presented for weakness, tachycardia, and confusion on 03/02 while at the kidney care center. Patient received a full course of dialysis on 03/02. Patient does have a diabetic foot ulcer on the sole of his right foot x 5 weeks (required [place] admission on 01/16), and he tells me he has been having issues with seepage from that site. During his inpatient evaluation he had heme positive stools. hgb had been stable at 9.5 and actually improved to 10.5 today. He denies any signs of GI bleeding. 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 In the past, he had followed with PS. Last EGD/Colon oscopy I have access to was in 2019 showing colon polyps, inflammation of colonic anastamosis, LA-A esophagitis, nonbleeding gastric ulcer, and dudoenal erosions without bleeding. GI ros unremarkable. Allergies Allergy/AdvReac Type Severity Reaction Status Date / Time clarithromycin AdvReac Intermediate confusion Verified 02/27/24 09:04 fish oil AdvReac Intermediate hx of Verified 02/27/24 09:04 hemorrhage in past Sulfa (Sulfonamide AdvReac Intermediate severe Verified 02/27/24 09:04 Antibiotics) agitation/delirium Home Medications Medication Instructions Recorded Confirmed Type vit B complx, C-iron 8 mg-folic 1 tab PO QAM 03/05/19 03/02/24 History acid 800 mcg-D3 1,000 unit-zinc tablet (ProRenal) calcium acetate(phosphat bind) 667 2,001 mg PO TIDM 05/03/21 03/02/24 History mg capsule docusate sodium 50 mg capsule 50 mg PO DAILY PRN Constipation 05/03/21 03/02/24 History (Colace Clear) lorazepam 0.5 mg tablet 0.5 mg PO Q12H PRN anxiety #60 tabs 01/23/22 03/02/24 Rx pravastatin 40 mg tablet 40 mg PO QPM #90 tabs 01/14/23 03/02/24 Rx pen needle, diabetic 32 gauge x #200 ea 06/19/23 03/02/24 Rx 5/32" (BD Ultra-Fine Tiffanie Pen Needle) metoprolol tartrate 50 mg tablet 50 mg PO BID #180 tabs 07/16/23 03/02/24 Rx nitroglycerin 0.4 mg sublingual 0.4 mg sublingual Q5M PRN 09/25/23 03/02/24 Rx tablet hypertensive emergency #25 tabs folic acid 1 mg tablet 1 mg PO QAM 12/02/23 03/02/24 History insulin aspar prt-insulin aspart See Rx Instructions .Route 12/19/23 03/02/24 Rx 100 unit/mL (70-30) subcutaneous .COMPLEX #50 mL soln (Novolog Mix 70-30 U-100 Insuln) amlodipine 5 mg tablet 5 mg PO 4XWK #90 tabs 12/23/23 03/02/24 Rx collagenase clostridium histo. 250 1 applic EXT DAILY #30 grams 01/21/24 03/02/24 Rx unit/gram topical ointment (Santyl) Patient History Medical History Diabetic foot ulcer Venous stasis of both lower extremities Atrial fibrillation ESRD needing dialysis CAD (coronary artery disease) Hypertension Diabetic peripheral neuropathy associated with type 2 diabetes mellitus Elevated troponin Acute respiratory failure with hypoxia Weakness Hyperkalemia Pulmonary edema Acute respiratory failure Exertional dyspnea Chest pain AV fistula AV fistula Anxiety Breathlessness Right shoulder tendinitis Right shoulder pain T2DM (type 2 diabetes mellitus) Acute dyspnea Anemia COVID-19 COPD (chronic obstructive pulmonary disease) Dialysis AV fistula malfunction Emphysema lung suggested per CXR History of blood transfusion 2/2 GIB felt r/t radiation therapy s/p total of 6 units PRBC's since 10/2018 Arteriovenous fistula thrombosis Gout Osteoarthritis Hearing deficit LEFT Diabetic neuropathy Transient ischemic attack (TIA) (2014) 2014--no deficits, no neurologist 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 Hanna through Right AV fistula 08/17/19 S/P arteriovenous (AV) fistula creation right 05/[address] Hanna S/P dialysis catheter insertion Permcath + attempted thrombectomy: 04/2019: MAC sedation at [facility] History of esophagogastroduodenoscopy (EGD) + CAUTERIZATION (2/2 GIB) History of colonoscopy History of tooth extraction History of cataract surgery RIGHT/LEFT History of cardiac cath X3 = NO STENTS S/P arteriovenous (AV) fistula creation LEFT Right side recently ballooned and stented in [facility] Amputation of left little finger History of arthroscopy LEFT KNEE History of bowel resection BOWEL LACERATION DURING ATTEMPTING POLYPECTOMY H/O prostatectomy Family History Father Family history of diabetes mellitus Hypertension Brother Prostate cancer Mother Heart disease Hypertension Denies family history of Ovarian cancer Breast cancer Lung cancer Colorectal cancer Social History Smoking Status: Never smoker Second Hand Exposure: No; Do You Dip or Chew Tobacco: No; Hx Alcohol Use: No Hx Substance Use: No Preferred Language: Malay Communication Ability: Effective Visual Impairment: No Limitations Hearing Ability: Normal Public Relations Professional Required: No Beliefs That Will Affect Care: None marital status: / Current Living Situation: Alone Current Living Situation Comment: Lives with Grandson current occupational status: retired How many Children do You have: 1 Other Information That Helps Us Care for You: No Feels Safe at Home: Yes Safety Concerns: Feels Safe At This Time Childhood Exposure to Second-Hand Smoke: Yes Diet: regular Diet Comment: regular caffeine: Yes (coffee, once in a while) during the past year weight has: remained stable Dental Care, Regularly: Yes Physical Activity Frequency: Does not Exercise Seatbelt Use: always Sunscreen Use: No Gender Identity: Male Assistive Devices: Walker Review of Systems Review of Systems: All systems reviewed & are unremarkable except as noted in HPI & below Physical Exam Constitutional: WD/WN, vitals as above Respiratory: normal respiratory effort, lungs clear to auscultation Cardiovascular: RRR, no murmur, no edema Gastrointestinal (Abdomen): normal bowel sounds, soft, nontender, no hepatosplenomegaly Psychiatric: Orientation: alert and oriented x 3 Affect: euthymic affect Results & Data Vital Signs (Past 12 Hours) Vital Signs Temp Pulse Pulse Pulse Pulse Resp BP 03/04/24 10:00 89 119/69 03/04/24 09:40 98.1 F 74 03/04/24 09:13 98.1 F 93 H 16 03/04/24 02:33 98.2 F 95 H 16 BP Pulse Ox O2 Del Method 03/04/24 10:00 03/04/24 09:40 03/04/24 09:13 137/57 L 92 Room Air 03/04/24 02:33 163/53 H 93 Room Air Coding Level of Care Code 59630 INT INP/OBS CARE 2/55MIN Diagnoses Heme positive stool R19.5 Anemia D64.9 Anemia type: due to chronic kidney disease (2) Anemia Anemia type: due to chronic kidney disease
--- NOTE | 2024-03-04 11:34 | Ultrasound Report ---
US arterial duplex right lower extremity CLINICAL HISTORY: Right foot osteomyelitis. COMPARISON STUDY: Bilateral lower extremity arterial duplex study 01/18/2024. FINDINGS: Scattered calcified plaque seen throughout the right lower extremity arterial system. There are normal biphasic to triphasic waveforms and velocities seen within the right common femoral and r ight popliteal arteries. Focal area of borderline elevated peak systolic velocity of 185 cm/s within the proximal right superficial femoral artery. Monophasic waveforms seen within the right calf arteri es and right dorsalis pedis artery. No flow identified within the proximal to mid right posterior tib ial artery which is likely occluded. Elevated peak systolic velocity within the right peroneal artery of 293 cm/s consistent with stenosis. Low velocity monophasic waveforms within the distal right post erior tibial artery. IMPRESSION: 1. Redemonstration of the occluded proximal to mid right posterior tibial artery. 2. Scattered calcified plaque throughout the right lower extremity arterial system. 3. Focal area of hemodynamically significant stenosis within the right peroneal artery. 4. Borderline stenosis within the proximal right superficial femoral artery. ACT 112: Negative or not required by law. Electronically signed by: Ralf Nicole M.D. 03/04/2024 11:32 AM
--- NOTE | 2024-03-04 12:16 | Hospitalist Progress Note ---
Date of Service March 04, 2024 Assessment & Plan (1) Acute osteomyelitis of right foot: Plan: Patient presented for worsening right foot cellulitis/ulcer on 03/02 Right foot MRI on 02/25/2024 revealed diffuse cellulitis and osteomyelitis Patient reports he had finished his course of abx at this time Also with an underlying osteomyelitis, likely did not benefit from surgery by podiatry. Await the results and further recommendations from podiatry. Vascular surgery had determined that his blood flow would be adequate for wound healing, in case he gets debridement or amputation, However repeat vascular study has been ordered Continue Daptomycin and Zosyn Continue wound care for now (2) ESRD on dialysis: Plan: Patient on Saturday and Saturday sessions of hemodialysis Nephrology on consult (3) Diabetic nephropathy associated with type 2 diabetes mellitus: Plan: Last A1c at 7.4% on 01/17/2024 Glucose 210 on admission Lantus BID + SSI T2DM diet BSG ACHS Adjust regimen as needed Pharmacy glycemic management consult in the setting of ESRD (4) Chronic upper GI bleeding: Plan: Noted; Hgb 9.6 on arrival Patient does endorse occasional blood in his stool No signs of active bleeding on clinical exam Follow a.m. CBCs (5) Cellulitis of right foot: (6) Diabetic ulcer of right foot: (7) Heart failure: (8) GAVE (gastric antral vascular ectasia): Plan Disposition: Continue Hospitalization DNR/DNI T2DM diet VTE PPx: Hold chemical DVT PPx given chronic GI bleed; hold mechanical DVT PPx in the setting of weeping legs / diabetic foot infection Admission and Anticipated Discharge Date Admission Date: March 02, 2024 Subjective Patient seen and examined, no new complaints today going for vascular studies Review of Systems Review of Systems: All systems reviewed are negative, apart from the ones contained in the history. Physical Exam Physical Exam: The patient is awake, alert and oriented 3, well developed and well nourished, normocephalic and atraumatic, lying in bed and in no acute distress. HEENT--PERRL, EOMI, mucous membranes and oropharynx mildly dry Neck--supple. No JVD. No bruits. Thyroid normal, trachea midline, no adenopathy. Heart--normal S1 and S2. No murmurs, rubs or gallops. Lungs--clear bilaterally, no respiratory distress, no accessory muscle use. Abdomen--normal bowel sounds and soft. Extremities--right foot wound Dermatologic--dry and erythematous. Neurologic--cranial nerves II through XII grossly intact. Rheumatologic--normal range of motion. Psychiatric--normal affect. Results & Data Results & Data Vital Signs (Past 12 Hours) Vital Signs Temp Pulse Pulse Pulse Pulse Resp BP 03/04/24 12:00 84 126/61 03/04/24 11:30 89 140/69 03/04/24 11:00 82 109/63 03/04/24 10:30 77 124/55 L 03/04/24 10:00 89 119/69 03/04/24 09:40 98.1 F 74 03/04/24 09:13 98.1 F 93 H 16 03/04/24 08:05 03/04/24 02:33 98.2 F 95 H 16 BP Pulse Ox O2 Del Method 03/04/24 12:00 03/04/24 11:30 03/04/24 11:00 03/04/24 10:30 03/04/24 10:00 03/04/24 09:40 03/04/24 09:13 137/57 L 92 Room Air 03/04/24 08:05 Room Air 03/04/24 02:33 163/53 H 93 Room Air PG Care Time/CCT Total # of Minutes Spent Total Time Spent with Patient: Total time spent is greater than 50% in coordination of care (as documented) at patient's floor/unit and/or counseling patient: Coding Level of Care Code 64462 SUB INP/OBS CARE 2/35MIN Diagnoses Acute osteomyelitis of right foot M86.171 ESRD on dialysis N18.6; Z99.2 Diabetic nephropathy associated with type 2 diabetes mellitus E11.21 Chronic upper GI bleeding K92.2 Cellulitis of right foot L03.115 Diabetic ulcer of right midfoot associated with type 2 diabetes mellitus, with bone involvement without evidence of necrosis E11.621; L97.416 Diabetic foot ulcer location: midfoot Diabetes mellitus type: type 2 Non-pressure ulcer stage: with bone involvement without evidence of necrosis Heart failure I50.9 GAVE (gastric antral vascular ectasia) K31.819 Time Spent (min) 35 (6) Diabetic ulcer of right foot Diabetic foot ulcer location: midfoot Diabetes mellitus type: type 2 Non- pressure ulcer stage: with bone involvement without evidence of necrosis Qualified Code(s): E11.621 - Type 2 diabetes mellitus with foot ulcer; L97.416 - Non-pressure chronic ulcer of right heel and midfoot with bone involvement without evidence of necrosis
[2024-03-04] MEDS: EPOETIN ALFA 10,000 UNITS/ML VIAL IV ONE (13:22)
[2024-03-04] MEDS: PANTOprazole 40 MG TAB PO SCH (13:59)
[2024-03-04] MEDS: DAPTOmycin 475 MG in SYRINGE 0 ML IV SCH (17:20)
[2024-03-04] MEDS: LANTUS PER UNIT CHARGE SQ SCH (22:14)
[2024-03-05] MEDS: INSULIN ASPART PER UNIT CHARGE SC SCH ×2 (00:46→20:48)
[2024-03-05 06:47] LABS: Basophils # (auto) 0.03 K/uL (0.00-0.20); Basophils % (auto) 0.3 %; Eosinophils % (auto) 2.9 %; Hematocrit (blood only) 32.3 % (42.0-52.0); Hemoglobin 9.9 g/dl (14.0-18.0); Immature Granulocytes # (auto) 0.12 K/uL (0.01-0.20); Immature Granulocytes % (auto) 1.2 %; Lymphocytes # (auto) 1.11 K/uL (1.20-3.40); Lymphocytes % (auto) 10.8 %; Mean Corpuscular Hgb Conc 30.7 g/dL (32.0-36.0); Mean Corpuscular Volume 88.3 fL (80.0-100.0); Monocytes # (auto) 0.79 K/uL (0.11-0.59); Monocytes % (auto) 7.7 %; Neutrophils # (auto) 7.95 K/uL (1.40-6.50); Neutrophils % (auto) 77.1 %; Nucleated RBC # (auto) 0.02 K/uL (0.00-0.12); Nucleated RBC % (auto) 0.2 %; Platelet Count 183 K/uL (130-400); RDW Coefficient of Variation 17.1 % (11.5-14.5); RDW Standard Deviation 54.5 fL (36.4-46.3); Red Blood Count 3.66 M/uL (4.70-6.10)
[2024-03-05 07:12] LABS: BUN Creatinine Ratio 6.1 (10-20); C Reactive Protein 13.83 mg/dl (0-0.5); Calcium 8.9 mg/dl (8.6-10.3); Creatinine Clr Calc Pharmacy 10.2 ml/min; Est GFR (African American) 11.3 ml/min; Est GFR (Non-African American) 9.7 ml/min; Potassium 4.2 mmol/L (3.5-5.1)
--- NOTE | 2024-03-05 10:27 | Nephrology Progress Note ---
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 Had dialysis yesterday as regular schedule Saturday, Saturday, Saturday dialysis. Electrolyte, volume status, blood pressure reasonable. Hemoglobin low but relatively stable, chronic. Seen by podiatry and tentatively planning for fifth toe metatarsal head amputation on 03/05/24. Arteria Doppler of LE showed significant PVD. --waiting on fifth toe metatarsal amputation this afternoon --Dialysis tomorrow as regular MWF schedule, will give Epogen with dialysis. --Continue on Nephrocaps and PhosLo TIDM -- right arm nephrology precaution for AV fistula. Admission and Anticipated Discharge Date Admission Date: March 02, 2024 Rosa Maria Felix was seen and evaluated this am. Overall feeling fine and denies any concerns. BP fair. Hb slightly dropped. Review of Systems Review of Systems: Detailed review of system was done and pertinent and positives and negatives were mentioned above. Physical Exam Constitutional: WD/WN, vitals as above no acute distress Eyes: + anicteric sclerae Neck: normal visual inspection Respiratory: Auscultation: lungs clear to auscultation bilaterally Cardiovascular: Rate/Rhythm: regular rate and regular rhythm Heart Sounds: normal S1 and normal S2 Extremities: + AV fistula (RT BC AVF with thrill and bruit.) Skin: + turgor decreased, + lesion and + ulcer Neurologic: no focal motor deficits Psychiatric: Orientation: alert and oriented x 3 Affect: euthymic affect Results & Data Vital Signs (Past 12 Hours) Vital Signs Temp Pulse Resp BP Pulse Ox O2 Del Method O2 Flow Rate 03/05/24 08:18 36.7 C 99 H 16 132/57 L 98 Nasal Cannula 2 PG Care Time/CCT Total # of Minutes Spent Total Time Spent with Patient: Total time spent is greater than 50% in coordination of care (as documented) at patient's floor/unit and/or counseling patient: Coding Level of Care Code 19545 SUB INP/OBS CARE MIN Diagnoses ESRD on dialysis N18.6; Z99.2 Anemia D64.9 Anemia type: due to chronic kidney disease Acute osteomyelitis of right foot M86.171 End-stage renal disease on hemodialysis N18.6; Z99.2 Diabetic ulcer of right midfoot associated with type 2 diabetes mellitus, with fat layer exposed E11.621; L97.412 Diabetes mellitus type: type 2 Diabetic foot ulcer location: midfoot Laterality: right Non-pressure ulcer stage: with fat layer exposed Hypertension I10 (2) Anemia Anemia type: due to chronic kidney disease (5) Diabetic foot ulcer Diabetes mellitus type: type 2 Diabetic foot ulcer location: midfoot Laterality: right Non-pressure ulcer stage: with fat layer exposed Qualified Code(s): E11.621 - Type 2 diabetes mellitus with foot ulcer; L97.412 - Non- pressure chronic ulcer of right heel and midfoot with fat layer exposed
--- NOTE | 2024-03-05 11:40 | Hospitalist Progress Note ---
Date of Service March 05, 2024 Assessment & Plan (1) Acute osteomyelitis of right foot: Plan: Patient presented for worsening right foot cellulitis/ulcer on 03/02 Right foot MRI on 02/25/2024 revealed diffuse cellulitis and osteomyelitis Also with an underlying osteomyelitis, likely did not benefit from surgery by podiatry. Vascular surgery had determined that his blood flow would be adequate for wound healing, in case he gets debridement or amputation, However repeat vascular study has been ordered Continue Daptomycin and Zosyn Continue wound care for now Plan is for the OR later today (2) ESRD on dialysis: Plan: Patient on Saturday and Saturday sessions of hemodialysis Nephrology on consult (3) Diabetic nephropathy associated with type 2 diabetes mellitus: Plan: Last A1c at 7.4% on 01/17/2024 Glucose 210 on admission Lantus BID + SSI T2DM diet BSG ACHS Adjust regimen as needed Pharmacy glycemic management consult in the setting of ESRD (4) GAVE (gastric antral vascular ectasia): Plan: Continue to monitor No need for EGD or colonoscopy for now per GI (5) Chronic upper GI bleeding: Plan: Noted; Hgb 9.6 on arrival Patient does endorse occasional blood in his stool No signs of active bleeding on clinical exam Follow a.m. CBCs (6) Cellulitis of right foot: (7) Diabetic ulcer of right foot: (8) Heart failure: Plan Disposition: Continue Hospitalization DNR/DNI T2DM diet VTE PPx: Hold chemical DVT PPx given chronic GI bleed; hold mechanical DVT PPx in the setting of weeping legs / diabetic foot infection Admission and Anticipated Discharge Date Admission Date: March 02, 2024 Subjective Patient seen and examined, no new complaints, plan is for OR later today. Review of Systems Review of Systems: All systems reviewed are negative, apart from the ones contained in the history. Physical Exam Physical Exam: The patient is awake, alert and oriented 3, well developed and well nourished, normocephalic and atraumatic, lying in bed and in no acute distress. HEENT--PERRL, EOMI, mucous membranes and oropharynx mildly dry Neck--supple. No JVD. No bruits. Thyroid normal, trachea midline, no adenopathy. Heart--normal S1 and S2. No murmurs, rubs or gallops. Lungs--clear bilaterally, no respiratory distress, no accessory muscle use. Abdomen--normal bowel sounds and soft. Extremities--right foot wound Dermatologic--dry and erythematous. Neurologic--cranial nerves II through XII grossly intact. Rheumatologic--normal range of motion. Psychiatric--normal affect. Results & Data Results & Data Vital Signs (Past 12 Hours) Vital Signs Temp Pulse Resp BP Pulse Ox O2 Del Method O2 Flow Rate 03/05/24 08:18 98.1 F 99 H 16 132/57 L 98 Nasal Cannula 2 PG Care Time/CCT Total # of Minutes Spent Total Time Spent with Patient: Total time spent is greater than 50% in coordination of care (as documented) at patient's floor/unit and/or counseling patient: Coding Level of Care Code 42129 SUB INP/OBS CARE 2/35MIN Diagnoses Acute osteomyelitis of right foot M86.171 ESRD on dialysis N18.6; Z99.2 Diabetic nephropathy associated with type 2 diabetes mellitus E11.21 GAVE (gastric antral vascular ectasia) K31.819 Chronic upper GI bleeding K92.2 Cellulitis of right foot L03.115 Diabetic ulcer of right midfoot associated with type 2 diabetes mellitus, with bone involvement without evidence of necrosis E11.621; L97.416 Diabetic foot ulcer location: midfoot Diabetes mellitus type: type 2 Non-pressure ulcer stage: with bone involvement without evidence of necrosis Heart failure I50.9 Time Spent (min) 35 (7) Diabetic ulcer of right foot Diabetic foot ulcer location: midfoot Diabetes mellitus type: type 2 Non- pressure ulcer stage: with bone involvement without evidence of necrosis Qualified Code(s): E11.621 - Type 2 diabetes mellitus with foot ulcer; L97.416 - Non-pressure chronic ulcer of right heel and midfoot with bone involvement without evidence of necrosis
--- NOTE | 2024-03-05 13:09 | Pharmacy Report ---
Pharmacy Glycemic Short Note 2 - Date of Service March 05, 2024 - Glycemic Short BSG Results (Last 24 hours): 03/04/24 03/04/24 03/04/24 14:16 16:18 20:57 Glucose POC Glucose 84 99 82 03/05/24 03/05/24 03/05/24 00:08 05:47 05:59 Glucose 99 POC Glucose 110 H 101 H 03/05/24 12:05 Glucose POC Glucose 92 OUTPATIENT ANTIDIABETIC REGIMEN: * Novolog 70/30, 35 units SQ daily with breakfast, 20 units SQ with dinner * HbA1c: unreliable in the setting of HD ASSESSMENT: 03/05 * Pt is NPO for toe amputation in the OR later today. * BSGs have been below goal for the past ~24 hours. * Will hold Lantus for today and re-assess tomorrow. 03/03 * 88 year old admitted with diabetic foot ulcer, receiving IV antibiotics. Pharmacy consulted for glycemic management. Patient ESRD on HD - scheduled for MWF. Patient received total of 25 units of insulin yesterday, of which 20 units were basal insulin. * Fasting BSG 122 mg/dL - will continue with 20 units daily of basal insulin for now. May need to titrate up. Outpatient total insulin dose ~55 units, so may need closer to 25-30 units of basal. Plan to continue same novolog for now, based upon weight based stress of 2 dosing. PLAN FOR INPATIENT GLYCEMIC CONTROL: * Basal insulin * none today * Bolus insulin * NovoLog per scale ACHS or Q6hrs while NPO * Goal Range: Low 110 mg/dL - High 140 mg/dL * Correction Factor: 25 mg/dL/unit * Nutritional / Prandial insulin per carb ratio of 1 unit per 8 grams CHO consumed
--- NOTE | 2024-03-05 16:33 | History & Physical Bridge Note ---
Date of Service March 05, 2024 History & Physical Bridge Note I have examined the patient, reviewed the History & Physical and in the interval since the performance of the History & Physical I have noted the following changes of clinical significance: no changes noted. Plan for right fifth metatarsal head resection. All questions answered. Consent obtained.
[2024-03-05] MEDS ORDERED: ATROPINE SULFATE 0.1 MG/ML 10ML SYR IV PRN (16:38)
[2024-03-05] MEDS ORDERED: ONDANSETRON INJ 2 MG/ML 2 ML VIAL IV PRN (16:38)
[2024-03-05] MEDS ORDERED: fentaNYL citrate PF 100 MCG/2 ML VIAL IV PRN (16:38)
[2024-03-05] MEDS ORDERED: ePHEDrine sulfate 50 MG/ML AMP IV PRN (16:38)
--- NOTE | 2024-03-05 16:38 | Anesthesiology Consultation ---
Date of Service March 05, 2024 Assessment & Plan Chart Review Chart Review: Acceptable Risk for Surgery and Patient NOT seen in Pre Admission Testing Consults Requested none ASA ASA4 Proposed Anesthesia Anesthesia Type: MAC Risk / Benefits Reviewed With: PT / POA / Parent / Guardian, Accepts Plan and Informed Consent Obtained History Surgery Operation Date: 03/05/24 09:40 Proposed Procedures p Right 5th Metatarsal Head Section - Maximo Silva, DPM Height/Weight Height: 5 ft 9 in Weight: 84.2 kg Allergies Allergy/AdvReac Type Severity Reaction Status Date / Time clarithromycin AdvReac Intermediate confusion Verified 02/27/24 09:04 fish oil AdvReac Intermediate hx of Verified 02/27/24 09:04 hemorrhage in past Sulfa (Sulfonamide AdvReac Intermediate severe Verified 02/27/24 09:04 Antibiotics) agitation/delirium Medications Home Medications Medication Instructions Recorded Confirmed Last Taken vit B complx, C-iron 8 mg-folic 1 tab PO QAM 03/05/19 03/02/24 02/18/23 acid 800 mcg-D3 1,000 unit-zinc tablet (ProRenal) calcium acetate(phosphat bind) 667 2,001 mg PO TIDM 05/03/21 03/02/24 02/18/23 08:00 mg capsule docusate sodium 50 mg capsule 50 mg PO DAILY PRN Constipation 05/03/21 03/02/24 06/04/21 (Colace Clear) lorazepam 0.5 mg tablet 0.5 mg PO Q12H PRN anxiety #60 tabs 01/23/22 03/02/24 Unknown pravastatin 40 mg tablet 40 mg PO QPM #90 tabs 01/14/23 03/02/24 02/17/23 pen needle, diabetic 32 gauge x #200 ea 06/19/23 03/02/24 Unknown " (BD Ultra-Fine Tiffanie Pen Needle) metoprolol tartrate 50 mg tablet 50 mg PO BID #180 tabs 07/16/23 03/02/24 Unknown nitroglycerin 0.4 mg sublingual 0.4 mg sublingual Q5M PRN 09/25/23 03/02/24 Unknown tablet hypertensive emergency #25 tabs folic acid 1 mg tablet 1 mg PO QAM 12/02/23 03/02/24 Unknown insulin aspar prt-insulin aspart See Rx Instructions .Route 12/19/23 03/02/24 Unknown 100 unit/mL (70-30) subcutaneous .COMPLEX #50 mL soln (Novolog Mix 70-30 U-100 Insuln) amlodipine 5 mg tablet 5 mg PO 4XWK #90 tabs 12/23/23 03/02/24 Unknown collagenase clostridium histo. 250 1 applic EXT DAILY #30 grams 01/21/24 03/02/24 Unknown unit/gram topical ointment (Santyl) Active Medications Generic Name Dose Route Start Last Admin Trade Name Freq PRN Reason Stop Dose Admin Acetaminophen 650 mg 03/02/24 22:53 03/03/24 22:10 Acetaminophen 325 Mg Tab PO 04/01/24 22:52 650 mg Q4H PRN Administration pain/fever Amlodipine Besylate 5 mg 03/03/24 09:00 03/05/24 08:49 Amlodipine Besylate 5 Mg Tab PO 04/02/24 08:59 5 mg [id number] KASSANDRA Administration Calcium Acetate 2,001 mg 03/03/24 08:00 03/05/24 12:08 Calcium Acetate 667 Mg Cap/Tab PO 04/02/24 07:59 2,001 mg TIDM KASSANDRA Administration Collagenase 1 appln 03/03/24 09:00 03/05/24 08:50 Collagenase Oint 30 Gm Tube EXT 04/02/24 08:59 1 appln DAILY KASSANDRA Administration Folic Acid 1 mg 03/03/24 09:00 03/05/24 08:50 Folic Acid 1 Mg Tab PO 04/02/24 08:59 1 mg QAM KASSANDRA Administration Daptomycin 475 mg/ Syringe 9.5 mls @ 4.75 mls/min 03/04/24 17:00 03/04/24 17:20 IV 03/11/24 16:59 4.75 mls/min Q48H KASSANDRA Administration Protocol Piperacillin Sod/Tazobactam 100 mls @ 25 mls/hr 03/03/24 14:00 03/05/24 13:08 Sod 4.5 gm/ Dextrose IV 03/10/24 13:59 25 mls/hr Q12H KASSANDRA Administration Protocol Insulin Aspart 0 units 03/05/24 00:00 03/05/24 12:07 Insulin Aspart Per Unit Charge SC 04/04/24 00:00 Not Given Q6H KASSANDRA Metoprolol Tartrate 50 mg 03/02/24 22:53 03/05/24 08:50 Metoprolol Tartrate 50 Mg Tab PO 04/01/24 22:52 50 mg BID KASSANDRA Administration Ondansetron HCl 4 mg 03/04/24 02:42 03/04/24 03:03 Ondansetron Inj 2 Mg/Ml 2 Ml Vial IV 04/03/24 02:41 4 mg Q4H PRN Administration Nausea Pantoprazole Sodium 40 mg 03/04/24 10:45 03/05/24 08:50 Pantoprazole 40 Mg Tab PO 04/03/24 10:44 40 mg BID KASSANDRA Administration Vitamin B Complex/Folic Acid 1 cap 03/03/24 09:00 03/05/24 08:50 Nephrocaps PO 04/02/24 08:59 1 cap QAM KASSANDRA Administration NPO Date Last Intake of Fluids: 03/05/24 Time Last Intake of Fluids: 14:00 Last Intake of Fluids Comment: sips and chips Date Last Intake of Solids: 03/04/24 Time Last Intake of Solids: 23:59 Past Medical History Medical History Diabetic foot ulcer Venous stasis of both lower extremities Atrial fibrillation ESRD needing dialysis CAD (coronary artery disease) Hypertension Diabetic peripheral neuropathy associated with type 2 diabetes mellitus Elevated troponin Acute respiratory failure with hypoxia Weakness Hyperkalemia Pulmonary edema Acute respiratory failure Exertional dyspnea Chest pain AV fistula AV fistula Anxiety Breathlessness Right shoulder tendinitis Right shoulder pain T2DM (type 2 diabetes mellitus) Acute dyspnea Anemia COVID-19 COPD (chronic obstructive pulmonary disease) Dialysis AV fistula malfunction Emphysema lung suggested per CXR History of blood transfusion 2/2 GIB felt r/t radiation therapy s/p total of 6 units PRBC's since 10/2018 Arteriovenous fistula thrombosis Gout Osteoarthritis Hearing deficit LEFT Diabetic neuropathy Transient ischemic attack (TIA) (2014) 2014--no deficits, no neurologist 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 Hanna through Right AV fistula 08/17/19 S/P arteriovenous (AV) fistula creation right 05/[address] Hanna S/P dialysis catheter insertion Permcath + attempted thrombectomy: 04/2019: MAC sedation at [facility] History of esophagogastroduodenoscopy (EGD) + CAUTERIZATION (2/2 GIB) History of colonoscopy History of tooth extraction History of cataract surgery RIGHT/LEFT History of cardiac cath X3 = NO STENTS S/P arteriovenous (AV) fistula creation LEFT Right side recently ballooned and stented in [facility] Amputation of left little finger History of arthroscopy LEFT KNEE History of bowel resection BOWEL LACERATION DURING ATTEMPTING POLYPECTOMY H/O prostatectomy Past Anesthesia History No Hx of Anesthesia Complications and No Family Hx of Anesthesia Complications History of PONV No Hx of PONV and No Hx of Motion Sickness Social History Smoking Status: Never smoker Do You Dip or Chew Tobacco: No Hx Alcohol Use: No Hx Substance Use: No substance use type: does not use Physical Exam Vital Signs Last Vital Signs Temp 36.8 C 03/05/24 16:05 Pulse 95 H 03/05/24 16:05 Resp 22 03/05/24 16:05 BP 127/63 03/05/24 16:05 Pulse Ox 92 03/05/24 16:05 O2 Del Method Room Air 03/05/24 16:05 O2 Flow Rate 2 03/05/24 08:18 ENMT Mouth: + edentulous Thyromental Distance: > or= 3.5 Finger Breadths Mallampati Class: II Neck normal visual inspection Respiratory normal respiratory effort Auscultation: lungs clear to auscultation bilaterally Cardiovascular Rate/Rhythm: regular rate; + abnormal rhythm (afib on monitor) Psychiatric Orientation: alert Testing Laboratory Results 03/05/24 05:47 03/05/24 05:47 03/02/24 17:57 Aerobic Blood Culture - Preliminary Blood No growth in Aerobic bottle after 48 hours. Anaerobic Blood Culture - Final 03/02/24 16:11 Aerobic Blood Culture - Preliminary Blood No growth in Aerobic bottle after 48 hours. Anaerobic Blood Culture - Final 03/05/24 03/05/24 03/05/24 16:12 12:05 05:59 POC Glucose 109 H 92 101 H
[2024-03-05] MEDS ORDERED: fentaNYL citrate PF 100 MCG/2 ML VIAL ONE (16:46)
[2024-03-05] MEDS ORDERED: PROPOFOL IV EMULSION 10 MG/ML 20 ML VIAL IV ONE ×2 (16:47→16:50)
[2024-03-05] MEDS ORDERED: LIDOCAINE 2% 2 ML VIAL/AMP(20MG/ML) INFIL ONE (16:47)
[2024-03-05] MEDS ORDERED: PHENYLEPHRINE 100MCG/ML 10ML SYR IV ONE (17:14)
[2024-03-05] MEDS ORDERED: ONDANSETRON INJ 2 MG/ML 2 ML VIAL ONE (17:21)
[2024-03-05] MEDS: BUPIVACAINE 0.5 % 5 MG/1 ML MPF 30ML VIAL ONE (17:22)
--- NOTE | 2024-03-05 17:27 | Post Operative Brief Note ---
Immediate Post Op Note v1 Date of Surgery March 05, 2024 Pre & Post Diagnosis Operation Date: 03/05/24 09:40 Pre-Op Diagnosis: (1) Cellulitis of right foot: (2) Acute osteomyelitis of right foot: (3) Diabetic ulcer of right foot: Post-Op Diagnosis: (1) Cellulitis of right foot: (2) Acute osteomyelitis of right foot: (3) Diabetic ulcer of right foot: I identified the patient and participated in the time-out.: Yes Procedure Operation Date: 03/05/24 09:40 Actual Procedures p Right 5th Metatarsal Head Section(Right) - Maximo Silva DPM Surgeon Maximo Silva DPM Washtub Worker None Estimated Blood Loss 5 Findings Consistent with Post-Op Diagnosis Obvious clinical osteomyelitis with almost complete destruction of the metatarsal head. Remainder of wound healthy in appearance postoperatively. Wound is large, [id number]. Specimens Bone for pathology Bone for C&S Anesthesia Type MAC Complications none Disposition Accompanied Patient To Recovery: Yes Disposition: Recovery Room
--- NOTE | 2024-03-05 18:54 | Anesthesiology Progress Note ---
Date of Service March 05, 2024 Anesthesia Post Procedure Vital Signs Vital Signs: Temp Pulse Pulse Pulse Resp BP Pulse Ox 03/05/24 18:20 37.1 C 94 H 16 120/61 97 03/05/24 18:00 36.5 C 86 18 109/56 L 96 03/05/24 17:50 93 H 18 100/58 L 97 03/05/24 17:40 91 H 16 101/44 L 93 03/05/24 17:30 36.9 C 85 16 99/49 L 100 03/05/24 16:05 36.8 C 95 H 22 127/63 92 03/05/24 15:23 36.6 C 94 H 16 127/69 95 03/05/24 08:18 36.7 C 99 H 16 132/57 L 98 03/05/24 08:15 03/04/24 21:18 37.0 C 93 H 16 125/52 L 97 03/04/24 21:05 O2 Del Method O2 Flow Rate 03/05/24 18:20 Nasal Cannula 2 03/05/24 18:00 Room Air 03/05/24 17:50 Room Air 03/05/24 17:40 Room Air 03/05/24 17:30 Oxymask 2 03/05/24 16:05 Room Air 03/05/24 15:23 Room Air 03/05/24 08:18 Nasal Cannula 2 03/05/24 08:15 Room Air 03/04/24 21:18 Nasal Cannula 2.0 03/04/24 21:05 Nasal Cannula 2 Pain Intensity Lower Abdomen: Pain Intensity: 2 Transfer of Care Handoff Completed per policy Notes Mental Status: alert / awake / arousable Patient Amnestic to Procedure: Yes Nausea / Vomiting: adequately controlled Pain: adequately controlled Airway Patency, RR, SpO2: stable & adequate BP & HR: stable & adequate Hydration State: stable & adequate Anesthetic Complications: no major complications apparent
[2024-03-06 06:52] LABS: Hematocrit (blood only) 31.1 % (42.0-52.0); Hemoglobin 9.6 g/dl (14.0-18.0); Mean Corpuscular Hemoglobin 27.1 pg (25.0-34.0); Mean Corpuscular Hgb Conc 30.9 g/dL (32.0-36.0); Mean Corpuscular Volume 87.9 fL (80.0-100.0); Mean Platelet Volume 9.8 fL (9.4-12.4); Nucleated RBC # (auto) 0.02 K/uL (0.00-0.12); Nucleated RBC % (auto) 0.2 %; Platelet Count 188 K/uL (130-400); RDW Coefficient of Variation 17.2 % (11.5-14.5); RDW Standard Deviation 55.6 fL (36.4-46.3); Red Blood Count 3.54 M/uL (4.70-6.10)
[2024-03-06 07:25] LABS: BUN Creatinine Ratio 7.6 (10-20); Calcium 8.5 mg/dl (8.6-10.3); Creatinine Clr Calc Pharmacy 7.9 ml/min; Est GFR (African American) 8.3 ml/min; Est GFR (Non-African American) 7.2 ml/min; Potassium 4.8 mmol/L (3.5-5.1)
[2024-03-06] MEDS: LANTUS PER UNIT CHARGE SQ SCH (08:40)
--- NOTE | 2024-03-06 09:10 | Infectious Disease Progress Nt ---
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 He was seen at wound care on 01/27 at which time he had an excisional debridement and noted to have wound probe to bone, was planned for an MRI of foot given concerns for OM. WCX at that time with Pantoea agglomerans and MRSA. He also had another nonexcisional debridement on 02/19 wound care visit. On admission, was afebrile, vss. WBC wnl. ESR 94, CRP 12.3. MRI of R foot on 02/24 with osteomyelitis involving the head/neck of the fifth metatarsal and the base/proximal shaft of the fifth proximal phalanx; large plantar ulceration is seen at the level of the fifth metatarsophalangeal joint; diffuse cellulitis throughout the forefoot. Admission CXR with mild pulmonary vascular congestion and trace R pleural effusions. RLE doppler negative for DVT. He has been started on daptomycin and zosyn. ID consulted 03/03 for assistance. S/p right 5th MT head resection on 03/05. I spoke to podiatry and they dont think all the infected bone may have been removed and would feel more comfortable with a longer course of abx. Given concern for residual infected bone along with concern for poor blood supply, will treat with a 6 week course of IV antibiotics. Cultures are in process from admission. Will keep him on current regimen. Note prior cx with MRSA and Pantoea. Will also check for C diff given c/o diarrhea. # OM of right head/neck of the fifth MT and base/proximal shaft of the fifth proximal phalanx s/p MT head resection on 03/05 # RLE cellulitis # h/o T2DM # ESRD on HD MWF - continue on daptomycin 475mg IV q48h and zosyn 4.5g IV q12h (renally dosed) - f/u OR cx - final regimen pending cx - he will need 6 weeks of IV antibiotics starting from 03/05 (day of surgery), eot 04/16 - [place] ordered baseline CPK - no statins while on daptomycin - if cultures are negative, will need to consider empiric treatment with his current regimen ID will continue to follow. If questions or concerns, contact Infectious Disease Call Center . Kellie Page MD [facility], Division of Infectious Diseases [facility]: [phone] Admission and Anticipated Discharge Date Admission Date: March 02, 2024 Subjective Subsequent visit was provided via telemedicine using two-way real-time interactive telecommunication between the patient and the telemedicine provider. For the duration of the visit, the provider was performing the assessment from a different facility than the patient. This includesuse of blueGtxhoth stethosco pe forauscultationperformed by the telepresenter that the telemedicine provider can hear if described in the physical exam. [employer] contact information: Please call [facility] Call Center . (Phone Number For Physician Use Only) After establishing a telemedicine visit, patient was: Patient was verified with two unique identifiers, Patient/authorized rep acknowledged consent and understanding and Gave permission to continue telehealth session Time Spent with Patient: Subsequent => 55 min Patient reports doing well. He has had loose watery stools, multiple in the day since admission. No abdominal pain. Physical Exam Physical Exam: General: Awake, alert, no acute distress HEENT: NC/AT, EOMI, mmm Neck: supple Lungs: respirations non-labored Heart: nl peripheral perfusion Abdomen: soft, NT/ND Ext: RLE with postsurgical dressing Results & Data Vital Signs (Past 12 Hours) Vital Signs Temp Pulse Resp BP Pulse Ox O2 Del Method O2 Flow Rate 03/06/24 03:20 36.8 C 89 16 133/65 97 Nasal Cannula 2.0 03/05/24 23:00 36.7 C 99 H 18 126/59 L 99 Room Air Laboratory Results Labs reviewed. Diagnostic Findings Imaging reviewed.
--- NOTE | 2024-03-06 09:27 | Pharmacy Report ---
Pharmacy Glycemic Short Note 2 - Date of Service March 06, 2024 - Glycemic Short BSG Results (Last 24 hours): 03/05/24 03/05/24 03/05/24 12:05 16:12 17:44 Glucose POC Glucose 92 109 H 104 H 03/05/24 03/06/24 03/06/24 20:08 06:20 07:37 Glucose 177 H POC Glucose 86 171 H OUTPATIENT ANTIDIABETIC REGIMEN: * Novolog 70/30, 35 units SQ daily with breakfast, 20 units SQ with dinner * HbA1c: unreliable in the setting of HD ASSESSMENT: 03/06 * Patient did not receive any insulin yesterday, as NPO for procedure * Fasting BSG 171 mg/dL - will resume low dose basal this AM with 10 units 03/05 * Pt is NPO for toe amputation in the OR later today. * BSGs have been below goal for the past ~24 hours. * Will hold Lantus for today and re-assess tomorrow. 03/03 * 88 year old admitted with diabetic foot ulcer, receiving IV antibiotics. Pharmacy consulted for glycemic management. Patient ESRD on HD - scheduled for MWF. Patient received total of 25 units of insulin yesterday, of which 20 units were basal insulin. * Fasting BSG 122 mg/dL - will continue with 20 units daily of basal insulin for now. May need to titrate up. Outpatient total insulin dose ~55 units, so may need closer to 25-30 units of basal. Plan to continue same novolog for now, based upon weight based stress of 2 dosing. PLAN FOR INPATIENT GLYCEMIC CONTROL: * Basal insulin * Resume Lantus 10 units daily * Bolus insulin * NovoLog per scale ACHS or Q6hrs while NPO * Goal Range: Low 110 mg/dL - High 140 mg/dL * Correction Factor: 25 mg/dL/unit * Nutritional / Prandial insulin per carb ratio of 1 unit per 8 grams CHO consumed
--- NOTE | 2024-03-06 09:38 | Nephrology Progress Note ---
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 Had dialysis yesterday as regular schedule Saturday, Saturday, Saturday dialysis. Electrolyte, volume status, blood pressure reasonable. Hemoglobin low but relatively stable, chronic. Seen by podiatry and tentatively planning for fifth toe metatarsal head amputation on 03/05/24. Arteria Doppler of LE showed significant PVD. S/p right fifth toe metatarsal amputation on 03/05/2024. --Tolerating dialysis as regular MWF schedule, vital signs stable, Epogen [id number] with dialysis today. --Continue on Nephrocaps and PhosLo TIDM --right arm nephrology precaution for AV fistula. Admission and Anticipated Discharge Date Admission Date: March 02, 2024 Rosa Maria Felix was seen and evaluated during dialysis this am. Overall feeling fine and denies any concerns. Denies any significant pain at right foot amputation site. BP fair. Hb stable. Review of Systems Review of Systems: Detailed review of system was done and pertinent and positives and negatives were mentioned above. Physical Exam Constitutional: WD/WN, vitals as above no acute distress Eyes: + anicteric sclerae Neck: normal visual inspection Respiratory: Auscultation: lungs clear to auscultation bilaterally Cardiovascular: Rate/Rhythm: regular rate and regular rhythm Heart Sounds: normal S1 and normal S2 Extremities: + AV fistula (RT BC AVF with thrill and bruit.) Skin: + turgor decreased, + lesion and + ulcer Neurologic: no focal motor deficits Psychiatric: Orientation: alert and oriented x 3 Affect: euthymic affect Results & Data Vital Signs (Past 12 Hours) Vital Signs Temp Pulse Resp BP Pulse Ox O2 Del Method O2 Flow Rate 03/06/24 03:20 36.8 C 89 16 133/65 97 Nasal Cannula 2.0 03/05/24 23:00 36.7 C 99 H 18 126/59 L 99 Room Air PG Care Time/CCT Total # of Minutes Spent Total Time Spent with Patient: Total time spent is greater than 50% in coordination of care (as documented) at patient's floor/unit and/or counseling patient: Coding Level of Care Code 87397 SUB INP/OBS CARE 2/35MIN Diagnoses ESRD on dialysis N18.6; Z99.2 Anemia D64.9 Anemia type: due to chronic kidney disease Acute osteomyelitis of right foot M86.171 End-stage renal disease on hemodialysis N18.6; Z99.2 Diabetic ulcer of right midfoot associated with type 2 diabetes mellitus, with fat layer exposed E11.621; L97.412 Diabetes mellitus type: type 2 Diabetic foot ulcer location: midfoot Laterality: right Non-pressure ulcer stage: with fat layer exposed Hypertension I10 (2) Anemia Anemia type: due to chronic kidney disease (5) Diabetic foot ulcer Diabetes mellitus type: type 2 Diabetic foot ulcer location: midfoot Laterality: right Non-pressure ulcer stage: with fat layer exposed Qualified Code(s): E11.621 - Type 2 diabetes mellitus with foot ulcer; L97.412 - Non- pressure chronic ulcer of right heel and midfoot with fat layer exposed
--- NOTE | 2024-03-06 10:47 | Hospitalist Progress Note ---
Date of Service March 06, 2024 Assessment & Plan (1) Acute osteomyelitis of right foot: Plan: Patient presented for worsening right foot cellulitis/ulcer on 03/02 Right foot MRI on 02/25/2024 revealed diffuse cellulitis and osteomyelitis Also with an underlying osteomyelitis, He is now s/p amputation of 5th toe, sample sent to pathology Hopefully, clear margins were obtained Will look out for ID recs regarding type and duration of antibiotics Vascular surgery had determined that his blood flow would be adequate for wound healing Continue Daptomycin and Zosyn Continue wound care for now (2) ESRD on dialysis: Plan: Patient on Saturday and Saturday sessions of hemodialysis Nephrology on consult (3) Diabetic nephropathy associated with type 2 diabetes mellitus: Plan: Last A1c at 7.4% on 01/17/2024 Glucose 210 on admission Lantus BID + SSI T2DM diet BSG ACHS Adjust regimen as needed Pharmacy glycemic management consult in the setting of ESRD (4) GAVE (gastric antral vascular ectasia): Plan: Continue to monitor No need for EGD or colonoscopy for now per GI (5) Chronic upper GI bleeding: Plan: stable hb Patient does endorse occasional blood in his stool No signs of active bleeding on clinical exam Follow a.m. CBCs (6) Cellulitis of right foot: (7) Diabetic ulcer of right foot: (8) Heart failure: Plan Disposition: Continue Hospitalization, await full recs from ID DNR/DNI T2DM diet VTE PPx: Hold chemical DVT PPx given chronic GI bleed; hold mechanical DVT PPx in the setting of weeping legs / diabetic foot infection Admission and Anticipated Discharge Date Admission Date: March 02, 2024 Review of Systems Review of Systems: All systems reviewed are negative, apart from the ones contained in the history. Physical Exam Physical Exam: The patient is awake, alert and oriented 3, well developed and well nourished, normocephalic and atraumatic, lying in bed and in no acute distress. HEENT--PERRL, EOMI, mucous membranes and oropharynx mildly dry Neck--supple. No JVD. No bruits. Thyroid normal, trachea midline, no adenopathy. Heart--normal S1 and S2. No murmurs, rubs or gallops. Lungs--clear bilaterally, no respiratory distress, no accessory muscle use. Abdomen--normal bowel sounds and soft. Extremities--right foot wound Dermatologic--dry and erythematous. Neurologic--cranial nerves II through XII grossly intact. Rheumatologic--normal range of motion. Psychiatric--normal affect. Results & Data Results & Data Vital Signs (Past 12 Hours) Vital Signs Temp Pulse Pulse Pulse Resp BP BP 03/06/24 10:00 94 H 99/58 L 03/06/24 09:39 95 H 100/48 L 03/06/24 09:31 98.4 F 95 H 03/06/24 03:20 98.2 F 89 16 133/65 03/05/24 23:00 98.1 F 99 H 18 126/59 L Pulse Ox O2 Del Method O2 Flow Rate 03/06/24 10:00 03/06/24 09:39 03/06/24 09:31 03/06/24 03:20 97 Nasal Cannula 2.0 03/05/24 23:00 99 Room Air PG Care Time/CCT Total # of Minutes Spent Total Time Spent with Patient: Total time spent is greater than 50% in coordination of care (as documented) at patient's floor/unit and/or counseling patient: Coding Level of Care Code 37961 SUB INP/OBS CARE 2/35MIN Diagnoses Acute osteomyelitis of right foot M86.171 ESRD on dialysis N18.6; Z99.2 Diabetic nephropathy associated with type 2 diabetes mellitus E11.21 GAVE (gastric antral vascular ectasia) K31.819 Chronic upper GI bleeding K92.2 Cellulitis of right foot L03.115 Diabetic ulcer of right midfoot associated with type 2 diabetes mellitus, with bone involvement without evidence of necrosis E11.621; L97.416 Diabetic foot ulcer location: midfoot Diabetes mellitus type: type 2 Non-pressure ulcer stage: with bone involvement without evidence of necrosis Heart failure I50.9 Time Spent (min) 35 (7) Diabetic ulcer of right foot Diabetic foot ulcer location: midfoot Diabetes mellitus type: type 2 Non- pressure ulcer stage: with bone involvement without evidence of necrosis Qualified Code(s): E11.621 - Type 2 diabetes mellitus with foot ulcer; L97.416 - Non-pressure chronic ulcer of right heel and midfoot with bone involvement without evidence of necrosis
[2024-03-06] MEDS: EPOETIN ALFA 10,000 UNITS/ML VIAL IV STA (11:37)
[2024-03-07] MEDS: LOPERAMIDE HCL 2 MG CAP PO PRN (01:03)
[2024-03-07] MEDS: MENTHOL-ZINC OXIDE 360 APPLN/120 GM TUBE EXT SCH (01:04)
[2024-03-07] MEDS: BUTT PASTE (ZINC OXIDE 16%) 171 APPLN/57 GM JAR EXT SCH (01:04)
[2024-03-07 06:30] LABS: BUN Creatinine Ratio 7.3 (10-20); Calcium 8.2 mg/dl (8.6-10.3); Creatinine Clr Calc Pharmacy 11.4 ml/min; Est GFR (African American) 12.8 ml/min; Est GFR (Non-African American) 11.1 ml/min; Potassium 3.8 mmol/L (3.5-5.1)
--- NOTE | 2024-03-07 11:02 | Nephrology Progress Note ---
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 Had dialysis yesterday as regular schedule Saturday, Saturday, Saturday dialysis. Electrolyte, volume status, blood pressure reasonable. Hemoglobin low but relatively stable, chronic. Seen by podiatry and tentatively planning for fifth toe metatarsal head amputation on 03/05/24. Arteria Doppler of LE showed significant PVD. S/p right fifth toe metatarsal amputation on 03/05/2024. On daptomycin 475mg IV q48h and zosyn 4.5g IV q12h pending final culture from OR , plan for total 6 weeks of IV antibiotics starting from 03/05 (day of surgery), until 04/16 Had dialysis Saturday as regular MWF schedule, vital signs stable, Epogen [id number] was given with dialysis. --Volume status, electrolyte, blood pressure stable, plan for next dialysis Saturday. --Continue on Nephrocaps and PhosLo TIDM --right arm nephrology precaution for AV fistula. --Getting occupational therapy evaluation and management --Waiting on discharge to [facility], no bed available yet, update on Saturday about bed availability Admission and Anticipated Discharge Date Admission Date: March 02, 2024 Rosa Maria Felix was seen and evaluated this am. Denies any specific symptoms but discouraged that he has not been able to get out of the bed and move around over last few days. Physical therapy evaluation prior to toe amputations suggested high risk for fall. BP fair. Hb stable. Review of Systems Review of Systems: Detailed review of system was done and pertinent and positives and negatives were mentioned above. Physical Exam Constitutional: WD/WN, vitals as above no acute distress Eyes: + anicteric sclerae Neck: normal visual inspection Respiratory: Auscultation: lungs clear to auscultation bilaterally Cardiovascular: Rate/Rhythm: regular rate and regular rhythm Heart Sounds: normal S1 and normal S2 Extremities: + AV fistula (RT BC AVF with thrill and bruit.) Skin: + turgor decreased, + lesion and + ulcer Neurologic: no focal motor deficits Psychiatric: Orientation: alert and oriented x 3 Affect: euthymic affect Results & Data Vital Signs (Past 12 Hours) Vital Signs Temp Pulse Resp BP Pulse Ox O2 Del Method O2 Flow Rate 03/07/24 07:55 36.8 C 84 16 130/49 L 98 Nasal Cannula 2 PG Care Time/CCT Total # of Minutes Spent Total Time Spent with Patient: Total time spent is greater than 50% in coordination of care (as documented) at patient's floor/unit and/or counseling patient: Coding Level of Care Code 38302 SUB INP/OBS CARE 2/35MIN Diagnoses ESRD on dialysis N18.6; Z99.2 Anemia D64.9 Anemia type: due to chronic kidney disease Acute osteomyelitis of right foot M86.171 End-stage renal disease on hemodialysis N18.6; Z99.2 Diabetic ulcer of right midfoot associated with type 2 diabetes mellitus, with fat layer exposed E11.621; L97.412 Diabetes mellitus type: type 2 Diabetic foot ulcer location: midfoot Laterality: right Non-pressure ulcer stage: with fat layer exposed Hypertension I10 (2) Anemia Anemia type: due to chronic kidney disease (5) Diabetic foot ulcer Diabetes mellitus type: type 2 Diabetic foot ulcer location: midfoot Laterality: right Non-pressure ulcer stage: with fat layer exposed Qualified Code(s): E11.621 - Type 2 diabetes mellitus with foot ulcer; L97.412 - Non-pressure chronic ulcer of right heel and midfoot with fat layer exposed
--- NOTE | 2024-03-07 16:45 | Hospitalist Progress Note ---
Date of Service March 07, 2024 Assessment & Plan (1) Acute osteomyelitis of right foot: Plan: Patient presented for worsening right foot cellulitis/ulcer on 03/02 Right foot MRI on 02/25/2024 revealed diffuse cellulitis and osteomyelitis Also with an underlying osteomyelitis, He is now s/p amputation of 5th toe head, sample sent to pathology Hopefully, clear margins were obtained Will look out for ID recs regarding type and duration of antibiotics Vascular surgery had determined that his blood flow would be adequate for wound healing Continue Daptomycin and Zosyn Continue wound care for now (2) ESRD on dialysis: Plan: Patient on Saturday and Saturday sessions of hemodialysis Nephrology on consult (3) Diabetic nephropathy associated with type 2 diabetes mellitus: Plan: Last A1c at 7.4% on 01/17/2024 Glucose 210 on admission Lantus BID + SSI T2DM diet BSG ACHS Adjust regimen as needed Pharmacy glycemic management consult in the setting of ESRD (4) GAVE (gastric antral vascular ectasia): Plan: Continue to monitor No need for EGD or colonoscopy for now per GI (5) Chronic upper GI bleeding: Plan: stable hb Patient does endorse occasional blood in his stool No signs of active bleeding on clinical exam Follow a.m. CBCs (6) Cellulitis of right foot: (7) Diabetic ulcer of right foot: (8) Heart failure: Plan Disposition: Continue Hospitalization, await full recs from ID DNR/DNI T2DM diet VTE PPx: Hold chemical DVT PPx given chronic GI bleed; hold mechanical DVT PPx in the setting of weeping legs / diabetic foot infection Admission and Anticipated Discharge Date Admission Date: March 02, 2024 Subjective Patient feels well. Denies chest pain or shortness of breath Review of Systems Review of Systems: All systems reviewed & are unremarkable except as noted in Subjective Physical Exam Physical Exam: General: Awake, conversant Heart: S1, S2/regular rate and rhythm, no murmur rubs or gallops Lungs: Clear to auscultation bilaterally. Normal effort Abdomen: Soft/nontender/nondistended. No hepatosplenomegaly Extremities: No clubbing/cyanosis. Left foot dressing on Behavior: Appropriate, cooperative Results & Data Results & Data Vital Signs (Past 12 Hours) Vital Signs Temp Pulse Resp BP Pulse Ox O2 Del Method O2 Flow Rate 03/07/24 16:25 36.8 C 80 16 105/39 L 94 Room Air 03/07/24 08:00 Room Air 03/07/24 07:55 36.8 C 84 16 130/49 L 98 Nasal Cannula 2 Laboratory Results Abnormal lab results 03/06/24 03/07/24 03/07/24 Range/Units 20:11 05:36 07:33 BUN 32 H (6-23) mg/dl Creatinine 4.40 H D (0.6-1.4) mg/dl BUN/Creatinine Ratio 7.3 L (10-20) Glucose 134 H (70-99(Fasting)) mg/dl POC Glucose 144 H 131 H (70-99) mg/dl Calcium 8.2 L (8.6-10.3) mg/dl Total Creatine Kinase 15 L (30-223) U/L 03/07/24 03/07/24 Range/Units 11:24 16:22 BUN (6-23) mg/dl Creatinine (0.6-1.4) mg/dl BUN/Creatinine Ratio (10-20) Glucose (70-99(Fasting)) mg/dl POC Glucose 222 H 240 H (70-99) mg/dl Calcium (8.6-10.3) mg/dl Total Creatine Kinase (30-223) U/L PG Care Time/CCT Total # of Minutes Spent Total Time Spent with Patient: Total time spent is greater than 50% in coordination of care (as documented) at patient's floor/unit and/or counseling patient: Coding Level of Care Code 01161 SUB INP/OBS CARE 2/35MIN Diagnoses Acute osteomyelitis of right foot M86.171 ESRD on dialysis N18.6; Z99.2 Diabetic nephropathy associated with type 2 diabetes mellitus E11.21 GAVE (gastric antral vascular ectasia) K31.819 Chronic upper GI bleeding K92.2 Cellulitis of right foot L03.115 Diabetic ulcer of right midfoot associated with type 2 diabetes mellitus, with bone involvement without evidence of necrosis E11.621; L97.416 Diabetic foot ulcer location: midfoot Diabetes mellitus type: type 2 Non-pressure ulcer stage: with bone involvement without evidence of necrosis Heart failure I50.9 (7) Diabetic ulcer of right foot Diabetic foot ulcer location: midfoot Diabetes mellitus type: type 2 Non- pressure ulcer stage: with bone involvement without evidence of necrosis Qualified Code(s): E11.621 - Type 2 diabetes mellitus with foot ulcer; L97.416 - Non-pressure chronic ulcer of right heel and midfoot with bone involvement without evidence of necrosis
--- NOTE | 2024-03-08 10:14 | Nephrology Progress Note ---
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 Had dialysis yesterday as regular schedule Saturday, Saturday, Saturday dialysis. Electrolyte, volume status, blood pressure reasonable. Hemoglobin low but relatively stable, chronic. Seen by podiatry and tentatively planning for fifth toe metatarsal head amputation on 03/05/24. Arteria Doppler of LE showed significant PVD. S/p right fifth toe metatarsal amputation on 03/05/2024. On daptomycin 475mg IV q48h and zosyn 4.5g IV q12h pending final culture from OR , plan for total 6 weeks of IV antibiotics starting from 03/05 (day of surgery), until 04/16 Had dialysis Saturday as regular F schedule, vital signs stable, Epogen [id number] was given with dialysis. Overall clinically stable. --dialysis Saturday, order in EMR. --Continue on Nephrocaps and PhosLo TIDM --right arm nephrology precaution for AV fistula. --Waiting on discharge to [facility], no bed available yet, update on Saturday about bed availability Admission and Anticipated Discharge Date Admission Date: March 02, 2024 Rosa Maria Felix was seen and evaluated this am. Denies any specific symptoms. BP fair. Hb stable. Review of Systems Review of Systems: Detailed review of system was done and pertinent and positives and negatives were mentioned above. Physical Exam Constitutional: WD/WN, vitals as above no acute distress Eyes: + anicteric sclerae Neck: normal visual inspection Respiratory: Auscultation: lungs clear to auscultation bilaterally Cardiovascular: Rate/Rhythm: regular rate and regular rhythm Heart Sounds: normal S1 and normal S2 Extremities: + AV fistula (RT BC AVF with thrill and bruit.) Skin: + turgor decreased, + lesion and + ulcer Neurologic: no focal motor deficits Psychiatric: Orientation: alert and oriented x 3 Affect: euthymic affect Results & Data Vital Signs (Past 12 Hours) Vital Signs Temp Pulse Resp BP Pulse Ox O2 Del Method 03/08/24 07:25 36.9 C 88 16 121/64 95 Room Air PG Care Time/CCT Total # of Minutes Spent Total Time Spent with Patient: Total time spent is greater than 50% in coordination of care (as documented) at patient's floor/unit and/or counseling patient: Coding Level of Care Code 41434 SUB INP/OBS CARE 2/35MIN Diagnoses ESRD on dialysis N18.6; Z99.2 Anemia D64.9 Anemia type: due to chronic kidney disease Acute osteomyelitis of right foot M86.171 End-stage renal disease on hemodialysis N18.6; Z99.2 Diabetic ulcer of right midfoot associated with type 2 diabetes mellitus, with fat layer exposed E11.621; L97.412 Diabetes mellitus type: type 2 Diabetic foot ulcer location: midfoot Laterality: right Non-pressure ulcer stage: with fat layer exposed Hypertension I10 (2) Anemia Anemia type: due to chronic kidney disease (5) Diabetic foot ulcer Diabetes mellitus type: type 2 Diabetic foot ulcer location: midfoot Laterality: right Non-pressure ulcer stage: with fat layer exposed Qualified Code(s): E11.621 - Type 2 diabetes mellitus with foot ulcer; L97.412 - Non- pressure chronic ulcer of right heel and midfoot with fat layer exposed
--- NOTE | 2024-03-08 15:59 | Hospitalist Progress Note ---
Date of Service March 08, 2024 Assessment & Plan (1) Acute osteomyelitis of right foot: Plan: Patient presented for worsening right foot cellulitis/ulcer on 03/02 Right foot MRI on 02/25/2024 revealed diffuse cellulitis and osteomyelitis Also with an underlying osteomyelitis, He is now s/p amputation of 5th toe head, sample sent to pathology Hopefully, clear margins were obtained Will look out for ID recs regarding type and duration of antibiotics Vascular surgery had determined that his blood flow would be adequate for wound healing Continue Daptomycin and Zosyn Continue wound care for now (2) ESRD on dialysis: Plan: Patient on Saturday and Saturday sessions of hemodialysis Nephrology on consult (3) Diabetic nephropathy associated with type 2 diabetes mellitus: Plan: Last A1c at 7.4% on 01/17/2024 Glucose 210 on admission Lantus BID + SSI T2DM diet BSG ACHS Adjust regimen as needed Pharmacy glycemic management consult in the setting of ESRD (4) GAVE (gastric antral vascular ectasia): Plan: Continue to monitor No need for EGD or colonoscopy for now per GI (5) Chronic upper GI bleeding: Plan: stable hb Patient does endorse occasional blood in his stool No signs of active bleeding on clinical exam Follow a.m. CBCs (6) Cellulitis of right foot: (7) Diabetic ulcer of right foot: (8) Heart failure: Plan Disposition: Continue Hospitalization, await full recs from ID DNR/DNI T2DM diet VTE PPx: Hold chemical DVT PPx given chronic GI bleed; hold mechanical DVT PPx in the setting of weeping legs / diabetic foot infection Admission and Anticipated Discharge Date Admission Date: March 02, 2024 Subjective Patient well. Denies chest pain or shortness of Review of Systems Review of Systems: All systems reviewed & are unremarkable except as noted in Subjective Physical Exam Physical Exam: General: Awake, conversant Heart: S1, S2/regular rate and rhythm, no murmur rubs or gallops Lungs: Clear to auscultation bilaterally. Normal effort Abdomen: Soft/nontender/nondistended. No hepatosplenomegaly Extremities: No clubbing/cyanosis. Left foot dressing on Behavior: Appropriate, cooperative Results & Data Results & Data Vital Signs (Past 12 Hours) Vital Signs Temp Pulse Resp BP Pulse Ox O2 Del Method 03/08/24 15:10 36.6 C 81 16 110/52 L 94 Room Air 03/08/24 07:25 36.9 C 88 16 121/64 95 Room Air Laboratory Results Abnormal lab results 03/07/24 03/07/24 03/08/24 Range/Units 16:22 20:48 07:14 POC Glucose 240 H 135 H 140 H (70-99) mg/dl 03/08/24 Range/Units 11:21 POC Glucose 216 H (70-99) mg/dl PG Care Time/CCT Total # of Minutes Spent Total Time Spent with Patient: Total time spent is greater than 50% in coordination of care (as documented) at patient's floor/unit and/or counseling patient: Coding Level of Care Code 67190 SUB INP/OBS CARE 2MIN Diagnoses Acute osteomyelitis of right foot M86.171 ESRD on dialysis N18.6; Z99.2 Diabetic nephropathy associated with type 2 diabetes mellitus E11.21 GAVE (gastric antral vascular ectasia) K31.819 Chronic upper GI bleeding K92.2 Cellulitis of right foot L03.115 Diabetic ulcer of right midfoot associated with type 2 diabetes mellitus, with bone involvement without evidence of necrosis E11.621; L97.416 Diabetic foot ulcer location: midfoot Diabetes mellitus type: type 2 Non-pressure ulcer stage: with bone involvement without evidence of necrosis Heart failure I50.9 (7) Diabetic ulcer of right foot Diabetic foot ulcer location: midfoot Diabetes mellitus type: type 2 Non- pressure ulcer stage: with bone involvement without evidence of necrosis Qualified Code(s): E11.621 - Type 2 diabetes mellitus with foot ulcer; L97.416 - Non-pressure chronic ulcer of right heel and midfoot with bone involvement without evidence of necrosis
[2024-03-09 06:13] LABS: Hemoglobin 9.4 g/dl (14.0-18.0); Mean Corpuscular Hgb Conc 31.3 g/dL (32.0-36.0); Mean Corpuscular Volume 86.2 fL (80.0-100.0); Mean Platelet Volume 9.9 fL (9.4-12.4); Platelet Count 181 K/uL (130-400); RDW Coefficient of Variation 17.7 % (11.5-14.5); RDW Standard Deviation 54.6 fL (36.4-46.3); Red Blood Count 3.48 M/uL (4.70-6.10); White Blood Count 8.36 K/ul (4.8-10.8)
[2024-03-09] MEDS: BUTT PASTE (ZINC OXIDE 16%) 171 APPLN/57 GM JAR EXT PRN (08:40)
[2024-03-09] MEDS: LANTUS PER UNIT CHARGE SQ SCH (08:48)
--- NOTE | 2024-03-09 08:54 | Nephrology Progress Note ---
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 Had dialysis yesterday as regular schedule Saturday, Saturday, Saturday dialysis. Electrolyte, volume status, blood pressure reasonable. Hemoglobin low but relatively stable, chronic. Seen by podiatry and tentatively planning for fifth toe metatarsal head amputation on 03/05/24. Arteria Doppler of LE showed significant PVD. S/p right fifth toe metatarsal amputation on 03/05/2024. On daptomycin 475mg IV q48h and zosyn 4.5g IV q12h pending final culture from OR , plan for total 6 weeks of IV antibiotics starting from 03/05 (day of surgery), until 04/16 Overall clinically stable -- Will provide HD today. Orders are active in EMR and HD RN notified -- Continue on Nephrocaps and PhosLo TIDM -- R arm nephrology precaution for AV fistula. -- Waiting on discharge to [facility], awaiting update about bed availability Admission and Anticipated Discharge Date Admission Date: March 02, 2024 Subjective Mr. Madden was evaluated in his hospital room this morning. He denied fever, overt blood loss or R foot discomfort. He reports that he is awaiting placement at [facility] for PT. He states that if he likes it, he will consider moving there permanently. Review of Systems Constitutional: no fever Eyes: no worsening vision Ear, Nose, Mouth, Throat: no problem reported Respiratory: no cough and no dyspnea Cardiovascular: no chest pain Gastrointestinal: no abdominal pain, no nausea, no vomiting and no diarrhea/loose stools Physical Exam Constitutional: WD/WN, vitals as above Eyes: PERRL, conjunctivae normal, anicteric sclerae ENMT: external ear and nose normal, oropharynx normal Neck: trachea midline, no thyromegaly Respiratory: normal respiratory effort, lungs clear to auscultation Cardiovascular: RRR, no murmur, no edema Gastrointestinal (Abdomen): normal bowel sounds, soft, nontender, no hepatosplenomegaly Skin: no rashes, warm and dry Neurologic: Speech / Cognition: normal speech and normal cognition Psychiatric: Affect: euthymic affect Results & Data Vital Signs (Past 12 Hours) Vital Signs Temp Pulse Resp BP Pulse Ox O2 Del Method 03/09/24 07:06 36.8 C 89 16 137/53 L 94 Room Air Laboratory Results Laboratory Results - last 24 hr 03/08/24 03/08/24 03/08/24 11:21 16:15 20:28 WBC RBC Hgb Hct MCV MCH MCHC RDW Std Deviation RDW Coeff of Casandra Plt Count MPV POC Glucose 216 H 201 H 198 H 03/09/24 03/09/24 05:42 07:35 WBC 8.36 RBC 3.48 L Hgb 9.4 L Hct 30.0 L MCV 86.2 MCH 27.0 MCHC 31.3 L RDW Std Deviation 54.6 H RDW Coeff of Casandra 17.7 H Plt Count 181 MPV 9.9 POC Glucose 154 H PG Care Time/CCT Total # of Minutes Spent Total Time Spent with Patient: Total time spent is greater than 50% in coordination of care (as documented) at patient's floor/unit and/or counseling patient: Coding Level of Care Code 33781 SUB INP/OBS CARE 3/50MIN Diagnoses ESRD on dialysis N18.6; Z99.2 Acute osteomyelitis of right foot M86.171 Anemia D64.9 Anemia type: due to chronic kidney disease (3) Anemia Anemia type: due to chronic kidney disease
--- NOTE | 2024-03-09 08:58 | Podiatry Progress Note ---
Date of Service March 09, 2024 Assessment & Plan (1) Cellulitis of right foot: (2) Acute osteomyelitis of right foot: (3) Diabetic ulcer of right foot: (4) Peripheral arterial disease: Plan Patient examined and evaluated. Discussed treatment moving forward, including wound care to maintain this wound. The foot overall still seems quite avascular. He may benefit from a wound VAC and a order for wound care by nursing was placed. If they can see him before discharge that would be ideal, however, if he is discharged to [facility] before then, they can continue with wound care as well. Given his advanced age and vascular status, it is difficult seeing this large of a wound heal, but we should plan on keeping it clean and minimizing the risk of further infection. This was discussed with him at length. We will see him outpatient as needed and can be reconsulted if he returns to the hospital. Will continue to follow as long as he remains inpatient as well. Admission and Anticipated Discharge Date Admission Date: March 02, 2024 Subjective Patient seen at bedside prior to dialysis. No new concerns. He states his foot feels great. He is concerned what his discharge plan will be and if he will be discharged home versus to rehab. Denies any new signs of infection. Review of Systems Constitutional: no fever, no chills and no fatigue Eyes: no problem reported Ear, Nose, Mouth, Throat: no problem reported Respiratory: no problem reported Cardiovascular: + edema; no problem reported Gastrointestinal: no nausea, no vomiting and no problem reported Musculoskeletal: no problem reported Integumentary: + skin ulcer, + wounds and + erythema Neurologic: + loss of sensation, + numbness and + pa resthesia; no generalized weakness Psychiatric: no problem reported Physical Exam Physical Exam: Surgical dressing intact. This was changed yesterday by nursing and by the other Dr. Silva. No bleeding or strikethrough to the dressing. No ascending cellulitis or ecchymosis to the toes. Constitutional: WD/WN, vitals as above well developed and + ill appearing; no acute distress Eyes: PERRL, conjunctivae normal, anicteric sclerae ENMT: external ear and nose normal, oropharynx normal Neck: trachea midline, no thyromegaly normal visual inspection Respiratory: normal respiratory effort; no respiratory distress Cardiovascular: Rate/Rhythm: regular rate and regular rhythm Chest (Breasts): Chest: normal inspection of chest Gastrointestinal (Abdomen): Inspection/Auscultation: abdomen normal to inspection Percussion/Palpation: + abdomen tender and abdomen soft Musculoskeletal: no cyanosis or clubbing, extremities motor strength 5/5 Head/Neck/Chest: normocephalic and head atraumatic Extremities: extremities normal to inspection and + limited ROM of extremities Skin: + ulcer, + wound, + skin atrophy and + d ry skin Neurologic: awake; no focal motor deficits Psychiatric: A+Ox3, euthymic affect Results & Data Results & Data Vital Signs (Past 12 Hours) Vital Signs Temp Pulse Resp BP Pulse Ox O2 Del Method 03/09/24 07:06 36.8 C 89 16 137/53 L 94 Room Air (3) Diabetic ulcer of right foot Diabetic foot ulcer location: midfoot Diabetes mellitus type: type 2 Non- pressure ulcer stage: with bone involvement without evidence of necrosis Qualified Code(s): E11.621 - Type 2 diabetes mellitus with foot ulcer; L97.416 - Non-pressure chronic ulcer of right heel and midfoot with bone involvement without evidence of necrosis
--- NOTE | 2024-03-09 13:57 | Hospitalist Progress Note ---
Date of Service March 09, 2024 Assessment & Plan (1) Acute osteomyelitis of right foot: Plan: Patient presented for worsening right foot cellulitis/ulcer on 03/02 Right foot MRI on 02/25/2024 revealed diffuse cellulitis and osteomyelitis Also with an underlying osteomyelitis, 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, sample sent to pathology Will look out for ID recs regarding type and duration of antibiotics Vascular surgery had determined that his blood flow would be adequate for wound healing Continue Daptomycin and Zosyn. Awaiting final ID recommendations for discharge Continue wound care for now (2) ESRD on dialysis: Plan: Patient on Saturday and Saturday sessions of hemodialysis Nephrology on consult (3) Diabetic nephropathy associated with type 2 diabetes mellitus: Plan: Last A1c at 7.4% on 01/17/2024 Glucose 210 on admission Lantus BID + SSI T2DM diet BSG ACHS Adjust regimen as needed Pharmacy glycemic management consult in the setting of ESRD (4) GAVE (gastric antral vascular ectasia): Plan: Continue to monitor No need for EGD or colonoscopy for now per GI (5) Chronic upper GI bleeding: Plan: stable hb Patient does endorse occasional blood in his stool No signs of active bleeding on clinical exam Follow a.m. CBCs (6) Cellulitis of right foot: (7) Diabetic ulcer of right foot: (8) Heart failure: Plan Disposition: Continue Hospitalization, await full recs from ID DNR/DNI T2DM diet VTE PPx: Hold chemical DVT PPx given chronic GI bleed; hold mechanical DVT PPx in the setting of weeping legs / diabetic foot infection Admission and Anticipated Discharge Date Admission Date: March 02, 2024 Subjective Patient feels well. Denies chest pain or shortness of breath Review of Systems Review of Systems: All systems reviewed & are unremarkable except as noted in Subjective Physical Exam Physical Exam: General: Awake, conversant Heart: S1, S2/regular rate and rhythm, no murmur rubs or gallops Lungs: Clear to auscultation bilaterally. Normal effort Abdomen: Soft/nontender/nondistended. No hepatosplenomegaly Extremities: No clubbing/cyanosis. Right foot dressing on Behavior: Appropriate, cooperative Results & Data Results & Data Vital Signs (Past 12 Hours) Vital Signs Temp Pulse Pulse Pulse Resp BP BP 03/09/24 12:30 70 148/58 H 03/09/24 12:00 79 115/54 L 03/09/24 11:30 81 128/72 03/09/24 11:00 70 113/68 03/09/24 10:30 74 108/62 03/09/24 10:00 79 109/62 03/09/24 09:30 81 145/69 H 03/09/24 09:15 36.5 C 79 03/09/24 08:00 03/09/24 07:06 36.8 C 89 16 137/53 L Pulse Ox O2 Del Method 03/09/24 12:30 03/09/24 12:00 03/09/24 11:30 03/09/24 11:00 03/09/24 10:30 03/09/24 10:00 03/09/24 09:30 03/09/24 09:15 03/09/24 08:00 Room Air 03/09/24 07:06 94 Room Air Laboratory Results Abnormal lab results 03/08/24 03/08/24 03/09/24 Range/Units 16:15 20:28 05:42 RBC 3.48 L (4.70-6.10) M/uL Hgb 9.4 L (14.0-18.0) g/dl Hct 30.0 L (42.0-52.0) % MCHC 31.3 L (32.0-36.0) g/dL RDW Std Deviation 54.6 H (36.4-46.3) fL RDW Coeff of Casandra 17.7 H (11.5-14.5) % POC Glucose 201 H 198 H (70-99) mg/dl 03/09/24 03/09/24 Range/Units 07:35 13:41 RBC (4.70-6.10) M/uL Hgb (14.0-18.0) g/dl Hct (42.0-52.0) % MCHC (32.0-36.0) g/dL RDW Std Deviation (36.4-46.3) fL RDW Coeff of Casandra (11.5-14.5) % POC Glucose 154 H 129 H (70-99) mg/dl PG Care Time/CCT Total # of Minutes Spent Total Time Spent with Patient: Total time spent is greater than 50% in coordination of care (as documented) at patient's floor/unit and/or counseling patient: Coding Level of Care Code 88494 SUB INP/OBS CARE Diagnoses Acute osteomyelitis of right foot M86.171 ESRD on dialysis N18.6; Z99.2 Diabetic nephropathy associated with type 2 diabetes mellitus E11.21 GAVE (gastric antral vascular ectasia) K31.819 Chronic upper GI bleeding K92.2 Cellulitis of right foot L03.115 Diabetic ulcer of right midfoot associated with type 2 diabetes mellitus, with bone involvement without evidence of necrosis E11.621; L97.416 Diabetic foot ulcer location: midfoot Diabetes mellitus type: type 2 Non-pressure ulcer stage: with bone involvement without evidence of necrosis Heart failure I50.9 (7) Diabetic ulcer of right foot Diabetic foot ulcer location: midfoot Diabetes mellitus type: type 2 Non- pressure ulcer stage: with bone involvement without evidence of necrosis Qualified Code(s): E11.621 - Type 2 diabetes mellitus with foot ulcer; L97.416 - Non-pressure chronic ulcer of right heel and midfoot with bone involvement without evidence of necrosis
--- NOTE | 2024-03-09 14:16 | Pharmacy Report ---
Pharmacy Glycemic Short Note 2 - Date of Service March 09, 2024 - Glycemic Short BSG Results (Last 24 hours): 03/08/24 03/08/24 03/09/24 16:15 20:28 07:35 POC Glucose 201 H 198 H 154 H 03/09/24 13:41 POC Glucose 129 H OUTPATIENT ANTIDIABETIC REGIMEN: * Novolog 70/30, 35 units SQ daily with breakfast, 20 units SQ with dinner * HbA1c: unreliable in the setting of HD ASSESSMENT: 03/09 * Patient received total 51 units of insulin yesterday; 10 units basal and 41 units bolus. * BSGs yesterday were [id number] mg/dl. Fasting BSG today = 154 mg/dl. * Fasting BSGs have been trending slowly last couple of days. So, basal insulin dose increased to 15 units daily today AM. * Since post prandial BSGs were also elevated yesterday, Novolog carb ratio was tightened slightly in the morning. Continued the same today. * He is receiving dialysis today. 03/06 * Patient did not receive any insulin yesterday, as NPO for procedure * Fasting BSG 171 mg/dL - will resume low dose basal this AM with 10 units 03/05 * Pt is NPO for toe amputation in the OR later today. * BSGs have been below goal for the past ~24 hours. * Will hold Lantus for today and re-assess tomorrow. 03/03 * 88 year old admitted with diabetic foot ulcer, receiving IV antibiotics. Pharmacy consulted for glycemic management. Patient ESRD on HD - scheduled for MWF. Patient received total of 25 units of insulin yesterday, of which 20 units were basal insulin. * Fasting BSG 122 mg/dL - will continue with 20 units daily of basal insulin for now. May need to titrate up. Outpatient total insulin dose ~55 units, so may need closer to 25-30 units of basal. Plan to continue same novolog for now, based upon weight based stress of 2 dosing. PLAN FOR INPATIENT GLYCEMIC CONTROL: * Basal insulin * Lantus 15 units daily * Bolus insulin * NovoLog per scale ACHS or Q6hrs while NPO * Goal Range: Low 110 mg/dL - High 140 mg/dL * Correction Factor: 25 mg/dL/unit * Nutritional / Prandial insulin per carb ratio of 1 unit per 7 grams CHO consumed
[2024-03-10 07:15] LABS: Hemoglobin 9.8 g/dl (14.0-18.0); Mean Corpuscular Hemoglobin 26.7 pg (25.0-34.0); Mean Corpuscular Hgb Conc 30.6 g/dL (32.0-36.0); Mean Corpuscular Volume 87.2 fL (80.0-100.0); Mean Platelet Volume 9.4 fL (9.4-12.4); Platelet Count 175 K/uL (130-400); RDW Coefficient of Variation 18.1 % (11.5-14.5); RDW Standard Deviation 56.4 fL (36.4-46.3); Red Blood Count 3.67 M/uL (4.70-6.10)
--- NOTE | 2024-03-10 07:36 | Infectious Disease Progress Nt ---
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 He was seen at wound care on 01/27 at which time he had an excisional debridement and noted to have wound probe to bone, was planned for an MRI of foot given concerns for OM. WCX at that time with Pantoea agglomerans and MRSA. He also had another nonexcisional debridement on 02/19 wound care visit. On admission, was afebrile, vss. WBC wnl. ESR 94, CRP 12.3. MRI of R foot on 02/24 with osteomyelitis involving the head/neck of the fifth metatarsal and the base/proximal shaft of the fifth proximal phalanx; large plantar ulceration is seen at the level of the fifth metatarsophalangeal joint; diffuse cellulitis throughout the forefoot. Admission CXR with mild pulmonary vascular congestion and trace R pleural effusions. RLE doppler negative for DVT. He has been started on daptomycin and zosyn. ID consulted 03/03 for assistance. S/p right 5th MT head resection on 03/05. I spoke to podiatry and they dont think all the infected bone may have been removed and would feel more comfortable with a longer course of abx. Also noted that foot seemed to have a poor vascular supply. Baseline CK 15. Given concern for residual infected bone along with concern for poor blood supply, will treat with a 6 week course of IV antibiotics. Cultures with just skin edouard, however, this was in the setting of him being on abx. Prior cx history with MRSA and Pantoea, though this was a month ago. Will therefore keep on broader empiric coverage for the duration with daptomycin and cefepime. Micro 01/16 WCX: MRSA (I-tetracycline, S-clinda, Bactrim) 01/16 BCX: ngtd 01/18 MRSA screen: neg 01/19 C diff: neg 01/27 WCX: Pantoea agglomerans, MRSA 03/02 BCX: ngtd 03/05 OR cx: skin edouard 03/06 C diff: neg # OM of right head/neck of the fifth MT and base/proximal shaft of the fifth proximal phalanx s/p MT head resection on 03/05 # RLE cellulitis # h/o T2DM # ESRD on HD MWF - Nkechi stopped zosyn - Nkechi started cefepime 1g IV q24h (on discharge, can be changed to 2g IV three times weekly post-HD on HD days) - continue on daptomycin ~8mg/kg (575mg) IV q48h - he will need 6 weeks of above IV antibiotics starting from 03/05 (day of surgery), eot 04/16 - no statins while on daptomycin - monitor weekly CBC w diff, CMP, ESR, CRP, and CPK - follow up with either PCP or local ID provider ID will discontinue active follow up at this time. Please do not hesitate to reconsult the Infectious Diseases service as needed. Kellie Paeg MD [facility], Division of Infectious Diseases IDConnect: [phone] Admission and Anticipated Discharge Date Admission Date: March 02, 2024 Subjective This patient recommendation is based on a telemedicine consult request which was completed asynchronously through chart review and information provided by the primary physician. The patient was not seen or examined today. The evaluation is consultative in nature and all patient care and treatment decisions can either be accepted or rejected by the patient's primary hospital-based treating physician using their own independent medical judgment for their patient. Time Spent Reviewing Chart: 31+ minutes Results & Data Vital Signs (Past 12 Hours) Vital Signs Temp Pulse Resp BP Pulse Ox O2 Del Method 03/10/24 07:14 36.7 C 87 16 148/70 H 97 Room Air 03/09/24 20:35 36.6 C 87 16 133/52 L 95 Room Air 03/09/24 20:00 Room Air
[2024-03-10 07:52] LABS: BUN Creatinine Ratio 7.2 (10-20); Calcium 8.3 mg/dl (8.6-10.3); Creatinine Clr Calc Pharmacy 9.2 ml/min; Est GFR (African American) 9.9 ml/min; Est GFR (Non-African American) 8.6 ml/min; Potassium 4.4 mmol/L (3.5-5.1)
[2024-03-10] MEDS: CEFEPIME 1,000 MG in SYRINGE 0 ML IV SCH (08:06)
[2024-03-10] MEDS ORDERED: VANCOMYCIN CONSULT ACTIVE PRN (09:23)
--- NOTE | 2024-03-10 10:15 | Nephrology Progress Note ---
Date of Service March 10, 2024 Assessment & Plan (1) ESRD on dialysis: Plan: HD MWF. Followed by Dr. Acosta at [facility] [place]. AVF functioning well. Completed treatment yesterday with adequate clearance and UF. BP acceptable. Volume status controlled. Medications are appropriately dosed for kidney function. Nephrocaps daily Phoslo QAC. (2) Acute osteomyelitis of right foot: Plan: s/p fifth toe metatarsal head amputation on 03/05/24. Arterial Doppler of LE showed significant PVD. Daptomycin 475 mg IV q48h and Zosyn 4.5 g IV q12h. Plan for total 6 weeks of IV antibiotics starting from 03/05 --> 04/16. (3) Anemia: Plan: Chronic, stable. Notable history of chronic lower GI blood loss due to history of radiation proctitis. BENJAMÍN therapy and IV iron coordinated with HD. Admission and Anticipated Discharge Date Admission Date: March 02, 2024 Subjective No acute events overnight. Isidro was working with PT this AM. He feels well. HD completed yesterday without complications. Review of Systems Review of Systems: All systems reviewed & are unremarkable except as noted in HPI & below Physical Exam Constitutional: well developed and + frail appearing; no acute distress Eyes: no scleral abnormality and no corneal abnormality ENMT: Mouth: no oral mucosal abnormality and oral mucous membranes not dry Neck: normal visual inspection and trachea midline Respiratory: normal respiratory effort Auscultation: lungs clear to auscultation bilaterally Cardiovascular: Rate/Rhythm: regular rate Heart Sounds: normal S1 and normal S2 Extremities: + AV fistula; no edema Musculoskeletal: Extremities: no cyanosis and no clubbing Skin: normal turgor; no lesions Neurologic: Motor/Sensory: no tremor and no asterixis Psychiatric: Orientation: alert and oriented x 3 Results & Data Vital Signs (Past 12 Hours) Vital Signs Temp Pulse Resp BP Pulse Ox O2 Del Method 03/10/24 09:33 85 144/63 H 03/10/24 08:27 92 H 163/65 H 03/10/24 07:35 Room Air 03/10/24 07:14 36.7 C 87 16 148/70 H 97 Room Air Laboratory Results Laboratory Results - last 24 hr 03/09/24 03/09/24 03/09/24 13:41 16:32 20:33 WBC RBC Hgb Hct MCV MCH MCHC RDW Std Deviation RDW Coeff of Casandra Plt Count MPV Sodium Potassium Chloride Carbon Dioxide Anion Gap BUN Creatinine Est Cr Clr Drug Dosing Est GFR ( Amer) Est GFR (Non-Af Amer) BUN/Creatinine Ratio Glucose POC Glucose 129 H 153 H 125 H Calcium 03/10/24 03/10/24 06:54 07:41 WBC 7.80 RBC 3.67 L Hgb 9.8 L Hct 32.0 L MCV 87.2 MCH 26.7 MCHC 30.6 L RDW Std Deviation 56.4 H RDW Coeff of Casandra 18.1 H Plt Count 175 MPV 9.4 Sodium 137 Potassium 4.4 Chloride 98 Carbon Dioxide 29 Anion Gap 10 BUN 39 H Creatinine 5.45 H* Est Cr Clr Drug Dosing 9.2 Est GFR ( Amer) 9.9 Est GFR (Non-Af Amer) 8.6 BUN/Creatinine Ratio 7.2 L Glucose 117 H POC Glucose 111 H Calcium 8.3 L PG Care Time/CCT Total # of Minutes Spent Total Time Spent with Patient: Total time spent is greater than 50% in coordination of care (as documented) at patient's floor/unit and/or counseling patient: Coding Level of Care Code 66749 SUB INP/OBS CARE 3/50MIN Diagnoses ESRD on dialysis N18.6; Z99.2 Acute osteomyelitis of right foot M86.171 Anemia D64.9 Anemia type: due to chronic kidney disease (3) Anemia Anemia type: due to chronic kidney disease
[2024-03-10] MEDS: VANCOMYCIN HCL 1,500 MG in SODIUM CHLORIDE 0.9% 500 ML IV ONE (10:48)
[2024-03-10] MEDS ORDERED: DAPTOmycin 575 MG in SYRINGE 0 ML IV SCH (12:00)
--- NOTE | 2024-03-10 13:43 | Pharmacy Report ---
Pharmacy PK ABX Note - Date of Service March 10, 2024 - Assessment and Plan Assessment * Mr Madden is an 88yo M receiving abx for the treatment of R foot cellulitis/osteomyelitis. * Pt is to be discharged tomorrow, so abx were adjusted today for ease of transition to discharge. Pt had been receiving daptomycin/Zosyn, but has been changed to vancomycin/cefepime so that administration and labs can be coordinated with dialysis sessions. * Pt is to receive 6 weeks of IV abx, to be completed on 04/16/24, per ID recommendations. Plan Vancomycin * Loading dose: 1500 mg IV x1 dose * Random level ordered for tomorrow morning, pre-HD * Further dosing and monitoring to be coordinated as an outpt Pharmacy will continue to follow and will adjust dose/frequency as necessary. Thank you. Pharmacy has transitioned to AUC monitoring for vancomycin. AUC/NASIM is the preferred PK/PD target and is associated with decreased risk of nephrotoxicity compared to traditional trough targets.
--- NOTE | 2024-03-10 15:25 | Hospitalist Progress Note ---
Date of Service March 10, 2024 Assessment & Plan (1) Acute osteomyelitis of right foot: Plan: Patient presented for worsening right foot cellulitis/ulcer on 03/02 Right foot MRI on 02/25/2024 revealed diffuse cellulitis and osteomyelitis Also with an underlying osteomyelitis, 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, sample sent to pathology Vascular surgery had determined that his blood flow would be adequate for wound healing ID has finalized antibiotics upon discharge: Vancomycin and cefepime 2 g IV 3 times weekly post dialysis on dialysis days End date of antibiotics on 04/16 Monitor weekly CBC with differential, CMP, ESR, CRP, vancomycin levels while on antibiotic Wound care arranging for wound VAC upon discharge (2) ESRD on dialysis: Plan: Patient on Saturday and Saturday sessions of hemodialysis Nephrology on consult (3) Diabetic nephropathy associated with type 2 diabetes mellitus: Plan: Last A1c at 7.4% on 01/17/2024 Glucose 210 on admission Lantus BID + SSI T2DM diet BSG ACHS Adjust regimen as needed Pharmacy glycemic management consult in the setting of ESRD (4) GAVE (gastric antral vascular ectasia): Plan: Continue to monitor No need for EGD or colonoscopy for now per GI (5) Chronic upper GI bleeding: Plan: stable hb Patient does endorse occasional blood in his stool No signs of active bleeding on clinical exam (6) Cellulitis of right foot: (7) Diabetic ulcer of right foot: (8) Heart failure: Plan DNR/DNI VTE PPx: Hold chemical DVT PPx given chronic GI bleed; hold mechanical DVT PPx in the setting of weeping legs / diabetic foot infection Admission and Anticipated Discharge Date Admission Date: March 02, 2024 Subjective Patient feels well. Denies chest pain or shortness of breath. Review of Systems Review of Systems: All systems reviewed & are unremarkable except as noted in Subjective Physical Exam Physical Exam: General: Awake, conversant Heart: S1, S2/regular rate and rhythm, no murmur rubs or gallops Lungs: Clear to auscultation bilaterally. Normal effort Abdomen: Soft/nontender/nondistended. No hepatosplenomegaly Extremities: No clubbing/cyanosis. Right foot dressing on Behavior: Appropriate, cooperative Results & Data Results & Data Vital Signs (Past 12 Hours) Vital Signs Temp Pulse Resp BP Pulse Ox O2 Del Method 03/10/24 09:33 85 144/63 H 03/10/24 08:27 92 H 163/65 H 03/10/24 07:35 Room Air 03/10/24 07:14 36.7 C 87 16 148/70 H 97 Room Air Laboratory Results Abnormal lab results 03/09/24 03/09/24 03/10/24 Range/Units 16:32 20:33 06:54 RBC 3.67 L (4.70-6.10) M/uL Hgb 9.8 L (14.0-18.0) g/dl Hct 32.0 L (42.0-52.0) % MCHC 30.6 L (32.0-36.0) g/dL RDW Std Deviation 56.4 H (36.4-46.3) fL RDW Coeff of Casandra 18.1 H (11.5-14.5) % BUN 39 H (6-23) mg/dl Creatinine 5.45 H* (0.6-1.4) mg/dl BUN/Creatinine Ratio 7.2 L (10-20) Glucose 117 H (70-99(Fasting)) mg/dl POC Glucose 153 H 125 H (70-99) mg/dl Calcium 8.3 L (8.6-10.3) mg/dl 03/10/24 03/10/24 Range/Units 07:41 11:33 RBC (4.70-6.10) M/uL Hgb (14.0-18.0) g/dl Hct (42.0-52.0) % MCHC (32.0-36.0) g/dL RDW Std Deviation (36.4-46.3) fL RDW Coeff of Casandra (11.5-14.5) % BUN (6-23) mg/dl Creatinine (0.6-1.4) mg/dl BUN/Creatinine Ratio (10-20) Glucose (70-99(Fasting)) mg/dl POC Glucose 111 H 159 H (70-99) mg/dl Calcium (8.6-10.3) mg/dl PG Care Time/CCT Total # of Minutes Spent Total Time Spent with Patient: Total time spent is greater than 50% in coordination of care (as documented) at patient's floor/unit and/or counseling patient: Coding Level of Care Code 01881 SUB INP/OBS CARE MIN Diagnoses Acute osteomyelitis of right foot M86.171 ESRD on dialysis N18.6; Z99.2 Diabetic nephropathy associated with type 2 diabetes mellitus E11.21 GAVE (gastric antral vascular ectasia) K31.819 Chronic upper GI bleeding K92.2 Cellulitis of right foot L03.115 Diabetic ulcer of right midfoot associated with type 2 diabetes mellitus, with bone involvement without evidence of necrosis E11.621; L97.416 Diabetic foot ulcer location: midfoot Diabetes mellitus type: type 2 Non-pressure ulcer stage: with bone involvement without evidence of necrosis Heart failure I50.9 (7) Diabetic ulcer of right foot Diabetic foot ulcer location: midfoot Diabetes mellitus type: type 2 Non- pressure ulcer stage: with bone involvement without evidence of necrosis Qualified Code(s): E11.621 - Type 2 diabetes mellitus with foot ulcer; L97.416 - Non-pressure chronic ulcer of right heel and midfoot with bone involvement without evidence of necrosis
[2024-03-11] MEDS ORDERED: Nursing to Pharmacy Communication SCH (03:45)
--- NOTE | 2024-03-11 10:38 | Nephrology Progress Note ---
Date of Service March 11, 2024 Assessment & Plan (1) ESRD on dialysis: Plan: HD MWF. Followed by Dr. Acosta at [facility]. Orders for HD today were entered into the EHR and reviewed with the hog raiser. Isidro was seen and evaluated during dialysis. He is tolerating treatment well. AVF functioning well. Medications are appropriately dosed for kidney function. Nephrocaps daily Phoslo QAC. (2) Acute osteomyelitis of right foot: Plan: s/p fifth toe metatarsal head amputation on 03/05/24. ID consultation suggested cefepime and vancomycin coordinated with dialysis post discharge. (3) Anemia: Plan: Chronic, stable. Notable history of chronic lower GI blood loss due to history of radiation proctitis. BENJAMÍN therapy and IV iron coordinated with HD. Admission and Anticipated Discharge Date Admission Date: March 02, 2024 Subjective No acute events overnight. No complaints this AM. Isidro was seen and evaluated during hemodialysis. He is tolerating treatment well. Discharge plan was reviewed with Dr. Toth. Review of Systems Review of Systems: All systems reviewed & are unremarkable except as noted in HPI & below Physical Exam Constitutional: well developed and + frail appearing; no acute distress Eyes: no scleral abnormality and no corneal abnormality ENMT: Mouth: no oral mucosal abnormality and oral mucous membranes not dry Neck: normal visual inspection and trachea midline Respiratory: normal respiratory effort Auscultation: lungs clear to au scultation bilaterally Cardiovascular: Rate/Rhythm: regular rate Heart Sounds: normal S1 and normal S2 Extremities: + AV fistula; no edema Musculoskeletal: Extremities: no cyanosis and no clubbing Skin: normal turgor; no lesions Neurologic: Motor/Sensory: no tremor and no asterixis Psychiatric: Orientation: alert and oriented x 3 Results & Data Vital Signs (Past 12 Hours) Vital Signs Temp Pulse Resp BP Pulse Ox O2 Del Method 03/11/24 09:38 Room Air 03/11/24 07:20 36.5 C 86 16 138/54 L 95 Room Air Laboratory Results Laboratory Results - last 24 hr 03/10/24 03/10/24 03/10/24 11:33 16:37 20:24 POC Glucose 159 H 112 H 123 H Random Vancomycin 03/11/24 03/11/24 07:37 09:46 POC Glucose 166 H Random Vancomycin 12.3 PG Care Time/CCT Total # of Minutes Spent Total Time Spent with Patient: Total time spent is greater than 50% in coordination of care (as documented) at patient's floor/unit and/or counseling patient: Coding Level of Care Code 57008 SUB INP/OBS CARE 3/50MIN Diagnoses ESRD on dialysis N18.6; Z99.2 Acute osteomyelitis of right foot M86.171 Anemia D64.9 Anemia type: due to chronic kidney disease (3) Anemia Anemia type: due to chronic kidney disease
--- NOTE | 2024-03-11 11:36 | Pharmacy Report ---
Pharmacy PK ABX Note - Date of Service March 11, 2024 - Assessment and Plan Assessment 03/11: * Day #2 vancomycin. iHD today. Plan for 6 weeks abx per ID. 03/10: * Mr Madden is an 88yo M receiving abx for the treatment of R foot cellulitis/osteomyelitis. * Pt is to be discharged tomorrow, so abx were adjusted today for ease of transition to discharge. Pt had been receiving daptomycin/Zosyn, but has been changed to vancomycin/cefepime so that administration and labs can be coordin ated with dialysis sessions. * Pt is to receive 6 weeks of IV abx, to be completed on 04/16/24, per ID recommendations. Plan Vancomycin * Random vancomycin level this AM, 12.3mcg/mL (preHD level) - safe to re dose. * Will give vancomycin 1gm (~12mg/kg) X 1 dose today after HD. * Repeat random, pre HD level on Tuesday 03/13 to guide further dosing. Pharmacy will continue to follow and will adjust dose/frequency as necessary. Thank you. Pharmacy has transitioned to AUC monitoring for vancomycin. AUC/NASIM is the preferred PK/PD target and is associated with decreased risk of nephrotoxicity compared to traditional trough targets.
--- NOTE | 2024-03-11 15:38 | Hospitalist Progress Note ---
Date of Service March 11, 2024 Assessment & Plan (1) Acute osteomyelitis of right foot: Plan: Patient presented for worsening right foot cellulitis/ulcer on 03/02 Right foot MRI on 02/25/2024 revealed diffuse cellulitis and osteomyelitis Also with an underlying osteomyelitis, 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, sample sent to pathology Vascular surgery had determined that his blood flow would be adequate for wound healing ID has finalized antibiotics upon discharge: Vancomycin 1 g and cefepime 2 g IV 3 times weekly post dialysis on dialysis days End date of antibiotics on 04/16 Monitor weekly CBC with differential, CMP, ESR, CRP, vancomycin levels while on antibiotic Wound care arranging for wound VAC upon discharge (2) ESRD on dialysis: Plan: Patient on Saturday and Saturday sessions of hemodialysis Nephrology on consult (3) Diabetic nephropathy associated with type 2 diabetes mellitus: Plan: Last A1c at 7.4% on 01/17/2024 Glucose 210 on admission Lantus BID + SSI T2DM diet BSG ACHS Adjust regimen as needed Pharmacy glycemic management consult in the setting of ESRD (4) GAVE (gastric antral vascular ectasia): Plan: Continue to monitor No need for EGD or colonoscopy for now per GI (5) Chronic upper GI bleeding: Plan: stable hb Patient does endorse occasional blood in his stool No signs of active bleeding on clinical exam (6) Cellulitis of right foot: (7) Diabetic ulcer of right foot: (8) Heart failure: Plan DNR/DNI VTE PPx: Hold chemical DVT PPx given chronic GI bleed; hold mechanical DVT PPx in the setting of weeping legs / diabetic foot infection Likely discharge tomorrow to [facility]. Admission and Anticipated Discharge Date Admission Date: March 02, 2024 Subjective Patient feels well. Denies chest pain or shortness of breath. Seen at dialysis today. Review of Systems Review of Systems: All systems reviewed & are unremarkable except as noted in Subjective Physical Exam Physical Exam: General: Awake, conversant Heart: S1, S2/regular rate and rhythm, no murmur rubs or gallops Lungs: Clear to auscultation bilaterally. Normal effort Abdomen: Soft/nontender/nondistended. No hepatosplenomegaly Extremities: No clubbing/cyanosis. Right foot wound VAC on Behavior: Appropriate, cooperative Results & Data Results & Data Vital Signs (Past 12 Hours) Vital Signs Temp Pulse Pulse Pulse Pulse Resp BP 03/11/24 14:17 36.8 C 80 17 03/11/24 13:55 36.5 C 89 03/11/24 13:30 91 H 134/58 L 03/11/24 13:00 80 121/64 03/11/24 12:30 76 117/53 L 03/11/24 12:00 80 127/56 L 03/11/24 11:30 90 131/58 L 03/11/24 11:00 73 116/60 03/11/24 10:30 80 113/54 L 03/11/24 10:00 70 119/63 03/11/24 09:38 03/11/24 09:37 36.5 C 86 03/11/24 07:20 36.5 C 86 16 BP Pulse Ox O2 Del Method 03/11/24 14:17 160/65 H 95 Room Air 03/11/24 13:55 134/72 03/11/24 13:30 03/11/24 13:00 03/11/24 12:30 03/11/24 12:00 03/11/24 11:30 03/11/24 11:00 03/11/24 10:30 03/11/24 10:00 03/11/24 09:38 Room Air 03/11/24 09:37 03/11/24 07:20 138/54 L 95 Room Air Laboratory Results Abnormal lab results 03/10/24 03/10/24 03/11/24 Range/Units 16:37 20:24 07:37 POC Glucose 112 H 123 H 166 H (70-99) mg/dl 03/11/24 Range/Units 14:14 POC Glucose 117 H (70-99) mg/dl PG Care Time/CCT Total # of Minutes Spent Total Time Spent with Patient: Total time spent is greater than 50% in coordination of care (as documented) at patient's floor/unit and/or counseling patient: Coding Level of Care Code 26370 SUB INP/OBS CARE 2/35MIN Diagnoses Acute osteomyelitis of right foot M86.171 ESRD on dialysis N18.6; Z99.2 Diabetic nephropathy associated with type 2 diabetes mellitus E11.21 GAVE (gastric antral vascular ectasia) K31.819 Chronic upper GI bleeding K92.2 Cellulitis of right foot L03.115 Diabetic ulcer of right midfoot associated with type 2 diabetes mellitus, with bone involvement without evidence of necrosis E11.621; L97.416 Diabetic foot ulcer location: midfoot Diabetes mellitus type: type 2 Non-pressure ulcer stage: with bone involvement without evidence of necrosis Heart failure I50.9 (7) Diabetic ulcer of right foot Diabetic foot ulcer location: midfoot Diabetes mellitus type: type 2 Non- pressure ulcer stage: with bone involvement without evidence of necrosis Qualified Code(s): E11.621 - Type 2 diabetes mellitus with foot ulcer; L97.416 - Non-pressure chronic ulcer of right heel and midfoot with bone involvement without evidence of necrosis
[2024-03-11] MEDS: VANCOMYCIN HCL 1,000 MG in SODIUM CHLORIDE 0.9% 250 ML IV ONE (16:31)
--- NOTE | 2024-03-12 11:33 | Discharge Summary ---
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 He presented for weakness, tachycardia, and confusion on 03/02 while at the kidney care center. Patient received a full course of dialysis on 03/02. Patient does have a diabetic foot ulcer on the sole of his right foot x 5 weeks (required [place] admission on 01/16), but he reports he is not currently on antibiotics as he finishes courses of outpatient antibiotics; per review of notes this might have been Augmentin and clindamycin x 7 days starting on 01/30. Patient does endorse right foot pain intermittently, and he was having some this morning. He rates the pain 5/10 at worst and describes it as a dull, achy pain with radiation up the zhao. He has not taken any pain medication for his foot. He reports that the nursing staff at the renal center noted weeping from his left leg that started just today. Patient took all of his regular morning medications today; no recent change in medications. He manages his own medications at home. He denies smoking, tobacco use, or recent alcohol use. Patient is hypertensive at 141/62 at time of admission; vitals otherwise stable. 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 Patient denies fever, night-sweats, body aches, dizziness, lightheadedness, MULLEN, chest pain, chest palpitations, SOB, cough, abdominal pain, N/V/D, or saddle anesthesia. Admission Exam Per Admitting Provider General: no acute distress; pleasant affect; non-toxic appearing; well- nourished; cooperative; 95% SpO2 on RA HEENT: normocephalic, atraumatic; no scleral icterus; PERRLA w/ EOMs intact; moist mucus membrane; vision and hearing grossly intact Neck: supple; no lymphadenopathy; trachea midline Skin: warm, dry without signs of tenting; no cyanosis; no rashes, bruising, lesions, or erythema noted CV: chest wall NTP; RRR; S1/S2 normal; no murmurs/rubs/gallops; pulses intact and symmetric at radial, DP, and PT Lungs: no acute respiratory distress; symmetrical chest wall expansion; clear breath sounds across all lung edouard w/o adventitious sounds; no wheezing ABD: Soft, NTP; BS present; no rebound/guarding; no distention MSK: no tics or fasciculations; no edema noted in the LEs b/l, nonerythematous Lower extremities: Weeping along the bottom of the left leg; malodorous; 2 inch circumferential ulcer on the sole of the right foot with purulent drainage (see photo below); erythema on the dorsal aspect of the right foot Neuro: A&Ox3; normal mood and affect; fluent speech; no focal deficits; diminished sensation in the LEs B/L Principal Diagnosis Acute osteomyelitis of right foot Right diabetic foot infection Diabetic nephropathy leading to ESRD on dialysis Saturday Discharge Exam General: Awake, conversant Heart: S1, S2/regular rate and rhythm, no murmur rubs or gallops Lungs: Clear to auscultation bilaterally. Normal effort Abdomen: Soft/nontender/nondistended. No hepatosplenomegaly Extremities: No clubbing/cyanosis. Right foot wound VAC on Behavior: Appropriate, cooperative Discharge Data Allergies Allergy/AdvReac Type Severity Reaction Status Date / Time clarithromycin AdvReac Intermediate confusion Verified 02/27/24 09:04 fish oil AdvReac Intermediate hx of Verified 02/27/24 09:04 hemorrhage in past Sulfa (Sulfonamide AdvReac Intermediate severe Verified 02/27/24 09:04 Antibiotics) agitation/delirium Consultations 03/02/24 16:59 ED Decision to Admit Stat 03/02/24 17:58 Consult Podiatry Routine 03/02/24 22:53 Consult Nephrology Routine 03/03/24 08:08 Consult Infectious Diseases Routine 03/03/24 18:11 Consult Gastroenterology Routine Procedures Performed Operation Date: 03/05/24 09:40 Actual Procedures p Right 5th Metatarsal Head Section(Right) - Maximo Silva DPM Ordered Studies 03/02/24 17:58 US venous doppler LE RT Stat 03/04/24 22:22 US arterial duplex LE RT Routine Hospital Course (1) Acute osteomyelitis of right foot: Patient presented for worsening right foot cellulitis/ulcer on 03/02 Right foot MRI on 02/25/2024 revealed diffuse cellulitis and osteomyelitis Also with an underlying osteomyelitis, 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, sample sent to pathology Vascular surgery had determined that his blood flow would be adequate for wound healing ID has finalized antibiotics upon discharge: Vancomycin 1 g and cefepime 2 g IV 3 times weekly post dialysis on dialysis days End date of antibiotics on 04/16 Monitor weekly CBC with differential, CMP, ESR, CRP, vancomycin levels while on antibiotic Wound care arranging for wound VAC upon discharge (2) ESRD on dialysis: Patient on Saturday and Saturday sessions of hemodialysis Nephrology on consult (3) Diabetic nephropathy associated with type 2 diabetes mellitus: Last A1c at 7.4% on 01/17/2024 Glucose 210 on admission Lantus BID + SSI T2DM diet BSG ACHS Adjust regimen as needed Pharmacy glycemic management consult in the setting of ESRD (4) GAVE (gastric antral vascular ectasia): Continue to monitor No need for EGD or colonoscopy for now per GI (5) Chronic upper GI bleeding: stable hb Patient does endorse occasional blood in his stool No signs of active bleeding on clinical exam (6) Cellulitis of right foot: (7) Diabetic ulcer of right foot: (8) Heart failure: Plan Discharge today Total Time Total Time Spent Total Time Spent (In Minutes): 35 Discharge Plan Discharge Items Patient Disposition: Transfer [facility] Reason For Visit: R DIABETIC FOOT ULCER Discharge Diagnosis: Acute osteomyelitis of right foot Right diabetic foot infection Diabetic nephropathy leading to ESRD on dialysis Saturday Activity: As commented below Activity Comment: Per PT/OT recommendations Non-emergency contact: Primary Care Provider Call non-emergency contact if: you have any medication questions and your symptoms worsen Follow-up/Referrals: Sophie Patricia PA-C [Primary Care Provider] - Diet: Carb Consistent or DM2, Dialysis Renal and Heart Healthy Addtl Attending Provider Instructions: Advised to follow-up with PCP in 1 week Advised to note that you are being discharged on 2 IV antibiotics to be given 3 times weekly post dialysis on dialysis days on dialysis days: * Vancomycin 1g IV and * Cefepime 2 g IV End date of antibiotics on 04/16 Monitor weekly CBC with differential, CMP, ESR, CRP, vancomycin levels while on antibiotic Pending Studies at Discharge: No Stand-Alone Forms: My [facility] Skilled Items Patient informed of condition?: Yes DNR: Yes Discharge Level of Care: Skilled Communicable Disease: No Discharge Prognosis: Stable Lines: None Urinary Catheter: No Medications and DC Order Prescriptions: New pantoprazole 40 mg Tablet,Delayed Release (Dr/Ec) 40 mg PO BID 30 Days Qty: 60 0RF cefepime 2 gram recon soln See Rx Instructions .ROUTE .COMPLEX Rx Instructions: 2 g intravenously on dialysis days vancomycin 1,000 mg recon soln See Rx Instructions .ROUTE .COMPLEX Qty: 10 0RF Rx Instructions: 1g IV on dialysis days Continued lorazepam 0.5 mg tablet 0.5 mg PO Q12H PRN (Reason: anxiety) Qty: 60 2RF pravastatin 40 mg tablet 40 mg PO QPM Qty: 90 3RF metoprolol tartrate 50 mg tablet 50 mg PO BID Qty: 180 3RF nitroglycerin 0.4 mg tablet, sublingual 0.4 mg sublingual Q5M PRN (Reason: hypertensive emergency) Qty: 25 5RF Rx Instructions: Take 1 pill for blood pressure > 180 mm Hg amlodipine 5 mg tablet 5 mg PO 4XWK Qty: 90 3RF Rx Instructions: 5 mg orally on non-dialysis days (--); ProRenal 8 mg iron-800 mcg-1,000 unit tablet 1 tab PO QAM calcium acetate(phosphat bind) 667 mg capsule 2,001 mg PO TIDM Patient Comments: 1,334 mg PO 3 times a day with meals; with snacks take 2 capsules insulin asp prt-insulin aspart [Novolog Mix 70-30 U-100 Insuln] 100 unit/mL (70-30) solution See Rx Instructions .ROUTE .COMPLEX MDD 55 units Qty: 50 3RF Rx Instructions: Inject 35 units with breakfast and 20 units with supper; Can vary according to what bsg is. (DME) pen needle, diabetic [BD Ultra-Fine Tiffanie Pen Needle] 32 gauge x 5/32" needle See Rx Instructions .ROUTE .MEDSUPPLY Qty: 200 3RF Rx Instructions: use twice daily Colace Clear 50 mg capsule 50 mg PO DAILY PRN (Reason: Constipation) folic acid 1 mg tablet 1 mg PO QAM Santyl 250 unit/gram Ointment 1 applic EXT DAILY Qty: 30 0RF Discharge Orders: Discharge Order (Routine); Ordered 03/12/24 Ordered By: Chan Toth Admission Data Admit Date/Time: 03/02/24 17:58 Attending Provider: Chan Toth Admit Provider: Chencho Coronel Primary Care Provider: Sophie Patricia Other Providers: Julien Quiroga; [facility]; Chencho Coronel; Maximo Silva; Rehana Acosta; Sudhir Bhandari Coding Level of Care Code 80748 INP/OBS DISCH >30 MIN Diagnoses Acute osteomyelitis of right foot M86.171 ESRD on dialysis N18.6; Z99.2 Diabetic nephropathy associated with type 2 diabetes mellitus E11.21 GAVE (gastric antral vascular ectasia) K31.819 Chronic upper GI bleeding K92.2 Cellulitis of right foot L03.115 Diabetic ulcer of right midfoot associated with type 2 diabetes mellitus, with bone involvement without evidence of necrosis E11.621; L97.416 Diabetes mellitus type: type 2 Diabetic foot ulcer location: midfoot Non-pressure ulcer stage: with bone involvement without evidence of necrosis Heart failure I50.9
--- NOTE | 2024-03-12 13:45 | Pharmacy Report ---
Pharmacy Glycemic Short Note 2 - Date of Service March 12, 2024 - Glycemic Short BSG Results (Last 24 hours): 03/11/24 03/11/24 03/11/24 14:14 16:31 20:20 POC Glucose 117 H 132 H 110 H 03/12/24 03/12/24 07:45 11:39 POC Glucose 134 H 177 H OUTPATIENT ANTIDIABETIC REGIMEN: * Novolog 70/30, 35 units SQ daily with breakfast, 20 units SQ with dinner * HbA1c: unreliable in the setting of HD ASSESSMENT: 03/12: * BSGs remain within goal: [phone]/dl. Received 15 units of basal and 29 units of bolus insulin yesterday. * Continues on IV antibiotics and tolerating diet. * No changes to insulin therapy - Lantus 15 units daily and Novolog 25/7. 03/09 * Patient received total 51 units of insulin yesterday; 10 units basal and 41 units bolus. * BSGs yesterday were [phone] mg/dl. Fasting BSG today = 154 mg/dl. * Fasting BSGs have been trending slowly last couple of days. So, basal insulin dose increased to 15 units daily today AM. * Since post prandial BSGs were also elevated yesterday, Novolog carb ratio was tightened slightly in the morning. Continued the same today. * He is receiving dialysis today. 03/06 * Patient did not receive any insulin yesterday, as NPO for procedure * Fasting BSG 171 mg/dL - will resume low dose basal this AM with 10 units 03/05 * Pt is NPO for toe amputation in the OR later today. * BSGs have been below goal for the past ~24 hours. * Will hold Lantus for today and re-assess tomorrow. 03/03 * 88 year old admitted with diabetic foot ulcer, receiving IV antibiotics. Pharmacy consulted for glycemic management. Patient ESRD on HD - scheduled for MWF. Patient received total of 25 units of insulin yesterday, of which 20 units were basal insulin. * Fasting BSG 122 mg/dL - will continue with 20 units daily of basal insulin for now. May need to titrate up. Outpatient total insulin dose ~55 units, so may need closer to 25-30 units of basal. Plan to continue same novolog for now, based upon weight based stress of 2 dosing. PLAN FOR INPATIENT GLYCEMIC CONTROL: * Basal insulin * Lantus 15 units daily * Bolus insulin * NovoLog per scale ACHS or Q6hrs while NPO * Goal Range: Low 110 mg/dL - High 140 mg/dL * Correction Factor: 25 mg/dL/unit * Nutritional / Prandial insulin per carb ratio of 1 unit per 7 grams CHO consumed
--- NOTE | 2024-03-22 22:39 | Operative Report ---
Post Operative Report Pre & Post Diagnosis Operation Date: 03/05/24 09:40 Pre-Op Diagnosis: (1) Cellulitis of right foot: (2) Acute osteomyelitis of right foot: (3) Diabetic ulcer of right foot: Post-Op Diagnosis: (1) Cellulitis of right foot: (2) Acute osteomyelitis of right foot: (3) Diabetic ulcer of right foot: I identified the patient and participated in the time-out.: Yes Procedure Operation Date: 03/05/24 09:40 Actual Procedures p Right 5th Metatarsal Head Section(Right) - Maximo Silva DPM Surgeon Maximo Silva DPM Rippler None Estimated Blood Loss 5 Findings Consistent with Post-Op Diagnosis Obvious, immediate osteomyelitis was noted to the fifth metatarsal head on surgical dissection. The distal 2 cm of the fifth metatarsal was able to be resected and sent for pathology testing. No pop purulence was noted, however, no active bleeding noted surgical correction as well. Specimens right fifth metatarsal head sent for pathology testing. Anesthesia Type MAC Complications none Disposition Accompanied Patient To Recovery: Yes Disposition: Recovery Room Indications this patient is a recent hospital consult of ours who we have seen previously on an outpatient basis for ulcerations of his feet. In general, we have seen him for treatment of his nails and calluses while he was seeing the wound care c enter for advanced wound treatment for this ulceration. It has failed to heal and has developed evidence of infection. On this admission, the ulcer was noted to have the fifth metatarsal head immediately present within the ulcer. We did discuss that because of his severe vascular disease and advanced age, his treatment options are limited. Essentially, 1/5 metatarsal head resection can decrease pressure and infectious burden underneath the ulceration site. This was elected for rather than a more proximal amputation. Relative risks, outcomes, and instructions were all discussed at length. Consent was obtained for this fifth metatarsal head resection and bone biopsy. Description of Procedure the patient was brought to the operating room placed on the operating table in the supine position. Following menstruation IV sedation, local and Phill obtained utilizing 20 cc of half percent Marcaine plain. The right foot was then scrubbed prepped and draped in the usual aseptic manner. No tourniquet was utilized during this procedure due to these chronic peripheral arterial disease. attention was directed to the right fifth metatarsal ulceration where, upon curettage, the fifth metatarsal head was immediately identifiable. The bone was friable, soft, and nonviable. This extended proximally at least 2 cm. A sagittal saw was utilized to resect the fifth metatarsal as proximal as possible while minimizing further damage to the surrounding tissue, again due to his profound peripheral arterial disease. The remaining ulceration base was curettaged to attempt to improve the quality of the wound, however, the wound was 100% fibrotic before and after surgery, essentially. The fifth metatarsal head was sent in toto for pathology testing. The surgical site was flushed with copious amounts of sterile saline and packed with iodoform cause. This was then dressed with Xeroform gauze, 4 x 4 gauze, Kerlix, and Fermin wrap. The patient tolerated the procedure well as transferred to the recovery with vital signs stable and vascular status intact to the feet. He will likely benefit from as much vascular assessment or intervention as possible as well as likely wound VAC placement. I attest to the content of the Intraoperative Record and any orders documented therein. Any exceptions are noted below.
== END 2024-03-12 16:35 | DRG 629 ==
LOC: ED 14:41 → SUATTDRO 17:58 → 3E 17:58